=== PATIENT | male | born 1935 | race Caucasian/White ===

== ENCOUNTER 2016-11-09 12:38 | Inpatient (IN) | payer BC, OTHER ==
[2016-11-09] VITALS (7 sets, daily range): BP systolic 115–136; BP diastolic 71–91; PULSE 97–144; TEMP 36.7–37; O2SAT 94–99; BMI 28.8
[~2016-11-09] VITALS: Ht 177.8 cm; Wt 93.6 kg
[~2016-11-09 12:38] MED LIST: ASPEC81 PO; MULT-506 PO
[2016-11-09] MEDS ORDERED: FURO20TA PO (13:06)
[2016-11-09] MEDS ORDERED: TAMS0.4C38 PO (13:06)
[2016-11-09] MEDS ORDERED: CALC-51 PO (13:08)
[2016-11-09] MEDS ORDERED: CHOL2000 PO (13:08)
[2016-11-09] MEDS ORDERED: ASPI-232 PO (13:08)
[2016-11-09] MEDS ORDERED: METO-551 PO (13:08)
[2016-11-09] MEDS ORDERED: CALC500T83 PO (13:09)
[2016-11-09] MEDS ORDERED: DILTIAZEM HCL 5 MG/ML 5 ML VIAL IV STA ×2 (13:10)
[2016-11-09] MEDS ORDERED: CALC500C70 PO (13:10)
[2016-11-09] MEDS ORDERED: DILTIAZEM BOLUS / DRIP IV STA ×2 (13:10→14:48)
[2016-11-09] MEDS ORDERED: SODIUM CHLORIDE 0.9% 500ML 500 ML IV STA (13:14)
[2016-11-09] MEDS ORDERED: METOCLOPRAMIDE HCL INJ 5 MG/ML 2 ML VIAL IV STA (13:14)
[2016-11-09 13:22] LABS: BASO % 0.2 %; BASO ABS # 0.02 K/uL (0-0.2); COMPLETE YES; EOS % 3.1 %; HEMATOCRIT 29.9 % (42-52); IG% 0.5 %; LYMPH % 11.3 %; LYMPH ABS # 1.13 K/uL (1.2-3.4); MEAN CELL VOLUME 93.7 fL (80-100); MEAN CORPUSCULAR HEMOGLOBIN 32.3 pg (25-34); MEAN CORPUSCULAR HGB CONC 34.4 g/dl (32-36); MONO % 13.1 %; NEUT % 71.8 %; PLATELET COUNT 246 K/uL (130-400); RED BLOOD COUNT 3.19 M/uL (4.7-6.1); WHITE BLOOD COUNT 9.98 K/uL (4.8-10.8)
[2016-11-09 13:28] LABS: ALT/SGPT 27 U/L (12-78); BLOOD UREA NITROGEN 20 mg/dl (7-18); BUN/CREATININE RATIO 16.8 (10-20); CALCIUM 8.9 mg/dl (8.5-10.1); CARBON DIOXIDE 26 mmol/L (21-32); CHLORIDE 101 mmol/L (98-107); GLUCOSE 157 mg/dl (70-99); POTASSIUM 4.4 mmol/L (3.5-5.1); SODIUM 138 mmol/L (136-145)
[2016-11-09 13:34] LABS: ALKALINE PHOSPHATASE 80 U/L (45-117); AST/SGOT 18 U/L (15-37); CKMB/CK RATIO 5.1 (0-3.0)
--- NOTE | 2016-11-09 13:36 | DIAGNOSTIC IMAGING REPORT ---
SINGLE VIEW CHEST CLINICAL HISTORY: Atypical chest pain. Tachycardia. FINDINGS: An AP, portable, upright chest radiograph is correlated with radiograph of the thoracic spine dated 07/20/2016. The examination is degraded by portable technique and patient rotation. The heart is enlarged and there is atherosclerotic calcification of the thoracic aorta. There is evidence of previous cardiac valve surgery. The pulmonary vasculature is noncongested. There is elevation of the right hemidiaphragm with bibasilar atelectasis. Chronic residual thickening is observed. No airspace consolidation or pleural effusion is identified typical for pneumonia. A lobulated density projects over the lateral right upper lobe. This measures at least 3.6 cm and is of indeterminant significance. No pneumothorax is seen. The skeletal structures are osteopenic. There are healed left-sided rib fractures. Degenerative change is noted in the thoracic spine. IMPRESSION: 1. Cardiomegaly without radiographic evidence of congestive failure. 2. There is no airspace consolidation or pleural effusion. 3. There is an indeterminant 3.6 cm lobulated and possibly pleural-based density projecting over the right lateral upper chest. Follow-up with a contrast-enhanced chest CT is recommended for further assessment. Electronically signed by: Steven Foss M.D. 11/09/2016 1:34 PM Dictated Date/Time: 11/09/2016 1:31 PM
[2016-11-09] MEDS: DILTIAZEM HCL INJ 125 MG in DEXTROSE 5% 100ML IV PRN ×3 (14:04→21:20)
--- NOTE | 2016-11-09 14:12 | EMERGENCY ROOM VISIT NOTE ---
History Report prepared by Barak: Fantasma Webb Under the Supervision of: Dr. Billy Valentin M.D. First contact with patient: 13:04 Chief Complaint: REFERRED BY DOCTOR Stated Complaint: RAPID HEART RATE, SENT BY History of Present Illness The patient is a 81 year old male who presents to the Emergency Room with complaints of persistent tachycardia starting today. The patient currently denies any pain. He can feel a fast heart beat if he focuses but otherwise denies any heart palpitations. He denies any chest pain, shortness of breath, weakness, or any other complaints. The patient recently had an aortic valve replacement. Two days ago, he stopped taking his beta anatoliy because it was making him nauseous. At his PCP's office today, his heart rate was 155 beats per minute. He was referred to the Emergency Room by his PCP. Source of History: patient Onset: today Position: other (global) Symptom Intensity: No pain Quality: other (tachycardia) Timing: other (persistent) Associated Symptoms: No SOB, No chest pain, No weakness Review of Systems See HPI for pertinent positives & negatives. A total of 10 systems reviewed and were otherwise negative. Past Medical & Surgical Medical Problems: (1) Atrial flutter Surgical Problems: (1) H/O aortic valve replacement Family History Patient reports no known family medical history. Social History Smoking Status: Never Smoker Marital Status: Occupation Status: retired Current/Historical Medications Scheduled Aspirin (Aspir-81), 1 TAB PO BID Calcium/Vitamin D (Os-Gagan 500 Plus D), 1 TAB PO DAILY Cholecalciferol (Vitamin D3), 1 CAP PO DAILY Furosemide (Lasix), 20 MG PO DAILY Metoprolol Tartrate (Lopressor), 25 MG PO BID Multivitamin (Multivitamin), 1 TAB PO QPM Tamsulosin Hcl (Flomax), 0.4 MG PO PM Allergies Coded Allergies: Metoprolol (Verified Adverse Reaction, Mild, GI SYMPTOMS, 11/09/16) nausea Physical Exam Vital Signs Date Time Temp Pulse Resp B/P Pulse Ox O2 Delivery O2 Flow Rate FiO2 11/09/16 15:57 120 16 116/76 100 Room Air 11/09/16 15:31 148 24 105/71 99 Room Air 11/09/16 14:39 124 28 104/71 93 Room Air 11/09/16 14:13 103 22 101/51 100 Room Air 11/09/16 13:57 111 24 131/57 93 Room Air 11/09/16 13:41 114 11/09/16 13:39 123 26 115/80 93 Room Air 11/09/16 13:32 146 24 115/80 90 Room Air 11/09/16 13:06 99 Room Air 11/09/16 12:55 78 11/09/16 12:52 149 11/09/16 12:43 36.6 96 18 110/72 97 Room Air Physical Exam GENERAL: Patient is a healthy-appearing well-nourished HEAD: Normocephalic atraumatic EYES: Ocular movements intact pupils equal and react to light OROPHARYNX mucous membranes are moist no exudates present no erythema or edema present NECK: Supple no nuchal rigidity CHEST: Good equal expansion LUNGS: Clear and equal to auscultation CARDIAC: Normal S1 and S2 ABDOMEN: Soft nontender no guarding BACK: No CVA tenderness EXTREMITIES: No pain upon palpation normal muscle strength in all groups no clubbing cyanosis or edema NEURO: Patient is following commands is answering questions appropriately. Alert and oriented x3 Cranial Nerves 2-12 grossly intact Medical Decision & Procedures ER Provider Diagnostic Interpretation: X-ray results as stated below per interpretation by me and the radiologist: SINGLE VIEW CHEST CLINICAL HISTORY: Atypical chest pain. Tachycardia. FINDINGS: An AP, portable, upright chest radiograph is correlated with radiograph of the thoracic spine dated 07/20/2016. The examination is degraded by portable technique and patient rotation. The heart is enlarged and there is atherosclerotic calcification of the thoracic aorta. There is evidence of previous cardiac valve surgery. The pulmonary vasculature is noncongested. There is elevation of the right hemidiaphragm with bibasilar atelectasis. Chronic residual thickening is observed. No airspace consolidation or pleural effusion is identified typical for pneumonia. A lobulated density projects over the lateral right upper lobe. This measures at least 3.6 cm and is of indeterminant significance. No pneumothorax is seen. The skeletal structures are osteopenic. There are healed left-sided rib fractures. Degenerative change is noted in the thoracic spine. IMPRESSION: 1. Cardiomegaly without radiographic evidence of congestive failure. 2. There is no airspace consolidation or pleural effusion. 3. There is an indeterminant 3.6 cm lobulated and possibly pleural-based density projecting over the right lateral upper chest. Follow-up with a contrast-enhanced chest CT is recommended for further assessment. Electronically signed by: Steven Foss M.D. 11/09/2016 1:34 PM Dictated Date/Time: 11/09/2016 1:31 PM Laboratory Results 11/09/16 13:00 Red Blood Count 3.19, Mean Corpuscular Volume 93.7, Mean Corpuscular Hemoglobin 32.3, Mean Corpuscular Hemoglobin Concent 34.4, Mean Platelet Volume 9.0, Neutrophils (%) (Auto) 71.8, Lymphocytes (%) (Auto) 11.3, Monocytes (%) (Auto) 13.1, Eosinophils (%) (Auto) 3.1, Basophils (%) (Auto) 0.2, Neutrophils # (Auto ) 7.16, Lymphocytes # (Auto) 1.13, Monocytes # (Auto) 1.31, Eosinophils # (Auto ) 0.31, Basophils # (Auto) 0.02 11/09/16 13:00 Test 11/09/16 13:00 White Blood Count 9.98 K/uL (4.8-10.8) Red Blood Count 3.19 M/uL (4.7-6.1) Hemoglobin 10.3 g/dL (14.0-18.0) Hematocrit 29.9 % (42-52) Mean Corpuscular Volume 93.7 fL (80-100) Mean Corpuscular Hemoglobin 32.3 pg (25-34) Mean Corpuscular Hemoglobin Concent 34.4 g/dl (32-36) Platelet Count 246 K/uL (130-400) Mean Platelet Volume 9.0 fL (7.4-10.4) Neutrophils (%) (Auto) 71.8 % Lymphocytes (%) (Auto) 11.3 % Monocytes (%) (Auto) 13.1 % Eosinophils (%) (Auto) 3.1 % Basophils (%) (Auto) 0.2 % Neutrophils # (Auto) 7.16 K/uL (1.4-6.5) Lymphocytes # (Auto) 1.13 K/uL (1.2-3.4) Monocytes # (Auto) 1.31 K/uL (0.11-0.59) Eosinophils # (Auto) 0.31 K/uL (0-0.5) Basophils # (Auto) 0.02 K/uL (0-0.2) RDW Standard Deviation 51.6 fL (36.4-46.3) RDW Coefficient of Variation 15.2 % (11.5-14.5) Immature Granulocyte % (Auto) 0.5 % Immature Granulocyte # (Auto) 0.05 K/uL (0.00-0.02) Anion Gap 11.0 mmol/L (3-11) Est Creatinine Clear Calc Drug Dose 52.9 ml/min Estimated GFR () 64.4 Estimated GFR (Non- 55.6 BUN/Creatinine Ratio 16.8 (10-20) Calcium Level 8.9 mg/dl (8.5-10.1) Total Bilirubin 0.4 mg/dl (0.2-1) Direct Bilirubin 0.2 mg/dl (0-0.2) Aspartate Amino Transf (AST/SGOT) 18 U/L (15-37) Alanine Aminotransferase (ALT/SGPT) 27 U/L (12-78) Alkaline Phosphatase 80 U/L (45-117) Total Creatine Kinase 39 U/L (39-308) Creatine Kinase MB 2.0 ng/ml (0.5-3.6) Creatine Kinase MB Ratio 5.1 (0-3.0) Troponin I < 0.015 ng/ml (0-0.045) Total Protein 5.9 gm/dl (6.4-8.2) Albumin 3.1 gm/dl (3.4-5.0) Lipase 78 U/L (73-393) Labs reviewed by ED physician. Medications Administered Medications (Trade) Dose Ordered Sig/Rubens Route Start Time Stop Time Status Last Admin Dose Admin Diltiazem HCl (Cardizem Inj) 20 mg NOW STAT IV 11/09/16 13:10 11/09/16 13:14 DC 11/09/16 13:27 20 MG Diltiazem HCl 30 mg 30 mg NOW STAT IV 11/09/16 13:10 11/09/16 13:14 DC 11/09/16 13:52 30 MG Sodium Chloride (Nss 500ml) 500 ml @ 999 mls/hr Q31M STAT IV 11/09/16 13:14 11/09/16 13:44 DC 11/09/16 13:31 999 MLS/HR Metoclopramide HCl 10 mg 10 mg NOW STAT IV 11/09/16 13:14 11/09/16 13:15 DC 11/09/16 13:26 10 MG Diltiazem HCl 125 mg/Dextrose 125 ml @ 0 mls/hr Q0M PRN IV 11/09/16 13:30 12/09/16 13:29 11/09/16 14:04 5 MLS/HR Amiodarone HCL/ Dextrose 100 ml @ 600 mls/hr NOW ONCE IV 11/09/16 16:00 11/09/16 16:09 DC 11/09/16 16:58 600 MLS/HR Amiodarone HCL/ Dextrose (Nexterone / D5w) 200 ml @ 33.3 mls/hr Q6H1M IV 11/09/16 16:10 11/09/16 22:10 11/09/16 16:59 33.3 MLS/HR ECG Indication: tachycardia Rate (beats per minute): 148 Rhythm: atrial flutter Findings: no acute ischemic change, no ectopy, other (2:1 av conduction) Comparison ECG Date: no prior available Change: Repeat EKG showed atrial flutter, 96 beats per minute, variable AV block, no acute ischemic change. ED Course 1304: Past medical records reviewed. The patient was evaluated in room A09B. A complete history and physical examination was performed. 1310: Cardizem HCl 30 mg IV, Cardizem Inj 20 mg IV, Diltiazem HCl 1 ea IV 1314: Reglan Inj 10 mg IV, Sodium Chloride 500 ml @ 999 mls/hr IV 1330: Diltiazem HCl 125 mg/Dextrose 125 ml @ 0 mls/hr Protocol IV. Upon reexamination the patient is resting comfortably. I discussed results and treatment plan with the patient. He verbalizes agreement and understanding. [facility] The patient will be evaluated for further management. 1350: I reevaluated the patient who is doing well. Medical Decision Differential diagnosis: Etiologies such as cardiac ischemia, aortic dissection, pulmonary embolism, pneumonia, pneumothorax, musculoskeletal, infections, pericarditis, myocarditis , esophageal rupture, gastrointestinal, as well as others were entertained. This is an 81 year old who presents to the Emergency Department complaining of tachycardia. The patient has never had this problem before but he stopped taking his metoprolol on Tuesday because he thought it was giving him nausea. The patient is unsure as to when his tachycardia started. He is refusing metoprolol in the ED. For this reason he was given boluses of Cardizem x2 and placed on a cardizem drip. His repeat ekg showed a flutter. Based on this finding, i did discuss the case with the hospitalist service who agreed to admit the patient. Consults Time Called: 1325 Consulting Physician: Dr. Coburn from the [facility]ist Service Returned Call: [address] Coburn from the [facility]ist Service. Impression Primary Impression: Atrial flutter Scribe Attestation The scribe's documentation has been prepared under my direction and personally reviewed by me in its entirety. I confirm that the note above accurately reflects all work, treatment, procedures, and medical decision making performed by me. Departure Information Dispostion Being Evaluated By Hospitalist Referrals Jacinto Mcleod MD (PCP) Patient Instructions My [facility] Health Problem Qualifiers Primary Impression: Atrial flutter Atrial flutter type: unspecified Qualified Codes: I48.92 - Unspecified atrial flutter
[2016-11-09] MEDS ORDERED: SODIUM CHLORIDE 0.9% 1000ML 1,000 ML IV SCH (14:48)
[2016-11-09] MEDS ORDERED: ALUMINUM/MAGNESIUM/SIMETH (MAALOX MAX) 30 ML UDC PO PRN (15:00)
[2016-11-09] MEDS ORDERED: MAGNESIUM HYDROXIDE SUSP 30 ML UDC PO PRN (15:00)
[2016-11-09] MEDS ORDERED: ACETAMINOPHEN 325 MG TAB PO PRN (15:00)
[2016-11-09] MEDS ORDERED: POLYETHYLENE (MIRALAX) 17 GM PACK PO PRN (15:00)
[2016-11-09] MEDS ORDERED: ENOXAPARIN 1 MG/KG SQ SCH (15:00)
[2016-11-09] MEDS ORDERED: ONDANSETRON INJ 2 MG/ML 2 ML VIAL IV PRN (15:00)
[2016-11-09] MEDS ORDERED: SODIUM CHLORIDE 0.9% 1000ML 1,000 ML IV ONE (15:30)
--- NOTE | 2016-11-09 15:38 | History and Physical ---
History & Physical Date & Time of Service: Nov 09, 2016 at 15:16 Chief Complaint: Rapid Heart Rate, Sent By Primary Care Physician: Jacinto Mcleod MD History of Present Illness Source: patient Patient is a pleasant 81 y/o male, with PMHx of aortic stenosis s/p porcine valve replacement on 10/25/15, chronic lower extremity edema, and BPH, who presented to the ED because of tachycardia. Patient has home health 2x per week. Today when they checked his pulse, he was tachycardiac and sent him to the ED. EKG in ED demonstrated a. flutter. Patient is completely asymptomatic. Patient had an aortic valve replacement on 10/25 by [facility]. He was placed on Lopressor 25 mg PO BID postop, but patient stopped taking medication on 11/08 because of nausea and vomiting x5 days. Since discontinuing Lopressor, patient has not experienced any more N/V. Patient states he has had decreased appetite since the procedure, but is slowly starting to regain his appetite. Patient denies any fever, chills, sweats, lightheadedness, dizziness, vision changes, CP , palpitations, edema, SOB, wheezing, cough, abdominal pain, nausea, vomiting, diarrhea, urinary symptoms, melena, numbness/tingling, weakness, muscle/joint pain, anxiety/depression, active bleeding, or new skin discoloration/changes. Past Medical/Surgical History 1. Aortic stenosis s/p valve replacement 2. Chronic lower extremity edema 3. BPH Surgical: 1. Aortic valve replacement- porcine Family History Patient reports no known family medical history. Social History Smoking Status: Never Smoker Marital Status: Housing status: lives with significant other Occupational Status: retired Multi-Drug Resistant Organisms History of MDRO: No Allergies Coded Allergies: Metoprolol (Verified Adverse Reaction, Mild, GI SYMPTOMS, 11/09/16) nausea Home Medications Scheduled Aspirin (Aspir-81), 1 TAB PO BID Calcium/Vitamin D (Os-Gagan 500 Plus D), 1 TAB PO DAILY Cholecalciferol (Vitamin D3), 1 CAP PO DAILY Furosemide (Lasix), 20 MG PO DAILY Metoprolol Tartrate (Lopressor), 25 MG PO BID Multivitamin (Multivitamin), 1 TAB PO QPM Tamsulosin Hcl (Flomax), 0.4 MG PO PM Physical Exam Vital Signs Date Time Temp Pulse Resp B/P Pulse Ox O2 Delivery O2 Flow Rate FiO2 11/09/16 14:39 124 28 104/71 93 Room Air 11/09/16 14:13 103 22 101/51 100 Room Air 11/09/16 13:57 111 24 131/57 93 Room Air 11/09/16 13:41 114 11/09/16 13:39 123 26 115/80 93 Room Air 11/09/16 13:32 146 24 115/80 90 Room Air 11/09/16 13:06 99 Room Air 11/09/16 12:55 78 11/09/16 12:52 149 11/09/16 12:43 36.6 96 18 110/72 97 Room Air General Appearance: no apparent distress Head: normocephalic, atraumatic Eyes: PERRL ENT: hearing grossly normal Neck: supple Respiratory/Chest: lungs clear, no respiratory distress, no accessory muscle use Cardiovascular: + tachycardia, + systolic murmur, + abnormal rhythm Abdomen/GI: normal bowel sounds, non tender, soft Back: normal inspection Extremities/Musculoskelatal: no calf tenderness, + swelling (+2 pitting edema of bilateral lower extremities- baseline per patient ) Neurologic/Psych: alert, normal mood/affect, oriented x 3 Skin: normal color, warm/dry, no rash Diagnostics Laboratory Results Results Past 24 Hours Test 11/09/16 13:00 Range/Units White Blood Count 9.98 4.8-10.8 K/uL Red Blood Count 3.19 4.7-6.1 M/uL Hemoglobin 10.3 14.0-18.0 g/dL Hematocrit 29.9 42-52 % Mean Corpuscular Volume 93.7 80-100 fL Mean Corpuscular Hemoglobin 32.3 25-34 pg Mean Corpuscular Hemoglobin Concent 34.4 32-36 g/dl Platelet Count 246 130-400 K/uL Mean Platelet Volume 9.0 7.4-10.4 fL Neutrophils (%) (Auto) 71.8 % Lymphocytes (%) (Auto) 11.3 % Monocytes (%) (Auto) 13.1 % Eosinophils (%) (Auto) 3.1 % Basophils (%) (Auto) 0.2 % Neutrophils # (Auto) 7.16 1.4-6.5 K/uL Lymphocytes # (Auto) 1.13 1.2-3.4 K/uL Monocytes # (Auto) 1.31 0.11-0.59 K/uL Eosinophils # (Auto) 0.31 0-0.5 K/uL Basophils # (Auto) 0.02 0-0.2 K/uL RDW Standard Deviation 51.6 36.4-46.3 fL RDW Coefficient of Variation 15.2 11.5-14.5 % Immature Granulocyte % (Auto) 0.5 % Immature Granulocyte # (Auto) 0.05 0.00-0.02 K/uL Sodium Level 138 136-145 mmol/L Potassium Level 4.4 3.5-5.1 mmol/L Chloride Level 101 98-107 mmol/L Carbon Dioxide Level 26 21-32 mmol/L Anion Gap 11.0 3-11 mmol/L Blood Urea Nitrogen 20 7-18 mg/dl Creatinine 1.20 0.60-1.40 mg/dl Est Creatinine Clear Calc Drug Dose 52.9 ml/min Estimated GFR () 64.4 Estimated GFR (Non- 55.6 BUN/Creatinine Ratio 16.8 10-20 Random Glucose 157 70-99 mg/dl Calcium Level 8.9 8.5-10.1 mg/dl Total Bilirubin 0.4 0.2-1 mg/dl Direct Bilirubin 0.2 0-0.2 mg/dl Aspartate Amino Transf (AST/SGOT) 18 15-37 U/L Alanine Aminotransferase (ALT/SGPT) 27 12-78 U/L Alkaline Phosphatase 80 45-117 U/L Total Creatine Kinase 39 39-308 U/L Creatine Kinase MB 2.0 0.5-3.6 ng/ml Creatine Kinase MB Ratio 5.1 0-3.0 Troponin I < 0.015 0-0.045 ng/ml Total Protein 5.9 6.4-8.2 gm/dl Albumin 3.1 3.4-5.0 gm/dl Lipase 78 73-393 U/L Diagnostic Radiology SINGLE VIEW CHEST CLINICAL HISTORY: Atypical chest pain. Tachycardia. FINDINGS: An AP, portable, upright chest radiograph is correlated with radiograph of the thoracic spine dated 07/20/2016. The examination is degraded by portable technique and patient rotation. The heart is enlarged and there is atherosclerotic calcification of the thoracic aorta. There is evidence of previous cardiac valve surgery. The pulmonary vasculature is noncongested. There is elevation of the right hemidiaphragm with bibasilar atelectasis. Chronic residual thickening is observed. No airspace consolidation or pleural effusion is identified typical for pneumonia. A lobulated density projects over the lateral right upper lobe. This measures at least 3.6 cm and is of indeterminant significance. No pneumothorax is seen. The skeletal structures are osteopenic. There are healed left-sided rib fractures. Degenerative change is noted in the thoracic spine. IMPRESSION: 1. Cardiomegaly without radiographic evidence of congestive failure. 2. There is no airspace consolidation or pleural effusion. 3. There is an indeterminant 3.6 cm lobulated and possibly pleural-based density projecting over the right lateral upper chest. Follow-up with a contrast-enhanced chest CT is recommended for further assessment. Electronically signed by: Steven Foss M.D. 11/09/2016 1:34 PM Dictated Date/Time: 11/09/2016 1:31 PM The status of this report is Signed. Draft = Not yet reviewed or approved by Radiologist. Signed = Reviewed and approved by Radiologist. EKG TOSHA MILLER ID:[id number] 09-NOV-2016 12:49:24 [facility] Atrial flutter with 2:1 A-V conduction ST & T wave abnormality, consider inferior ischemia ST & T wave abnormality, consider anterolateral ischemia Abnormal ECG No previous ECGs available 25mm/s 10mm/mV 150Hz 8.0 SP2 12SL 241 DARRIAN: 0 Referred by: Unconfirmed Vent. rate 148 BPM SC interval * ms QRS duration 72 ms QT/QTc 332/521 ms P-R-T axes 208 29 -[birth year] -1935 (81 yr) Male Room:A9 Loc:15 Book Mender:ZHANG Jenkins ind: Impression Assessment and Plan 81 y/o male, with PMHx of aortic stenosis s/p porcine valve replacement on , chronic lower extremity ed4ema, and BPH, who presented to the ED because of tachycardia. A. Flutter on EKG: - Admit tele - Continue IV Cardizem drip - IV Amiodarone 150 mg bolus, then continue with drip- patient remained in 140s despite receiving ~50 mg IV Cardizem in ED - Continue ASA 81 mg PO BID - Consult cardiology, appreciate recommendations -- Patient follows with [facility], Dr. Mcleod - NPO after midnight, ?MÓNICA/cardioversion by cardiology - IV NSS @ 100 ml/hr x1 bag - Check mag level, patient had nausea/vomiting x5 days because of adverse reaction to Lopressor - Follow CBC and PRP BPH: - Continue Flomax 0.4 mg PO QPM Chronic lower extremity edema: - Patient states swelling is currently at baseline - Continue Lasix 20 mg PO daily Lesion of right lateral upper chest noted on CXR: - Recommend CT follow-up - CXR- Cardiomegaly without radiographic evidence of congestive failure. There is no airspace consolidation or pleural effusion. There is an indeterminant 3.6 cm lobulated and possibly pleural-based density projecting over the right lateral upper chest. GI Prophylaxis: - Maalox PRN - IV Zofran PRN - Colace and/or Milk of Mag PRN DVT prophylaxis: - Eliquis 5 mg PO BID per cardiology - MARISA and SCDs Code Status: - LEVEL I, FULL Dispo: - Lives with at home. Has home health 2x per week. Level of Care Telemetry Resuscitation Status FULL RESUSCITATION VTE Prophylaxis VTE Risk Assessment Done? Y/N: Yes Risk Level: High Given or contraindicated: Enoxaparin (Lovenox)SQ, T.E.D. Stockings, SCD's
[2016-11-09] MEDS ORDERED: AMIODARONE IV BOLUS / DRIP IV STA (15:45)
[2016-11-09] MEDS ORDERED: AMIODARONE / D5W 100 ML IV ONE (16:00)
[2016-11-09] MEDS ORDERED: AMIODARONE / D5W 200 ML IV SCH ×2 (16:10→22:10)
[2016-11-09] MEDS: TAMSULOSIN HCL 0.4 MG CAP PO SCH (20:28)
[2016-11-09] MEDS: MULTIVITAMIN TAB PO SCH (20:28)
[2016-11-09] MEDS ORDERED: NURSING VERBAL MED ORDER ONE (20:30)
[2016-11-09] MEDS ORDERED: DILTIAZEM HCL INJ 10 MG in SYRINGE 0 ML IV SCH (20:30)
[2016-11-09] MEDS: APIXABAN 2.5 MG TAB PO SCH (20:35)
[2016-11-09] MEDS ORDERED: ASPIRIN 81 MG ECTAB PO SCH (21:00)
[2016-11-09] MEDS ORDERED: AMIODARONE HCL INJ 50 MG/ML 3 ML VIAL IV STA (22:52)
[2016-11-09] MEDS ORDERED: AMIODARONE / D5W 100 ML IV SCH (23:00)
[2016-11-10] VITALS (24 sets, daily range): BP systolic 61–146; BP diastolic 44–88; PULSE 82–137; TEMP 36.4–37; O2SAT 90–99
[2016-11-10] MEDS: DILTIAZEM HCL INJ 125 MG in DEXTROSE 5% 100ML IV PRN ×3 (01:45→16:00)
[2016-11-10] MEDS ORDERED: NITROGLYCERIN OINT 2% 1GM PACKET ONE (05:14)
[2016-11-10] MEDS ORDERED: NURSING VERBAL MED ORDER ONE ×8 (05:30→15:15)
--- NOTE | 2016-11-10 05:31 | Progress Note ---
Progress Note RESIDENT NIGHT CALL COVERAGE Overnight, HR was elevated on multiple occasions. Initially, pt was only on amiodarone drip with bolus. Diltiazem drip with bolus was added. Later a further dose of amiodarone was added. His HR responded eventually. Around 5:15 AM, I was called to see patient for left sided chest and shoulder pain. came immediately to see patient, he was getting EKG, and talking well. Reports pain started 15-20 minutes ago and has been persistent, came on own its own. Does not radiate, feels like a dull ache. Patient confirmed that he is a FULL CODE. Chart reviewed - pt recently had aortic valve replacement at [facility] at beginning of month, was seen by home health who told him to come in. No chest pain prior to this. Doctorate Of Chiropractic is Dr Stafford, PCP is Dr Mcleod ([facility]). Admitted for tachycardia. Feels unwell with metoprolol - causes n/v. O/E Gen - Awake, alert CVS - irregularly irregular. systolic murmur audible over precordium Chest - CTAB Abd- SNT, BS active Ext - no edema EKGs: 5:12 AM - HR 98 bpm. Atrial flutter with variable block. No ST elevation. Previous EKGs earlier 16:20 were atrial flutter with 2:1 block Previous EKG at 14:09 also atrial flutter with variable block. Looks similar to most recent. Assessment - Ischemia - tachycardia induced vs coronary vs Anxiety Plan 3rd set of troponins taken just now with routine labs (may consider getting 4th? ) 1 inch nitropaste On further review, 529AM - pt reports pain is tolerable. 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
[2016-11-10 05:35] LABS: HEMATOCRIT 28.3 % (42-52); MEAN CELL VOLUME 93.4 fL (80-100); MEAN CORPUSCULAR HEMOGLOBIN 32.3 pg (25-34); MEAN CORPUSCULAR HGB CONC 34.6 g/dl (32-36); MEAN PLATELET VOLUME 8.6 fL (7.4-10.4); PLATELET COUNT 214 K/uL (130-400); RED BLOOD COUNT 3.03 M/uL (4.7-6.1); WHITE BLOOD COUNT 9.71 K/uL (4.8-10.8)
[2016-11-10] MEDS: NITROGLYCERIN OINT 2% 1GM PACKET EXT SCH ×3 (05:53→17:37)
[2016-11-10 06:06] LABS: BLOOD UREA NITROGEN 17 mg/dl (7-18); BUN/CREATININE RATIO 15.8 (10-20); CALCIUM 8.2 mg/dl (8.5-10.1); CARBON DIOXIDE 26 mmol/L (21-32); CHLORIDE 102 mmol/L (98-107); GLUCOSE 184 mg/dl (70-99); MAGNESIUM 2.1 mg/dl (1.8-2.4); POTASSIUM 4.1 mmol/L (3.5-5.1); SODIUM 138 mmol/L (136-145)
[2016-11-10] MEDS ORDERED: MoRPHine SULFATE 2 MG/ML CARP IV PRN (07:30)
[2016-11-10] MEDS ORDERED: NITROGLYCERIN 0.4 MG SL PER TAB CHARGE SL PRN (07:30)
[2016-11-10] MEDS ORDERED: MoRPHine SULFATE 2 MG/ML CARP ONE (07:31)
[2016-11-10] MEDS: FUROSEMIDE 20 MG TAB PO SCH ×2 (09:00→13:00)
[2016-11-10] MEDS: APIXABAN 2.5 MG TAB PO SCH ×2 (09:21→21:34)
[2016-11-10] MEDS ORDERED: CANNULA ONE ×2 (09:31)
[2016-11-10] MEDS ORDERED: BENZOCAIN/TETRACA/BUTAM SPRAY 200 APPLN/20 GM SPRY ONE (09:31)
--- NOTE | 2016-11-10 10:40 | Cardiology Procedure Brief Nt ---
Preliminary Cardiology Note Procedure Date Nov 10, 2016. Pre-Procedure Diagnosis Atrial Flutter Post-Procedure Diagnosis Atrial Fib Procedure(s) Performed Attempted to pass MÓNICA probe unsuccessfully [facility] Representative Nydia Switching Operator(s) none Estimated Blood Loss none Medication(s) Anesthesia provided by anesthesia department with Propofol and neosyneprine Preliminary Findings small bruise right posterior oropharynx Recommendations medical Tx and possible CV in 3 weeks Specimens none Complication(s) Hypotensive with propofol requiring norsynephrine SBP at end of procedure with patient awake was back to baseline Disposition
--- NOTE | 2016-11-10 10:44 | Cardiology Follow-Up ---
Subjective General Date of Service: Nov 10, 2016. History of Present Illness The patient is a 81 year old male Allergies Coded Allergies: Metoprolol (Verified Adverse Reaction, Mild, GI SYMPTOMS, 11/09/16) nausea Social History Smoking Status: Never Smoker Hx Tobacco Use In Past Year?: No Hx Alcohol Use - Type And Amou: No Hx Substance Use - Type And Am: No Physical Exam Vital Signs Last Vital Signs Documentation Date Time Temp Pulse Resp B/P Pulse Ox O2 Delivery O2 Flow Rate FiO2 11/10/16 10:31 101 16 88/61 99 Nasal Cannula 4 11/10/16 08:00 36.4 Assessment and Plan Assessment and Plan Unable to pass MÓNICA probe and hypotensive with propofol required neosynephrine to support BP Mild sore throat after NPO four hours then cold liquids first, if tolerated, if moderate to severe Pain ENT evaluation Now in afib with better rate control Plan apixaban BID Cardizem CD 120mg to start tomorrow Cardizem drip if HR fast and BP is stable this afternoon Limited bedside echo" No effusion Normal LV function AoV not well seen but gradients not high RV dilated with severe RV hypokinesis D/w in detail Laboratory Results Last 24 Hours Test 11/09/16 13:00 11/09/16 21:00 11/09/16 21:10 11/10/16 05:00 White Blood Count 9.98 K/uL Red Blood Count 3.19 M/uL Hemoglobin 10.3 g/dL Hematocrit 29.9 % Mean Corpuscular Volume 93.7 fL Mean Corpuscular Hemoglobin 32.3 pg Mean Corpuscular Hemoglobin Concent 34.4 g/dl Platelet Count 246 K/uL Mean Platelet Volume 9.0 fL Neutrophils (%) (Auto) 71.8 % Lymphocytes (%) (Auto) 11.3 % Monocytes (%) (Auto) 13.1 % Eosinophils (%) (Auto) 3.1 % Basophils (%) (Auto) 0.2 % Neutrophils # (Auto) 7.16 K/uL Lymphocytes # (Auto) 1.13 K/uL Monocytes # (Auto) 1.31 K/uL Eosinophils # (Auto) 0.31 K/uL Basophils # (Auto) 0.02 K/uL RDW Standard Deviation 51.6 fL RDW Coefficient of Variation 15.2 % Immature Granulocyte % (Auto) 0.5 % Immature Granulocyte # (Auto) 0.05 K/uL Sodium Level 138 mmol/L Potassium Level 4.4 mmol/L Chloride Level 101 mmol/L Carbon Dioxide Level 26 mmol/L Anion Gap 11.0 mmol/L Blood Urea Nitrogen 20 mg/dl Creatinine 1.20 mg/dl Est Creatinine Clear Calc Drug Dose 52.9 ml/min Estimated GFR () 64.4 Estimated GFR (Non- 55.6 BUN/Creatinine Ratio 16.8 Random Glucose 157 mg/dl Calcium Level 8.9 mg/dl Total Bilirubin 0.4 mg/dl Direct Bilirubin 0.2 mg/dl Aspartate Amino Transf (AST/SGOT) 18 U/L Alanine Aminotransferase (ALT/SGPT) 27 U/L Alkaline Phosphatase 80 U/L Total Creatine Kinase 39 U/L Creatine Kinase MB 2.0 ng/ml 1.7 ng/ml Creatine Kinase MB Ratio 5.1 Troponin I < 0.015 ng/ml < 0.015 ng/ml Total Protein 5.9 gm/dl Albumin 3.1 gm/dl Lipase 78 U/L Test 11/10/16 05:23 White Blood Count 9.71 K/uL Red Blood Count 3.03 M/uL Hemoglobin 9.8 g/dL Hematocrit 28.3 % Mean Corpuscular Volume 93.4 fL Mean Corpuscular Hemoglobin 32.3 pg Mean Corpuscular Hemoglobin Concent 34.6 g/dl RDW Standard Deviation 51.2 fL RDW Coefficient of Variation 15.2 % Platelet Count 214 K/uL Mean Platelet Volume 8.6 fL Sodium Level 138 mmol/L Potassium Level 4.1 mmol/L Chloride Level 102 mmol/L Carbon Dioxide Level 26 mmol/L Anion Gap 10.0 mmol/L Blood Urea Nitrogen 17 mg/dl Creatinine 1.10 mg/dl Est Creatinine Clear Calc Drug Dose 57.7 ml/min Estimated GFR () 71.6 Estimated GFR (Non- 61.8 BUN/Creatinine Ratio 15.8 Random Glucose 184 mg/dl Calcium Level 8.2 mg/dl Magnesium Level 2.1 mg/dl Creatine Kinase MB 1.7 ng/ml Troponin I < 0.015 ng/ml
--- NOTE | 2016-11-10 10:47 | Clinical Documentation Query ---
BELA Khoury : CLINICAL DOCUMENTATION QUERY Patient is a an 81 year old male admitted about two weeks postoperatively from porcine aortic valve replacement for new onset of atrial flutter. Additionally, this is in the setting of non-compliance with prescribed beta blockade regimen. Please clarify as able and as clinically appropriate. Thank you. In your clinical opinion is this patient being managed for: ( ) Postoperative atrial flutter, a complication of bioprosthetic AVR ( ) Atrial flutter due to non-compliance with prescribed beta blockade regimen ( ) Postoperative atrial flutter, a complication of bioprosthetic AVR and atrial flutter due to non-compliance with prescribed beta blockade regimen ( x) Other explanation of clinical findings (Please Explain) - see notes - probably all of above ( ) Unable to determine (Please Define) ( ) Need to Discuss ( ) Not Agree The medical record reflects the following clinical findings, treatment, and risk factors. Clinical Indicators: As above Treatment: Cardizem infusion, IV Amiodarone, ASA, cardiology consultation, possible MÓNICA/CV, IVF, serial labs Risk Factors: AVR and non-compliance with beta anatoliy postoperatively. Please clarify and document your clinical opinion in the progress notes and discharge summary. Terms such as "probable", "suspected", "likely", "questionable", "possible", or "still to be ruled out" are acceptable. IF IN AGREEMENT, YOU MUST DOCUMENT ABOVE DIAGNOSTIC STATEMENT IN DAILY PROGRESS NOTES AND DISCHARGE SUMMARY. This document is not part of the patient's record. Thank You, Simba William, IVETTE [phone]
[2016-11-10] MEDS ORDERED: PROPOFOL IV EMULSION 10 MG/ML 20 ML VIAL IV ONE (10:56)
[2016-11-10] MEDS ORDERED: LIDOCAINE HCL 2% 2 ML VIAL (20MG/ML) ONE (10:56)
--- NOTE | 2016-11-10 11:09 | DIAGNOSTIC IMAGING REPORT ---
CHEST ONE VIEW PORTABLE CLINICAL HISTORY: Shortness of breath COMPARISON STUDY: 11/09/2016 FINDINGS: The heart is enlarged. There is a small right pleural effusion. There is mild elevation interstitium, likely representing mild pulmonary vascular congestion.. There is a persistent pleural-based opacity within the right upper lung zone measuring 3.5 cm. Multiple old left-sided rib fractures are visualized.[ IMPRESSION: 1. Cardiomegaly and mild interstitial thickening, likely representing mild pulmonary vascular congestion. 2. Small right pleural effusion 3. Stable 3.5 cm pleural-based opacity within the right upper lung zone laterally Electronically signed by: John Luke M.D. 11/10/2016 11:07 AM Dictated Date/Time: 11/10/2016 11:05 AM
--- NOTE | 2016-11-10 11:10 | OPERATIVE REPORT ---
DATE OF OPERATION: 11/10/2016 The patient was brought to the cardiac catheterization laboratory where anesthesia provided sedation. The plan was for a MÓNICA/cardioversion. We were unable to pass the MÓNICA probe after multiple attempts, even with manipulation of his jaw. In addition, he had hypotension with additional doses of propofol and it was deemed that we were better to stop the procedure rather than continue with his associated hypotension. He was given Patrick-Synephrine by anesthesia, which improved his blood pressure. He awoke at the end of the procedure, he had a mild sore throat. There appears to be an area of bruising in the right posterior oropharynx. Next, there was no blood at any time with suctioning during the attempted procedure. At the end of the procedure, he was answering questions, his blood pressure was stable. He will be monitored now in the cardiac catheterization laboratory. In addition, a bedside echocardiogram was performed. His LV size and function was normal. There was no pericardial effusion. His aortic valve was not well seen, but appears to have appropriate hemodynamics. His right heart though is severely dilated and hypokinetic. According to the postoperative MÓNICA report 2 weeks ago, this would be a new finding. With the procedure it looks like he converted from atrial flutter to atrial fibrillation, and with afib his heart rate has been much better controlled. He then converted back to Atrial Flutter and appeared to be in CHF. In light of his hemodynamic issues and CHF he was transferred to the ICU for close monitoring. I attest to the content of the Intraoperative Record and any orders documented therein. Any exceptions are noted below. YESY
[2016-11-10] MEDS ORDERED: OPTIRAY 320 IV PRN (11:30)
[2016-11-10] MEDS ORDERED: AMIODARONE IV BOLUS / DRIP IV STA (11:36)
--- NOTE | 2016-11-10 12:25 | Anesthesiology Progress Note ---
Anesthesia Post Op Note Date & Time Nov 10, 2016 at 12:25 Vital Signs Pain Intensity: 0 Vital Signs Past 12 Hours Date Time Temp Pulse Resp B/P Pulse Ox O2 Delivery O2 Flow Rate FiO2 11/10/16 11:10 110 16 133/45 92 Nasal Cannula 4 11/10/16 10:55 111 16 99/61 92 Nasal Cannula 4 11/10/16 10:35 130 16 97/76 95 Nasal Cannula 4 11/10/16 10:31 101 16 88/61 99 Nasal Cannula 4 11/10/16 10:26 82 16 88/50 99 Nasal Cannula 4 11/10/16 10:21 92 16 80/44 99 Nasal Cannula 4 11/10/16 10:16 115 16 61/45 99 Nasal Cannula 4 11/10/16 10:12 118 16 82/52 99 Nasal Cannula 4 11/10/16 10:07 129 16 113/64 99 Nasal Cannula 4 11/10/16 08:00 98 Nasal Cannula 2.0 11/10/16 08:00 36.4 137 24 109/88 98 Nasal Cannula 2.0 11/10/16 05:16 106 24 104/79 98 Nasal Cannula 2.0 11/10/16 04:04 36.9 115 24 135/69 92 Room Air 11/10/16 04:01 Room Air 11/10/16 03:47 36.9 115 24 135/69 92 Room Air 11/10/16 03:15 126 11/10/16 00:56 94 Notes Mental Status: alert / awake / arousable, participated in evaluation Pt Amnestic to Procedure: Yes Nausea / Vomiting: adequately controlled Pain: adequately controlled Airway Patency, RR, SpO2: stable & adequate BP & HR: stable & adequate Hydration State: stable & adequate Anesthetic Complications: no major complications apparent
--- NOTE | 2016-11-10 12:33 | DIAGNOSTIC IMAGING REPORT ---
CT ANGIOGRAPHY OF THE CHEST, ABDOMEN, AND PELVIS CLINICAL HISTORY: Chest pain radiating to back. Hypotension. Recent aortic valve replacement. COMPARISON STUDY: Chest radiograph November 09, 2016 and November 10, 2016. TECHNIQUE: Before and following the IV administration of 120 mL of Optiray-320, helical axial images of the chest, abdomen and pelvis were obtained. Maximal intensity projections and sagittal and coronal reformats were viewed on an independent 3D workstation. IV contrast was administered without complication. CT DOSE: 1471.61 mGy.cm FINDINGS: The heart is moderately enlarged. There are post surgical findings consistent with an aortic valve replacement. There is no intramural hematoma or aortic dissection. There are findings consistent with a right-sided thoracotomy for aortic valve replacement. A moderate right pleural effusion is present. A small left pleural effusion is noted. The lungs are suboptimally assessed due to respiratory motion. There is no significant pericardial effusion. There is mild dilatation of the central pulmonary arteries. No enlarged thoracic lymph nodes are present. There is trace gas within the operative bed, anterior to the ascending aorta. The liver, spleen, adrenal glands, kidneys and pancreas are unremarkable with exception of a centimeter right renal calculus and bilateral parapelvic cysts. Note is made of hypodense nonenhancing abnormalities within each groin. The right groin abnormality measures 7 x 3.9 cm. These are likely postprocedural. No pseudoaneurysm is identified on the CTA. There is extensive atherosclerotic plaque within the abdominal aorta and the branch vessels. Thoracic spine compression fractures are incidentally noted. IMPRESSION: 1. Postsurgical findings consistent with a right anterior thoracotomy and aortic valve replacement. Small amount of fluid and gas within the operative bed is within normal limits in the early postoperative setting. No aortic dissection. No rupture. 2. Moderate right and small left pleural effusions with associated opacity suggestive atelectasis. 3. Deformity of the anterior right chest wall which is likely postsurgical. 4. Hypodense abnormalities within each groin, as described above. These are likely postprocedural and may reflect seromas or resolving hematomas. No pseudoaneurysm identified. Electronically signed by: Mendel Shelby M.D. 11/10/2016 12:31 PM Dictated Date/Time: 11/10/2016 12:05 PM
[2016-11-10] MEDS ORDERED: AMIODARONE 150MG / 100ML D5W ONE ×2 (12:42→14:39)
[2016-11-10] MEDS: AMIODARONE / D5W 200 ML IV SCH (12:59)
[2016-11-10 13:00] LABS: HEMATOCRIT 28.5 % (42-52); MEAN CELL VOLUME 93.8 fL (80-100); MEAN CORPUSCULAR HEMOGLOBIN 32.2 pg (25-34); MEAN CORPUSCULAR HGB CONC 34.4 g/dl (32-36); MEAN PLATELET VOLUME 8.8 fL (7.4-10.4); PLATELET COUNT 207 K/uL (130-400); RED BLOOD COUNT 3.04 M/uL (4.7-6.1); WHITE BLOOD COUNT 14.58 K/uL (4.8-10.8)
[2016-11-10] MEDS: ENOXAPARIN 100 MG/1ML SYR SQ SCH ×2 (13:00→13:04)
[2016-11-10] MEDS: CALCIUM 600MG + VIT D 400 IU TAB PO SCH (13:00)
[2016-11-10 13:15] LABS: INR 1.2 (0.9-1.1); PROTHROMBIN TIME (PATIENT) 13.1 SECONDS (9.0-12.0)
[2016-11-10] MEDS ORDERED: FUROSEMIDE 40 MG/4 ML VIAL IV STA (13:20)
--- NOTE | 2016-11-10 14:15 | CARDIOLOGY CONSULTATION ---
DATE OF CONSULTATION: 11/10/2016 REQUESTING PHYSICIAN: Dr. Mati Kerr. PRIVATE DUTY NURSE: Kiko Stafford DO, of [facility] cardiology. Dear Dr. Kerr, Thank you for requesting cardiology consultation on Eligio in regards to his atrial flutter with a rapid ventricular response. As you know, he recently underwent a minimally invasive aortic valve (right thoracotomy) replacement on 10/25/2016 at [facility]. The procedure went well. He was subsequently discharged home. Preoperative cardiac catheterization revealed no evidence of significant epicardial coronary artery disease. He was discharged on beta blockers and with that, he had significant nausea and vomiting after every dose. Over the weekend, he stopped his beta blockers and then contacted us. With stopping the beta blockers, the nausea and vomiting abated. Unfortunately, homecare was in visiting him and his heart rate was very fast at 150 beats per minute. He really did not feel any fluttering, although he notes he was slightly more short of breath, he believes starting on Tuesday. They contacted our office and given the fact he had a rate of 150 beats per minute, we were concerned about atrial flutter postoperatively. In the Emergency Room, his EKG does confirm atrial flutter with 2:1 conduction. He was placed on diltiazem and amiodarone as his heart rate was very difficult to control and even this morning, remains significantly difficult to control. About 5:00 this morning, he had some chest tightness and some left shoulder pain. His EKG was unchanged. His troponins have been negative. He notes that it is slightly worse with a deep breath. It is slightly better sitting up. He denies any fevers or chills or recent sick contacts. He has chronic lower extremity edema, worse on the right compared to the left. He notes since the surgery, the left lower extremity edema has significantly improved. He denies any lightheadedness, dizziness, presyncope, and syncope. He has not had any difficulty swallowing. His appetite has been stable. His weight is relatively stable and he denies a cough, fevers, chills, dark stools, black stools, bleeding or bruising. The rest of review of systems is otherwise negative. PAST MEDICAL HISTORY: 1. New onset atrial flutter, status post open heart surgery, October 2016. 2. 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 3. Preserved left ventricular systolic function in the postoperative period. 4. INTOLERANCE TO METOPROLOL, WHICH CAUSED NAUSEA AND VOMITING. 5. Chronic lower extremity edema, especially on the right related to prior leg injury and chronic venous insufficiency. 6. History of basal cell and squamous cell carcinomas. 7. Preoperative cardiac catheterization with a 20% ostial left main lesion and a 20% mid LAD lesion and no occlusive disease in the circumflex or the right dominant coronary artery. FAMILY HISTORY: Dad at 86 asleep. Mom lived into her late 80s. SOCIAL HISTORY: He denies any tobacco. Prior to surgery, he had a glass of wine every other day. 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 He is . ALLERGIES: No known drug allergies. MEDICATIONS: Reviewed in electronic medical record. PHYSICAL EXAMINATION: GENERAL: He is awake, alert, and oriented x3. He is in no acute distress, although he does look short of breath talking in sentences. VITAL SIGNS: His heart rates vary between 100 and 120 beats per minute on IV diltiazem and amiodarone. His respirations are 24, his blood pressure 104/79, and his sat is 98% on 2 liters. HEENT: Carotid upstrokes could not be assessed very well due to his tachycardia. His jugular venous pressure appeared mildly elevated. Sclerae is anicteric. His hearing is normal. LUNGS: Clear to auscultation bilaterally. No rales, rhonchi or wheezing. HEART: Regular (tachycardic). No appreciable murmurs, rubs or gallops. ABDOMEN: Soft, nontender, and nondistended. Positive bowel sounds. EXTREMITIES: No clubbing or cyanosis. He has trivial edema on the left. Significant chronic edema on the right. PSYCHIATRIC: His affect was appropriate. NEUROLOGIC: He is awake, alert and oriented x3. His postoperative MÓNICA was reviewed. LABORATORY STUDIES: Hemoglobin 9.8 and platelet count of 214. Sodium 138, potassium 4.4, BUN 20, and creatinine 1.20. His AST and ALT were normal. Troponins are negative x3. Chest x-ray: Cardiomegaly without evidence of heart failure. No airspace consolidation or pleural effusion. A 3.6-cm lobulated pleural based density. IMPRESSION: 1. New onset atrial flutter, status post bioprosthetic aortic valve replacement. 2. INTOLERANCE TO METOPROLOL, DUE TO SEVERE NAUSEA AND VOMITING. 3. Status post 25-mm bioprosthetic aortic valve replacement on 10/25/2016. 4. Mild left main and LAD disease preoperatively. 5. Chronic lower extremity edema on the right secondary to lymphedema. 6. 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 Unfortunately, as I discussed with him, he can not be so nauseous and vomiting and stay on the medication. I did reach out to [facility]'s pharmacy to see if they think that this is going to be a class defect or just related to metoprolol. In light of that, I recommend MÓNICA cardioversion. We discussed options including medical therapy, although his flutter rate has been very difficult to control, not unexpectedly. The second option was MÓNICA cardioversion as we do not know how long he has been in atrial flutter and left atrial thrombus would need to be excluded before cardioversion. The third option being a flutter ablation, which I would recommend only if he has recurrent flutter after plan MÓNICA cardioversion. In light of that, we have agreed to a MÓNICA cardioversion. I discussed the risks and benefits of MÓNICA as well as cardioversion in detail including less than 1% risk of stroke, skin najera, low blood pressure, high blood pressure, slow heart rate, fast heart rate, one to ten thousand risks of esophageal perforation, damage to his teeth, heart attack, stroke and . I do not believe his chest pain is related to coronary ischemia and it may just be related to his underlying tachycardia and mild CHF. The other possibility is pericarditis. I do not appreciate a rub, although it is slightly worse with a deep breath and slightly better sitting forward. In reviewing his EKGs from the middle of the night, he was in atrial flutter at a rate of 98 beats per minute with nonspecific T-wave changes. There were no acute ST-T changes to suggest ischemia. I will plan to have him undergo MÓNICA cardioversion this morning at 10:00 a.m. Based on the results of that, we can determine whether he can be discharged later this afternoon or tomorrow morning. Thank you for allowing us to participate in his care. YESY
--- NOTE | 2016-11-10 14:37 | Critical Care Consultation ---
Critical Care Consultation Date of Consultation: Nov 10, 2016. Attending Physician: Yang Brown D.O. History of Present Illness Dear Dr. Nydia Busby: Thank you for your kind referral of Mr. Morrell to ICU service. this is 81 yo gentleman with a hx of , s/p AVR with bioprosthetic valve on 10/25 at [facility], the pt developed new onset afib/ aflutter and was started on Lopressor and Eliquis , he could not tolerate Lopressor due to NV and stopped them 5 days ago,. the pt presented to the Ed with increasing fatigue and lack of appetite, he was found to be in a flutter with RVR. responded partially to Dilt and was taken to the OR for MÓNICA and DC cardioversion , the MÓNICA prob could not pass the esophagus and noted to drop his blood pressure requiring IVF, the pt transferred to the ICU for further treatment. In the ICU, the pt fully awake, following commands. CC . sore throat, lack of appetite, no chest pain and son , no NV. he was seen by Dr Stafford from Cardiology and started on Amiodarone drip. and given Eliquis. the rhythm was a flutter for sure. Past Medical/Surgical History As , s/p AVR with bioprosthetic valve . BPH. Family History Patient reports no known family medical history. Social History Smoking Status: Never Smoker Marital Status: Occupation Status: retired Allergies Coded Allergies: Metoprolol (Verified Adverse Reaction, Mild, GI SYMPTOMS, 11/09/16) nausea Home Medications Scheduled Aspirin (Aspir-81), 1 TAB PO BID Calcium/Vitamin D (Os-Gagan 500 Plus D), 1 TAB PO DAILY Cholecalciferol (Vitamin D3), 1 CAP PO DAILY Furosemide (Lasix), 20 MG PO DAILY Metoprolol Tartrate (Lopressor), 25 MG PO BID Multivitamin (Multivitamin), 1 TAB PO QPM Tamsulosin Hcl (Flomax), 0.4 MG PO PM Current Inpatient Medications Current Inpatient Medications Medications (Trade) Dose Ordered Sig/Rubens Route Start Time Stop Time Status Last Admin Dose Admin Diltiazem HCl/ Dextrose (Cardizem Inj/D5 100ml) 125 ml @ 0 mls/hr Q0M PRN IV 11/09/16 13:30 12/09/16 13:29 11/10/16 01:45 5 MLS/HR Acetaminophen (Tylenol Tab) 650 mg Q4H PRN PO 11/09/16 15:00 12/09/16 14:59 11/10/16 05:35 650 MG Al Hydrox/Mg Hydrox/Simethicone (Maalox Max Susp) 15 ml Q4H PRN PO 11/09/16 15:00 12/09/16 14:59 Magnesium Hydroxide (Milk Of Magnesia Susp) 30 ml Q12H PRN PO 11/09/16 15:00 12/09/16 14:59 Ondansetron HCl (Zofran Inj) 4 mg Q6H PRN IV 11/09/16 15:00 12/09/16 14:59 Polyethylene (Miralax Powder Packet) 17 gm DAILY PRN PO 11/09/16 15:00 12/09/16 14:59 Calcium/Vitamin D (Caltrate Plus Tab) 1 tab DAILY PO 11/10/16 09:00 12/10/16 08:59 11/10/16 13:00 1 TAB Furosemide (Lasix Tab) 20 mg DAILY PO 11/10/16 09:00 12/10/16 08:59 Multivitamins (Multivitamin Tab) 1 tab QPM PO 11/09/16 21:00 12/09/16 20:59 Tamsulosin HCl (Flomax Cap) 0.4 mg PM PO 11/09/16 21:00 12/09/16 20:59 11/09/16 20:28 0.4 MG Apixaban (Eliquis Tab) 5 mg BID PO 11/09/16 21:00 12/09/16 20:59 Future hold 11/10/16 09:21 5 MG Nitroglycerin (Nitroglycerin 2% Oint) 1 inch Q6 EXT 11/10/16 06:00 12/10/16 05:59 11/10/16 13:22 1 INCH Nitroglycerin (Nitrostat Tab) 0.4 mg UD PRN SL 11/10/16 07:30 12/10/16 07:29 Morphine Sulfate (MoRPHine SULFATE INJ) 2 mg Q30M PRN IV 11/10/16 07:30 11/24/16 07:29 Ioversol 100 ml 100 ml UD PRN IV 11/10/16 11:30 11/14/16 11:29 Amiodarone HCL/ Dextrose (Nexterone / D5w) 200 ml @ 16.7 mls/hr [id number] IV 11/10/16 12:00 12/10/16 11:59 11/10/16 12:59 16.7 MLS/HR Review of Systems Respiratory: + shortness of breath Cardiovascular: + problem reported (no chest pain) Musculoskeletal: + problem reported (leg edema 2+) Physical Exam Date Time Temp Pulse Resp B/P Pulse Ox O2 Delivery O2 Flow Rate FiO2 11/10/16 13:35 99 Nasal Cannula 2.0 11/10/16 13:00 103 26 118/72 95 Nasal Cannula 2.0 11/10/16 12:09 37.0 115 28 102/81 99 Nasal Cannula 2.0 11/10/16 11:40 115 16 118/56 92 Nasal Cannula 4 11/10/16 11:25 112 16 120/58 92 Nasal Cannula 4 11/10/16 11:10 110 16 133/45 92 Nasal Cannula 4 11/10/16 10:55 111 16 99/61 92 Nasal Cannula 4 11/10/16 10:35 130 16 97/76 95 Nasal Cannula 4 11/10/16 10:31 101 16 88/61 99 Nasal Cannula 4 11/10/16 10:26 82 16 88/50 99 Nasal Cannula 4 11/10/16 10:21 92 16 80/44 99 Nasal Cannula 4 11/10/16 10:16 115 16 61/45 99 Nasal Cannula 4 11/10/16 10:12 118 16 82/52 99 Nasal Cannula 4 11/10/16 10:07 129 16 113/64 99 Nasal Cannula 4 11/10/16 08:00 98 Nasal Cannula 2.0 11/10/16 08:00 36.4 137 24 109/88 98 Nasal Cannula 2.0 11/10/16 05:16 106 24 104/79 98 Nasal Cannula 2.0 11/10/16 04:04 36.9 115 24 135/69 92 Room Air 11/10/16 04:01 Room Air 11/10/16 03:47 36.9 115 24 135/69 92 Room Air 11/10/16 03:15 126 11/10/16 00:56 94 11/10/16 00:02 Room Air 11/09/16 23:42 36.7 97 22 115/71 94 Room Air 11/09/16 22:26 109 11/09/16 22:12 125 11/09/16 21:36 139 136/87 11/09/16 20:35 139 129/91 11/09/16 20:32 36.7 140 20 131/81 99 Room Air 11/09/16 20:05 Room Air 11/09/16 18:24 37.0 144 23 136/81 97 Room Air 11/09/16 15:57 120 16 116/76 100 Room Air 11/09/16 15:31 148 24 105/71 99 Room Air 11/09/16 14:39 124 28 104/71 93 Room Air General Appearance: WD/WN Head: normocephalic Eyes: normal inspection ENT: normal ENT inspection Neck: + JVD, + pertinent finding Respiratory/Chest: + crackles Cardiovascular: + bradycardia, + tachycardia, + irregularly irregular Abdomen/GI: normal bowel sounds Extremities/Musculoskelatal: + swelling Laboratory Results Last 24 Hours Test 11/09/16 21:00 11/09/16 21:10 11/10/16 05:00 11/10/16 05:23 Creatine Kinase MB Ratio Creatine Kinase MB 1.7 ng/ml 1.7 ng/ml Troponin I < 0.015 ng/ml < 0.015 ng/ml White Blood Count 9.71 K/uL Red Blood Count 3.03 M/uL Hemoglobin 9.8 g/dL Hematocrit 28.3 % Mean Corpuscular Volume 93.4 fL Mean Corpuscular Hemoglobin 32.3 pg Mean Corpuscular Hemoglobin Concent 34.6 g/dl RDW Standard Deviation 51.2 fL RDW Coefficient of Variation 15.2 % Platelet Count 214 K/uL Mean Platelet Volume 8.6 fL Sodium Level 138 mmol/L Potassium Level 4.1 mmol/L Chloride Level 102 mmol/L Carbon Dioxide Level 26 mmol/L Anion Gap 10.0 mmol/L Blood Urea Nitrogen 17 mg/dl Creatinine 1.10 mg/dl Est Creatinine Clear Calc Drug Dose 57.7 ml/min Estimated GFR () 71.6 Estimated GFR (Non- 61.8 BUN/Creatinine Ratio 15.8 Random Glucose 184 mg/dl Calcium Level 8.2 mg/dl Magnesium Level 2.1 mg/dl Thyroid Stimulating Hormone (TSH) 13.100 uIu/ml Test 11/10/16 12:34 White Blood Count 14.58 K/uL Red Blood Count 3.04 M/uL Hemoglobin 9.8 g/dL Hematocrit 28.5 % Mean Corpuscular Volume 93.8 fL Mean Corpuscular Hemoglobin 32.2 pg Mean Corpuscular Hemoglobin Concent 34.4 g/dl RDW Standard Deviation 52.3 fL RDW Coefficient of Variation 15.3 % Platelet Count 207 K/uL Mean Platelet Volume 8.8 fL Prothrombin Time 13.1 SECONDS Prothromb Time International Ratio 1.2 Assessment & Plan #1 , post AVR, Bioprosthetic valve 2 weeks ago. #2 new onset afib/ a flutter. with RVR. #3 hypotension likely sedation related. #4 esophageal spasm vs stricture given his recent MÓNICA done at another facility which can be address later once it is safe to do EGD. #5 CHF , fluid overload, a flutter with RVR, crackles and positive JVP. CXR with PVC. Plan: #1 Lasix 40 mg Iv given . #2 agree with amiodarone , will provide a loading dose, BP tolerated it. #[address] Stafford input. #4 Eliquis, I will stop Lovenox as the pt was already on Eliquis previously. #5 Oral intake, noted the pt is unable to tolerate solids, will change to liquids, GI consult eval for esophageal stricture when appropriate. #6 daily labs. #7 CXR reviewed. discussed in details with the staff and the family and the pt. CCT 60 min.
[2016-11-10] MEDS ORDERED: DILTIAZEM HCL 5 MG/ML 5 ML VIAL IV SCH (15:20)
--- NOTE | 2016-11-10 16:19 | Family Medicine Progress Note ---
Progress Note Date of Service Nov 10, 2016. Subjective Pt evaluation today including: conversation w/ patient, physical exam Pain: 110 Voiding: no voiding problems Patient was experiencing chest pain this morning that was midsternal. The chest pain radiating to the mid back. It was a 7/10,. It improved with sitting forward and did not improve with NTG. He did have some improvement with 2 mg of morphine. He is currently comfortable He was brought to the chemical laboratory assistant this morning to have a MÓNICA and cardioversion, The MÓNICA was unable to be completed and a regular echo was completed. He was found to have a profoundly hypokinetic right ventricle which is changed from a recent echo 2 weeks ago. When reviewing that echo it was also noted that the pressure at that time was 46 mm Hg. It was decided because of the patient recent change that he will be transferred to ICU for observation and attempt to rate control. Constitutional: No fever Eyes: No worsening of vision ENT: No hearing loss Respiratory: + dyspnea on exertion, + shortness of breath, No cough, No sputum, No wheezing Cardiovascular: + chest pain Abdomen: No constipation, No diarrhea, No nausea, No pain, No vomiting Musculoskeletal: + swelling (BL R>L), No joint pain, No muscle pain Male : No dysuria Neurologic: No balance problems, No memory loss, No weakness Psychiatric: No anxiety, No depression symptoms Endo: No fatigue Skin: No rash Medications Medications Administered Medications (Trade) Dose Ordered Sig/Rubens Route Start Time Stop Time Status Last Admin Dose Admin Diltiazem HCl (Cardizem Inj) 20 mg NOW STAT IV 11/09/16 13:10 11/09/16 13:14 DC 11/09/16 13:27 20 MG Diltiazem HCl 30 mg 30 mg NOW STAT IV 11/09/16 13:10 11/09/16 13:14 DC 11/09/16 13:52 30 MG Sodium Chloride (Nss 500ml) 500 ml @ 999 mls/hr Q31M STAT IV 11/09/16 13:14 11/09/16 13:44 DC 11/09/16 13:31 999 MLS/HR Metoclopramide HCl 10 mg 10 mg NOW STAT IV 11/09/16 13:14 11/09/16 13:15 DC 11/09/16 13:26 10 MG Diltiazem HCl/ Dextrose (Cardizem Inj/D5 100ml) 125 ml @ 0 mls/hr Q0M PRN IV 11/09/16 13:30 11/10/16 14:17 DC 11/10/16 01:45 5 MLS/HR Acetaminophen (Tylenol Tab) 650 mg Q4H PRN PO 11/09/16 15:00 12/09/16 14:59 11/10/16 05:35 650 MG Aspirin (Ecotrin Tab) 81 mg BID PO 11/09/16 21:00 11/10/16 10:45 DC 11/09/16 20:28 81 MG Calcium/Vitamin D (Caltrate Plus Tab) 1 tab DAILY PO 11/10/16 09:00 12/10/16 08:59 11/10/16 13:00 1 TAB Tamsulosin HCl 0.4 mg 0.4 mg PM PO 11/09/16 21:00 12/09/16 20:59 11/09/16 20:28 0.4 MG Sodium Chloride (Nss 1000ml) 1,000 ml @ 100 mls/hr Q10H ONCE IV 11/09/16 15:30 11/10/16 01:29 DC 11/09/16 20:25 100 MLS/HR Apixaban 5 mg 5 mg BID PO 11/09/16 21:00 12/09/16 20:59 Future hold 11/10/16 09:21 5 MG Amiodarone HCL/ Dextrose 100 ml @ 600 mls/hr NOW ONCE IV 11/09/16 16:00 11/09/16 16:09 DC 11/09/16 16:58 600 MLS/HR Amiodarone HCL/ Dextrose 200 ml @ 33.3 mls/hr Q6H1M IV 11/09/16 16:10 11/09/16 22:10 DC 11/09/16 16:59 33.3 MLS/HR Amiodarone HCL/ Dextrose 200 ml @ 16.7 mls/hr [id number] IV 11/09/16 22:10 11/10/16 10:45 DC 11/09/16 22:50 16.7 MLS/HR Diltiazem HCl 10 mg/Syringe 2 ml @ 2 mls/min TODAY@2030 IV 11/09/16 20:30 11/09/16 21:00 DC 11/09/16 20:33 2 MLS/MIN Amiodarone HCL/ Dextrose (Nexterone / D5w) 100 ml @ 600 mls/hr 2300 IV 11/09/16 23:00 11/09/16 23:09 DC 11/09/16 23:29 600 MLS/HR Nitroglycerin (Nitroglycerin 2% Oint) 1 inch Q6 EXT 11/10/16 06:00 12/10/16 05:59 11/10/16 13:22 1 INCH Morphine Sulfate 2 mg 2 mg STK-MED ONCE .ROUTE 11/10/16 07:31 11/10/16 07:33 DC 11/10/16 07:36 2 MG Amiodarone HCL/ Dextrose (Nexterone / D5w) 200 ml @ 16.7 mls/hr [id number] IV 11/10/16 12:00 12/10/16 11:59 11/10/16 12:59 16.7 MLS/HR Amiodarone HCL/ Dextrose (Nexterone / D5w) 150 mg STK-MED ONCE .ROUTE 11/10/16 12:42 11/10/16 12:43 DC 11/10/16 12:46 150 MG Furosemide (Lasix Inj) 40 mg NOW STAT IV 11/10/16 13:20 11/10/16 13:21 DC 11/10/16 14:06 40 MG Amiodarone HCL/ Dextrose (Nexterone / D5w) 150 mg STK-MED ONCE .ROUTE 11/10/16 14:39 11/10/16 14:41 DC 11/10/16 14:53 150 MG Diltiazem HCl 20 mg 20 mg TODAY@1520 IV 11/10/16 15:20 11/10/16 15:21 DC 11/10/16 15:20 20 MG Diltiazem HCl/ Dextrose (Cardizem Inj/D5 100ml) 125 ml @ 0 mls/hr Q0M PRN IV 11/10/16 15:30 12/10/16 15:29 11/10/16 16:00 10 MLS/HR Objective Vital Signs Date Time Temp Pulse Resp B/P Pulse Ox O2 Delivery O2 Flow Rate FiO2 11/10/16 14:00 127 25 146/68 94 Nasal Cannula 2.0 11/10/16 13:35 99 Nasal Cannula 2.0 11/10/16 13:30 125 21 138/88 98 Nasal Cannula 2.0 11/10/16 13:00 103 26 118/72 95 Nasal Cannula 2.0 11/10/16 12:09 37.0 115 28 102/81 99 Nasal Cannula 2.0 11/10/16 11:40 115 16 118/56 92 Nasal Cannula 4 11/10/16 11:25 112 16 120/58 92 Nasal Cannula 4 11/10/16 11:10 110 16 133/45 92 Nasal Cannula 4 11/10/16 10:55 111 16 99/61 92 Nasal Cannula 4 11/10/16 10:35 130 16 97/76 95 Nasal Cannula 4 11/10/16 10:31 101 16 88/61 99 Nasal Cannula 4 11/10/16 10:26 82 16 88/50 99 Nasal Cannula 4 11/10/16 10:21 92 16 80/44 99 Nasal Cannula 4 11/10/16 10:16 115 16 61/45 99 Nasal Cannula 4 11/10/16 10:12 118 16 82/52 99 Nasal Cannula 4 11/10/16 10:07 129 16 113/64 99 Nasal Cannula 4 11/10/16 08:00 98 Nasal Cannula 2.0 11/10/16 08:00 36.4 137 24 109/88 98 Nasal Cannula 2.0 11/10/16 05:16 106 24 104/79 98 Nasal Cannula 2.0 11/10/16 04:04 36.9 115 24 135/69 92 Room Air 11/10/16 04:01 Room Air 11/10/16 03:47 36.9 115 24 135/69 92 Room Air 11/10/16 03:15 126 11/10/16 00:56 94 11/10/16 00:02 Room Air 11/09/16 23:42 36.7 97 22 115/71 94 Room Air 11/09/16 22:26 109 11/09/16 22:12 125 11/09/16 21:36 139 136/87 11/09/16 20:35 139 129/91 11/09/16 20:32 36.7 140 20 131/81 99 Room Air 11/09/16 20:05 Room Air 11/09/16 18:24 37.0 144 23 136/81 97 Room Air Physical Exam General Appearance: WD/WN, no apparent distress Eyes: normal inspection ENT: normal ENT inspection Neck: supple Respiratory/Chest: + decreased breath sounds, + crackles (bases) Cardiovascular: + tachycardia, + irregularly irregular Abdomen: normal bowel sounds, non tender, soft Extremities: non-tender, no calf tenderness, + pedal edema (+4 bilat R>L) Neurologic/Psychiatric: alert, normal mood/affect, oriented x 3 Skin: normal color, warm/dry, no rash Lymphatic: no adenopathy Laboratory Results Results Past 24 Hours Test 11/09/16 21:00 11/09/16 21:10 11/10/16 05:00 11/10/16 05:23 Range/Units Creatine Kinase MB Ratio 0-3.0 Creatine Kinase MB 1.7 1.7 0.5-3.6 ng/ml Troponin I < 0.015 < 0.015 0-0.045 ng/ml White Blood Count 9.71 4.8-10.8 K/uL Red Blood Count 3.03 4.7-6.1 M/uL Hemoglobin 9.8 14.0-18.0 g/dL Hematocrit 28.3 42-52 % Mean Corpuscular Volume 93.4 80-100 fL Mean Corpuscular Hemoglobin 32.3 25-34 pg Mean Corpuscular Hemoglobin Concent 34.6 32-36 g/dl RDW Standard Deviation 51.2 36.4-46.3 fL RDW Coefficient of Variation 15.2 11.5-14.5 % Platelet Count 214 130-400 K/uL Mean Platelet Volume 8.6 7.4-10.4 fL Sodium Level 138 136-145 mmol/L Potassium Level 4.1 3.5-5.1 mmol/L Chloride Level 102 98-107 mmol/L Carbon Dioxide Level 26 21-32 mmol/L Anion Gap 10.0 3-11 mmol/L Blood Urea Nitrogen 17 7-18 mg/dl Creatinine 1.10 0.60-1.40 mg/dl Est Creatinine Clear Calc Drug Dose 57.7 ml/min Estimated GFR () 71.6 Estimated GFR (Non- 61.8 BUN/Creatinine Ratio 15.8 10-20 Random Glucose 184 70-99 mg/dl Calcium Level 8.2 8.5-10.1 mg/dl Magnesium Level 2.1 1.8-2.4 mg/dl Thyroid Stimulating Hormone (TSH) 13.100 0.300-4.500 uIu/ml Test 11/10/16 12:34 Range/Units White Blood Count 14.58 4.8-10.8 K/uL Red Blood Count 3.04 4.7-6.1 M/uL Hemoglobin 9.8 14.0-18.0 g/dL Hematocrit 28.5 42-52 % Mean Corpuscular Volume 93.8 80-100 fL Mean Corpuscular Hemoglobin 32.2 25-34 pg Mean Corpuscular Hemoglobin Concent 34.4 32-36 g/dl RDW Standard Deviation 52.3 36.4-46.3 fL RDW Coefficient of Variation 15.3 11.5-14.5 % Platelet Count 207 130-400 K/uL Mean Platelet Volume 8.8 7.4-10.4 fL Prothrombin Time 13.1 9.0-12.0 SECONDS Prothromb Time International Ratio 1.2 0.9-1.1 Microbiology Results 11/10/16 MRSA DNA Surveillance Screen - Final, Complete Specimen Negative for MRSA by DNA Probe Assessment and Plan 81 y/o male, with PMHx of aortic stenosis s/p porcine valve replacement on at [facility] who presented to the ED with tachycardia. He was placed on Amio and Dilt with difficulty with rate control of his a flutter. It was decided to attempt a MÓNICA and cardioversion however the MÓNICA was unable to be completed. An echo noted a hypokinetic right side of the heart which is new from an echo which was done 2 weeks prior. He was then transferred for ICU and ongoing evaluation. A. Flutter on EKG: - transfer to ICU - Cardizem and Amiodarone drip - try to avoid metoprolol because of allergy - Continue ASA 81 mg PO BID - Consult cardiology, - appreciate input - TSH, Mg - CT to r/o dissection- negative only postop changes noted BPH: - Continue Flomax 0.4 mg PO QPM Chronic lower extremity edema: - Patient states swelling is currently at baseline - Continue Lasix 20 mg PO daily GI Prophylaxis: - Maalox PRN - IV Zofran PRN - Colace and/or Milk of Mag PRN DVT prophylaxis: - Eliquis 5 mg PO BID per cardiology - MARISA and SCDs Code Status: - LEVEL I, FULL Dispo: - Lives with at home. Has home health 2x per week. May be a candidate for transfer to [facility]. Resident Physician Supervision Note: I interviewed and examined the patient. Discussed with Dr. Vargas and agree with findings and plan as documented in the note. Any exceptions or clarifications are listed here: None Documented By: Yang Brown feeling fine. notes that if he didn't know his HR was up, he wouldn't really be feeling any different. notes that he was asymptomatic and home health nurse noted fast irregular HR on routine vitals - sending to ER after that. chest pain improving a lot (down to about a 2). no sob. does have a cough but relates it's ongoing. no palpitations. d/w cardiology. [facility] charts reviewed. moderate/severe pulmonary HTN vitals noted, nad, HR irreg irreg tachycardia, lungs faint rales, but good air entry afib/flutter w RVR - chest pain likely due to rate (rates have at times exceeded his MPHR for age) - control rate -- if rate can't be controlled, then cardiovert. amio, dilt. can't tolerate metoprolol. anticoagulated w apixaban chest pain - likely from above RV dysfunction - probably due to pulmonary HTN. nothing appearing c/w PE - already being anticoagulated as well (may consider CT for completeness but certainly not warranted clinically at this time, especially since already being anticoagulated). nothing appearing c/w RVMI. does have some pulmonary edema but doesn't seem to be enough for acute R CHF otherwise as above Continued [facility] stay due to: multiple IV medications needed Discharge planning: uncertain
[2016-11-10] MEDS: INSULIN ASPART 100 UNITS/ML 3 ML PEN SC SCH (21:15)
[2016-11-10] MEDS: MULTIVITAMIN TAB PO SCH (21:34)
[2016-11-10] MEDS: TAMSULOSIN HCL 0.4 MG CAP PO SCH (21:34)
[2016-11-11] VITALS (36 sets, daily range): BP systolic 77–144; BP diastolic 40–92; PULSE 76–129; TEMP 36.5–36.7; O2SAT 92–99; Ht 177.8 cm; Wt 93.6 kg
[2016-11-11] MEDS: AMIODARONE / D5W 200 ML IV SCH ×2 (00:02→12:06)
[2016-11-11] MEDS: NITROGLYCERIN OINT 2% 1GM PACKET EXT SCH ×4 (00:10→17:16)
[2016-11-11] MEDS: DILTIAZEM HCL INJ 125 MG in DEXTROSE 5% 100ML IV PRN (04:13)
[2016-11-11] MEDS: LEVOTHYROXINE 50 MCG TAB PO SCH (05:33)
--- NOTE | 2016-11-11 05:39 | Clinical Documentation Query ---
YANA Valdez : CLINICAL DOCUMENTATION QUERY Patient is a an 81 year old male admitted about two weeks postoperatively from porcine aortic valve replacement for new onset of atrial flutter. Additionally, this is in the setting of non-compliance with prescribed beta blockade regimen. Please clarify as able and as clinically appropriate. Thank you. In your clinical opinion is this patient being managed for: ( ) Postoperative atrial flutter, a complication of bioprosthetic AVR ( ) Atrial flutter due to non-compliance with prescribed beta blockade regimen ( ) Other explanation of clinical findings (Please Explain) ( ) Unable to determine (Please Define) ( ) Need to Discuss ( ) Not Agree The medical record reflects the following clinical findings, treatment, and risk factors. Clinical Indicators: As above Treatment: Cardizem infusion, IV Amiodarone, ASA, cardiology consultation, possible MÓNICA/CV, IVF, serial labs Risk Factors: AVR and non-compliance with beta anatoliy postoperatively. Please clarify and document your clinical opinion in the progress notes and discharge summary. Terms such as "probable", "suspected", "likely", "questionable", "possible", or "still to be ruled out" are acceptable. IF IN AGREEMENT, YOU MUST DOCUMENT ABOVE DIAGNOSTIC STATEMENT IN DAILY PROGRESS NOTES AND DISCHARGE SUMMARY. This document is not part of the patient's record. Thank You, Simba William, IVETTE [phone]
[2016-11-11 06:08] LABS: HEMATOCRIT 29.9 % (42-52); MEAN CELL VOLUME 93.7 fL (80-100); MEAN CORPUSCULAR HEMOGLOBIN 31.7 pg (25-34); MEAN CORPUSCULAR HGB CONC 33.8 g/dl (32-36); MEAN PLATELET VOLUME 9.3 fL (7.4-10.4); PLATELET COUNT 236 K/uL (130-400); RED BLOOD COUNT 3.19 M/uL (4.7-6.1); WHITE BLOOD COUNT 12.67 K/uL (4.8-10.8)
[2016-11-11] MEDS: INSULIN ASPART 100 UNITS/ML 3 ML PEN SC SCH ×4 (06:22→21:00)
[2016-11-11 06:40] LABS: BUN/CREATININE RATIO 15.4 (10-20); CALCIUM 8.4 mg/dl (8.5-10.1); CREATININE 1.3 mg/dl (0.60-1.40); POTASSIUM 4.1 mmol/L (3.5-5.1)
[2016-11-11 07:18] LABS: ESTIMATED AVERAGE GLUCOSE 146 mg/dl; HA1C FLAG Normal (Normal)
[2016-11-11] MEDS: CALCIUM 600MG + VIT D 400 IU TAB PO SCH (08:38)
--- NOTE | 2016-11-11 09:20 | Cardiology Follow-Up ---
Subjective General Date of Service: Nov 11, 2016. Pt evaluation today including: conversation w/ patient, chart review, lab review, review of studies, conversation w/ government operations consultant History of Present Illness The patient is a 81 year old male Allergies Coded Allergies: Metoprolol (Verified Adverse Reaction, Mild, GI SYMPTOMS, 11/09/16) nausea Social History Smoking Status: Never Smoker Hx Tobacco Use In Past Year?: No Hx Alcohol Use - Type And Amou: No Hx Substance Use - Type And Am: No Review of Systems Respiratory: + dyspnea at rest, + shortness of breath, No cough Cardiac: + edema, No chest pain, No palpitations Physical Exam Vital Signs Last Vital Signs Documentation Date Time Temp Pulse Resp B/P Pulse Ox O2 Delivery O2 Flow Rate FiO2 11/11/16 06:02 101 22 101/79 96 11/11/16 04:00 Nasal Cannula 3.0 11/10/16 23:58 36.8 Physical Exam Constitutional: Level of Distress: mild distress Lungs: Auscultation: no wheezing, no rales/crackles, no rhonchi, decreased breath sounds (bases right >left) Cardiovascular: Heart Auscultation: no murmurs, no rubs, tachycardia Abdomen: Bowel Sounds: normal Inspection & Palpation: soft, non-distended, no tenderness, guarding & rebound Extremities: edema (severe edema of the right with mild to moderate edema of right) Assessment and Plan Assessment and Plan IMPRESSION: 1. New onset atrial flutter, status post bioprosthetic aortic valve replacements. 2. INTOLERANCE TO METOPROLOL, DUE TO SEVERE NAUSEA AND VOMITING. 3. Status post 25-mm bioprosthetic aortic valve replacement on 10/25/2016. 4. Mild left main and LAD disease preoperatively. 5. Chronic lower extremity edema on the right secondary to lymphedema. 6. Acute CHF secondary to Atrial Flutter 7. RV dysfunction new since sx Rate uncontrolled: Discussed with critical care: Consider Flutter ablation at [facility] given concern for hypotension in face of his RV dysfunction and success rate of 97% to permanently eliminate arrhythmia or combined EGD and MÓNICA in the OR with need for blood pressure support during the procedure and then cardioversion while on Apixaban SBP low and only able to use Amio with little affect on HR Concern over progressive CHF with HR uncontrolled Mild sore throat this am but no neck or throat pain. No evidence of perforation on CT chest yesterday and no dissection or pericardial effusion Laboratory Results Last 24 Hours Test 11/10/16 12:34 11/10/16 16:37 11/10/16 16:39 11/10/16 21:09 White Blood Count 14.58 K/uL Red Blood Count 3.04 M/uL Hemoglobin 9.8 g/dL Hematocrit 28.5 % Mean Corpuscular Volume 93.8 fL Mean Corpuscular Hemoglobin 32.2 pg Mean Corpuscular Hemoglobin Concent 34.4 g/dl RDW Standard Deviation 52.3 fL RDW Coefficient of Variation 15.3 % Platelet Count 207 K/uL Mean Platelet Volume 8.8 fL Prothrombin Time 13.1 SECONDS Prothromb Time International Ratio 1.2 Bedside Glucose 378 mg/dl 354 mg/dl 386 mg/dl Test 11/10/16 23:39 11/11/16 05:48 Bedside Glucose 383 mg/dl White Blood Count 12.67 K/uL Red Blood Count 3.19 M/uL Hemoglobin 10.1 g/dL Hematocrit 29.9 % Mean Corpuscular Volume 93.7 fL Mean Corpuscular Hemoglobin 31.7 pg Mean Corpuscular Hemoglobin Concent 33.8 g/dl RDW Standard Deviation 51.7 fL RDW Coefficient of Variation 15.2 % Platelet Count 236 K/uL Mean Platelet Volume 9.3 fL Sodium Level 135 mmol/L Potassium Level 4.1 mmol/L Chloride Level 99 mmol/L Carbon Dioxide Level 26 mmol/L Anion Gap 10.0 mmol/L Blood Urea Nitrogen 20 mg/dl Creatinine 1.30 mg/dl Est Creatinine Clear Calc Drug Dose 49.4 ml/min Estimated GFR () 58.5 Estimated GFR (Non- 50.5 BUN/Creatinine Ratio 15.4 Random Glucose 204 mg/dl Calcium Level 8.4 mg/dl
--- NOTE | 2016-11-11 10:00 | Critical Care Progress Note ---
Critical Care Progress Note Date of Service Nov 11, 2016. Attending Dr. Diana Subjective no events overnight, converted to NSR , still on amiodarone drip. Objective asymptomatic, but has not been ambulatory, denies sob and no chest pain. no dizziness, Assessment & Plan refractory a flutter. CHF. , a/p AVR, bioprosthetic. Plan: 1- continue amiodarone drip. 2- reverse NPO. 3- oral intake. 4- resume Eliquis. 5- discussed with Dr. Stafford and Dr. Brown in details, plan to transfer the pt to [facility] for ablation. 6- agree with GI consult, esophageal eval needed for dysphagia and narrow passage. 7- discussed in details with the pt and his , with the staff on rounds. CCT 35 min. Data Medications: Current Inpatient Medications Medications (Trade) Dose Ordered Sig/Rubens Route Start Time Stop Time Status Last Admin Dose Admin Acetaminophen (Tylenol Tab) 650 mg Q4H PRN PO 11/09/16 15:00 12/09/16 14:59 11/10/16 05:35 650 MG Al Hydrox/Mg Hydrox/Simethicone (Maalox Max Susp) 15 ml Q4H PRN PO 11/09/16 15:00 12/09/16 14:59 Magnesium Hydroxide (Milk Of Magnesia Susp) 30 ml Q12H PRN PO 11/09/16 15:00 12/09/16 14:59 Ondansetron HCl (Zofran Inj) 4 mg Q6H PRN IV 11/09/16 15:00 12/09/16 14:59 Polyethylene (Miralax Powder Packet) 17 gm DAILY PRN PO 11/09/16 15:00 12/09/16 14:59 Calcium/Vitamin D (Caltrate Plus Tab) 1 tab DAILY PO 11/10/16 09:00 12/10/16 08:59 11/10/16 13:00 1 TAB Furosemide (Lasix Tab) 20 mg DAILY PO 11/10/16 09:00 12/10/16 08:59 Multivitamins (Multivitamin Tab) 1 tab QPM PO 11/09/16 21:00 12/09/16 20:59 11/10/16 21:34 1 TAB Tamsulosin HCl (Flomax Cap) 0.4 mg PM PO 11/09/16 21:00 12/09/16 20:59 11/10/16 21:34 0.4 MG Apixaban (Eliquis Tab) 5 mg BID PO 11/09/16 21:00 12/09/16 20:59 Future hold 11/10/16 21:34 5 MG Nitroglycerin (Nitroglycerin 2% Oint) 1 inch Q6 EXT 11/10/16 06:00 12/10/16 05:59 11/11/16 00:10 1 INCH Nitroglycerin (Nitrostat Tab) 0.4 mg UD PRN SL 11/10/16 07:30 12/10/16 07:29 Morphine Sulfate (MoRPHine SULFATE INJ) 2 mg Q30M PRN IV 11/10/16 07:30 11/24/16 07:29 Ioversol 100 ml 100 ml UD PRN IV 11/10/16 11:30 11/14/16 11:29 Amiodarone HCL/ Dextrose (Nexterone / D5w) 200 ml @ 16.7 mls/hr [id number] IV 11/10/16 12:00 12/10/16 11:59 11/11/16 00:02 16.7 MLS/HR Levothyroxine Sodium 50 mcg 50 mcg DAILYBB PO 11/11/16 06:00 12/11/16 05:59 11/11/16 05:33 50 MCG Diltiazem HCl/ Dextrose (Cardizem Inj/D5 100ml) 125 ml @ 0 mls/hr Q0M PRN IV 11/10/16 15:30 12/10/16 15:29 11/11/16 04:13 15 MLS/HR Insulin Aspart (novoLOG ASPART) SLIDING SCALE G... ACHS SC 11/10/16 21:00 12/10/16 20:59 11/11/16 06:22 1 UNITS Enteral Nutritional Formula (Boost) 1 can TIDM PO 11/11/16 11:30 12/11/16 11:29 I & O: 24-Hour Column 11/11/16 08:00 Intake Total 1801 ml Output Total 1075 ml Balance 726 ml Vital Signs: Date Time Temp Pulse Resp B/P Pulse Ox O2 Delivery O2 Flow Rate FiO2 11/11/16 08:00 Nasal Cannula 2.0 11/11/16 06:02 101 22 101/79 96 11/11/16 04:00 126 12 122/75 94 Nasal Cannula 3.0 11/11/16 04:00 Nasal Cannula 2.0 11/11/16 01:58 128 28 122/77 95 Nasal Cannula 3.0 11/11/16 00:59 85 3 97/76 96 Nasal Cannula 3.0 11/11/16 00:01 Nasal Cannula 2.0 11/10/16 23:58 36.8 128 20 122/81 93 Nasal Cannula 2.0 11/10/16 22:59 126 21 124/73 95 Nasal Cannula 2.0 11/10/16 22:16 82 19 108/64 95 Nasal Cannula 2.0 11/10/16 20:59 86 16 110/64 93 Nasal Cannula 2.0 11/10/16 20:00 Nasal Cannula 2.0 11/10/16 19:59 36.8 84 23 132/59 95 Nasal Cannula 2.0 11/10/16 18:00 114 23 120/85 90 Nasal Cannula 2.0 11/10/16 16:00 Nasal Cannula 2.0 11/10/16 16:00 36.5 107 15 131/80 94 Nasal Cannula 2.0 11/10/16 14:00 127 25 146/68 94 Nasal Cannula 2.0 11/10/16 13:35 99 Nasal Cannula 2.0 11/10/16 13:30 125 21 138/88 98 Nasal Cannula 2.0 11/10/16 13:00 103 26 118/72 95 Nasal Cannula 2.0 11/10/16 12:09 37.0 115 28 102/81 99 Nasal Cannula 2.0 11/10/16 11:40 115 16 118/56 92 Nasal Cannula 4 11/10/16 11:25 112 16 120/58 92 Nasal Cannula 4 11/10/16 11:10 110 16 133/45 92 Nasal Cannula 4 11/10/16 10:55 111 16 99/61 92 Nasal Cannula 4 11/10/16 10:35 130 16 97/76 95 Nasal Cannula 4 11/10/16 10:31 101 16 88/61 99 Nasal Cannula 4 11/10/16 10:26 82 16 88/50 99 Nasal Cannula 4 11/10/16 10:21 92 16 80/44 99 Nasal Cannula 4 11/10/16 10:16 115 16 61/45 99 Nasal Cannula 4 11/10/16 10:12 118 16 82/52 99 Nasal Cannula 4 11/10/16 10:07 129 16 113/64 99 Nasal Cannula 4 S1S2 RRR. Lungs with basilar crackles. abdomen is benign. CC, edema in the ankles. neuro is intact. Laboratory Results: Last 24 Hours Test 11/10/16 12:34 11/10/16 16:37 11/10/16 16:39 11/10/16 21:09 White Blood Count 14.58 K/uL Red Blood Count 3.04 M/uL Hemoglobin 9.8 g/dL Hematocrit 28.5 % Mean Corpuscular Volume 93.8 fL Mean Corpuscular Hemoglobin 32.2 pg Mean Corpuscular Hemoglobin Concent 34.4 g/dl RDW Standard Deviation 52.3 fL RDW Coefficient of Variation 15.3 % Platelet Count 207 K/uL Mean Platelet Volume 8.8 fL Prothrombin Time 13.1 SECONDS Prothromb Time International Ratio 1.2 Bedside Glucose 378 mg/dl 354 mg/dl 386 mg/dl Test 11/10/16 23:39 11/11/16 05:48 Bedside Glucose 383 mg/dl White Blood Count 12.67 K/uL Red Blood Count 3.19 M/uL Hemoglobin 10.1 g/dL Hematocrit 29.9 % Mean Corpuscular Volume 93.7 fL Mean Corpuscular Hemoglobin 31.7 pg Mean Corpuscular Hemoglobin Concent 33.8 g/dl RDW Standard Deviation 51.7 fL RDW Coefficient of Variation 15.2 % Platelet Count 236 K/uL Mean Platelet Volume 9.3 fL Sodium Level 135 mmol/L Potassium Level 4.1 mmol/L Chloride Level 99 mmol/L Carbon Dioxide Level 26 mmol/L Anion Gap 10.0 mmol/L Blood Urea Nitrogen 20 mg/dl Creatinine 1.30 mg/dl Est Creatinine Clear Calc Drug Dose 49.4 ml/min Estimated GFR () 58.5 Estimated GFR (Non- 50.5 BUN/Creatinine Ratio 15.4 Random Glucose 204 mg/dl Calcium Level 8.4 mg/dl
[2016-11-11] MEDS ORDERED: NURSING VERBAL MED ORDER ONE (11:00)
[2016-11-11] MEDS ORDERED: BOOST VANILLA PO SCH ×2 (11:30)
[2016-11-11] MEDS: APIXABAN 2.5 MG TAB PO SCH ×2 (11:59→21:09)
[2016-11-11] MEDS: FUROSEMIDE 20 MG TAB PO SCH (11:59)
[2016-11-11] MEDS: BOOST VANILLA PO SCH ×4 (12:03→16:30)
[2016-11-11] MEDS ORDERED: PHARMACY GLYCEMIC MGMT CONSULT PRN (12:31)
--- NOTE | 2016-11-11 13:25 | Clinical Documentation Query ---
FRANCISCO J Castillo : CLINICAL DOCUMENTATION QUERIES QUERY 1 OF 2 Documentation 11/10 includes CHF, not otherwise specified, in the setting of atrial flutter. Please explicitly specify the type of CHF experienced by your patient as this directly impacts DRG assignment, thereby quantitatively defining the associated severity of illness and risk of mortality. Thank you. In your clinical opinion is this patient being managed for: ( ) Acute systolic CHF ( ) Acute diastolic CHF ( ) Acute combined systolic and diastolic CHF ( ) Other explanation of clinical findings (Please Explain) ( ) Unable to determine (Please Define) ( ) Need to Discuss ( ) Not Agree The medical record reflects the following clinical findings, treatment, and risk factors. Clinical Indicators: As above Treatment: Lasix, cardizem, amiodarone Risk Factors: Recent TAVR, non-compliance with prescribed therapeutic regimen. QUERY 2 OF 2 Patient is a an 81 year old male admitted about two weeks postoperatively from porcine aortic valve replacement for new onset of atrial flutter. Additionally, this is in the setting of non-compliance with prescribed beta blockade regimen. Please clarify as able and as clinically appropriate. Thank you. In your clinical opinion is this patient being managed for: ( ) Postoperative atrial flutter, a complication of bioprosthetic AVR ( ) Atrial flutter due to non-compliance with prescribed beta blockade regimen ( ) Other explanation of clinical findings (Please Explain) ( ) Unable to determine (Please Define) ( ) Need to Discuss ( ) Not Agree The medical record reflects the following clinical findings, treatment, and risk factors. Clinical Indicators: As above Treatment: Cardizem infusion, IV Amiodarone, ASA, cardiology consultation, possible MÓNICA/CV, IVF, serial labs Risk Factors: AVR and non-compliance with beta anatoliy postoperatively. Please clarify and document your clinical opinion in the progress notes and discharge summary. Terms such as "probable", "suspected", "likely", "questionable", "possible", or "still to be ruled out" are acceptable. IF IN AGREEMENT, YOU MUST DOCUMENT ABOVE DIAGNOSTIC STATEMENT IN DAILY PROGRESS NOTES AND DISCHARGE SUMMARY. This document is not part of the patient's record. Thank You, Simba William, RN [phone]
--- NOTE | 2016-11-11 14:06 | Pharmacy Progress Note ---
Glycemic Control Intl Consult Date of Service Nov 11, 2016. Scope Glycemic Pharmacist consulted by Dr Brown on 11/11/16 for glycemic control and to write orders per [facility] inpatient glycemic control protocol Objective Weight (Kilograms): 93.200 Accuchecks BSG (last 24hrs): Test 11/10/16 16:37 11/10/16 16:39 11/10/16 21:09 11/10/16 23:39 Bedside Glucose 378 mg/dl (70-99) 354 mg/dl (70-99) 386 mg/dl (70-99) 383 mg/dl (70-99) Test 11/11/16 05:48 11/11/16 10:59 Random Glucose 204 mg/dl (70-99) Bedside Glucose 349 mg/dl (70-99) Laboratory Data (last 24hrs) Test 11/11/16 05:48 Anion Gap 10.0 mmol/L BUN/Creatinine Ratio 15.4 Blood Urea Nitrogen 20 mg/dl Creatinine 1.30 mg/dl Potassium Level 4.1 mmol/L Sodium Level 135 mmol/L White Blood Count 12.67 K/uL HbA1c Test 11/10/16 05:23 Hemoglobin A1c 6.7 % (4.5-5.6) H Recent Pertinent Medications Outpatient Anti-diabetic Regimen: * A1c = 6.7 % 11/10/16, SAME A1C IN 2012 * No antidiabetic medications as outpatient The patient is currently receiving: * Correctional Insulin: Novolog Correction per scale ACHS Goal Range: Low 140 mg/dL - High 180 mg/dL Correction Factor: 25 mg/dL/unit * Prandial insulin: Per carb ratio of 1 unit per 25 grams CHO consumed Risk Factors for Insulin Resistance: * Pressors: Amiodarone drip * IVF: Amiodarone mixed in dextrose * Diet: AHA, Boost with chocolate flavoring (providing 41 grams CHO per dose). Assessment & Plan ASSESSMENT: * ADA & AACE recommend a goal blood sugar range 140-180 mg/dl for the majority of critically ill & non-critically ill patients. However, more stringent targets may be selected in individual cases. * 81 year old male admitted with new onset AFlutter. New A1c of 6.7%, which is the same as his A1c was in 2012, with no outpatient antidiabetic medicaitons. * Patient may just be having hyperglycemia due to inpatient stressors * OR patient may have an atypical glycation index - which reveals a lower A1c than actual blood sugar. * BSGs in the 300's yesterday, down to 204mg/dL this morning, but now back up to 349mg/dL. Patient on very loose prandial and correctional insulin, needs tightened * Patient requires DM education and possibly medication upon discharge, although possibly just education in consideration of patient's age and A1c has remained 6.7% since 2012. DM educator is aware of patient. * Will wait another day before starting any kind of basal insulin PLAN FOR INPATIENT GLYCEMIC CONTROL: * Correctional Insulin with NOVOLOG per scale ACHS or Q6hrs while NPO and at 00: 00 and 04:00 overnight * Goal Range: Low 140 mg/dL - High 180 mg/dL * TIGHTEN: Correction Factor: 20 mg/dL/unit * TIGHTEN: Nutritional / Prandial insulin per carb ratio of 1 unit per 7 grams CHO consumed * Please note that the plan above was derived based on current level of insulin resistance and hospital stress. These recommendations are appropriate for inpatient admission only. Plan of care upon discharge will need to be reassessed to avoid potential outpatient hypo/hyperglycemia. Thank you.
--- NOTE | 2016-11-11 14:27 | ECHOCARDIOGRAM REPORT ---
*NOTICE TO RECEIVING REPUBLICAN AGENCY This information is strictly Confidential and protected under [place] law. [place] law prohibits you from making any further disclosure of this information unless further disclosure is expressly permitted by the written consent of the person to whom it pertains or is authorized by law. A general authorization for the release of medical or other information is not sufficient for this purpose. Hospital accepts no responsibility if the information is made available to any other person, INCLUDING THE PATIENT. Interpretation Summary * Name: TOSHA MILLERJR Study Date: 11/10/2016 09:52 AM BP: 61/45 mmHg * Patient Location: 209 HR: 93 * : 1935 (M/d/yyyy) Gender: Male Height: 70 in * Age: 81 yrs Ethnicity: CA Weight: 203 lb * Ordering Physician: Kiko Stafford DO * Performed By: Berta Lora RDCS * * Reason For Study: Hypotension * BSA: 2.1 m2 * -- Conclusions -- * This was a limitted echo at the time of hypotension with anesthesia for a MÓNICA. * The LV apperas small and underfilled. * Overall LV fnction appears normal * The RV is dilated and severe hypokinesis of the RV free wall. * Mild RA enlargement with bowing of the intraatrial septum in the LA suggesting elevated RA pressures. * There is a 25 mm Bio AVR by history. the gradients were not significantly elevated. * No pericardial effussion * The aorta was not seen. Procedure Details * Limited views were obtained.
--- NOTE | 2016-11-11 19:37 | Family Medicine Progress Note ---
Progress Note Date of Service Nov 11, 2016. Subjective Pt evaluation today including: conversation w/ patient, physical exam Pain: pain has completely resolved Voiding: no voiding problems Patient was tachy overnight this morning when decision was bring made about transfer to [place] he actually converted to NSR and HR has maintained all day As the patient had an asymptomatic flutter and considering his right sided hypokinesis it was agreeable he be transferred to [place] for ablation. He is currently waiting for placement in [place] Constitutional: No fever Eyes: No worsening of vision ENT: No hearing loss Respiratory: + dyspnea on exertion, No cough, No shortness of breath, No sputum, No wheezing Cardiovascular: No chest pain Abdomen: No constipation, No diarrhea, No nausea, No pain, No vomiting Musculoskeletal: No joint pain, No muscle pain Male : No dysuria Neurologic: + weakness, No balance problems Endo: + fatigue Medications Medications Administered Medications (Trade) Dose Ordered Sig/Rubens Route Start Time Stop Time Status Last Admin Dose Admin Diltiazem HCl (Cardizem Inj) 20 mg NOW STAT IV 11/09/16 13:10 11/09/16 13:14 DC 11/09/16 13:27 20 MG Diltiazem HCl 30 mg 30 mg NOW STAT IV 11/09/16 13:10 11/09/16 13:14 DC 11/09/16 13:52 30 MG Sodium Chloride (Nss 500ml) 500 ml @ 999 mls/hr Q31M STAT IV 11/09/16 13:14 11/09/16 13:44 DC 11/09/16 13:31 999 MLS/HR Metoclopramide HCl 10 mg 10 mg NOW STAT IV 11/09/16 13:14 11/09/16 13:15 DC 11/09/16 13:26 10 MG Diltiazem HCl/ Dextrose (Cardizem Inj/D5 100ml) 125 ml @ 0 mls/hr Q0M PRN IV 11/09/16 13:30 11/10/16 14:17 DC 11/10/16 01:45 5 MLS/HR Acetaminophen (Tylenol Tab) 650 mg Q4H PRN PO 11/09/16 15:00 12/09/16 14:59 11/10/16 05:35 650 MG Aspirin (Ecotrin Tab) 81 mg BID PO 11/09/16 21:00 11/10/16 10:45 DC 11/09/16 20:28 81 MG Calcium/Vitamin D (Caltrate Plus Tab) 1 tab DAILY PO 11/10/16 09:00 12/10/16 08:59 11/10/16 13:00 1 TAB Furosemide (Lasix Tab) 20 mg DAILY PO 11/10/16 09:00 12/10/16 08:59 11/11/16 11:59 20 MG Multivitamins (Multivitamin Tab) 1 tab QPM PO 11/09/16 21:00 12/09/16 20:59 11/10/16 21:34 1 TAB Tamsulosin HCl 0.4 mg 0.4 mg PM PO 11/09/16 21:00 12/09/16 20:59 11/10/16 21:34 0.4 MG Sodium Chloride (Nss 1000ml) 1,000 ml @ 100 mls/hr Q10H ONCE IV 11/09/16 15:30 11/10/16 01:29 DC 11/09/16 20:25 100 MLS/HR Apixaban 5 mg 5 mg BID PO 11/09/16 21:00 12/09/16 20:59 Future hold 11/11/16 11:59 5 MG Amiodarone HCL/ Dextrose 100 ml @ 600 mls/hr NOW ONCE IV 11/09/16 16:00 11/09/16 16:09 DC 11/09/16 16:58 600 MLS/HR Amiodarone HCL/ Dextrose 200 ml @ 33.3 mls/hr Q6H1M IV 11/09/16 16:10 11/09/16 22:10 DC 11/09/16 16:59 33.3 MLS/HR Amiodarone HCL/ Dextrose 200 ml @ 16.7 mls/hr [id number] IV 11/09/16 22:10 11/10/16 10:45 DC 11/09/16 22:50 16.7 MLS/HR Diltiazem HCl 10 mg/Syringe 2 ml @ 2 mls/min TODAY@2030 IV 11/09/16 20:30 11/09/16 21:00 DC 11/09/16 20:33 2 MLS/MIN Amiodarone HCL/ Dextrose (Nexterone / D5w) 100 ml @ 600 mls/hr 2300 IV 11/09/16 23:00 11/09/16 23:09 DC 11/09/16 23:29 600 MLS/HR Nitroglycerin (Nitroglycerin 2% Oint) 1 inch Q6 EXT 11/10/16 06:00 12/10/16 05:59 11/11/16 17:16 1 INCH Morphine Sulfate 2 mg 2 mg STK-MED ONCE .ROUTE 11/10/16 07:31 11/10/16 07:33 DC 11/10/16 07:36 2 MG Amiodarone HCL/ Dextrose (Nexterone / D5w) 200 ml @ 16.7 mls/hr [id number] IV 11/10/16 12:00 12/10/16 11:59 11/11/16 12:06 16.7 MLS/HR Amiodarone HCL/ Dextrose (Nexterone / D5w) 150 mg STK-MED ONCE .ROUTE 11/10/16 12:42 11/10/16 12:43 DC 11/10/16 12:46 150 MG Furosemide (Lasix Inj) 40 mg NOW STAT IV 11/10/16 13:20 11/10/16 13:21 DC 11/10/16 14:06 40 MG Levothyroxine Sodium (Synthroid Tab) 50 mcg DAILYBB PO 11/11/16 06:00 12/11/16 05:59 11/11/16 05:33 50 MCG Amiodarone HCL/ Dextrose (Nexterone / D5w) 150 mg STK-MED ONCE .ROUTE 11/10/16 14:39 11/10/16 14:41 DC 11/10/16 14:53 150 MG Diltiazem HCl 20 mg 20 mg TODAY@1520 IV 11/10/16 15:20 11/10/16 15:21 DC 11/10/16 15:20 20 MG Diltiazem HCl/ Dextrose (Cardizem Inj/D5 100ml) 125 ml @ 0 mls/hr Q0M PRN IV 11/10/16 15:30 11/11/16 11:16 DC 11/11/16 04:13 15 MLS/HR Insulin Aspart (novoLOG ASPART) SLIDING SCALE G... ACHS SC 11/10/16 21:00 12/10/16 20:59 11/11/16 17:14 2 UNITS Enteral Nutritional Formula (Boost) 1 can TIDM PO 11/11/16 11:30 12/11/16 10:29 11/11/16 12:03 1 CAN Objective Vital Signs Date Time Temp Pulse Resp B/P Pulse Ox O2 Delivery O2 Flow Rate FiO2 11/11/16 17:58 76 16 128/67 97 Nasal Cannula 2.0 11/11/16 17:10 88 24 128/92 94 11/11/16 17:00 89 22 96 11/11/16 16:00 96 Nasal Cannula 2.0 11/11/16 16:00 82 24 94 11/11/16 15:58 36.5 84 24 110/74 94 Nasal Cannula 2.0 11/11/16 15:00 80 26 97 11/11/16 14:00 81 23 97 Nasal Cannula 3.0 11/11/16 13:59 83 34 116/70 97 11/11/16 13:29 80 26 113/66 97 11/11/16 13:00 86 31 98 11/11/16 12:59 86 25 77/43 96 11/11/16 12:28 80 24 114/67 97 Nasal Cannula 3.0 11/11/16 12:00 36.7 84 30 97 11/11/16 11:36 96 Nasal Cannula 2.0 11/11/16 10:58 82 24 117/78 95 11/11/16 10:30 81 19 95 11/11/16 10:29 80 17 89/40 95 11/11/16 10:00 76 23 94 11/11/16 09:58 77 16 114/56 95 Nasal Cannula 3.0 11/11/16 09:30 78 20 96 11/11/16 09:28 81 16 109/69 96 11/11/16 09:00 128 20 97 11/11/16 08:58 124 28 84/54 99 11/11/16 08:30 129 18 92 11/11/16 08:29 103 30 95/63 93 11/11/16 08:00 76 15 95 11/11/16 08:00 Nasal Cannula 2.0 11/11/16 07:59 36.5 109 25 107/65 95 Nasal Cannula 3.0 11/11/16 07:30 127 24 96 11/11/16 07:28 125 22 113/72 96 11/11/16 07:00 125 17 95 11/11/16 06:02 101 22 101/79 96 11/11/16 04:00 126 12 122/75 94 Nasal Cannula 3.0 11/11/16 04:00 Nasal Cannula 2.0 11/11/16 01:58 128 28 122/77 95 Nasal Cannula 3.0 11/11/16 00:59 85 3 97/76 96 Nasal Cannula 3.0 11/11/16 00:01 Nasal Cannula 2.0 11/10/16 23:58 36.8 128 20 122/81 93 Nasal Cannula 2.0 11/10/16 22:59 126 21 124/73 95 Nasal Cannula 2.0 11/10/16 22:16 82 19 108/64 95 Nasal Cannula 2.0 11/10/16 20:59 86 16 110/64 93 Nasal Cannula 2.0 11/10/16 20:00 Nasal Cannula 2.0 11/10/16 19:59 36.8 84 23 132/59 95 Nasal Cannula 2.0 Physical Exam General Appearance: WD/WN, no apparent distress Eyes: normal inspection ENT: normal ENT inspection Neck: supple Respiratory/Chest: + decreased breath sounds (bilat bases) Cardiovascular: regular rate, rhythm, no murmur Abdomen: normal bowel sounds, non tender, soft Extremities: non-tender, no calf tenderness, + pedal edema (+4 L>R) Neurologic/Psychiatric: alert, oriented x 3 Skin: normal color, warm/dry, no rash Lymphatic: no adenopathy Laboratory Results Results Past 24 Hours Test 11/10/16 21:09 11/10/16 23:39 11/11/16 05:48 11/11/16 10:59 Range/Units Bedside Glucose 386 383 349 70-99 mg/dl White Blood Count 12.67 4.8-10.8 K/uL Red Blood Count 3.19 4.7-6.1 M/uL Hemoglobin 10.1 14.0-18.0 g/dL Hematocrit 29.9 42-52 % Mean Corpuscular Volume 93.7 80-100 fL Mean Corpuscular Hemoglobin 31.7 25-34 pg Mean Corpuscular Hemoglobin Concent 33.8 32-36 g/dl RDW Standard Deviation 51.7 36.4-46.3 fL RDW Coefficient of Variation 15.2 11.5-14.5 % Platelet Count 236 130-400 K/uL Mean Platelet Volume 9.3 7.4-10.4 fL Sodium Level 135 136-145 mmol/L Potassium Level 4.1 3.5-5.1 mmol/L Chloride Level 99 98-107 mmol/L Carbon Dioxide Level 26 21-32 mmol/L Anion Gap 10.0 3-11 mmol/L Blood Urea Nitrogen 20 7-18 mg/dl Creatinine 1.30 0.60-1.40 mg/dl Est Creatinine Clear Calc Drug Dose 49.4 ml/min Estimated GFR () 58.5 Estimated GFR (Non- 50.5 BUN/Creatinine Ratio 15.4 10-20 Random Glucose 204 70-99 mg/dl Calcium Level 8.4 8.5-10.1 mg/dl Assessment and Plan 81 y/o male, with PMHx of aortic stenosis s/p porcine valve replacement on at [place] who presented to the ED with tachycardia. He was placed on Amio and Dilt with difficulty with rate control of his a flutter. It was decided to attempt a MÓNICA and cardioversion however the MÓNICA was unable to be completed. An echo noted a hypokinetic right side of the heart which is new from an echo which was done 2 weeks prior. He was then transferred for ICU and ongoing evaluation. WHile in the ICU he was treated with high doses with amiodarone and diltiazem without significant improvement in heart rate. In the am the patient was reevaluated by Dr Daniel and it was decided that because of the recent surgery, RV hypokinesis, it would be appropriate to transfer him to [place]. Mid conversation he actually converted to NSR. We discussed transfer and it was decided he would be transferred to [place] non emergently for ablation. A. Flutter on EKG: - transfer to ICU - Cardizem and Amiodarone drip - try to avoid metoprolol because of allergy - Continue ASA 81 mg PO BID - Consult cardiology, - appreciate input - TSH- revealed hypothyroidism - initiated Synthroid as per Dr Diana - CT to r/o dissection- negative only postop changes noted BPH: - Continue Flomax 0.4 mg PO QPM Chronic lower extremity edema: - Patient states swelling is currently at baseline - Continue Lasix 20 mg PO daily GI Prophylaxis: - Maalox PRN - IV Zofran PRN - Colace and/or Milk of Mag PRN DVT prophylaxis: - Eliquis 5 mg PO BID per cardiology - MARISA and SCDs Code Status: - LEVEL I, FULL Dispo: - Lives with at home. Has home health 2x per week. May be a candidate for transfer to [place]. Resident Physician Supervision Note: I interviewed and examined the patient. Discussed with Dr. Vargas and agree with findings and plan as documented in the note. Any exceptions or clarifications are listed here: None Documented By: Yang diana and dr daniel. pt feels the same - no sob no chest pain no palpitations. d/w dr daniel - since aflutter causing some angina and diastolic CHF and he really didn't feel it - and since aflutter was very difficult to control (essentially was uncontrolled until spontaneously converted) he feels risk of recurrence is high and risk of complications from recurrence is very high - hence still wanting to transfer [place] [facility] [place] vitals noted - was ~120's now NSR rate controlled. nad, breathing unlabored diminished bibasilar w coarse breath sounds. neurologically intact with no focal deficits. aflutter w RVR and diastolic CHF (as well as probably rate related angina) - aflutter complicated as recent AVR may play a role, non-adherence to beta blockers may play a role; but age and longstanding cardiac disease likely also playing a large role -more stable, converted to NSR. anticoagulated w eliquis. for transfer for possible ablation once bed available (dr daniel has d/w dr wilson [place] [facility] [place] is accepted, just waiting on bed, but since rate not a current issue - Ok to wait on bed availability) otherwise as above Continued [facility] stay due to: other Discharge planning: uncertain
[2016-11-11] MEDS: TAMSULOSIN HCL 0.4 MG CAP PO SCH (21:09)
[2016-11-11] MEDS: MULTIVITAMIN TAB PO SCH (21:09)
[2016-11-12] VITALS (14 sets, daily range): BP systolic 87–137; BP diastolic 57–84; PULSE 85–121; TEMP 36.4–36.9; O2SAT 94–97
[2016-11-12] MEDS: AMIODARONE / D5W 200 ML IV SCH ×3 (00:05→21:35)
[2016-11-12] MEDS: NITROGLYCERIN OINT 2% 1GM PACKET EXT SCH ×5 (00:06→23:23)
[2016-11-12] MEDS: INSULIN ASPART 100 UNITS/ML 3 ML PEN SC SCH ×6 (00:06→20:28)
[2016-11-12 05:27] LABS: HEMATOCRIT 25.7 % (42-52); MEAN CELL VOLUME 93.5 fL (80-100); MEAN CORPUSCULAR HGB CONC 34.2 g/dl (32-36); MEAN PLATELET VOLUME 9.2 fL (7.4-10.4); PLATELET COUNT 174 K/uL (130-400); RED BLOOD COUNT 2.75 M/uL (4.7-6.1); WHITE BLOOD COUNT 8.81 K/uL (4.8-10.8)
[2016-11-12 06:00] LABS: CALCIUM 7.9 mg/dl (8.5-10.1); POTASSIUM 4.2 mmol/L (3.5-5.1)
[2016-11-12] MEDS: LEVOTHYROXINE 50 MCG TAB PO SCH (06:17)
[2016-11-12] MEDS: BOOST VANILLA PO SCH ×6 (07:54→16:30)
[2016-11-12] MEDS: FUROSEMIDE 20 MG TAB PO SCH (08:10)
[2016-11-12] MEDS: CALCIUM 600MG + VIT D 400 IU TAB PO SCH (08:10)
[2016-11-12] MEDS: APIXABAN 2.5 MG TAB PO SCH ×2 (08:10→20:30)
--- NOTE | 2016-11-12 08:58 | Critical Care Progress Note ---
Critical Care Progress Note Date of Service Nov 12, 2016. Attending Dr. Diana Subjective back in afib and a flutter over night. denies chest pain, no sob , asymptomatic. orally fed, no dysphagia reported. Objective asymptomatic, but has not been ambulatory, denies sob and no chest pain. no dizziness, Assessment & Plan 1- a flutter , refractory to meds. 2- , s/p AVR , bioprosthetic on 10/25/2016. 3- possible esophageal stricture. Plan: 1- Per Dr. Stafford from cardiology. the pt will be transferred to [facility] for ablation procedure. 2- continue Eliquis. 3- continue Amiodarone drip. 4- GI prophylaxis. 5- hyperglycemia of [place] cause. HA1C done. 6- oral intake. 7- awaiting bed availability for transfer. 8- can be down graded to telemetry level. discussed with the staff on rounds. CCt 35 min. Data Medications: Current Inpatient Medications Medications (Trade) Dose Ordered Sig/Rubens Route Start Time Stop Time Status Last Admin Dose Admin Acetaminophen (Tylenol Tab) 650 mg Q4H PRN PO 11/09/16 15:00 12/09/16 14:59 11/10/16 05:35 650 MG Al Hydrox/Mg Hydrox/Simethicone (Maalox Max Susp) 15 ml Q4H PRN PO 11/09/16 15:00 12/09/16 14:59 Magnesium Hydroxide (Milk Of Magnesia Susp) 30 ml Q12H PRN PO 11/09/16 15:00 12/09/16 14:59 Ondansetron HCl (Zofran Inj) 4 mg Q6H PRN IV 11/09/16 15:00 12/09/16 14:59 Polyethylene (Miralax Powder Packet) 17 gm DAILY PRN PO 11/09/16 15:00 12/09/16 14:59 Calcium/Vitamin D (Caltrate Plus Tab) 1 tab DAILY PO 11/10/16 09:00 12/10/16 08:59 11/12/16 08:10 1 TAB Furosemide (Lasix Tab) 20 mg DAILY PO 11/10/16 09:00 12/10/16 08:59 11/12/16 08:10 20 MG Multivitamins (Multivitamin Tab) 1 tab QPM PO 11/09/16 21:00 12/09/16 20:59 11/11/16 21:09 1 TAB Tamsulosin HCl (Flomax Cap) 0.4 mg PM PO 11/09/16 21:00 12/09/16 20:59 11/11/16 21:09 0.4 MG Apixaban (Eliquis Tab) 5 mg BID PO 11/09/16 21:00 12/09/16 20:59 Future hold 11/12/16 08:10 5 MG Nitroglycerin (Nitroglycerin 2% Oint) 1 inch Q6 EXT 11/10/16 06:00 12/10/16 05:59 11/12/16 06:17 1 INCH Nitroglycerin (Nitrostat Tab) 0.4 mg UD PRN SL 11/10/16 07:30 12/10/16 07:29 Morphine Sulfate (MoRPHine SULFATE INJ) 2 mg Q30M PRN IV 11/10/16 07:30 11/24/16 07:29 Ioversol 100 ml 100 ml UD PRN IV 11/10/16 11:30 11/14/16 11:29 Amiodarone HCL/ Dextrose (Nexterone / D5w) 200 ml @ 16.7 mls/hr [id number] IV 11/10/16 12:00 12/10/16 11:59 11/12/16 00:05 16.7 MLS/HR Levothyroxine Sodium (Synthroid Tab) 50 mcg DAILYBB PO 11/11/16 06:00 12/11/16 05:59 11/12/16 06:17 50 MCG Insulin Aspart (novoLOG ASPART) SLIDING SCALE G... ACHS SC 11/10/16 21:00 12/10/16 20:59 11/12/16 08:22 8 UNITS Enteral Nutritional Formula (Boost) 1 can TIDM PO 11/11/16 11:30 12/11/16 10:29 11/12/16 07:54 1 CAN Miscellaneous Information (Consult Glycemic Management Pharmacy) 1 ea UD PRN N/A 11/11/16 12:31 12/11/16 12:30 Insulin Aspart (novoLOG ASPART) SLIDING SCALE G... 0000,0400 SC 11/12/16 00:00 12/12/16 00:00 11/12/16 04:13 1 UNITS I & O: 24-Hour Column 11/12/16 07:59 Intake Total 1550 ml Output Total 1150 ml Balance 400 ml Vital Signs: Date Time Temp Pulse Resp B/P Pulse Ox O2 Delivery O2 Flow Rate FiO2 11/12/16 08:00 36.7 118 20 137/84 94 Nasal Cannula 2.0 11/12/16 08:00 Nasal Cannula 2.0 11/12/16 06:00 92 18 109/68 97 Nasal Cannula 2.0 11/12/16 04:10 Nasal Cannula 2.0 11/12/16 04:00 36.6 109 28 121/76 94 Nasal Cannula 2.0 11/12/16 02:00 85 28 136/73 94 Nasal Cannula 2.0 11/12/16 00:00 36.4 86 13 134/73 95 Nasal Cannula 2.0 11/12/16 00:00 Nasal Cannula 2.0 11/11/16 22:00 87 24 138/71 95 Nasal Cannula 2.0 11/11/16 20:00 36.6 85 24 144/69 97 Nasal Cannula 2.0 11/11/16 20:00 Nasal Cannula 2.0 11/11/16 17:58 76 16 128/67 97 Nasal Cannula 2.0 11/11/16 17:10 88 24 128/92 94 11/11/16 17:00 89 22 96 11/11/16 16:00 96 Nasal Cannula 2.0 11/11/16 16:00 82 24 94 11/11/16 15:58 36.5 84 24 110/74 94 Nasal Cannula 2.0 11/11/16 15:00 80 26 97 11/11/16 14:00 81 23 97 Nasal Cannula 3.0 11/11/16 13:59 83 34 116/70 97 11/11/16 13:29 80 26 113/66 97 11/11/16 13:00 86 31 98 11/11/16 12:59 86 25 77/43 96 11/11/16 12:28 80 24 114/67 97 Nasal Cannula 3.0 11/11/16 12:00 36.7 84 30 97 11/11/16 11:36 96 Nasal Cannula 2.0 11/11/16 10:58 82 24 117/78 95 11/11/16 10:30 81 19 95 11/11/16 10:29 80 17 89/40 95 11/11/16 10:00 76 23 94 11/11/16 09:58 77 16 114/56 95 Nasal Cannula 3.0 11/11/16 09:30 78 20 96 11/11/16 09:28 81 16 109/69 96 11/11/16 09:00 128 20 97 11/11/16 08:58 124 28 84/54 99 S1S2 a flutter rate 110. lungs with basilar crackles. abdomen is benign. 2 + edema. neuro is intact. Laboratory Results: Last 24 Hours Test 11/11/16 10:59 11/11/16 15:57 11/11/16 20:43 11/12/16 00:00 Bedside Glucose 349 mg/dl 192 mg/dl 166 mg/dl 187 mg/dl Test 11/12/16 04:09 11/12/16 05:15 11/12/16 06:16 Bedside Glucose 184 mg/dl 178 mg/dl White Blood Count 8.81 K/uL Red Blood Count 2.75 M/uL Hemoglobin 8.8 g/dL Hematocrit 25.7 % Mean Corpuscular Volume 93.5 fL Mean Corpuscular Hemoglobin 32.0 pg Mean Corpuscular Hemoglobin Concent 34.2 g/dl RDW Standard Deviation 51.5 fL RDW Coefficient of Variation 15.3 % Platelet Count 174 K/uL Mean Platelet Volume 9.2 fL Sodium Level 134 mmol/L Potassium Level 4.2 mmol/L Chloride Level 99 mmol/L Carbon Dioxide Level 28 mmol/L Anion Gap 7.0 mmol/L Blood Urea Nitrogen 17 mg/dl Creatinine 1.00 mg/dl Est Creatinine Clear Calc Drug Dose 64.2 ml/min Estimated GFR () 80.3 Estimated GFR (Non- 69.3 BUN/Creatinine Ratio 17.0 Random Glucose 166 mg/dl Calcium Level 7.9 mg/dl
--- NOTE | 2016-11-12 09:28 | Cardiology Follow-Up ---
Subjective General Date of Service: Nov 12, 2016. Pt evaluation today including: conversation w/ patient, chart review, lab review, review of studies, conversation w/ communication consultant History of Present Illness The patient is a 81 year old male Allergies Coded Allergies: Metoprolol (Verified Adverse Reaction, Mild, GI SYMPTOMS, 11/09/16) nausea Social History Smoking Status: Never Smoker Hx Tobacco Use In Past Year?: No Hx Alcohol Use - Type And Amou: No Hx Substance Use - Type And Am: No Review of Systems Respiratory: + dyspnea at rest, + shortness of breath, No cough Cardiac: + edema, No chest pain, No orthopnea, No palpitations Physical Exam Vital Signs Last Vital Signs Documentation Date Time Temp Pulse Resp B/P Pulse Ox O2 Delivery O2 Flow Rate FiO2 11/12/16 08:00 36.7 118 20 137/84 94 Nasal Cannula 2.0 Physical Exam Constitutional: Level of Distress: mild distress Lungs: Auscultation: no wheezing, no rales/crackles, no rhonchi, decreased breath sounds (bases right >left BUT MUCH IMPROVED) Cardiovascular: Heart Auscultation: no murmurs, no rubs, tachycardia Abdomen: Bowel Sounds: normal Inspection & Palpation: soft, non-distended, no tenderness, guarding & rebound Extremities: edema (moderate edema right and mild edema) Assessment and Plan Assessment and Plan IMPRESSION: 1. New onset atrial flutter, status post bioprosthetic aortic valve replacements. 2. INTOLERANCE TO METOPROLOL, DUE TO SEVERE NAUSEA AND VOMITING. 3. Status post 25-mm bioprosthetic aortic valve replacement on 10/25/2016. 4. Mild left main and LAD disease preoperatively. 5. Chronic lower extremity edema on the right secondary to lymphedema. 6. Acute CHF secondary to Atrial Flutter 7. RV dysfunction new since sx He converted yesterday morning for about 12 hours and then back to flutter with RVR on amio Apixaban 5mg BID No TIA or stroke symptoms with conversion Currently back in Flutter SBP low and only able to use Amio with little affect on HR Concern over progressive CHF with HR uncontrolled; ENROLLER stable Lung sounds much improved this am Mild sore throat this am with spicy food but no neck or throat pain. No evidence of perforation on CT chest and no dissection or pericardial effusion Laboratory Results Last 24 Hours Test 11/11/16 10:59 11/11/16 15:57 11/11/16 20:43 11/12/16 00:00 Bedside Glucose 349 mg/dl 192 mg/dl 166 mg/dl 187 mg/dl Test 11/12/16 04:09 11/12/16 05:15 11/12/16 06:16 Bedside Glucose 184 mg/dl 178 mg/dl White Blood Count 8.81 K/uL Red Blood Count 2.75 M/uL Hemoglobin 8.8 g/dL Hematocrit 25.7 % Mean Corpuscular Volume 93.5 fL Mean Corpuscular Hemoglobin 32.0 pg Mean Corpuscular Hemoglobin Concent 34.2 g/dl RDW Standard Deviation 51.5 fL RDW Coefficient of Variation 15.3 % Platelet Count 174 K/uL Mean Platelet Volume 9.2 fL Sodium Level 134 mmol/L Potassium Level 4.2 mmol/L Chloride Level 99 mmol/L Carbon Dioxide Level 28 mmol/L Anion Gap 7.0 mmol/L Blood Urea Nitrogen 17 mg/dl Creatinine 1.00 mg/dl Est Creatinine Clear Calc Drug Dose 64.2 ml/min Estimated GFR () 80.3 Estimated GFR (Non- 69.3 BUN/Creatinine Ratio 17.0 Random Glucose 166 mg/dl Calcium Level 7.9 mg/dl
--- NOTE | 2016-11-12 13:50 | Pharmacy Progress Note ---
Glycemic: Assessment & Plan Date of Service Nov 12, 2016. Assessment & Plan ASSESSMENT: * Patient is an 81yo male who has been hyperglycemic since admission, but is otherwise non-diabetic. * Current A1c is 6.7%, which is acceptable in an 81yo with multiple co- morbidities * Do not anticipate that patient will require the addition of diabetic meds on discharge, unless hyperglycemia persists after the stress of illness abates. * Patient received 12 units of insulin yesterday, with BSGs somewhat better- controlled today. Will add small dose of daily Lantus at this time. PLAN FOR INPATIENT GLYCEMIC MANAGEMENTS: * Basal insulin: Lantus 10 units SQ daily * Correctional Insulin: Novolog Correction per scale ACHS Goal Range: Low 140 mg/dL - High 180 mg/dL Correction Factor: 20 mg/dL/unit * Prandial insulin: Per carb ratio of 1 unit per 7 grams CHO consumed Pharmacy will continue to monitor patient daily and write orders per [facility] inpatient glycemic control protocol. Thanks. * Please note that the plan above was derived based on current level of insulin resistance and hospital stress. These recommendations are appropriate for inpatient admission only. Plan of care upon discharge will need to be reassessed to avoid potential outpatient hypo/hyperglycemia.
[2016-11-12] MEDS ORDERED: INSULIN GLARGINE SOLOSTAR 100 UNITS/ML 3 ML PEN SC SCH (14:00)
--- NOTE | 2016-11-12 16:45 | Family Medicine Progress Note ---
Progress Note Date of Service Nov 12, 2016. Subjective Pt evaluation today including: conversation w/ patient, physical exam, chart review, conversation w/ beverage sales consultant Pain: 0/10 PO Intake: WNL Voiding: no voiding problems Patient returned to a flutter overnight but rate controlled As expected patient is asymptomatic which is concerning to d/c him at this time Still waiting placement at [facility] Constitutional: No fever Eyes: No worsening of vision ENT: No hearing loss Respiratory: No cough, No dyspnea on exertion, No shortness of breath, No sputum, No wheezing Cardiovascular: No chest pain Abdomen: No constipation, No diarrhea, No nausea, No pain, No vomiting Musculoskeletal: No joint pain, No muscle pain Male : No dysuria Neurologic: + balance problems, No memory loss, No weakness Endo: No fatigue Skin: No rash Medications Medications Administered Medications (Trade) Dose Ordered Sig/Rubens Route Start Time Stop Time Status Last Admin Dose Admin Diltiazem HCl (Cardizem Inj) 20 mg NOW STAT IV 11/09/16 13:10 11/09/16 13:14 DC 11/09/16 13:27 20 MG Diltiazem HCl 30 mg 30 mg NOW STAT IV 11/09/16 13:10 11/09/16 13:14 DC 11/09/16 13:52 30 MG Sodium Chloride (Nss 500ml) 500 ml @ 999 mls/hr Q31M STAT IV 11/09/16 13:14 11/09/16 13:44 DC 11/09/16 13:31 999 MLS/HR Metoclopramide HCl 10 mg 10 mg NOW STAT IV 11/09/16 13:14 11/09/16 13:15 DC 11/09/16 13:26 10 MG Diltiazem HCl/ Dextrose (Cardizem Inj/D5 100ml) 125 ml @ 0 mls/hr Q0M PRN IV 11/09/16 13:30 11/10/16 14:17 DC 11/10/16 01:45 5 MLS/HR Acetaminophen (Tylenol Tab) 650 mg Q4H PRN PO 11/09/16 15:00 12/09/16 14:59 11/10/16 05:35 650 MG Aspirin (Ecotrin Tab) 81 mg BID PO 11/09/16 21:00 11/10/16 10:45 DC 11/09/16 20:28 81 MG Calcium/Vitamin D (Caltrate Plus Tab) 1 tab DAILY PO 11/10/16 09:00 12/10/16 08:59 11/12/16 08:10 1 TAB Furosemide (Lasix Tab) 20 mg DAILY PO 11/10/16 09:00 12/10/16 08:59 11/12/16 08:10 20 MG Multivitamins (Multivitamin Tab) 1 tab QPM PO 11/09/16 21:00 12/09/16 20:59 11/11/16 21:09 1 TAB Tamsulosin HCl 0.4 mg 0.4 mg PM PO 11/09/16 21:00 12/09/16 20:59 11/11/16 21:09 0.4 MG Sodium Chloride (Nss 1000ml) 1,000 ml @ 100 mls/hr Q10H ONCE IV 11/09/16 15:30 11/10/16 01:29 DC 11/09/16 20:25 100 MLS/HR Apixaban 5 mg 5 mg BID PO 11/09/16 21:00 12/09/16 20:59 Future hold 11/12/16 08:10 5 MG Amiodarone HCL/ Dextrose 100 ml @ 600 mls/hr NOW ONCE IV 11/09/16 16:00 11/09/16 16:09 DC 11/09/16 16:58 600 MLS/HR Amiodarone HCL/ Dextrose 200 ml @ 33.3 mls/hr Q6H1M IV 11/09/16 16:10 11/09/16 22:10 DC 11/09/16 16:59 33.3 MLS/HR Amiodarone HCL/ Dextrose 200 ml @ 16.7 mls/hr [id number] IV 11/09/16 22:10 11/10/16 10:45 DC 11/09/16 22:50 16.7 MLS/HR Diltiazem HCl 10 mg/Syringe 2 ml @ 2 mls/min TODAY@2030 IV 11/09/16 20:30 11/09/16 21:00 DC 11/09/16 20:33 2 MLS/MIN Amiodarone HCL/ Dextrose (Nexterone / D5w) 100 ml @ 600 mls/hr 2300 IV 11/09/16 23:00 11/09/16 23:09 DC 11/09/16 23:29 600 MLS/HR Nitroglycerin (Nitroglycerin 2% Oint) 1 inch Q6 EXT 11/10/16 06:00 12/10/16 05:59 11/12/16 06:17 1 INCH Morphine Sulfate 2 mg 2 mg STK-MED ONCE .ROUTE 11/10/16 07:31 11/10/16 07:33 DC 11/10/16 07:36 2 MG Amiodarone HCL/ Dextrose (Nexterone / D5w) 200 ml @ 16.7 mls/hr [id number] IV 11/10/16 12:00 12/10/16 11:59 11/12/16 12:08 16.7 MLS/HR Amiodarone HCL/ Dextrose (Nexterone / D5w) 150 mg STK-MED ONCE .ROUTE 11/10/16 12:42 11/10/16 12:43 DC 11/10/16 12:46 150 MG Furosemide (Lasix Inj) 40 mg NOW STAT IV 11/10/16 13:20 11/10/16 13:21 DC 11/10/16 14:06 40 MG Levothyroxine Sodium (Synthroid Tab) 50 mcg DAILYBB PO 11/11/16 06:00 12/11/16 05:59 11/12/16 06:17 50 MCG Amiodarone HCL/ Dextrose (Nexterone / D5w) 150 mg STK-MED ONCE .ROUTE 11/10/16 14:39 11/10/16 14:41 DC 11/10/16 14:53 150 MG Diltiazem HCl 20 mg 20 mg TODAY@1520 IV 11/10/16 15:20 11/10/16 15:21 DC 11/10/16 15:20 20 MG Diltiazem HCl/ Dextrose (Cardizem Inj/D5 100ml) 125 ml @ 0 mls/hr Q0M PRN IV 11/10/16 15:30 11/11/16 11:16 DC 11/11/16 04:13 15 MLS/HR Insulin Aspart (novoLOG ASPART) SLIDING SCALE G... ACHS SC 11/10/16 21:00 12/10/16 20:59 11/12/16 12:07 10 UNITS Enteral Nutritional Formula (Boost) 1 can TIDM PO 11/11/16 11:30 2/25/17 10:29 11/12/16 11:37 1 CAN Insulin Aspart (novoLOG ASPART) SLIDING SCALE G... 0000,0400 SC 11/12/16 00:00 11/12/16 13:34 DC 11/12/16 04:13 1 UNITS Insulin Glargine (Lantus Solostar Pen) 10 unit DAILY SC 11/12/16 14:00 12/12/16 13:59 11/12/16 14:19 10 UNIT Objective Vital Signs Date Time Temp Pulse Resp B/P Pulse Ox O2 Delivery O2 Flow Rate FiO2 11/12/16 16:00 36.9 120 22 116/70 96 Nasal Cannula 2.0 11/12/16 16:00 Nasal Cannula 2.0 11/12/16 14:00 120 22 96/68 97 Nasal Cannula 2.0 11/12/16 12:00 36.9 117 28 100/69 97 Nasal Cannula 2.0 11/12/16 12:00 Nasal Cannula 2.0 11/12/16 10:00 118 18 88/63 97 Nasal Cannula 2.0 11/12/16 08:00 36.7 118 20 137/84 94 Nasal Cannula 2.0 11/12/16 08:00 Nasal Cannula 2.0 11/12/16 06:00 92 18 109/68 97 Nasal Cannula 2.0 11/12/16 04:10 Nasal Cannula 2.0 11/12/16 04:00 36.6 109 28 121/76 94 Nasal Cannula 2.0 11/12/16 02:00 85 28 136/73 94 Nasal Cannula 2.0 11/12/16 00:00 36.4 86 13 134/73 95 Nasal Cannula 2.0 11/12/16 00:00 Nasal Cannula 2.0 11/11/16 22:00 87 24 138/71 95 Nasal Cannula 2.0 11/11/16 20:00 36.6 85 24 144/69 97 Nasal Cannula 2.0 11/11/16 20:00 Nasal Cannula 2.0 11/11/16 17:58 76 16 128/67 97 Nasal Cannula 2.0 11/11/16 17:10 88 24 128/92 94 11/11/16 17:00 89 22 96 Physical Exam General Appearance: WD/WN, no apparent distress Eyes: normal inspection ENT: normal ENT inspection Neck: supple Respiratory/Chest: lungs clear, normal breath sounds, no respiratory distress, no accessory muscle use, + decreased breath sounds (bilat bases) Cardiovascular: + tachycardia, + irregularly irregular Abdomen: normal bowel sounds, non tender, soft Extremities: non-tender, no calf tenderness, + pedal edema (L>R +4) Neurologic/Psychiatric: alert, normal mood/affect, oriented x 3 Skin: normal color, warm/dry, no rash Lymphatic: no adenopathy Laboratory Results Results Past 24 Hours Test 11/11/16 20:43 11/12/16 00:00 11/12/16 04:09 11/12/16 05:15 Range/Units Bedside Glucose 166 187 184 70-99 mg/dl White Blood Count 8.81 4.8-10.8 K/uL Red Blood Count 2.75 4.7-6.1 M/uL Hemoglobin 8.8 14.0-18.0 g/dL Hematocrit 25.7 42-52 % Mean Corpuscular Volume 93.5 80-100 fL Mean Corpuscular Hemoglobin 32.0 25-34 pg Mean Corpuscular Hemoglobin Concent 34.2 32-36 g/dl RDW Standard Deviation 51.5 36.4-46.3 fL RDW Coefficient of Variation 15.3 11.5-14.5 % Platelet Count 174 130-400 K/uL Mean Platelet Volume 9.2 7.4-10.4 fL Sodium Level 134 136-145 mmol/L Potassium Level 4.2 3.5-5.1 mmol/L Chloride Level 99 98-107 mmol/L Carbon Dioxide Level 28 21-32 mmol/L Anion Gap 7.0 3-11 mmol/L Blood Urea Nitrogen 17 7-18 mg/dl Creatinine 1.00 0.60-1.40 mg/dl Est Creatinine Clear Calc Drug Dose 64.2 ml/min Estimated GFR () 80.3 Estimated GFR (Non- 69.3 BUN/Creatinine Ratio 17.0 10-20 Random Glucose 166 70-99 mg/dl Calcium Level 7.9 8.5-10.1 mg/dl Test 11/12/16 06:16 Range/Units Bedside Glucose 178 70-99 mg/dl Assessment and Plan 81 y/o male, with PMHx of aortic stenosis s/p porcine valve replacement on at [facility] who presented to the ED with tachycardia. He was placed on Amio and Dilt with difficulty with rate control of his a flutter. It was decided to attempt a MÓNICA and cardioversion however the MÓNICA was unable to be completed. An echo noted a hypokinetic right side of the heart which is new from an echo which was done 2 weeks prior. He was then transferred for ICU and ongoing evaluation. WHile in the ICU he was treated with high doses with amiodarone and diltiazem without significant improvement in heart rate. In the am the patient was reevaluated by Dr Stafford and it was decided that because of the recent surgery, RV hypokinesis, it would be appropriate to transfer him to [facility]. Mid conversation he actually converted to NSR. We discussed transfer and it was decided he would be transferred to [facility] non emergently for ablation. A. Flutter on EKG: - stable, downgrade to [facility] - Cardizem and Amiodarone drip - try to avoid metoprolol because of allergy - Continue ASA 81 mg PO BID - Consult cardiology, - appreciate input - TSH- revealed hypothyroidism- recheck in 6 weeks - initiated Synthroid as per Dr Diana - CT to r/o dissection- negative only postop changes noted BPH: - Continue Flomax 0.4 mg PO QPM Chronic lower extremity edema: - Patient states swelling is currently at baseline - Continue Lasix 20 mg PO daily GI Prophylaxis: - Maalox PRN - IV Zofran PRN - Colace and/or Milk of Mag PRN DVT prophylaxis: - Eliquis 5 mg PO BID per cardiology - MARISA and SCDs Code Status: - LEVEL I, FULL Dispo: - Lives with at home. Has home health 2x per week. waiting for placement at [facility] Resident Physician Supervision Note: I interviewed and examined the patient. Discussed with Dr. Vargas and agree with findings and plan as documented in the note. Any exceptions or clarifications are listed here: None Documented By: Yang Brown feeling fine. back in aflutter. rate ~110. no sob still waiting bed at [facility] seen in conjunction w cardiology vitals noted, nad hr irreg irreg tachy again aflutter / acute diastolic CHF - aflutter w RVR possibly due to recent AVR vs non-adherence to beta anatoliy vs simply age + long standing cardiac disease - continue rate control and anticoagulation as best as possible - not symptomatic and while back in flutter w RVR, not as fast as previous. awaiting bed for transfer for ablation. otherwise as above
[2016-11-12] MEDS: TAMSULOSIN HCL 0.4 MG CAP PO SCH (20:30)
[2016-11-12] MEDS: MULTIVITAMIN TAB PO SCH (20:31)
[2016-11-13 04:16] VITALS: BP 114/71; PULSE 98; TEMP 36.5; O2SAT 97
[2016-11-13 04:20] VITALS: O2SAT 97
[2016-11-13] MEDS: LEVOTHYROXINE 50 MCG TAB PO SCH (05:34)
[2016-11-13] MEDS: NITROGLYCERIN OINT 2% 1GM PACKET EXT SCH (05:40)
[2016-11-13 05:51] VITALS: BP 114/71; PULSE 98; TEMP 36.5; O2SAT 97
[2016-11-13 06:59] LABS: HEMATOCRIT 29.9 % (42-52); MEAN CELL VOLUME 92.9 fL (80-100); MEAN CORPUSCULAR HEMOGLOBIN 31.4 pg (25-34); MEAN CORPUSCULAR HGB CONC 33.8 g/dl (32-36); MEAN PLATELET VOLUME 9.2 fL (7.4-10.4); PLATELET COUNT 188 K/uL (130-400); RED BLOOD COUNT 3.22 M/uL (4.7-6.1); WHITE BLOOD COUNT 7.82 K/uL (4.8-10.8)
[2016-11-13] MEDS ORDERED: [UNRECOGNIZED DRUG - CODE] IV (07:32)
[2016-11-13] MEDS ORDERED: NTRO1 EXT (07:32)
[2016-11-13] MEDS ORDERED: INSDGIPEN SC (07:32)
[2016-11-13] MEDS ORDERED: NVLGIPEN SC (07:32)
[2016-11-13] MEDS ORDERED: SYN50 PO (07:32)
[2016-11-13] MEDS ORDERED: Enteral Nutrition Formula PO (07:32)
[2016-11-13] MEDS ORDERED: NTRSLP4 SL (07:32)
[2016-11-13] MEDS ORDERED: ELQ25 PO (07:32)
--- NOTE | 2016-11-13 07:33 | Discharge Instructions ---
Discharge Instructions Admission Reason for Admission: Atrial Flutter Discharge Discharge Diagnosis / Problem: refractory aflutter w RVR Discharge Goals Goal(s): Diagnostic testing, Therapeutic intervention Activity Recommendations Activity Level: Assistance Required . Additional Information Patient informed of condition: Yes Advance Directives: Yes DNR: No Level of Care: Other (tertiary) Communicable Disease: No Prognosis: Other (requiring further intervention) Current Hospital Diet Patient's current hospital diet: AHA Diet (Heart Healthy), Diabetes Type 2 Diet Discharge Diet Recommended Diet: Low Sodium Diet (2gm Na) Pending Studies Studies pending at discharge: no Laboratory Results Hemoglobin A1c Test 11/10/16 05:23 Range/Units Estimated Average Glucose 146 mg/dl Hemoglobin A1c 6.7 H 4.5-5.6 % Medical Emergencies . Who to Call and When: Medical Emergencies: If at any time you feel your situation is an emergency, please call 911 immediately. . Non-Emergent Contact Non-Emergency issues call your: Primary Care Provider . . "Provider Documentation" section prepared by Yang Brown. Core Measure Problem Core Measures: None
[2016-11-13] MEDS: INSULIN ASPART 100 UNITS/ML 3 ML PEN SC SCH (07:41)
--- NOTE | 2016-11-13 07:42 | Discharge Summary ---
Discharge Summary Admission Date: Nov 09, 2016 at 15:16 Discharge Date: Nov 13, 2016 Discharge Disposition: Acute care facility ([facility]) Principal Diagnosis: aflutter w RVR and mild diastolic CHF Procedures: echo: Interpretation Summary * Name: TOSHA MILLER Study Date: 11/10/2016 09:52 AM BP: 61/45 mmHg * Patient Location: 209 HR: 93 * : 1935 (M/d/yyyy) Gender: Male Height: 70 in * Age: 81 yrs Ethnicity: CA Weight: 203 lb * Ordering Physician: Kiko Stafford DO * Performed By: Berta Lora RDCS * * Reason For Study: Hypotension * BSA: 2.1 m2 * -- Conclusions -- * This was a limitted echo at the time of hypotension with anesthesia for a MÓNICA. * The LV apperas small and underfilled. * Overall LV fnction appears normal * The RV is dilated and severe hypokinesis of the RV free wall. * Mild RA enlargement with bowing of the intraatrial septum in the LA suggesting elevated RA pressures. * There is a 25 mm Bio AVR by history. the gradients were not significantly elevated. * No pericardial effussion * The aorta was not seen. Procedure Details * Limited views were obtained. Last Resulted CBC 11/13/16 06:02 Last Resulted BMP 11/12/16 05:15 11/13/16 06:02 Hemoglobin A1c Test 11/10/16 05:23 Range/Units Estimated Average Glucose 146 mg/dl Hemoglobin A1c 6.7 H 4.5-5.6 % CT ANGIOGRAPHY OF THE CHEST, ABDOMEN, AND PELVIS CLINICAL HISTORY: Chest pain radiating to back. Hypotension. Recent aortic valve replacement. COMPARISON STUDY: Chest radiograph November 09, 2016 and November 10, 2016. TECHNIQUE: Before and following the IV administration of 120 mL of Optiray-320, helical axial images of the chest, abdomen and pelvis were obtained. Maximal intensity projections and sagittal and coronal reformats were viewed on an independent 3D workstation. IV contrast was administered without complication. CT DOSE: 1471.61 mGy.cm FINDINGS: The heart is moderately enlarged. There are post surgical findings consistent with an aortic valve replacement. There is no intramural hematoma or aortic dissection. There are findings consistent with a right-sided thoracotomy for aortic valve replacement. A moderate right pleural effusion is present. A small left pleural effusion is noted. The lungs are suboptimally assessed due to respiratory motion. There is no significant pericardial effusion. There is mild dilatation of the central pulmonary arteries. No enlarged thoracic lymph nodes are present. There is trace gas within the operative bed, anterior to the ascending aorta. The liver, spleen, adrenal glands, kidneys and pancreas are unremarkable with exception of a centimeter right renal calculus and bilateral parapelvic cysts. Note is made of hypodense nonenhancing abnormalities within each groin. The right groin abnormality measures 7 x 3.9 cm. These are likely postprocedural. No pseudoaneurysm is identified on the CTA. There is extensive atherosclerotic plaque within the abdominal aorta and the branch vessels. Thoracic spine compression fractures are incidentally noted. IMPRESSION: 1. Postsurgical findings consistent with a right anterior thoracotomy and aortic valve replacement. Small amount of fluid and gas within the operative bed is within normal limits in the early postoperative setting. No aortic dissection. No rupture. 2. Moderate right and small left pleural effusions with associated opacity suggestive atelectasis. 3. Deformity of the anterior right chest wall which is likely postsurgical. 4. Hypodense abnormalities within each groin, as described above. These are likely postprocedural and may reflect seromas or resolving hematomas. No pseudoaneurysm identified. Electronically signed by: Mendel Shelby M.D. 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 machine operator here) Consultations: cardiology sharples machine operator Medication Reconciliation New Medications: Amiodarone Hcl In Dextrose (Nexterone) 1 Inj Inj 1 UNIT IV UD, #1 Apixaban (Eliquis) 2.5 Mg Tab 5 MG PO BID, #1 TAB Insulin Aspart (Novolog Flexpen) 100 Units/Ml Inj 0 UNITS SC ACHS, #1 Insulin Glargine (Lantus Solostar) 100 Unit/Ml Inj 10 UNIT SC DAILY, #1 Levothyroxine Sodium (Synthroid) 50 Mcg Tab 50 MCG PO DAILYBB, #1 TAB Nitroglycerin (Nitrostat) 0.4 Mg/1 Tab Subl 0.4 MG SL UD PRN for Chest Pain, #1 Nitroglycerin (Nitro-Bid) 1 Inch/Pkt Oint 1 INCH EXT Q6, #1 [Enteral Nutrition Formula] () 1 CAN LIQD 1 CAN PO TIDM, #1 Continued Medications: Aspirin (Aspir-81) 81 Mg Tab 1 TAB PO BID for 90 Days, #180 TAB 3 Refills Calcium/Vitamin D (Os-Gagan 500 Plus D) Tab 1 TAB PO DAILY, TAB Cholecalciferol (Vitamin D3) 2,000 Unit Cap 1 CAP PO DAILY for 30 Days, #30 CAP 3 Refills Furosemide (Lasix) 20 Mg Tab 20 MG PO DAILY Multivitamin (Multivitamin) Tab 1 TAB PO QPM Tamsulosin Hcl (Flomax) 0.4 Mg Cap 0.4 MG PO PM, CAP Discontinued Medications: Metoprolol Tartrate (Lopressor) 50 Mg Tab 25 MG PO BID, TAB Discharge Exam Physical Exam: General Appearance: no apparent distress Eyes: EOMI ENT: hearing grossly normal Neck: trachea midline Respiratory/Chest: no respiratory distress, no accessory muscle use Cardiovascular: + irregularly irregular (tachycardia) Extremities: normal inspection Neurologic/Psychiatric: clod puller II-XII nml as tested, alert, normal mood/affect Skin: normal color, warm/dry Hospital Course 81 y/o male, with PMHx of aortic stenosis s/p porcine valve replacement on at [facility] who presented to the ED with tachycardia. He was placed on Amio and Dilt with difficulty with rate control of his a flutter. It was decided to attempt a MÓNICA and cardioversion however the MÓNICA was unable to be completed. An echo noted a hypokinetic right side of the heart which is new from an echo which was done 2 weeks prior. He was then transferred for ICU and ongoing evaluation. While in the ICU he was treated with high doses with amiodarone and diltiazem without significant improvement in heart rate, and decision was made for transfer to [facility] for higher level EP involvement. pt then spontaneously converted to NSR - but given that he was asymptomatic w the flutter/RVR and also compounded by the fact that he quickly went back into aflutter/RVR - decision was kept to keep for transfer for more definitive management Atrial flutter w RVR and mild diastolic CHF - possibly due to recent AVR vs due to metoprolol non-adherence (nausea) or possible due to age + longstanding structural heart disease (aortic stenosis) (and likely elements of all of above) -amio, dilt as per cardiology -now for transfer to [facility] - stable for ground -mild diastolic CHF currently being managed with rate control (which obviously has affected good improvement) and lasix (typically has been home dose so as to avoid iatrogenic hypotension, but has had a few IV doses additionally) -anticoagulated w apixaban right ventricular hypokinesis -appearing new/worse - but previous echos did show longstanding pulmonary HTN ( almost certainly from aortic stenosis) -- suspect rate/acute diastolic CHF has most to do with acuity of the echo findings, clinically he does not appear as a severely decompensated R sided CHF - but once rate control / and/or rhythm control successful would want follow up echo to confirm improvement BPH: - Continue Flomax 0.4 mg PO QPM DVT prophylaxis: - Eliquis 5 mg PO BID per cardiology Code Status: - LEVEL I, FULL Total Time Spent: Less than 30 minutes This includes examination of the patient, discharge planning, medication reconciliation, and communication with other providers. Discharge Instructions Please refer to the electronic Patient Visit Report (Discharge Instructions) for additional information. Follow-Up @ [facility] Additional Copies To Jacinto Mcleod MD; Kiko Stafford, DO
[2016-11-13 07:49] VITALS: BP 113/69; PULSE 110; TEMP 36.5; O2SAT 97
== END 2016-11-13 08:41 | disposition short-term general hospital (02) | DRG 314 ==
LOC: ENRESERVTM → ENRESERVDT → C.EDB 12:40 → C.2E 15:16 → C.MSICU 11-10 12:04 → C.2T 11-12 18:57
PROVIDERS: ADMIT Internal Medicine; ATTEND Family Medicine
PROC: B246ZZ4 Ultrasonography of Right and Left Heart, Transesophageal (ICD-10-PCS; principal; 2016-11-10 10:00)
DX: I97.89 Other postprocedural complications and disorders of the circulatory system, not elsewhere classified (principal); I50.31 Acute diastolic (congestive) heart failure; I48.92 Unspecified atrial flutter; I48.91 Unspecified atrial fibrillation; R60.0 Localized edema; E03.9 Hypothyroidism, unspecified; N40.0 Benign prostatic hyperplasia without lower urinary tract symptoms; I27.2 Other secondary pulmonary hypertension; I87.2 Venous insufficiency (chronic) (peripheral); I89.0 Lymphedema, not elsewhere classified; I25.10 Atherosclerotic heart disease of native coronary artery without angina pectoris; T46.905A Adverse effect of unspecified agents primarily affecting the cardiovascular system, initial encounter; I95.9 Hypotension, unspecified; T41.295A Adverse effect of other general anesthetics, initial encounter; Y92.239 Unspecified place in hospital as the place of occurrence of the external cause; Z85.828 Personal history of other malignant neoplasm of skin; Z88.8 Allergy status to other drugs, medicaments and biological substances; Z95.2 Presence of prosthetic heart valve; Z95.3 Presence of xenogenic heart valve; Z79.82 Long term (current) use of aspirin; Z79.899 Other long term (current) drug therapy

== ENCOUNTER → 2017-10-07 | Outpatient (CLI) | payer BC ==
[~2017-10-07] MED LIST changes: +AMOX250C3 PO; -ASPEC81 PO; +ASPI-232 PO; +CALC250T8 PO; +CALC500C70 PO; +CEFT1INJ57 IV; +CHOL2000 PO; +DILT-113 PO; +ELQ25 PO; +Enteral Nutrition Formula PO; +FURO20TA PO; +GLC/500 PO; +INSDGIPEN SC; +NTRO1 EXT; +NTRSLP4 SL; +NVLGIPEN SC; +SYN50 PO; +TAMS0.4C38 PO; +UNKNOWN ANTIBIOTIC PO; +[UNRECOGNIZED DRUG - CODE] IV
--- NOTE | 2017-10-07 13:15 | DIAGNOSTIC IMAGING REPORT ---
R FOOT MIN 3 VIEWS ROUTINE CLINICAL HISTORY: 82 years-old Male presenting with CELLULITIS IN RIGHT FOOT. TECHNIQUE: Frontal, oblique, and lateral views of the right foot were obtained. COMPARISON: None. FINDINGS: Osteopenia. Atherosclerosis. No displaced fracture. Malpositioning of the toes limits evaluation of the phalanges and interphalangeal joints. No osseous erosion or periosteal reaction is apparent. Evaluation is limited for osteomyelitis given underlying osteopenia. Diffuse soft tissue edema suggested. No soft tissue emphysema. Prominent bone spur at the origin of the plantar fascia. IMPRESSION: No radiographic evidence of osteomyelitis allowing for osteopenia. Diffuse subcutaneous swelling could be compatible with given history of cellulitis. No soft tissue emphysema is radiographically apparent. Electronically signed by: Italo Negrete M.D. 10/07/2017 1:13 PM Dictated Date/Time: 10/07/2017 1:10 PM
== END | disposition home or self-care (01) ==
LOC: C.RAD1850 12:48
PROVIDERS: ATTEND Family Medicine
DX: L03.115 Cellulitis of right lower limb (principal)

== ENCOUNTER 2017-10-11 15:11 | Inpatient (IN) | payer BC, OTHER ==
[~2017-10-11] VITALS: Ht 180.3 cm; Wt 89.7 kg
[~2017-10-11 15:11] MED LIST changes: -AMOX250C3 PO; -CALC250T8 PO; -CEFT1INJ57 IV; -DILT-113 PO; -GLC/500 PO; -UNKNOWN ANTIBIOTIC PO
[2017-10-11] MEDS ORDERED: PIPERACILLIN/TAZOBACTAM 4.5 GM/100ML D5W IV STA (17:11)
[2017-10-11] MEDS ORDERED: VANCOMYCIN IV 1,750 MG in SODIUM CHLORIDE 0.9% 500ML 500 ML IV STA (17:11)
[2017-10-11 17:52] LABS: BASO % 0.3 %; BASO ABS # 0.02 K/uL (0-0.2); EOS % 6.3 %; EOS ABS # 0.45 K/uL (0-0.5); HEMATOCRIT 36.7 % (42-52); HEMOGLOBIN 12.7 g/dL (14.0-18.0); IG# 0.03 K/uL (0.00-0.02); LYMPH % 14.5 %; LYMPH ABS # 1.04 K/uL (1.2-3.4); MEAN CELL VOLUME 93.6 fL (80-100); MEAN CORPUSCULAR HEMOGLOBIN 32.4 pg (25-34); MEAN CORPUSCULAR HGB CONC 34.6 g/dl (32-36); MEAN PLATELET VOLUME 10.5 fL (7.4-10.4); MONO % 15.6 %; MONO ABS # 1.12 K/uL (0.11-0.59); NEUT % 62.9 %; NEUT ABS # 4.52 K/uL (1.4-6.5); PLATELET COUNT 162 K/uL (130-400); RED CELL DISTRIBUTION WIDTH CV 14.1 % (11.5-14.5); RED CELL DISTRIBUTION WIDTH SD 48.1 fL (36.4-46.3); WHITE BLOOD COUNT 7.18 K/uL (4.8-10.8)
--- NOTE | 2017-10-11 18:02 | DIAGNOSTIC IMAGING REPORT ---
R FOOT MIN 3 VIEWS ROUTINE CLINICAL HISTORY: 82 years-old Male presenting with right foot infection, wound plantar surface of 1st MTP. TECHNIQUE: Frontal, oblique, and lateral views of the right foot were obtained. COMPARISON: 10/07/2017. FINDINGS: Diffuse soft tissue swelling of the right foot persists and may have increased from prior. No soft tissue emphysema is apparent. Atherosclerosis. Osteopenia. Allowing for osteopenia, no acute fracture or acute malalignment. Osteopenia limits evaluation for erosion. Allowing for this, no focal osteolysis is apparent. Specifically, no gross osseous abnormality of the first metatarsal or first metatarsophalangeal joint. Bone spur at the inferior calcaneus. IMPRESSION: 1. Allowing for osteopenia, no gross radiographic evidence of osteomyelitis. 2. Diffuse soft tissue swelling of the foot could be compatible with cellulitis. No radiographic evidence of soft tissue emphysema. Electronically signed by: Italo Negrete M.D. 10/11/2017 6:01 PM Dictated Date/Time: 10/11/2017 5:58 PM
[2017-10-11 18:43] LABS: ALBUMIN 3.2 gm/dl (3.4-5.0); CALCIUM 8.9 mg/dl (8.5-10.1); CREATININE 1.53 mg/dl (0.60-1.40); POTASSIUM 4.5 mmol/L (3.5-5.1)
[2017-10-11 18:46] LABS: TOTAL PROTEIN 6.9 gm/dl (6.4-8.2)
--- NOTE | 2017-10-11 18:57 | DIAGNOSTIC IMAGING REPORT ---
RIGHT LOWER EXTREMITY VENOUS DOPPLER CLINICAL HISTORY: Right lower extremity swelling. COMPARISON STUDY: Right lower extremity venous Doppler March 11, 2009. TECHNIQUE: Sonography of the deep venous system of the right lower extremity was performed. Compression and augmentation were evaluated. FINDINGS: The common femoral, superficial femoral and popliteal veins were compressible. Augmentation was normal. Minimal linear echogenic material along the wall of the right femoral vein was noted. Calf vessels were suboptimally assessed due to lower extremity edema. IMPRESSION: Minimal linear echogenic material along the wall of the right femoral vein which suggests minimal chronic deep venous thrombus. No sonographic evidence of acute deep venous thrombus within the right lower extremity. Electronically signed by: Mendel Shelby M.D. 10/11/2017 6:56 PM Dictated Date/Time: 10/11/2017 6:53 PM
[2017-10-11] MEDS ORDERED: GLC/500 PO (19:25)
[2017-10-11] MEDS ORDERED: DILT-113 PO (19:29)
[2017-10-11] MEDS ORDERED: UNKNOWN ANTIBIOTIC PO (19:39)
[2017-10-11] MEDS ORDERED: AMOX250C3 PO (19:39)
[2017-10-11] MEDS ORDERED: CALC250T8 PO (19:41)
[2017-10-11] MEDS ORDERED: ALUMINUM/MAGNESIUM/SIMETH (MAALOX MAX) 30 ML UDC PO PRN (21:30)
[2017-10-11] MEDS ORDERED: GLUCAGON FOR INJ 1 MG VIAL SQ PRN (21:30)
[2017-10-11] MEDS ORDERED: MAGNESIUM HYDROXIDE SUSP 30 ML UDC PO PRN (21:30)
[2017-10-11] MEDS ORDERED: ACETAMINOPHEN 325 MG TAB PO PRN (21:30)
[2017-10-11] MEDS ORDERED: GLUCOSE 40% GEL 15 GM TUBE PO PRN (21:30)
[2017-10-11] MEDS ORDERED: ONDANSETRON INJ 2 MG/ML 2 ML VIAL IV PRN (21:30)
[2017-10-11] MEDS ORDERED: CEFEPIME IV 1,000 MG in DEXTROSE 5% 100ML 100 ML IV SCH (21:30)
[2017-10-11] MEDS ORDERED: DEXTROSE 50% 50 ML SYR IV PRN (21:30)
[2017-10-11] MEDS ORDERED: POLYETHYLENE (MIRALAX) 17 GM PACK PO PRN (21:30)
[2017-10-11] MEDS ORDERED: GLUCOSE 10 TABS/TUBE PO PRN (21:30)
[2017-10-11] MEDS ORDERED: ZOLPIDEM TARTRATE 5 MG TAB PO PRN ×2 (21:30)
--- NOTE | 2017-10-11 21:52 | History and Physical ---
History & Physical Date & Time of Service: Oct 11, 2017 at 21:38 Chief Complaint: Sore On Right Foot;Doc Sent To Er Primary Care Physician: Jacinto Mcleod MD History of Present Illness Source: patient, partner 78-year-old man sent to the emergency room by his doctor after failing treatment for cellulitis as an outpatient for his right foot. Patient does have lymphedema in his right lower extremity from a previous injury about 10 years ago and before Patient removed a callus about 2 weeks ago. After that his big toe got infected. Failed outpatient sulfa/amoxicillin although a culture in and out she patient sitting showed MSSA Currently has significant swelling/erythema tenderness in discharge from the wound The patient notes that he takes an Aspirin. Rest of the review systems negative Past Medical/Surgical History Medical Problems: (1) Atrial flutter Status: Resolved (2) Diabetes Status: Chronic Surgical Problems: (1) H/O aortic valve replacement Status: Resolved (2) S/P AVR (aortic valve replacement) Status: Resolved Family History Patient reports no known family medical history. Social History Smoking Status: Never Smoker Marital Status: Housing status: lives with significant other Occupational Status: retired Multi-Drug Resistant Organisms History of MDRO: No Allergies Coded Allergies: Metoprolol (Verified Adverse Reaction, Mild, GI SYMPTOMS, 10/11/17) nausea Home Medications Scheduled Amoxicillin (Amoxil), 1 CAP PO TID Aspirin (Aspir-81), 1 TAB PO BID Calcium Citrate (Calcium Citrate), 500 MG PO DAILY Cholecalciferol (Vitamin D3), 1 CAP PO DAILY Diltiazem Hcl Ext Rel (Tiazac), 180 MG PO DAILY Furosemide (Lasix), 20 MG PO DAILY Levothyroxine Sodium (Synthroid), 50 MCG PO DAILYBB Metformin Hcl (Glucophage), 500 MG PO BID Multivitamin (Multivitamin), 1 TAB PO QPM Tamsulosin Hcl (Flomax), 0.4 MG PO PM [Unknown Antibiotic], PO UD Review of Systems Constitutional: No fever, No chills, No sweats, No weight loss, No weakness, No fatigue, No problem reported Eyes: No worsening of vision, No eye pain, No redness, No discharge, No diplopia, No problem reported ENT: No hearing loss, No unusual epistaxis, No nasal symptoms, No sore throat, No tinnitus, No dental problems, No trouble swallowing, No problem reported Respiratory: No cough, No sputum, No wheezing, No shortness of breath, No dyspnea on exertion, No dyspnea at rest, No hemoptysis, No problem reported Cardiovascular: No chest pain, No orthopnea, No PND, No edema, No claudication , No palpitations, No problem reported Abdomen: No pain, No nausea, No vomiting, No diarrhea, No constipation, No GI bleeding, No problem reported Musculoskeletal: + problem reported (right foot swelling, erythema), No joint pain, No muscle pain, No swelling, No calf pain Genitourinary - Male: No hematuria, No dysuria, No urinary frequency, No urinary urgency, No urinary hesitancy, No urinary retention, No urinary incontinence, No penile discharge, No lesions, No impotence, No problem reported Neurologic: No memory loss, No paralysis, No weakness, No numbness/tingling, No vertigo, No balance problems, No problem reported Psychiatric: No depression symptoms, No anhedonism, No anxiety, No insomnia, No substance abuse, No problem reported Endocrine: No fatigue, No excessive thirst, No excessive urination, No problem reported Hematologic / Lymphatic: No abnormal bleeding/bruising, No clotting problems, No swollen lymph nodes, No night sweats, No problem reported Integumentary: No rash, No itch, No new/changing skin lesions, No color change , No bleeding, No problem reported Allergic / Immunologic: No environmental allergies, No seasonal allergies, No pet sensitivities, No food allergies, No hives, No frequent infections, No poor healing, No prolonged convalescence, No problem reported Physical Exam Vital Signs Date Time Temp Pulse Resp B/P (MAP) Pulse Ox O2 Delivery O2 Flow Rate FiO2 10/11/17 20:36 146/76 10/11/17 17:49 72 146/76 93 Room Air 10/11/17 15:25 36.6 89 20 147/77 97 Room Air General Appearance: WD/WN, no apparent distress Head: normocephalic, atraumatic Eyes: normal inspection, EOMI ENT: normal ENT inspection, hearing grossly normal Neck: supple Respiratory/Chest: chest non-tender, lungs clear, normal breath sounds, no respiratory distress, no accessory muscle use Cardiovascular: regular rate, rhythm, no edema, no gallop, no JVD, no murmur, normal peripheral pulses Abdomen/GI: normal bowel sounds, non tender, soft, no organomegaly, no pulsatile mass Back: normal inspection Extremities/Musculoskelatal: + pertinent finding (right lower extremity lymphedema) Neurologic/Psych: ergonomic specialist II-XII nml as tested, no motor/sensory deficits, alert, normal mood/affect, normal reflexes, oriented x 3 Skin: normal color, warm/dry, no rash Diagnostics Laboratory Results Results Past 24 Hours Test 10/11/17 17:40 10/11/17 17:59 10/11/17 21:22 Range/Units White Blood Count 7.18 4.8-10.8 K/uL Red Blood Count 3.92 4.7-6.1 M/uL Hemoglobin 12.7 14.0-18.0 g/dL Hematocrit 36.7 42-52 % Mean Corpuscular Volume 93.6 80-100 fL Mean Corpuscular Hemoglobin 32.4 25-34 pg Mean Corpuscular Hemoglobin Concent 34.6 32-36 g/dl Platelet Count 162 130-400 K/uL Mean Platelet Volume 10.5 7.4-10.4 fL Neutrophils (%) (Auto) 62.9 % Lymphocytes (%) (Auto) 14.5 % Monocytes (%) (Auto) 15.6 % Eosinophils (%) (Auto) 6.3 % Basophils (%) (Auto) 0.3 % Neutrophils # (Auto) 4.52 1.4-6.5 K/uL Lymphocytes # (Auto) 1.04 1.2-3.4 K/uL Monocytes # (Auto) 1.12 0.11-0.59 K/uL Eosinophils # (Auto) 0.45 0-0.5 K/uL Basophils # (Auto) 0.02 0-0.2 K/uL RDW Standard Deviation 48.1 36.4-46.3 fL RDW Coefficient of Variation 14.1 11.5-14.5 % Immature Granulocyte % (Auto) 0.4 % Immature Granulocyte # (Auto) 0.03 0.00-0.02 K/uL Sodium Level 134 136-145 mmol/L Potassium Level 4.5 3.5-5.1 mmol/L Chloride Level 100 98-107 mmol/L Carbon Dioxide Level 26 21-32 mmol/L Anion Gap 7.0 3-11 mmol/L Blood Urea Nitrogen 25 7-18 mg/dl Creatinine 1.53 0.60-1.40 mg/dl Est Creatinine Clear Calc Drug Dose 40.9 ml/min Estimated GFR () 47.7 Estimated GFR (Non- 41.1 BUN/Creatinine Ratio 16.1 10-20 Random Glucose 211 70-99 mg/dl Calcium Level 8.9 8.5-10.1 mg/dl Total Bilirubin 0.6 0.2-1 mg/dl Direct Bilirubin 0.2 0-0.2 mg/dl Aspartate Amino Transf (AST/SGOT) 24 15-37 U/L Alanine Aminotransferase (ALT/SGPT) 32 12-78 U/L Alkaline Phosphatase 81 45-117 U/L Total Protein 6.9 6.4-8.2 gm/dl Albumin 3.2 3.4-5.0 gm/dl Microbiology Results 10/11/17 Blood Culture, Ordered Pending 10/11/17 Blood Culture, Ordered Pending 10/11/17 Blood Culture, Received Pending 10/11/17 Blood Culture, Received Pending 10/11/17 Gram Stain - Final, Resulted 10/11/17 Wound Culture, Resulted Pending Impression Assessment and Plan 82 y/o male, with PMHx of aortic stenosis s/p porcine valve replacement on at [facility], transient atrial flutter, was in Eliquis currently stopped and on aspirin, hypertension, BPH, hypothyroidism and right lower extremity lymphedema secondary to an injury happened 10 years ago. Presented with a right foot infection failed outpatient antibiotics therapy. Assessment Right foot diabetic ulcer/cellulitis Recently diagnosed diabetes History of porcine aortic valve replacement History of a flutter after the surgery, currently in sinus that his mind off anticoagulation Hypertension BPH Acute kidney injury with creatinine 1.5, baseline creatinine is 1.1 Plan Admit patient to [facility] We'll not hold aspirin, unless orthopedic surgeon decided to operate Consult orthopedic surgeon consult infectious diseases Gentle IV fluid hydration Continue home medication Start patient on Vanco/cefepime Start patient on lactobacillus Heparin for DVT prophylaxis VTE Prophylaxis VTE Risk Assessment Done? Y/N: Yes Risk Level: Moderate
[2017-10-11 22:20] VITALS: BP_SYST 146; BP_SYST 160; BP_DIAS 76; BP_DIAS 79; PULSE 83; TEMP 36.6; TEMP 36.7; O2SAT 96; BMI 27.6
--- NOTE | 2017-10-11 23:00 | EMERGENCY ROOM VISIT NOTE ---
History Report prepared by Barak: Magaly Aviles Under the Supervision of: Dr. George Lewis M.D. First contact with patient: 16:44 Chief Complaint: REFERRED BY DOCTOR Stated Complaint: SORE ON RIGHT FOOT;DOC SENT TO ER History of Present Illness The patient is an 82 year old male who presents to the Emergency Room with a referral by a doctor. The patient states that he developed a wound on his right foot two weeks ago after removing a callus and a soft piece of skin. He notes that he is a diabetic and has had lymphedema since an accident 10 years ago. He states that he went to the [facility] walk in clinic 11 days ago and they placed him on Amoxicillin and Bactrim. The patient states that he also did salt water soaks twice a day. He notes that they did do cultures that came back as STAFF, but no MRSA. The patient states that he went back today for a reevaluation and they sent him here since it had worsened. He states that they are worried due to his risk factors. The patient states that the wound is oozing and being red. The patient complains of diarrhea earlier today and nausea last night. The patient denies streaking up his leg. The patient notes that he takes an Aspirin. Pt denies LOC, headache, fevers, chills, diaphoresis, visual changes, neck pain , chest pain, breathing difficulties, vomiting, abdominal pain, back pain, melena, hematochezia, urinary symptoms, numbness, weakness, lymphadenopathy, rash, or other complaints. Source of History: patient Onset: two weeks ago Position: foot (right) Quality: other (oozing) Timing: worsening Associated Symptoms: + nausea, + diarrhea Note: The patient denies streaking up his leg. Review of Systems See HPI for pertinent positives and negatives. A total of ten systems were reviewed and were otherwise negative. Past Medical & Surgical Medical Problems: (1) Atrial flutter (2) Cellulitis (3) Diabetes Surgical Problems: (1) H/O aortic valve replacement (2) S/P AVR (aortic valve replacement) Family History Patient reports no known family medical history. Social History Smoking Status: Never Smoker Marital Status: Housing Status: lives with significant other Occupation Status: retired Current/Historical Medications Scheduled Amoxicillin (Amoxil), 1 CAP PO TID Aspirin (Aspir-81), 1 TAB PO BID Calcium Citrate (Calcium Citrate), 500 MG PO DAILY Cholecalciferol (Vitamin D3), 1 CAP PO DAILY Diltiazem Hcl Ext Rel (Tiazac), 180 MG PO DAILY Furosemide (Lasix), 20 MG PO DAILY Levothyroxine Sodium (Synthroid), 50 MCG PO DAILYBB Metformin Hcl (Glucophage), 500 MG PO BID Multivitamin (Multivitamin), 1 TAB PO QPM Tamsulosin Hcl (Flomax), 0.4 MG PO PM [Unknown Antibiotic], PO UD Allergies Coded Allergies: Metoprolol (Verified Adverse Reaction, Mild, GI SYMPTOMS, 10/11/17) nausea Physical Exam Vital Signs Date Time Temp Pulse Resp B/P (MAP) Pulse Ox O2 Delivery O2 Flow Rate FiO2 10/11/17 20:36 146/76 10/11/17 17:49 72 146/76 93 Room Air 10/11/17 15:25 36.6 89 20 147/77 97 Room Air Physical Exam GENERAL: Awake, alert, well-appearing, in no distress HENT: Normocephalic, atraumatic. Oropharynx unremarkable. EYES: Normal conjunctiva. Sclera non-icteric. NECK: Supple. No nuchal rigidity. FROM. No JVD. RESPIRATORY: Clear to auscultation. CARDIAC: Regular rate, normal rhythm. Extremities warm and well perfused. Pulses equal. ABDOMEN: Soft, non-distended. No tenderness to palpation. No rebound or guarding. No masses. RECTAL: Deferred. MUSCULOSKELETAL: Chest examination reveals no tenderness. The back is symmetrical on inspection without obvious abnormality. There is no CVA tenderness to palpation. No joint edema. LOWER EXTREMITIES: Calves are equal size bilaterally and non-tender. 3+ edema. Warmth and erythema to the dorsal aspect of the foot. Sub-centimeter wound on the ball of the right foot. Surrounding redness. Some maceration of the skin. Some serous cloudy drainage. NEURO: Normal sensorium. No sensory or motor deficits noted. SKIN: No rash or jaundice noted. Medical Decision & Procedures ER Provider Diagnostic Interpretation: Radiology results as stated below per my review and radiologist interpretation: R FOOT MIN 3 VIEWS ROUTINE CLINICAL HISTORY: 82 years-old Male presenting with right foot infection, wound plantar surface of 1st MTP. TECHNIQUE: Frontal, oblique, and lateral views of the right foot were obtained. COMPARISON: 10/07/2017. FINDINGS: Diffuse soft tissue swelling of the right foot persists and may have increased from prior. No soft tissue emphysema is apparent. Atherosclerosis. Osteopenia. Allowing for osteopenia, no acute fracture or acute malalignment. Osteopenia limits evaluation for erosion. Allowing for this, no focal osteolysis is apparent. Specifically, no gross osseous abnormality of the first metatarsal or first metatarsophalangeal joint. Bone spur at the inferior calcaneus. IMPRESSION: 1. Allowing for osteopenia, no gross radiographic evidence of osteomyelitis. 2. Diffuse soft tissue swelling of the foot could be compatible with cellulitis. No radiographic evidence of soft tissue emphysema. Electronically signed by: Italo Negrete M.D. 10/11/2017 6:01 PM Dictated Date/Time: 10/11/2017 5:58 PM RIGHT LOWER EXTREMITY VENOUS DOPPLER CLINICAL HISTORY: Right lower extremity swelling. COMPARISON STUDY: Right lower extremity venous Doppler March 11, 2009. TECHNIQUE: Sonography of the deep venous system of the right lower extremity was performed. Compression and augmentation were evaluated. FINDINGS: The common femoral, superficial femoral and popliteal veins were compressible. Augmentation was normal. Minimal linear echogenic material along the wall of the right femoral vein was noted. Calf vessels were suboptimally assessed due to lower extremity edema. IMPRESSION: Minimal linear echogenic material along the wall of the right femoral vein which suggests minimal chronic deep venous thrombus. No sonographic evidence of acute deep venous thrombus within the right lower extremity. Electronically signed by: Mendel Shelby M.D. 10/11/2017 6:56 PM Dictated Date/Time: 10/11/2017 6:53 PM Laboratory Results 10/11/17 17:40 Red Blood Count 3.92, Mean Corpuscular Volume 93.6, Mean Corpuscular Hemoglobin 32.4, Mean Corpuscular Hemoglobin Concent 34.6, Mean Platelet Volume 10.5, Neutrophils (%) (Auto) 62.9, Lymphocytes (%) (Auto) 14.5, Monocytes (%) (Auto) 15.6, Eosinophils (%) (Auto) 6.3, Basophils (%) (Auto) 0.3, Neutrophils # (Auto ) 4.52, Lymphocytes # (Auto) 1.04, Monocytes # (Auto) 1.12, Eosinophils # (Auto ) 0.45, Basophils # (Auto) 0.02 10/11/17 17:59 Test 10/11/17 17:40 10/11/17 17:59 White Blood Count 7.18 K/uL (4.8-10.8) Red Blood Count 3.92 M/uL (4.7-6.1) Hemoglobin 12.7 g/dL (14.0-18.0) Hematocrit 36.7 % (42-52) Mean Corpuscular Volume 93.6 fL (80-100) Mean Corpuscular Hemoglobin 32.4 pg (25-34) Mean Corpuscular Hemoglobin Concent 34.6 g/dl (32-36) Platelet Count 162 K/uL (130-400) Mean Platelet Volume 10.5 fL (7.4-10.4) Neutrophils (%) (Auto) 62.9 % Lymphocytes (%) (Auto) 14.5 % Monocytes (%) (Auto) 15.6 % Eosinophils (%) (Auto) 6.3 % Basophils (%) (Auto) 0.3 % Neutrophils # (Auto) 4.52 K/uL (1.4-6.5) Lymphocytes # (Auto) 1.04 K/uL (1.2-3.4) Monocytes # (Auto) 1.12 K/uL (0.11-0.59) Eosinophils # (Auto) 0.45 K/uL (0-0.5) Basophils # (Auto) 0.02 K/uL (0-0.2) RDW Standard Deviation 48.1 fL (36.4-46.3) RDW Coefficient of Variation 14.1 % (11.5-14.5) Immature Granulocyte % (Auto) 0.4 % Immature Granulocyte # (Auto) 0.03 K/uL (0.00-0.02) Anion Gap 7.0 mmol/L (3-11) Est Creatinine Clear Calc Drug Dose 40.9 ml/min Estimated GFR () 47.7 Estimated GFR (Non- 41.1 BUN/Creatinine Ratio 16.1 (10-20) Calcium Level 8.9 mg/dl (8.5-10.1) Total Bilirubin 0.6 mg/dl (0.2-1) Direct Bilirubin 0.2 mg/dl (0-0.2) Aspartate Amino Transf (AST/SGOT) 24 U/L (15-37) Alanine Aminotransferase (ALT/SGPT) 32 U/L (12-78) Alkaline Phosphatase 81 U/L (45-117) Total Protein 6.9 gm/dl (6.4-8.2) Albumin 3.2 gm/dl (3.4-5.0) Laboratory results reviewed by me Medications Administered Medications (Trade) Dose Ordered Sig/Rubens Route Start Time Stop Time Status Last Admin Dose Admin Vancomycin HCl 1750 mg/Sodium Chloride 535 ml @ 200 mls/hr ONE STAT IV 10/11/17 17:11 10/11/17 19:51 DC 10/11/17 19:08 200 MLS/HR Piperacillin Sod/ Tazobactam Sod (Zosyn Iv) 4.5 gm NOW STAT IV 10/11/17 17:11 10/11/17 17:16 DC 10/11/17 18:08 4.5 GM ED Course 1702: The patient was evaluated in room C8. A complete history and physical exam was performed. 171: Ordered Zosyn Iv 4.5 gm IV, Vancomycin HCl 1750 mg/ Sodium Chloride 535 ml @ 200 mls/hr IV. 2: Discussed the patient's case with Dr. Grover- Hospitalist. The patient will be evaluated for further treatment and disposition. 1999: I reevaluated the patient and he is doing okay. He is still waiting for the hospitalist to see him. Medical Decision Prior records reviewed and summarized as above. Triage Nursing notes reviewed and agree them. Additional history obtained from the family. The patient's history was concerning for swelling and redness of the skin. Differential diagnosis: Etiologies such as cellulitis, DVT, necrotizing fasciitis, abscess, MRSA infection, dermatitis, drug eruption, as well as others were entertained.. Physical examination: The physical examination was consistent with cellulitis and diabetic foot infection ER treatment provided: IV vancomycin IV Zosyn On reassessment the patient felt better. Diagnostics interpreted by me: The labs revealed an unremarkable CBC and chemistry panel. Culture sent. Imaging studies: X-ray and ultrasound as above The patient has failed outpatient management of his foot infection. Consultation: A consultation was placed with the hospitalist. The case was discussed and diagnostics were reviewed. The patient was evaluated in the ER for further treatment. Medication Reconcilliation Current Medication List: was personally reviewed by me Blood Pressure Screening Patient's blood pressure: Elevated blood pressure Will be further monitored by hospitalist. Consults Time Called: 173 Consulting Physician: Dr. Grover- Hospitalist Returned Call: [phone] Discussed the patient's case with Dr. Grover- Levy. The patient will be evaluated for further treatment and disposition. Impression Primary Impression: Cellulitis of right foot Additional Impressions: Diabetic infection of right foot Diabetic foot ulcer Scribe Attestation The scribe's documentation has been prepared under my direction and personally reviewed by me in its entirety. I confirm that the note above accurately reflects all work, treatment, procedures, and medical decision making performed by me. Departure Information Dispostion Being Evaluated By Hospitalist Referrals Jacinto Mcleod MD (PCP) Patient Instructions My [facility] Problem Qualifiers
[2017-10-11 23:04] VITALS: BP 155/77; PULSE 83; TEMP 36.6; O2SAT 95
[2017-10-11] MEDS ORDERED: VANCOMYCIN CONSULT ACTIVE PRN (23:45)
[2017-10-12] MEDS: SODIUM CHLORIDE 0.9% 1000ML 1,000 ML IV SCH ×3 (00:09→23:37)
[2017-10-12] MEDS: CEFEPIME IV 1,000 MG in SYRINGE 0 ML IV SCH ×4 (00:09→23:35)
[2017-10-12] MEDS: LEVOTHYROXINE 50 MCG TAB PO SCH (05:43)
[2017-10-12 06:52] LABS: BASO % 0.3 %; BASO ABS # 0.02 K/uL (0-0.2); EOS % 6.3 %; EOS ABS # 0.43 K/uL (0-0.5); HEMATOCRIT 32.8 % (42-52); HEMOGLOBIN 11.3 g/dL (14.0-18.0); IG# 0.02 K/uL (0.00-0.02); LYMPH % 13.6 %; LYMPH ABS # 0.93 K/uL (1.2-3.4); MEAN CELL VOLUME 93.7 fL (80-100); MEAN CORPUSCULAR HEMOGLOBIN 32.3 pg (25-34); MEAN CORPUSCULAR HGB CONC 34.5 g/dl (32-36); MEAN PLATELET VOLUME 9.3 fL (7.4-10.4); MONO % 13.2 %; NEUT % 66.3 %; NEUT ABS # 4.53 K/uL (1.4-6.5); PLATELET COUNT 140 K/uL (130-400); RED CELL DISTRIBUTION WIDTH CV 13.9 % (11.5-14.5); RED CELL DISTRIBUTION WIDTH SD 47.3 fL (36.4-46.3); WHITE BLOOD COUNT 6.83 K/uL (4.8-10.8)
[2017-10-12 06:58] LABS: INR 1.1 (0.9-1.1)
[2017-10-12 07:18] VITALS: BP 150/75; PULSE 90; TEMP 36.7; O2SAT 95
[2017-10-12 07:25] LABS: ALBUMIN 2.6 gm/dl (3.4-5.0); CREATININE 1.23 mg/dl (0.60-1.40); POTASSIUM 4.5 mmol/L (3.5-5.1)
[2017-10-12 07:29] LABS: TOTAL PROTEIN 5.5 gm/dl (6.4-8.2)
[2017-10-12 08:09] LABS: HEMOGLOBIN A1C 8.8 % (4.5-5.6)
[2017-10-12] MEDS: ASPIRIN 81 MG ECTAB PO SCH ×2 (08:21→21:30)
[2017-10-12] MEDS: FUROSEMIDE 20 MG TAB PO SCH (08:22)
[2017-10-12] MEDS: DILTIAZEM HCL (TIAzac) 180 MG CAPCR PO SCH (08:22)
[2017-10-12] MEDS: LACTOBACILLUS ACIDOPHILUS (FLORANEX) TAB PO SCH ×3 (08:22→18:38)
[2017-10-12] MEDS: INSULIN ASPART 100 UNITS/ML 3 ML PEN SC SCH ×4 (08:34→21:00)
[2017-10-12] MEDS: HEPARIN SOD 5000 UNIT/0.5 ML CARP SQ SCH ×2 (08:35→21:29)
--- NOTE | 2017-10-12 08:35 | NUR ---
Left message for Antonia, Diab Educator, to come see patient.
[2017-10-12] MEDS: VANCOMYCIN IV 1,500 MG in SODIUM CHLORIDE 0.9% 500ML 500 ML IV SCH (08:55)
[2017-10-12] MEDS ORDERED: VANCOMYCIN IV 500 MG in SODIUM CHLORIDE 0.9% 250ML 250 ML IV SCH (09:00)
--- NOTE | 2017-10-12 09:14 | Progress Note ---
Progress Note Date of Service Oct 12, 2017. Progress Note ID Consult Dictated #[id number] A/P: 1. Diabetic foot infection - MSSA reported by patient -states culture done as outpt, if MSSA, could change to rocephin 2 g daily -ortho consult pending, await decision regarding Or -thank you
--- NOTE | 2017-10-12 09:30 | NUR ---
ID Note: Alert and oriented x4. IV fluids infusing per md order. IV ABX administered this am per md order. OOB independently to bathroom. Tolerating a type 2 diabetic diet, BSG AC/HS. Diabetic education consult placed this am, yet to see patient. Voiding adequate amounts of urine in urinal. 2x2 and coban dressing intact to pad of right foot. Right foot appears reddened and swollen. Baseline lymphedema to right lower extremity. Currently denies pain. Plan uncertain at this time, waiting to be seen by ortho. Will continue to monitor.
--- NOTE | 2017-10-12 09:35 | INFECT. DISEASE CONSULTATION ---
DATE OF CONSULTATION: 10/12/2017 DATE OF CONSULTATION: 10/12/2017 HISTORY OF PRESENT ILLNESS: This is an 82-year-old gentleman who was sent to the hospital by his primary care physician after he had worsening cellulitis of his right foot. He recently was seen at [facility] and he states he had an outpatient culture done which grew MSSA. I do not have sensitivities for this. He was placed on sulfa, Bactrim or amoxicillin. He does not remember, but did not have significant improvement. He states it was draining a significant amount of purulent drainage. He was able to ambulate without difficulty. He denies any fevers or chills. He did have a mildly elevated sed rate of 44. His white blood cell count is normal. His creatinine was mildly elevated upon admission, but is improved today. He has been afebrile since admission. He was placed on cefepime and vancomycin. A wound culture has a negative Gram stain so far. Blood cultures are pending. He also had an ultrasound of the leg which showed a questionable chronic DVT. He is on Eliquis as an outpatient. He denies any nausea, vomiting or diarrhea. He has no chest pain, cough or shortness of breath. His remaining review of systems is unremarkable. PAST MEDICAL HISTORY: Significant for history of Aflutter and type 2 diabetes. PAST SURGICAL HISTORY: Significant for aortic valve replacement. FAMILY HISTORY: Noncontributory. SOCIAL HISTORY: Negative for tobacco use, alcohol use or drug use. 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 ALLERGIES: HE HAS ALLERGIES TO METOPROLOL. MEDICATIONS: Include Flomax, Ecotrin, diltiazem, Lasix, subQ heparin, vancomycin, Floranex, insulin, Levothyroxine, cefepime, Tylenol, Maalox, milk of magnesia, MiraLax, Ambien, Zofran. PHYSICAL EXAMINATION: VITAL SIGNS: He is afebrile, pulse 90, respiratory rate 16, blood pressure is 150/75, oxygen saturation is 95% on room air. GENERAL: He is awake, alert and oriented x3. He is in no acute distress. HEAD, EYES, EARS, NOSE, AND THROAT: Mucous membranes are moist. Extraocular muscles are intact. HEART: Regular. LUNGS: Clear. ABDOMEN: Soft, nontender, nondistended. EXTREMITIES: There is no lower extremity edema. There is lymphedema on the right side. There is minimal erythema and warmth over the dorsal aspect of the foot. There is a dressing with dried blood and some purulent drainage from the plantar surface of the first metatarsal head. This was an area of an old callus. LABORATORY STUDIES: CBC today reveals a white blood cell count of 6.8, hemoglobin 11.3 and platelets of 140, sed rate is 44. Chemistry panel reveals a sodium of 136, potassium 4.5, chloride 104, bicarb 26, BUN 18, creatinine 1.2, glucose is 211. LFTs are normal. Lactic acid is normal. Blood cultures and wound cultures are pending. IMAGING: As above. ASSESSMENT AND PLAN: Diabetic foot ulcer was reported to MSSA. He will be placed on Rocephin and blood cultures will be followed. Orthopedic evaluation is pending. Thank you for this consultation.
--- NOTE | 2017-10-12 09:42 | Pharmacy Progress Note ---
Pharmacy Abx Initial Consult Date of Service Oct 12, 2017. Pharmacy Dosing Scope Date of Consult: 10/11/17 Consultation requested by: Dr. Landaverde Pharmacy is consulted to initiate Vancomycin IV dosing therapy, order appropriate labs and adjust drug dose/frequency. Subjective The patient is a 82 year old male admitted on Oct 11, 2017 at 21:30. Objective Height (Feet): 5 Height (Inches): 11.00 Weight (Kilograms): 89.700 Vital Signs (Past 12Hrs) Vital Signs Past 12 Hours Date Time Temp Pulse Resp B/P (MAP) Pulse Ox O2 Delivery O2 Flow Rate FiO2 10/12/17 07:18 36.7 90 16 150/75 (100) 95 Room Air 10/12/17 07:15 Room Air 10/11/17 23:25 Room Air 10/11/17 23:04 36.6 83 18 155/77 (103) 95 Room Air 10/11/17 22:20 36.6 20 146/76 Room Air 10/11/17 22:20 36.7 83 18 160/79 (106) 96 Room Air 10/11/17 22:11 36.6 72 20 146/76 93 Lab Results (24Hrs) Laboratory Tests (24 Hours) Test 10/11/17 21:52 10/12/17 06:42 C-Reactive Protein 7.26 mg/dl (0-0.29) H Erythrocyte Sedimentation Rate 44 mm/hr (0-14) H Lactic Acid Level 0.7 mmol/L (0.4-2.0) White Blood Count 6.83 K/uL (4.8-10.8) Red Blood Count 3.50 M/uL (4.7-6.1) L Hemoglobin 11.3 g/dL (14.0-18.0) L Hematocrit 32.8 % (42-52) L Mean Corpuscular Volume 93.7 fL (80-100) Mean Corpuscular Hemoglobin 32.3 pg (25-34) Mean Corpuscular Hemoglobin Concent 34.5 g/dl (32-36) Platelet Count 140 K/uL (130-400) Mean Platelet Volume 9.3 fL (7.4-10.4) Neutrophils (%) (Auto) 66.3 % Lymphocytes (%) (Auto) 13.6 % Monocytes (%) (Auto) 13.2 % Eosinophils (%) (Auto) 6.3 % Basophils (%) (Auto) 0.3 % Neutrophils # (Auto) 4.53 K/uL (1.4-6.5) Lymphocytes # (Auto) 0.93 K/uL (1.2-3.4) L Monocytes # (Auto) 0.90 K/uL (0.11-0.59) H Eosinophils # (Auto) 0.43 K/uL (0-0.5) Basophils # (Auto) 0.02 K/uL (0-0.2) Item Value Date Time Creatinine 1.23 mg/dl # 10/12/17 0642 Est Creatinine Clear Calc Drug Dose 47.6 ml/min 10/12/17 0642 Creatinine 1.53 mg/dl H 10/11/17 1759 Est Creatinine Clear Calc Drug Dose 40.9 ml/min 10/11/17 1759 Micro Results Date/Time Source Procedure Growth Status 10/11/17 21:58 Blood Blood Culture Pending Received 10/11/17 21:52 Blood Blood Culture Pending Received 10/11/17 17:59 Blood Blood Culture Pending Received 10/11/17 17:40 Blood Blood Culture Pending Received 10/11/17 17:20 Abscess Swab Gram Stain - Final Resulted 10/11/17 17:20 Abscess Swab Wound Culture Pending Resulted Risk Factors for Resistance * Antimicrobial use within the last 90 days * Failed Amoxicillin/Bactrim as an outpatient course prior to this admission Assessment & Plan Assessment 82 year old male admitted with diabetic foot infection (foot ulcer + cellulitis ) after failing outpatient course of Amoxicillin/Bactrim. Now empirically starting IV Cefepime/Vancomycin while awaiting culture results. Patient is being follow by Infectious Disease. Serum creatinine 1.53 mg/dL upon admission, and reported at 1.23 mg/dL this AM. Baseline Scr 1.0 mg/dL October 2016. Plan IV Vancomycin/Cefepime for treatment of skin and soft tissue infection - diabetic foot ulcer Vancomycin IV * Loading dose: 1750 mg (19.5 mg/kg) * Maintenance dose: 1500 mg IV (16.7 mg/kg) every 18 hours * Goal trough level for skin/soft tissue: 13 to 20 mcg/mL * Trough level ordered for 10/14/17 prior to the 1430 hours dose. Pharmacy will continue to follow and will adjust dose/frequency as necessary. Thank you.
--- NOTE | 2017-10-12 11:44 | NUR ---
Pt identified as a case find as having possible discharge needs. Spoke with Pt. He lives at home with his . He is very independent. He goes to the [facility] daily and exercises for 1-1.5 hr/day. Pt states he has no equipment at home. His is very active and can help him out at home. He is planning to return home at discharge. Uncertain at this time if Pt will require IV antibiotics at discharge. Case Management will follow.
--- NOTE | 2017-10-12 11:54 | Family Medicine Progress Note ---
Progress Note Date of Service Oct 12, 2017. Subjective Pt evaluation today including: conversation w/ patient, conversation w/ family , physical exam, chart review, lab review, review of studies, review of inpatient medication list Pain: mild RLE pain, PO Intake: adequate Voiding: no voiding problems NO acute evetns. Patient reports 1/10 pain in RLE worsened with any movement. denies pruritus. feels that overall cellulitis has shown improvement in terms of receding redness. No fevers, chills, abdominal pain, N/V. he does report watery diarrhea. Constitutional: No fever, No chills Respiratory: No shortness of breath Cardiovascular: No chest pain, No palpitations Abdomen: No pain, No nausea, No vomiting Skin: + problem reported (cellultitis (Right foot)), No itch Medications Current Inpatient Medications Medications (Trade) Dose Ordered Sig/Rubens Route Start Time Stop Time Status Last Admin Dose Admin Aspirin (Ecotrin Tab) 81 mg BID PO 10/12/17 09:00 11/11/17 08:59 10/12/17 08:21 81 MG Diltiazem HCl (TIAzac CAP) 180 mg DAILY PO 10/12/17 09:00 11/11/17 08:59 10/12/17 08:22 180 MG Furosemide (Lasix Tab) 20 mg DAILY PO 10/12/17 09:00 11/11/17 08:59 10/12/17 08:22 20 MG Levothyroxine Sodium (Synthroid Tab) 50 mcg DAILYBB PO 10/12/17 06:00 11/11/17 06:59 10/12/17 05:43 50 MCG Tamsulosin HCl (Flomax Cap) 0.4 mg PM PO 10/12/17 21:00 11/11/17 20:59 Acetaminophen (Tylenol Tab) 650 mg Q4H PRN PO 10/11/17 21:30 11/10/17 21:29 Al Hydrox/Mg Hydrox/Simethicone (Maalox Max Susp) 15 ml Q4H PRN PO 10/11/17 21:30 11/10/17 21:29 Magnesium Hydroxide (Milk Of Magnesia Susp) 30 ml Q6H PRN PO 10/11/17 21:30 11/10/17 21:29 Polyethylene (Miralax Powder Packet) 17 gm DAILY PRN PO 10/11/17 21:30 11/10/17 21:29 Zolpidem Tartrate (Ambien Tab) 5 mg HSZ PRN PO 10/11/17 21:30 11/10/17 21:29 Ondansetron HCl (Zofran Inj) 4 mg Q6H PRN IV 10/11/17 21:30 11/10/17 21:29 Heparin Sodium (Porcine) (Heparin Sq 5000 Unit/0.5ml) 5,000 unit Q12H SQ 10/12/17 09:00 11/11/17 08:59 10/12/17 08:35 5,000 UNIT Insulin Aspart (novoLOG ASPART) SLIDING SCALE If C... ACHS SC 10/12/17 07:00 11/11/17 06:59 10/12/17 08:34 7 UNITS Glucose (Glucose 40% Gel) 15-30 GRAMS 15 GRAMS... UD PRN PO 10/11/17 21:30 11/10/17 21:29 Glucose (Glucose Chew Tab) 4-8 Tablets 4 Tabl... UD PRN PO 10/11/17 21:30 11/10/17 21:29 Dextrose (Dextrose 50% 50ML Syringe) 25-50ML OF 50% DW IV FOR... UD PRN IV 10/11/17 21:30 11/10/17 21:29 Glucagon (Glucagon Inj) 1 mg UD PRN SQ 10/11/17 21:30 11/10/17 21:29 Sodium Chloride 1,000 ml @ 75 mls/hr [id number] IV 10/11/17 23:00 11/10/17 22:59 10/12/17 00:09 75 MLS/HR Lactobacillus Acidophilus (Floranex Tab) 4 tab TIDM PO 10/12/17 08:00 11/11/17 07:59 10/12/17 08:22 4 TAB Vancomycin HCl (Consult) 1 ea UD PRN N/A 10/11/17 23:45 11/10/17 23:44 Cefepime HCl 1000 mg/Syringe 11 ml @ 5.5 mls/min Q8H IV 10/12/17 00:00 10/22/17 00:00 10/12/17 08:21 5.5 MLS/MIN Vancomycin HCl 1500 mg/Sodium Chloride 530 ml @ 200 mls/hr Q18H IV 10/12/17 08:30 10/21/17 08:29 10/12/17 08:55 200 MLS/HR Objective Vital Signs Date Time Temp Pulse Resp B/P (MAP) Pulse Ox O2 Delivery O2 Flow Rate FiO2 10/12/17 07:18 36.7 90 16 150/75 (100) 95 Room Air 10/12/17 07:15 Room Air 10/11/17 23:25 Room Air 10/11/17 23:04 36.6 83 18 155/77 (103) 95 Room Air 10/11/17 22:20 36.6 20 146/76 Room Air 10/11/17 22:20 36.7 83 18 160/79 (106) 96 Room Air 10/11/17 22:11 36.6 72 20 146/76 93 10/11/17 20:36 146/76 10/11/17 17:49 72 146/76 93 Room Air 10/11/17 15:25 36.6 89 20 147/77 97 Room Air Physical Exam Notes: GENERAL: alert, well appearing, well nourished, no distress, non-toxic LUNGS: Clear to auscultation. Normal chest wall mechanics HEART: no murmurs, S1 normal and S2 normal ABDOMEN: abdomen soft, non-tender, normo-active bowel sounds, no masses, no rebound or guarding. SKIN: RLE erythema, swelling LOWER EXTREMITIES: RLE 2+ edema, RLE cellulitis, wound dressing clean dry, bandage in place NEURO EXAM: Normal sensorium, cranial nerves II-XII grossly intact Laboratory Results Results Past 24 Hours Test 10/11/17 17:40 10/11/17 17:59 10/11/17 21:52 10/12/17 06:42 Range/Units White Blood Count 7.18 6.83 4.8-10.8 K/uL Red Blood Count 3.92 3.50 4.7-6.1 M/uL Hemoglobin 12.7 11.3 14.0-18.0 g/dL Hematocrit 36.7 32.8 42-52 % Mean Corpuscular Volume 93.6 93.7 80-100 fL Mean Corpuscular Hemoglobin 32.4 32.3 25-34 pg Mean Corpuscular Hemoglobin Concent 34.6 34.5 32-36 g/dl Platelet Count 162 140 130-400 K/uL Mean Platelet Volume 10.5 9.3 7.4-10.4 fL Neutrophils (%) (Auto) 62.9 66.3 % Lymphocytes (%) (Auto) 14.5 13.6 % Monocytes (%) (Auto) 15.6 13.2 % Eosinophils (%) (Auto) 6.3 6.3 % Basophils (%) (Auto) 0.3 0.3 % Neutrophils # (Auto) 4.52 4.53 1.4-6.5 K/uL Lymphocytes # (Auto) 1.04 0.93 1.2-3.4 K/uL Monocytes # (Auto) 1.12 0.90 0.11-0.59 K/uL Eosinophils # (Auto) 0.45 0.43 0-0.5 K/uL Basophils # (Auto) 0.02 0.02 0-0.2 K/uL RDW Standard Deviation 48.1 47.3 36.4-46.3 fL RDW Coefficient of Variation 14.1 13.9 11.5-14.5 % Immature Granulocyte % (Auto) 0.4 0.3 % Immature Granulocyte # (Auto) 0.03 0.02 0.00-0.02 K/uL Sodium Level 134 136 136-145 mmol/L Potassium Level 4.5 4.5 3.5-5.1 mmol/L Chloride Level 100 104 98-107 mmol/L Carbon Dioxide Level 26 26 21-32 mmol/L Anion Gap 7.0 6.0 3-11 mmol/L Blood Urea Nitrogen 25 18 7-18 mg/dl Creatinine 1.53 1.23 0.60-1.40 mg/dl Est Creatinine Clear Calc Drug Dose 40.9 47.6 ml/min Estimated GFR () 47.7 62.1 Estimated GFR (Non- 41.1 53.6 BUN/Creatinine Ratio 16.1 14.6 10-20 Random Glucose 211 224 70-99 mg/dl Calcium Level 8.9 8.0 8.5-10.1 mg/dl Total Bilirubin 0.6 0.8 0.2-1 mg/dl Direct Bilirubin 0.2 0-0.2 mg/dl Aspartate Amino Transf (AST/SGOT) 24 17 15-37 U/L Alanine Aminotransferase (ALT/SGPT) 32 26 12-78 U/L Alkaline Phosphatase 81 68 45-117 U/L Total Protein 6.9 5.5 6.4-8.2 gm/dl Albumin 3.2 2.6 3.4-5.0 gm/dl Erythrocyte Sedimentation Rate 44 0-14 mm/hr C-Reactive Protein 7.26 0-0.29 mg/dl Prothrombin Time 11.4 9.0-12.0 SECONDS Prothromb Time International Ratio 1.1 0.9-1.1 Estimated Average Glucose 206 mg/dl Hemoglobin A1c 8.8 4.5-5.6 % Lactic Acid Level 0.7 0.4-2.0 mmol/L Magnesium Level 2.2 1.8-2.4 mg/dl Globulin 2.9 2.5-4.0 gm/dl Albumin/Globulin Ratio 0.9 0.9-2 Test 10/12/17 08:03 10/12/17 12:06 Range/Units Bedside Glucose 211 202 70-99 mg/dl Microbiology Results 10/11/17 Blood Culture, Received Pending 10/11/17 Blood Culture, Received Pending 10/11/17 Blood Culture, Received Pending 10/11/17 Blood Culture, Received Pending 10/11/17 Gram Stain - Final, Resulted 10/11/17 Wound Culture - Preliminary, Resulted Staph Species Assessment and Plan 82 yo M w/ h/o recently diagnosed T2DM, Aortic Stenosis s/p replacement, BPH, Transient Atrial flutter on Eliquis, Hypothyroidism, chronic Lymphedema of the RLE, venous stasis, presenting with RLE cellulitis secondary to wound after failure of outpatient therapy with Bactrim , Augmentin RLE Cellulitis, LE wound * clinically improving * s/p failure of outpatient antibiotic therapy with Bactrim, Augmentin * Wound Cx from clinic showed olivera-sensitive Staph, Strep, probably normal skin janette * receiving Vancomycin, Cefepime Day 2 Diabetes * recently diagnosed within last few mos * Glucose in 200's * takes Metformin 500 mg BID * Continue Insulin Sliding Scale. Switch ratio 1 u per 10g Carbs * Start Lantus 25 u qam Aortic Stenosis/HTN/ Transient Atrial Flutter * s/p Aortic Valve replacement * Continue to monitor BP * Continue Diltiazem, ASA, Lasix BPH * Continue Tamsulosin Hypothyroidism * Continue Synthroid DVT Prophylaxis * Heparin Resident Physician Supervision Note: I interviewed and examined the patient. Discussed with Dr. Armstrong and agree with findings and plan as documented in the note. Any exceptions or clarifications are listed here: None Documented By: Yang Brown foot feeling better, no new complaints otherwise. discussed abx and treatments vitals noted nad breathing unlabored foot erythema improved foot infection - improving now. ?gram negative more likely than MRSA that was resistent to bactrim. improving on cefepime and vanco DM - uncontrolled -insulins for now. lifestyle change and med management at discharge Continued [facility] stay due to: multiple IV medications needed Discharge planning: home Resident Tracking Resident Involvement: Resident Care Provided Care Provided: Adult Hospital Medicine
[2017-10-12] MEDS ORDERED: INSULIN GLARGINE SOLOSTAR 100 UNITS/ML 3 ML PEN SC ONE (14:15)
[2017-10-12 15:40] VITALS: BP 144/73; PULSE 68; TEMP 36.6; O2SAT 95
[2017-10-12 16:16] VITALS: BMI 27.6
--- NOTE | 2017-10-12 16:28 | NUR ---
DIABETES: Pt seen on consult for DM education, no comments noted. See DM network & DM teaching interventions for subjects discussed & taught, suggestions for care. Addendum: 10/12/17 at 1629 by Antonia Alejandro RN Amended: Links added.
[2017-10-12] MEDS: TAMSULOSIN HCL 0.4 MG CAP PO SCH (21:30)
[2017-10-12 23:33] VITALS: BP 134/75; PULSE 83; TEMP 36.6; O2SAT 95
--- NOTE | 2017-10-13 00:43 | ORTHOPEDIC CONSULTATION ---
DATE OF CONSULTATION: 10/12/2017 HISTORY OF PRESENT ILLNESS: This is an 82-year-old male who said he had a callus on his right foot; he was picking at a callus. He does have history of type 2 diabetes mellitus. He thinks he may have had a latent infection in his foot. It got worse over the period of weekend. The head was draining some bloody drainage yesterday. So, he was admitted to the hospital with erythema and cellulitis. Pain is mainly in his great toe, which is not severe. He said it was cultured for a methicillin-sensitive staph. He is presently on IV vancomycin. PAST MEDICAL HISTORY: Also for atrial flutter. PAST SURGICAL HISTORY: Aortic valve replacement. SOCIAL HISTORY: Nonsmoker. He is . MEDICATIONS: He came in on amoxicillin, aspirin, calcium, vitamin D, Tiazac, Lasix, Synthroid, Glucophage, multivitamin, Flomax. REVIEW OF SYSTEMS: He has not felt sick, otherwise noncontributory. PHYSICAL EXAMINATION: Demonstrates that in his right foot he has swelling around the MP joint, no severe pain with range of motion, but some pain. He has tenderness mainly on the MP joint area on the plantar aspect of his foot where he has a small open wound with no drainage at this time. It looks like there is some bloody staining from prior drainage there. The erythema goes up to about the mid foot area. Nothing proximally. He does have a significant lymphedema in that extremity, which is asymmetric to his opposite leg. He has had lymphedema stemmed from a hematoma in his leg years ago and he has had lymphedema for 10 years now in the leg. IMAGING STUDIES: Imaging of his foot demonstrates that he does have some calcification of the vessels in the foot. He has some osteopenia, diffusely about the foot. No major arthritic changes in the MP joint. No clear cut evidence of osteomyelitis. His foot otherwise is a high-arched foot with a plantar fascial spur on the lateral view. There is some very subtle calcification on the first metatarsal that could be periosteal calcification, possibly may be a blood vessel that possibly could be a sign of chronic infection. ASSESSMENT: Right foot infection, cannot clearly define whether he has osteomyelitis or not, based on plain films. An MRI is indicated to assess the depth of infection and assess joint effusion in his metatarsophalangeal joint. I could suggest an infected metatarsophalangeal joint and would definitely rule out osteomyelitis. Further treatment based on MRI will be recommended. Right now, he is on appropriate antibiotics with vancomycin. Thank you for this consultation.
[2017-10-13] MEDS: VANCOMYCIN IV 1,500 MG in SODIUM CHLORIDE 0.9% 500ML 500 ML IV SCH ×2 (01:40→20:26)
[2017-10-13] MEDS: LEVOTHYROXINE 50 MCG TAB PO SCH (05:30)
--- NOTE | 2017-10-13 05:34 | NUR ---
A: Pt requesting to have Dr. Valdez see pt and review MRI results. Charge nurse informed. Will relay to day shift.
[2017-10-13 06:48] LABS: CREATININE 1.27 mg/dl (0.60-1.40)
--- NOTE | 2017-10-13 07:01 | DIAGNOSTIC IMAGING REPORT ---
MRI OF THE RIGHT FOREFOOT WITH AND WITHOUT CONTRAST CLINICAL HISTORY: Cellulitis. Draining wound overlying the right first metatarsophalangeal joint. COMPARISON STUDY: Right foot radiographs October 11, 2017. TECHNIQUE: Utilizing 1.5 Jennifer magnet, multiplanar, multiecho imaging of the right forefoot was performed pre and postcontrast examination. Injection of 9 cc of Gadavist IV was uneventful. FINDINGS: Tarsometatarsal joints are intact. A marker was placed on the skin at site of wound. This overlies the plantar medial aspect of the right first metatarsophalangeal joint. There is an associated fluid tract with single locule of gas which extend toward the right first metatarsophalangeal joint. There are a few adjacent tiny subcutaneous fluid collections along the dorsal aspect the right first metatarsophalangeal joint that measure up to 1.5 x 0.2 cm. These demonstrate rim enhancement. There is edema within the adjacent soft tissues suggestive of cellulitis. This exam is compromised by motion artifact. There is mild increased T2 signal within the lateral sesamoid of the right great toe. T1 signal is minimally diminished within the lateral sesamoid. Otherwise, marrow signal is unremarkable. There is joint space narrowing and osteophytosis of the right first metatarsophalangeal joint. There is a small to moderate size joint effusion of the right first metatarsophalangeal joint. This may demonstrate rim enhancement. No fracture is identified. There is no suspicious marrow replacement. No additional fluid collections are identified. IMPRESSION: 1. Wound of the plantar medial aspect of the right first metatarsophalangeal joint with associated cellulitis and several tiny elongated subcutaneous rim-enhancing fluid collections which suggest small abscesses. Wound extends toward and likely to the right first metatarsophalangeal joint with a small to moderate joint effusion. These findings raise the possibility of septic arthritis. However, osteoarthritis could also result in the joint effusion. Increased fluid within the flexor tendon sheath for the right first toe which may be reactive or reflect infectious tenosynovitis. 2. Mild marrow edema within the lateral sesamoid of the right great toe with mildly diminished T1 signal. This may reflect osteitis or developing osteomyelitis of the lateral sesamoid. No additional sites of marrow edema. Electronically signed by: Mendel Shelby M.D. 10/13/2017 7:00 AM Dictated Date/Time: 10/13/2017 6:45 AM
[2017-10-13 07:17] VITALS: BP 157/77; PULSE 79; TEMP 36.7; O2SAT 97
[2017-10-13] MEDS ORDERED: INSULIN GLARGINE SOLOSTAR 100 UNITS/ML 3 ML PEN SC SCH (08:00)
--- NOTE | 2017-10-13 08:32 | Progress Note ---
Subjective Date of Service: Oct 13, 2017. Subjective s/p ortho eval and MRI with likely osteo and small abscesses, ? need for OR. remains on abx. culture with staph species, per patient outpt culture with MSSA. blood cultures negative. afebrile. Problem List Medical Problems: (1) Cellulitis of right foot Status: Acute (2) Diabetic foot ulcer Status: Acute (3) Diabetic infection of right foot Status: Acute Objective Vital Signs Date Time Temp Pulse Resp B/P (MAP) Pulse Ox O2 Delivery O2 Flow Rate FiO2 10/13/17 07:17 36.7 79 18 157/77 (103) 97 Room Air 10/13/17 07:15 Room Air 10/12/17 23:49 Room Air 10/12/17 23:33 36.6 83 22 134/75 (94) 95 Room Air 10/12/17 15:40 36.6 68 18 144/73 (96) 95 Room Air 10/12/17 15:35 Room Air Laboratory Results Last 24 Hours Test 10/12/17 12:06 10/12/17 17:11 10/12/17 20:43 10/13/17 05:50 Bedside Glucose 202 mg/dl 147 mg/dl 138 mg/dl Creatinine 1.27 mg/dl Est Creatinine Clear Calc Drug Dose 46.1 ml/min Estimated GFR () 59.7 Estimated GFR (Non- 51.5 Assessment and Plan (1) Diabetic foot ulcer Assessment & Plan: suspect osteo, await surgical plan, if any. will continue vanco for now and await final wound culture results. stop cefepime. blood cultures negative to date. will likely require course of IV abx, if MSSA would suggest changing to rocephin 2g IV daily for ease of once daily dosing. will need picc line. will need weekly cbc, cmp, esr while on abx. duration will likely depend on surgical intervention. Continued [facility] stay due to: multiple IV medications needed Discharge planning: home
[2017-10-13] MEDS: ASPIRIN 81 MG ECTAB PO SCH ×2 (09:04→20:26)
[2017-10-13] MEDS: LACTOBACILLUS ACIDOPHILUS (FLORANEX) TAB PO SCH ×3 (09:04→18:17)
[2017-10-13] MEDS: FUROSEMIDE 20 MG TAB PO SCH (09:05)
[2017-10-13] MEDS: DILTIAZEM HCL (TIAzac) 180 MG CAPCR PO SCH (09:05)
[2017-10-13] MEDS: HEPARIN SOD 5000 UNIT/0.5 ML CARP SQ SCH ×2 (09:07→19:19)
[2017-10-13] MEDS: INSULIN ASPART 100 UNITS/ML 3 ML PEN SC SCH ×4 (09:08→20:21)
--- NOTE | 2017-10-13 10:18 | NUR ---
ID Note: Alert and oriented x4. IV fluids infusing per md order. OOB independently in room. Tolerating a type 2 diabetic diet, BSG AC/HS. Voiding adequate amounts of urine in urinal. Optifoam dressing changed this am to right foot. Baseline lymphedema per patient report to right lower extremity. Hospital TEDs placed to bilateral lower extremity. Currently denies pain. Plan remains uncertain at this time. Will continue to monitor.
--- NOTE | 2017-10-13 10:19 | Progress Note ---
Orthopedic SOAP Note Subjective Date of Service: Oct 13, 2017. Reports: feeling well, pain controlled w PO medications Problem List Medical Problems: (1) Cellulitis of right foot Status: Acute (2) Diabetic foot ulcer Status: Acute (3) Diabetic infection of right foot Status: Acute Objective no change ,still swollen and scant drainage first mtpj. circulation intact Date Time Temp Pulse Resp B/P (MAP) Pulse Ox O2 Delivery O2 Flow Rate FiO2 10/13/17 07:17 36.7 79 18 157/77 (103) 97 Room Air 10/13/17 07:15 Room Air 10/12/17 23:49 Room Air 10/12/17 23:33 36.6 83 22 134/75 (94) 95 Room Air 10/12/17 15:40 36.6 68 18 144/73 (96) 95 Room Air 10/12/17 15:35 Room Air Assessment cellulitis ,infection great toe ,possible septic joint ,small fluid collection, some flexor tenosynovitis ans possible sesamoid infection,no definitive osteomyelitis,staph infection Plan have Dr London assess for possible surgical intervention,continue IV vanco.
--- NOTE | 2017-10-13 10:48 | Family Medicine Progress Note ---
Progress Note Date of Service Oct 13, 2017. Subjective Pt evaluation today including: conversation w/ patient, conversation w/ family , physical exam, chart review, lab review, review of studies, review of inpatient medication list Pain: minimal pain PO Intake: adequate Voiding: no voiding problems No acute events overnight. Patient reports minimal pain at Rt Great toe/Rt foot at rest. He feels he is improving in general. NO fevers, chills. Diarrhea has resolved per patient Medications Current Inpatient Medications Medications (Trade) Dose Ordered Sig/Rubens Route Start Time Stop Time Status Last Admin Dose Admin Aspirin (Ecotrin Tab) 81 mg BID PO 10/12/17 09:00 11/11/17 08:59 10/13/17 09:04 81 MG Diltiazem HCl (TIAzac CAP) 180 mg DAILY PO 10/12/17 09:00 11/11/17 08:59 10/13/17 09:05 180 MG Furosemide (Lasix Tab) 20 mg DAILY PO 10/12/17 09:00 11/11/17 08:59 10/13/17 09:05 20 MG Levothyroxine Sodium (Synthroid Tab) 50 mcg DAILYBB PO 10/12/17 06:00 11/11/17 06:59 10/13/17 05:30 50 MCG Tamsulosin HCl (Flomax Cap) 0.4 mg PM PO 10/12/17 21:00 11/11/17 20:59 10/12/17 21:30 0.4 MG Acetaminophen (Tylenol Tab) 650 mg Q4H PRN PO 10/11/17 21:30 11/10/17 21:29 Al Hydrox/Mg Hydrox/Simethicone (Maalox Max Susp) 15 ml Q4H PRN PO 10/11/17 21:30 11/10/17 21:29 Magnesium Hydroxide (Milk Of Magnesia Susp) 30 ml Q6H PRN PO 10/11/17 21:30 11/10/17 21:29 Polyethylene (Miralax Powder Packet) 17 gm DAILY PRN PO 10/11/17 21:30 11/10/17 21:29 Zolpidem Tartrate (Ambien Tab) 5 mg HSZ PRN PO 10/11/17 21:30 11/10/17 21:29 Ondansetron HCl (Zofran Inj) 4 mg Q6H PRN IV 10/11/17 21:30 11/10/17 21:29 Heparin Sodium (Porcine) (Heparin Sq 5000 Unit/0.5ml) 5,000 unit Q12H SQ 10/12/17 09:00 11/11/17 08:59 10/13/17 09:07 5,000 UNIT Insulin Aspart (novoLOG ASPART) SLIDING SCALE If C... ACHS SC 10/12/17 07:00 11/11/17 06:59 10/13/17 09:08 4 UNITS Glucose (Glucose 40% Gel) 15-30 GRAMS 15 GRAMS... UD PRN PO 10/11/17 21:30 11/10/17 21:29 Glucose (Glucose Chew Tab) 4-8 Tablets 4 Tabl... UD PRN PO 10/11/17 21:30 11/10/17 21:29 Dextrose (Dextrose 50% 50ML Syringe) 25-50ML OF 50% DW IV FOR... UD PRN IV 10/11/17 21:30 11/10/17 21:29 Glucagon (Glucagon Inj) 1 mg UD PRN SQ 10/11/17 21:30 11/10/17 21:29 Sodium Chloride 1,000 ml @ 75 mls/hr [id number] IV 10/11/17 23:00 11/10/17 22:59 10/12/17 23:37 75 MLS/HR Lactobacillus Acidophilus (Floranex Tab) 4 tab TIDM PO 10/12/17 08:00 11/11/17 07:59 10/13/17 09:04 4 TAB Vancomycin HCl (Consult) 1 ea UD PRN N/A 10/11/17 23:45 11/10/17 23:44 Vancomycin HCl 1500 mg/Sodium Chloride 530 ml @ 200 mls/hr Q18H IV 10/12/17 08:30 10/21/17 08:29 10/13/17 01:40 200 MLS/HR Insulin Glargine (Lantus Solostar Pen) 25 units QD@08 MN 10/13/17 08:00 11/12/17 07:59 10/13/17 09:08 25 UNITS Objective Vital Signs Date Time Temp Pulse Resp B/P (MAP) Pulse Ox O2 Delivery O2 Flow Rate FiO2 10/13/17 07:17 36.7 79 18 157/77 (103) 97 Room Air 10/13/17 07:15 Room Air 10/12/17 23:49 Room Air 10/12/17 23:33 36.6 83 22 134/75 (94) 95 Room Air 10/12/17 15:40 36.6 68 18 144/73 (96) 95 Room Air 10/12/17 15:35 Room Air Physical Exam Notes: GENERAL: alert, well appearing, well nourished, no distress, non-toxic LUNGS: Clear to auscultation. Normal chest wall mechanics HEART: no murmurs, S1 normal and S2 normal ABDOMEN: abdomen soft, non-tender, normo-active bowel sounds, no masses, no rebound or guarding. SKIN: RLE erythema, swelling( improved) LOWER EXTREMITIES: RLE 2+ edema, RLE cellulitis, wound dressing clean dry, bandage in place NEURO EXAM: Normal sensorium, cranial nerves II-XII grossly intact Laboratory Results Results Past 24 Hours Test 10/12/17 12:06 10/12/17 17:11 10/12/17 20:43 10/13/17 05:50 Range/Units Bedside Glucose 202 147 138 70-99 mg/dl Creatinine 1.27 0.60-1.40 mg/dl Est Creatinine Clear Calc Drug Dose 46.1 ml/min Estimated GFR () 59.7 Estimated GFR (Non- 51.5 Test 10/13/17 08:13 Range/Units Bedside Glucose 148 70-99 mg/dl Assessment and Plan 82 yo M w/ h/o recently diagnosed T2DM, Aortic Stenosis s/p replacement, BPH, Transient Atrial flutter on Eliquis, Hypothyroidism, chronic Lymphedema of the RLE, venous stasis, presenting with RLE cellulitis secondary to wound after failure of outpatient therapy with Bactrim , Augmentin RLE Cellulitis, LE wound * clinically improving * s/p failure of outpatient antibiotic therapy with Bactrim, Augmentin * Wound Cx from clinic showed olivera-sensitive Staph, Strep, probably normal skin janette * receiving Vancomycin * Per ID, plan to switch to Rocephin, awaiting input from Orthopedic Surgery * RLE MRI could not rule out osteomyelitis, septic joint, Await Orthopedic surgery recommendations as to whether surgical intervention needed Diabetes * recently diagnosed within last few mos * takes Metformin 500 mg BID at home, held on arrival * Glucose range: 110's to 140's * Continue Insulin Sliding Scale. Switch ratio 1 u per 10g Carbs * Continue Lantus 25 u qam * counseled on diet, lifestyle changes * plan to go back metformin and d/c insulin at discharge Aortic Stenosis/HTN/ Transient Atrial Flutter * s/p Aortic Valve replacement * Continue to monitor BP * Continue Diltiazem, ASA, Lasix BPH * Continue Tamsulosin Hypothyroidism * Continue Synthroid DVT Prophylaxis * Heparin Resident Physician Supervision Note: I interviewed and examined the patient. Discussed with Dr. Armstrong and agree with findings and plan as documented in the note. Any exceptions or clarifications are listed here: None Documented By: Yang Brown foot about the same extensive discussions on DM2, pathophys and absolutely critical role of lifestyle in control thereof. he expressed good understanding. vitals noted nad breathing unlabored no pallor or icterus diabetic foot infection w ulceration and questionable deeper infection ( osteomyelitis difficult to definitively rule out) - ceftriaxone based on prior cultures, can change if current cultures don't support that, awaiting further surgical eval and input regarding debridement or not. uncontrolled DM 2 - extensive discussions, to work on lifestyle changes. insulin management inpt. anticipate lifetyle and higher dose metformin on discharge. DVT proph - heparin SQ Continued [facility] stay due to: multiple IV medications needed Discharge planning: home Resident Tracking Resident Involvement: Resident Care Provided Care Provided: Adult Hospital Medicine
--- NOTE | 2017-10-13 11:00 | NUR ---
CWOCN: RECEIVED REQUEST FOR CONSULT, RE: CELLULITIS RIGHT FOOT/DIABETIC ULCER. PATIENT DIABETIC BUT STATES FULL SENSATION. STATES HAD CALLOUS ON FOOT WHICH HE SCRAPED OFF. FOUND RIGHT PLANTAR 1ST METATARSAL HEAD WITH OPEN WOUND, SCANT PURULENT DRAINAGE. UNABLE TO EXPRESS DRAINAGE. OPEN AREA 0.2X0.2X1CM, NO BONE FELT WITH PROBE. FILLED WITH IODOFORM, COVERED WITH OPTIFOAM. WAITING ON EVAL BY DR AKERS, ORTHOPEDICS. Addendum: 10/13/17 at 1239 by Celestina Carrion [facility].
[2017-10-13 11:39] VITALS: Ht 180.3 cm; Wt 89.7 kg
--- NOTE | 2017-10-13 11:48 | NUR ---
DIABETES: Pt seen on f/u for DM education. See DM Network & DM teaching interventions. Addendum: 10/13/17 at 1148 by Antonia Alejandro RN Amended: Links added.
--- NOTE | 2017-10-13 11:50 | NUR ---
Received notification that PT will need Rocephin 2 gm IV daily for 6 weeks. Referral faxed to [facility] to determine if PT has coverage for home IV antibiotics. Awaiting return call.
--- NOTE | 2017-10-13 11:51 | NUR ---
DIABETES Discharge Plan: See DM discharge interventions. Addendum: 10/13/17 at 1153 by Antonia Alejandro RN Amended: Links added.
--- NOTE | 2017-10-13 13:14 | NUR ---
Received call from Ana Laura at [facility]. Pt would have a $12/week copayment for IV Rocephin at home. Pt would need PICC line placed and would need to choose a home health agency. Pt is for possible OR tomorrow. Case Management will follow. Addendum: 10/13/17 at 1334 by Luz MULLINS Spoke with pt and and discussed home IV antibiotics. they are agreeable to cost and antibiotics at home. They would like referral to [facility]. Referral given to [facility] literature teacher. Pt will need PICC line ordered. Case Management will follow.
--- NOTE | 2017-10-13 13:53 | NUR ---
COURTNEY received WOCN notification for skin breakdown, at risk nutrition screen completed. Addendum: 10/13/17 at [address] Amended: Links added.
[2017-10-13] MEDS: SODIUM CHLORIDE 0.9% 1000ML 1,000 ML IV SCH (14:27)
[2017-10-13 14:51] VITALS: BP 125/61; PULSE 64; TEMP 36.4; O2SAT 97
--- NOTE | 2017-10-13 18:21 | Orthopedic Progress Note ---
Orthopedic Progress Note Date of Service Oct 13, 2017. Subjective Additional Notes: Continued foot pain and swelling. Objective Condition unchanged. Date Time Temp Pulse Resp B/P (MAP) Pulse Ox O2 Delivery O2 Flow Rate FiO2 10/13/17 15:15 Room Air 10/13/17 14:51 36.4 64 18 125/61 (82) 97 Room Air 10/13/17 07:17 36.7 79 18 157/77 (103) 97 Room Air 10/13/17 07:15 Room Air 10/12/17 23:49 Room Air 10/12/17 23:33 36.6 83 22 134/75 (94) 95 Room Air Assessment & Plan Assessment: cellulitis ,infection great toe ,possible septic joint ,small fluid collection, some flexor tenosynovitis ans possible sesamoid infection,possible osteomyelitis ,staph infection Plan: Surgical intervention in AM NPO after MN I and D foot abscess, possible resection sesamoid due to osteomyelitis,continue IV vanco.
[2017-10-13] MEDS: TAMSULOSIN HCL 0.4 MG CAP PO SCH (20:27)
[2017-10-13 23:33] VITALS: BP 129/71; PULSE 79; TEMP 36.9; O2SAT 94
[2017-10-14] VITALS (9 sets, daily range): BP systolic 113–167; BP diastolic 64–79; PULSE 81–98; TEMP 36.5–36.8; O2SAT 87–97
[2017-10-14] MEDS ORDERED: NURSING VERBAL MED ORDER ONE ×3 (01:30→23:15)
[2017-10-14] MEDS: SODIUM CHLORIDE 0.9% 1000ML 1,000 ML IV SCH ×2 (05:44→17:40)
[2017-10-14] MEDS: LEVOTHYROXINE 50 MCG TAB PO SCH (05:44)
[2017-10-14] MEDS: INSULIN ASPART 100 UNITS/ML 3 ML PEN SC SCH ×4 (05:45→20:52)
[2017-10-14 07:01] LABS: BASO % 0.7 %; BASO ABS # 0.05 K/uL (0-0.2); EOS % 6.1 %; EOS ABS # 0.47 K/uL (0-0.5); HEMATOCRIT 35.5 % (42-52); HEMOGLOBIN 12.2 g/dL (14.0-18.0); IG# 0.03 K/uL (0.00-0.02); LYMPH ABS # 1.23 K/uL (1.2-3.4); MEAN CELL VOLUME 94.2 fL (80-100); MEAN CORPUSCULAR HEMOGLOBIN 32.4 pg (25-34); MEAN CORPUSCULAR HGB CONC 34.4 g/dl (32-36); MEAN PLATELET VOLUME 9.6 fL (7.4-10.4); MONO % 14.6 %; MONO ABS # 1.12 K/uL (0.11-0.59); NEUT % 62.2 %; NEUT ABS # 4.78 K/uL (1.4-6.5); PLATELET COUNT 177 K/uL (130-400); RED CELL DISTRIBUTION WIDTH CV 13.8 % (11.5-14.5); RED CELL DISTRIBUTION WIDTH SD 47.1 fL (36.4-46.3); WHITE BLOOD COUNT 7.68 K/uL (4.8-10.8)
[2017-10-14 07:27] LABS: CALCIUM 8.2 mg/dl (8.5-10.1); CREATININE 1.15 mg/dl (0.60-1.40)
[2017-10-14] MEDS ORDERED: INSULIN GLARGINE SOLOSTAR 100 UNITS/ML 3 ML PEN SC SCH (08:00)
[2017-10-14] MEDS: LACTOBACILLUS ACIDOPHILUS (FLORANEX) TAB PO SCH ×3 (08:30→17:45)
--- NOTE | 2017-10-14 08:45 | Progress Note ---
Subjective Date of Service: Oct 14, 2017. Subjective pt wound culture with mssa and gbs. mri with osteo and small abscesses. for OR today. remains on vanco. all blood cultures negative. Problem List Medical Problems: (1) Cellulitis of right foot Status: Acute (2) Diabetic foot ulcer Status: Acute (3) Diabetic infection of right foot Status: Acute Objective Vital Signs Date Time Temp Pulse Resp B/P (MAP) Pulse Ox O2 Delivery O2 Flow Rate FiO2 10/14/17 07:20 Room Air 10/14/17 07:17 36.8 81 16 147/76 (99) 94 Room Air 10/13/17 23:33 36.9 79 18 129/71 (90) 94 Room Air 10/13/17 23:09 Room Air 10/13/17 15:15 Room Air 10/13/17 14:51 36.4 64 18 125/61 (82) 97 Room Air Laboratory Results Item Value Date Time Gram Stain - Final Resulted 10/11/17 1720 Abscess Swab Blood Culture - Preliminary Resulted 10/11/17 1740 Blood NO GROWTH TO DATE. Blood Culture - Preliminary Resulted 10/11/17 1759 Blood NO GROWTH TO DATE. Blood Culture - Preliminary Resulted 10/11/17 2152 Blood NO GROWTH TO DATE. Blood Culture - Preliminary Resulted 10/11/17 2158 Blood NO GROWTH TO DATE. Last 24 Hours Test 10/13/17 12:06 10/13/17 17:03 10/13/17 20:17 10/14/17 05:42 Bedside Glucose 122 mg/dl 95 mg/dl 118 mg/dl 92 mg/dl Test 10/14/17 06:31 White Blood Count 7.68 K/uL Red Blood Count 3.77 M/uL Hemoglobin 12.2 g/dL Hematocrit 35.5 % Mean Corpuscular Volume 94.2 fL Mean Corpuscular Hemoglobin 32.4 pg Mean Corpuscular Hemoglobin Concent 34.4 g/dl Platelet Count 177 K/uL Mean Platelet Volume 9.6 fL Neutrophils (%) (Auto) 62.2 % Lymphocytes (%) (Auto) 16.0 % Monocytes (%) (Auto) 14.6 % Eosinophils (%) (Auto) 6.1 % Basophils (%) (Auto) 0.7 % Neutrophils # (Auto) 4.78 K/uL Lymphocytes # (Auto) 1.23 K/uL Monocytes # (Auto) 1.12 K/uL Eosinophils # (Auto) 0.47 K/uL Basophils # (Auto) 0.05 K/uL RDW Standard Deviation 47.1 fL RDW Coefficient of Variation 13.8 % Immature Granulocyte % (Auto) 0.4 % Immature Granulocyte # (Auto) 0.03 K/uL Sodium Level 137 mmol/L Potassium Level 4.0 mmol/L Chloride Level 107 mmol/L Carbon Dioxide Level 27 mmol/L Anion Gap 3.0 mmol/L Blood Urea Nitrogen 18 mg/dl Creatinine 1.15 mg/dl Est Creatinine Clear Calc Drug Dose 50.9 ml/min Estimated GFR () 67.4 Estimated GFR (Non- 58.1 BUN/Creatinine Ratio 15.6 Random Glucose 91 mg/dl Calcium Level 8.2 mg/dl Assessment and Plan (1) Diabetic foot ulcer Assessment & Plan: suspect osteo, for surgery today. will change to ctx. blood cultures negative to date. will likely require course of IV abx, ctx for ease of once daily dosing. will need picc line. will need weekly cbc, cmp, esr while on abx. await OR findings. Continued [facility] stay due to: multiple IV medications needed Discharge planning: home
[2017-10-14] MEDS: DILTIAZEM HCL (TIAzac) 180 MG CAPCR PO SCH (09:00)
[2017-10-14] MEDS: ASPIRIN 81 MG ECTAB PO SCH ×2 (09:00→20:46)
[2017-10-14] MEDS: FUROSEMIDE 20 MG TAB PO SCH (09:00)
--- NOTE | 2017-10-14 09:37 | NUR ---
Reviewed chart. Pt is for the OR later today. Spoke with Ana Laura at [facility] and provided update. She has script for medication. The only information they still need is PICC line info. PT is ordered PICC line but it has not been inserted yet. Pt would need to have his dose of Rocephin on the day of discharge prior to leaving the hospital. Pt also has referral to [facility]. Will update [facility] liaison when he comes to the hospital. Case Management will follow. Addendum: 10/14/17 at 1255 by Luz MULLINS PICC line information faxed to [facility] and [facility].
[2017-10-14] MEDS ORDERED: CEFTRIAXONE SOD INJ 2,000 MG in DEXTROSE 5% 50ML 50 ML IV ONE (10:00)
--- NOTE | 2017-10-14 12:21 | Family Medicine Progress Note ---
Progress Note Date of Service Oct 14, 2017. Subjective Pt evaluation today including: conversation w/ patient, physical exam, chart review, lab review, review of studies Pain: 0/10 PO Intake: npo Voiding: no voiding problems Patient is anticipating surgery, no concerns and questions answered Once again discussed the snf disposition as well as some DM education Constitutional: No fever Eyes: No worsening of vision ENT: No hearing loss Respiratory: No cough, No sputum, No wheezing, No shortness of breath, No dyspnea on exertion Cardiovascular: No chest pain Abdomen: No pain, No nausea, No vomiting, No diarrhea, No constipation Musculoskeletal: + problem reported (infection right LE), No joint pain, No muscle pain Male : No dysuria Neurologic: No weakness, No balance problems Psychiatric: No depression symptoms Heme: No abnormal bleeding/bruising Endo: No fatigue Skin: No rash Medications Medications Administered Medications (Trade) Dose Ordered Sig/Rubens Route Start Time Stop Time Status Last Admin Dose Admin Vancomycin HCl 1750 mg/Sodium Chloride 535 ml @ 200 mls/hr ONE STAT IV 10/11/17 17:11 10/11/17 19:51 DC 10/11/17 19:08 200 MLS/HR Piperacillin Sod/ Tazobactam Sod (Zosyn Iv) 4.5 gm NOW STAT IV 10/11/17 17:11 10/11/17 17:16 DC 10/11/17 18:08 4.5 GM Aspirin (Ecotrin Tab) 81 mg BID PO 10/12/17 09:00 11/11/17 08:59 10/13/17 20:26 81 MG Diltiazem HCl (TIAzac CAP) 180 mg DAILY PO 10/12/17 09:00 11/11/17 08:59 10/13/17 09:05 180 MG Furosemide (Lasix Tab) 20 mg DAILY PO 10/12/17 09:00 11/11/17 08:59 10/13/17 09:05 20 MG Levothyroxine Sodium (Synthroid Tab) 50 mcg DAILYBB PO 10/12/17 06:00 11/11/17 06:59 10/13/17 05:30 50 MCG Tamsulosin HCl (Flomax Cap) 0.4 mg PM PO 10/12/17 21:00 11/11/17 20:59 10/13/17 20:27 0.4 MG Heparin Sodium (Porcine) (Heparin Sq 5000 Unit/0.5ml) 5,000 unit Q12H SQ 10/12/17 09:00 11/11/17 08:59 Future Hold 10/13/17 09:07 5,000 UNIT Insulin Aspart (novoLOG ASPART) SLIDING SCALE If C... ACHS SC 10/12/17 07:00 10/14/17 01:32 DC 10/13/17 13:04 3 UNITS Sodium Chloride 1,000 ml @ 75 mls/hr [id number] IV 10/11/17 23:00 11/10/17 22:59 10/14/17 05:44 75 MLS/HR Lactobacillus Acidophilus (Floranex Tab) 4 tab TIDM PO 10/12/17 08:00 11/11/17 07:59 10/13/17 18:17 4 TAB Cefepime HCl 1000 mg/Syringe 11 ml @ 5.5 mls/min Q8H IV 10/12/17 00:00 10/13/17 08:32 DC 10/12/17 23:35 5.5 MLS/MIN Vancomycin HCl 1500 mg/Sodium Chloride 530 ml @ 200 mls/hr Q18H IV 10/12/17 08:30 10/14/17 09:14 DC 10/13/17 20:26 200 MLS/HR Insulin Glargine (Lantus Solostar Pen) 25 units QD@08 MI 10/13/17 08:00 10/14/17 06:41 DC 10/13/17 09:08 25 UNITS Insulin Glargine (Lantus Solostar Pen) 25 units 1415 ONCE MI 10/12/17 14:15 10/12/17 14:16 DC 10/12/17 15:10 25 UNITS Ceftriaxone Sodium 2000 mg/ Dextrose 70 ml @ 100 mls/hr 1000 ONCE IV 10/14/17 10:00 10/14/17 10:41 DC 10/14/17 10:42 100 MLS/HR Objective Vital Signs Date Time Temp Pulse Resp B/P (MAP) Pulse Ox O2 Delivery O2 Flow Rate FiO2 10/14/17 07:20 Room Air 10/14/17 07:17 36.8 81 16 147/76 (99) 94 Room Air 10/13/17 23:33 36.9 79 18 129/71 (90) 94 Room Air 10/13/17 23:09 Room Air 10/13/17 15:15 Room Air 10/13/17 14:51 36.4 64 18 125/61 (82) 97 Room Air Physical Exam General Appearance: no apparent distress Eyes: normal inspection ENT: normal ENT inspection Neck: supple Respiratory/Chest: normal breath sounds, no respiratory distress, no accessory muscle use Cardiovascular: regular rate, rhythm, + systolic murmur (3/6 BL) Abdomen: normal bowel sounds, non tender, soft Extremities: non-tender, + pedal edema (right LE BL), + pertinent finding ( dressing on right foot) Neurologic/Psychiatric: alert, normal mood/affect, oriented x 3 Skin: normal color, warm/dry, no rash Lymphatic: no adenopathy Laboratory Results Results Past 24 Hours Test 10/13/17 17:03 10/13/17 20:17 10/14/17 05:42 10/14/17 06:31 Range/Units Bedside Glucose 95 118 92 70-99 mg/dl White Blood Count 7.68 4.8-10.8 K/uL Red Blood Count 3.77 4.7-6.1 M/uL Hemoglobin 12.2 14.0-18.0 g/dL Hematocrit 35.5 42-52 % Mean Corpuscular Volume 94.2 80-100 fL Mean Corpuscular Hemoglobin 32.4 25-34 pg Mean Corpuscular Hemoglobin Concent 34.4 32-36 g/dl Platelet Count 177 130-400 K/uL Mean Platelet Volume 9.6 7.4-10.4 fL Neutrophils (%) (Auto) 62.2 % Lymphocytes (%) (Auto) 16.0 % Monocytes (%) (Auto) 14.6 % Eosinophils (%) (Auto) 6.1 % Basophils (%) (Auto) 0.7 % Neutrophils # (Auto) 4.78 1.4-6.5 K/uL Lymphocytes # (Auto) 1.23 1.2-3.4 K/uL Monocytes # (Auto) 1.12 0.11-0.59 K/uL Eosinophils # (Auto) 0.47 0-0.5 K/uL Basophils # (Auto) 0.05 0-0.2 K/uL RDW Standard Deviation 47.1 36.4-46.3 fL RDW Coefficient of Variation 13.8 11.5-14.5 % Immature Granulocyte % (Auto) 0.4 % Immature Granulocyte # (Auto) 0.03 0.00-0.02 K/uL Sodium Level 137 136-145 mmol/L Potassium Level 4.0 3.5-5.1 mmol/L Chloride Level 107 98-107 mmol/L Carbon Dioxide Level 27 21-32 mmol/L Anion Gap 3.0 3-11 mmol/L Blood Urea Nitrogen 18 7-18 mg/dl Creatinine 1.15 0.60-1.40 mg/dl Est Creatinine Clear Calc Drug Dose 50.9 ml/min Estimated GFR () 67.4 Estimated GFR (Non- 58.1 BUN/Creatinine Ratio 15.6 10-20 Random Glucose 91 70-99 mg/dl Calcium Level 8.2 8.5-10.1 mg/dl Assessment and Plan 82 yo M w/ h/o recently diagnosed T2DM, Aortic Stenosis s/p replacement, BPH, Hypothyroidism, venous stasis, presenting with RLE cellulitis secondary to wound after failure of outpatient therapy with Bactrim , Augmentin RLE cellulitis pending I&D, possible osteomyelitis - patient is currently NPO for surgery later this morning - the wound culture reveals olivera sensitive Staph --> transitioned to Rocephin - Plan for IV abx in the outpatient setting, CM aware and PICC consent is signed - follow CBC Diabetes II- poorly controlled - recently had an increase of his Metformin to 500 mg bid - in house Lantus with ISS - Lantus held this AM for NPO status and plan to restart at 20 units tomorrow am as control reflected as too tight when reviewing yesterdays sugars - no change in ISS at this time - continue to educate on diet and lifestyle changes, DM educator consult Aortic Stenosis/HTN/ Transient Atrial Flutter - Continue ASA 81 mg, Diltiazem 180 mg daily and Lasix 20 mg daily - Stable - Patient is NOT on Eliquis BPH -no signs of urinary retention - bladder scan prn - Continue Tamsulosin 0.4 mg HS Hypothyroidism - continue Levothyroxine 50 mcg daily - plan for a repeat TSH in 6 weeks as this was recently drawn with PCP during active infection and TSH may not be a true reflection DVT Prophylaxis - heparin HELD this am for surgery - SCD Dispo: plan for Home health with IV Abx Resident Physician Supervision Note: I interviewed and examined the patient. Discussed with Dr. Vargas and agree with findings and plan as documented in the note. Any exceptions or clarifications are listed here: None Documented By: aYng Brown for OR today no new complaints motivated for lifestyle change w DM vitals noted nad breathing unlabored no pallor or icterus DM foot infection - concern for osteo - OR today - ceftriaxone. DM2 - uncontrolled -insulins helping now, anticipate significant lifestyle change otherwise as above Continued [facility] stay due to: other Discharge planning: home with IV medication
--- NOTE | 2017-10-14 12:46 | NUR ---
The patient has demonstrated progress toward goals and readiness for discharge as demonstrated by: Patient is alert and oriented. IVF infusing per MD order. Patient resting in bed, repositioning self independently. Patient denied any pain. Patient voiding in urinal. Patient NPO at this time. Discharge plan uncertain at this time.
[2017-10-14] MEDS ORDERED: VANCOMYCIN TROUGH ONE (14:00)
[2017-10-14] MEDS ORDERED: LIDOCAINE HCL 2% 2 ML VIAL (20MG/ML) ONE ×2 (14:10→16:02)
[2017-10-14] MEDS ORDERED: PROPOFOL IV EMULSION 10 MG/ML 20 ML VIAL IV ONE ×2 (14:10→16:02)
[2017-10-14] MEDS ORDERED: FENTANYL CITRATE INJ 50 MCG/1 ML 2 ML VIAL ONE ×3 (14:10→17:49)
[2017-10-14] MEDS ORDERED: DEXAMETHASONE SOD INJ 4 MG/ML VIAL ONE (16:02)
[2017-10-14] MEDS ORDERED: ONDANSETRON INJ 2 MG/ML 2 ML VIAL ONE (16:02)
[2017-10-14] MEDS ORDERED: BUPIVACAINE 0.5 % 5 MG/1 ML MPF 30ML VIAL ONE (16:07)
[2017-10-14] MEDS ORDERED: BACITRACIN 50000 UNIT VIAL ONE (16:07)
[2017-10-14] MEDS ORDERED: ONDANSETRON INJ 2 MG/ML 2 ML VIAL IV PRN (17:00)
[2017-10-14] MEDS ORDERED: FENTANYL CITRATE INJ 50 MCG/1 ML 2 ML VIAL IV PRN (17:00)
[2017-10-14] MEDS ORDERED: EpHEDrine SULFATE INJ 50 MG/ML AMP IV PRN (17:00)
[2017-10-14] MEDS ORDERED: ATROPINE SULFATE 0.1 MG/ML 5ML SYR IV PRN (17:00)
--- NOTE | 2017-10-14 17:14 | History & Physical Bridge Note ---
H&P Re-Evaluation Bridge Note: I have examined the patient, reviewed the History & Physical and in the interval since the performance of the History & Physical I have noted the following changes of clinical significance: Will require Incision and drainage abscess right 1st MTP region.
[2017-10-14] MEDS ORDERED: SUCCINYLCHOLINE 100MG/5ML SYR IV ONE (17:31)
[2017-10-14] MEDS ORDERED: PHENYLEPHRINE 100MCG/ML 5ML SYR ONE (17:31)
[2017-10-14] MEDS ORDERED: PHENYLEPHRINE HCL INJ 10 MG/ML VIAL ONE (18:19)
--- NOTE | 2017-10-14 19:01 | Anesthesiology Progress Note ---
Anesthesia Post Op Note Date & Time Oct 14, 2017 at 19:01 Vital Signs Pain Intensity: 0 Vital Signs Past 12 Hours Date Time Temp Pulse Resp B/P (MAP) Pulse Ox O2 Delivery O2 Flow Rate FiO2 10/14/17 18:38 36.6 94 20 148/85 100 Oxymask 10 10/14/17 15:56 141/76 (97) 10/14/17 15:20 36.6 87 16 167/79 (108) 97 Room Air 10/14/17 11:50 Room Air 10/14/17 07:20 Room Air 10/14/17 07:17 36.8 81 16 147/76 (99) 94 Room Air Notes Mental Status: alert / awake / arousable, participated in evaluation Pt Amnestic to Procedure: Yes Nausea / Vomiting: adequately controlled Pain: adequately controlled Airway Patency, RR, SpO2: stable & adequate BP & HR: stable & adequate Hydration State: stable & adequate Anesthetic Complications: no major complications apparent
--- NOTE | 2017-10-14 19:17 | [facility] Post Operative Brief Note ---
Immediate Operative Summary Operative Date Oct 14, 2017. Pre-Operative Diagnosis Right foot osteomyelitis tibial sesamoid, Abscess plantar foot, Abscess Dorsal foot, Tenosynovitis Extensor Hallucis Longus Tendon Post-Operative Diagnosis Right foot osteomyelitis tibial sesamoid, Abscess plantar foot, Abscess Dorsal foot, Tenosynovitis Extensor Hallucis Longus Tendon, Septic Arthritis First Metarsophalangeal Joint, Ssnovitis 1st MTP joint Procedure(s) Performed Incision and Drainage Right Foot Plantar Abscess; Evacuation abscess of dorsal foot, 1st metatarsophalangeal joint Capsulotomy with irrigation and debridement, Synovectomy right first metatarsophalangeal joint, Tenosynovectomy extensor hallucis longus Tendon, Excision Tibial Sesamoid Surgeon Dr. Dustin London Manager Social Media Surgeon(s) NA Estimated Blood Loss 3ml Findings See dict Specimens Micro #1: Right first toe abscess-gram stain, culture and sensitivity, anaerobic, aerobic Tissue for pathology #A:Medial sesamoid Drains 1/2" iodoform gauze x 2 Anesthesia GLMA w/ ankle block Complication(s) None Disposition Recovery Room / PACU
--- NOTE | 2017-10-14 19:51 | DIAGNOSTIC IMAGING REPORT ---
R FOOT MIN 3 VIEWS ROUTINE CLINICAL HISTORY: post-op COMPARISON: 10/11/2017 DISCUSSION: Operative changes consistent with resection of the sesamoids adjacent to the first metatarsophalangeal joint. Soft tissue postoperative edematous change. Clinical developing osteopenia lateral margin distal first metatarsal. Expected soft tissue postoperative change IMPRESSION: 1. Postoperative changes described. 2. Apparent interval resection of the sesamoids adjacent to the first metatarsophalangeal joint. 3. Potential developing osteopenia versus ostial lysis lateral margin distal first metatarsal The above report was generated using voice recognition software. It may contain grammatical, syntax or spelling errors. Electronically signed by: Ortiz Dunbar M.D. 10/14/2017 7:50 PM Dictated Date/Time: 10/14/2017 7:48 PM
[2017-10-14] MEDS: TAMSULOSIN HCL 0.4 MG CAP PO SCH (20:46)
--- NOTE | 2017-10-14 21:08 | OPERATIVE REPORT ---
DATE OF OPERATION: 10/14/2017 PREOPERATIVE DIAGNOSES: 1. Right foot abscess of the plantar foot. 2. Abscess of the dorsal foot. 3. Osteomyelitis of the tibial sesamoid. 4. Tenosynovitis of the extensor hallucis longus tendon. POSTOPERATIVE DIAGNOSES: 1. 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 2. Abscess of the plantar foot. 3. Abscess of the dorsal foot. 4. Tenosynovitis of the extensor hallucis longus tendon. 5. Septic arthritis of first metatarsophalangeal joint. 6. Synovitis of first metatarsophalangeal joint. PROCEDURES: 1. Right foot incision and drainage, plantar abscess. 2. Evacuation of abscess of the dorsal foot. 3. Excision of the tibial sesamoid. 4. First metatarsophalangeal joint capsulotomy with irrigation and debridement. 5. Tenosynovectomy of the extensor hallucis longus tendon. 6. Synovectomy of the first metatarsophalangeal joint. SURGEON: Dr. London. [facility] STORAGE ARCHITECT: None. ANESTHESIA: General LMA with ankle block. SPECIMENS: 1. Aerobic, anaerobic and Gram stain from the plantar medial abscess. 2. Tibial sesamoid for pathology. DRAINS: Half-inch iodoform gauze x2. COMPLICATIONS: None. BLOOD LOSS: 3 mL. PERTINENT HISTORY: This is an 82-year-old gentleman who had complaints of cellulitis for his right foot. He had failed outpatient therapy under the care of Dr. Jacinto Mcleod. He noted the callus on the foot 2 weeks prior to admission and then he noted pain and swelling of his great toe. He was taking sulfa and amoxicillin as an outpatient. We began having swelling, erythema, tenderness and discharge from the plantar callus of the first metatarsophalangeal region of his right foot. He was admitted to the hospital and the medicine service and orthopedics was then consulted. The patient has already had methicillin-sensitive staph aureus and eventually an MRI was performed which demonstrated likely osteomyelitis of the tibial sesamoid with abscess formation of the plantar medial foot and the dorsal foot in 2 separate locations. The patient was then scheduled for surgery as indicated. All potential risks, benefits, complications, alternatives, rehab, potential for incomplete relief of symptoms, need for further surgery, DVT, PE, , persistent pain, swelling, scarring, weakness, neurovascular injury, wound complications, possible need for further amputation discussed with the patient. The patient decided to proceed with the procedure as indicated. DESCRIPTION OF PROCEDURE: The patient was taken to the operative suite and placed supine on the operating room table. I reviewed the consent and identification of proper operative site, the patient was then anesthetized, LMA was placed. The right lower extremity was then sterilely prepped and draped in usual fashion, elevated and an ankle block was performed with 30 mL of 0.5% Marcaine plain. That was completed, limb was then partially exsanguinated from the hindfoot proximally and then a 4-inch Esmarch bandage was applied over sterile surgical towel at the level of the ankle. Next, a 15 blade scalpel was then used to make an incision in the plantar medial aspect of the right foot at the site of the ulceration and callus. This incision was then deepened through the subcutaneous tissue to the level of the flexor tendons. There was noted to be an abscess formation and this abscess fluid was then sampled and then sent for aerobic, anaerobic and Gram stain evaluation. Next, stent rakes were then placed into the incision revealing the sesamoid. The sesamoid had at some point fractured and a 15 blade scalpel was then pressed into the bone was noted to be excessively soft consistent with osteomyelitis. The sesamoid bone was in its entirety and was compromised and the tibial sesamoid was then sharply resected with a 15 blade scalpel and sent for pathology evaluation. Next, the soft tissues were then carefully debrided with a rongeur until a more healthy appearing tissue was encountered. Next, attention was then directed toward the dorsum of the foot at the site of the noted abscess on the MRI over the dorsal aspect of the first metatarsophalangeal region adjacent to the extensor hallucis longus. A 15 blade scalpel incision was made. This incision was then carefully deepened through subcutaneous tissue. Meticulous hemostasis was achieved with electrocautery. Full thickness skin flaps were developed and the extensor hallucis longus had appearance of significant hypertrophic tenosynovitis. Tenosynovectomy was then performed with a rongeur of the extensor hallucis longus. A thin serous fluid was surrounding the extensor tendon consistent with infectious tenosynovitis. Next, the 15 blade scalpel was then used to perform a capsulotomy of the first metatarsophalangeal joint, noting thin serous fluid consistent with early septic arthritis. There was noted to be hypertrophic synovium and a synovectomy was then performed with a rongeur. The joint was then irrigated with pulsatile lavage with bacitracin. Next, the plantar medial incision was then irrigated with pulsatile lavage with bacitracin. Three liters total fluid volume was used to irrigate the 2 separate incisions. Next, 1/2 iodoform gauze was then packed in the plantar and in the dorsal incisions separately extending from separate small stab incisions more proximally in the foot. Next, the incisions were then closed with full thickness 4-0 nylon sutures. Next, the sterile compressive dressing consisting of Xeroform gauze, sterile 4 x 4's, ABD pads, 4 inch Kerlix roll and Coban was applied to the right foot. The tourniquet was released. The patient was awakened and taken to recovery in stable condition. I attest to the content of the Intraoperative Record and any orders documented therein. Any exception s are noted below.
[2017-10-15] MEDS: SODIUM CHLORIDE 0.9% 1000ML 1,000 ML IV SCH ×2 (01:51→15:56)
[2017-10-15 03:59] VITALS: BP 144/76; PULSE 102; TEMP 36.6; O2SAT 95
[2017-10-15] MEDS: LEVOTHYROXINE 50 MCG TAB PO SCH (05:49)
[2017-10-15 07:25] VITALS: BP 144/75; PULSE 96; TEMP 36.7; O2SAT 94
[2017-10-15] MEDS: ASPIRIN 81 MG ECTAB PO SCH ×2 (08:45→20:45)
[2017-10-15] MEDS: LACTOBACILLUS ACIDOPHILUS (FLORANEX) TAB PO SCH ×3 (08:45→18:38)
[2017-10-15] MEDS: FUROSEMIDE 20 MG TAB PO SCH (08:45)
[2017-10-15] MEDS: DILTIAZEM HCL (TIAzac) 180 MG CAPCR PO SCH (08:45)
[2017-10-15] MEDS: INSULIN ASPART 100 UNITS/ML 3 ML PEN SC SCH ×4 (08:50→20:47)
[2017-10-15] MEDS: INSULIN GLARGINE SOLOSTAR 100 UNITS/ML 3 ML PEN SC SCH (08:51)
[2017-10-15] MEDS: CEFTRIAXONE SOD INJ 2,000 MG in DEXTROSE 5% 50ML 50 ML IV SCH (08:51)
--- NOTE | 2017-10-15 09:10 | Orthopedic Progress Note ---
Orthopedic Progress Note Date of Service Oct 15, 2017. Subjective Post OP Day: 1 Reports: feeling well, pain controlled w PO medications, Denies: complaints, chest pain, SOB, nausea / vomiting, light headedness, calf pain Objective calves soft nontender, N/V intact, capillary refill less than 2 sec., dressing C /D/I, A&O x3, toes mobile Date Time Temp Pulse Resp B/P (MAP) Pulse Ox O2 Delivery O2 Flow Rate FiO2 10/15/17 07:35 Room Air 10/15/17 07:25 36.7 96 19 144/75 (98) 94 Room Air 10/15/17 03:59 36.6 102 20 144/76 (98) 95 Room Air 10/15/17 00:00 Room Air 10/14/17 22:30 36.7 93 17 116/64 (81) 95 Room Air 10/14/17 21:40 36.5 98 17 113/66 (82) 97 Room Air 10/14/17 21:39 87 Room Air 10/14/17 20:33 36.5 94 17 114/70 (85) 97 Nasal Cannula 2.0 10/14/17 20:06 36.5 94 17 157/78 (104) 97 Nasal Cannula 2.0 10/14/17 19:35 Oxymask 10/14/17 19:35 36.5 90 18 149/77 (101) 94 Oxymask 2.0 10/14/17 19:35 Oxymask 10/14/17 19:25 128/72 10/14/17 19:22 82 21 10/14/17 19:22 85 21 99 10/14/17 19:20 132/83 10/14/17 19:18 37.5 10/14/17 19:17 88 18 10/14/17 19:17 87 18 100 10/14/17 19:15 133/86 10/14/17 19:12 82 20 98 10/14/17 19:12 81 20 10/14/17 19:11 80 24 10/14/17 19:11 80 24 99 10/14/17 19:10 141/73 10/14/17 19:06 84 23 10/14/17 19:06 81 23 92 10/14/17 19:05 149/69 10/14/17 19:01 87 23 10/14/17 19:01 87 23 98 10/14/17 19:00 137/79 10/14/17 18:58 89 22 100 10/14/17 18:58 91 22 10/14/17 18:55 140/80 10/14/17 18:53 85 20 100 10/14/17 18:53 85 20 10/14/17 18:50 152/78 10/14/17 18:48 87 20 100 10/14/17 18:48 89 20 10/14/17 18:45 166/84 10/14/17 18:43 87 16 100 10/14/17 18:43 88 16 10/14/17 18:40 164/90 10/14/17 18:38 92 14 10/14/17 18:38 91 14 148/85 98 10/14/17 18:38 36.6 94 20 148/85 100 Oxymask 10 10/14/17 15:56 141/76 (97) 10/14/17 15:20 36.6 87 16 167/79 (108) 97 Room Air 10/14/17 11:50 Room Air Assessment & Plan Assessment: POD #1, Incision and Drainage Right Foot Plantar Abscess; Evacuation abscess of dorsal foot, 1st metatarsophalangeal joint Capsulotomy with irrigation and debridement, Synovectomy right first metatarsophalangeal joint, Tenosynovectomy extensor hallucis longus Tendon, Excision Tibial Sesamoid Plan: Disposition Home w HH likely with home antibx Await operative gram stain and cultures, recent labs growing staph As per ID, currently on Rocephin DVT proph- ASA As per medicine PT/ OT NWB for 3-4 weeks
--- NOTE | 2017-10-15 09:58 | NUR ---
ID note: Pt. is OOB to chair with assistance of one, a walker and a PO shoe. He is NWRLE. IV fluid and intermittent IV antibiotics per orders. He will go home with HH and IV antibiotics. Discharge is unknown at this time. Call wesley within reach.
--- NOTE | 2017-10-15 12:34 | NUR ---
Case Management Note- Plan remains for patient to return home with [facility] and [facility] for IV abx. Per Dr. Brown, possible discharge home today pending PT/OT evals. Notified Carissa at [facility] IV [facility]usions. She is requesting to know discharge plan by 3:30-4:00pm. Dr. Brown aware.
--- NOTE | 2017-10-15 14:50 | Family Medicine Progress Note ---
Progress Note Date of Service Oct 15, 2017. Subjective Pt evaluation today including: conversation w/ patient, physical exam, chart review, lab review Pain: well-controlled Voiding: no voiding problems 82 yo M w/ h/o recently diagnosed T2DM, Aortic Stenosis s/p replacement, BPH, Hypothyroidism, venous stasis, presenting with RLE cellulitis secondary to wound after failure of outpatient therapy with Bactrim , Augmentin. Was found to have osteoarthritis in the right great toe and underwent I&D of the foot abscess with first metatarsophalangeal capsulotomy, irrigation and debridement and Synovectomy of right first metatarsophalangeal joint, Tenosynovectomy extensor hallucis longus Tendon and Excision Tibial Sesamoid. Tolerated the procedure well and states that the pain is well-controlled. Denies any fevers or chills or worsening pain in the right foot. Constitutional: No fever, No chills Eyes: No worsening of vision ENT: No hearing loss Respiratory: No cough, No sputum Cardiovascular: No chest pain Abdomen: No pain, No nausea Musculoskeletal: + joint pain (right foot pain ) Male : No dysuria, No urinary frequency Neurologic: No memory loss Psychiatric: No depression symptoms Heme: No abnormal bleeding/bruising Medications Current Inpatient Medications Medications (Trade) Dose Ordered Sig/Rubens Route Start Time Stop Time Status Last Admin Dose Admin Aspirin (Ecotrin Tab) 81 mg BID PO 10/12/17 09:00 11/11/17 08:59 10/15/17 08:45 81 MG Diltiazem HCl (TIAzac CAP) 180 mg DAILY PO 10/12/17 09:00 11/11/17 08:59 10/15/17 08:45 180 MG Furosemide (Lasix Tab) 20 mg DAILY PO 10/12/17 09:00 11/11/17 08:59 10/15/17 08:45 20 MG Levothyroxine Sodium (Synthroid Tab) 50 mcg DAILYBB PO 10/12/17 06:00 11/11/17 06:59 10/15/17 05:49 50 MCG Tamsulosin HCl (Flomax Cap) 0.4 mg PM PO 10/12/17 21:00 11/11/17 20:59 10/14/17 20:46 0.4 MG Acetaminophen (Tylenol Tab) 650 mg Q4H PRN PO 10/11/17 21:30 11/10/17 21:29 10/15/17 07:38 650 MG Al Hydrox/Mg Hydrox/Simethicone (Maalox Max Susp) 15 ml Q4H PRN PO 10/11/17 21:30 11/10/17 21:29 Magnesium Hydroxide (Milk Of Magnesia Susp) 30 ml Q6H PRN PO 10/11/17 21:30 11/10/17 21:29 Polyethylene (Miralax Powder Packet) 17 gm DAILY PRN PO 10/11/17 21:30 11/10/17 21:29 Zolpidem Tartrate (Ambien Tab) 5 mg HSZ PRN PO 10/11/17 21:30 11/10/17 21:29 Ondansetron HCl (Zofran Inj) 4 mg Q6H PRN IV 10/11/17 21:30 11/10/17 21:29 Heparin Sodium (Porcine) (Heparin Sq 5000 Unit/0.5ml) 5,000 unit Q12H SQ 10/12/17 09:00 11/11/17 08:59 Future Hold 10/13/17 09:07 5,000 UNIT Glucose (Glucose 40% Gel) 15-30 GRAMS 15 GRAMS... UD PRN PO 10/11/17 21:30 11/10/17 21:29 Glucose (Glucose Chew Tab) 4-8 Tablets 4 Tabl... UD PRN PO 10/11/17 21:30 11/10/17 21:29 Dextrose (Dextrose 50% 50ML Syringe) 25-50ML OF 50% DW IV FOR... UD PRN IV 10/11/17 21:30 11/10/17 21:29 Glucagon (Glucagon Inj) 1 mg UD PRN SQ 10/11/17 21:30 11/10/17 21:29 Lactobacillus Acidophilus (Floranex Tab) 4 tab TIDM PO 10/12/17 08:00 11/11/17 07:59 10/15/17 12:49 4 TAB Insulin Glargine (Lantus Solostar Pen) 20 units QD@08 SC 10/15/17 08:00 11/12/17 07:59 10/15/17 08:51 20 UNITS Ceftriaxone Sodium 2000 mg/ Dextrose 70 ml @ 100 mls/hr DAILY IV 10/15/17 09:00 11/26/17 08:59 10/15/17 08:51 100 MLS/HR Insulin Aspart (novoLOG ASPART) SLIDING SCALE If C... ACHS SC 10/14/17 21:00 11/13/17 20:59 10/15/17 12:53 8 UNITS Sodium Chloride 1,000 ml @ 75 mls/hr [id number] IV 10/15/17 01:45 11/14/17 01:44 10/15/17 01:51 75 MLS/HR Objective Vital Signs Date Time Temp Pulse Resp B/P (MAP) Pulse Ox O2 Delivery O2 Flow Rate FiO2 10/15/17 07:35 Room Air 10/15/17 07:25 36.7 96 19 144/75 (98) 94 Room Air 10/15/17 03:59 36.6 102 20 144/76 (98) 95 Room Air 10/15/17 00:00 Room Air 10/14/17 22:30 36.7 93 17 116/64 (81) 95 Room Air 10/14/17 21:40 36.5 98 17 113/66 (82) 97 Room Air 10/14/17 21:39 87 Room Air 10/14/17 20:33 36.5 94 17 114/70 (85) 97 Nasal Cannula 2.0 10/14/17 20:06 36.5 94 17 157/78 (104) 97 Nasal Cannula 2.0 10/14/17 19:35 Oxymask 10/14/17 19:35 36.5 90 18 149/77 (101) 94 Oxymask 2.0 10/14/17 19:35 Oxymask 10/14/17 19:25 128/72 10/14/17 19:22 82 21 10/14/17 19:22 85 21 99 10/14/17 19:20 132/83 10/14/17 19:18 37.5 10/14/17 19:17 88 18 10/14/17 19:17 87 18 100 10/14/17 19:15 133/86 10/14/17 19:12 82 20 98 10/14/17 19:12 81 20 10/14/17 19:11 80 24 10/14/17 19:11 80 24 99 10/14/17 19:10 141/73 10/14/17 19:06 84 23 10/14/17 19:06 81 23 92 10/14/17 19:05 149/69 10/14/17 19:01 87 23 10/14/17 19:01 87 23 98 10/14/17 19:00 137/79 10/14/17 18:58 89 22 100 10/14/17 18:58 91 22 10/14/17 18:55 140/80 10/14/17 18:53 85 20 100 10/14/17 18:53 85 20 10/14/17 18:50 152/78 10/14/17 18:48 87 20 100 10/14/17 18:48 89 20 10/14/17 18:45 166/84 10/14/17 18:43 87 16 100 10/14/17 18:43 88 16 10/14/17 18:40 164/90 10/14/17 18:38 92 14 10/14/17 18:38 91 14 148/85 98 10/14/17 18:38 36.6 94 20 148/85 100 Oxymask 10 10/14/17 15:56 141/76 (97) 10/14/17 15:20 36.6 87 16 167/79 (108) 97 Room Air Physical Exam General Appearance: WD/WN, no apparent distress Eyes: normal inspection ENT: normal ENT inspection, hearing grossly normal Neck: supple Respiratory/Chest: chest non-tender, lungs clear, normal breath sounds Cardiovascular: + systolic murmur Abdomen: normal bowel sounds, non tender Extremities: normal range of motion, non-tender, + pertinent finding (right foot covered in dressing with boot) Neurologic/Psychiatric: alert, normal mood/affect, oriented x 3 Skin: normal color Laboratory Results Test 10/15/17 12:05 Bedside Glucose 232 mg/dl (70-99) Assessment and Plan 82 yo M w/ h/o recently diagnosed T2DM, Aortic Stenosis s/p replacement, BPH, Hypothyroidism, venous stasis, presenting with RLE cellulitis secondary to wound after failure of outpatient therapy with Bactrim , Augmentin RLE cellulitis/ osteomyelitis status post I&D/synovectomy/tenosynovectomy -Wound cultures positive for pansensitive staph aureus and group B strep - Status post incision and Drainage Right Foot Plantar Abscess; Evacuation of abscess of dorsal foot, 1st metatarsophalangeal joint Capsulotomy with irrigation and debridement, Synovectomy of right first metatarsophalangeal joint , Tenosynovectomy extensor hallucis longus Tendon, Excision Tibial Sesamoid - Continue Rocephin, PICC line placed - PT/OT with nonweightbearing for 3-4 weeks. Diabetes II- poorly controlled - Lantus with insulin sliding scale - Will be discharged on 1000 mg metformin twice a day - Lifestyle and diet modifications Aortic Stenosis/HTN/ Transient Atrial Flutter - Continue ASA 81 mg, Diltiazem 180 mg daily and Lasix 20 mg daily - Patient is NOT on Eliquis BPH - Continue Tamsulosin 0.4 mg HS Hypothyroidism - continue Levothyroxine 50 mcg daily - plan for a repeat TSH in 6 weeks as this was recently drawn with PCP during active infection and TSH may not be a true reflection DVT Prophylaxis - SCD Dispo: Home health with IV Abx and home PT Resident Physician Supervision Note: I interviewed and examined the patient. Discussed with Dr. Curran and agree with findings and plan as documented in the note. Any exceptions or clarifications are listed here: None Documented By: Yang Brown feeling OK post op. d/w PT - assessment - will need equipment to be safe at home, pt opts for home tomorrow in this regard vitals noted nad breathing unlabored DM foot infection w osteomyelitis and abscess -now improved post op -PICC and at least 6wks rocephin -assistive devices and ongoing PT both here and at home uncontrolled type 2 DM -motivated for lifestyle changes will add lovenox DVT proph now post op otherwise as above Resident Tracking Resident Involvement: Resident Care Provided Care Provided: Adult Hospital Medicine
[2017-10-15 15:22] VITALS: BP 149/72; PULSE 77; TEMP 36.7; O2SAT 95
[2017-10-15] MEDS: TAMSULOSIN HCL 0.4 MG CAP PO SCH (20:45)
[2017-10-15] MEDS ORDERED: ENOXAPARIN 40 MG/0.4 ML SYR SQ SCH (21:00)
[2017-10-15 23:12] VITALS: BP 130/70; PULSE 67; TEMP 36.9; O2SAT 93
[2017-10-16] MEDS: SODIUM CHLORIDE 0.9% 1000ML 1,000 ML IV SCH (05:26)
[2017-10-16] MEDS: LEVOTHYROXINE 50 MCG TAB PO SCH (05:57)
[2017-10-16 06:01] LABS: CALCIUM 7.8 mg/dl (8.5-10.1); CREATININE 0.99 mg/dl (0.60-1.40); POTASSIUM 3.9 mmol/L (3.5-5.1)
[2017-10-16 06:23] VITALS: BP 148/73; PULSE 76; TEMP 36.7; O2SAT 93
[2017-10-16] MEDS: ASPIRIN 81 MG ECTAB PO SCH (07:47)
[2017-10-16] MEDS: LACTOBACILLUS ACIDOPHILUS (FLORANEX) TAB PO SCH ×2 (07:47→12:30)
[2017-10-16] MEDS: FUROSEMIDE 20 MG TAB PO SCH (07:47)
[2017-10-16] MEDS: DILTIAZEM HCL (TIAzac) 180 MG CAPCR PO SCH (07:48)
[2017-10-16] MEDS: INSULIN ASPART 100 UNITS/ML 3 ML PEN SC SCH ×2 (07:50→12:44)
[2017-10-16] MEDS: INSULIN GLARGINE SOLOSTAR 100 UNITS/ML 3 ML PEN SC SCH (07:51)
[2017-10-16] MEDS: CEFTRIAXONE SOD INJ 2,000 MG in DEXTROSE 5% 50ML 50 ML IV SCH (07:52)
--- NOTE | 2017-10-16 08:56 | Progress Note ---
Subjective Date of Service: Oct 16, 2017. Subjective s/p I&D, culture negative to date, blood culture negative, tolerating abx, afebrile. Problem List Medical Problems: (1) Cellulitis of right foot Status: Acute (2) Diabetic foot ulcer Status: Acute (3) Diabetic infection of right foot Status: Acute Objective Vital Signs Date Time Temp Pulse Resp B/P (MAP) Pulse Ox O2 Delivery O2 Flow Rate FiO2 10/16/17 06:23 36.7 76 16 148/73 (98) 93 Room Air 10/16/17 00:15 Room Air 10/15/17 23:12 36.9 67 17 130/70 (90) 93 Room Air 10/15/17 15:25 Room Air 10/15/17 15:22 36.7 77 16 149/72 (97) 95 Room Air Laboratory Results Item Value Date Time Gram Stain - Final Resulted 10/14/17 1922 Abscess Toe Right 1 Blood Culture - Preliminary Resulted 10/11/17 2158 Blood NO GROWTH TO DATE. Blood Culture - Preliminary Resulted 10/11/17 2152 Blood NO GROWTH TO DATE. Gram Stain - Final Complete 10/11/17 1720 Abscess Swab Last 24 Hours Test 10/15/17 12:05 10/15/17 17:04 10/15/17 20:31 10/16/17 05:20 Bedside Glucose 232 mg/dl 169 mg/dl 224 mg/dl Sodium Level 136 mmol/L Potassium Level 3.9 mmol/L Chloride Level 104 mmol/L Carbon Dioxide Level 30 mmol/L Anion Gap 2.0 mmol/L Blood Urea Nitrogen 17 mg/dl Creatinine 0.99 mg/dl Est Creatinine Clear Calc Drug Dose 59.1 ml/min Estimated GFR () 80.7 Estimated GFR (Non- 69.6 BUN/Creatinine Ratio 17.0 Random Glucose 126 mg/dl Calcium Level 7.8 mg/dl Test 10/16/17 06:58 Bedside Glucose 136 mg/dl Assessment and Plan (1) Diabetic foot ulcer Assessment & Plan: suspect osteo, s/p I&D. on ctx. blood cultures negative to date. will likely require course of IV abx, ctx for ease of once daily dosing. will need picc line. will need weekly cbc, cmp, esr while on abx. would give 6 weeks from time of OR, can follow with ID post d/c Continued [facility] stay due to: other Discharge planning: home with IV medication
--- NOTE | 2017-10-16 10:00 | NUR ---
Case Management Note- Per MD, patient is stable for discharge home today. Patient is going to need a wheelchair at home and already has multiple walkers. Met with patient at bedside and provided him with list of DME companies. Patient chose [facility]. With permission, referral faxed to [employer]. Also faxed script for wheelchair to be delivered to patient home. Awaiting insurance coverage. Spoke with Carissa at [facility] and they are able to start services for home IV abx tomorrow. Also spoke with Saira at [facility] and they are able to start services tomorrow am at 0900. Patient family to provide transportation home. Addendum: 10/16/17 at 1128 by [facility] Updated at bedside with discharge plan. She verbalizes understanding. Call out to [facility] to determine if wheelchair can be delivered today. [facility] accepts patient's insurance, but exact coverage won't be known until Tuesday. Patient and aware and agree to possible out of pocket costs. MD also provided patient with scripts for BSC and another walker if needed. Addendum: 10/16/17 at 1159 by [facility] Received call back from Ti at [facility]. They are unable to deliver wheelchair to patient's home until Tuesday, but they can deliver one to patient hospital room if they have room in their vehicle. Met with patient and at bedside. They agree to wheelchair being delivered to the hospital. Ti is to deliver at 1300. No further questions or needs at this time.
[2017-10-16] MEDS ORDERED: GLC/500 PO (10:53)
[2017-10-16] MEDS ORDERED: CEFT1INJ57 IV (10:56)
--- NOTE | 2017-10-16 11:05 | Discharge Instructions ---
Discharge Instructions Date of Service Oct 16, 2017. Admission Reason for Admission: Cellulitis Discharge Discharge Diagnosis / Problem: Right great toe osteomyelitis Discharge Goals Goal(s): Decrease discomfort, Improve function Activity Recommendations Activity Limitations: per Instructions/Follow-up section Weightbearing Status: Right non-weightbearing . Instructions / Follow-Up Instructions / Follow-Up You were admitted with swelling and redness of your right leg/foot and found to have osteomyelitis of your great toe . [id number] and drainage of the abscess in the foot was performed along with debridement of the joint synovium and tendon. Your wound culture grew Staph aureus and group B strep and you are being treated with antibiotics for the same. Right plantar foot abscess status post I&D /debridement - Continue to use Rocephin 2g daily via your PICC line for 6 weeks - You will need weekly labs including CBC, ESR, CMP weekly for 6 weeks while on the antibiotic - Home Physical therapy with non weight bearing on the right foot, with walker/ wheelchair - Ice/ elevate as needed. - Do Not get foot/ incision wet. - No driving. - Keep Dressing clean, dry and in tact. - You may use Tylenol or Motrin as needed for pain control - Use postop shoe for ambulation Follow up with Dr. London at [facility] next week, call for appt. Diabetes II- poorly controlled - Use 1000 mg metformin twice a day - recommend lifestyle modifications with a healthy balanced low carb diet and exercise Aortic Stenosis/Hypertension/ Transient Atrial Flutter - Continue aspirin 81 mg, Diltiazem 180 mg daily and Lasix 20 mg daily BPH - Continue Tamsulosin 0.4 mg HS Hypothyroidism - continue Levothyroxine 50 mcg daily - plan for a repeat TSH in 6 weeks and follow up with your PCP. If you develop any redness, swelling or pain at the site of your PICC line, seek medical attention Follow up with Dr. London at [facility] next week, call [phone] for appt. Follow up with PCP in about a week Follow up with Dr. Barksdale in 2-3 weeks Current Hospital Diet Patient's current hospital diet: Diabetes Type 2 Diet Discharge Diet Recommended Diet: Diabetes Type 2 Diet Procedures Procedures Performed: Incision and Drainage Right Foot Plantar Abscess; Evacuation abscess of dorsal foot, 1st metatarsophalangeal joint Capsulotomy with irrigation and debridement, Synovectomy right first metatarsophalangeal joint, Tenosynovectomy extensor hallucis longus Tendon, Excision Tibial Sesamoid Pending Studies Studies pending at discharge: yes List of pending studies: wound culture from OR Laboratory Results Hemoglobin A1c Test 10/12/17 06:42 Range/Units Estimated Average Glucose 206 mg/dl Hemoglobin A1c 8.8 H 4.5-5.6 % Medical Emergencies . Who to Call and When: Medical Emergencies: If at any time you feel your situation is an emergency, please call 911 immediately. . Non-Emergent Contact Non-Emergency issues call your: Primary Care Provider Call Non-Emergent contact if: you have a fever . . "Provider Documentation" section prepared by Maryjane Curran. . Chair And Couch Maker Recommendations Chair And Couch Maker Recommendations: Home IV antibx as ordered. NWB Right LE w walker/ wheelchair. Ice/ elevate as needed. Do Not get foot/ incision wet. No driving. Keep Dressing clean, dry and in tact. Follow up with Dr. London at [facility] next week, call for appt. VTE Core Measure Inpt VTE Proph given/why not?: Unfractionated heparin SQ, SCD's Resident Tracking Resident Involvement: Resident Care Provided Care Provided: Adult Hospital Medicine
--- NOTE | 2017-10-16 11:09 | Orthopedic Progress Note ---
Orthopedic Progress Note Date of Service Oct 16, 2017. Subjective Post OP Day: 2 Reports: feeling well, pain controlled w PO medications, Denies: complaints, chest pain, SOB, nausea / vomiting, light headedness, calf pain Objective calves soft nontender, N/V intact, capillary refill less than 2 sec., incision C /D/I, A&O x3, toes mobile sutures in tact, mild erythema, packing pulled today by me and new dressing applied. Date Time Temp Pulse Resp B/P (MAP) Pulse Ox O2 Delivery O2 Flow Rate FiO2 10/16/17 07:30 Room Air 10/16/17 06:23 36.7 76 16 148/73 (98) 93 Room Air 10/16/17 00:15 Room Air 10/15/17 23:12 36.9 67 17 130/70 (90) 93 Room Air 10/15/17 15:25 Room Air 10/15/17 15:22 36.7 77 16 149/72 (97) 95 Room Air Assessment & Plan Assessment: POD #2, Incision and Drainage Right Foot Plantar Abscess; Evacuation abscess of dorsal foot, 1st metatarsophalangeal joint Capsulotomy with irrigation and debridement, Synovectomy right first metatarsophalangeal joint, Tenosynovectomy extensor hallucis longus Tendon, Excision Tibial Sesamoid Plan: Disposition Home w HH likely with home antix today poss per primary team Await operative gram stain and cultures, recent labs growing staph As per ID, currently on Rocephin- PICC placed, will need 6 weeks of IV antibx DVT proph- ASA As per medicine PT/ OT NWB for 3-4 weeks
--- NOTE | 2017-10-16 11:16 | Consultant Recommendations ---
Unmanned Equipment Operator Recommendations Date of Service Oct 16, 2017. Unmanned Equipment Operator Recommendations S/p 1st MTP joint I&D Home IV antibx as ordered. NWB Right LE w walker/ wheelchair. Ice/ elevate as needed. Do Not get foot/ incision wet. No driving. Keep Dressing clean, dry and in tact. Follow up with Dr. London at [facility] next week, call for appt.
--- NOTE | 2017-10-16 11:39 | Discharge Summary ---
Discharge Summary Date of Service Oct 16, 2017. Discharge Summary Admission Date: Oct 11, 2017 at 21:30 Discharge Date: Oct 16, 2017 Discharge Disposition: Home Principal Diagnosis: osteo-myelitis of the right great toe Medication Reconciliation New Medications: Ceftriaxone Sod (Rocephin) 1 Gm Inj 2 GM IV DAILY, #39 VIAL Changed Medications: Metformin Hcl (Glucophage) 500 Mg Tab 1000 MG PO BID, #30 TAB (Changed from: 500 MG) Continued Medications: Aspirin (Aspir-81) 81 Mg Tab 1 TAB PO BID for 90 Days, #180 TAB 3 Refills Calcium Citrate (Calcium Citrate) 250 Mg Tab 500 MG PO DAILY Cholecalciferol (Vitamin D3) 2,000 Unit Cap 1 CAP PO DAILY for 30 Days, #30 CAP 3 Refills Diltiazem Hcl Ext Rel (Tiazac) 180 Mg Capcr 180 MG PO DAILY, CAP Furosemide (Lasix) 20 Mg Tab 20 MG PO DAILY Levothyroxine Sodium (Synthroid) 50 Mcg Tab 50 MCG PO DAILYBB, #1 TAB Multivitamin (Multivitamin) Tab 1 TAB PO QPM Tamsulosin Hcl (Flomax) 0.4 Mg Cap 0.4 MG PO PM, CAP [Unknown Antibiotic] () PO UD Discontinued Medications: Amoxicillin (Amoxil) Unknown Strength Cap 1 CAP PO TID for 7 Days, CAP Discharge Exam Doing better today. Denies any fevers or chills, excessive pain at the site of surgery. States that he is ready to go home Review of Systems: Constitutional: No fever, No chills, No sweats Eyes: No worsening of vision ENT: + hearing loss Respiratory: No cough, No sputum Cardiovascular: No chest pain Abdomen: No pain, No nausea, No vomiting Musculoskeletal: No joint pain Genitourinary - Male: No hematuria, No dysuria Neurologic: No memory loss Psychiatric: No depression symptoms Endocrine: No fatigue Hematologic / Lymphatic: No abnormal bleeding/bruising Physical Exam: General Appearance: WD/WN, no apparent distress Eyes: normal inspection Neck: supple, no adenopathy Respiratory/Chest: chest non-tender, lungs clear, normal breath sounds, no respiratory distress, no accessory muscle use Cardiovascular: + systolic murmur Abdomen / GI: normal bowel sounds, non tender, soft Extremities: no calf tenderness, no pedal edema, + pertinent finding (right foot covered in dressing and postop boot) Neurologic/Psychiatric: alert, normal mood/affect, oriented x 3 Skin: normal color Hospital Course 82 yo M w/ h/o recently diagnosed T2DM, Aortic Stenosis s/p replacement, BPH, Hypothyroidism, venous stasis, presented with RLE cellulitis secondary to wound after failure of outpatient therapy with Bactrim , Augmentin. Foot x-ray and MRI were suggestive of cellulitis and abscesses of the plantar aspect of the right first metatarsophalangeal joint and developing osteo-myelitis of the lateral sesamoid. Wound cultures were positive for pansensitive staph aureus and group B strep. Blood cultures have been negative. He was initially treated with IV vancomycin and after culture results was switched to IV Rocephin after consultation with infectious disease specialist. Orthopedics was also consulted and he underwent I&D of the foot abscess with first metatarsophalangeal capsulotomy, irrigation and debridement and Synovectomy of right first metatarsophalangeal joint, Tenosynovectomy extensor hallucis longus Tendon and Excision of Tibial Sesamoid. He was placed in a postop boot and recommended nonweightbearing on the right foot for about 3-4 weeks. He was scheduled for home PT and is recommended to follow up with orthopedics in about a week. ID recommended 6 weeks of antibiotic therapy with IV Rocephin and he has been set up with a PICC line and home health for IV infusions. He is recommended to get weekly CBC, CMP, ESR during his course of antibiotics. He will need to follow up with ID in about 3-4 weeks He was also found to have elevated blood sugars and hemoglobin A1c of 8.8, his home regimen included 500 mg metformin twice a day which has been increased to 1000 mg twice a day with active lifestyle modifications, healthy balanced diet. He is to follow-up with his PCP for further management of his blood sugars. His TSH also would require to be repeated in about 6 weeks as the initial TSH was drawn during his active infection. Total Time Spent: Greater than 30 minutes This includes examination of the patient, discharge planning, medication reconciliation, and communication with other providers. Discharge Instructions Please refer to the electronic Patient Visit Report (Discharge Instructions) for additional information. Follow-Up Follow-up with orthopedics in about a week, follow-up with infectious disease in 3- 4 weeks, follow-up with PCP in about a week Additional Copies To Jacinto Mcleod MD Resident Tracking Resident Involvement: Resident Care Provided Care Provided: Adult [facility]
--- NOTE | 2017-10-16 11:42 | NUR ---
ID note: Pt. is discharged home with HH. Call wesley within reach.
[2017-10-16 11:44] VITALS: BP 148/73; PULSE 76; TEMP 36.7; O2SAT 93
== END 2017-10-16 14:10 | disposition home health service (06) | DRG 988 ==
LOC: C.EDB 15:13 → C.MSN 21:30 → ENRESERV 21:42
PROVIDERS: ADMIT Internal Medicine; ATTEND Family Medicine
PROC: 0MD Bursae and Ligaments, Extraction (ICD-10-PCS; principal; 2017-10-14 14:30)
PROC: 0KBV0ZX Excision of Right Foot Muscle, Open Approach, Diagnostic (ICD-10-PCS; principal; 2017-10-14 14:30)
PROC: 0S9M0ZX Drainage of Right Metatarsal-Phalangeal Joint, Open Approach, Diagnostic (ICD-10-PCS; principal; 2017-10-14 14:30)
PROC: 0QTN0ZZ Resection of Right Metatarsal, Open Approach (ICD-10-PCS; principal; 2017-10-14 14:30)
PROC: 0SCM0ZZ Extirpation of Matter from Right Metatarsal-Phalangeal Joint, Open Approach (ICD-10-PCS; principal; 2017-10-14 14:30)
PROC: 02HV33Z Insertion of Infusion Device into Superior Vena Cava, Percutaneous Approach (ICD-10-PCS; principal; 2017-10-14 14:30)
DX: E11.69 Type 2 diabetes mellitus with other specified complication (principal); M86.8X7 Other osteomyelitis, ankle and foot; I48.92 Unspecified atrial flutter; L03.115 Cellulitis of right lower limb; M00.871 Arthritis due to other bacteria, right ankle and foot; M65.171 Other infective (teno)synovitis, right ankle and foot; N17.9 Acute kidney failure, unspecified; I89.0 Lymphedema, not elsewhere classified; Z95.2 Presence of prosthetic heart valve; E11.621 Type 2 diabetes mellitus with foot ulcer; L97.519 Non-pressure chronic ulcer of other part of right foot with unspecified severity; B95.61 Methicillin susceptible Staphylococcus aureus infection as the cause of diseases classified elsewhere; Z79.82 Long term (current) use of aspirin; I10 Essential (primary) hypertension; N40.0 Benign prostatic hyperplasia without lower urinary tract symptoms; E03.9 Hypothyroidism, unspecified; I87.8 Other specified disorders of veins; Z79.84 Long term (current) use of oral hypoglycemic drugs; S92.811S Other fracture of right foot, sequela; X58.XXXS Exposure to other specified factors, sequela

== ENCOUNTER → 2017-10-18 | Outpatient (CLI) | payer BC, OTHER ==
[~2017-10-18] MED LIST changes: +CALC250T8 PO; -CALC500C70 PO; +CEFT1INJ57 IV; +DILT-113 PO; -ELQ25 PO; -Enteral Nutrition Formula PO; +GLC/500 PO; -INSDGIPEN SC; -NTRO1 EXT; -NTRSLP4 SL; -NVLGIPEN SC; +UNKNOWN ANTIBIOTIC PO; -[UNRECOGNIZED DRUG - CODE] IV
[2017-10-18 12:44] LABS: BASO % 0.4 %; BASO ABS # 0.03 K/uL (0-0.2); EOS % 2.3 %; EOS ABS # 0.19 K/uL (0-0.5); HEMATOCRIT 31.2 % (42-52); HEMOGLOBIN 10.7 g/dL (14.0-18.0); IG# 0.02 K/uL (0.00-0.02); LYMPH % 10.6 %; LYMPH ABS # 0.87 K/uL (1.2-3.4); MEAN CELL VOLUME 93.7 fL (80-100); MEAN CORPUSCULAR HEMOGLOBIN 32.1 pg (25-34); MEAN CORPUSCULAR HGB CONC 34.3 g/dl (32-36); MEAN PLATELET VOLUME 9.5 fL (7.4-10.4); NEUT % 75.5 %; NEUT ABS # 6.16 K/uL (1.4-6.5); PLATELET COUNT 215 K/uL (130-400); RED CELL DISTRIBUTION WIDTH CV 13.7 % (11.5-14.5); RED CELL DISTRIBUTION WIDTH SD 46.8 fL (36.4-46.3); WHITE BLOOD COUNT 8.17 K/uL (4.8-10.8)
[2017-10-18 13:45] LABS: ALBUMIN 2.4 gm/dl (3.4-5.0); ALKALINE PHOSPHATASE 74 U/L (45-117); ALT/SGPT 25 U/L (12-78); AST/SGOT 22 U/L (15-37); BLOOD UREA NITROGEN 21 mg/dl (7-18); CALCIUM 8.5 mg/dl (8.5-10.1); CARBON DIOXIDE 27 mmol/L (21-32); CREATININE 1.38 mg/dl (0.60-1.40); GLUCOSE 284 mg/dl (70-99); POTASSIUM 4.5 mmol/L (3.5-5.1); SODIUM 135 mmol/L (136-145); TOTAL PROTEIN 5.7 gm/dl (6.4-8.2)
== END | disposition home or self-care (01) ==
LOC: C.LABSPEC 11:29
PROVIDERS: ATTEND Internal Medicine Infectious Disease
DX: A49.01 Methicillin susceptible Staphylococcus aureus infection, unspecified site (principal)

== ENCOUNTER → 2017-11-01 | Outpatient (CLI) | payer BC ==
[2017-11-01 14:51] LABS: BASO % 0.6 %; BASO ABS # 0.04 K/uL (0-0.2); EOS % 7.8 %; HEMATOCRIT 38.8 % (42-52); HEMOGLOBIN 13.2 g/dL (14.0-18.0); IG# 0.02 K/uL (0.00-0.02); LYMPH % 12.3 %; LYMPH ABS # 0.79 K/uL (1.2-3.4); MEAN CELL VOLUME 94.6 fL (80-100); MEAN CORPUSCULAR HEMOGLOBIN 32.2 pg (25-34); MEAN PLATELET VOLUME 9.8 fL (7.4-10.4); MONO % 12.1 %; MONO ABS # 0.78 K/uL (0.11-0.59); NEUT % 66.9 %; PLATELET COUNT 129 K/uL (130-400); RED CELL DISTRIBUTION WIDTH CV 14.9 % (11.5-14.5); RED CELL DISTRIBUTION WIDTH SD 50.3 fL (36.4-46.3); WHITE BLOOD COUNT 6.43 K/uL (4.8-10.8)
[2017-11-01 15:31] LABS: ALBUMIN 3.4 gm/dl (3.4-5.0); ALT/SGPT 79 U/L (12-78); AST/SGOT 61 U/L (15-37); BLOOD UREA NITROGEN 21 mg/dl (7-18); CALCIUM 8.8 mg/dl (8.5-10.1); CARBON DIOXIDE 27 mmol/L (21-32); CREATININE 1.27 mg/dl (0.60-1.40); GLUCOSE 178 mg/dl (70-99); POTASSIUM 4.5 mmol/L (3.5-5.1); SODIUM 135 mmol/L (136-145)
[2017-11-01 15:33] LABS: ALKALINE PHOSPHATASE 123 U/L (45-117)
== END | disposition home or self-care (01) ==
LOC: C.LABSPEC 13:33
PROVIDERS: ATTEND Internal Medicine Infectious Disease
DX: Z51.81 Encounter for therapeutic drug level monitoring (principal); Z79.2 Long term (current) use of antibiotics; A49.01 Methicillin susceptible Staphylococcus aureus infection, unspecified site

== ENCOUNTER 2021-02-25 10:22 | Inpatient (IN) ==
[2021-02-25] MEDS ORDERED: SODIUM CHLORIDE 0.9% 1000ML 1,000 ML IV SCH (11:15)
[2021-02-25 11:22] LABS: Appearance Urine Clear (Clear); Bilirubin Urine Negative (Negative); Blood Urine Negative (Negative); Color Urine Yellow; Glucose Urine UA Negative (Negative); Ketones Urine Negative (Negative); Leukocyte Esterase Urine Negative (Negative); Nitrite Urine Negative (Negative); Protein Urine Negative (Negative); Specific Gravity Urine 1.014 (1.000-1.030); Urobilinogen Urine Negative (Negative); pH Urine 7.5 (4.5-7.5)
--- NOTE | 2021-02-25 11:39 | XRay Report ---
XR chest 1V portable CLINICAL HISTORY: weakness COMPARISON STUDY: 05/30/2019 FINDINGS: The cardiac and mediastinal contours remain stable. There is aortic tortuosity/ectasia. The re is no lobar consolidation. There is no overt failure. There are no pleural effusions. There is min or basilar atelectasis. There are old rib deformities.[ IMPRESSION: No active disease in the chest. ACT 112: Negative or not required by law. Electronically signed by: John Luke M.D. 02/25/2021 11:38 AM
[2021-02-25 11:41] LABS: Basophils # (auto) 0.02 K/uL (0-0.2); Basophils % (auto) 0.3 %; Eosinophils # (auto) 0.26 K/uL (0-0.5); Eosinophils % (auto) 4.3 %; Hematocrit (blood only) 38.4 % (42-52); Hemoglobin 13.1 g/dL (14.0-18.0); Immature Granulocytes # (auto) 0.02 K/uL (0.00-0.02); Immature Granulocytes % (auto) 0.3 %; Lymphocytes # (auto) 0.97 K/uL (1.2-3.4); Lymphocytes % (auto) 15.9 %; Mean Corpuscular Hemoglobin 33.1 pg (25-34); Mean Corpuscular Hgb Conc 34.1 g/dL (32-36); Mean Platelet Volume 10.9 fL (7.4-10.4); Monocytes # (auto) 0.74 K/uL (0.11-0.59); Monocytes % (auto) 12.1 %; Neutrophils % (auto) 67.1 %; Platelet Count 143 K/uL (130-400); RDW Coefficient of Variation 14.1 % (11.5-14.5); RDW Standard Deviation 50.1 fL (36.4-46.3); Red Blood Count 3.96 M/uL (4.7-6.1); White Blood Count 6.11 K/uL (4.8-10.8)
--- NOTE | 2021-02-25 11:56 | CT Scan Report ---
CT head/brain wo con CLINICAL HISTORY: weakness COMPARISON STUDY: MRI the brain dated 02/18/2021 TECHNIQUE: Axial CT of the brain is performed from the vertex to the skull base. IV contrast was not administered for this examination. A dose lowering technique was utilized adhering to the principles of ALARA. CT DOSE: 823.94 mGycm FINDINGS: No intra or extra-axial mass lesions are visualized. There is no CT evidence of acute cortical infarc tion. There is no evidence of midline shift. There is no acute hemorrhage. No calvarial fractures ar e visualized. There are patchy white matter hypodensities likely on a small vessel basis. There is mild ventricular prominence, finding which is felt to be secondary to volume loss. There is mild paranasal sinus mucosal thickening. IMPRESSION: No acute intracranial findings ACT 112: Negative or not required by law. Electronically signed by: John Luke M.D. 02/25/2021 11:50 AM
--- NOTE | 2021-02-25 12:18 | CT Scan Report ---
LUMBAR SPINE CT WITHOUT CONTRAST CLINICAL HISTORY: BLE weakness, fall COMPARISON STUDY: Lumbar spine radiographs May 30, 2019. CT of the chest, abdomen and pelvis Robert 2016. TECHNIQUE: Axial images of the lumbar spine were obtained without IV contrast. Sagittal and coronal r econstructions were obtained. FINDINGS: For purposes of numbering on this exam, the L5-S1 disc space is assigned to axial image 334 of 436. There is 6 mm of anterolisthesis of L4 and L5 due to facet arthrosis. This is similar to sanchez or radiographs. There is a severe L1 compression fracture. There has been progressive loss of vertebr al body height since radiographs of May 30, 2019. Note is made of a 9 mm of retropulsion at this l evel which results in moderate central canal stenosis. The central canal and neural foramen are subop timally assessed by CT. There is moderate to severe central canal stenosis at L4-L5. Note is made of severe multilevel facet arthrosis and moderate multilevel degenerative disc disease. There is a possi ble acute fracture of S1 without significant loss of vertebral body height. The bladder distended. Th ere is trace pelvic ascites. Paravertebral soft tissues are unremarkable. Bilateral renal peripelvic cysts are noted. There are suspected bilateral renal calculi. T11 compression fracture is partially i gokul. This is likely old. IMPRESSION: 1. Suspected acute S1 vertebral body fracture without significant loss of vertebral body height. 2. Progressive loss of height of a severe compression fracture of L1 with 9 mm of retropulsion which results in moderate central canal stenosis. Partially imaged T11 compression fracture, likely old. 3. Moderate to severe central canal stenosis at L4-L5, as described above. 4. Severe multilevel facet arthrosis and moderate multilevel degenerative changes within lumbar spine . 5. Distended bladder. Trace pelvic ascites. ACT 112: Negative or not required by law. Electronically signed by: Mendel Shelby M.D. 02/25/2021 12:16 PM
[2021-02-25 12:25] LABS: Influenza A virus by PCR Negative (Neg); Influenza B virus by PCR Negative (Neg); RSV by PCR Negative (Neg); SARS CoV2 RNA(COVID-19) InHosp NEGATIVE (Negative)
[2021-02-25 13:04] LABS: Alanine Aminotransferase 20 U/L (12-78); Albumin Level 3.3 gm/dl (3.4-5.0); Aspartate Aminotransferase 19 U/L (15-37); BUN Creatinine Ratio 17.9 (10-20); Blood Urea Nitrogen 15 mg/dl (7-18); Calcium 8.2 mg/dl (8.5-10.1); Carbon Dioxide 29 mmol/L (21-32); Chloride 110 mmol/L (98-107); Creatinine Clr Calc Pharmacy 62.3 ml/min; Est GFR (African American) 89.7; Est GFR (Non-African American) 77.4; Glucose 130 mg/dl (70-99); Sodium 143 mmol/L (136-145)
[2021-02-25 13:15] LABS: Albumin Globulin Ratio 1.5 (0.9-2); Alkaline Phosphatase 61 U/L (45-117); Bilirubin,Total 0.8 mg/dl (0.2-1); Globulin 2.2 gm/dl (2.5-4.0); Total Protein 5.5 gm/dl (6.4-8.2); Troponin I < 0.015 ng/ml (0-0.045)
[2021-02-25 13:52] LABS: T4 Free Thyroxine 1.23 ng/dl (0.8-1.6)
--- NOTE | 2021-02-25 14:19 | History & Physical Report ---
Date of Service February 25, 2021 Assessment & Plan (1) Stroke-like symptoms: New onset right upper extremity weakness on exam. LKW 02/24, during the night. CTA head/neck MRI brain w/o contrast TTE Will add clopidogrel to usual aspirin Continue rosuvastatin and will repeat lipid panel in am given advanced age no need to increase acutely Allow permissive hypertension unless CVA ruled out with MRI. Rx sBP > 220. Discontinue furosemide. Will continue diltiazem to avoid rebound tachycardia. No current atrial flutter to warrant anticoagulation but will contact PCP if stroke is confirmed for further information regarding this. PT/OT/Speech Consult neurology (2) Memory impairment: Recently suspected to have dementia (Alzhiemer's vs. vascular) with neurology visit just 9 days ago. I do not see he has completed the lab work for this ordered. MRI at that time showed chronic microvascular changes only. (3) Sacral fracture: Noted on CT. MRI lumbar spine pending. PT/OT eval's. Patient can fully weight-bear. (4) Compression fracture of L1 lumbar vertebra: Unclear if acute. Patient is having no pain in this area. Depression appears on multiple previous films although retropulsion of 9 mm appears more severe than previous. In addition he has severe spinal stenosis below this. MRI lumbar spine pending. He has mild bilateral weakness on my exam with right slightly weaker than the left which he reports is chronic due to his lymphedema being worse in his right leg. In the setting of acute CVA I am unclear how much this is really affecting him in the absence of back pain. Consults ortho spine (5) Lumbar spinal stenosis: As above (6) Hypertension: If MRI shows stroke allow permissive hypertension as above and will discontinue furosemide. If MRI negative for CVA will treat systolic blood pressure > 180 (7) Atrial flutter: Noted to be "transient" on prior notes but no explanation of why he is not on anticoagulation. Reportedly he was on Eliquis at some point although unclear why this was discontinued. Continue diltiazem 180mg PO daily to avoid rebound tachycardia (8) S/P AVR (aortic valve replacement): Noted. No prior details available on admission regarding this. (9) Hypothyroid: TSH elevated in setting of suspected acute CVA. Free T4 normal therefore continue his usual levothyroxine dose which was recently increased regardless. Continue levothyroxine 100 mcg p.o. daily (10) BPH (benign prostatic hyperplasia): Continue tamsulosin 0.4 mg p.o. daily (11) Diabetes: HbA1C unknown, will repeat with AM labs Hold metformin Goal BSG Range: Low 110 mg/dL, High 140 mg/dL Correction Factor: 45 mg/dL/unit No carb coverage BSGs ACHS if eating, q6h if npo (12) DVT prophylaxis: Avoid SCDs but will wrap his usual lymphedematous legs. Consider chemical VTE prophylaxis depending on patient mobility tomorrow. Admission and Anticipated Discharge Date Admission Date: February 25, 2021 History of Present Illness Chief Complaint: Generalized weakness, fall, right upper extremity weakness Primary Care Provider: Jacinto Mcleod Eligio Morrell is an 86 year old male who presents to the ER with generalized weakness and fall. Majority of the history was taken from his [id number] at bedside. She reports chronically he is having problems with increased episodes of confusion which is currently being worked up by neurology but felt to be dementia. At baseline he has been having increased problems with his balance and walking on his right side due to chronic right leg lymphedema > left and refusal to use a cane. However last night he had a fall which he does not r emember the details of. He told his [id number] today however he may have felt dizzy prior to falling. He was found by his called up on the floor. He was able to crawl back into his bed. This morning however he is unable to sit upright. He notes his the right side of his head and right upper extremity hurting although this did not last long. He did not seem to have much strength in both his arms and legs. His right thigh appeared more placed in the left. Right leg appeared much worse than the left. EMS was called and he is unable to walk a short distance to the [facility]. No obvious facial droop. No episode of confusion this morning. No back pain. No vision/speech/hearing changes. He was generally feeling fine yesterday up until his fall. In the ER concern for bilateral lower extremity weakness noted on CT of his lumbar spine showing severe spinal stenosis, L1 compression fracture with retropulsion and sacral fracture. His case was discussed with Dr. Green and MR I lumbar spine pending at this time. The patient denies any back pain, urine retention/incontinence or bowel incontinence. He was referred to medicine for admission ongoing management of severe L1 compression fracture with retropulsion and L4-5 stenosis. Allergies Allergy/AdvReac Type Severity Reaction Status Date / Time metoprolol AdvReac Mild GI SYMPTOMS Verified 10/27/20 10:04 Home Medications Medication Instructions Recorded Confirmed Type amoxicillin 500 mg PO UD 05/30/19 02/25/21 History aspirin 81 mg PO BID 05/30/19 02/25/21 History cholecalciferol (vitamin D3) 1,000 unit PO QAM 05/30/19 02/25/21 History [Vitamin D3] diltiazem HCl 180 mg PO QAM 05/30/19 02/25/21 History furosemide 20 mg PO QAM 05/30/19 02/25/21 History ibuprofen [Advil] 200 mg PO QID PRN 05/30/19 02/25/21 History metformin 850 mg PO TID 05/30/19 02/25/21 History naproxen sodium [Aleve] 440 mg PO QAM PRN 05/30/19 02/25/21 History rosuvastatin 10 mg PO QAM 05/30/19 02/25/21 History tamsulosin 0.4 mg PO QPM 05/30/19 02/25/21 History levothyroxine 100 mcg tablet 100 mcg PO DAILY 02/16/21 02/25/21 History Past Med/Surg History Medical History (Updated 02/25/21 @ 23:09 by Michael Zuñiga MD) Anemia Atrial flutter BPH (benign prostatic hyperplasia) Carotid stenosis Cellulitis Chronic kidney disease Diabetes History of aortic stenosis s/p avr Hyperlipidemia Hypertension Hypothyroid Squamous cell carcinoma Multiple Surgical History S/P AVR (aortic valve replacement) Family History Uncle Parkinson disease Brother Parkinson disease Other Family history non-contributory Social History Smoking Status: Never smoker Second Hand Exposure: No; Do You Dip or Chew Tobacco: No; Tobacco Cessation Education Requested by Patient: No Hx Alcohol Use: No Hx Substance Use: No Preferred Language: Bots[place] Communication Ability: Effective Communication Ability Comment: patient very hard of hearing. 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 Other Information That Helps Us Care for You: No Feels Safe at Home: Yes Safety Concerns: Feels Safe At This Time Assistive Devices: Cane Assistive Devices Comment: doesn't always use cane; hearing aids at home with . Review of Systems Review of Systems: All systems reviewed & are unremarkable except as noted in HPI & below Physical Exam Constitutional: WD/WN, vitals as above Eyes: PERRL, conjunctivae normal, anicteric sclerae (chronic right eye lid mild droop) ENMT: external ear and nose normal, oropharynx normal Neck: trachea midline, no thyromegaly Respiratory: normal respiratory effort, lungs clear to auscultation Cardiovascular: Rate/Rhythm: regular rate and regular rhythm Heart Sounds: + murmur (2/6 ROBIN) Vessels: no JVD Extremities: normal capillary refill and + pedal edema (3+ R > L chronic lymphedema); no calf tenderness Gastrointestinal (Abdomen): Inspection/Auscultation: abdomen normal to inspection and normal bowel sounds Percussion/Palpation: abdomen soft; abdomen nontender, no guarding and abdomen not rigid Skin: + lesion (multiple SKs, aktinic keratoses on face and exposed upper extrmities) Neurologic: moves all extremities, + focal motor deficit (pronator drift as below, right elbow flex/ext 4/5, ring conductor strength 5/5 b/l) and awake Speech / Cognition: normal speech Motor/Sensory: + pronator drift (significant and new per daughter in law on right) Cranial Nerves: PERRL, normal accommodation, EOM intact bilaterally, normal facial strength (previous right facial droop resolved per daughter in law), tongue midline, normal hearing, able to rotate head bilaterally, able to elevate shoulders bilaterally, no nystagmus and symmetric palate elevation Psychiatric: Orientation: alert and oriented x 3 Eye Contact: good eye contact Speech: normal rate/rhythm/volume of speech Results & Data Results & Data ([facility]) Vital Signs (Past 12 Hours) Vital Signs Temp Pulse Resp BP Pulse Ox 02/25/21 14:00 71 20 152/84 H 94 02/25/21 13:37 68 22 95 02/25/21 13:36 73 21 163/86 H 02/25/21 13:35 90 23 02/25/21 13:00 58 L 14 167/68 H 96 02/25/21 12:30 63 15 167/59 H 95 02/25/21 12:01 82 21 165/72 H 95 02/25/21 12:00 69 19 97 02/25/21 11:31 82 15 152/116 H 100 02/25/21 11:30 80 19 95 02/25/21 11:17 97 02/25/21 11:01 76 17 97 02/25/21 11:00 79 18 173/92 H 97 02/25/21 10:38 75 23 169/120 H 98 02/25/21 10:34 80 23 98 02/25/21 10:33 36.7 C 79 20 170/104 H 95 02/25/21 10:28 75 17 170/104 H 98 Diagnostic Findings LUMBAR SPINE CT WITHOUT CONTRAST IMPRESSION: 1. Suspected acute S1 vertebral body fracture without significant loss of vertebral body height. 2. Progressive loss of height of a severe compression fracture of L1 with 9 mm of retropulsion which results in moderate central canal stenosis. Partially imaged T11 compression fracture, likely old. 3. Moderate to severe central canal stenosis at L4-L5, as described above. 4. Severe multilevel facet arthrosis and moderate multilevel degenerative changes within lumbar spine. 5. Distended bladder. Trace pelvic ascites. CT head/brain wo con IMPRESSION: No acute intracranial findings XR chest 1V portable IMPRESSION: No active disease in the chest. Medications Administered ER medications given: NSS @ 125 ml/hr ECG Rate (beats per minute): 73 Rhythm: sinus with SA Findings: + other (Nonspecific T wave abnormality) Comparison ECG Date: from (October 14, 2017) Change: no significant change Code Status & VTE Plan Code Status DNR in event of cardiac arrest -he wishes to have all other treatment outside of a cardiac arrest VTE Prophylaxis Plan VTE Prophylaxis will be ordered: Yes PG Care Time/CCT Total # of Minutes Spent Total Time Spent with Patient: Total time spent is greater than 50% in coordination of care (as documented) at patient's floor/unit and/or counseling patient: Coding Level of Care Code 30354 OBS Care - Level 3 Diagnoses Stroke-like symptoms R29.90 Memory impairment R41.3 Sacral fracture S32.10XA Compression fracture of L1 lumbar vertebra S32.010A Lumbar spinal stenosis M48.061 Hypertension I10 Atrial flutter I48.92 Atrial flutter type: unspecified S/P AVR (aortic valve replacement) Z95.2 Hypothyroid E03.9 BPH (benign prostatic hyperplasia) N40.0 Diabetes E11.9 DVT prophylaxis Z29.9 (1) Atrial flutter Atrial flutter type: unspecified Qualified Code(s): I48.92 - Unspecified atrial flutter
[2021-02-25] MEDS ORDERED: OPTIRAY 350 500ml IV ONE (15:46)
--- NOTE | 2021-02-25 16:00 | CT Scan Report ---
CT angio head w con CLINICAL HISTORY: RUE weakness TECHNIQUE: CT angiography of the head was performed in a dynamic helical fashion during intravenous a dministration of 120 cc of Optiray. MIP imaging was performed. A dose lowering technique was utilized adhering to the principles of ALARA. CT DOSE: 623.43 mGy.cm COMPARISON STUDY: No previous studies for comparison. FINDINGS: There are no lesion suspicious for aneurysm. There are bilateral cavernous and supraclinoid atherosclerotic calcifications with a 40% diameter narrowing of the right supraclinoid internal murphy tid. There are distal vertebral artery calcifications with a 40% diameter narrowing of distal right v ertebral artery. There are mild stenotic lesions involving both posterior cerebral arteries. There ar e no major intracranial branch occlusions. The dural venous sinuses appear patent as visualized. IMPRESSION: 1. No evidence of major intracranial branch occlusion 2. No evidence of aneurysm 3. Mild intracranial stenotic lesions as described above. ACT 112: Negative or not required by law. Electronically signed by: John Luke M.D. 02/25/2021 3:58 PM
--- NOTE | 2021-02-25 16:08 | Magnetic Resonance Report ---
MRI OF THE LUMBAR SPINE WITHOUT IV CONTRAST CLINICAL HISTORY: Compression fractures. COMPARISON STUDY: CT of the lumbar spine dated 02/25/2021. TECHNIQUE: MRI of the lumbar spine is performed utilizing various T1 and T2-weighted sequences in the axial and sagittal planes. IV contrast was not administered for this examination. FINDINGS: Lumbar spine: Marrow signal intensity is heterogeneous. There is a severe chronic compression deformi ty of L1. Fragments are retropulsed by up to 8 mm. There are minimal chronic superior endplate compre ssion deformities of L3 and L4. There is also a severe chronic compression deformity of T11 with mini mal marrow edema. The transverse and spinous processes appear intact. Anterior osteophytes are seen t hroughout. There is minimal anterolisthesis at L4-L5. Alignment is otherwise preserved. There is stra ightening of the lumbar lordosis. No destructive bony lesion is seen. Intervertebral discs: Degenerative disc desiccation and mild loss of height is seen throughout the federica mbar spine. Spinal cord: The visualized spinal cord is normal in morphology and signal intensity. The conus medul aquiles terminates at the L1-L2 interspace. T10-T11: A posterior disc bulge causes minimal central canal stenosis. There is moderate bilateral ne ural foraminal stenosis. T11-T12: A posterior disc bulge and minimally retropulsed fragments are of no consequence. The centra l canal is clear. There is moderate to severe bilateral neural foraminal stenosis. T12-L1: There are large retropulsed fragments at L1. This causes moderate central canal stenosis with a minimum AP diameter of 6 mm. Moderate to severe bilateral neural foraminal stenosis, right greater than left. L1-L2: The central canal is clear. The neural foramina are patent. L3-L4: There is minimal posterior disc bulge. The central canal is clear. There is bilateral subartic ular stenosis. In conjunction with facet arthropathy this causes mild bilateral neural foraminal narr owing. L4-L5: There is broad-based posterior disc bulge. In conjunction with hypertrophy of the ligamentum f lavum there is moderate to severe central canal stenosis with a minimum AP diameter of 5 mm. There is severe bilateral subarticular stenosis, right greater than left with impingement on the exiting bila teral L4 nerve roots. In conjunction with facet arthropathy there is moderate bilateral neural forami nal stenosis. L5-S1: There is minimal posterior disc bulge. The central canal is clear. Disc bulge abuts the transi ting bilateral nerve roots. Facet arthropathy contributes to mild bilateral neural foraminal stenosis . Sacrum: The visualized sacrum is normal in morphology and signal intensity. The sacral fracture sugge sted by CT could not be corroborated by MRI. No marrow edema is noted. Soft tissues: There is fatty atrophy of the paraspinous musculature. Peripelvic cysts are noted in suha th kidneys. The retroperitoneal structures are otherwise grossly unremarkable but incompletely evalua kraig. Diverticulosis is noted in the partially imaged colon. The bladder wall appears thickened and tr abeculated suggesting chronic outlet obstruction. IMPRESSION: 1. There are severe chronic appearing compression deformities of T11 and L1 as above. Retropulsed fra gments at L1 contribute to moderate central canal stenosis at this level. 2. Minimal chronic superior endplate compression deformities are noted in L3 and L4. 3. Lumbosacral spondylosis as above with moderate to severe central canal stenosis at L4-L5. See disc ussion for detailed level by level analysis. 4. There is no marrow edema to confirm sacral fracture as suggested by CT. Dictated: 02/25/2021 3:11 PM Transcribed: 02/25/2021 4:06 PM Faye [id number] [email or web address] Electronically signed by: Steven Foss M.D. 02/25/2021 4:07 PM
--- NOTE | 2021-02-25 16:09 | CT Scan Report ---
CT ANGIOGRAPHY OF THE NECK WITH CONTRAST CLINICAL HISTORY: Right upper extremity weakness. COMPARISON STUDY: No previous studies for comparison. Technique: CT angiography of the carotid and vertebral arteries was obtained using Opt[employer] and 3D rec onstruction on an independent workstation. NASCET criteria was utilized. Automated exposure control was utilized for the study. A dose lowering technique was utilized adhering to the principles of ALA RA. Findings: No significant abnormalities are identified within visualized portions of the lung apices. There is no cervical lymphadenopathy. No dissection is identified within the major vessels of the nec k. There is moderate stenosis at the origin of the bilateral vertebral arteries. Note is made of yun re stenosis of the proximal right internal carotid artery due to extensive plaque. There is near occl usion of this vessel. The site of narrowing extends for 1.7 cm. There is 50-60% stenosis of the proxi mal left internal carotid artery. The CTA of the head will be reported separately. There is extensive plaque of the aortic arch and proximal left subclavian artery without stenosis. There is also modera te plaque within the proximal right subclavian artery without stenosis. IMPRESSION: 1. Severe stenosis (95-99%) of the proximal right internal carotid artery with "string sign". 2. 50-60% stenosis of the proximal left internal carotid artery. 3. Moderate stenosis at the origin of the bilateral vertebral arteries. 4. Extensive atherosclerotic plaque, as described above. ACT 112: Negative or not required by law. Electronically signed by: Mendel Shelby M.D. 02/25/2021 4:07 PM
[2021-02-25] MEDS ORDERED: GLUCOSE 10 TABS/TUBE PO PRN (18:44)
[2021-02-25] MEDS ORDERED: DEXTROSE 50% 50 ML SYRINGE IV PRN (18:44)
[2021-02-25] MEDS ORDERED: CARBOHYDRATES FOR HYPOGLYCEMIA PO PRN (18:44)
[2021-02-25] MEDS ORDERED: GLUCAGON FOR INJ 1 MG VIAL SQ PRN (18:44)
[2021-02-25] MEDS ORDERED: PHARMACIST DISCHARGE MED REC CONSULT PRN (18:44)
[2021-02-25] MEDS ORDERED: GLUCOSE 40% GEL 15 GM TUBE PO PRN (18:44)
[2021-02-25] MEDS ORDERED: CLOPIDOGREL BISULFATE 300 MG TAB PO STA (20:42)
[2021-02-25] MEDS: TAMSULOSIN HCL 0.4 MG CAP PO SCH (20:57)
[2021-02-25] MEDS: INSULIN ASPART 100 UNITS/ML 3 ML PEN SC SCH (21:00)
[2021-02-26] MEDS: LEVOTHYROXINE SODIUM 100 MCG TABLET PO SCH (05:41)
--- NOTE | 2021-02-26 06:13 | Electrocardiogram Report ---
Test Reason : Blood Pressure : / mmHG Vent. Rate : 073 BPM Atrial Rate : 073 BPM P-R Int : 192 ms QRS Dur : 088 ms QT Int : 394 ms P-R-T Axes : 044 035 057 degrees QTc Int : 434 ms Poor data quality, interpretation may be adversely affected Sinus rhythm with marked sinus arrhythmia Premature supraventricular complexes Nonspecific T wave abnormality Abnormal ECG When compared with ECG of 14-OCT-2017 14:24, Premature supraventricular complexes are now Present Confirmed by Heron Cifuentes ([id number]) on 02/26/2021 6:12:36 AM Referred By: REFERRED SELF Confirmed By:Heron Cifuentes
[2021-02-26 07:25] LABS: Basophils # (auto) 0.04 K/uL (0-0.2); Basophils % (auto) 0.7 %; Eosinophils # (auto) 0.29 K/uL (0-0.5); Eosinophils % (auto) 4.8 %; Hematocrit (blood only) 39.9 % (42-52); Hemoglobin 13.7 g/dL (14.0-18.0); Immature Granulocytes # (auto) 0.01 K/uL (0.00-0.02); Immature Granulocytes % (auto) 0.2 %; Lymphocytes # (auto) 0.89 K/uL (1.2-3.4); Lymphocytes % (auto) 14.8 %; Mean Corpuscular Hemoglobin 33.7 pg (25-34); Mean Corpuscular Hgb Conc 34.3 g/dL (32-36); Mean Corpuscular Volume 98.3 fL (80-100); Mean Platelet Volume 9.7 fL (7.4-10.4); Monocytes # (auto) 0.85 K/uL (0.11-0.59); Monocytes % (auto) 14.1 %; Neutrophils # (auto) 3.95 K/uL (1.4-6.5); Neutrophils % (auto) 65.4 %; Platelet Count 131 K/uL (130-400); RDW Standard Deviation 49.6 fL (36.4-46.3); Red Blood Count 4.06 M/uL (4.7-6.1); White Blood Count 6.03 K/uL (4.8-10.8)
[2021-02-26 07:44] LABS: BUN Creatinine Ratio 13.6 (10-20); Creatinine Clr Calc Pharmacy 58.9 ml/min; Est GFR (African American) 86.9 ml/min
--- NOTE | 2021-02-26 07:50 | Magnetic Resonance Report ---
MRI OF THE BRAIN WITHOUT CONTRAST CLINICAL HISTORY: Right upper extremity weakness. COMPARISON STUDY: Head CT and CTA of the head February 25, 2021. MRI of the brain February 18, 2021. TECHNIQUE: Utilizing a 1.5 Jennifer magnet and dedicated coil, multiplanar, multiecho imaging of the bra in was performed without IV contrast. FINDINGS: There has been interval development of a small focus of restricted diffusion within the pos terior left frontal lobe within the feng radiata, measuring 1 cm. No additional foci of restricted diffusion are noted. Ventricular dilatation is unchanged. This is due to atrophy. Basal cisterns are patent. There are no extra-axial collections. Flow-voids for the major intracranial vessels are prese nt. White matter T2 hyperintense foci reflect small vessel disease. Calvarial signal is normal. No in tracranial masses identified on this unenhanced exam. Sinus mucosal thickening is incidentally noted. IMPRESSION: Interval development of a 1 cm acute infarct within the posterior left frontal lobe. ACT 112: Negative or not required by law. Electronically signed by: Mendel Shelby M.D. 02/26/2021 7:48 AM
[2021-02-26] MEDS: CHOLECALCIFEROL 1,000 UNITS 25 MCG TAB PO SCH (08:10)
[2021-02-26] MEDS: dilTIAZem ER 180 MG CAPCR PO SCH (08:10)
[2021-02-26] MEDS: CLOPIDOGREL BISULFATE 75 MG TAB PO SCH (08:10)
[2021-02-26] MEDS: ASPIRIN 81 MG ECTAB PO SCH (08:10)
[2021-02-26] MEDS: INSULIN ASPART 100 UNITS/ML 3 ML PEN SC SCH ×4 (08:13→20:25)
[2021-02-26 08:34] LABS: Estimated Average Glucose 166 mg/dl; Hemoglobin A1C 7.4 % (4.5-5.6)
--- NOTE | 2021-02-26 08:41 | Neurology Consultation ---
Date of Consultation February 26, 2021 Assessment & Plan (1) Stroke: (2) Carotid stenosis: (3) Memory impairment: (4) Compression fracture of L1 lumbar vertebra: Acute 1 cm infarct within the posterior left frontal lobe resulting in a very mild right hemiparesis without obvious associated aphasia. Patient does have a severe stenosis of the proximal right internal carotid artery with an associated string sign. He has a 50 to 60% stenosis of the proximal left internal carotid artery. Stroke risk factors for this patient include hypertension and diabetes mellitus. He has a history of atrial flutter as well and paroxysmal atrial fibrillation may not be completely excluded. 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 Martin. Furthermore, he has some evidence of progression in an L1 compression fracture with associated retropulsed fragments resulting in moderate central canal stenosis. For the acute stroke, he is already taking daily low-dose aspirin and Crestor. I see that clopidogrel 75 mg/day has been added to his medication regimen. The addition of this medication is reasonable and should be continued for 3 weeks. After which, would discontinue low-dose aspirin in favor of Plavix monotherapy. Consider obtaining mobile cardiac outpatient telemetry to rule out paroxysmal atrial fibrillation and potential indication for anticoagulation. Follow-up with echocardiogram. For the severe stenosis of the right internal carotid artery, and moderate stenosis of the left internal carotid artery, would consult vascular surgery. The moderate stenosis of the proximal left internal carotid artery is of uncertain significance. However, the severe stenosis of the proximal right internal carotid artery may need to be addressed either surgically or with stenting. Stenting would need to be done at a tertiary center, probably [facility]. Otherwise, medical management with statins and antiplatelet drugs are appropriate. Continue to monitor patient's blood pressure, systolic blood pressure goal 140 to 160 mmHg acutely. Avoid aggressive treatment of hypertension. For the dementia, I would not start any specific treatment during this hospitalization. He may follow-up with either Linh Orta or Dr. Martin in neurology clinic for consideration of donepezil or memantine. For the L1 compression fracture with associated moderate central canal stenosis, I see that orthopedics has been consulted. I do not think he has significant associated lower extremity weakness. (The right lower extremity is mildly weak, likely related to the acute left hemispheric infarct.) I would defer to orthopedics regarding management decisions going forward. Please contact me if I may be of further assistance. 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 His symptoms are considerably improved this morning. He was seen in neurology clinic 10 days ago for an initial assessment of probable dementia, mixed type. He had scored 24 out of 30 on a standardized Mini-Mental state examination at that time. His past medical history is notable for hypertension and diabetes mellitus. He takes daily low-dose aspirin and Crestor as an outpatient. He has undergone a thorough imaging evaluation including CT of the head, CT angiography of the head and neck, brain MRI, as well as CT and MRI of the lumbar spine. His CT angiography of the neck revealed a severe stenosis of the proximal right internal carotid artery with an associated string sign. There is a 50 to 60% stenosis of the proximal left internal carotid artery. The brain MRI revealed an acute 1 cm infarct within the posterior left frontal lobe in addition to generalized atrophy and chronic small vessel ischemic disease. The above spinal imaging suggests an acute S1 vertebral body fracture and progression in a previously identified L1 compression fracture with associated retropulsed fragments resulting in moderate central canal stenosis. He does not complain of significant low back pain at this time. He denies headache, vision disturbance, change in speech, or difficulty swallowing. He remarks that his right-sided weakness seems to have nearly resolved this morning. Allergies Allergy/AdvReac Type Severity Reaction Status Date / Time metoprolol AdvReac Mild GI SYMPTOMS Verified 10/27/20 10:04 Home Medications Medication Instructions Recorded Confirmed Type amoxicillin 500 mg PO UD 05/30/19 02/25/21 History aspirin 81 mg PO BID 05/30/19 02/25/21 History cholecalciferol (vitamin D3) 1,000 unit PO QAM 05/30/19 02/25/21 History [Vitamin D3] diltiazem HCl 180 mg PO QAM 05/30/19 02/25/21 History furosemide 20 mg PO QAM 05/30/19 02/25/21 History ibuprofen [Advil] 200 mg PO QID PRN 05/30/19 02/25/21 History metformin 850 mg PO TID 05/30/19 02/25/21 History naproxen sodium [Aleve] 440 mg PO QAM PRN 05/30/19 02/25/21 History rosuvastatin 10 mg PO QAM 05/30/19 02/25/21 History tamsulosin 0.4 mg PO QPM 05/30/19 02/25/21 History levothyroxine 100 mcg tablet 100 mcg PO DAILY 02/16/21 02/25/21 History Patient History Medical History Anemia Atrial flutter BPH (benign prostatic hyperplasia) Carotid stenosis Cellulitis Chronic kidney disease Diabetes History of aortic stenosis s/p avr Hyperlipidemia Hypertension Hypothyroid Squamous cell carcinoma Multiple Surgical History S/P AVR (aortic valve replacement) Family History Uncle Parkinson disease Brother Parkinson disease Other Family history non-contributory Social History Smoking Status: Never smoker Second Hand Exposure: No; Do You Dip or Chew Tobacco: No; Tobacco Cessation Education Requested by Patient: No Hx Alcohol Use: No Hx Substance Use: No Preferred Language: Croatian Communication Ability: Effective Communication Ability Comment: patient very hard of hearing. Certified Juvenile Probation Officer Required: No Beliefs That Will Affect Care: None Current Living Situation: Spouse Current Living Situation Comment: home alone with spouse. Other Information That Helps Us Care for You: No Feels Safe at Home: Yes Safety Concerns: Feels Safe At This Time Assistive Devices: Cane Assistive Devices Comment: doesn't always use cane; hearing aids at home with . Review of Systems Constitutional: no fever and no chills Eyes: no blind spots and no diplopia Ear, Nose, Mouth, Throat: + hearing loss Respiratory: no cough and no dyspnea Cardiovascular: no chest pain and no palpitations Gastrointestinal: no nausea and no vomiting Genitourinary: no dysuria Musculoskeletal: no myalgia Integumentary: no rash and no lesions Neurologic: as per Subjective / HPI, + localized weakness and + memory loss; no headache(s) and no abnormal speech Psychiatric: no depression and no anxiety Hematologic / Lymphatic: no easy bleeding and no easy bruising Exam (Neuro) Constitutional: well developed and well nourished; no acute distress Eyes: normal visual hooker by confrontation, PERRL, normal accommodation and EOM intact bilaterally; no fundoscopic abnormality, no nystagmus and no papilledema Cardiovascular: Vessels: + carotid bruit (Carotid bruit appreciated on the left) and normal carotid upstroke Neurologic: Oriented to:: Person and Place; negative Time Memory: Remote Intact; negative Short Term Intact Attention: Span Intact; negative Concentration Intact Language: Naming Objects and Repeating Phrases Speech Fluency: negative Dysarthria Speech Aphasia: negative Aphasia Fund of Knowledge: Current Events, Past History and Vocabulary Cranial Nerves: Normal II (Visual hooker full to confrontation, visual acuity normal), III, IV, (Pupils equal round reactive to light and accommodation, eye movements normal), V (Facial sensation intact), VII (There is no facial droop or weakness), IX, X (Palate elevates to midline), XI (Shoulder shrug intact) and XII (Tongue protrudes to midline); Abnorm VIII (Modestly impaired hearing noted) Motor Strength: Hemiparesis (Very mild) Laterality: Right; negative Normal Lower Extremities, Normal Upper Extremities and Pronator Drift Motor Tone: Normal Lower Extremities and Normal Upper Extremities Muscle Bulk/Involuntary Movements: No Involuntary Movements; negative Muscle Atrophy Sensation: Light Touch Intact, Pain/Temperature Intact, Vibration Intact and Proprioception Intact Coordination: Limited Balance, Finger-Nose Abnormal Laterality: Right and Heel-Huitron Abnormal Laterality: Right; negative Dysdiadochokinesia Deep Tendon Reflexes: Rt Triceps: 2+, Lt Triceps: 2+, Rt Biceps: 2+, Lt Biceps: 2+, Rt Brachioradialis: 2+, Lt Brachioradialis: 2+, Rt Patellar: 2+, Lt Patellar: 2+, Rt Ankle: 1+ and Lt Ankle: 1+ Special Tests: negative Babinski Present Details: Gait not tested in the context of patient's current neurological status. Results & Data ([facility]) Vital Signs (Past 12 Hours) Vital Signs Temp Pulse Pulse Resp BP Pulse Ox 02/26/21 06:40 36.4 C L 74 18 183/73 H 95 02/26/21 03:14 36.6 C 74 20 161/76 H 95 02/25/21 23:19 36.6 C 69 18 165/69 H 97 02/25/21 22:52 36.5 C 82 18 195/75 H 93 02/25/21 22:38 79 Laboratory Results WBC 6.03, hemoglobin 13.7, hematocrit 39.9, platelet count 131, sodium 139, potassium 4.0, BUN 12, creatinine 0.91 glucose 137, hemoglobin A1c 7.4, triglycerides 69, cholesterol 154, LDL 73, VLDL 14, HDL 67, TSH 8.340. Diagnostic Findings Imaging including CT of the head, CT angiography of the head and neck, brain MRI, as well as CT and MRI of the lumbar spine are as described in the history of present illness. I reviewed the images as well as the radiologist's interpretation of these tests. Electrocardiogram reveals a sinus rhythm with marked sinus arrhythmia, premature supraventricular complexes, nonspecific T wave abnormality, heart rate 73 bpm. Coding Level of Care Code 34557 Initial Inpt Care Lvl 3 Diagnoses Stroke I63.9 Carotid stenosis I65.29 Memory impairment R41.3 Compression fracture of L1 lumbar vertebra S32.010A
[2021-02-26] MEDS ORDERED: FUROSEMIDE 20 MG TAB PO SCH (09:00)
[2021-02-26] MEDS ORDERED: ROSUVASTATIN CALCIUM 10 MG TAB PO SCH (09:00)
--- NOTE | 2021-02-26 09:46 | Consultation ---
Date of Consultation February 26, 2021 Assessment & Plan (1) Compression fracture of L1 lumbar vertebra: This fracture appears old along with T11, L3 and L4 fractures. There is only modest stenosis from the retropulsion. No treatment necessary for these. (2) Sacral fracture: There is suspicion for sacral fracture on CT but was not found on MRI. He has no pain here. Most likely does not have an acute sacral fracture. Weight- bear as tolerated. (3) Lumbar spinal stenosis: Patient based on MRI has severe L4-5 central stenosis with associated spondylolisthesis. He is asymptomatic from this. Doubt this is related to the majority of his weakness. Again due to his other acute medical issues will defer treatment. Activity is as tolerated. Certainly if he becomes symptomatic with this in the future were happy to see him in the office as an outpatient. Supervising Physician Co-Signing Physician Notes Dr. Kostas Green History of Present Illness This is a pleasant 86-year-old gentleman that we are asked to see in consultation regarding his lumbar spine. 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 He was also found to have severe stenosis of the right internal carotid artery with a vascular consult pending. He denies back or bilateral lower extremity pain or numbness. He states he ambulates independently at home. Denies any recent falls. Attending Physician: Michael Zuñiga MD Allergies Allergy/AdvReac Type Severity Reaction Status Date / Time metoprolol AdvReac Mild GI SYMPTOMS Verified 10/27/20 10:04 Home Medications Medication Instructions Recorded Confirmed Type amoxicillin 500 mg PO UD 05/30/19 02/25/21 History aspirin 81 mg PO BID 05/30/19 02/25/21 History cholecalciferol (vitamin D3) 1,000 unit PO QAM 05/30/19 02/25/21 History [Vitamin D3] diltiazem HCl 180 mg PO QAM 05/30/19 02/25/21 History furosemide 20 mg PO QAM 05/30/19 02/25/21 History ibuprofen [Advil] 200 mg PO QID PRN 05/30/19 02/25/21 History metformin 850 mg PO TID 05/30/19 02/25/21 History naproxen sodium [Aleve] 440 mg PO QAM PRN 05/30/19 02/25/21 History rosuvastatin 10 mg PO QAM 05/30/19 02/25/21 History tamsulosin 0.4 mg PO QPM 05/30/19 02/25/21 History levothyroxine 100 mcg tablet 100 mcg PO DAILY 02/16/21 02/25/21 History Patient History Medical History Anemia Atrial flutter BPH (benign prostatic hyperplasia) Carotid stenosis Cellulitis Chronic kidney disease Diabetes History of aortic stenosis s/p avr Hyperlipidemia Hypertension Hypothyroid Squamous cell carcinoma Multiple Surgical History S/P AVR (aortic valve replacement) Family History Uncle Parkinson disease Brother Parkinson disease Other Family history non-contributory Social History Smoking Status: Never smoker Second Hand Exposure: No; Do You Dip or Chew Tobacco: No; Tobacco Cessation Education Requested by Patient: No Hx Alcohol Use: No Hx Substance Use: No Preferred Language: Senegalese Communication Ability: Effective Communication Ability Comment: patient very hard of hearing. 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 Other Information That Helps Us Care for You: No Feels Safe at Home: Yes Safety Concerns: Feels Safe At This Time Assistive Devices: Cane Assistive Devices Comment: doesn't always use cane; hearing aids at home with . Review of Systems Review of Systems: All systems reviewed & are unremarkable except as noted in HPI & below Physical Exam Physical Exam: Alert and oriented x3 No acute distress He rolls over and sits up in bed with ease and unassisted No ecchymosis or lacerations throughout the thoracic and lumbar spine He is nontender to palpation and percussion throughout the midline thoracolumbar spine. Nontender over the sciatic notch regions Strength is intact bilateral lower extremities Negative logrolling bilateral lower extremities . Constitutional: WD/WN, vitals as above Eyes: normal visual hooker by confrontation ENMT: external ear and nose normal, oropharynx normal Neck: normal visual inspection Respiratory: normal respiratory effort Cardiovascular: Extremities: normal capillary refill Chest (Breasts): Chest: normal inspection of chest Gastrointestinal (Abdomen): Inspection/Auscultation: abdomen normal to inspection Musculoskeletal: Extremities: extremities normal to inspection Skin: no rashes, warm and dry Neurologic: normal touch/pain/proprioception and moves all extremities Psychiatric: A+Ox3, euthymic affect Results & Data ([facility]) Vital Signs (Past 12 Hours) Vital Signs Temp Pulse Pulse Resp BP Pulse Ox 02/26/21 06:40 36.4 C L 74 18 183/73 H 95 02/26/21 03:14 36.6 C 74 20 161/76 H 95 02/25/21 23:19 36.6 C 69 18 165/69 H 97 02/25/21 22:52 36.5 C 82 18 195/75 H 93 02/25/21 22:38 79 Diagnostic Findings [facility], [id number] Magnetic Resonance Report Patient: TOSHA MILLER JRAdmit Date: 02/25/21MR#: [id number]: [address] [place] DRAcct ID:[id number]: Date: 1935[facility] Zip: [place], [place] [address]Jjp: 86Location: EDSex: MRoom/Bed:Att Phy:Diagnosis: FALL, WEAKNESSPri Phy: Jacinto Mcleod, MDService Date: 02/25/21Fa Phy:Interpreting Phy: Steven Foss MDAdmit Phy: Ordering Phy: Pam Torres M.D. cc: ~ MRI OF THE LUMBAR SPINE WITHOUT IV CONTRAST CLINICAL HISTORY: Compression fractures. COMPARISON STUDY: CT of the lumbar spine dated 02/25/2021. TECHNIQUE: MRI of the lumbar spine is performed utilizing various T1 and T2- weighted sequences in the axial and sagittal planes. IV contrast was not administered for this examination. FINDINGS: Lumbar spine: Marrow signal intensity is heterogeneous. There is a severe chronic compression deformity of L1. Fragments are retropulsed by up to 8 mm. There are minimal chronic superior endplate compression deformities of L3 and L4. There is also a severe chronic compression deformity of T11 with minimal marrow edema. The transverse and spinous processes appear intact. Anterior osteophytes are seen throughout. There is minimal anterolisthesis at L4-L5. Alignment is otherwise preserved. There is straightening of the lumbar lordosis. No destructive bony lesion is seen. Intervertebral discs: Degenerative disc desiccation and mild loss of height is seen throughout the lumbar spine. Spinal cord: The visualized spinal cord is normal in morphology and signal intensity. The conus medullaris terminates at the L1-L2 interspace. T10-T11: A posterior disc bulge causes minimal central canal stenosis. There is moderate bilateral neural foraminal stenosis. T11-T12: A posterior disc bulge and minimally retropulsed fragments are of no consequence. The central canal is clear. There is moderate to severe bilateral neural foraminal stenosis. T12-L1: There are large retropulsed fragments at L1. This causes moderate central canal stenosis with a minimum AP diameter of 6 mm. Moderate to severe bilateral neural foraminal stenosis, right greater than left. L1-L2: The central canal is clear. The neural foramina are patent. L3-L4: There is minimal posterior disc bulge. The central canal is clear. There is bilateral subarticular stenosis. In conjunction with facet arthropathy this causes mild bilateral neural foraminal narrowing. L4-L5: There is broad-based posterior disc bulge. In conjunction with hypertrophy of the ligamentum flavum there is moderate to severe central canal stenosis with a minimum AP diameter of 5 mm. There is severe bilateral subarticular stenosis, right greater than left with impingement on the exiting bilateral L4 nerve roots. In conjunction with facet arthropathy there is moderate bilateral neural foraminal stenosis. L5-S1: There is minimal posterior disc bulge. The central canal is clear. Disc bulge abuts the transiting bilateral nerve roots. Facet arthropathy contributes to mild bilateral neural foraminal stenosis. Sacrum: The visualized sacrum is normal in morphology and signal intensity. The sacral fracture suggested by CT could not be corroborated by MRI. No marrow edema is noted. Soft tissues: There is fatty atrophy of the paraspinous musculature. Peripelvic cysts are noted in both kidneys. The retroperitoneal structures are otherwise grossly unremarkable but incompletely evaluated. Diverticulosis is noted in the partially imaged colon. The bladder wall appears thickened and trabeculated suggesting chronic outlet obstruction. IMPRESSION: 1. There are severe chronic appearing compression deformities of T11 and L1 as above. Retropulsed fragments at L1 contribute to moderate central canal stenosis at this level. 2. Minimal chronic superior endplate compression deformities are noted in L3 and L4. 3. Lumbosacral spondylosis as above with moderate to severe central canal stenosis at L4-L5. See discussion for detailed level by level analysis. 4. There is no marrow edema to confirm sacral fracture as suggested by CT. Dictated: 02/25/2021 3:11 PM Transcribed: 02/25/2021 4:06 PM Faye [id number] [email or web address] Electronically signed by: Steven Foss M.D. 02/25/2021 4:07 PM Dictated: 02/25/21 1511Transcribed: 02/25/21 1606
[2021-02-26] MEDS ORDERED: ROSUVASTATIN CALCIUM 10 MG TAB PO ONE (12:45)
--- NOTE | 2021-02-26 13:20 | Consultation ---
Date of Consultation February 26, 2021 Assessment & Plan (1) Carotid stenosis: This point recommend a right carotid enterectomy for the preocclusive lesion right carotid. I discussed this with his who is going to talk to the rest of the family and then let us know if they like to proceed. If they agree to the surgical procedure, then this will be done tomorrow. 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 He presented to the emergency room with right-sided weakness and a fall. By morning his symptoms improved.He was seen recently by neurology for dementia.He does have a history of hypertension and diabetes mellitus. He is also post TAVAR. In his work-up he was found to have a 1 cm infarct of his posterior left frontal lobe and generalized atrophy and chronic small vessel ischemic disease. CT angios showed a 60% narrowing of his left internal carotid artery and a severe preocclusive string sign stenosis of his right internal carotid artery. Allergies Allergy/AdvReac Type Severity Reaction Status Date / Time metoprolol AdvReac Mild GI SYMPTOMS Verified 10/27/20 10:04 Home Medications Medication Instructions Recorded Confirmed Type amoxicillin 500 mg PO UD 05/30/19 02/25/21 History aspirin 81 mg PO BID 05/30/19 02/25/21 History cholecalciferol (vitamin D3) 1,000 unit PO QAM 05/30/19 02/25/21 History [Vitamin D3] diltiazem HCl 180 mg PO QAM 05/30/19 02/25/21 History furosemide 20 mg PO QAM 05/30/19 02/25/21 History ibuprofen [Advil] 200 mg PO QID PRN 05/30/19 02/25/21 History metformin 850 mg PO TID 05/30/19 02/25/21 History naproxen sodium [Aleve] 440 mg PO QAM PRN 05/30/19 02/25/21 History rosuvastatin 10 mg PO QAM 05/30/19 02/25/21 History tamsulosin 0.4 mg PO QPM 05/30/19 02/25/21 History levothyroxine 100 mcg tablet 100 mcg PO DAILY 02/16/21 02/25/21 History Patient History Medical History Anemia Atrial flutter BPH (benign prostatic hyperplasia) Carotid stenosis Cellulitis Chronic kidney disease Diabetes History of aortic stenosis s/p avr Hyperlipidemia Hypertension Hypothyroid Squamous cell carcinoma Multiple Surgical History S/P AVR (aortic valve replacement) Family History Uncle Parkinson disease Brother Parkinson disease Other Family history non-contributory Social History Smoking Status: Never smoker Second Hand Exposure: No; Do You Dip or Chew Tobacco: No; Tobacco Cessation Education Requested by Patient: No Hx Alcohol Use: No Hx Substance Use: No Preferred Language: Maldivian Communication Ability: Effective Communication Ability Comment: patient very hard of hearing. 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 Other Information That Helps Us Care for You: No Feels Safe at Home: Yes Safety Concerns: Feels Safe At This Time Assistive Devices: Walker Assistive Devices Comment: doesn't always use cane; hearing aids at home with . Review of Systems Review of Systems: Unobtainable due to cognitive status Physical Exam Constitutional: well developed and well nourished; no acute distress Neck: trachea midline Respiratory: normal respiratory effort; no respiratory distress Auscultation: lungs clear to auscultation bilaterally Cardiovascular: Rate/Rhythm: regular rate and regular rhythm Heart Sounds: + murmur (2/6 ROBIN) Extremities: + edema (chronic right leg) Gastrointestinal (Abdomen): Inspection/Auscultation: abdomen normal to inspection Percussion/Palpation: abdomen soft; abdomen nontender Musculoskeletal: Extremities: + abnormal strength (4/5 on right); + abnormal strength Skin: no rashes, warm and dry Neurologic: CN's II-XI intact bilaterally and moves all extremities; no focal motor deficits Psychiatric: dementia mixed type Results & Data ([facility]) Vital Signs (Past 12 Hours) Vital Signs Temp Pulse Resp BP Pulse Ox 02/26/21 11:41 36.4 C L 87 20 121/77 97 02/26/21 06:40 36.4 C L 74 18 183/73 H 95 02/26/21 03:14 36.6 C 74 20 161/76 H 95
[2021-02-26] MEDS ORDERED: PHARMACY GLYCEMIC MGMT CONSULT PRN (14:01)
--- NOTE | 2021-02-26 14:13 | Pharmacy Report ---
Pharmacy Glycemic Short Note 2 - Date of Service February 26, 2021 - Glycemic Short BSG Results (Last 24 hours): 02/25/21 02/25/21 02/26/21 17:55 20:55 06:14 Glucose 137 H POC Glucose 117 H 186 H 02/26/21 02/26/21 07:14 11:17 Glucose POC Glucose 135 H 231 H OUTPATIENT ANTIDIABETIC REGIMEN: * metformin 850 mg tid * A1c 7.4% - 02/26 ASSESSMENT: * 86 year old admitted with stroke like symptoms, stroke workup. Type 2 diabetic managed only on metformin at home * Started on SSI last evening, correctional only. Fasting BSG 135 mg/dL - continue to hold basal * Lunch BSG trending up, likely related to eating at breakfast, plan to tighten and add in CR PLAN FOR INPATIENT GLYCEMIC CONTROL: * Hold outpatient oral diabetes medications * Basal insulin * Lantus - hold for now * Bolus insulin * NovoLog per scale ACHS or Q6hrs while NPO * Goal Range: Low 120 mg/dL - High 160 mg/dL * Correction Factor: 30 mg/dL/unit * Nutritional / Prandial insulin per carb ratio of 1 unit per 10 grams CHO consumed PLAN FOR DISCHARGE: * tbd
--- NOTE | 2021-02-26 14:56 | Emergency Department Note ---
History of Present Illness General Chief complaint: Weakness Stated complaint: FALL, WEAKNESS Source: patient and family () Mode of arrival: ambulatory Limitations: other (Hard of hearing, memory impairment) History of Present Illness Provider complaint: weakness, unable to walk This pt is an 86 yo male who presents to the ED with his who states pt was unable to get up this morning. Pt needed full assistance to get dressed and was unable to ambulate. He states his legs are very weak. His states this is a change from baseline. He has not been ill as recently as yesterday. She has noticed a change in memory. He has been going to workout daily, but became confused and unable to get to the [facility]. He also forgot where one of their properties was located. She denies any specific speech changes or facial droop this morning. He went to bed in usual state of health. Home Medications Medication Instructions Recorded Confirmed Type amoxicillin 500 mg PO UD 05/30/19 02/25/21 History aspirin 81 mg PO BID 05/30/19 02/25/21 History cholecalciferol (vitamin D3) 1,000 unit PO QAM 05/30/19 02/25/21 History [Vitamin D3] diltiazem HCl 180 mg PO QAM 05/30/19 02/25/21 History furosemide 20 mg PO QAM 05/30/19 02/25/21 History ibuprofen [Advil] 200 mg PO QID PRN 05/30/19 02/25/21 History metformin 850 mg PO TID 05/30/19 02/25/21 History naproxen sodium [Aleve] 440 mg PO QAM PRN 05/30/19 02/25/21 History rosuvastatin 10 mg PO QAM 05/30/19 02/25/21 History tamsulosin 0.4 mg PO QPM 05/30/19 02/25/21 History levothyroxine 100 mcg tablet 100 mcg PO DAILY 02/16/21 02/25/21 History Allergies Allergy/AdvReac Type Severity Reaction Status Date / Time metoprolol AdvReac Mild GI SYMPTOMS Verified 10/27/20 10:04 Past Med/Surg History Medical History Anemia Atrial flutter BPH (benign prostatic hyperplasia) Carotid stenosis Cellulitis Chronic kidney disease Diabetes History of aortic stenosis s/p avr Hyperlipidemia Hypertension Hypothyroid Squamous cell carcinoma Multiple Surgical History S/P AVR (aortic valve replacement) Family History Uncle Parkinson disease Brother Parkinson disease Other Family history non-contributory Social History Smoking Status: Never smoker Second Hand Exposure: No; Do You Dip or Chew Tobacco: No; Tobacco Cessation Education Requested by Patient: No Hx Alcohol Use: No Hx Substance Use: No Preferred Language: Pashto Communication Ability: Impaired Communication Ability Comment: patient very hard of hearing. 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 Other Information That Helps Us Care for You: No Feels Safe at Home: Yes Safety Concerns: Feels Safe At This Time Assistive Devices: Oxygen - Continuous Assistive Devices Comment: doesn't always use cane; hearing aids at home with . Review of Systems Other (limited secondary to pt ?dementia and difficulty hearing, history per .) Physical Exam Vital Signs Vital Signs - 24 hr 02/25/21 15:20 02/25/21 15:22 02/25/21 15:30 Temperature Temperature Source Pulse Rate 79 78 66 Pulse Rate [Brachial] Pulse Rate from SpO2 Sensor Respiratory Rate 12 19 18 Respiratory Effort / Characteristics Respiratory Depth Respiratory Pattern Blood Pressure 178/80 H Blood Pressure [Left Arm] Blood Pressure Mean 112 Blood Pressure Mean [Left Arm] Blood Pressure Position [Left Arm] Pulse Oximetry Pulse Oximetry [Left Index Finger] Oxygen Delivery Method Oxygen Delivery Method [Left Index Finger] 02/25/21 16:00 02/25/21 16:30 02/25/21 17:00 Temperature Temperature Source Pulse Rate 75 Pulse Rate [Brachial] Pulse Rate from SpO2 Sensor 82 Respiratory Rate 22 21 20 Respiratory Effort / Characteristics Respiratory Depth Respiratory Pattern Blood Pressure 167/98 H 191/81 H Blood Pressure [Left Arm] Blood Pressure Mean 121 117 Blood Pressure Mean [Left Arm] Blood Pressure Position [Left Arm] Pulse Oximetry 94 Pulse Oximetry [Left Index Finger] Oxygen Delivery Method Oxygen Delivery Method [Left Index Finger] 02/25/21 17:30 02/25/21 17:50 02/25/21 18:05 Temperature 36.5 C Temperature Source Oral Pulse Rate 75 Pulse Rate [Brachial] 82 Pulse Rate from SpO2 Sensor Respiratory Rate 26 H 18 Respiratory Effort / Characteristics Respiratory Depth Respiratory Pattern Blood Pressure 190/84 H Blood Pressure [Left Arm] 195/75 H Blood Pressure Mean 119 Blood Pressure Mean [Left Arm] 115 Blood Pressure Position [Left Arm] Lying Pulse Oximetry 93 Pulse Oximetry [Left Index Finger] Oxygen Delivery Method Oxygen Delivery Method [Left Index Finger] 02/25/21 18:44 02/25/21 22:27 02/25/21 22:38 Temperature Temperature Source Pulse Rate 79 Pulse Rate [Brachial] Pulse Rate from SpO2 Sensor Respiratory Rate Respiratory Effort / Characteristics Non-Labored Spontaneous Respiratory Depth Normal Respiratory Pattern Blood Pressure Blood Pressure [Left Arm] Blood Pressure Mean Blood Pressure Mean [Left Arm] Blood Pressure Position [Left Arm] Pulse Oximetry Pulse Oximetry [Left Index Finger] 93 Oxygen Delivery Method Room Air Oxygen Delivery Method [Left Index Finger] Room Air 02/25/21 22:52 02/25/21 23:19 02/26/21 03:14 Temperature 36.5 C 36.6 C 36.6 C Temperature Source Oral Oral Oral Pulse Rate Pulse Rate [Brachial] 82 69 74 Pulse Rate from SpO2 Sensor Respiratory Rate 18 18 20 Respiratory Effort / Characteristics Non-Labored Spontaneous Respiratory Depth Normal Respiratory Pattern Regular Blood Pressure Blood Pressure [Left Arm] 195/75 H 165/69 H 161/76 H Blood Pressure Mean Blood Pressure Mean [Left Arm] 115 101 104 Blood Pressure Position [Left Arm] Lying Pulse Oximetry 93 97 95 Pulse Oximetry [Left Index Finger] Oxygen Delivery Method Room Air Room Air Room Air Oxygen Delivery Method [Left Index Finger] 02/26/21 06:40 Temperature 36.4 C L Temperature Source Oral Pulse Rate Pulse Rate [Brachial] 74 Pulse Rate from SpO2 Sensor Respiratory Rate 18 Respiratory Effort / Characteristics Respiratory Depth Respiratory Pattern Blood Pressure Blood Pressure [Left Arm] 183/73 H Blood Pressure Mean Blood Pressure Mean [Left Arm] 109 Blood Pressure Position [Left Arm] Pulse Oximetry 95 Pulse Oximetry [Left Index Finger] Oxygen Delivery Method Room Air Oxygen Delivery Method [Left Index Finger] Vital signs reviewed. General: Chronically ill appearing 86 yo male, in no significant distress. HEENT: No scleral icterus, PERRLA, neck supple. Atraumatic. Hard of hearing Cardiovascular: Irregular with ectopic beats, systolic ejection murmur. Rate controlled. Pulmonary: Clear to auscultation bilaterally, normal work of breathing. Abdomen: Soft, nontender, nondistended, positive bowel sounds. Musculoskeletal: Atraumatic, 2-3 + pitting edema bilateral LE. Nontender to palp of cervical, thoracic and lumbar spine. Neurologic: Patient awake alert but unable to state month, generalized weakness to all 4 extremities with slight diminished gear shaper to L, 3/5 strength to straight leg raise BLE. Unable to hold legs against gravity for more than 1-2 sec each. Cranial nerves 2 through 12 grossly intact. Skin: Warm, dry, no rash Course Administered Medications Aspirin (Aspirin 81 Mg Ectab) 81 mg PO [facility] Stop: 03/28/21 08:59 Last Admin: 03/02/21 11:43 Dose: Not Given Documented by: [id number] Admin: 03/01/21 10:32 Dose: 81 mg Documented by: [id number] Admin: 02/28/21 08:29 Dose: 81 mg Documented by: [id number] Admin: 02/27/21 08:11 Dose: 81 mg Documented by: [id number] Admin: 02/26/21 08:10 Dose: 81 mg Documented by: [id number] Clopidogrel Bisulfate (Clopidogrel Bisulfate 75 Mg Tab) [facility] [place]: 03/28/21 08:59 Last Admin: 03/02/21 11:43 Dose: Not Given Documented by: [id number] Admin: 03/01/21 08:55 Dose: 75 mg Documented by: [id number] Admin: 02/28/21 08:29 Dose: 75 mg Documented by: [id number] Admin: 02/27/21 08:11 Dose: 75 mg Documented by: [id number] Admin: 02/26/21 08:10 Dose: 75 mg Documented by: [id number] Diltiazem HCl (Diltiazem Er 180 Mg Capcr) 180 mg PO [facility] Stop: 03/28/21 08:59 Last Admin: 03/02/21 11:43 Dose: Not Given Documented by: [id number] Admin: 03/01/21 08:55 Dose: 180 mg Documented by: [id number] Admin: 02/28/21 09:54 Dose: Not Given Documented by: [id number] Admin: 02/27/21 15:32 Dose: Not Given Documented by: [id number] Admin: 02/26/21 08:10 Dose: 180 mg Documented by: [id number] Docusate Sodium (Docusate Sodium 100 Mg Cap) 100 mg PO BID NILESH Stop: 03/31/21 09:44 Last Admin: 03/02/21 20:43 Dose: Not Given Documented by: [id number] Admin: 03/02/21 11:43 Dose: Not Given Documented by: [id number] Admin: 03/01/21 21:19 Dose: 100 mg Documented by: [id number] Admin: 03/01/21 10:32 Dose: 100 mg Documented by: [id number] Enoxaparin Sodium (Enoxaparin Inj 40 Mg/0.4 Ml Syr) 40 mg SQ QAM NILESH Stop: 03/31/21 08:59 Last Admin: 03/02/21 09:25 Dose: 40 mg Documented by: [id number] Admin: 03/01/21 08:55 Dose: 40 mg Documented by: [id number] Insulin Aspart (Insulin Aspart 100 Units/Ml 3 Ml Pen) 0 units SC Q6 NILESH Stop: 03/28/21 16:29 Last Admin: 03/02/21 17:35 Dose: Not Given Documented by: [id number] Admin: 03/02/21 13:12 Dose: 2 units Documented by: [id number] Cosigned by: [id number] Insulin Glargine (Insulin Glargine Solostar 100 Units/Ml 3 Ml Pen) 12 units SC DAILY NILESH Stop: 03/31/21 08:59 Last Admin: 03/02/21 09:26 Dose: 6 units Documented by: [id number] Cosigned by: [id number] Admin: 03/01/21 08:55 Dose: 12 units Documented by: [id number] Cosigned by: [id number] Levothyroxine Sodium (Levothyroxine Sodium 100 Mcg Tablet) 100 mcg PO DAILYBB [facility] Stop: 03/28/21 06:29 Last Admin: 03/02/21 11:42 Dose: Not Given Documented by: [id number] Admin: 03/01/21 05:27 Dose: 100 mcg Documented by: [id number] Admin: 02/28/21 06:13 Dose: 100 mcg Documented by: [id number] Admin: 02/27/21 06:39 Dose: 100 mcg Documented by: [id number] Admin: 02/26/21 05:41 Dose: 100 mcg Documented by: [id number] Polyethylene Glycol (Polyethylene (Miralax) 17 Gm Pack) 17 gm PO DAILY NILESH Stop: 03/31/21 09:44 Last Admin: 03/02/21 11:43 Dose: Not Given Documented by: [id number] Admin: 03/01/21 10:32 Dose: 17 gm Documented by: [id number] Rosuvastatin Calcium (Rosuvastatin Calcium 20 Mg Tab) 20 mg PO QAM [facility] Stop: 03/29/21 08:59 Last Admin: 03/02/21 11:43 Dose: Not Given Documented by: [id number] Admin: 03/01/21 10:32 Dose: 20 mg Documented by: [id number] Admin: 02/28/21 08:29 Dose: 20 mg Documented by: [id number] Admin: 02/27/21 08:11 Dose: 20 mg Documented by: [id number] Tamsulosin HCl (Tamsulosin Hcl 0.4 Mg Cap) 0.4 mg PO QPM [facility] Stop: 03/27/21 20:59 Last Admin: 03/02/21 20:43 Dose: Not Given Documented by: [id number] Admin: 03/01/21 21:19 Dose: 0.4 mg Documented by: [id number] Admin: 02/28/21 21:04 Dose: 0.4 mg Documented by: [id number] Admin: 02/27/21 21:31 Dose: 0.4 mg Documented by: [id number] Admin: 02/26/21 20:15 Dose: 0.4 mg Documented by: [id number] Admin: 02/25/21 20:57 Dose: 0.4 mg Documented by: [id number] Vitamin D (Cholecalciferol 1,000 Units 25 Mcg Tab) 1,000 [facility] Stop: 03/28/21 08:59 Last Admin: 03/02/21 11:43 Dose: Not Given Documented by: [id number] Admin: 03/01/21 10:32 Dose: 1,000 units Documented by: [id number] Admin: 02/28/21 08:01 Dose: 1,000 units Documented by: [id number] Admin: 02/27/21 08:07 Dose: Not Given Documented by: [id number] Admin: 02/26/21 08:10 Dose: 1,000 units Documented by: [id number] Discontinued Medications Albuterol (Albut/Ipratrop 3mg/0.5mg Neb 3 Ml Vial) 3 ml NEB NOW STA Stop: 03/02/21 00:27 Last Admin: 03/02/21 01:00 Dose: 3 ml Documented by: [id number] Albuterol (Albut/Ipratrop 3mg/0.5mg Neb 3 Ml Vial) Confirm Administered Dose 3 ml .ROUTE .STK-MED ONE Stop: 03/02/21 00:54 Last Admin: 03/02/21 01:09 Dose: 3 ml Documented by: [id number] Bupivacaine HCl/Epinephrine Bitart (Bupivacaine/Epinephrine 0.5% Mpf 1:200,000 30 Ml Vial) Confirm Administered Dose 30 ml .ROUTE .STK-MED ONE Stop: 02/27/21 08:54 Last Admin: 02/27/21 13:25 Dose: 30 ml Documented by: [id number] Cefazolin Sodium (Cefazolin 250 Mg/Ml 1 Gm Vial) Confirm Administered Dose 1,000 mg .ROUTE .ST-MED ONE Stop: 02/27/21 08:54 Last Admin: 02/27/21 13:25 Dose: 1,000 mg Documented by: [id number] Clopidogrel Bisulfate (Clopidogrel Bisulfate 300 Mg Tab) 300 mg PO NOW STA Stop: 02/25/21 20:43 Last Admin: 02/25/21 20:57 Dose: 300 mg Documented by: [id number] Gelatin (Gelatin Sponge Sz 100) Confirm Administered Dose 1 ea .ROUTE .ST-MED ONE Stop: 02/27/21 08:55 Last Admin: 02/27/21 13:27 Dose: 1 ea Documented by: [id number] Heparin Sodium (Porcine) (Heparin (Porcine) 1000 Unit/Ml 10 Ml (Stage Manager Use Only)) Confirm Administered Dose 10,000 units .ROUTE .STK-MED ONE Stop: 02/27/21 08:54 Last Admin: 02/27/21 13:26 Dose: 500 units Documented by: [id number] Sodium Chloride (Nss 1000ml) 1,000 mls @ 125 mls/hr IV .Q8H NILESH Stop: 02/25/21 19:14 Last Infusion: 02/25/21 19:54 Dose: 0 mls/hr Documented by: [id number] Admin: 02/25/21 11:45 Dose: 125 mls/hr Documented by: [id number] Lactated Ringer's (Lr) 1,000 mls @ 80 mls/hr IV .[id number] [facility] Stop: 03/29/21 00:00 Last Admin: 02/27/21 19:22 Dose: Not Given Documented by: [id number] Infusion: 02/27/21 11:22 Dose: 0 mls/hr Documented by: [id number] Admin: 02/27/21 00:20 Dose: 80 mls/hr Documented by: [id number] Cefazolin Sodium (Ancef 2000mg) 2,000 mg in 15 mls @ 3.75 mls/min IV PREOP ONE Stop: 02/27/21 08:00 Last Admin: 02/27/21 11:22 Dose: 3.75 mls/min Documented by: [id number] Phenylephrine HCl 20 mg/ (Dextrose) 502 mls @ 0 mls/hr IV .Q0M NILESH; Protocol Stop: 03/29/21 14:44 Last Admin: 02/28/21 10:30 Dose: Not Given Documented by: [id number] Titration: 02/28/21 10:27 Dose: 0 mcg/kg/min, 0 mls/hr Documented by: [id number] Titration: 02/28/21 08:16 Dose: 0 mcg/kg/min, 0 mls/hr Documented by: [id number] Titration: 02/28/21 06:53 Dose: 0.1 mcg/kg/min, 12.5 mls/hr Documented by: [id number] Titration: 02/28/21 06:48 Dose: 0.2 mcg/kg/min, 25 mls/hr Documented by: [id number] Admin: 02/28/21 00:01 Dose: 0.2 mcg/kg/min, 25 mls/hr Documented by: [id number] Cosigned by: [id number] Titration: 02/28/21 00:01 Dose: 0.2 mcg/kg/min, 25 mls/hr Documented by: [id number] Cosigned by: [id number] Titration: 02/27/21 22:27 Dose: 0.2 mcg/kg/min, 25 mls/hr Documented by: [id number] Titration: 02/27/21 21:31 Dose: 0 mcg/kg/min, 0 mls/hr Documented by: [id number] Titration: 02/27/21 20:42 Dose: 0.2 mcg/kg/min, 25 mls/hr Documented by: [id number] Titration: 02/27/21 19:03 Dose: 0.4 mcg/kg/min, 50 mls/hr Documented by: [id number] Cosigned by: [id number] Titration: 02/27/21 18:47 Dose: 0.4 mcg/kg/min, 50 mls/hr Documented by: [id number] Titration: 02/27/21 18:38 Dose: 0.5 mcg/kg/min, 62.5 mls/hr Documented by: [id number] Titration: 02/27/21 17:15 Dose: 0.7 mcg/kg/min, 87.5 mls/hr Documented by: [id number] Admin: 02/27/21 15:14 Dose: 0.5 mcg/kg/min, 62.5 mls/hr Documented by: [id number] Cosigned by: [id number] Cefazolin Sodium (Ancef 2000mg) 2,000 mg in 15 mls @ 3.75 mls/min IV Q8H NILESH; P rotocol Stop: 02/28/21 04:03 Last Admin: 02/28/21 04:37 Dose: 3.75 mls/min Documented by: [id number] Admin: 02/27/21 21:00 Dose: 3.75 mls/min Documented by: [id number] Lactated Ringer's (Lr) 1,000 mls @ 15 mls/hr IV .Q24H NILESH Stop: 03/29/21 15:06 Last Infusion: 02/28/21 10:28 Dose: 0 mls/hr Documented by: [id number] Infusion: 02/28/21 08:16 Dose: 0 mls/hr Documented by: [id number] Admin: 02/28/21 08:00 Dose: 125 mls/hr Documented by: [id number] Infusion: 02/28/21 08:00 Dose: 125 mls/hr Documented by: [id number] Admin: 02/28/21 00:00 Dose: 125 mls/hr Documented by: [id number] Infusion: 02/27/21 23:31 Dose: 125 mls/hr Documented by: [id number] Admin: 02/27/21 15:31 Dose: 125 mls/hr Documented by: [id number] Furosemide 40 mg/ Syringe 4 mls @ 4 mls/min IV ONE ONE Stop: 03/02/21 01:16 Last Admin: 03/02/21 01:33 Dose: 4 mls/min Documented by: [id number] Furosemide 40 mg/ Syringe 4 mls @ 4 mls/min IV ONE ONE Stop: 03/02/21 15:01 Last Admin: 03/02/21 15:07 Dose: 4 mls/min Documented by: [id number] Insulin Aspart (Insulin Aspart 100 Units/Ml 3 Ml Pen) 0 units SC ACHS NILESH Stop: 03/27/21 20:59 Last Admin: 02/26/21 12:14 Dose: 3 units Documented by: [id number] Cosigned by: [id number] Admin: 02/26/21 08:13 Dose: Not Given Documented by: [id number] Admin: 02/25/21 21:00 Dose: 2 units Documented by: [id number] Cosigned by: [id number] Insulin Aspart (Insulin Aspart 100 Units/Ml 3 Ml Pen) 0 units SC ACHS NILESH Stop: 03/28/21 16:29 Last Admin: 03/02/21 09:24 Dose: 1 units Documented by: [id number] Cosigned by: [id number] Admin: 03/01/21 21:18 Dose: Not Given Documented by: [id number] Admin: 03/01/21 17:51 Dose: 9 units Documented by: [id number] Cosigned by: [id number] Admin: 03/01/21 12:12 Dose: 3 units Documented by: [id number] Cosigned by: [id number] Admin: 03/01/21 08:56 Dose: 5 units Documented by: [id number] Cosigned by: [id number] Admin: 02/28/21 21:03 Dose: Not Given Documented by: [id number] Cosigned by: [id number] Admin: 02/28/21 17:09 Dose: 9 units Documented by: [id number] Cosigned by: [id number] Admin: 02/28/21 12:11 Dose: 10 units Documented by: [id number] Cosigned by: [id number] Admin: 02/28/21 08:00 Dose: 8 units Documented by: [id number] Cosigned by: [id number] Admin: 02/27/21 21:29 Dose: 8 units Documented by: [id number] Cosigned by: [id number] Admin: 02/27/21 16:44 Dose: 5 units Documented by: [id number] Cosigned by: [id number] Admin: 02/27/21 15:32 Dose: Not Given Documented by: [id number] Cosigned by: [id number] Admin: 02/27/21 09:16 Dose: Not Given Documented by: [id number] Admin: 02/26/21 20:25 Dose: Not Given Documented by: [id number] Admin: 02/26/21 17:24 Dose: 5 units Documented by: [id number] Cosigned by: [id number] Insulin Aspart (Insulin Aspart 100 Units/Ml 3 Ml Pen) 0 units SC 0015,0400 [facility] Stop: 02/28/21 04:01 Last Admin: 02/28/21 04:38 Dose: 1 units Documented by: [id number] Cosigned by: [id number] Admin: 02/28/21 00:48 Dose: 5 units Documented by: [id number] Cosigned by: [id number] Insulin Glargine (Insulin Glargine Solostar 100 Units/Ml 3 Ml Pen) 15 units SC DAILY [facility] Stop: 03/30/21 08:59 Last Admin: 02/28/21 08:30 Dose: 15 units Documented by: [id number] Cosigned by: [id number] Insulin Human NPH (Novolin-N (Nph) Per Unit Charge) 15 units SQ TODAY@1730 ONE Stop: 02/27/21 17:31 Last Admin: 02/27/21 16:46 Dose: 15 units Documented by: [id number] Cosigned by: [id number] Ioversol (Optiray 350 500ml) 120 ml IV ONCE ONE Stop: 02/25/21 15:47 Last Admin: 02/25/21 15:46 Dose: 120 ml Documented by: [id number] Ioversol (Optiray 350 500ml) 117 ml IV ONCE ONE Stop: 03/01/21 10:12 Last Admin: 03/01/21 10:11 Dose: 117 ml Documented by: [id number] Lidocaine HCl (Lidocaine Hcl 1% 20 Ml Vial) Confirm Administered Dose 20 ml .ROUTE .STK-MED ONE Stop: 02/27/21 08:54 Last Admin: 02/27/21 13:26 Dose: Not Given Documented by: [id number] Metoprolol Tartrate (Metoprolol Tartrate 1 Mg/Ml Vial) 5 mg IV NOW STA Stop: 03/02/21 00:10 Last Admin: 03/02/21 00:25 Dose: 5 mg Documented by: [id number] Metoprolol Tartrate (Metoprolol Tartrate 1 Mg/Ml Vial) Confirm Administered Dose 5 mg IV .STK-MED ONE Stop: 03/02/21 00:18 Last Admin: 03/02/21 00:28 Dose: Not Given Documented by: [id number] Metoprolol Tartrate (Metoprolol Tartrate 25 Mg Tab) 25 mg PO NOW STA Stop: 03/02/21 01:34 Last Admin: 03/02/21 02:26 Dose: 25 mg Documented by: [id number] Metoprolol Tartrate (Metoprolol Tartrate 1 Mg/Ml Vial) 5 mg IV NOW STA Stop: 03/02/21 01:34 Last Admin: 03/02/21 02:25 Dose: 5 mg Documented by: [id number] Miscellaneous (Stat Iv Infusion Titration Per Protocol) 1 ea N/A NOW STA Stop: 02/27/21 14:23 Last Admin: 02/27/21 19:22 Dose: 1 ea Documented by: [id number] Morphine Sulfate (Morphine Sulfate 2 Mg/Ml Carp) 2 mg IV NOW STA Stop: 03/02/21 02:43 Last Admin: 03/02/21 03:15 Dose: 2 mg Documented by: [id number] Rosuvastatin Calcium (Rosuvastatin Calcium 10 Mg Tab) [facility] Stop: 03/28/21 08:59 Last Admin: 02/26/21 08:10 Dose: 10 mg Documented by: [id number] Rosuvastatin Calcium (Rosuvastatin Calcium 10 Mg Tab) 10 mg PO ONE ONE Stop: 02/26/21 12:46 Last Admin: 02/26/21 13:06 Dose: 10 mg Documented by: [id number] Thrombin (Thrombin For Soln 36018 Unit Kit) Confirm Administered Dose 20,000 units .ROUTE .STK-MED ONE Stop: 02/27/21 08:55 Last Admin: 02/27/21 13:27 Dose: 20,000 units Documented by: [id number] Medical Decision Making Differential Diagnosis Infection, dehydration, metabolic abnormality, hypo/hyperglycemia, electrolyte disturbance, anemia, hypoxia, cardiac sources, intracerebral event, toxicologic, neurologic, as well as other pathologies. Medical Records Attestation: I reviewed the patient's medical records. Home Medications Current Medication List: was personally reviewed by me Laboratory Data Attestation: I reviewed the patient's lab results. Result diagrams: 03/02/21 04:59 03/02/21 09:17 Lab Results 02/25/21 02/25/21 02/25/21 Range/Units 11:08 11:12 11:12 WBC 6.11 (4.8-10.8) K/uL RBC 3.96 L (4.7-6.1) M/uL Hgb 13.1 L (14.0-18.0) g/dL Hct 38.4 L (42-52) % MCV 97.0 (80-100) fL MCH 33.1 (25-34) pg MCHC 34.1 (32-36) g/dL RDW Std Deviation 50.1 H (36.4-46.3) fL RDW Coeff of Kylee 14.1 (11.5-14.5) % Plt Count 143 (130-400) K/uL MPV 10.9 H (7.4-10.4) fL Immature Gran % (Auto) 0.3 % Neut % (Auto) 67.1 % Lymph % (Auto) 15.9 % [place] % (Auto) 12.1 % Eos % (Auto) 4.3 % Baso % (Auto) 0.3 % Neut # (Auto) 4.10 (1.4-6.5) K/uL Lymph # (Auto) 0.97 L (1.2-3.4) K/uL [place] # (Auto) 0.74 H (0.11-0.59) K/uL Eos # (Auto) 0.26 (0-0.5) K/uL Baso # (Auto) 0.02 (0-0.2) K/uL Immature Gran # (Auto) 0.02 (0.00-0.02) K/uL Sodium Potassium Chloride Carbon Dioxide Anion Gap BUN Creatinine Est Cr Clr Drug Dosing Est GFR ( Amer) Est GFR (Non-Af Amer) BUN/Creatinine Ratio Glucose POC Glucose (70-99) mg/dl Estimat Average Glucose mg/dl Hemoglobin A1c (4.5-5.6) % Lactate 1.1 (0.4-2.0) mmol/L Calcium Magnesium Total Bilirubin AST ALT Alkaline Phosphatase Troponin I Total Protein Albumin Globulin Albumin/Globulin Ratio Triglycerides (0-150) mg/dl Cholesterol (0-200) mg/dl LDL Cholesterol, Calc mg/dl VLDL Cholesterol, Calc mg/dl HDL Cholesterol mg/dl Cholesterol/HDL Ratio 25-OH Vitamin D Total (30-100) ng/ml TSH Free T4 (0.8-1.6) ng/dl Urine Color Yellow Urine Appearance Clear (Clear) Urine pH 7.5 (4.5-7.5) Ur Specific [place] 1.014 (1.000-1.030) Urine Protein Negative (Negative) Urine Glucose (UA) Negative (Negative) Urine Ketones Negative (Negative) Urine Blood Negative (Negative) Urine Nitrite Negative (Negative) Urine Bilirubin Negative (Negative) Urine Urobilinogen Negative (Negative) Ur Leukocyte Esterase Negative (Negative) COVID-19 Eval Order SARS-CoV-2 (PCR) (Negative) Influenza Type A (PCR) (Neg) Influenza Type B (PCR) (Neg) RSV (RT-PCR) (Neg) 02/25/21 02/25/21 02/25/21 Range/Units 11:25 11:25 11:25 WBC (4.8-10.8) K/uL RBC (4.7-6.1) M/uL Hgb (14.0-18.0) g/dL Hct (42-52) % MCV (80-100) fL MCH (25-34) pg MCHC (32-36) g/dL RDW Std Deviation (36.4-46.3) fL RDW Coeff of Kylee (11.5-14.5) % Plt Count (130-400) K/uL MPV (7.4-10.4) fL Immature Gran % (Auto) % Neut % (Auto) % Lymph % (Auto) % [place] % (Auto) % Eos % (Auto) % Baso % (Auto) % Neut # (Auto) (1.4-6.5) K/uL Lymph # (Auto) (1.2-3.4) K/uL [place] # (Auto) (0.11-0.59) K/uL Eos # (Auto) (0-0.5) K/uL Baso # (Auto) (0-0.2) K/uL Immature Gran # (Auto) (0.00-0.02) K/uL Sodium Cancelled Potassium Cancelled Chloride Cancelled Carbon Dioxide Cancelled Anion Gap Cancelled BUN Cancelled Creatinine Cancelled Est Cr Clr Drug Dosing Cancelled Est GFR ( Amer) Cancelled Est GFR (Non-Af Amer) Cancelled BUN/Creatinine Ratio Cancelled Glucose Cancelled POC Glucose (70-99) mg/dl Estimat Average Glucose mg/dl Hemoglobin A1c (4.5-5.6) % Lactate (0.4-2.0) mmol/L Calcium Cancelled Magnesium Cancelled Total Bilirubin Cancelled AST Cancelled ALT Cancelled Alkaline Phosphatase Cancelled Troponin I Cancelled Total Protein Cancelled Albumin Cancelled Globulin Cancelled Albumin/Globulin Ratio Cancelled Triglycerides (0-150) mg/dl Cholesterol (0-200) mg/dl LDL Cholesterol, Calc mg/dl VLDL Cholesterol, Calc mg/dl HDL Cholesterol mg/dl Cholesterol/HDL Ratio 25-OH Vitamin D Total (30-100) ng/ml TSH Cancelled Free T4 (0.8-1.6) ng/dl Urine Color Urine Appearance (Clear) Urine pH (4.5-7.5) Ur Specific Anderson (1.000-1.030) Urine Protein (Negative) Urine Glucose (UA) (Negative) Urine Ketones (Negative) Urine Blood (Negative) Urine Nitrite (Negative) Urine Bilirubin (Negative) Urine Urobilinogen (Negative) Ur Leukocyte Esterase (Negative) COVID-19 Eval Order CovFluRsv at [facility] SARS-CoV-2 (PCR) NEGATIVE (Negative) Influenza Type A (PCR) Negative (Neg) Influenza Type B (PCR) Negative (Neg) RSV (RT-PCR) Negative (Neg) 02/25/21 02/25/21 02/25/21 Range/Units 12:10 12:33 17:55 WBC (4.8-10.8) K/uL RBC (4.7-6.1) M/uL Hgb (14.0-18.0) g/dL Hct (42-52) % MCV (80-100) fL MCH (25-34) pg MCHC (32-36) g/dL RDW Std Deviation (36.4-46.3) fL RDW Coeff of Kylee (11.5-14.5) % Plt Count (130-400) K/uL MPV (7.4-10.4) fL Immature Gran % (Auto) % Neut % (Auto) % Lymph % (Auto) % [place] % (Auto) % Eos % (Auto) % Baso % (Auto) % Neut # (Auto) (1.4-6.5) K/uL Lymph # (Auto) (1.2-3.4) K/uL [place] # (Auto) (0.11-0.59) K/uL Eos # (Auto) (0-0.5) K/uL Baso # (Auto) (0-0.2) K/uL Immature Gran # (Auto) (0.00-0.02) K/uL Sodium Cancelled 143 Potassium Cancelled 4.0 Chloride Cancelled 110 H Carbon Dioxide Cancelled 29 Anion Gap Cancelled 4.0 BUN Cancelled 15 Creatinine Cancelled 0.86 Est Cr Clr Drug Dosing Cancelled 62.3 Est GFR ( Amer) Cancelled 89.7 Est GFR (Non-Af Amer) Cancelled 77.4 BUN/Creatinine Ratio Cancelled 17.9 Glucose Cancelled 130 H POC Glucose 117 H (70-99) mg/dl Estimat Average Glucose mg/dl Hemoglobin A1c (4.5-5.6) % Lactate (0.4-2.0) mmol/L Calcium Cancelled 8.2 L Magnesium Cancelled 2.0 Total Bilirubin Cancelled 0.8 AST Cancelled 19 ALT Cancelled 20 Alkaline Phosphatase Cancelled 61 Troponin I Cancelled < 0.015 Total Protein Cancelled 5.5 L Albumin Cancelled 3.3 L Globulin Cancelled 2.2 L Albumin/Globulin Ratio Cancelled 1.5 Triglycerides (0-150) mg/dl Cholesterol (0-200) mg/dl LDL Cholesterol, Calc mg/dl VLDL Cholesterol, Calc mg/dl HDL Cholesterol mg/dl Cholesterol/HDL Ratio 25-OH Vitamin D Total (30-100) ng/ml TSH Cancelled 8.340 H Free T4 1.23 (0.8-1.6) ng/dl Urine Color Urine Appearance (Clear) Urine pH (4.5-7.5) Ur Specific [place] (1.000-1.030) Urine Protein (Negative) Urine Glucose (UA) (Negative) Urine Ketones (Negative) Urine Blood (Negative) Urine Nitrite (Negative) Urine Bilirubin (Negative) Urine Urobilinogen (Negative) Ur Leukocyte Esterase (Negative) COVID-19 Eval Order SARS-CoV-2 (PCR) (Negative) Influenza Type A (PCR) (Neg) Influenza Type B (PCR) (Neg) RSV (RT-PCR) (Neg) 02/25/21 02/26/2102/26/21 Range/Units 20:55 06:14 06:14 WBC 6.03 (4.8-10.8) K/uL RBC 4.06 L (4.7-6.1) M/uL Hgb 13.7 L (14.0-18.0) g/dL Hct 39.9 L (42-52) % MCV 98.3 (80-100) fL MCH 33.7 (25-34) pg MCHC 34.3 (32-36) g/dL RDW Std Deviation 49.6 H (36.4-46.3) fL RDW Coeff of Kylee 14.0 (11.5-14.5) % Plt Count 131 (130-400) K/uL MPV 9.7 (7.4-10.4) fL Immature Gran % (Auto) 0.2 % Neut % (Auto) 65.4 % Lymph % (Auto) 14.8 % [place] % (Auto) 14.1 % Eos % (Auto) 4.8 % Baso % (Auto) 0.7 % Neut # (Auto) 3.95 (1.4-6.5) K/uL Lymph # (Auto) 0.89 L (1.2-3.4) K/uL [place] # (Auto) 0.85 H (0.11-0.59) K/uL Eos # (Auto) 0.29 (0-0.5) K/uL Baso # (Auto) 0.04 (0-0.2) K/uL Immature Gran # (Auto) 0.01 (0.00-0.02) K/uL Sodium 139 Potassium 4.0 Chloride 108 H Carbon Dioxide 27 Anion Gap 5.0 BUN 12 Creatinine 0.91 Est Cr Clr Drug Dosing 58.9 Est GFR ( Amer) 86.9 Est GFR (Non-Af Amer) 75.0 BUN/Creatinine Ratio 13.6 Glucose 137 H POC Glucose 186 H (70-99) mg/dl Estimat Average Glucose mg/dl Hemoglobin A1c (4.5-5.6) % Lactate (0.4-2.0) mmol/L Calcium 9.0 Magnesium Total Bilirubin AST ALT Alkaline Phosphatase Troponin I Total Protein Albumin Globulin Albumin/Globulin Ratio Triglycerides 69 (0-150) mg/dl Cholesterol 154 (0-200) mg/dl LDL Cholesterol, Calc 73 mg/dl VLDL Cholesterol, Calc 14 mg/dl HDL Cholesterol 67 mg/dl Cholesterol/HDL Ratio 2 25-OH Vitamin D Total (30-100) ng/ml TSH Free T4 (0.8-1.6) ng/dl Urine Color Urine Appearance (Clear) Urine pH (4.5-7.5) Ur Specific [place] (1.000-1.030) Urine Protein (Negative) Urine Glucose (UA) (Negative) Urine Ketones (Negative) Urine Blood (Negative) Urine Nitrite (Negative) Urine Bilirubin (Negative) Urine Urobilinogen (Negative) Ur Leukocyte Esterase (Negative) COVID-19 Eval Order SARS-CoV-2 (PCR) (Negative) Influenza Type A (PCR) (Neg) Influenza Type B (PCR) (Neg) RSV (RT-PCR) (Neg) 02/26/21 02/26/21 02/26/21 Range/Units 06:14 06:14 07:14 WBC (4.8-10.8) K/uL RBC (4.7-6.1) M/uL Hgb (14.0-18.0) g/dL Hct (42-52) % MCV (80-100) fL MCH (25-34) pg MCHC (32-36) g/dL RDW Std Deviation (36.4-46.3) fL RDW Coeff of Kylee (11.5-14.5) % Plt Count (130-400) K/uL MPV (7.4-10.4) fL Immature Gran % (Auto) % Neut % (Auto) % Lymph % (Auto) % [place] % (Auto) % Eos % (Auto) % Baso % (Auto) % Neut # (Auto) (1.4-6.5) K/uL Lymph # (Auto) (1.2-3.4) K/uL [place] # (Auto) (0.11-0.59) K/uL Eos # (Auto) (0-0.5) K/uL Baso # (Auto) (0-0.2) K/uL Immature Gran # (Auto) (0.00-0.02) K/uL Sodium Potassium Chloride Carbon Dioxide Anion Gap BUN Creatinine Est Cr Clr Drug Dosing Est GFR ( Amer) Est GFR (Non-Af Amer) BUN/Creatinine Ratio Glucose POC Glucose 135 H (70-99) mg/dl Estimat Average Glucose 166 mg/dl Hemoglobin A1c 7.4 H (4.5-5.6) % Lactate (0.4-2.0) mmol/L Calcium Magnesium Total Bilirubin AST ALT Alkaline Phosphatase Troponin I Total Protein Albumin Globulin Albumin/Globulin Ratio Triglycerides (0-150) mg/dl Cholesterol (0-200) mg/dl LDL Cholesterol, Calc mg/dl VLDL Cholesterol, Calc mg/dl HDL Cholesterol mg/dl Cholesterol/HDL Ratio 25-OH Vitamin D Total 29.9 L (30-100) ng/ml TSH Free T4 (0.8-1.6) ng/dl Urine Color Urine Appearance (Clear) Urine pH (4.5-7.5) Ur Specific [place] (1.000-1.030) Urine Protein (Negative) Urine Glucose (UA) (Negative) Urine Ketones (Negative) Urine Blood (Negative) Urine Nitrite (Negative) Urine Bilirubin (Negative) Urine Urobilinogen (Negative) Ur Leukocyte Esterase (Negative) COVID-19 Eval Order SARS-CoV-2 (PCR) (Negative) Influenza Type A (PCR) (Neg) Influenza Type B (PCR) (Neg) RSV (RT-PCR) (Neg) Imaging Data Radiologist's Impression: Brain MRI 02/25/21 19:15 MRI OF THE BRAIN WITHOUT CONTRAST CLINICAL HISTORY: Right upper extremity weakness. COMPARISON STUDY: Head CT and CTA of the head February 25, 2021. MRI of the brain February 18, 2021. TECHNIQUE: Utilizing a 1.5 Jennifer magnet and dedicated coil, multiplanar, multiecho imaging of the brain was performed without IV contrast. FINDINGS: There has been interval development of a small focus of restricted diffusion within the posterior left frontal lobe within the feng radiata, measuring 1 cm. No additional foci of restricted diffusion are noted. Ventricular dilatation is unchanged. This is due to atrophy. Basal cisterns are patent. There are no extra-axial collections. Flow-voids for the major intracranial vessels are present. White matter T2 hyperintense foci reflect small vessel disease. Calvarial signal is normal. No intracranial masses identified on this unenhanced exam. Sinus mucosal thickening is incidentally noted. IMPRESSION: Interval development of a 1 cm acute infarct within the posterior left frontal lobe. ACT 112: Negative or not required by law. Electronically signed by: Mendel Shelby M.D. 02/26/2021 7:48 AM Chest X-Ray 02/25/21 11:12 XR chest 1V portable CLINICAL HISTORY: weakness COMPARISON STUDY: 05/30/2019 FINDINGS: The cardiac and mediastinal contours remain stable. There is aortic tortuosity/ectasia. There is no lobar consolidation. There is no overt failure. There are no pleural effusions. There is minor basilar atelectasis. There are old rib deformities.[ IMPRESSION: No active disease in the chest. ACT 112: Negative or not required by law. Electronically signed by: John Luke M.D. 02/25/2021 11:[address] 02/25/21 11:12 CT head/brain wo con CLINICAL HISTORY: weakness COMPARISON STUDY: MRI the brain dated 02/18/2021 TECHNIQUE: Axial CT of the brain is performed from the vertex to the skull base. IV contrast was not administered for this examination. A dose lowering technique was utilized adhering to the principles of ALARA. CT DOSE: 823.94 mGycm FINDINGS: No intra or extra-axial mass lesions are visualized. There is no CT evidence of acute cortical infarction. There is no evidence of midline shift. There is no acute hemorrhage. No calvarial fractures are visualized. There are patchy white matter hypodensities likely on a small vessel basis. There is mild ventricular prominence, finding which is felt to be secondary to volume loss. There is mild paranasal sinus mucosal thickening. IMPRESSION: No acute intracranial findings ACT 112: Negative or not required by law. Electronically signed by: John Luke M.D. 02/25/2021 11:[address] 02/25/21 11:[address] WITHOUT CONTRAST CLINICAL HISTORY: BLE weakness, fall COMPARISON STUDY: Lumbar spine radiographs May 30, 2019. CT of the chest, abdomen and pelvis November 10, 2016. TECHNIQUE: Axial images of the lumbar spine were obtained without IV contrast. Sagittal and coronal reconstructions were obtained. FINDINGS: For purposes of numbering on this exam, the L5-S1 disc space is assigned to axial image 334 of [id number]. There is 6 mm of anterolisthesis of L4 and L5 due to facet arthrosis. This is similar to prior radiographs. There is a severe L1 compression fracture. There has been progressive loss of vertebral body height since radiographs of May 30, 2019. Note is made of a 9 mm of retropulsion at this level which results in moderate central canal stenosis. The central canal and neural foramen are suboptimally assessed by CT. There is moderate to severe central canal stenosis at L4-L5. Note is made of severe multilevel facet arthrosis and moderate multilevel degenerative disc disease. There is a possible acute fracture of S1 without significant loss of vertebral body height. The bladder distended. There is trace pelvic ascites. Paravertebral soft tissues are unremarkable. Bilateral renal peripelvic cysts are noted. There are suspected bilateral renal calculi. T11 compression fracture is partially imaged. This is likely old. IMPRESSION: 1. Suspected acute S1 vertebral body fracture without significant loss of vertebral body height. 2. Progressive loss of height of a severe compression fracture of L1 with 9 mm of retropulsion which results in moderate central canal stenosis. Partially imaged T11 compression fracture, likely old. 3. Moderate to severe central canal stenosis at L4-L5, as described above. 4. Severe multilevel facet arthrosis and moderate multilevel degenerative changes within lumbar spine. 5. Distended bladder. Trace pelvic ascites. ACT 112: Negative or not required by law. Electronically signed by: Mendel Shelby M.D. 02/25/2021 12:16 PM Lumbar Spine MRI 02/25/21 14:04 MRI OF THE LUMBAR SPINE WITHOUT IV CONTRAST CLINICAL HISTORY: Compression fractures. COMPARISON STUDY: CT of the lumbar spine dated 02/25/2021. TECHNIQUE: MRI of the lumbar spine is performed utilizing various T1 and T2-we ighted sequences in the axial and sagittal planes. IV contrast was not administered for this examination. FINDINGS: Lumbar spine: Marrow signal intensity is heterogeneous. There is a severe chroni c compression deformity of L1. Fragments are retropulsed by up to 8 mm. There are minimal chronic superior endplate compression deformities of L3 and L4. There is also a severe chronic compression deformity of T11 with minimal marrow edema. The transverse and spinous processes appear intact. Anterior osteophytes are seen throughout. There is minimal anterolisthesis at L4-L5. Alignment is otherwise preserved. There is straightening of the lumbar lordosis. No destructive bony lesion is seen. Intervertebral discs: Degenerative disc desiccation and mild loss of height is seen throughout the lumbar spine. Spinal cord: The visualized spinal cord is normal in morphology and signal intensity. The conus medullaris terminates at the L1-L2 interspace. T10-T11: A posterior disc bulge causes minimal central canal stenosis. There is moderate bilateral neural foraminal stenosis. T11-T12: A posterior disc bulge and minimally retropulsed fragments are of no consequence. The central canal is clear. There is moderate to severe bilateral neural foraminal stenosis. T12-L1: There are large retropulsed fragments at L1. This causes moderate central canal stenosis with a minimum AP diameter of 6 mm. Moderate to severe bilateral neural foraminal stenosis, right greater than left. L1-L2: The central canal is clear. The neural foramina are patent. L3-L4: There is minimal posterior disc bulge. The central canal is clear. There is bilateral subarticular stenosis. In conjunction with facet arthropathy this causes mild bilateral neural foraminal narrowing. L4-L5: There is broad-based posterior disc bulge. In conjunction with hypertrophy of the ligamentum flavum there is moderate to severe central canal stenosis with a minimum AP diameter of 5 mm. There is severe bilateral subarticular stenosis, right greater than left with impingement on the exiting bilateral L4 nerve roots. In conjunction with facet arthropathy there is moderate bilateral neural foraminal stenosis. L5-S1: There is minimal posterior disc bulge. The central canal is clear. Disc bulge abuts the transiting bilateral nerve roots. Facet arthropathy contributes to mild bilateral neural foraminal stenosis. Sacrum: The visualized sacrum is normal in morphology and signal intensity. The sacral fracture suggested by CT could not be corroborated by MRI. No marrow edema is noted. Soft tissues: There is fatty atrophy of the paraspinous musculature. Peripelvic cysts are noted in both kidneys. The retroperitoneal structures are otherwise grossly unremarkable but incompletely evaluated. Diverticulosis is noted in the partially imaged colon. The bladder wall appears thickened and trabeculated suggesting chronic outlet obstruction. IMPRESSION: 1. There are severe chronic appearing compression deformities of T11 and L1 as above. Retropulsed fragments at L1 contribute to moderate central canal stenosis at this level. 2. Minimal chronic superior endplate compression deformities are noted in L3 and L4. 3. Lumbosacral spondylosis as above with moderate to severe central canal stenosis at L4-L5. See discussion for detailed level by level analysis. 4. There is no marrow edema to confirm sacral fracture as suggested by CT. Dictated: 02/25/2021 3:11 PM Transcribed: 02/25/2021 4:06 PM Faye [id number] [facility] Electronically signed by: Steven Foss M.D. 02/25/2021 4:07 PM Head CTA 02/25/21 15:26 CT angio head w con CLINICAL HISTORY: RUE weakness TECHNIQUE: CT angiography of the head was performed in a dynamic helical fashion during intravenous administration of 120 cc of Optiray. MIP imaging was performed. A dose lowering technique was utilized adhering to the principles of ALARA. CT DOSE: 623.43 mGy.cm COMPARISON STUDY: No previous studies for comparison. FINDINGS: There are no lesion suspicious for aneurysm. There are bilateral cavernous and supraclinoid atherosclerotic calcifications with a 40% diameter narrowing of the right supraclinoid internal carotid. There are distal vertebral artery calcifications with a 40% diameter narrowing of distal right vertebral artery. There are mild stenotic lesions involving both posterior cerebral arteries. There are no major intracranial branch occlusions. The dural venous sinuses appear patent as visualized. IMPRESSION: 1. No evidence of major intracranial branch occlusion 2. No evidence of aneurysm 3. Mild intracranial stenotic lesions as described above. ACT 112: Negative or not required by law. Electronically signed by: John Luke M.D. 02/25/2021 3:58 PM Neck CTA 02/25/21 15:26 CT ANGIOGRAPHY OF THE NECK WITH CONTRAST CLINICAL HISTORY: Right upper extremity weakness. COMPARISON STUDY: No previous studies for comparison. Technique: CT angiography of the carotid and vertebral arteries was obtained using Optiray and 3D reconstruction on an independent workstation. NASCET criteria was utilized. Automated exposure control was utilized for the study. A dose lowering technique was utilized adhering to the principles of ALARA. Findings: No significant abnormalities are identified within visualized portions of the lung apices. There is no cervical lymphadenopathy. No dissection is identified within the major vessels of the neck. There is moderate stenosis at the origin of the bilateral vertebral arteries. Note is made of severe stenosis of the proximal right internal carotid artery due to extensive plaque. There is near occlusion of this vessel. The site of narrowing extends for 1.7 cm. There is 50-60% stenosis of the proximal left internal carotid artery. The CTA of the head will be reported separately. There is extensive plaque of the aortic arch and proximal left subclavian artery without stenosis. There is also moderate plaque within the proximal right subclavian artery without stenosis. IMPRESSION: 1. Severe stenosis (95-99%) of the proximal right internal carotid artery with "string sign". 2. 50-60% stenosis of the proximal left internal carotid artery. 3. Moderate stenosis at the origin of the bilateral vertebral arteries. 4. Extensive atherosclerotic plaque, as described above. ACT 112: Negative or not required by law. Electronically signed by: Mendel Shelby M.D. 02/25/2021 4:07 PM Brain MRI 02/25/21 19:15 MRI OF THE BRAIN WITHOUT CONTRAST CLINICAL HISTORY: Right upper extremity weakness. COMPARISON STUDY: Head CT and CTA of the head February 25, 2021. MRI of the brain February 18, 2021. TECHNIQUE: Utilizing a 1.5 Jennifer magnet and dedicated coil, multiplanar, multiecho imaging of the brain was performed without IV contrast. FINDINGS: There has been interval development of a small focus of restricted diffusion within the posterior left frontal lobe within the feng radiata, measuring 1 cm. No additional foci of restricted diffusion are noted. Ventricular dilatation is unchanged. This is due to atrophy. Basal cisterns are patent. There are no extra-axial collections. Flow-voids for the major intracranial vessels are present. White matter T2 hyperintense foci reflect small vessel disease. Calvarial signal is normal. No intracranial masses identified on this unenhanced exam. Sinus mucosal thickening is incidentally noted. IMPRESSION: Interval development of a 1 cm acute infarct within the posterior left frontal lobe. ACT 112: Negative or not required by law. Electronically signed by: Mendel Shelby M.D. 02/26/2021 7:48 AM ECG Data Attestation: I personally reviewed and interpreted this ECG as follows: Indication: + weakness Rate (beats per minute): 73 Rhythm: + sinus with SA ECG Intervals/blocks: + Normal QT ECG [place]: + Normal ECG ST segments: + repolarization abnormalities (nonspecific T wave abnl) ECG Findings: + Other (premature supraventricular complexes) Blood Pressure Blood Pressure Findings: Elevated blood pressure Blood Pressure Disposition: further management by hospitalist KARI Frank This pt was evaluated and appeared to be in no distress. IV access was obtained and lab work was drawn. An order for cardiac monitoring was placed and pt was noted to be in a SR with ectopy at 79 bpm. Pt was hydrated with NSS gently. Pt is concerning for BLE weakness. CT head was negative for acute findings. CT lumbar spine is concerning for worsening L1 comp fx with retropulsion and moderate canal stenosis. This is likely contributing to BLE weakness. Lab work was reassuring, UA is negative and COVID was negative. The pt and were informed of the findings. Pt was d/w the hospitalist service for further management. Impression & Plan Bilateral leg weakness, Compression fracture of L1 lumbar vertebra, Ambulatory dysfunction Discharge Plan Visit Data Chief Complaint: Weakness Stated Complaint: FALL, WEAKNESS ED Provider: Pam Torres Discharge Problem: Bilateral leg weakness, Compression fracture of L1 lumbar vertebra, Ambulatory dysfunction Patient Disposition: Admitted As Inpatient Discharge Instructions Interventions: ED Discharge Assessment Last Done: 02/25/21 17:40 Discharge Problem: Compression fracture of L1 lumbar vertebra Qualifiers: Encounter type: sequela Qualified Code(s): S32.010S - Wedge compression fracture of first lumbar vertebra, sequela
--- NOTE | 2021-02-26 18:36 | XCELERA ---
[id number]
--- NOTE | 2021-02-26 18:58 | Hospitalist Progress Note ---
Date of Service February 26, 2021 Assessment & Plan (1) Acute CVA (cerebrovascular accident): New onset right upper extremity weakness on exam. LKW 02/24, during the night. CTA head/neck -severe stenosis 95 to 99% of proximal right ICA with string sign, 50 to 60% stenosis of proximal left ICA MRI brain w/o contrast - 1 cm acute infarct left posterior frontal lobe TTE - LVEF 55 to 60% with no regional wall motion abnormalities. Severe left atrial dilatation. Bioprosthetic aortic valve with acceptable transvalvular gradient. Continue clopidogrel and aspirin for 3 weeks and then clopidogrel alone Increase rosuvastatin from 10 to 20 mg to make high-dose. LDL 73. Permissive hypertension as below. Blood pressure currently at goal. No current atrial flutter to warrant anticoagulation. We will continue to monitor on telemetry. PT/OT Appreciate neurology consult - Mobile cardiac outpatient telemetry on discharge. (2) Carotid stenosis: Appreciate vascular surgery consult. Discussed with Dr. Leon. Planning on carotid endarterectomy tomorrow. N.p.o. after midnight 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 MRI at that time showed chronic microvascular changes only. Follow-up outpatient neurology (4) Sacral fracture: Ruled out on MRI. (5) Compression fracture of L1 lumbar vertebra: Appreciate orthospine consult. Do not expect this is causing any symptoms at this time. (6) Lumbar spinal stenosis: As above (7) Hypertension: Discontinue furosemide. Allow permissive hypertension but will continue his diltiazem ER 180 mg p.o. every morning to avoid rebound tachycardia. (8) Atrial flutter: Noted to be "transient" on prior notes but no explanation of why he is not on anticoagulation. Reportedly he was on Eliquis at some point although unclear why this was discontinued. Continue diltiazem 180mg PO daily to avoid rebound tachycardia (9) S/P AVR (aortic valve replacement): Noted. No prior details available on admission regarding this. (10) Hypothyroid: TSH elevated in setting of suspected acute CVA. Free T4 normal therefore continue his usual levothyroxine dose which was recently increased regardless. Continue levothyroxine 100 mcg p.o. daily (11) BPH (benign prostatic hyperplasia): Continue tamsulosin 0.4 mg p.o. daily (12) Diabetes: HbA1C 7.4 Hold metformin Since BSG not under control will consult pharmacy for glycemic control in the setting of CVA. (13) DVT prophylaxis: Avoid SCDs but will wrap his usual lymphedematous legs. VTE prophylaxis deferred due to carotid endarterectomy planned for tomorrow. Admission and Anticipated Discharge Date Admission Date: February 26, 2021 Subjective Patient feeling much improved today. Still with some very mild right upper extremity weakness. Not yet been ambulating. Unclear if ongoing lower extremity weakness is chronic versus acute. No change in speech, vision, hearing. Updated his over the phone. Review of Systems Review of Systems: All systems reviewed & are unremarkable except as noted in HPI & below Physical Exam Constitutional: WD/WN, vitals as above Eyes: PERRL, conjunctivae normal, anicteric sclerae (chronic right eye lid mild droop) ENMT: external ear and nose normal, oropharynx normal Neck: trachea midline, no thyromegaly Respiratory: normal respiratory effort, lungs clear to auscultation Cardiovascular: Rate/Rhythm: regular rate and regular rhythm Heart Sounds: + murmur (2/6 ROBIN) Vessels: no JVD Extremities: normal capillary refill and + pedal edema (3+ R > L chronic lymphedema); no calf tenderness Gastrointestinal (Abdomen): Inspection/Auscultation: abdomen normal to inspection and normal bowel sounds Percussion/Palpation: abdomen soft; abdomen nontender, no guarding and abdomen not rigid Musculoskeletal: no cyanosis or clubbing, extremities motor strength 5/5 Skin: + lesion (multiple SKs, aktinic keratoses on face and exposed upper extremities) Neurologic: moves all extremities, + focal motor deficit (pronator drift as below, right elbow flex/ext 4/5, collection coordinator strength 5/5 b/l) and awake Speech / Cognition: normal speech Motor/Sensory: + pronator drift (Mild and improved from admission) Cranial Nerves: PERRL, normal accommodation, EOM intact bilaterally, normal facial strength, tongue midline, normal hearing, able to rotate head bilaterally, able to elevate shoulders bilaterally, no nystagmus and symmetric palate elevation Psychiatric: Orientation: alert, oriented to person and oriented to place; + not oriented to time Eye Contact: good eye contact Speech: normal rate/rhythm/volume of speech Results & Data Results & Data ([facility]) Vital Signs (Past 12 Hours) Vital Signs Temp Pulse Resp BP Pulse Ox 02/26/21 18:31 36.6 C 75 20 137/75 96 02/26/21 16:45 96 02/26/21 14:50 36.5 C 88 20 102/58 L 90 02/26/21 11:41 36.4 C L 87 20 121/77 97 PG Care Time/CCT Total # of Minutes Spent Total Time Spent with Patient: Total time spent is greater than 50% in coordination of care (as documented) at patient's floor/unit and/or counseling patient: Coding Level of Care Code 80028 Subseq Hosp Care Lvl 3 Diagnoses Acute CVA (cerebrovascular accident) I63.9 Carotid stenosis I65.21 Laterality: right Memory impairment R41.3 Sacral fracture S32.10XA Compression fracture of L1 lumbar vertebra S32.010A Lumbar spinal stenosis M48.061 Neurogenic claudication status: without neurogenic claudication Hypertension I10 Hypertension type: essential hypertension Atrial flutter I48.92 Atrial flutter type: unspecified S/P AVR (aortic valve replacement) Z95.2 Hypothyroid E03.9 Hypothyroidism type: unspecified BPH (benign prostatic hyperplasia) N40.0 Lower urinary tract symptom presence: symptoms absent Diabetes E11.59 Diabetes mellitus type: type 2 Diabetes mellitus medical terminologist insulin use: without group home use Diabetes mellitus complication status: with circulatory complication Diabetes mellitus complication detail: with other circulatory complications DVT prophylaxis Z29.9 (1) Lumbar spinal stenosis Neurogenic claudication status: without neurogenic claudication Qualified Code(s): M48.061 - Spinal stenosis, lumbar region without neurogenic maria t dication (2) Hypertension Hypertension type: essential hypertension Qualified Code(s): I10 - Essential (primary) hypertension (3) Atrial flutter Atrial flutter type: unspecified Qualified Code(s): I48.92 - Unspecified atrial flutter (4) Hypothyroid Hypothyroidism type: unspecified Qualified Code(s): E03.9 - Hypothyroidism, unspecified (5) BPH (benign prostatic hyperplasia) Lower urinary tract symptom presence: symptoms absent Qualified Code(s): N40.0 - Benign prostatic hyperplasia without lower urinary tract symptoms (6) Diabetes Diabetes mellitus type: type 2 Diabetes mellitus group home insulin use: without medical terminologist use Diabetes mellitus complication status: with circulatory complication Diabetes mellitus complication detail: with other circulatory complications Qualified Code(s): E11.59 - Type 2 diabetes mellitus with other circulatory complications (7) Carotid stenosis Laterality: right Qualified Code(s): I65.21 - Occlusion and stenosis of right carotid artery
[2021-02-26] MEDS: TAMSULOSIN HCL 0.4 MG CAP PO SCH (20:15)
[2021-02-26] MEDS ORDERED: ENOXAPARIN INJ 40 MG/0.4 ML SYR SQ SCH (21:00)
[2021-02-27] MEDS: LACTATED RINGER'S 1,000 ML IV SCH ×3 (00:20→19:22)
[2021-02-27 06:36] LABS: Basophils # (auto) 0.03 K/uL (0-0.2); Basophils % (auto) 0.4 %; Eosinophils # (auto) 0.37 K/uL (0-0.5); Eosinophils % (auto) 5.5 %; Hematocrit (blood only) 36.5 % (42-52); Hemoglobin 12.7 g/dL (14.0-18.0); Immature Granulocytes # (auto) 0.01 K/uL (0.00-0.02); Immature Granulocytes % (auto) 0.1 %; Lymphocytes % (auto) 17.8 %; Mean Corpuscular Hemoglobin 33.3 pg (25-34); Mean Corpuscular Hgb Conc 34.8 g/dL (32-36); Mean Corpuscular Volume 95.8 fL (80-100); Mean Platelet Volume 9.5 fL (7.4-10.4); Monocytes # (auto) 0.99 K/uL (0.11-0.59); Monocytes % (auto) 14.6 %; Neutrophils # (auto) 4.16 K/uL (1.4-6.5); Neutrophils % (auto) 61.6 %; Platelet Count 111 K/uL (130-400); RDW Standard Deviation 49.5 fL (36.4-46.3); Red Blood Count 3.81 M/uL (4.7-6.1); White Blood Count 6.76 K/uL (4.8-10.8)
[2021-02-27] MEDS: LEVOTHYROXINE SODIUM 100 MCG TABLET PO SCH (06:39)
[2021-02-27 07:05] LABS: BUN Creatinine Ratio 14.8 (10-20); Calcium 8.1 mg/dl (8.5-10.1); Creatinine Clr Calc Pharmacy 60.2 ml/min; Est GFR (African American) 88.5 ml/min; Est GFR (Non-African American) 76.3 ml/min; Potassium 3.9 mmol/L (3.5-5.1)
[2021-02-27] MEDS ORDERED: fentaNYL citrate 100 MCG/2 ML VIAL ONE (07:31)
--- NOTE | 2021-02-27 07:35 | Anesthesiology Consultation ---
Date of Service February 27, 2021 Assessment & Plan (1) Encounter for pre-operative examination: Chart Review Chart Review: Acceptable Risk for Surgery (necessary surgery) and Patient NOT seen in Pre Admission Testing Consults Requested none History Surgery Operation Date: 02/27/21 10:00 Proposed Procedures p Right Carotid Endarterectomy - Drake Leon MD Height/Weight Height: 5 ft 8 in Weight: 83 kg Allergies Allergy/AdvReac Type Severity Reaction Status Date / Time metoprolol AdvReac Mild GI SYMPTOMS Verified 10/27/20 10:04 Medications Home Medications Medication Instructions Recorded Confirmed Last Taken amoxicillin 500 mg PO UD 05/30/19 02/25/21 Unknown aspirin 81 mg PO BID 05/30/19 02/25/21 05/30/19 cholecalciferol (vitamin D3) 1,000 unit PO QAM 05/30/19 02/25/21 05/30/19 [Vitamin D3] diltiazem HCl 180 mg PO QAM 05/30/19 02/25/21 05/30/19 furosemide 20 mg PO QAM 05/30/19 02/25/21 05/30/19 ibuprofen [Advil] 200 mg PO QID PRN 05/30/19 02/25/21 Unknown metformin 850 mg PO TID 05/30/19 02/25/21 05/30/19 naproxen sodium [Aleve] 440 mg PO QAM PRN 05/30/19 02/25/21 05/30/19 rosuvastatin 10 mg PO QAM 05/30/19 02/25/21 05/30/19 tamsulosin 0.4 mg PO QPM 05/30/19 02/25/21 05/29/19 levothyroxine 100 mcg tablet 100 mcg PO DAILY 02/16/21 02/25/21 Unknown Active Medications Generic Name Dose Route Start Last Admin Trade Name Freq PRN Reason Stop Dose Admin Aspirin 81 mg 02/26/21 09:00 02/26/21 08:10 Aspirin 81 Mg Ectab PO 03/28/21 08:59 81 mg QAM NILESH Administration Clopidogrel Bisulfate 75 mg 02/26/21 09:00 02/26/21 08:10 Clopidogrel Bisulfate 75 Mg Tab PO 03/28/21 08:59 75 mg QAM NILESH Administration Diltiazem HCl 180 mg 02/26/21 09:00 02/26/21 08:10 Diltiazem Er 180 Mg Capcr PO 03/28/21 08:59 180 mg QAM NILESH Administration Lactated Ringer's 1,000 mls @ 80 mls/hr 02/27/21 00:00 02/27/21 00:20 Lr IV 03/29/21 00:00 80 mls/hr .[id number] NILESH Administration Insulin Aspart 0 units 02/26/21 16:30 02/26/21 20:25 Insulin Aspart 100 Units/Ml 3 Ml Pen SC 03/28/21 16:29 Not Given ACHS NILESH Levothyroxine Sodium 100 mcg 02/26/21 06:30 02/27/21 06:39 Levothyroxine Sodium 100 Mcg Tablet PO 03/28/21 06:29 100 mcg DAILYBB NILESH Administration Tamsulosin HCl 0.4 mg 02/25/21 21:00 02/26/21 20:15 Tamsulosin Hcl 0.4 Mg Cap PO 03/27/21 20:59 0.4 mg QPM NILESH Administration Vitamin D 1,000 units 02/26/21 09:00 02/26/21 08:10 Cholecalciferol 1,000 Units 25 Mcg Tab PO 03/28/21 08:59 1,000 units QAM NILESH Administration NPO Date Last Intake of Fluids: 02/27/21 Time Last Intake of Fluids: 00:00 Date Last Intake of Solids: 02/26/21 Time Last Intake of Solids: 18:00 Past Medical History Medical History Anemia Atrial flutter BPH (benign prostatic hyperplasia) Carotid stenosis Cellulitis Chronic kidney disease Diabetes History of aortic stenosis s/p avr Hyperlipidemia Hypertension Hypothyroid Squamous cell carcinoma Multiple Past Family History Family History Uncle Parkinson disease Brother Parkinson disease Other Family history non-contributory Past Surgical History Surgical History S/P AVR (aortic valve replacement) Social History Smoking Status: Never smoker Do You Dip or Chew Tobacco: No Hx Alcohol Use: No Hx Substance Use: No Physical Exam Vital Signs Last Vital Signs Temp 36.7 C 02/27/21 07:34 Pulse 70 02/27/21 07:34 Resp 14 02/27/21 07:34 BP 161/78 H 02/27/21 07:34 Pulse Ox 95 02/27/21 07:34 Testing Laboratory Results 02/27/21 06:17 02/27/21 06:17 Hemoglobin A1c 7.4 % (4.5-5.6) H 02/26/21 06:14 Urine Color Yellow 02/25/21 11:08 Urine Appearance Clear (Clear) 02/25/21 11:08 Urine pH 7.5 (4.5-7.5) 02/25/21 11:08 Ur Specific [place] 1.014 (1.000-1.030) 02/25/21 11:08 Urine Protein Negative (Negative) 02/25/21 11:08 Urine Glucose (UA) Negative (Negative) 02/25/21 11:08 Urine Ketones Negative (Negative) 02/25/21 11:08 Urine Nitrite Negative (Negative) 02/25/21 11:08 Ur Leukocyte Esterase Negative (Negative) 02/25/21 11:08 Blood Type O Positive 02/26/21 16:21 Antibody Screen NEGATIVE 02/26/21 16:21 02/26/21 20:17 POC Glucose 129 H Electrocardiogram Date: 02/25/21 Findings: + NSST changes SR with marked arrhythmia, rate 73, premature SVCs Chest X-Ray Date: 02/25/21 XR chest 1V portable CLINICAL HISTORY: weakness COMPARISON STUDY: 05/30/2019 FINDINGS: The cardiac and mediastinal contours remain stable. There is aortic t ortuosity/ectasia. There is no lobar consolidation. There is no overt failure. There are no pleural effusions. There is minor basilar atelectasis. There are old rib deformities.[ IMPRESSION: No active disease in the chest. ACT 112: Negative or not required by law. Electronically signed by: John Luke M.D. 02/25/2021 11:38 AM Dictated: 02/25/[id number]: 02/25/211136 Echocardiogram Date: 02/26/21 EF: 55-60 LV Function: normal Other Findings: + atrial enlargement (severe L atrial dilation) and + LVH (moderate concentric) prosthetic aortic valve Other Testing CT angio head w con CLINICAL HISTORY: RUE weakness TECHNIQUE: CT angiography of the head was performed in a dynamic helical fashion during intravenous administration of 120 cc of Optiray. MIP imaging was performed. A dose lowering technique was utilized adhering to the principles of ALARA. CT DOSE: 623.43 mGy.cm COMPARISON STUDY: No previous studies for comparison. FINDINGS: There are no lesion suspicious for aneurysm. There are bilateral cavernous and supraclinoid atherosclerotic calcifications with a 40% diameter narrowing of the right supraclinoid internal carotid. There are distal vertebral artery calcifications with a 40% diameter narrowing of distal right vertebral artery. There are mild stenotic lesions involving both posterior cerebral arteries. There are no major intracranial branch occlusions. The dural venous sinuses appear patent as visualized. IMPRESSION: 1. No evidence of major intracranial branch occlusion 2. No evidence of aneurysm 3. Mild intracranial stenotic lesions as described above. ACT 112: Negative or not required by law. Electronically signed by: John Luke M.D. 02/25/2021 3:58 PM Dictated: 02/25/21 155Transcribed: 02/25/211552 CT ANGIOGRAPHY OF THE NECK WITH CONTRAST CLINICAL HISTORY: Right upper extremity weakness. COMPARISON STUDY: No previous studies for comparison. Technique: CT angiography of the carotid and vertebral arteries was obtained using Optiray and 3D reconstruction on an independent workstation. NASCET criteria was utilized. Automated exposure control was utilized for the study. A dose lowering technique was utilized adhering to the principles of ALARA. Findings: No significant abnormalities are identified within visualized portions of the lung apices. There is no cervical lymphadenopathy. No dissection is identified within the major vessels of the neck. There is moderate stenosis at the origin of the bilateral vertebral arteries. Note is made of severe stenosis of the proximal right internal carotid artery due to extensive plaque. There is near occlusion of this vessel. The site of narrowing extends for 1.7 cm. There is 50-60% stenosis of the proximal left internal carotid artery. The CTA of the head will be reported separately. There is extensive plaque of the aortic arch and proximal left subclavian artery without stenosis. There is also moderate plaque within the proximal right subclavian artery without stenosis. IMPRESSION: 1. Severe stenosis (95-99%) of the proximal right internal carotid artery with "string sign". 2. 50-60% stenosis of the proximal left internal carotid artery. 3. Moderate stenosis at the origin of the bilateral vertebral arteries. 4. Extensive atherosclerotic plaque, as described above. ACT 112: Negative or not required by law. Electronically signed by: Mendel Shelby M.D. 02/25/2021 4:07 PM Dictated: 02/25/21 1555Transcribed: 02/25/21 1555
--- NOTE | 2021-02-27 07:55 | History & Physical Bridge Note ---
Date of Service February 27, 2021 History & Physical Bridge Note Patient for right carotid endarterectomy today. I have discussed the risks options and benefits of the procedure with the patient's . The patient's understand the risks options and benefits and agrees to the procedure. I have examined the patient, reviewed the History & Physical and in the interval since the performance of the History & Physical I have noted the following changes of clinical significance: no changes noted
[2021-02-27] MEDS ORDERED: ceFAZolin 2000MG 2,000 MG/15 ML SYR IV ONE (07:57)
[2021-02-27] MEDS: CHOLECALCIFEROL 1,000 UNITS 25 MCG TAB PO SCH (08:07)
[2021-02-27] MEDS: ASPIRIN 81 MG ECTAB PO SCH (08:11)
[2021-02-27] MEDS: ROSUVASTATIN CALCIUM 20 MG TAB PO SCH (08:11)
[2021-02-27] MEDS: CLOPIDOGREL BISULFATE 75 MG TAB PO SCH (08:11)
[2021-02-27] MEDS ORDERED: SUGAMMADEX SODIUM 200 MG/2 ML VIAL IV ONE (08:37)
[2021-02-27 08:40] LABS: INR 1.1 (0.9-1.1); Prothrombin Time 10.9 Seconds (9.0-12.0)
[2021-02-27] MEDS ORDERED: BUPIVACAINE/EPINEPHRINE 0.5% MPF 1:200,000 30 ML VIAL ONE (08:53)
[2021-02-27] MEDS ORDERED: HEPARIN (PORCINE) 1000 UNIT/ML 10 ML (CATH LAB USE ONLY) ONE (08:53)
[2021-02-27] MEDS ORDERED: LIDOCAINE 1% LOCAL 20 ML VIAL ONE (08:53)
[2021-02-27] MEDS ORDERED: THROMBIN FOR SOLN 20000 UNIT KIT ONE (08:54)
[2021-02-27] MEDS ORDERED: GELATIN SPONGE SZ 100 ONE (08:54)
[2021-02-27] MEDS: INSULIN ASPART 100 UNITS/ML 3 ML PEN SC SCH ×4 (09:16→21:29)
[2021-02-27] MEDS ORDERED: HYDROmorphone INJ 1 MG/ML SYRINGE IV PRN (09:31)
[2021-02-27] MEDS ORDERED: MEPERIDINE HCL 25 MG/ML CARP/VIAL IV PRN (09:31)
[2021-02-27] MEDS ORDERED: ATROPINE SULFATE 0.1 MG/ML 10ML SYR IV PRN (09:31)
[2021-02-27] MEDS ORDERED: LABETALOL HCL IV 5 MG/ML 20ML IV PRN (09:31)
[2021-02-27] MEDS ORDERED: PHENYLEPHRINE 100MCG/ML 5ML SYR IV PRN ×2 (09:31→14:39)
[2021-02-27] MEDS ORDERED: fentaNYL citrate 100 MCG/2 ML VIAL IV PRN (09:31)
[2021-02-27] MEDS ORDERED: ONDANSETRON INJ 2 MG/ML 2 ML VIAL IV PRN (09:31)
[2021-02-27] MEDS ORDERED: ePHEDrine sulfate 50 MG/ML AMP IV PRN (09:31)
[2021-02-27] MEDS ORDERED: ROCURONIUM BROMIDE 10 MG/ML 5 ML VIAL IV ONE ×2 (12:04→13:15)
[2021-02-27] MEDS ORDERED: LARYING-O-JET KIT (LTA) ONE (12:04)
[2021-02-27] MEDS ORDERED: LIDOCAINE 2% 2 ML VIAL/AMP(20MG/ML) INFIL ONE (12:04)
[2021-02-27] MEDS ORDERED: ONDANSETRON INJ 2 MG/ML 2 ML VIAL ONE (12:04)
[2021-02-27] MEDS ORDERED: DEXAMETHASONE SOD INJ 4 MG/ML VIAL ONE (12:04)
[2021-02-27] MEDS ORDERED: PROPOFOL IV EMULSION 10 MG/ML 20 ML VIAL IV ONE (12:04)
[2021-02-27] MEDS ORDERED: NITROGLYCERIN/D5W 100 MCG/ML BTL ONE (12:08)
[2021-02-27] MEDS ORDERED: PHENYLEPHRINE HCL 10 MG/ML VIAL ONE (12:08)
[2021-02-27] MEDS ORDERED: ePHEDrine sulfate 50 MG/ML SYR ONE (12:08)
--- NOTE | 2021-02-27 13:34 | Operative Report ---
Post Operative Report Pre & Post Diagnosis Operation Date: 02/27/21 10:00 Pre-Op Diagnosis: Right Carotid Stenosis Post-Op Diagnosis: Right Carotid Stenosis I identified the patient and participated in the time-out.: Yes Procedure Operation Date: 02/27/21 10:00 Actual Procedures p Right Carotid Endarterectomy(Right) - Drake Leon MD Surgeon Drake Leon MD Sugar Trucker Tobin,PAC Estimated Blood Loss 100 Findings Consistent with Post-Op Diagnosis Specimens carotid plaque Anesthesia Type General Complications none Disposition Accompanied Patient To Recovery: No Disposition: Recovery Room Indications This is an 86yo male with dementia who had a small left hemisphere stroke with good recovery. He was found to have a string sign of his right carotid artery. Endarterectomy was recommended. I have discussed the risks options and benefits of the procedure with the patient's . The patient's understand the risks options and benefits and agrees to the procedure. Description of Procedure The patient was taken to the operating room and placed in supine position. After general anesthesia was accomplished the right side of the neck was prepped and draped in a sterile manner. The patient was identified and a timeout performed. A longitudinal neck incision was then made coursing along the medial border of the sternocleidomastoid muscle. The incision was taken down through the platysmal layer. The facial vein was identified, ligated, and divided. The common carotid artery was then seen. It was dissected free down to the omohyoid muscle. The dissection was carried upward until the external carotid artery and superior thyroid artery was seen. The superior thyroid artery was slung with a 2-0 silk suture. The external carotid was slung with a red rubber vessel loop. Next the dissection was carried up along the internal carotid artery. This was carried upward to beyond the area of narrowing. The hypoglossal nerve was seen and preserved. The patient was heparinized. After adequate heparinization was accomplished, the internal, external, and common carotid arteries were clamped. A longitudinal arteriotomy was started on the common carotid artery and extended upward along the internal carotid artery to a point beyond the area of narrowing. There was calcified plaque of the internal carotid artery origin causing near occlusion. A Doppler shunt was then placed in the internal, followed by the common carotid artery and held in place with Antwon clamps. There was good back bleeding seen from the internal carotid artery. The endarterectomy was then started in the appropriate plane on the common carotid artery. This was carried upward and the external carotid was everted and endarterectomized. The endarterectomy was then carried up along the internal carotid artery till a nice feathering breakoff point was accomplished beyond the end of the plaque. The endarterectomy was then carried down further on the common carotid artery. At end of the arteriotomy, the plaque was then transected. Under loop magnification, all loose debris and flaps werer removed. There is no distal flap seen at the end of the endarterectomy site. A single tacking stitch was used to tack a small area of plaque that appeared as if it may come loose. The arteriotomy then closed using a bovine patch and a running 6-0 prolene suture. This was done in the usual vascular fashion. Prior to completing the closure, the doppler shunt was removed and the internal and common carotid arteries were reclamped. Backbleeding and forward bleeding was allowed to occur. The flow surface was irrigated with heparinized saline. The final few sutures were then placed and securely tied. Clamps were then removed off the external and common carotid arteries. The clamp was then removed the internal carotid artery. Good distal flow was seen. Adequate hemostasis was seen of the patch. The wound was inspected and adequate hemostasis was obtained. The wound was irrigated with antibiotic solution. It was then closed with a running 3-0 Vicryl suture for the platysmal layer and a 4-0 subcuticular Vicryl suture for the skin edges. Dermabond was used for dressing. The patient left the operation room in satisfactory condition and tolerated the procedure well. All needle and sponge counts were correct at the end of the procedure. Moon Madden Pac assisted due to lack of resident availability and was necessary for prepping, draping, retraction, wound closure defects, subQ and skin closure and was necessary for the case. Moon Madden Pac assisted due to lack of resident availability and was necessary for positioning, draping, retraction, wound closure deep layers, subcutaneous tissue, and skin closure and was necessary for assisting with the case. I attest to the content of the Intraoperative Record and any orders documented therein. Any exceptions are noted below.
[2021-02-27] MEDS ORDERED: ALBUMIN HUMAN 5% 12.5 GM/250 ML VIAL IV ONE (14:17)
[2021-02-27] MEDS ORDERED: STAT IV Infusion **Titration per Protocol STA (14:22)
--- NOTE | 2021-02-27 14:35 | Communication Note ---
Date of Service: February 27, 2021 The patient tolerated the procedure well. He was extubated without incident and is now in the PACU. He is resting comfortably but is easily arousable and is able to follow commands. He sticks his tongue out at midline and can move all of his extremities. His SBP is in the 100s whereas Dr. Leon would like it to be in the 120s. He received 2 L of LR in the OR. He is receiving 500 ml of albumin now and he will be started on a phenylephrine drip. His other vital signs are stable. Dr. Price is now managing the patient and will sign him out of PACU when he is ready.
[2021-02-27] MEDS ORDERED: HEPARIN SOD (PORCINE) 1000 UNIT/ML ONE (15:07)
[2021-02-27] MEDS ORDERED: PROTAMINE SULFATE 10 MG/ML 5 ML VIAL ONE (15:07)
[2021-02-27] MEDS ORDERED: MoRPHine SULFATE 4 MG/ML 1 ML CARP\\VIAL IV PRN (15:07)
[2021-02-27] MEDS ORDERED: oxyCODONE/ACETAMINOPHEN 5mg/325mg TAB PO PRN (15:07)
[2021-02-27] MEDS: PHENYLEPHRINE HCL 20 MG in DEXTROSE 5% 500 ML IV SCH (15:14)
--- NOTE | 2021-02-27 15:30 | Critical Care Consultation ---
Date of Consultation February 27, 2021 Assessment & Plan (1) Carotid stenosis: Reason critically ill: 86yo male with HTN, DM2, atrial flutter, and aortic valve replacement who presented with stroke-like symptoms, now s/p right carotid endarterectomy, in the ICU for post-procedure monitoring. NEURO: CAM ICU: negative Sedation: none Analgesia: morphine 1-4mg IV q2h prn, oxycodone 1-2tab PO q4h prn -Frequent neuro exams -Fall precautions CARDIAC: -Hypertensive pre-procedure, BP soft post-procedure (90-100s/40-50s), currently wnl 120s/60s -Continue phenylephrine gtt -Continue ASA 81mg -Continue clopidogrel 75mg PO qd -Continue diltiazem 180mg PO qAM -Continue rosuvastatin 20mg PO qd RESPIRATORY: -Encourage incentive spirometry GI: Diet: carb-consistent, heart healthy -No other concerns at this time RENAL/ELECTROLYTES: -No significant electrolyte derangement -Replete electrolytes as needed -Continue LR @ 125mL/hr : -Rivera catheter removed; patient urinating without difficulty -Continue tamsulosin 0.4mg PO qPM -Strict I/O's ENDO: -BSG stable -Continue FSG ACHS -Continue ISS -Continue levothyroxine 100mcg PO qd -Continue vitamin D 1000u PO qAM HEME: -H/H stable at this time; platelets 111 -Follow up CBC in AM -Blood type O positive ID: -No concern for infection at this time -Patient afebrile -Continue cefazolin IV q8h INTEGUMENTARY: -No concerns at this time LINES/IV ACCESS: -PIVs intact -Radial line not functioning well on monitoring, may need to be replaced DVT ppx: -SCDs Thank you for allowing us to be part of this patient's care. Please refer to [attending] documentation for any further recommendations. Supervising Physician Co-Signing Physician Notes Dr Salcido was the resident-physician during care of patient. I separately evaluated patient for price portions of the history and the exam. I was present during the critical portion of medical decision making, and I discussed the case with the resident. I generally agree with the findings and plan except for any additions/exceptions noted. Patient seen and examined at bedside. No acute distress. Patient was on 0.06 of phenylephrine at the time of examination. Patient is status post right-sided carotid endarterectomy by Dr. Leon. I was given signout from anesthesiologist. In the OR patient's blood pressure was in the 100s. He was given 2 L of LR as well as albumin 500 mL and subsequently started on phenylephrine as surgeon wants to systolic blood pressure from 120. At the time of examination patient is awake alert oriented x3. Is moving all his extremities. Talking in full sentences. No focal neurological deficit appreciated. He denies any chest pain, no dizziness, no headache, no nausea, no vomiting. Constitutional: No acute distress HEENT: EOMI, PERRLA, right neck incision appreciated Respiratory system: Good air entry bilaterally, no wheeze, rhonchi, mild crackles bilateral lower lobes CVS: S1-S2 positive, positive 4 out of 6 systolic murmur appreciated best at the apex Abdomen: Soft, nontender, nondistended, positive bowel sounds x4 Extremities: +2 pulses bilaterally radialis/ dorsalis pedis, no cyanosis, +2 pitting edema left lower extremity, +3 pitting edema right lower extremity Neuro: Awake alert oriented x3 Psych: Normal mood and affect G/U: No Rivera Right radial arterial line Continue with statin, continue with Plavix I have personally spent 37 minutes of critical care time in the direct management of this patient. This is a life/limb threatening event. This includes time spent evaluating patient, direct bedside care, chart review, placing orders, interpretation of diagnostic studies, discussion with consultants, patient, and/or family members regarding treatment decisions, as well as other required patient management activities. This time is exclusive of all separately billable procedures, and teaching time and separate from and in addition to any other critical care service time. History of Present Illness Attending Physician: Michael Zuñiga MD History of Present Illness 86yo male with HTN, DM2, atrial flutter, and aortic valve replacement who presented with stroke-like symptoms, now s/p right carotid endarterectomy. Patient feels well post-procedure and has no complaints. Denies CP, SOB, abdominal pain, nausea, numbness, tingling, weakness, changes in vision, or other symptoms. Denies pain of any kind. Allergies Allergy/AdvReac Type Severity Reaction Status Date / Time metoprolol AdvReac Mild GI SYMPTOMS Verified 10/27/20 10:04 Home Medications Medication Instructions Recorded Confirmed Type amoxicillin 500 mg PO UD 05/30/19 02/25/21 History aspirin 81 mg PO BID 05/30/19 02/25/21 History cholecalciferol (vitamin D3) 1,000 unit PO QAM 05/30/19 02/25/21 History [Vitamin D3] diltiazem HCl 180 mg PO QAM 05/30/19 02/25/21 History furosemide 20 mg PO QAM 05/30/19 02/25/21 History ibuprofen [Advil] 200 mg PO QID PRN 05/30/19 02/25/21 History metformin 850 mg PO TID 05/30/19 02/25/21 History naproxen sodium [Aleve] 440 mg PO QAM PRN 05/30/19 02/25/21 History rosuvastatin 10 mg PO QAM 05/30/19 02/25/21 History tamsulosin 0.4 mg PO QPM 05/30/19 02/25/21 History levothyroxine 100 mcg tablet 100 mcg PO DAILY 02/16/21 02/25/21 History Patient History Medical History Anemia Atrial flutter BPH (benign prostatic hyperplasia) Carotid stenosis Cellulitis Chronic kidney disease Diabetes History of aortic stenosis s/p avr Hyperlipidemia Hypertension Hypothyroid Squamous cell carcinoma Multiple Surgical History S/P AVR (aortic valve replacement) Family History Uncle Parkinson disease Brother Parkinson disease Other Family history non-contributory Social History Smoking Status: Never smoker Second Hand Exposure: No; Do You Dip or Chew Tobacco: No; Tobacco Cessation Education Requested by Patient: No Hx Alcohol Use: No Hx Substance Use: No Preferred Language: Greek Communication Ability: Impaired Communication Ability Comment: patient very hard of hearing. Back Roller Required: No Beliefs That Will Affect Care: None Current Living Situation: Spouse Current Living Situation Comment: home alone with spouse. Other Information That Helps Us Care for You: No Feels Safe at Home: Yes Safety Concerns: Feels Safe At This Time Assistive Devices: Oxygen - Continuous Assistive Devices Comment: doesn't always use cane; hearing aids at home with . Review of Systems Review of Systems: See HPI Physical Exam Constitutional: well nourished, cooperative and comfortable; no acute distress laying in bed Eyes: PERRL, conjunctivae normal, anicteric sclerae ENMT: Mouth: + dry oral mucous membranes nasal cannula in place Neck: new surgical scar on right neck clean and intact, closed with surgical glue and ismael, mild surrounding ecchymosis, no bleeding or exudate appreciated Respiratory: breath sounds diminished, coarse rales appreciated throughout, respiratory effort normal Cardiovascular: grade 3/6 systolic crescendo-decrescendo murmur appreciated, 3+ pitting edema of the RLE, 2+ pitting edema of the LLE Gastrointestinal (Abdomen): normal bowel sounds, soft, nontender, no hepatosplenomegaly Musculoskeletal: Extremities: strength 5/5 throughout Neurologic: PERRL, EOMI, accommodation nl, no face palsy, no dysarthria CN's II-XI intact bilaterally, moves all extremities and awake; no focal motor deficits and not confused Speech / Cognition: no expressive aphasia Psychiatric: A+Ox3, euthymic affect Genitourinary: no rivera catheter in place Results & Data Results & Data ([facility]) Vital Signs (Past 12 Hours) Vital Signs Temp Pulse Pulse Resp BP BP BP 02/27/21 14:50 36.5 C 749 H 17 106/48 L 02/27/21 14:40 36.5 C 72 17 105/58 L 02/27/21 14:30 36.5 C 79 17 97/75 L 103/48 L 02/27/21 14:20 75 16 92/47 L 107/52 L 02/27/21 14:10 73 17 94/59 L 103/60 02/27/21 14:03 36.4 C L 87 16 111/60 97/77 L 02/27/21 08:44 36.9 C 78 18 165/101 H 02/27/21 07:34 36.7 C 70 14 161/78 H Pulse Ox 02/27/21 14:50 96 02/27/21 14:40 97 02/27/21 14:30 97 02/27/21 14:20 100 02/27/21 14:10 99 02/27/21 14:03 97 02/27/21 08:44 96 02/27/21 07:34 95 02/27/21 06:17 02/27/21 06:17 Resident Activity Tracking Resident Involvement: Resident Care Provided Care Provided: Adult Hospital Medicine (1) Carotid stenosis Laterality: right Qualified Code(s): I65.21 - Occlusion and stenosis of right carotid artery
[2021-02-27] MEDS: dilTIAZem ER 180 MG CAPCR PO SCH (15:32)
--- NOTE | 2021-02-27 15:34 | Anesthesiology Progress Note ---
Date of Service February 27, 2021 Anesthesia Post Procedure Vital Signs Vital Signs: Temp Pulse Pulse Pulse Resp BP BP 02/27/21 15:15 63 126/68 02/27/21 15:10 55 L 135/60 02/27/21 15:06 58 L 99/50 L 02/27/21 15:05 56 L 02/27/21 15:01 69 102/51 L 02/27/21 15:00 77 02/27/21 14:58 81 90/55 L 02/27/21 14:57 83 02/27/21 14:50 36.5 C 749 H 17 02/27/21 14:40 36.5 C 72 17 02/27/21 14:30 36.5 C 79 17 02/27/21 14:20 75 16 02/27/21 14:10 73 17 02/27/21 14:03 36.4 C L 87 16 02/27/21 08:44 36.9 C 78 18 02/27/21 08:15 84 02/27/21 08:10 88 02/27/21 08:05 80 02/27/21 08:00 81 02/27/21 07:55 78 02/27/21 07:50 77 02/27/21 07:45 79 02/27/21 07:40 75 02/27/21 07:35 80 02/27/21 07:34 36.7 C 70 14 161/78 H 02/27/21 07:30 82 02/27/21 07:25 77 02/27/21 07:21 80 02/27/21 07:15 81 02/27/21 07:10 79 02/27/21 07:05 67 02/27/21 07:00 67 02/27/21 06:55 75 02/27/21 06:50 80 02/27/21 06:45 84 02/27/21 06:40 73 02/27/21 06:35 70 02/27/21 06:30 67 02/27/21 06:25 64 02/27/21 06:20 75 02/27/21 06:15 65 02/27/21 06:10 73 02/27/21 06:05 76 02/27/21 06:00 78 02/27/21 05:55 77 02/27/21 05:50 85 02/27/21 05:45 98 H 02/27/21 05:40 88 02/27/21 05:35 98 H 02/27/21 05:30 98 H 02/27/21 05:25 64 02/27/21 05:20 61 02/27/21 05:15 70 02/27/21 05:10 65 02/27/21 05:05 62 02/27/21 05:00 60 02/27/21 04:55 70 02/27/21 04:50 62 02/27/21 00:25 149/66 H 02/26/21 23:16 36.7 C 75 20 176/87 H 02/26/21 18:31 36.6 C 75 20 137/75 02/26/21 16:45 BP BP Pulse Ox 02/27/21 15:15 99 02/27/21 15:10 96 02/27/21 15:06 95 02/27/21 15:05 94 02/27/21 15:01 95 02/27/21 15:00 91 02/27/21 14:58 89 L 02/27/21 14:57 76 L 02/27/21 14:50 106/48 L 96 02/27/21 14:40 105/58 L 97 02/27/21 14:30 97/75 L 103/48 L 97 02/27/21 14:20 92/47 L 107/52 L 100 02/27/21 14:10 94/59 L 103/60 99 02/27/21 14:03 111/60 97/77 L 97 02/27/21 08:44 165/101 H 96 02/27/21 08:15 02/27/21 08:10 02/27/21 08:05 02/27/21 08:00 02/27/21 07:55 02/27/21 07:50 02/27/21 07:45 02/27/21 07:40 02/27/21 07:35 02/27/21 07:34 95 02/27/21 07:30 02/27/21 07:25 02/27/21 07:21 02/27/21 07:15 02/27/21 07:10 02/27/21 07:05 02/27/21 07:00 02/27/21 06:55 02/27/21 06:50 02/27/21 06:45 02/27/21 06:40 02/27/21 06:35 02/27/21 06:30 02/27/21 06:25 02/27/21 06:20 02/27/21 06:15 02/27/21 06:10 02/27/21 06:05 02/27/21 06:00 02/27/21 05:55 02/27/21 05:50 02/27/21 05:45 02/27/21 05:40 02/27/21 05:35 02/27/21 05:30 02/27/21 05:25 02/27/21 05:20 02/27/21 05:15 02/27/21 05:10 02/27/21 05:05 02/27/21 05:00 02/27/21 04:55 02/27/21 04:50 02/27/21 00:25 02/26/21 23:16 94 02/26/21 18:31 96 02/26/21 16:45 96 Transfer of Care Handoff Completed per policy Notes Mental Status: alert / awake / arousable and participated in evaluation Patient Amnestic to Procedure: Yes Nausea / Vomiting: adequately controlled Pain: adequately controlled Airway Patency, RR, SpO2: stable & adequate BP & HR: stable & adequate and see Notes below Hydration State: stable & adequate Anesthetic Complications: no major complications apparent Notes: Patient was managed with albumin bolus for MAPs in the mid 70s, but systolic blood pressures that were still below Dr. Leon's target of >120. Phenylephrine drip was ordered and patient started on drip and transferred to ICU. Transfer call given to Dr. Mclean.
[2021-02-27] MEDS ORDERED: NovoLIN-N (NPH) PER UNIT CHARGE SQ ONE (17:30)
--- NOTE | 2021-02-27 19:07 | Hospitalist Progress Note ---
Date of Service February 27, 2021 Assessment & Plan (1) Acute CVA (cerebrovascular accident): New onset right upper extremity weakness on exam. LKW 02/24, during the night. CTA head/neck -severe stenosis 95 to 99% of proximal right ICA with string sign, 50 to 60% stenosis of proximal left ICA MRI brain w/o contrast - 1 cm acute infarct left posterior frontal lobe TTE - LVEF 55 to 60% with no regional wall motion abnormalities. Severe left atrial dilatation. Bioprosthetic aortic valve with acceptable transvalvular gradient. Continue clopidogrel and aspirin for 3 weeks and then clopidogrel alone Increase rosuvastatin from 10 to 20 mg to make high-dose. LDL 73. Permissive hypertension as below. Blood pressure currently at goal. No current atrial flutter to warrant anticoagulation. We will continue to monitor on telemetry. PT/OT Appreciate neurology consult - Mobile cardiac outpatient telemetry on discharge. (2) Carotid stenosis: Appreciate vascular surgery consult. Right-sided carotid endarterectomy today. 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 MRI at that time showed chronic microvascular changes only. Follow-up outpatient neurology (4) Sacral fracture: Ruled out on MRI. (5) Compression fracture of L1 lumbar vertebra: Appreciate orthospine consult. Do not expect this is causing any symptoms at this time. (6) Lumbar spinal stenosis: As above (7) Hypertension: Discontinue furosemide. Allow permissive hypertension but will continue his diltiazem ER 180 mg p.o. every morning to avoid rebound tachycardia. (8) Atrial flutter: Noted to be "transient" on prior notes but no explanation of why he is not on anticoagulation. ?post operative from aortic stenosis per his 's recolle ction. Reportedly he was on Eliquis at some point although unclear why this was discontinued. Continue diltiazem 180mg PO daily to avoid rebound tachycardia (9) S/P AVR (aortic valve replacement): Noted. No prior details available on admission regarding this. (10) Hypothyroid: TSH elevated in setting of suspected acute CVA. Free T4 normal therefore continue his usual levothyroxine dose which was recently increased regardless. Continue levothyroxine 100 mcg p.o. daily (11) BPH (benign prostatic hyperplasia): Continue tamsulosin 0.4 mg p.o. daily (12) Diabetes: HbA1C 7.4 Hold metformin Appreciate pharmacy glycemic control in the setting of acute CVA. (13) DVT prophylaxis: Avoid SCDs but will wrap his usual lymphedematous legs. VTE prophylaxis deferred due to carotid endarterectomy today Admission and Anticipated Discharge Date Admission Date: February 26, 2021 Subjective Patient seen preoperatively. Planning on carotid endarterectomy today by Dr. Leon. Subjectively no complaints with weakness in his upper extremities today. However did very poorly with physical therapy yesterday with a high falls risk. Recommending rehabilitation on discharge. Review of Systems Review of Systems: All systems reviewed & are unremarkable except as noted in HPI & below Physical Exam Constitutional: WD/WN, vitals as above Eyes: PERRL, conjunctivae normal, anicteric sclerae (chronic left eye lid mild droop) ENMT: external ear and nose normal, oropharynx normal Respiratory: normal respiratory effort, lungs clear to auscultation Cardiovascular: Rate/Rhythm: regular rate and regular rhythm Heart Sounds: + murmur (2/6 ROBIN RUSB) Vessels: no JVD Extremities: normal capillary refill and + pedal edema (3+ R > L chronic lymphedema); no calf tenderness Gastrointestinal (Abdomen): Inspection/Auscultation: abdomen normal to inspection and normal bowel sounds Percussion/Palpation: abdomen soft; abdomen nontender, no guarding and abdomen not rigid Musculoskeletal: no cyanosis or clubbing, extremities motor strength 5/5 Skin: + lesion (multiple SKs, aktinic keratoses on face and exposed upper extremities) Neurologic: moves all extremities and awake Speech / Cognition: normal speech Motor/Sensory: + pronator drift (Mild and marked improved from admission) Cranial Nerves: normal facial strength Psychiatric: Orientation: alert, oriented to person and oriented to place; + not oriented to time Eye Contact: good eye contact Speech: normal rate/r hythm/volume of speech Results & Data Results & Data ([facility]) Vital Signs (Past 12 Hours) Vital Signs Temp Pulse Pulse Pulse Resp BP BP 02/27/21 18:36 60 146/65 H 02/27/21 18:31 61 141/70 H 02/27/21 18:30 61 02/27/21 18:26 69 159/78 H 02/27/21 18:21 59 L 161/67 H 02/27/21 18:16 63 147/68 H 02/27/21 18:11 63 143/65 H 02/27/21 18:06 58 L 141/61 H 02/27/21 18:01 63 130/60 02/27/21 18:00 58 L 02/27/21 17:56 68 128/73 02/27/21 17:51 63 134/63 02/27/21 17:46 68 133/64 02/27/21 17:41 73 124/56 L 02/27/21 17:36 74 116/68 02/27/21 17:31 82 112/52 L 02/27/21 17:30 82 02/27/21 17:26 89 110/61 02/27/21 17:20 82 114/72 02/27/21 17:16 89 100/68 02/27/21 17:11 96 H 104/63 02/27/21 17:05 89 112/63 02/27/21 17:01 88 108/65 02/27/21 17:00 88 02/27/21 16:56 88 107/69 02/27/21 16:52 89 114/67 02/27/21 16:45 67 02/27/21 16:41 85 96/58 L 02/27/21 16:36 78 114/58 L 02/27/21 16:30 69 131/72 02/27/21 16:25 54 L 129/63 02/27/21 16:20 68 138/71 02/27/21 16:15 59 L 129/72 02/27/21 16:10 61 130/68 02/27/21 16:07 36.9 C 02/27/21 16:05 63 138/68 02/27/21 16:00 67 136/71 02/27/21 15:56 70 138/64 02/27/21 15:50 67 122/91 02/27/21 15:46 65 115/71 02/27/21 15:45 73 02/27/21 15:40 68 132/73 02/27/21 15:35 69 131/60 02/27/21 15:31 76 105/69 02/27/21 15:30 67 02/27/21 15:27 72 112/54 L 02/27/21 15:20 63 144/68 H 02/27/21 15:15 63 126/68 02/27/21 15:10 55 L 135/60 02/27/21 15:07 36.9 C 02/27/21 15:06 58 L 99/50 L 02/27/21 15:05 56 L 02/27/21 15:01 69 102/51 L 02/27/21 15:00 77 02/27/21 14:58 81 90/55 L 02/27/21 14:57 83 02/27/21 14:50 36.5 C 749 H 17 02/27/21 14:40 36.5 C 72 17 02/27/21 14:30 36.5 C 79 17 02/27/21 14:20 75 16 02/27/21 14:10 73 17 02/27/21 14:03 36.4 C L 87 16 02/27/21 08:44 36.9 C 78 18 02/27/21 08:15 84 02/27/21 08:10 88 02/27/21 08:05 80 02/27/21 08:00 81 02/27/21 07:55 78 02/27/21 07:50 77 02/27/21 07:45 79 02/27/21 07:40 75 02/27/21 07:35 80 02/27/21 07:34 36.7 C 70 14 161/78 H 02/27/21 07:30 82 02/27/21 07:25 77 02/27/21 07:21 80 02/27/21 07:15 81 02/27/21 07:10 79 BP BP Pulse Ox 02/27/21 18:36 96 02/27/21 18:31 95 02/27/21 18:30 95 02/27/21 18:26 95 02/27/21 18:21 96 02/27/21 18:16 96 02/27/21 18:11 95 02/27/21 18:06 95 02/27/21 18:01 92 02/27/21 18:00 90 02/27/21 17:56 87 L 02/27/21 17:51 89 L 02/27/21 17:46 89 L 02/27/21 17:41 92 02/27/21 17:36 91 02/27/21 17:31 93 02/27/21 17:30 93 02/27/21 17:26 92 02/27/21 17:20 93 02/27/21 17:16 93 02/27/21 17:11 85 L 02/27/21 17:05 83 L 02/27/21 17:01 93 02/27/21 17:00 84 L 02/27/21 16:56 94 02/27/21 16:52 94 02/27/21 16:45 94 02/27/21 16:41 93 02/27/21 16:36 95 02/27/21 16:30 99 02/27/21 16:25 97 02/27/21 16:20 97 02/27/21 16:15 95 02/27/21 16:10 95 02/27/21 16:07 02/27/21 16:05 95 02/27/21 16:00 94 02/27/21 15:56 95 02/27/21 15:50 95 02/27/21 15:46 95 02/27/21 15:45 95 02/27/21 15:40 95 02/27/21 15:35 94 02/27/21 15:31 96 02/27/21 15:30 95 02/27/21 15:27 94 02/27/21 15:20 98 02/27/21 15:15 99 02/27/21 15:10 96 02/27/21 15:07 02/27/21 15:06 95 02/27/21 15:05 94 02/27/21 15:01 95 02/27/21 15:00 91 02/27/21 14:58 89 L 02/27/21 14:57 76 L 02/27/21 14:50 106/48 L 96 02/27/21 14:40 105/58 L 97 02/27/21 14:30 97/75 L 103/48 L 97 02/27/21 14:20 92/47 L 107/52 L 100 02/27/21 14:10 94/59 L 103/60 99 02/27/21 14:03 111/60 97/77 L 97 02/27/21 08:44 165/101 H 96 02/27/21 08:15 02/27/21 08:10 02/27/21 08:05 02/27/21 08:00 02/27/21 07:55 02/27/21 07:50 05/14/21 07:45 02/27/21 07:40 02/27/21 07:35 02/27/21 07:34 95 02/27/21 07:30 02/27/21 07:25 02/27/21 07:21 02/27/21 07:15 02/27/21 07:10 PG Care Time/CCT Total # of Minutes Spent Total Time Spent with Patient: Total time spent is greater than 50% in coordination of care (as documented) at patient's floor/unit and/or counseling patient: Coding Level of Care Code 59913 Subseq Hosp Care Lvl 2 Diagnoses Acute CVA (cerebrovascular accident) I63.9 Carotid stenosis I65.21 Laterality: right Memory impairment R41.3 Sacral fracture S32.10XA Compression fracture of L1 lumbar vertebra S32.010A Lumbar spinal stenosis M48.061 Neurogenic claudication status: without neurogenic claudication Hypertension I10 Hypertension type: essential hypertension Atrial flutter I48.92 Atrial flutter type: unspecified S/P AVR (aortic valve replacement) Z95.2 Hypothyroid E03.9 Hypothyroidism type: unspecified BPH (benign prostatic hyperplasia) N40.0 Lower urinary tract symptom presence: symptoms absent Diabetes E11.59 Diabetes mellitus complication detail: with other circulatory complications Diabetes mellitus complication status: with circulatory complication Diabetes mellitus alf insulin use: without intermission coordinator use Diabetes mellitus type: type 2 DVT prophylaxis Z29.9 (1) BPH (benign prostatic hyperplasia) Lower urinary tract symptom presence: symptoms absent Qualified Code(s): N40.0 - Benign prostatic hyperplasia without lower urinary tract symptoms (2) Carotid stenosis Laterality: right Qualified Code(s): I65.21 - Occlusion and stenosis of right carotid artery (3) Lumbar spinal stenosis Neurogenic claudication status: without neurogenic claudication Qualified Code(s): M48.061 - Spinal stenosis, lumbar region without neurogenic claudication (4) Diabetes Diabetes mellitus complication detail: with other circulatory complications Diabetes mellitus complication status: with circulatory complication Diabetes mellitus alf insulin use: without intermission coordinator use Diabetes mellitus type: type 2 Qualified Code(s): E11.59 - Type 2 diabetes mellitus with other circulatory complications (5) Atrial flutter Atrial flutter type: unspecified Qualified Code(s): I48.92 - Unspecified atrial flutter (6) Hypothyroid Hypothyroidism type: unspecified Qualified Code(s): E03.9 - Hypothyroidism, unspecified (7) Hypertension Hypertension type: essential hypertension Qualified Code(s): I10 - Essential (primary) hypertension
--- NOTE | 2021-02-27 19:18 | Billing Data ---
Date of Service February 27, 2021 Coding Level of Care Code Critical Care 1st 30-74 mins Time Spent (min) 37
[2021-02-27] MEDS: ceFAZolin 2000MG 2,000 MG/15 ML SYR IV SCH (21:00)
[2021-02-27] MEDS: TAMSULOSIN HCL 0.4 MG CAP PO SCH (21:31)
[2021-02-28] MEDS ORDERED: INSULIN ASPART 100 UNITS/ML 3 ML PEN SC SCH
[2021-02-28] MEDS: PHENYLEPHRINE HCL 20 MG in DEXTROSE 5% 500 ML IV SCH ×2 (00:01→10:30)
[2021-02-28] MEDS: INSULIN ASPART 100 UNITS/ML 3 ML PEN SC SCH ×6 (00:48→21:03)
[2021-02-28] MEDS: ceFAZolin 2000MG 2,000 MG/15 ML SYR IV SCH (04:37)
[2021-02-28 04:57] LABS: Basophils # (auto) 0.01 K/uL (0-0.2); Basophils % (auto) 0.1 %; Eosinophils # (auto) 0.07 K/uL (0-0.5); Eosinophils % (auto) 0.8 %; Hematocrit (blood only) 32.6 % (42-52); Hemoglobin 11.3 g/dL (14.0-18.0); Immature Granulocytes # (auto) 0.01 K/uL (0.00-0.02); Immature Granulocytes % (auto) 0.1 %; Lymphocytes # (auto) 0.75 K/uL (1.2-3.4); Lymphocytes % (auto) 8.3 %; Mean Corpuscular Hemoglobin 33.8 pg (25-34); Mean Corpuscular Hgb Conc 34.7 g/dL (32-36); Mean Corpuscular Volume 97.6 fL (80-100); Mean Platelet Volume 9.6 fL (7.4-10.4); Monocytes # (auto) 1.53 K/uL (0.11-0.59); Neutrophils # (auto) 6.63 K/uL (1.4-6.5); Neutrophils % (auto) 73.7 %; Platelet Count 116 K/uL (130-400); RDW Coefficient of Variation 13.8 % (11.5-14.5); RDW Standard Deviation 48.7 fL (36.4-46.3); Red Blood Count 3.34 M/uL (4.7-6.1)
[2021-02-28 05:19] LABS: BUN Creatinine Ratio 17.4 (10-20); Calcium 7.7 mg/dl (8.5-10.1); Creatinine Clr Calc Pharmacy 65.4 ml/min; Est GFR (African American) 91.5 ml/min; Potassium 4.3 mmol/L (3.5-5.1)
[2021-02-28 05:20] LABS: Phosphorus 3.3 mg/dl (2.5-4.9)
[2021-02-28] MEDS: LEVOTHYROXINE SODIUM 100 MCG TABLET PO SCH (06:13)
[2021-02-28] MEDS: LACTATED RINGER'S 1,000 ML IV SCH ×2 (08:00)
[2021-02-28] MEDS: CHOLECALCIFEROL 1,000 UNITS 25 MCG TAB PO SCH (08:01)
[2021-02-28] MEDS ORDERED: oxyCODONE/ACETAMINOPHEN 5mg/325mg TAB PO PRN (08:18)
--- NOTE | 2021-02-28 08:25 | Surgery Progress Note ---
Date of Service February 28, 2021 Assessment & Plan (1) S/P carotid endarterectomy: Doing very well post op. Will transfer to floor. From vascular standpoint, he can be transferred to rehab or be d/c'd to self care at home at any time. Thank you very much for letting us participate in the care of this patient. Admission and Anticipated Discharge Date Admission Date: February 26, 2021 Subjective Patient pleasant with no complaints today. Ate breakfast without difficulty. Physical Exam Constitutional: WD/WN, vitals as above Respiratory: no respiratory distress Cardiovascular: Rate/Rhythm: regular rate and regular rhythm Skin: + incision (dry and clean, mild ecchymosis present) Neurologic: CN's II-XI intact bilaterally and moves all extremities; no focal motor deficits Results & Data ([facility]) Vital Signs (Past 12 Hours) Vital Signs Temp Pulse BP Pulse Ox 02/28/21 06:48 67 116/66 94 02/28/21 06:43 63 115/62 93 02/28/21 06:38 65 129/61 95 02/28/21 06:33 70 112/76 93 02/28/21 06:30 64 95 02/28/21 06:28 72 112/67 94 02/28/21 06:23 63 127/62 95 02/28/21 06:18 74 134/75 92 02/28/21 06:13 67 139/85 94 02/28/21 06:10 68 129/80 95 02/28/21 06:04 66 100/70 97 02/28/21 06:00 71 96 02/28/21 05:54 78 141/106 H 86 L 02/28/21 05:48 72 136/72 94 02/28/21 05:43 69 134/65 94 02/28/21 05:38 72 149/75 H 94 02/28/21 05:34 67 129/66 92 02/28/21 05:30 83 94 02/28/21 05:29 68 125/56 L 93 02/28/21 05:23 69 143/77 H 92 02/28/21 05:18 69 131/80 93 02/28/21 05:13 71 132/81 93 02/28/21 05:08 80 129/74 90 02/28/21 05:03 67 133/66 94 02/28/21 05:00 68 93 02/28/21 04:58 70 126/67 93 02/28/21 04:53 70 133/69 95 02/28/21 04:48 75 123/97 94 02/28/21 04:43 73 127/63 94 02/28/21 04:38 66 128/66 95 02/28/21 04:34 69 117/73 02/28/21 04:28 71 118/54 L 89 L 02/28/21 04:23 69 115/72 92 02/28/21 04:18 71 120/65 95 02/28/21 04:14 68 136/64 95 02/28/21 04:13 72 136/64 94 02/28/21 04:09 80 124/68 95 02/28/21 04:03 86 141/64 H 95 02/28/21 04:00 72 94 02/28/21 03:58 86 137/102 H 85 L 02/28/21 03:53 71 131/69 94 02/28/21 03:48 69 126/66 96 02/28/21 03:43 71 134/63 88 L 02/28/21 03:33 71 126/60 95 02/28/21 03:30 71 94 02/28/21 03:27 73 121/68 94 02/28/21 03:22 71 125/64 93 02/28/21 03:17 71 109/73 94 02/28/21 03:12 69 120/64 94 02/28/21 03:08 67 124/73 88 L 02/28/21 03:03 69 118/57 L 96 02/28/21 03:00 70 95 02/28/21 02:57 68 135/64 96 02/28/21 02:52 72 117/66 96 02/28/21 02:48 70 112/63 95 02/28/21 02:43 70 126/67 98 02/28/21 02:37 76 118/81 95 02/28/21 02:34 81 110/84 95 02/28/21 02:30 64 95 02/28/21 02:27 63 133/64 95 02/28/21 02:22 62 128/62 94 02/28/21 02:17 65 131/61 95 02/28/21 02:12 63 128/70 95 02/28/21 02:07 71 127/66 95 05/15/21 02:02 62 119/63 95 02/28/21 02:00 61 94 02/28/21 01:57 69 113/61 95 02/28/21 01:52 69 116/58 L 94 02/28/21 01:47 65 104/57 L 94 02/28/21 01:43 66 106/53 L 93 02/28/21 01:37 64 105/64 96 02/28/21 01:32 71 112/58 L 95 02/28/21 01:30 70 95 02/28/21 01:27 65 108/59 L 94 02/28/21 01:22 64 103/56 L 95 02/28/21 00:52 68 135/62 92 02/28/21 00:47 61 130/71 95 02/28/21 00:42 60 135/65 94 02/28/21 00:37 66 144/61 H 94 02/28/21 00:32 61 152/63 H 95 02/28/21 00:30 60 94 02/28/21 00:27 57 L 144/63 H 94 02/28/21 00:22 57 L 126/64 94 02/28/21 00:17 66 132/63 94 02/28/21 00:12 62 125/62 96 02/28/21 00:07 67 115/59 L 94 02/28/21 00:02 64 115/60 95 02/28/21 00:00 71 95 02/27/21 23:59 36.7 C 02/27/21 23:57 63 102/64 96 02/27/21 23:52 68 101/70 94 02/27/21 23:42 66 118/72 97 02/27/21 23:37 72 130/86 92 02/27/21 23:32 60 134/67 95 02/27/21 23:30 56 L 94 02/27/21 23:27 50 L 147/77 H 95 02/27/21 23:22 65 140/66 95 02/27/21 23:17 63 152/63 H 95 02/27/21 23:12 59 L 136/73 94 02/27/21 23:07 67 136/64 95 02/27/21 23:02 56 L 142/62 H 95 02/27/21 23:00 58 L 94 02/27/21 22:57 65 133/64 94 02/27/21 22:52 61 123/73 96 02/27/21 22:47 67 127/77 92 02/27/21 22:42 68 140/63 92 02/27/21 22:37 63 129/69 95 02/27/21 22:32 72 124/62 95 02/27/21 22:30 78 92 02/27/21 22:16 69 116/63 97 02/27/21 22:11 64 116/64 95 02/27/21 22:06 72 118/63 94 02/27/21 22:02 64 122/59 L 96 02/27/21 22:00 70 95 02/27/21 21:56 69 122/63 96 02/27/21 21:52 67 117/66 95 02/27/21 21:46 74 131/73 95 02/27/21 21:41 80 130/77 93 02/27/21 21:36 69 134/78 95 02/27/21 21:31 83 140/81 94 02/27/21 21:30 90 89 L 02/27/21 21:26 71 128/77 93 02/27/21 21:21 72 114/66 95
[2021-02-28] MEDS: ASPIRIN 81 MG ECTAB PO SCH (08:29)
[2021-02-28] MEDS: CLOPIDOGREL BISULFATE 75 MG TAB PO SCH (08:29)
[2021-02-28] MEDS: ROSUVASTATIN CALCIUM 20 MG TAB PO SCH (08:29)
[2021-02-28] MEDS ORDERED: INSULIN GLARGINE SOLOSTAR 100 UNITS/ML 3 ML PEN SC SCH (09:00)
--- NOTE | 2021-02-28 09:44 | Pharmacy Report ---
Pharmacy Glycemic Short Note 2 - Date of Service February 28, 2021 - Glycemic Short BSG Results (Last 24 hours): 02/27/21 02/27/21 02/28/21 16:31 20:58 00:12 Glucose POC Glucose 210 H POC Glucose (other) 295 H 239 H 02/28/21 02/28/21 02/28/21 04:22 04:32 07:29 Glucose 161 H POC Glucose 144 H POC Glucose (other) 152 H OUTPATIENT ANTIDIABETIC REGIMEN: * metformin 850 mg tid * A1c 7.4% - 02/26 ASSESSMENT: 02/28 * Pt has received 33 units of insulin over the past 24hrs * 15 units of basal with NPH * 18 units of bolus with NovoLog * BSGs [phone] mg/dl * BSGs elevated yesterday secondary to DXM given intraoperatively. Pt ordered low dose NPH to cover DXM since patient NPO. * Diet advanced back to DMT2- will initiate low dose weight based SQ basal bolus insulin orders while outpatient DM meds on hold. Titrate based on BSG trends. * Goal is to maintain BSGs <180 mg/dl (ideally <150) to prevent post-op infectious complications 02/26 * 86 year old admitted with stroke like symptoms, stroke workup. Type 2 diabetic managed only on metformin at home * Started on SSI last evening, correctional only. Fasting BSG 135 mg/dL - continue to hold basal * Lunch BSG trending up, likely related to eating at breakfast, plan to tighten and add in CR PLAN FOR INPATIENT GLYCEMIC CONTROL: * Hold outpatient oral diabetes medications * Basal insulin * Lantus 15 units (~0.2 units/kg) Sq daily * Bolus insulin * NovoLog per scale ACHS or Q6hrs while NPO * Goal Range: Low 110 mg/dL - High 140 mg/dL * Correction Factor: 20 mg/dL/unit * Nutritional / Prandial insulin per carb ratio of 1 unit per 7 grams CHO consumed PLAN FOR DISCHARGE: * A1c is in goal range for patient based on age/co-morbidities. No changes needed to outpatient regimen
--- NOTE | 2021-02-28 09:53 | Hospitalist Progress Note ---
Date of Service February 28, 2021 Assessment & Plan (1) Acute CVA (cerebrovascular accident): New onset right upper extremity weakness on exam. LKW 02/24, during the night. CTA head/neck -severe stenosis 95 to 99% of proximal right ICA with string sign, 50 to 60% stenosis of proximal left ICA MRI brain w/o contrast - 1 cm acute infarct left posterior frontal lobe TTE - LVEF 55 to 60% with no regional wall motion abnormalities. Severe left atrial dilatation. Bioprosthetic aortic valve with acceptable transvalvular gradient. Continue clopidogrel and aspirin for 3 weeks and then clopidogrel alone Increase rosuvastatin from 10 to 20 mg to make high-dose. LDL 73. Start to aim sBP 140-160 No current atrial flutter to warrant anticoagulation. We will continue to monitor on telemetry. PT/OT - planning on rehabilitation as still weak on ambulation and unbalanced Appreciate neurology consult - Mobile cardiac outpatient telemetry on discharge. (2) Carotid stenosis: Appreciate vascular surgery consult. Doing well post-operatively. Post-op carotid endarterectomy 02/27. 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 MRI at that time showed chronic microvascular changes only. Follow-up outpatient neurology (4) Sacral fracture: Ruled out on MRI. (5) Compression fracture of L1 lumbar vertebra: Appreciate ortho-spine consult. Do not expect this is causing any symptoms at this time. (6) Lumbar spinal stenosis: As above (7) Hypertension: Discontinue furosemide. Aim BP 140-160 -l continue his diltiazem ER 180 mg p.o. every morning to avoid rebound tachycardia. (8) Atrial flutter: Noted to be "transient" on prior notes but no explanation of why he is not on anticoagulation. ?post operative from aortic stenosis per his 's recollection. Reportedly he was on Eliquis at some point although unclear why this was discontinued - suspect due to transient nature post operatively. Continue diltiazem 180mg PO daily to avoid rebound tachycardia (9) S/P AVR (aortic valve replacement): Noted. No prior details available on admission regarding this. (10) Hypothyroid: TSH elevated in setting of suspected acute CVA. Free T4 normal therefore continue his usual levothyroxine dose which was recently increased regardless. Continue levothyroxine 100 mcg p.o. daily (11) BPH (benign prostatic hyperplasia): Continue tamsulosin 0.4 mg p.o. daily (12) Diabetes: HbA1C 7.4 Hold metformin Appreciate pharmacy glycemic control in the setting of acute CVA. (13) DVT prophylaxis: Avoid SCDs but will wrap his usual lymphedematous legs. VTE prophylaxis deferred due to carotid endarterectomy, will start lovenox tomorrow. Admission and Anticipated Discharge Date Admission Date: February 26, 2021 Subjective Patient doing well post operatively. On phenylephrine overnight to keep BP > 120 but now off this and vascular ok to transfer outside of ICU. Wet sounding occasional cough. Not related to eating. No new weakness or change in sensation. No change in speech, vision or hearing. Review of Systems Review of Systems: All systems reviewed & are unremarkable except as noted in HPI & below Physical Exam Constitutional: WD/WN, vitals as above Eyes: PERRL, conjunctivae normal, anicteric sclerae (chronic left eye lid mild droop) Neck: Surgical incision appears C/D/I mild ecchymosis surrounding incision down to clavicle. Respiratory: normal respiratory effort, lungs clear to auscultation + cough (occasional wet) Cardiovascular: Rate/Rhythm: regular rate and regular rhythm Heart Sounds: + murmur (3/6 ROBIN RUSB/apex) Vessels: no JVD Extremities: normal capillary refill and + pedal edema (3+ R > L chronic lymphedema); no calf tenderness Gastrointestinal (Abdomen): Inspection/Auscultation: abdomen normal to inspection and normal bowel sounds Percussion/Palpation: abdomen soft; abdomen nontender, no guarding and abdomen not rigid Skin: + lesion (multiple SKs, aktinic keratoses on face and exposed upper extremities) Neurologic: moves all extremities and awake Speech / Cognition: normal speech Motor/Sensory: + pronator drift (Mild right pronator drift remains) Cranial Nerves: normal facial strength Psychiatric: Orientation: alert, oriented to person, oriented to place and oriented to time Eye Contact: good eye contact Speech: normal rate/rhythm/volume of speech Results & Data Results & Data ([facility]) Vital Signs (Past 12 Hours) Vital Signs Temp Pulse Resp BP Pulse Ox 02/28/21 09:41 64 118/63 02/28/21 09:30 67 02/28/21 09:26 65 104/47 L 02/28/21 09:15 77 110/54 L 02/28/21 09:14 74 02/28/21 08:57 71 97/49 L 94 02/28/21 08:41 81 95/53 L 78 L 02/28/21 08:30 72 94 02/28/21 08:28 65 92 02/28/21 08:26 65 90/49 L 90 02/28/21 08:25 68 97/51 L 95 02/28/21 08:24 67 90/51 L 94 02/28/21 08:18 36.6 C 02/28/21 08:11 76 100/52 L 94 02/28/21 08:00 76 81 L 02/28/21 07:57 83 20 118/66 92 02/28/21 07:41 70 150/82 H 94 02/28/21 07:27 60 125/66 95 02/28/21 07:11 67 126/82 95 02/28/21 07:00 65 91 02/28/21 06:53 71 124/70 94 02/28/21 06:48 67 116/66 94 02/28/21 06:43 63 115/62 93 02/28/21 06:38 65 129/61 95 02/28/21 06:33 70 112/76 93 02/28/21 06:30 64 95 02/28/21 06:28 72 112/67 94 02/28/21 06:23 63 127/62 95 02/28/21 06:18 74 134/75 92 02/28/21 06:13 67 139/85 94 02/28/21 06:10 68 129/80 95 02/28/21 06:04 66 100/70 97 02/28/21 06:00 71 96 02/28/21 05:54 78 141/106 H 86 L 02/28/21 05:48 72 136/72 94 02/28/21 05:43 69 134/65 94 02/28/21 05:38 72 149/75 H 94 02/28/21 05:34 67 129/66 92 02/28/21 05:30 83 94 02/28/21 05:29 68 125/56 L 93 02/28/21 05:23 69 143/77 H 92 02/28/21 05:18 69 131/80 93 02/28/21 05:13 71 132/81 93 02/28/21 05:08 80 129/74 90 02/28/21 05:03 67 133/66 94 02/28/21 05:00 68 93 02/28/21 04:58 70 126/67 93 02/28/21 04:53 70 133/69 95 02/28/21 04:48 75 123/97 94 02/28/21 04:43 73 127/63 94 02/28/21 04:38 66 128/66 95 02/28/21 04:34 69 117/73 02/28/21 04:28 71 118/54 L 89 L 02/28/21 04:23 69 115/72 92 02/28/21 04:18 71 120/65 95 02/28/21 04:14 68 136/64 95 02/28/21 04:13 72 136/64 94 02/28/21 04:09 80 124/68 95 02/28/21 04:03 86 141/64 H 95 02/28/21 04:00 72 94 02/28/21 03:58 86 137/102 H 85 L 02/28/21 03:53 71 131/69 94 02/28/21 03:48 69 126/66 96 02/28/21 03:43 71 134/63 88 L 02/28/21 03:33 71 126/60 95 02/28/21 03:30 71 94 02/28/21 03:27 73 121/68 94 02/28/21 03:22 71 125/64 93 02/28/21 03:17 71 109/73 94 02/28/21 03:12 69 120/64 94 02/28/21 03:08 67 124/73 88 L 02/28/21 03:03 69 118/57 L 96 02/28/21 03:00 70 95 02/28/21 02:57 68 135/64 96 02/28/21 02:52 72 117/66 96 02/28/21 02:48 70 112/63 95 02/28/21 02:43 70 126/67 98 02/28/21 02:37 76 118/81 95 02/28/21 02:34 81 110/84 95 02/28/21 02:30 64 95 02/28/21 02:27 63 133/64 95 02/28/21 02:22 62 128/62 94 02/28/21 02:17 65 131/61 95 02/28/21 02:12 63 128/70 95 02/28/21 02:07 71 127/66 95 02/28/21 02:02 62 119/63 95 02/28/21 02:00 61 94 02/28/21 01:57 69 113/61 95 02/28/21 01:52 69 116/58 L 94 02/28/21 01:47 65 104/57 L 94 02/28/21 01:43 66 106/53 L 93 02/28/21 01:37 64 105/64 96 02/28/21 01:32 71 112/58 L 95 02/28/21 01:30 70 95 02/28/21 01:27 65 108/59 L 94 02/28/21 01:22 64 103/56 L 95 02/28/21 00:52 68 135/62 92 02/28/21 00:47 61 130/71 95 02/28/21 00:42 60 135/65 94 02/28/21 00:37 66 144/61 H 94 02/28/21 00:32 61 152/63 H 95 02/28/21 00:30 60 94 02/28/21 00:27 57 L 144/63 H 94 02/28/21 00:22 57 L 126/64 94 02/28/21 00:17 66 132/63 94 02/28/21 00:12 62 125/62 96 02/28/21 00:07 67 115/59 L 94 02/28/21 00:02 64 115/60 95 02/28/21 00:00 71 95 02/27/21 23:59 36.7 C 02/27/21 23:57 63 102/64 96 02/27/21 23:52 68 101/70 94 02/27/21 23:42 66 118/72 97 02/27/21 23:37 72 130/86 92 02/27/21 23:32 60 134/67 95 02/27/21 23:30 56 L 94 02/27/21 23:27 50 L 147/77 H 95 02/27/21 23:22 65 140/66 95 02/27/21 23:17 63 152/63 H 95 02/27/21 23:12 59 L 136/73 94 05/14/21 23:07 67 136/64 95 02/27/21 23:02 56 L 142/62 H 95 02/27/21 23:00 58 L 94 02/27/21 22:57 65 133/64 94 02/27/21 22:52 61 123/73 96 02/27/21 22:47 67 127/77 92 02/27/21 22:42 68 140/63 92 02/27/21 22:37 63 129/69 95 02/27/21 22:32 72 124/62 95 02/27/21 22:30 78 92 02/27/21 22:16 69 116/63 97 02/27/21 22:11 64 116/64 95 02/27/21 22:06 72 118/63 94 02/27/21 22:02 64 122/59 L 96 02/27/21 22:00 70 95 02/27/21 21:56 69 122/63 96 PG Care Time/CCT Total # of Minutes Spent Total Time Spent with Patient: Total time spent is greater than 50% in coordination of care (as documented) at patient's floor/unit and/or counseling patient: Coding Level of Care Code 56972 Subseq Hosp Care Lvl 2 Diagnoses Acute CVA (cerebrovascular accident) I63.9 Carotid stenosis I65.21 Laterality: right Memory impairment R41.3 Sacral fracture S32.10XA Compression fracture of L1 lumbar vertebra S32.010A Lumbar spinal stenosis M48.061 Neurogenic claudication status: without neurogenic claudication Hypertension I10 Hypertension type: essential hypertension Atrial flutter I48.92 Atrial flutter type: unspecified S/P AVR (aortic valve replacement) Z95.2 Hypothyroid E03.9 Hypothyroidism type: unspecified BPH (benign prostatic hyperplasia) N40.0 Lower urinary tract symptom presence: symptoms absent Diabetes E11.59 Diabetes mellitus complication detail: with other circulatory complications Diabetes mellitus complication status: with circulatory complication Diabetes mellitus prison insulin use: without prison use Diabetes mellitus type: type 2 DVT prophylaxis Z29.9 (1) BPH (benign prostatic hyperplasia) Lower urinary tract symptom presence: symptoms absent Qualified Code(s): N40.0 - Benign prostatic hyperplasia without lower urinary tract symptoms (2) Carotid stenosis Laterality: right Qualified Code(s): I65.21 - Occlusion and stenosis of right carotid artery (3) Lumbar spinal stenosis Neurogenic claudication status: without neurogenic claudication Qualified Code(s): M48.061 - Spinal stenosis, lumbar region without neurogenic claudication (4) Diabetes Diabetes mellitus complication detail: with other circulatory complications Diabetes mellitus complication status: with circulatory complication 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
[2021-02-28] MEDS: dilTIAZem ER 180 MG CAPCR PO SCH (09:54)
--- NOTE | 2021-02-28 10:33 | Critical Care Progress Note ---
Date of Service February 28, 2021 Assessment & Plan (1) S/P carotid endarterectomy: --Status post carotid endarterectomy Right-sided on 02/27/2021 Continue with neurochecks No focal neurological deficits. Continue with Plavix, statin, aspirin --Diabetes type 2 Continue with ICU hypoglycemic protocol --Hypothyroidism Continue with levothyroxine --History of hypertension Blood pressure medication on hold --History of A. fib Diltiazem on hold because the patient is bradycardic Not on any anticoagulation currently. --Prophylaxis VTE: IPC's GI: None Lines: Right radial Diet: Cardiorenal Plan: In/out: +2.1 L, urine output 1825 DC IV fluids. Turn off phenylephrine and see how the blood pressure is Resume DVT prophylaxis once cleared by surgery Patient is stable enough to be downgraded to medical floor Please note the above document was generated using voice recognition software. It may contain grammatical, syntax or spelling errors.Any formal questions or concerns about the content, text or information contained within the body of this dictation should be directly addressed to the provider for clarification. (2) S/P AVR (aortic valve replacement): (3) Diabetes: (4) Atrial flutter: (5) Hypothyroid: (6) Hypertension: Admission and Anticipated Discharge Date Admission Date: February 26, 2021 Subjective Patient seen and examined at bedside. No acute distress, no adverse events overnight. Patient denies any chest pain, no shortness of breath, no headache, no nausea, no vomiting Fair appetite. Denies any blurry vision, moving all the extremities appropriately. Patient was on phenylephrine 0.1 at the time of examination with map in the low 70s Review of Systems Review of Systems: All systems reviewed & are unremarkable except as noted in Subjective Physical Exam Physical Exam: Constitutional: No acute distress HEENT: EOMI, PERRLA, right neck incision appreciated Respiratory system: Good air entry bilaterally, no wheeze, rhonchi, mild crackles bilateral lower lobes CVS: S1-S2 positive, positive 4 out of 6 systolic murmur appreciated best at the apex Abdomen: Soft, nontender, nondistended, positive bowel sounds x4 Extremities: +2 pulses bilaterally radialis/ dorsalis pedis, no cyanosis, +2 pitting edema left lower extremity, +3 pitting edema right lower extremity Neuro: Awake alert oriented x3, moving all the extremities appropriately, cranial nerves II through XII grossly intact, 5 out of 5 strength bilateral upper and lower extremities Psych: Normal mood and affect G/U: No Cisse Skin: no rashes, warm and dry Lymphatic: no cervical or axillary lymphadenopathy Results & Data Results & Data ([facility]) Vital Signs (Past 12 Hours) Vital Signs Temp Pulse Resp BP Pulse Ox 02/28/21 09:41 64 118/63 02/28/21 09:30 67 02/28/21 09:26 65 104/47 L 02/28/21 09:15 77 110/54 L 02/28/21 09:14 74 02/28/21 08:57 71 97/49 L 94 02/28/21 08:41 81 95/53 L 78 L 02/28/21 08:30 72 94 02/28/21 08:28 65 92 02/28/21 08:26 65 90/49 L 90 02/28/21 08:25 68 97/51 L 95 02/28/21 08:24 67 90/51 L 94 02/28/21 08:18 36.6 C 02/28/21 08:11 76 100/52 L 94 02/28/21 08:00 76 81 L 02/28/21 07:57 83 20 118/66 92 02/28/21 07:41 70 150/82 H 94 02/28/21 07:27 60 125/66 95 02/28/21 07:11 67 126/82 95 02/28/21 07:00 65 91 02/28/21 06:53 71 124/70 94 02/28/21 06:48 67 116/66 94 02/28/21 06:43 63 115/62 93 02/28/21 06:38 65 129/61 95 02/28/21 06:33 70 112/76 93 02/28/21 06:30 64 95 02/28/21 06:28 72 112/67 94 02/28/21 06:23 63 127/62 95 02/28/21 06:18 74 134/75 92 02/28/21 06:13 67 139/85 94 02/28/21 06:10 68 129/80 95 02/28/21 06:04 66 100/70 97 02/28/21 06:00 71 96 02/28/21 05:54 78 141/106 H 86 L 02/28/21 05:48 72 136/72 94 02/28/21 05:43 69 134/65 94 02/28/21 05:38 72 149/75 H 94 02/28/21 05:34 67 129/66 92 02/28/21 05:30 83 94 02/28/21 05:29 68 125/56 L 93 02/28/21 05:23 69 143/77 H 92 02/28/21 05:18 69 131/80 93 02/28/21 05:13 71 132/81 93 02/28/21 05:08 80 129/74 90 02/28/21 05:03 67 133/66 94 02/28/21 05:00 68 93 02/28/21 04:58 70 126/67 93 02/28/21 04:53 70 133/69 95 02/28/21 04:48 75 123/97 94 02/28/21 04:43 73 127/63 94 02/28/21 04:38 66 128/66 95 02/28/21 04:34 69 117/73 02/28/21 04:28 71 118/54 L 89 L 02/28/21 04:23 69 115/72 92 02/28/21 04:18 71 120/65 95 02/28/21 04:14 68 136/64 95 02/28/21 04:13 72 136/64 94 02/28/21 04:09 80 124/68 95 02/28/21 04:03 86 141/64 H 95 02/28/21 04:00 72 94 02/28/21 03:58 86 137/102 H 85 L 02/28/21 03:53 71 131/69 94 02/28/21 03:48 69 126/66 96 02/28/21 03:43 71 134/63 88 L 02/28/21 03:33 71 126/60 95 02/28/21 03:30 71 94 02/28/21 03:27 73 121/68 94 02/28/21 03:22 71 125/64 93 02/28/21 03:17 71 109/73 94 02/28/21 03:12 69 120/64 94 02/28/21 03:08 67 124/73 88 L 02/28/21 03:03 69 118/57 L 96 02/28/21 03:00 70 95 02/28/21 02:57 68 135/64 96 02/28/21 02:52 72 117/66 96 02/28/21 02:48 70 112/63 95 02/28/21 02:43 70 126/67 98 02/28/21 02:37 76 118/81 95 02/28/21 02:34 81 110/84 95 02/28/21 02:30 64 95 02/28/21 02:27 63 133/64 95 02/28/21 02:22 62 128/62 94 02/28/21 02:17 65 131/61 95 02/28/21 02:12 63 128/70 95 02/28/21 02:07 71 127/66 95 02/28/21 02:02 62 119/63 95 02/28/21 02:00 61 94 02/28/21 01:57 69 113/61 95 02/28/21 01:52 69 116/58 L 94 02/28/21 01:47 65 104/57 L 94 02/28/21 01:43 66 106/53 L 93 02/28/21 01:37 64 105/64 96 02/28/21 01:32 71 112/58 L 95 02/28/21 01:30 70 95 02/28/21 01:27 65 108/59 L 94 02/28/21 01:22 64 103/56 L 95 02/28/21 00:52 68 135/62 92 02/28/21 00:47 61 130/71 95 02/28/21 00:42 60 135/65 94 02/28/21 00:37 66 144/61 H 94 02/28/21 00:32 61 152/63 H 95 02/28/21 00:30 60 94 02/28/21 00:27 57 L 144/63 H 94 02/28/21 00:22 57 L 126/64 94 02/28/21 00:17 66 132/63 94 02/28/21 00:12 62 125/62 96 02/28/21 00:07 67 115/59 L 94 02/28/21 00:02 64 115/60 95 02/28/21 00:00 71 95 02/27/21 23:59 36.7 C 02/27/21 23:57 63 102/64 96 02/27/21 23:52 68 101/70 94 02/27/21 23:42 66 118/72 97 02/27/21 23:37 72 130/86 92 02/27/21 23:32 60 134/67 95 02/27/21 23:30 56 L 94 02/27/21 23:27 50 L 147/77 H 95 02/27/21 23:22 65 140/66 95 02/27/21 23:17 63 152/63 H 95 02/27/21 23:12 59 L 136/73 94 02/27/21 23:07 67 136/64 95 02/27/21 23:02 56 L 142/62 H 95 02/27/21 23:00 58 L 94 02/27/21 22:57 65 133/64 94 02/27/21 22:52 61 123/73 96 02/27/21 22:47 67 127/77 92 02/27/21 22:42 68 140/63 92 02/27/21 22:37 63 129/69 95 02/27/21 22:32 72 124/62 95 02/27/21 22:30 78 92 02/28/21 04:22 02/28/21 04:22 Coding Level of Care Code 86386 Subseq Hosp Care Lvl 3 Diagnoses S/P carotid endarterectomy Z98.890 S/P AVR (aortic valve replacement) Z95.2 Diabetes E11.59 Diabetes mellitus type: type 2 Diabetes mellitus detention insulin use: without detention use Diabetes mellitus complication status: with circulatory complication Diabetes mellitus complication detail: with other circulatory complications Atrial flutter I48.92 Atrial flutter type: unspecified Hypothyroid E03.9 Hypothyroidism type: unspecified Hypertension I10 Hypertension type: essential hypertension (1) Diabetes Diabetes mellitus type: type 2 Diabetes mellitus continuous churn buttermaker insulin use: without continuous churn buttermaker use Diabetes mellitus complication status: with circulatory complication Diabetes mellitus complication detail: with other circulatory complications Qualified Code(s): E11.59 - Type 2 diabetes mellitus with other circulatory complications (2) Atrial flutter Atrial flutter type: unspecified Qualified Code(s): I48.92 - Unspecified atrial flutter (3) Hypothyroid Hypothyroidism type: unspecified Qualified Code(s): E03.9 - Hypothyroidism, unspecified (4) Hypertension Hypertension type: essential hypertension Qualified Code(s): I10 - Essential (primary) hypertension
[2021-02-28] MEDS: TAMSULOSIN HCL 0.4 MG CAP PO SCH (21:04)
[2021-03-01] MEDS: LEVOTHYROXINE SODIUM 100 MCG TABLET PO SCH (05:27)
[2021-03-01 06:24] LABS: Creatinine Clr Calc Pharmacy 62.5 ml/min; Est GFR (African American) 92.9 ml/min; Est GFR (Non-African American) 80.2 ml/min
[2021-03-01] MEDS: ENOXAPARIN INJ 40 MG/0.4 ML SYR SQ SCH (08:55)
[2021-03-01] MEDS: CLOPIDOGREL BISULFATE 75 MG TAB PO SCH (08:55)
[2021-03-01] MEDS: INSULIN GLARGINE SOLOSTAR 100 UNITS/ML 3 ML PEN SC SCH (08:55)
[2021-03-01] MEDS: dilTIAZem ER 180 MG CAPCR PO SCH (08:55)
[2021-03-01] MEDS: INSULIN ASPART 100 UNITS/ML 3 ML PEN SC SCH ×4 (08:56→21:18)
--- NOTE | 2021-03-01 09:45 | Hospitalist Progress Note ---
Date of Service March 01, 2021 Assessment & Plan (1) Acute CVA (cerebrovascular accident): New onset right upper extremity weakness on exam. LKW 02/24, during the night. CTA head/neck -severe stenosis 95 to 99% of proximal right ICA with string sign, 50 to 60% stenosis of proximal left ICA MRI brain w/o contrast - 1 cm acute infarct left posterior frontal lobe TTE - LVEF 55 to 60% with no regional wall motion abnormalities. Severe left atrial dilatation. Bioprosthetic aortic valve with acceptable transvalvular gradient. Continue clopidogrel and aspirin for 3 weeks and then clopidogrel alone Increase rosuvastatin from 10 to 20 mg to make high-dose. LDL 73. Start to aim sBP 140-160 No current atrial flutter to warrant anticoagulation. We will continue to monitor on telemetry. PT/OT - planning on rehabilitation, insurance auth pending Appreciate neurology consult - needs outpatient monitoring if no arrhythmia seen while here (2) Carotid stenosis: Appreciate vascular surgery consult. Doing well post-operatively. Post-op carotid endarterectomy 02/27. had some right neck swelling, sensation of difficulty swallowing on 03/01, no difficulty breathing CTA neck: 1. Status post recent right carotid endarterectomy. Operative bed gas, fluid and a small hematoma are not unexpected in the early postoperative setting above. No large hematoma. No pseudoaneurysm. Patent right internal carotid artery. The fluid/edema results in leftward displacement of the airway with mild airway effacement and narrowing. Close clinical monitoring is recommended. 2. Otherwise unchanged appearance within the major vessels of the neck since CT of February 25, 2021, as detailed above. 50-60% stenosis of the proximal left internal carotid artery. discussed with Dr. 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 MRI at that time showed chronic microvascular changes only. Follow-up outpatient neurology (4) Sacral fracture: Ruled out on MRI. (5) Compression fracture of L1 lumbar vertebra: Appreciate ortho-spine consult. Do not expect this is causing any symptoms at this time. (6) Lumbar spinal stenosis: As above (7) Hypertension: Discontinue furosemide. Aim BP 140-160 -l continue his diltiazem ER 180 mg p.o. every morning to avoid rebound tachycardia. (8) Atrial flutter: Noted to be "transient" on prior notes but no explanation of why he is not on anticoagulation. ?post operative from aortic stenosis per his 's recollection. Reportedly he was on Eliquis at some point although unclear why this was discontinued - suspect due to transient nature post operatively. Continue diltiazem 180mg PO daily to avoid rebound tachycardia (9) S/P AVR (aortic valve replacement): Noted. No prior details available on admission regarding this. (10) Hypothyroid: TSH elevated in setting of suspected acute CVA. Free T4 normal therefore continue his usual levothyroxine dose which was recently increased regardless. Continue levothyroxine 100 mcg p.o. daily (11) BPH (benign prostatic hyperplasia): Continue tamsulosin 0.4 mg p.o. daily (12) Diabetes: HbA1C 7.4 Hold metformin Appreciate pharmacy glycemic control in the setting of acute CVA. (13) DVT prophylaxis: Avoid SCDs but will wrap his usual lymphedematous legs. VTE prophylaxis deferred due to carotid endarterectomy, will start lovenox tomorrow. (14) Constipation: add Miralax daily and Colace BID Admission and Anticipated Discharge Date Admission Date: February 26, 2021 Subjective patient c/o swelling in his neck on right side and some difficulty swallowing he was able to eat his entire breakfast so it was not like he could not swallow, just has some pressure in that area no difficulty breathing, no fever, no nausea, no chest pain/pressure, no cough he has not had a BM in 4 days, will give some Miralax and Colace plan for [facility], might be able to take him tomorrow reviewed chart, had a 1cm right posterior frontal lobe stroke had left CEA for stenosis, seen by vascular surgeon yesterday, he felt he was stable for discharge from surgical standpoint reviewed neurology recommendations, planning on outpatient Holter monitor to look for atrial flutter he is not on anticoagulation at this time CTA neck: no large hematoma, no pseudoaneurysm, likely typical post op findings Review of Systems Review of Systems: All systems reviewed & are unremarkable except as noted in Subjective Physical Exam Constitutional: well developed, well nourished and + frail appearing; no acute distress Neck: trachea midline and + anterior neck swelling (right CEA incision, mild swelling at superior border); + abnormal visual inspection (right CEA incision, C/D/I) Respiratory: normal respiratory effort, lungs clear to auscultation Cardiovascular: RRR, no murmur, no edema Gastrointestinal (Abdomen): normal bowel sounds, soft, nontender, no hepatosplenomegaly Musculoskeletal: no cyanosis or clubbing, extremities motor strength 5/5 Skin: + turgor decreased (thin skin, numerous bruises) and + dry skin Neurologic: patellar DTR's 2+ bilat, sensation intact and PERRL, EOMI, accommodation nl, no face palsy, no dysarthria Psychiatric: A+Ox3, euthymic affect Lymphatic: no cervical or axillary lymphadenopathy Results & Data Results & Data ([facility]) Vital Signs (Past 12 Hours) Vital Signs Temp Pulse Pulse Resp BP BP Pulse Ox 03/01/21 08:02 37.1 C 85 18 163/84 H 91 03/01/21 07:22 76 03/01/21 04:30 162/68 H 03/01/21 03:31 36.9 C 90 20 165/72 H 90 03/01/21 00:35 88 02/28/21 22:43 36.9 C 83 18 109/61 90 Laboratory Results Laboratory Results - last 24 hr 02/28/21 02/28/21 02/28/21 11:49 17:08 20:14 Creatinine Est Cr Clr Drug Dosing Est GFR ( Amer) Est GFR (Non-Af Amer) POC Glucose 133 H 102 H 90 03/01/21 03/01/21 05:19 07:56 Creatinine 0.79 Est Cr Clr Drug Dosing 62.5 Est GFR ( Amer) 92.9 Est GFR (Non-Af Amer) 80.2 POC Glucose 90 Diagnostic Findings CTA neck IMPRESSION: 1. Status post recent right carotid endarterectomy. Operative bed gas, fluid and a small hematoma are not unexpected in the early postoperative setting above. No large hematoma. No pseudoaneurysm. Patent right internal carotid artery. The fluid/edema results in leftward displacement of the airway with mild airway effacement and narrowing. Close clinical monitoring is recommended. 2. Otherwise unchanged appearance within the major vessels of the neck since CT of February 25, 2021, as detailed above. 50-60% stenosis of the proximal left internal carotid artery. Medications Administered Current Inpatient Medications Aspirin (Aspirin 81 Mg Ectab) [facility] [place]: 03/28/21 08:59 Last Admin: 02/28/21 08:29 Dose: 81 mg Documented by: Clopidogrel Bisulfate (Clopidogrel Bisulfate 75 Mg Tab) 75 mg PO QAM [facility] Stop: 03/28/21 08:59 Last Admin: 03/01/21 08:55 Dose: 75 mg Documented by: Dextrose (Dextrose 50% 50 Ml Syringe) 25 - 50 ml IV UD PRN; Protocol PRN Reason: Hypoglycemia Protocol Stop: 03/27/21 18:43 Diltiazem HCl (Diltiazem Er 180 Mg Capcr) 180 mg PO QAM [facility] Stop: 03/28/21 08:59 Last Admin: 03/01/21 08:55 Dose: 180 mg Documented by: Docusate Sodium (Docusate Sodium 100 Mg Cap) 100 mg PO BID [facility] Stop: 03/31/21 09:44 Enoxaparin Sodium (Enoxaparin Inj 40 Mg/0.4 Ml Syr) 40 mg SQ [facility] [place] Stop: 03/31/21 08:59 Last Admin: 03/01/21 08:55 Dose: 40 mg Documented by: Glucagon (Glucagon For Inj 1 Mg Vial) 1 mg SQ UD PRN; Protocol PRN Reason: Hypoglycemia Protocol Stop: 03/27/21 18:43 Glucose (Glucose 10 Tabs/Tube) 4 - 8 tabs PO UD PRN; Protocol PRN Reason: Hypoglycemia Protocol Stop: 03/27/21 18:43 Glucose (Glucose 40% Gel 15 Gm Tube) 15 - 30 gm PO UD PRN; Protocol PRN Reason: Hypoglycemia Protocol Stop: 03/27/21 18:43 Insulin Aspart (Insulin Aspart 100 Units/Ml 3 Ml Pen) 0 units SC ACHS [facility] Stop: 03/28/21 16:29 Last Admin: 03/01/21 08:56 Dose: 5 units Documented by: Insulin Glargine (Insulin Glargine Solostar 100 Units/Ml 3 Ml Pen) 12 units SC DAILY [facility] Stop: 03/31/21 08:59 Last Admin: 03/01/21 08:55 Dose: 12 units Documented by: Levothyroxine Sodium (Levothyroxine Sodium 100 Mcg Tablet) 100 mcg PO DAILYBB [facility] Stop: 03/28/21 06:29 Last Admin: 03/01/21 05:27 Dose: 100 mcg Documented by: Miscellaneous (Carbohydrates For Hypoglycemia ) 15 - 30 gm PO UD PRN PRN Reason: Hypoglycemia Protocol Stop: 03/27/21 18:43 Miscellaneous Information (Pharmacy Glycemic Mgmt Consult) 1 ea N/A UD PRN PRN Reason: Consult Stop: 03/28/21 14:00 Oxycodone/Acetaminophen (Oxycodone/Acetaminophen 5mg/325mg Tab) 1 - 2 tab PO Q6H PRN PRN Reason: Moderate Pain Stop: 03/13/21 15:06 Polyethylene Glycol (Polyethylene (Miralax) 17 Gm Pack) 17 gm PO DAILY [facility] Stop: 03/31/21 09:44 Rosuvastatin Calcium (Rosuvastatin Calcium 20 Mg Tab) 20 mg PO QAM [facility] Stop: 03/29/21 08:59 Last Admin: 02/28/21 08:29 Dose: 20 mg Documented by: Tamsulosin HCl (Tamsulosin Hcl 0.4 Mg Cap) 0.4 mg PO QPM [facility] Stop: 03/27/21 20:59 Last Admin: 02/28/21 21:04 Dose: 0.4 mg Documented by: Vitamin D (Cholecalciferol 1,000 Units 25 Mcg Tab) 1,000 units PO QAM [facility] Stop: 03/28/21 08:59 Last Admin: 02/28/21 08:01 Dose: 1,000 units Documented by: PG Care Time/CCT Total # of Minutes Spent Total Time Spent with Patient: Total time spent is greater than 50% in coordination of care (as documented) at patient's floor/unit and/or counseling patient: Coding Level of Care Code 19107 Subseq Hosp Care Lvl 3 Diagnoses Acute CVA (cerebrovascular accident) I63.9 Carotid stenosis I65.21 Laterality: right Memory impairment R41.3 Sacral fracture S32.10XA Compression fracture of L1 lumbar vertebra S32.010A Lumbar spinal stenosis M48.061 Neurogenic claudication status: without neurogenic claudication Hypertension I10 Hypertension type: essential hypertension Atrial flutter I48.92 Atrial flutter type: unspecified S/P AVR (aortic valve replacement) Z95.2 Hypothyroid E03.9 Hypothyroidism type: unspecified BPH (benign prostatic hyperplasia) N40.0 Lower urinary tract symptom presence: symptoms absent Diabetes E11.59 Diabetes mellitus complication detail: with other circulatory complications Diabetes mellitus complication status: with circulatory complication Diabetes mellitus termite treater insulin use: without termite treater use Diabetes mellitus type: type 2 DVT prophylaxis Z29.9 Constipation K59.00 Constipation type: unspecified constipation type (1) BPH (benign prostatic hyperplasia) Lower urinary tract symptom presence: symptoms absent Qualified Code(s): N40.0 - Benign prostatic hyperplasia without lower urinary tract symptoms (2) Carotid stenosis Laterality: right Qualified Code(s): I65.21 - Occlusion and stenosis of right carotid artery (3) Lumbar spinal stenosis Neurogenic claudication status: without neurogenic claudication Qualified Code(s): M48.061 - Spinal stenosis, lumbar region without neurogenic claudication (4) Diabetes Diabetes mellitus complication detail: with other circulatory complications Diabetes mellitus complication status: with circulatory complication Diabetes mellitus longterm insulin use: without longterm use Diabetes mellitus type: type 2 Qualified Code(s): E11.59 - Type 2 diabetes mellitus with other circulatory complications (5) Atrial flutter Atrial flutter type: unspecified Qualified Code(s): I48.92 - Unspecified atrial flutter (6) Hypothyroid Hypothyroidism type: unspecified Qualified Code(s): E03.9 - Hypothyroidism, unspecified (7) Hypertension Hypertension type: essential hypertension Qualified Code(s): I10 - Essential (primary) hypertension (8) Constipation Constipation type: unspecified constipation type Qualified Code(s): K59.00 - Constipation, unspecified
[2021-03-01] MEDS ORDERED: OPTIRAY 350 500ml IV ONE (10:11)
[2021-03-01] MEDS: POLYETHYLENE (MIRALAX) 17 GM PACK PO SCH (10:32)
[2021-03-01] MEDS: CHOLECALCIFEROL 1,000 UNITS 25 MCG TAB PO SCH (10:32)
[2021-03-01] MEDS: ASPIRIN 81 MG ECTAB PO SCH (10:32)
[2021-03-01] MEDS: ROSUVASTATIN CALCIUM 20 MG TAB PO SCH (10:32)
[2021-03-01] MEDS: DOCUSATE SODIUM 100 MG CAP PO SCH ×2 (10:32→21:19)
--- NOTE | 2021-03-01 10:40 | CT Scan Report ---
CT ANGIOGRAPHY OF THE NECK WITH CONTRAST CLINICAL HISTORY: CEA on February 27, 2021, r/o expanding hematoma COMPARISON STUDY: CTA of the neck February 25, 2021. Technique: CT angiography of the carotid and vertebral arteries was obtained using [employer] and 3D rec onstruction on an independent workstation. NASCET criteria was utilized. Automated exposure control was utilized for the study. A dose lowering technique was utilized adhering to the principles of ALA RA. CT DOSE: 534.98 mGy.cm Findings: Visualized portions of the intracranial contents are unremarkable. There is biapical scarri ng within the lungs. There is no acute cervical spine fracture. There are multiple locules of gas wit hin the operative bed as well as stranding and fluid. Note is made of postoperative findings from rec ent right carotid endarterectomy. A fluid and gas containing operative bed fluid collection measures 2.5 x 1.8 x 1.4 cm. This collection is located anterior to the right external carotid artery. Hyperde nse material within this collection favors a small amount of hemorrhage. There is no pseudoaneurysm. There is no large hematoma. Resultant mass effect is noted with leftward displacement of the airway a nd mild airway narrowing. No active extravasation is identified. The cervical portion of the right in ternal carotid artery is patent. Moderate stenosis at the origin of the proximal left internal caroti d artery is unchanged. Moderate stenosis at the origin the bilateral vertebral arteries is unchanged. There is calcified plaque within the bilateral cavernous carotids. The right internal jugular vein i s not well opacified. There is mass effect upon this vessel. IMPRESSION: 1. Status post recent right carotid endarterectomy. Operative bed gas, fluid and a small hematoma are not unexpected in the early postoperative setting above. No large hematoma. No pseudoaneurysm. Paten t right internal carotid artery. The fluid/edema results in leftward displacement of the airway with mild airway effacement and narrowing. Close clinical monitoring is recommended. 2. Otherwise unchanged appearance within the major vessels of the neck since CT of February 25, 2021, as d etailed above. 50-60% stenosis of the proximal left internal carotid artery. ACT 112: Negative or not required by law. Electronically signed by: Mendel Shelby M.D. 03/01/2021 10:39 AM
--- NOTE | 2021-03-01 11:41 | Pharmacy Report ---
Pharmacy Glycemic Short Note 2 - Date of Service March 01, 2021 - Glycemic Short BSG Results (Last 24 hours): 02/28/21 02/28/21 02/28/21 11:49 17:08 20:14 POC Glucose 133 H 102 H 90 03/01/21 07:56 POC Glucose 90 OUTPATIENT ANTIDIABETIC REGIMEN: * metformin 850 mg tid * A1c 7.4% - 02/26 ASSESSMENT: 03/01 * Pt has received 43 units of insulin over the past 24hrs * 15 units of basal with Lantus * 28 units of bolus with NovoLog * BSGs [phone] mg/dl * AM fasting BSG slightly below goal range for inpatient targets & pt age/co- morbidities at 90mg/dl. Will decrease basal insulin * No changes needed to CF/CR 02/28 * Pt has received 33 units of insulin over the past 24hrs * 15 units of basal with NPH * 18 units of bolus with NovoLog * BSGs [phone] mg/dl * BSGs elevated yesterday secondary to DXM given intraoperatively. Pt ordered low dose NPH to cover DXM since patient NPO. * Diet advanced back to DMT2- will initiate low dose weight based SQ basal bolus insulin orders while outpatient DM meds on hold. Titrate based on BSG trends. * Goal is to maintain BSGs <180 mg/dl (ideally <150) to prevent post-op infectious complications 02/26 * 86 year old admitted with stroke like symptoms, stroke workup. Type 2 diabetic managed only on metformin at home * Started on SSI last evening, correctional only. Fasting BSG 135 mg/dL - continue to hold basal * Lunch BSG trending up, likely related to eating at breakfast, plan to tighten and add in CR PLAN FOR INPATIENT GLYCEMIC CONTROL: * Hold outpatient oral diabetes medications * Basal insulin * decrease: Lantus 12 units (~0.14 units/kg) Sq daily * Bolus insulin * NovoLog per scale ACHS or Q6hrs while NPO * Goal Range: Low 110 mg/dL - High 140 mg/dL * Correction Factor: 20 mg/dL/unit * Nutritional / Prandial insulin per carb ratio of 1 unit per 7 grams CHO consumed PLAN FOR DISCHARGE: * A1c is in goal range for patient based on age/co-morbidities. No changes needed to outpatient regimen
[2021-03-01] MEDS: TAMSULOSIN HCL 0.4 MG CAP PO SCH (21:19)
[2021-03-02] MEDS ORDERED: METOPROLOL TARTRATE 1 MG/ML VIAL IV STA ×2 (00:09→01:33)
[2021-03-02] MEDS ORDERED: METOPROLOL TARTRATE 1 MG/ML VIAL IV ONE (00:17)
[2021-03-02] MEDS ORDERED: ALBUT/IPRATROP 3MG/0.5MG NEB 3 ML VIAL NEB STA (00:26)
[2021-03-02] MEDS ORDERED: ALBUT/IPRATROP 3MG/0.5MG NEB 3 ML VIAL ONE (00:53)
[2021-03-02] MEDS ORDERED: FUROSEMIDE 40 MG in SYRINGE 0 ML IV ONE ×2 (01:15→15:00)
[2021-03-02] MEDS ORDERED: METOPROLOL TARTRATE 25 MG TAB PO STA (01:33)
[2021-03-02] MEDS ORDERED: MoRPHine SULFATE 2 MG/ML CARP IV STA (02:42)
[2021-03-02 05:06] LABS: iSTAT Arterial Blood Gas HCO3 29 meg/L (19-24); iSTAT Arterial Blood Gas pCO2 46 mmHg (35-46); iSTAT Arterial Blood Gas pH 7.41 (7.35-7.45); iSTAT Arterial Blood Gas pO2 60 mmHg (80-95); iSTAT Carbon Dioxide 31 mmol/L (24-31)
[2021-03-02 05:08] LABS: Basophils # (auto) 0.01 K/uL (0-0.2); Basophils % (auto) 0.1 %; Eosinophils # (auto) 0.05 K/uL (0-0.5); Eosinophils % (auto) 0.6 %; Hematocrit (blood only) 35.7 % (42-52); Hemoglobin 12.6 g/dL (14.0-18.0); Immature Granulocytes # (auto) 0.02 K/uL (0.00-0.02); Immature Granulocytes % (auto) 0.2 %; Lymphocytes # (auto) 0.44 K/uL (1.2-3.4); Mean Corpuscular Hemoglobin 33.8 pg (25-34); Mean Corpuscular Volume 95.7 fL (80-100); Mean Platelet Volume 9.4 fL (7.4-10.4); Monocytes % (auto) 11.3 %; Neutrophils # (auto) 7.36 K/uL (1.4-6.5); Neutrophils % (auto) 82.8 %; Platelet Count 107 K/uL (130-400); RDW Coefficient of Variation 13.7 % (11.5-14.5); RDW Standard Deviation 47.3 fL (36.4-46.3); Red Blood Count 3.73 M/uL (4.7-6.1); White Blood Count 8.88 K/uL (4.8-10.8)
[2021-03-02 05:12] LABS: Mean Corpuscular Hgb Conc 35.3 g/dL (32-36)
--- NOTE | 2021-03-02 07:32 | XRay Report ---
SINGLE VIEW CHEST CLINICAL HISTORY: Hypoxia. FINDINGS: An AP, portable, upright chest radiograph is compared to study dated 02/25/2021 and correlat ed with chest CT dated 11/10/2016. The examination is degraded by portable technique and patient rotat ion. The patient's head obscures the apices. The heart is enlarged noting atherosclerotic calcificati on and uncoiling of the thoracic aorta. The pulmonary vasculature is noncongested. Chronic interstiti al thickening is similar to previous. There is mild elevation of the right hemidiaphragm with bibasil ar scarring/atelectasis. Surgical clips project over the right chest. Suspect trace pleural effusions . No airspace consolidation is identified typical for pneumonia. No pneumothorax is seen. The skeleta l structures are osteopenic. There are healed left-sided rib fractures. Degenerative change is seen t hroughout the imaged spine. IMPRESSION: 1. Mild cardiomegaly without radiographic evidence of congestive failure. 2. Suspect trace pleural effusions. ACT 112: Negative or not required by law. Electronically signed by: Steven Foss M.D. 03/02/2021 7:30 AM
--- NOTE | 2021-03-02 08:41 | Surgery Progress Note ---
Date of Service March 02, 2021 Assessment & Plan (1) S/P carotid endarterectomy: Being that there is no tracheal compression on the CT from Tuesday and there is no tracheal deviation and the hematoma is not large enough to warrant any intervention at this point in time. Admission and Anticipated Discharge Date Admission Date: February 26, 2021 Subjective Patient is awake alert. He is able to talk without shortness of breath. Physical Exam Physical Exam: On exam incision is dry and clean. There is a hematoma present right-sided neck which is not significantly changed from Tuesday morning. The trachea is midline without any deviation. CAT scan did not show any large hematoma or tracheal deviation. Results & Data ([facility]) Vital Signs (Past 12 Hours) Vital Signs Temp Pulse Pulse Resp BP BP BP 03/02/21 07:39 36.8 C 74 22 166/91 H 03/02/21 07:07 85 03/02/21 07:05 36.8 C 89 24 174/81 H 03/02/21 06:43 192/91 H 03/02/21 05:25 71 20 132/71 03/02/21 04:44 36.5 C 76 23 180/88 H 03/02/21 03:26 36.4 C L 67 18 170/80 H 03/02/21 02:25 85 179/79 H 03/02/21 01:02 86 20 03/02/21 00:25 96 H 187/80 H 03/02/21 00:03 03/02/21 00:02 37.2 C 101 H 22 177/85 H Pulse Ox 03/02/21 07:39 99 03/02/21 07:07 03/02/21 07:05 92 03/02/21 06:43 03/02/21 05:25 99 03/02/21 04:44 92 03/02/21 03:26 88 L 03/02/21 02:25 03/02/21 01:02 90 03/02/21 00:25 03/02/21 00:03 93 03/02/21 00:02 78 L
[2021-03-02] MEDS: INSULIN ASPART 100 UNITS/ML 3 ML PEN SC SCH ×4 (09:24→23:54)
[2021-03-02] MEDS: ENOXAPARIN INJ 40 MG/0.4 ML SYR SQ SCH (09:25)
[2021-03-02] MEDS: INSULIN GLARGINE SOLOSTAR 100 UNITS/ML 3 ML PEN SC SCH (09:26)
--- NOTE | 2021-03-02 09:41 | Hospitalist Progress Note ---
Date of Service March 02, 2021 Assessment & Plan (1) Acute CVA (cerebrovascular accident): New onset right upper extremity weakness on exam. LKW 02/24, during the night. CTA head/neck -severe stenosis 95 to 99% of proximal right ICA with string sign, 50 to 60% stenosis of proximal left ICA MRI brain w/o contrast - 1 cm acute infarct left posterior frontal lobe TTE - LVEF 55 to 60% with no regional wall motion abnormalities. Severe left atrial dilatation. Bioprosthetic aortic valve with acceptable transvalvular gradient. Continue clopidogrel and aspirin for 3 weeks and then clopidogrel alone Increase rosuvastatin from 10 to 20 mg to make high-dose. LDL 73. Start to aim sBP 140-160 No current atrial flutter to warrant anticoagulation. We will continue to monitor on telemetry. PT/OT - planning on rehabilitation, insurance auth pending Appreciate neurology consult - needs outpatient monitoring if no arrhythmia seen while here Ordered a [place] cath, Holding plavix and asa due to aspiration and elevated requirement of oxygen. Ordered cardio consult: a flutter, aortic valve. anticoag input. Updated family. (2) Carotid stenosis: Appreciate vascular surgery consult. Doing well post-operatively. Post-op carotid endarterectomy 02/27. had some right neck swelling, sensation of difficulty swallowing on 03/01, no difficulty breathing CTA neck: 1. Status post recent right carotid endarterectomy. Operative bed gas, fluid and a small hematoma are not unexpected in the early postoperative setting above. No large hematoma. No pseudoaneurysm. Patent right internal carotid artery. The fluid/edema results in leftward displacement of the airway with mild airway effacement and narrowing. Close clinical monitoring is recommended. 2. Otherwise unchanged appearance within the major vessels of the neck since CT of February 25, 2021, as detailed above. 50-60% stenosis of the proximal left internal carotid artery. discussed with Dr. 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 MRI at that time showed chronic microvascular changes only. Follow-up outpatient neurology (4) Sacral fracture: Ruled out on MRI. (5) Compression fracture of L1 lumbar vertebra: Appreciate ortho-spine consult. Do not expect this is causing any symptoms at this time. (6) Lumbar spinal stenosis: As above (7) Hypertension: Discontinue furosemide. Aim BP 140-160 -l continue his diltiazem ER 180 mg p.o. every morning to avoid rebound tachycardia. (8) Atrial flutter: Noted to be "transient" on prior notes but no explanation of why he is not on anticoagulation. ?post operative from aortic stenosis per his 's recollection. Reportedly he was on Eliquis at some point although unclear why this was discontinued - suspect due to transient nature post operatively. Continue diltiazem 180mg PO daily to avoid rebound tachycardia (9) S/P AVR (aortic valve replacement): Noted. No prior details available on admission regarding this. (10) Hypothyroid: TSH elevated in setting of suspected acute CVA. Free T4 normal therefore continue his usual levothyroxine dose which was recently increased regardless. Continue levothyroxine 100 mcg p.o. daily (11) BPH (benign prostatic hyperplasia): Continue tamsulosin 0.4 mg p.o. daily (12) Diabetes: HbA1C 7.4 Hold metformin Appreciate pharmacy glycemic control in the setting of acute CVA. (13) DVT prophylaxis: Avoid SCDs but will wrap his usual lymphedematous legs. VTE prophylaxis deferred due to carotid endarterectomy, will start lovenox tomorrow. (14) Constipation: add Miralax daily and Colace BID Admission and Anticipated Discharge Date Admission Date: February 26, 2021 Subjective Patient had a rough night. Patient became hypoxic and required an oxymask. This morning patient was more restless and was coughing with thin liquids. Nurse called me and informed me that he was not tolerating liquids. Will reconsult Speech. Once in room, patient was conversant. Patient unable to state why he is in hospital. He mentions his aortic valve but does not recall stroke or endarectomy. He is oriented though to person, place and time (off by a few days) Review of Systems Review of Systems: All systems reviewed & are unremarkable except as noted in HPI & below Physical Exam Physical Exam: Constitutional: well developed, well nourished and + frail appearing; no acute distress Neck: trachea midline and + anterior neck swelling (right CEA incision, mild swelling at superior border); + abnormal visual inspection (right CEA incision, C/D/I) Respiratory: normal respiratory effort, lungs clear to auscultation Cardiovascular: RRR, no murmur, no edema Gastrointestinal (Abdomen): normal bowel sounds, soft, nontender, no hepatosplenomegaly Musculoskeletal: no cyanosis or clubbing, extremities motor strength 5/5 Skin: + turgor decreased (thin skin, numerous bruises) and + dry skin Neurologic: patellar DTR's 2+ bilat, sensation intact and PERRL, EOMI, accommodation nl, no face palsy, no dysarthria Psychiatric: A+Ox3 (off by a few days), euthymic affect Lymphatic: no cervical or axillary lymphadenopathy Results & Data Results & Data ([facility]) Vital Signs (Past 12 Hours) Vital Signs Temp Pulse Pulse Resp BP BP BP 03/02/21 09:00 36.8 C 72 20 166/86 H 03/02/21 08:54 36.8 C 64 20 181/79 H 03/02/21 07:39 36.8 C 74 22 166/91 H 03/02/21 07:07 85 03/02/21 07:05 36.8 C 89 24 174/81 H 03/02/21 06:43 192/91 H 03/02/21 05:25 71 20 132/71 03/02/21 04:44 36.5 C 76 23 180/88 H 03/02/21 03:26 36.4 C L 67 18 170/80 H 03/02/21 02:25 85 179/79 H 03/02/21 01:02 86 20 03/02/21 00:25 96 H 187/80 H 03/02/21 00:03 03/02/21 00:02 37.2 C 101 H 22 177/85 H Pulse Ox 03/02/21 09:00 100 03/02/21 08:54 100 03/02/21 07:39 99 03/02/21 07:07 03/02/21 07:05 92 03/02/21 06:43 03/02/21 05:25 99 03/02/21 04:44 92 03/02/21 03:26 88 L 03/02/21 02:25 03/02/21 01:02 90 03/02/21 00:25 03/02/21 00:03 93 03/02/21 00:02 78 L PG Care Time/CCT Total # of Minutes Spent Total Time Spent with Patient: Total time spent is greater than 50% in coordination of care (as documented) at patient's floor/unit and/or counseling patient: Coding Level of Care Code 61583 Subseq Hosp Care Lvl 3 Diagnoses Acute CVA (cerebrovascular accident) I63.9 Carotid stenosis I65.21 Laterality: right Memory impairment R41.3 Sacral fracture S32.10XA Compression fracture of L1 lumbar vertebra S32.010A Lumbar spinal stenosis M48.061 Neurogenic claudication status: without neurogenic claudication Hypertension I10 Hypertension type: essential hypertension Atrial flutter I48.92 Atrial flutter type: unspecified S/P AVR (aortic valve replacement) Z95.2 Hypothyroid E03.9 Hypothyroidism type: unspecified BPH (benign prostatic hyperplasia) N40.0 Lower urinary tract symptom presence: symptoms absent Diabetes E11.59 Diabetes mellitus complication detail: with other circulatory complications Diabetes mellitus complication status: with circulatory complication Diabetes mellitus alf insulin use: without predatory animal exterminator use Diabetes mellitus type: type 2 DVT prophylaxis Z29.9 Constipation K59.00 Constipation type: unspecified constipation type Time Spent (min) 35 (1) BPH (benign prostatic hyperplasia) Lower urinary tract symptom presence: symptoms absent Qualified Code(s): N40.0 - Benign prostatic hyperplasia without lower urinary tract symptoms (2) Carotid stenosis Laterality: right Qualified Code(s): I65.21 - Occlusion and stenosis of right carotid artery (3) Lumbar spinal stenosis Neurogenic claudication status: without neurogenic claudication Qualified Code(s): M48.061 - Spinal stenosis, lumbar region without neurogenic claudication (4) Diabetes Diabetes mellitus complication detail: with other circulatory complications Diabetes mellitus complication status: with circulatory complication Diabetes mellitus alf insulin use: without alf use Diabetes mellitus type: type 2 Qualified Code(s): E11.59 - Type 2 diabetes mellitus with other circulatory complications (5) Atrial flutter Atrial flutter type: unspecified Qualified Code(s): I48.92 - Unspecified atrial flutter (6) Hypothyroid Hypothyroidism type: unspecified Qualified Code(s): E03.9 - Hypothyroidism, unspecified (7) Hypertension Hypertension type: essential hypertension Qualified Code(s): I10 - Essential (primary) hypertension (8) Constipation Constipation type: unspecified constipation type Qualified Code(s): K59.00 - Constipation, unspecified
[2021-03-02 10:14] LABS: BUN Creatinine Ratio 24.8 (10-20); Creatinine Clr Calc Pharmacy 59.5 ml/min; Est GFR (African American) 91.1 ml/min; Est GFR (Non-African American) 78.6 ml/min; Magnesium 2.2 mg/dl (1.8-2.4); Potassium 4.3 mmol/L (3.5-5.1)
[2021-03-02 10:19] LABS: Phosphorus 3.9 mg/dl (2.5-4.9)
[2021-03-02] MEDS: LEVOTHYROXINE SODIUM 100 MCG TABLET PO SCH (11:42)
[2021-03-02] MEDS: DOCUSATE SODIUM 100 MG CAP PO SCH ×2 (11:43→20:43)
[2021-03-02] MEDS: CHOLECALCIFEROL 1,000 UNITS 25 MCG TAB PO SCH (11:43)
[2021-03-02] MEDS: dilTIAZem ER 180 MG CAPCR PO SCH (11:43)
[2021-03-02] MEDS: ASPIRIN 81 MG ECTAB PO SCH (11:43)
[2021-03-02] MEDS: ROSUVASTATIN CALCIUM 20 MG TAB PO SCH (11:43)
[2021-03-02] MEDS: CLOPIDOGREL BISULFATE 75 MG TAB PO SCH (11:43)
[2021-03-02] MEDS: POLYETHYLENE (MIRALAX) 17 GM PACK PO SCH (11:43)
[2021-03-02] MEDS: TAMSULOSIN HCL 0.4 MG CAP PO SCH (20:43)
[2021-03-03] MEDS: INSULIN ASPART 100 UNITS/ML 3 ML PEN SC SCH ×3 (06:28→17:35)
[2021-03-03] MEDS: LEVOTHYROXINE SODIUM 100 MCG TABLET PO SCH (06:29)
[2021-03-03 07:44] LABS: Basophils # (auto) 0.01 K/uL (0-0.2); Basophils % (auto) 0.1 %; Eosinophils # (auto) 0.11 K/uL (0-0.5); Eosinophils % (auto) 1.3 %; Hemoglobin 11.9 g/dL (14.0-18.0); Immature Granulocytes # (auto) 0.02 K/uL (0.00-0.02); Immature Granulocytes % (auto) 0.2 %; Lymphocytes # (auto) 0.68 K/uL (1.2-3.4); Lymphocytes % (auto) 7.8 %; Mean Corpuscular Hemoglobin 33.1 pg (25-34); Mean Corpuscular Volume 97.5 fL (80-100); Mean Platelet Volume 9.6 fL (7.4-10.4); Monocytes # (auto) 1.38 K/uL (0.11-0.59); Monocytes % (auto) 15.8 %; Neutrophils # (auto) 6.53 K/uL (1.4-6.5); Neutrophils % (auto) 74.8 %; Platelet Count 149 K/uL (130-400); RDW Coefficient of Variation 13.6 % (11.5-14.5); RDW Standard Deviation 48.8 fL (36.4-46.3); Red Blood Count 3.59 M/uL (4.7-6.1); White Blood Count 8.73 K/uL (4.8-10.8)
[2021-03-03 08:09] LABS: BUN Creatinine Ratio 34.5 (10-20); Calcium 8.5 mg/dl (8.5-10.1); Creatinine Clr Calc Pharmacy 69.6 ml/min; Est GFR (African American) 97.1 ml/min; Est GFR (Non-African American) 83.8 ml/min
--- NOTE | 2021-03-03 08:35 | Cardiology Consultation ---
Date of Consultation March 03, 2021 Assessment & Plan (1) Diastolic heart failure: 1. Diastolic heart failure 2. CVA 3. Status post bioprosthetic aortic valve replacement with a minimally invasive approach (25 mm Handcock II porcine valve), 10/2016. 4. Coronary artery disease 5. Postoperative atrial flutter and atrial fibrillation with no documented recurrence on an event recorder, May,. 6. Chronic lower extremity edema worse on the right than compared to the left; undergoing lymphedema therapy. 7. Carotid ultrasound June 2020 with a 70-79% right internal carotid artery stenosis and a 50-59% left internal carotid artery stenosis. Now post endarterectomy for right sided string sign and CVA 8. Hyperlipidemia. Mr. Morrell is much improved following diuresis yesterday. Heart failure exacerbation was likely in part due to fluid administration the previous 2 days. He does appears a bit dry in his mucous membranes and he is negative 2500 mls so further diuresis is not necessary. He is only requiring 2L NC at this point. He can resume his home dosing of furosemide when he is taking po again. His echo on 02/26 showed EF 55-60%, no RWMA, severe left atrial dilation, and moderate concentric ventricular hypertrophy. No events on monitor overnight. He is in a SR with frequent PACs. He should continue with diltiazem. He is appropriately on rosuvastatin which has been doubled to 20 mg. His LDL was just above goal at 73. He is on ASA with clopidogrel added for secondary prevention. History of Present Illness Attending Physician: Jeffery Stubbs History of Present Illness Mr. Morrell was admitted for an acute 1 cm infarct within the posterior left frontal lobe resulting in a very mild right hemiparesis without obvious associated aphasia. He was found to have severe stenosis of the proximal right internal carotid artery with an associated string sign and subsequently underwent an endarterectomy. On 03/02 he became hypoxic over the night requiring a non rebreather. Chest Xray showed evidence of congestive failure with trace effusion. He is also apparently aspirating with oral intake. He was given IV furosemide 40 mg x 2. Mr. Morrell is doing much better today than yesterday. He is pleasant and talkative, now on 2L NC and saturating 96%. He denies any chest pain or pressure, sob, palpitations or lightheadedness. Allergies Allergy/AdvReac Type Severity Reaction Status Date / Time metoprolol AdvReac Mild GI SYMPTOMS Verified 10/27/20 10:04 Home Medications Medication Instructions Recorded Confirmed Type amoxicillin 500 mg PO UD 05/30/19 02/25/21 History aspirin 81 mg PO BID 05/30/19 02/25/21 History cholecalciferol (vitamin D3) 1,000 unit PO QAM 05/30/19 02/25/21 History [Vitamin D3] diltiazem HCl 180 mg PO QAM 05/30/19 02/25/21 History furosemide 20 mg PO QAM 05/30/19 02/25/21 History ibuprofen [Advil] 200 mg PO QID PRN 05/30/19 02/25/21 History metformin 850 mg PO TID 05/30/19 02/25/21 History naproxen sodium [Aleve] 440 mg PO QAM PRN 05/30/19 02/25/21 History rosuvastatin 10 mg PO QAM 05/30/19 02/25/21 History tamsulosin 0.4 mg PO QPM 05/30/19 02/25/21 History levothyroxine 100 mcg tablet 100 mcg PO DAILY 02/16/21 02/25/21 History Patient History Medical History Anemia Atrial flutter BPH (benign prostatic hyperplasia) Carotid stenosis Cellulitis Chronic kidney disease Diabetes History of aortic stenosis s/p avr Hyperlipidemia Hypertension Hypothyroid Squamous cell carcinoma Multiple Surgical History S/P AVR (aortic valve replacement) Family History Uncle Parkinson disease Brother Parkinson disease Other Family history non-contributory Social History Smoking Status: Never smoker Second Hand Exposure: No; Do You Dip or Chew Tobacco: No; Tobacco Cessation Education Requested by Patient: No Hx Alcohol Use: No Hx Substance Use: No Preferred Language: Polish Communication Ability: Impaired Communication Ability Comment: patient very hard of hearing. Java Web Application Developer Required: No Beliefs That Will Affect Care: None Current Living Situation: Spouse Current Living Situation Comment: home alone with spouse. Other Information That Helps Us Care for You: No Feels Safe at Home: Yes Safety Concerns: Feels Safe At This Time Assistive Devices: Oxygen - Continuous Assistive Devices Comment: doesn't always use cane; hearing aids at home with . Review of Systems Review of Systems: All systems reviewed & are unremarkable except as noted in HPI & below Physical Exam Constitutional: WD/WN, vitals as above Respiratory: normal respiratory effort, lungs clear to auscultation Cardiovascular: Rate/Rhythm: regular rate and regular rhythm Heart Sounds: + murmur (systolic murmur 3/6 RUSB) Extremities: + edema (bilateral lower extremity) Skin: dry mucous membranes, ecchymosis and edema around incision site which is well approximated and without drainage Neurologic: moves all extremities and awake Psychiatric: A+Ox3, euthymic affect Results & Data ([facility] [place]) Vital Signs (Past 12 Hours) Vital Signs Temp Pulse Resp BP BP Pulse Ox Pulse Ox 03/03/21 06:45 36.8 C 86 20 151/79 H 96 03/03/21 03:53 36.8 C 88 20 162/81 H 96 03/02/21 23:21 36.6 C 80 20 154/81 H 96 03/02/21 21:00 96
--- NOTE | 2021-03-03 08:54 | Pharmacy Report ---
Pharmacy Glycemic Short Note 2 - Date of Service March 03, 2021 - Glycemic Short BSG Results (Last 24 hours): 03/02/21 03/02/21 03/02/21 09:17 11:20 16:50 Glucose 147 H POC Glucose 166 H 139 H 03/02/21 03/02/21 03/03/21 20:16 23:50 05:48 Glucose POC Glucose 152 H 156 H 139 H 03/03/21 07:19 Glucose 149 H POC Glucose OUTPATIENT ANTIDIABETIC REGIMEN: * metformin 850 mg tid * A1c 7.4% - 02/26 ASSESSMENT: 03/03 * BSGs reasonably well controlled yesterday, 144, 166, 139, and 156 mg/dL * Received 10 units of insulin (6 units of Lantus and 4 units of correctional Novolog) * Patient was made NPO yesterday due to aspiration concern * Fasting BSG of 139 mg/dL this morning * Will slightly increase Lantus today 03/01 * Pt has received 43 units of insulin over the past 24hrs * 15 units of basal with Lantus * 28 units of bolus with NovoLog * BSGs [phone] mg/dl * AM fasting BSG slightly below goal range for inpatient targets & pt age/co- morbidities at 90mg/dl. Will decrease basal insulin * No changes needed to CF/CR 02/28 * Pt has received 33 units of insulin over the past 24hrs * 15 units of basal with NPH * 18 units of bolus with NovoLog * BSGs [phone] mg/dl * BSGs elevated yesterday secondary to DXM given intraoperatively. Pt ordered low dose NPH to cover DXM since patient NPO. * Diet advanced back to DMT2- will initiate low dose weight based SQ basal bolus insulin orders while outpatient DM meds on hold. Titrate based on BSG trends. * Goal is to maintain BSGs <180 mg/dl (ideally <150) to prevent post-op infectious complications 02/26 * 86 year old admitted with stroke like symptoms, stroke workup. Type 2 diabetic managed only on metformin at home * Started on SSI last evening, correctional only. Fasting BSG 135 mg/dL - continue to hold basal * Lunch BSG trending up, likely related to eating at breakfast, plan to tighten and add in CR PLAN FOR INPATIENT GLYCEMIC CONTROL: * Hold outpatient oral diabetes medications * Basal insulin * decrease: Lantus 8 units SC daily * Bolus insulin * NovoLog per scale ACHS or Q6hrs while NPO * Goal Range: Low 110 mg/dL - High 140 mg/dL * Correction Factor: 20 mg/dL/unit * Nutritional / Prandial insulin per carb ratio of 1 unit per 8 grams CHO consumed PLAN FOR DISCHARGE: * A1c is in goal range for patient based on age/co-morbidities. No changes needed to outpatient regimen
[2021-03-03] MEDS ORDERED: INSULIN GLARGINE SOLOSTAR 100 UNITS/ML 3 ML PEN SC SCH (09:00)
[2021-03-03] MEDS: ASPIRIN 81 MG ECTAB PO SCH (09:48)
[2021-03-03] MEDS: CLOPIDOGREL BISULFATE 75 MG TAB PO SCH (09:49)
[2021-03-03] MEDS: dilTIAZem ER 180 MG CAPCR PO SCH (09:49)
[2021-03-03] MEDS: DOCUSATE SODIUM 100 MG CAP PO SCH (09:49)
[2021-03-03] MEDS: CHOLECALCIFEROL 1,000 UNITS 25 MCG TAB PO SCH (09:49)
[2021-03-03] MEDS: ENOXAPARIN INJ 40 MG/0.4 ML SYR SQ SCH (09:49)
[2021-03-03] MEDS: ROSUVASTATIN CALCIUM 20 MG TAB PO SCH (09:54)
[2021-03-03] MEDS: POLYETHYLENE (MIRALAX) 17 GM PACK PO SCH (09:54)
[2021-03-03] MEDS ORDERED: Nursing to Pharmacy Communication SCH (11:45)
== END 2021-03-03 17:15 | DRG 37 ==
LOC: 2N 10:22 → ED 10:22 → 2N 17:40 → SUATTDRO 02-26 09:15 → 1E 02-27 14:52 → 2N 02-28 08:19

== ENCOUNTER 2021-04-20 20:45 | Inpatient (IN) ==
[2021-04-20 22:52] LABS: Eosinophils # (auto) 0.06 K/uL (0-0.5); Hematocrit (blood only) 33.2 % (42-52); Hemoglobin 11.5 g/dL (14.0-18.0); Immature Granulocytes # (auto) 0.04 K/uL (0.00-0.02); Immature Granulocytes % (auto) 0.6 %; Lymphocytes # (auto) 0.62 K/uL (1.2-3.4); Mean Corpuscular Hemoglobin 33.5 pg (25-34); Mean Corpuscular Hgb Conc 34.6 g/dL (32-36); Mean Corpuscular Volume 96.8 fL (80-100); Monocytes # (auto) 0.58 K/uL (0.11-0.59); Monocytes % (auto) 9.4 %; Platelet Count 159 K/uL (130-400); RDW Coefficient of Variation 14.7 % (11.5-14.5); RDW Standard Deviation 51.9 fL (36.4-46.3); Red Blood Count 3.43 M/uL (4.7-6.1)
[2021-04-20 23:29] LABS: Albumin Level 2.6 gm/dl (3.4-5.0); BUN Creatinine Ratio 18.5 (10-20); Calcium 8.2 mg/dl (8.5-10.1); Creatinine Clr Calc Pharmacy 76.5 ml/min; Est GFR (African American) 93.9 ml/min; Magnesium 1.7 mg/dl (1.8-2.4); Potassium 3.5 mmol/L (3.5-5.1)
[2021-04-20 23:33] LABS: Albumin Globulin Ratio 0.9 (0.9-2); Bilirubin,Total 0.9 mg/dl (0.2-1); Total Protein 5.6 gm/dl (6.4-8.2); Troponin I 0.035 ng/ml (0-0.045)
[2021-04-21 01:15] LABS: Appearance Urine Clear (Clear); Bacteria Urine Automated 1+ (Negative); Bilirubin Urine Negative (Negative); Blood Urine Negative (Negative); Color Urine Dark Yellow; Glucose Urine UA 1+ (Negative); Ketones Urine Trace (Negative); Leukocyte Esterase Urine Negative (Negative); Nitrite Urine Negative (Negative); Protein Urine 1+ (Negative); RBC Urine Automated 0-4 /hpf (0-4); Specific Gravity Urine 1.024 (1.000-1.030); Urobilinogen Urine Positive (Negative)
[2021-04-21] MEDS ORDERED: OPTIRAY 320 125ml IV ONE (02:07)
--- NOTE | 2021-04-21 04:47 | History & Physical Report ---
Date of Service April 21, 2021 Assessment & Plan (1) Altered mental status: 86-year-old male with multiple medical comorbidities presenting from [facility] with reports of 3 days of altered mental status as well as hypoxia tonight with saturations in the 60s and 70s. Uncertain of patient's baseline mental status. At present he is awake and arousable but not oriented. Differential to include infectious, medication induced. Observation to medical floor Frequent orientation and delirium prevention strategies Follow urine culture Check TSH Present on Admission?: Yes (2) Hypoxia: Patient with reported hypoxic event prior to arrival. He has been on nasal cannula 2 L during his stay here. Saturations are adequate. No respiratory distress. Patient had similar event during prior hospitalization requiring use of a nonrebreather. Thought to be secondary to congestive heart failure. Patient also thought to be aspirating with meals Continue to monitor respiratory status Continue oxygen as needed Carefully monitor volume status Aspiration precautions Present on Admission?: Yes (3) Diabetes: Chronic. Well-controlled. Last A1c = 7.4, blood sugar mildly elevated today at 204 Hold oral agents, pioglitazone and Metformin Lantus 7 units twice daily with insulin sliding scale Present on Admission?: Yes (4) Atrial flutter: Presently in sinus rhythm Continue diltiazem 240 mg daily Present on Admission?: Yes (5) Hypothyroid: Chronic. Check TSH with a.m. labs Continue Synthroid 100 mcg daily Present on Admission?: Yes (6) Hypertension: Blood pressure mildly elevated on arrival at 163/84 Continue diltiazem as above Continue to monitor Present on Admission?: Yes (7) Esophageal thickening: ?aspiration, inflammation, malignancy -Pepcid 40mg po daily -Consider further workup with EGD Present on Admission?: Yes (8) Stroke: Acute left frontal CVA in February status post carotid endarterectomy Continue Crestor 20 mg p.o. every morning Continue Plavix 75 mg p.o. every morning F/E/NLR at 80 mL/h x 1 L, magnesium repletion with p.o. mag x3 days, heart healthy/consistent carb diet as tolerated with aspiration precautions, continue bowel regimen ProphylaxisLovenox 40 Codefull. Unable to discuss this with the patient at this time. To chart review, patient was full code in February Dispoobservation to medical Present on Admission?: Yes History of Present Illness Chief Complaint: AMS Primary Care Provider: Crest Anaid Morrell is an 86yo male with history of HTN, HLP, DM, AFlutter presenting with altered mental status/confusion and report of hypoxia from the [facility]. Patient was admitted in February 2021 with an acute 1cm infarct of the posterior left frontal lobe and severe stenosis of the proximal right internal carotid artery with an associated string sign. He underwent carotid endarterectomy with Dr. Leon on 03/02/2021. He was discharged to [facility] then subsequently to [facility]. Patient presents this evening with report of confusion/altered mental status x3 days as well as hypoxia this evening. Saturations reported to be in the 60s and 70s from the [facility]. On arrival, patient afebrile, mildly hypertensive otherwise hemodynamically stable. No respiratory distress. Adequate oxygenation on 2 L of oxygen by nasal cannula. Nursing states the patient saturations do drop to the high 80s (87 to 89%) while sleeping. Patient offers no complaints. He is uncertain why he is in the hospital this evening. Allergies Allergy/AdvReac Type Severity Reaction Status Date / Time metoprolol AdvReac Mild GI SYMPTOMS Verified 04/21/21 01:14 Home Medications Medication Instructions Recorded Confirmed Type cholecalciferol (vitamin D3) 1,000 unit PO QAM 05/30/19 04/21/21 History [Vitamin D3] tamsulosin 0.4 mg PO QPM 05/30/19 04/21/21 History levothyroxine 100 mcg tablet 100 mcg PO DAILY 02/16/21 04/21/21 History clopidogrel 75 mg PO QAM #0 tab 03/03/21 04/21/21 Rx docusate sodium 100 mg PO BID #60 cap 03/03/21 04/21/21 Rx rosuvastatin [Crestor] 20 mg PO QAM #30 tab 03/03/21 04/21/21 Rx acetaminophen [Tylenol] 650 mg PO Q6 PRN 04/21/21 04/21/21 History bisacodyl [Dulcolax (bisacodyl)] 10 mg AR UD PRN 04/21/21 04/21/21 History citalopram [Celexa] 5 mg PO HS 04/21/21 04/21/21 History diltiazem HCl 240 mg PO DAILY 04/21/21 04/21/21 History furosemide [Lasix] 20 mg PO DAILY 04/21/21 04/21/21 History magnesium hydroxide [Milk of 30 ml PO UD PRN 04/21/21 04/21/21 History Magnesia] metformin 1,000 mg PO BID 04/21/21 04/21/21 History pioglitazone 30 mg PO DAILY 04/21/21 04/21/21 History sennosides-docusate sodium [Senna 3 tab-cap PO DAILY 04/21/21 04/21/21 History Plus] Past Med/Surg History Medical History (Updated 04/21/21 @ 04:46 by Gwendolyn Truong DO) Anemia Atrial flutter BPH (benign prostatic hyperplasia) Carotid stenosis Cellulitis Chronic kidney disease Diabetes History of aortic stenosis s/p avr Hyperlipidemia Hypertension Hypothyroid Squamous cell carcinoma Multiple Surgical History (Updated 04/21/21 @ 04:30 by Gwendolyn Truong DO) S/P AVR (aortic valve replacement) Bioprosthetic (25 mm Buenrostro 2 porcine valve) October 2016 Family History Uncle Parkinson disease Brother Parkinson disease Other Family history non-contributory Social History Smoking Status: Never smoker Second Hand Exposure: No; Hx Alcohol Use: No Hx Substance Use: No Preferred Language: Yi Communication Ability: Impaired 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 Feels Safe at Home: Yes Assistive Devices: Oxygen - Continuous and Walker Review of Systems Review of Systems: Unobtainable due to cognitive status Physical Exam Physical Exam: General: patient resting comfortably, easily arousable, NAD, non-toxic in appearance, is not oriented. Following commands. Answers some questions appropriately Skin: warm, dry, intact, no rashes or lesions HEENT: NC/AT, PERRL, EOMI, anicteric sclera, conjunctiva without injection, external ear normal to inspection and nontender, nares patent, dry mucus membranes, dentition intact, no oropharyngeal lesions, neck supple, trachea midline, no LAD, no thyromegaly, no JVD Heart: +S1/S2, regular, 3/6 systolic ejection murmur at left sternal border with radiation across the precordium Lungs: equal air entry bilaterally, no rales/rhonchi/wheezes Abd: +BS, soft, NT/ND, no masses/organomegaly/ascites Ext: warm, 2+ pulses in UE/LE bilaterally, no clubbing/cyanosis, 3+ edema of bilateral lower extremities, right greater than left Neuro: Patient awake, not oriented. Following commands. Answers some questions appropriately. No facial droop. Speech is clear. Muscle strength 5 out of 5 in upper and lower extremities bilaterally Results & Data Results & Data ([facility]) Vital Signs (Past 12 Hours) Vital Signs Temp Pulse Resp BP Pulse Ox 04/21/21 02:42 86 18 163/84 H 96 04/21/21 02:05 86 19 162/79 H 97 04/21/21 01:00 85 16 155/87 H 93 04/21/21 00:34 85 16 159/84 H 98 04/21/21 00:15 83 15 154/70 H 97 04/21/21 00:00 83 21 157/88 H 100 04/20/21 23:45 82 18 148/75 H 99 04/20/21 23:30 82 16 150/96 H 98 04/20/21 23:15 81 20 160/78 H 98 04/20/21 23:00 83 17 156/84 H 98 04/20/21 22:50 86 18 04/20/21 22:40 87 18 95 04/20/21 22:38 85 18 95 04/20/21 22:37 88 16 100 04/20/21 22:30 151/85 H 99 04/20/21 22:29 144/77 H 98 04/20/21 22:20 81 15 144/77 H 98 04/20/21 22:10 85 15 04/20/21 22:00 81 14 04/20/21 21:50 81 17 95 04/20/21 21:40 81 19 95 04/20/21 21:30 83 16 99 04/20/21 21:26 94 04/20/21 21:20 86 24 97 04/20/21 21:10 85 17 99 04/20/21 21:06 86 17 100 04/20/21 20:37 36.6 C 81 17 153/82 H 92 Laboratory Results Laboratory Results WBC 6.20 K/uL (4.8-10.8) 04/20/21 22:41 RBC 3.43 M/uL (4.7-6.1) L 04/20/21 22:41 Hgb 11.5 g/dL (14.0-18.0) L 04/20/21 22:41 Hct 33.2 % (42-52) L 04/20/21 22:41 MCV 96.8 fL (80-100) 04/20/21 22:41 MCH 33.5 pg (25-34) 04/20/21 22:41 MCHC 34.6 g/dL (32-36) 04/20/21 22:41 RDW Std Deviation 51.9 fL (36.4-46.3) H 04/20/21 22:41 RDW Coeff of Kylee 14.7 % (11.5-14.5) H 04/20/21 22:41 Plt Count 159 K/uL (130-400) 04/20/21 22:41 MPV 9.0 fL (7.4-10.4) 04/20/21 22:41 Immature Gran % (Auto) 0.6 % 04/20/21 22:41 Neut % (Auto) 79.0 % 04/20/21 22:41 Lymph % (Auto) 10.0 % 04/20/21 22:41 [place] % (Auto) 9.4 % 04/20/21 22:41 Eos % (Auto) 1.0 % 04/20/21 22:41 Baso % (Auto) 0.0 % 04/20/21 22:41 Neut # (Auto) 4.90 K/uL (1.4-6.5) 04/20/21 22:41 Lymph # (Auto) 0.62 K/uL (1.2-3.4) L 04/20/21 22:41 [place] # (Auto) 0.58 K/uL (0.11-0.59) 04/20/21 22:41 Eos # (Auto) 0.06 K/uL (0-0.5) 04/20/21 22:41 Baso # (Auto) 0.00 K/uL (0-0.2) 04/20/21 22:41 Immature Gran # (Auto) 0.04 K/uL (0.00-0.02) H 04/20/21 22:41 PT Cancelled 04/20/21 22:00 INR Cancelled 04/20/21 22:00 APTT Cancelled 04/20/21 22:00 PTT Ratio Cancelled 04/20/21 22:00 Sodium 139 mmol/L (136-145) 04/20/21 22:41 Potassium 3.5 mmol/L (3.5-5.1) 04/20/21 22:41 Chloride 103 mmol/L (98-107) 04/20/21 22:41 Carbon Dioxide 32 mmol/L (21-32) 04/20/21 22:41 Anion Gap 4.0 (3-11) 04/20/21 22:41 BUN 14 mg/dl (7-18) 04/20/21 22:41 Creatinine 0.77 mg/dl (0.6-1.4) 04/20/21 22:41 Est Cr Clr Drug Dosing 76.5 ml/min 04/20/21 22:41 Est GFR ( Amer) 93.9 ml/min 04/20/21 22:41 Est GFR (Non-Af Amer) 81.0 ml/min 04/20/21 22:41 BUN/Creatinine Ratio 18.5 (10-20) 04/20/21 22:41 Glucose 204 mg/dl (70-99) H 04/20/21 22:41 Calcium 8.2 mg/dl (8.5-10.1) L 04/20/21 22:41 Magnesium 1.7 mg/dl (1.8-2.4) L 04/20/21 22:41 Total Bilirubin 0.9 mg/dl (0.2-1) 04/20/21 22:41 AST 42 U/L (15-37) H 04/20/21 22:41 ALT 27 U/L (12-78) 04/20/21 22:41 Alkaline Phosphatase 84 U/L (45-117) 04/20/21 22:41 Troponin I 0.035 ng/ml (0-0.045) 04/20/21 22:41 NT-Pro-B Natriuret Pep 1407 pg/ml (0-1800) 04/20/21 22:41 Total Protein 5.6 gm/dl (6.4-8.2) L 04/20/21 22:41 Albumin 2.6 gm/dl (3.4-5.0) L 04/20/21 22:41 Globulin 3.0 gm/dl (2.5-4.0) 04/20/21 22:41 Albumin/Globulin Ratio 0.9 (0.9-2) 04/20/21 22:41 Urine Color Dark Yellow 04/21/21 00:10 Urine Appearance Clear (Clear) 04/21/21 00:10 Urine pH 6.0 (4.5-7.5) 04/21/21 00:10 Ur Specific [place] 1.024 (1.000-1.030) 04/21/21 00:10 Urine Protein 1+ (Negative) H 04/21/21 00:10 Urine Glucose (UA) 1+ (Negative) H 04/21/21 00:10 Urine Ketones Trace (Negative) H 04/21/21 00:10 Urine Blood Negative (Negative) 04/21/21 00:10 Urine Nitrite Negative (Negative) 04/21/21 00:10 Urine Bilirubin Negative (Negative) 04/21/21 00:10 Urine Urobilinogen Positive (Negative) H 04/21/21 00:10 Ur Leukocyte Esterase Negative (Negative) 04/21/21 00:10 Urine WBC (Auto) 1-5 /hpf (0-5) 04/21/21 00:10 Urine RBC (Auto) 0-4 /hpf (0-4) 04/21/21 00:10 U Hyaline Cast (Auto) 1-5 /lpf (0-5) 04/21/21 00:10 U Epithel Cells (Auto) 10-20 /lpf (0-5) H 04/21/21 00:10 Urine Bacteria (Auto) 1+ (Negative) H 04/21/21 00:10 COVID-19 Eval Order Covid19 at [facility] 04/21/21 03:14 Diagnostic Findings CTA chest: Per stat readno evidence of pulmonary emboli. Very small bilateral pleural effusions with adjacent subsegmental atelectasis. No evidence of pneumothorax. Area of abnormal thickening of the upper thoracic esophagus CT head: Per stat readmotion artifact. No intracranial hemorrhage, mass- effect, edema or hydrocephalus. Parenchymal atrophy. Paranasal sinuses and mastoid air cells are clear. No fracture ECG Additional Comments: EKG with normal sinus rhythm at 87 bpm, AR = 164, QRS = 80, QTC = 425. Nonspecific T wave changes in inferior, lateral leads Code Status & VTE Plan VTE Prophylaxis Plan VTE Prophylaxis will be ordered: Yes PG Care Time/CCT Total # of Minutes Spent Total Time Spent with Patient: Total time spent is greater than 50% in coordination of care (as documented) at patient's floor/unit and/or counseling patient: Coding Level of Care Code 39017 OBS Care - Level 3 Diagnoses Altered mental status R41.82 Altered mental status type: unspecified Hypoxia R09.02 Diabetes E11.59 Diabetes mellitus type: type 2 Diabetes mellitus shelter insulin use: without shelter use Diabetes mellitus complication status: with circulatory complication Diabetes mellitus complication detail: with other circulatory complications Atrial flutter I48.92 Atrial flutter type: unspecified Hypothyroid E03.9 Hypothyroidism type: unspecified Hypertension I10 Hypertension type: essential hypertension Esophageal thickening K22.8 Stroke I63.9 CVA mechanism: unspecified (1) Diabetes Diabetes mellitus type: type 2 Diabetes mellitus shelter insulin use: without shelter use Diabetes mellitus complication status: with circulatory complication Diabetes mellitus complication detail: with other circulatory complications Qualified Code(s): E11.59 - Type 2 diabetes mellitus with other circulatory complications (2) Atrial flutter Atrial flutter type: unspecified Qualified Code(s): I48.92 - Unspecified atri al flutter (3) Hypothyroid Hypothyroidism type: unspecified Qualified Code(s): E03.9 - Hypothyroidism, unspecified (4) Hypertension Hypertension type: essential hypertension Qualified Code(s): I10 - Essential (primary) hypertension (5) Stroke CVA mechanism: unspecified Qualified Code(s): I63.9 - Cerebral infarction, unspecified (6) Altered mental status Altered mental status type: unspecified Qualified Code(s): R41.82 - Altered mental status, unspecified
--- NOTE | 2021-04-21 05:08 | Emergency Department Note ---
Impression & Plan Acute alteration in mental status, Hypoxia ED Provider Note NAME: TOSHA MILLER JR AGE: 86 SEX: M ARRIVES VIA: Ambulance INFORMANT: Patient's ED PROVIDER(S): Allyson Garsia DO CHIEF COMPLAINT: Hypoxia PLAN: [facility]: Stable MEDICAL DECISION MAKING: This is an 86-year-old male patient with a recent history of stroke who presents to the emergency department after having an episode of hypoxia and worsening mental status from Center care. Triage Nursing notes reviewed and agree with them. Additional history obtained from the is at the bedside Prior medical records reviewed Vital Signs: reviewed and remarkable for hypertension Differential diagnosis: Recurrent CVA, intracranial hemorrhage, pneumonia, congestive heart failure, PE Diagnostics interpreted by me: ECG: Normal sinus rhythm at a rate of [address] segment elevation to suggest ischemia. There is T wave flattening in the inferior leads compared to an EKG from February. There is no ectopy. Cardiac Monitoring: Normal sinus rhythm at a rate of 84 Laboratory studies: See below Imaging studies: As per stat read CT head: Motion artifact. No intracranial hemorrhage, mass-effect, edema or hydrocephalus. Parenchymal atrophy. Paranasal sinuses and mastoid air cells are clear. No fracture. CTA chest: No evidence of pulmonary emboli. Very small bilateral pleural effusions with adjacent subsegmental atelectasis. No evidence of pneumothorax. Area of abnormal thickening of the upper thoracic esophagus Portable chest x-ray: As interpreted by me Mild pulmonary vascular congestion HPI: 86/M arrives for evaluation of hypoxia. The patient apparently had some garbled speech 2 days ago while talking to a friend on the phone. His explains that he has had increased sleep over the past 48 hours with lower extremity edema. Tonight, they found him with O2 saturations between 60 and 70%. She was told that they have been having difficulty getting his compression stockings on his lower extremities because of the significant edema. Because of their Covid restrictions, she can only see him once a week and therefore is not completely aware of all of the history. ROS: See above HPI for pertinent positives & negatives. A total of 10 systems reviewed and were otherwise negative. PAST MEDICAL HISTORY:See Below PAST SURGICAL HISTORY:See Below FAMILY HISTORY:See Below SOCIAL HISTORY:See Below HOME MEDICATIONS:See list ALLERGIES:See list VITALS:See Below PHYSICAL EXAMINATION: HEENT: Head - normocephalic and atraumatic. Pupils are equal, round, and reactive to light. Extraocular eye muscles are intact and sclera are anicteric. Nose - moist nasal mucosa without discharge. Mouth -dry buccal mucosa. Oropharynx is nonerythematous and there is no tonsillar exudate or edema noted. Neck: Supple; no JVD or nuchal rigidity Heart: Regular rate and rhythm. There is a normal S1 and S2 with no murmurs, clicks, or gallops appreciated. Lungs: Diminished breath sounds at both lung bases Abdomen: Soft, completely nontender, nondistended, with good bowel sounds. There are no palpable pulsatile masses or hepatosplenomegaly. There is no guarding, rigidity, or rebound noted. Extremities: The patient has significant edema of his entire lower extremities up to his knees. Neuro:The patient is awake and alert but not oriented to day time or place. However, when asked who was sitting next to him. He knew that it was his and what her birthdate was. ED COURSE: Times/Reassessments: 2340: The patient was evaluated in room A3. A complete history and physical was performed. An order was placed for continuous cardiac monitoring. A twelve-lead EKG was obtained. A portable chest x-ray was performed. Laboratory studies were drawn. The patient will go for CT scan of the brain because of the altered mental status. Patient will go for a CTA of the chest to rule out a PE. 0130:I reviewed the results of the laboratory studies, chest x-ray and CTs with the patient's . The patient is sleeping at this time. He is hemodynamically stable I will discussed the case with the [facility] hospitalist and they will evaluate the patient for further care. Allyson Garsia DO Past Med/Surg History Medical History (Updated 04/21/21 @ 19:23 by Allyson Garsia DO) Anemia Atrial flutter BPH (benign prostatic hyperplasia) Carotid stenosis Cellulitis Chronic kidney disease Diabetes History of aortic stenosis s/p avr Hyperlipidemia Hypertension Hypothyroid Squamous cell carcinoma Multiple Surgical History (Updated 04/21/21 @ 04:30 by Gwendolyn Truong DO) S/P AVR (aortic valve replacement) Bioprosthetic (25 mm Buenrostro 2 porcine valve) October 2016 Family History Uncle Parkinson disease Brother Parkinson disease Other Family history non-contributory Social History Smoking Status: Former smoker Second Hand Exposure: No; Hx Alcohol Use: No Hx Substance Use: No Preferred Language: Arabic Communication Ability: Effective Service Desk Technician Required: No Beliefs That Will Affect Care: None Current Living Situation: Other Current Living Situation Comment: home alone with spouse. Feels Safe at Home: Yes Assistive Devices: Glasses, Hearing Aid - Bilateral, Hearing Aid - Left and Oxygen - Continuous Allergies Allergies Allergy/AdvReac Type Severity Reaction Status Date / Time metoprolol AdvReac Mild GI SYMPTOMS Verified 04/21/21 01:14 Home Meds Home Medications Medication Instructions Recorded Confirmed cholecalciferol (vitamin D3) 1,000 unit PO QAM 05/30/19 04/21/21 [Vitamin D3] tamsulosin 0.4 mg PO QPM 05/30/19 04/21/21 levothyroxine 100 mcg tablet 100 mcg PO DAILY 02/16/21 04/21/21 acetaminophen [Tylenol] 650 mg PO Q6 PRN 04/21/21 04/21/21 bisacodyl [Dulcolax (bisacodyl)] 10 mg MN UD PRN 04/21/21 04/21/21 citalopram [Celexa] 5 mg PO HS 04/21/21 04/21/21 diltiazem HCl 240 mg PO DAILY 04/21/21 04/21/21 furosemide [Lasix] 20 mg PO DAILY 04/21/21 04/21/21 magnesium hydroxide [Milk of 30 ml PO UD PRN 04/21/21 04/21/21 Magnesia] metformin 1,000 mg PO BID 04/21/21 04/21/21 pioglitazone 30 mg PO DAILY 04/21/21 04/21/21 sennosides-docusate sodium [Senna 3 tab-cap PO DAILY 04/21/21 04/21/21 Plus] Previous Rx's Medication Instructions Recorded clopidogrel 75 mg PO QAM #0 tab 03/03/21 docusate sodium 100 mg PO BID #60 cap 03/03/21 rosuvastatin [Crestor] 20 mg PO QAM #30 tab 03/03/21 Results & Data (ED) Vital Signs Vital Signs - 24 hr 04/20/21 20:37 04/20/21 21:06 04/20/21 21:10 Temperature 36.6 C Temperature Source Oral Pulse Rate 81 86 85 Pulse Rate from SpO2 Sensor 84 Pulse Rhythm Regular Pulse Strength Normal Respiratory Rate 17 17 17 Respiratory Effort / Characteristics Non-Labored Respiratory Depth Normal Respiratory Pattern Regular Blood Pressure 153/82 H Blood Pressure Mean 105 Blood Pressure Position Lying Pulse Oximetry 92 100 99 Oxygen Delivery Method Room Air Nasal Cannula Nasal Cannula Oxygen Flow Rate 2 2 Sepsis Recent Fever Within 48 Hours No Sepsis New/Unexplained Change in Mental Status No Sepsis Action Taken by Nursing No Action Required 04/20/21 21:20 04/20/21 21:26 04/20/21 21:30 Temperature Temperature Source Pulse Rate 86 83 Pulse Rate from SpO2 Sensor Pulse Rhythm Pulse Strength Respiratory Rate 24 16 Respiratory Effort / Characteristics Non-Labored Respiratory Depth Normal Respiratory Pattern Regular Blood Pressure Blood Pressure Mean Blood Pressure Position Pulse Oximetry 97 94 99 Oxygen Delivery Method Nasal Cannula Room Air Nasal Cannula Oxygen Flow Rate 2 2 Sepsis Recent Fever Within 48 Hours Sepsis New/Unexplained Change in Mental Status Sepsis Action Taken by Nursing 04/20/21 21:40 04/20/21 21:50 04/20/21 22:00 Temperature Temperature Source Pulse Rate 81 81 81 Pulse Rate from SpO2 Sensor Pulse Rhythm Pulse Strength Respiratory Rate 19 17 14 Respiratory Effort / Characteristics Respiratory Depth Respiratory Pattern Blood Pressure Blood Pressure Mean Blood Pressure Position Pulse Oximetry 95 95 Oxygen Delivery Method Room Air Room Air Oxygen Flow Rate Sepsis Recent Fever Within 48 Hours Sepsis New/Unexplained Change in Mental Status Sepsis Action Taken by Nursing 04/20/21 22:10 04/20/21 22:20 04/20/21 22:29 Temperature Temperature Source Pulse Rate 85 81 Pulse Rate from SpO2 Sensor 80 81 Pulse Rhythm Pulse Strength Respiratory Rate 15 15 Respiratory Effort / Characteristics Respiratory Depth Respiratory Pattern Blood Pressure 144/77 H 144/77 H Blood Pressure Mean 99 99 Blood Pressure Position Pulse Oximetry 98 98 Oxygen Delivery Method Nasal Cannula Room Air Oxygen Flow Rate 2 Sepsis Recent Fever Within 48 Hours Sepsis New/Unexplained Change in Mental Status Sepsis Action Taken by Nursing 04/20/21 22:30 04/20/21 22:37 04/20/21 22:38 Temperature Temperature Source Pulse Rate 88 85 Pulse Rate from SpO2 Sensor 81 88 Pulse Rhythm Pulse Strength Respiratory Rate 16 18 Respiratory Effort / Characteristics Non-Labored Respiratory Depth Respiratory Pattern Blood Pressure 151/85 H Blood Pressure Mean 107 Blood Pressure Position Pulse Oximetry 99 100 95 Oxygen Delivery Method Room Air Room Air Room Air Oxygen Flow Rate Sepsis Recent Fever Within 48 Hours Sepsis New/Unexplained Change in Mental Status Sepsis Action Taken by Nursing 04/20/21 22:40 04/20/21 22:50 04/20/21 23:00 Temperature Temperature Source Pulse Rate 87 86 83 Pulse Rate from SpO2 Sensor 88 84 81 Pulse Rhythm Pulse Strength Respiratory Rate 18 18 17 Respiratory Effort / Characteristics Respiratory Depth Respiratory Pattern Blood Pressure 156/84 H Blood Pressure Mean 108 Blood Pressure Position Pulse Oximetry 95 98 Oxygen Delivery Method Room Air Nasal Cannula Oxygen Flow Rate 2 Sepsis Recent Fever Within 48 Hours Sepsis New/Unexplained Change in Mental Status Sepsis Action Taken by Nursing 04/20/21 23:15 04/20/21 23:30 04/20/21 23:45 Temperature Temperature Source Pulse Rate 81 82 82 Pulse Rate from SpO2 Sensor 81 83 81 Pulse Rhythm Pulse Strength Respiratory Rate 20 16 18 Respiratory Effort / Characteristics Respiratory Depth Respiratory Pattern Blood Pressure 160/78 H 150/96 H 148/75 H Blood Pressure Mean 105 114 99 Blood Pressure Position Pulse Oximetry 98 98 99 Oxygen Delivery Method Nasal Cannula Nasal Cannula Nasal Cannula Oxygen Flow Rate 2 2 2 Sepsis Recent Fever Within 48 Hours Sepsis New/Unexplained Change in Mental Status Sepsis Action Taken by Nursing 04/21/21 00:00 04/21/21 00:15 04/21/21 00:34 Temperature Temperature Source Pulse Rate 83 83 85 Pulse Rate from SpO2 Sensor 83 83 85 Pulse Rhythm Pulse Strength Respiratory Rate 21 15 16 Respiratory Effort / Characteristics Respiratory Depth Respiratory Pattern Blood Pressure 157/88 H 154/70 H 159/84 H Blood Pressure Mean 111 98 109 Blood Pressure Position Pulse Oximetry 100 97 98 Oxygen Delivery Method Nasal Cannula Nasal Cannula Nasal Cannula Oxygen Flow Rate 2 2 2 Sepsis Recent Fever Within 48 Hours Sepsis New/Unexplained Change in Mental Status Sepsis Action Taken by Nursing 04/21/21 01:00 04/21/21 02:05 04/21/21 02:42 Temperature Temperature Source Pulse Rate 85 86 86 Pulse Rate from SpO2 Sensor 86 88 86 Pulse Rhythm Pulse Strength Respiratory Rate 16 19 18 Respiratory Effort / Characteristics Respiratory Depth Respiratory Pattern Blood Pressure 155/87 H 162/79 H 163/84 H Blood Pressure Mean 109 106 110 Blood Pressure Position Pulse Oximetry 93 97 96 Oxygen Delivery Method Nasal Cannula Nasal Cannula Nasal Cannula Oxygen Flow Rate 2 2 2 Sepsis Recent Fever Within 48 Hours Sepsis New/Unexplained Change in Mental Status Sepsis Action Taken by Nursing Laboratory Data Result diagrams: 04/20/21 22:41 04/20/21 22:41 Lab Results 04/20/21 04/20/21 04/20/21 Range/Units 22:00 22:41 22:41 WBC 6.20 (4.8-10.8) K/uL RBC 3.43 L (4.7-6.1) M/uL Hgb 11.5 L (14.0-18.0) g/dL Hct 33.2 L (42-52) % MCV 96.8 (80-100) fL MCH 33.5 (25-34) pg MCHC 34.6 (32-36) g/dL RDW Std Deviation 51.9 H (36.4-46.3) fL RDW Coeff of Kylee 14.7 H (11.5-14.5) % Plt Count 159 (130-400) K/uL MPV 9.0 (7.4-10.4) fL Immature Gran % (Auto) 0.6 % Neut % (Auto) 79.0 % Lymph % (Auto) 10.0 % Davison % (Auto) 9.4 % Eos % (Auto) 1.0 % Baso % (Auto) 0.0 % Neut # (Auto) 4.90 (1.4-6.5) K/uL Lymph # (Auto) 0.62 L (1.2-3.4) K/uL Davison # (Auto) 0.58 (0.11-0.59) K/uL Eos # (Auto) 0.06 (0-0.5) K/uL Baso # (Auto) 0.00 (0-0.2) K/uL Immature Gran # (Auto) 0.04 H (0.00-0.02) K/uL PT Cancelled INR Cancelled APTT Cancelled PTT Ratio Cancelled Sodium 139 (136-145) mmol/L Potassium 3.5 (3.5-5.1) mmol/L Chloride 103 (98-107) mmol/L Carbon Dioxide 32 (21-32) mmol/L Anion Gap 4.0 (3-11) BUN 14 (7-18) mg/dl Creatinine 0.77 (0.6-1.4) mg/dl Est Cr Clr Drug Dosing 76.5 ml/min Est GFR ( Amer) 93.9 ml/min Est GFR (Non-Af Amer) 81.0 ml/min BUN/Creatinine Ratio 18.5 (10-20) Glucose 204 H (70-99) mg/dl Calcium 8.2 L (8.5-10.1) mg/dl Magnesium 1.7 L (1.8-2.4) mg/dl Total Bilirubin 0.9 (0.2-1) mg/dl AST 42 H (15-37) U/L ALT 27 (12-78) U/L Alkaline Phosphatase 84 (45-117) U/L Troponin I 0.035 (0-0.045) ng/ml NT-Pro-B Natriuret Pep 1407 (0-1800) pg/ml Total Protein 5.6 L (6.4-8.2) gm/dl Albumin 2.6 L (3.4-5.0) gm/dl Globulin 3.0 (2.5-4.0) gm/dl Albumin/Globulin Ratio 0.9 (0.9-2) Urine Color Urine Appearance (Clear) Urine pH (4.5-7.5) Ur Specific Issue (1.000-1.030) Urine Protein (Negative) Urine Glucose (UA) (Negative) Urine Ketones (Negative) Urine Blood (Negative) Urine Nitrite (Negative) Urine Bilirubin (Negative) Urine Urobilinogen (Negative) Ur Leukocyte Esterase (Negative) Urine WBC (Auto) (0-5) /hpf Urine RBC (Auto) (0-4) /hpf U Hyaline Cast (Auto) (0-5) /lpf U Epithel Cells (Auto) (0-5) /lpf Urine Bacteria (Auto) (Negative) COVID-19 Eval Order SARS-CoV-2 (PCR) (Negative) 04/21/21 04/21/21 04/21/21 Range/Units 00:10 03:14 03:14 WBC (4.8-10.8) K/uL RBC (4.7-6.1) M/uL Hgb (14.0-18.0) g/dL Hct (42-52) % MCV (80-100) fL MCH (25-34) pg MCHC (32-36) g/dL RDW Std Deviation (36.4-46.3) fL RDW Coeff of Kylee (11.5-14.5) % Plt Count (130-400) K/uL MPV (7.4-10.4) fL Immature Gran % (Auto) % Neut % (Auto) % Lymph % (Auto) % Davison % (Auto) % Eos % (Auto) % Baso % (Auto) % Neut # (Auto) (1.4-6.5) K/uL Lymph # (Auto) (1.2-3.4) K/uL Davison # (Auto) (0.11-0.59) K/uL Eos # (Auto) (0-0.5) K/uL Baso # (Auto) (0-0.2) K/uL Immature Gran # (Auto) (0.00-0.02) K/uL PT INR APTT PTT Ratio Sodium (136-145) mmol/L Potassium (3.5-5.1) mmol/L Chloride (98-107) mmol/L Carbon Dioxide (21-32) mmol/L Anion Gap (3-11) BUN (7-18) mg/dl Creatinine (0.6-1.4) mg/dl Est Cr Clr Drug Dosing ml/min Est GFR ( Amer) ml/min Est GFR (Non-Af Amer) ml/min BUN/Creatinine Ratio (10-20) Glucose (70-99) mg/dl Calcium (8.5-10.1) mg/dl Magnesium (1.8-2.4) mg/dl Total Bilirubin (0.2-1) mg/dl AST (15-37) U/L ALT (12-78) U/L Alkaline Phosphatase (45-117) U/L Troponin I (0-0.045) ng/ml NT-Pro-B Natriuret Pep (0-1800) pg/ml Total Protein (6.4-8.2) gm/dl Albumin (3.4-5.0) gm/dl Globulin (2.5-4.0) gm/dl Albumin/Globulin Ratio (0.9-2) Urine Color Dark Yellow Urine Appearance Clear (Clear) Urine pH 6.0 (4.5-7.5) Ur Specific Issue 1.024 (1.000-1.030) Urine Protein 1+ H (Negative) Urine Glucose (UA) 1+ H (Negative) Urine Ketones Trace H (Negative) Urine Blood Negative (Negative) Urine Nitrite Negative (Negative) Urine Bilirubin Negative (Negative) Urine Urobilinogen Positive H (Negative) Ur Leukocyte Esterase Negative (Negative) Urine WBC (Auto) 1-5 (0-5) /hpf Urine RBC (Auto) 0-4 (0-4) /hpf U Hyaline Cast (Auto) 1-5 (0-5) /lpf U Epithel Cells (Auto) 10-20 H (0-5) /lpf Urine Bacteria (Auto) 1+ H (Negative) COVID-19 Eval [address] Covid19 at [facility] SARS-CoV-2 (PCR) NEGATIVE (Negative) Administered Medications Clopidogrel Bisulfate (Clopidogrel Bisulfate 75 Mg Tab) 75 mg PO QAM [facility] Stop: 05/21/21 09:16 Last Admin: 04/21/21 10:48 Dose: 75 mg Documented by: [id number] Diltiazem HCl (Diltiazem Hcl 240 Mg Capcr) 240 mg PO DAILY [facility] Stop: 05/21/21 09:16 Last Admin: 04/21/21 10:49 Dose: 240 mg Documented by: [id number] Docusate Sodium (Docusate Sodium 100 Mg Cap) 100 mg PO BID [facility] Stop: 05/21/21 09:16 Last Admin: 04/21/21 10:48 Dose: 100 mg Documented by: [id number] Enoxaparin Sodium (Enoxaparin Inj 40 Mg/0.4 Ml Syr) 40 mg SQ Q24H [facility] Stop: 05/21/21 09:16 Last Admin: 04/21/21 10:49 Dose: 40 mg Documented by: [id number] Famotidine (Famotidine 40 Mg Tablet) 40 mg PO QAM [facility] Stop: 05/21/21 09:16 Last Admin: 04/21/21 10:47 Dose: 40 mg Documented by: [id number] Furosemide (Furosemide 20 Mg Tab) 20 mg PO DAILY [facility] Stop: 05/21/21 09:16 Last Admin: 04/21/21 10:48 Dose: 20 mg Documented by: [id number] Ceftriaxone Sodium 2,000 mg/ (Dextrose) 70 mls @ 100 mls/hr IV Q24H [facility]; Protocol Stop: 04/26/21 16:59 Last Admin: 04/21/21 17:42 Dose: 100 mls/hr Documented by: [id number] Insulin Aspart (Insulin Aspart 100 Units/Ml 3 Ml Pen) 0 units SC ACHS [facility] Stop: 05/21/21 09:16 Last Admin: 04/21/21 18:25 Dose: 3 units Documented by: [id number] Cosigned by: [id number] Admin: 04/21/21 12:43 Dose: 3 units Documented by: [id number] Cosigned by: [id number] Admin: 04/21/21 11:02 Dose: 4 units Documented by: [id number] Cosigned by: [id number] Insulin Glargine (Insulin Glargine Solostar 100 Units/Ml 3 Ml Pen) 7 units SC BID [facility] Stop: 05/21/21 09:16 Last Admin: 04/21/21 10:59 Dose: 7 units Documented by: [id number] Cosigned by: [id number] Levothyroxine Sodium (Levothyroxine Sodium 100 Mcg Tablet) 100 mcg PO DAILYBB [facility] Stop: 05/21/21 09:16 Last Admin: 04/21/21 10:47 Dose: Not Given Documented by: [id number] Magnesium Oxide (Magnesium Oxide 400 Mg Tab) 400 mg PO BID [facility] Stop: 04/23/21 08:59 Last Admin: 04/21/21 10:47 Dose: 400 mg Documented by: [id number] Rosuvastatin Calcium (Rosuvastatin Calcium 20 Mg Tab) 20 mg PO QAM [facility] Stop: 05/21/21 09:16 Last Admin: 04/21/21 10:47 Dose: 20 mg Documented by: [id number] Senna/Docusate Sodium (Docusate Sodium/Senna 50/8.6mg Tab) 3 tab PO DAILY [facility] Stop: 05/21/21 09:16 Last Admin: 04/21/21 10:48 Dose: 3 tab Documented by: [id number] Discontinued Medications Lactated Ringer's (Lr) 1,000 mls @ 80 mls/hr IV .[id number] [facility] Stop: 04/21/21 21:46 Last Infusion: 04/21/21 16:51 Dose: 0 mls/hr Documented by: [id number] Admin: 04/21/21 10:44 Dose: 80 mls/hr Documented by: [id number] Ioversol (Optiray 320 125ml) 119 ml IV ONCE ONE Stop: 04/21/21 02:08 Last Admin: 04/21/21 02:07 Dose: 1 ml Documented by: [id number] Imaging Data Radiologist's Impression: Chest X-Ray 04/20/21 00:00 XR chest 1V portable HISTORY: Shortness of breath. COMPARISON: Chest 03/02/2021. FINDINGS: There are low lung volumes. No pneumothorax. The heart remains enlarged. 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 A few left basilar linear densities favor subsegmental atelectasis or scarring. Trace bilateral pleural effusions. There is mild central pulmonary vascular congestion without overt edema. No new focal lung consolidations to suggest pneumonia. IMPRESSION: Mild central pulmonary vascular congestion without overt edema. Trace bilateral pleural effusions. ACT 112: Negative or not required by law. Electronically signed by: Peña Herrera M.D. 04/21/2021 8:[address] 04/20/21 23:58 CT head/brain wo con CLINICAL HISTORY: eval for new CVA COMPARISON STUDY: February 25, 2021 TECHNIQUE: Axial CT of the brain is performed from the vertex to the skull base. IV contrast was not administered for this examination. A dose lowering technique was utilized adhering to the principles of ALARA. CT DOSE: 1151.75 mGy.cm FINDINGS: No acute intracranial hemorrhage, no midline shift or space occupying lesions seen. Evaluation is slightly limited due to motion and beam hardening artifact. Leal-white matter differentiation is preserved. Redemonstration of mild decrease in attenuation within periventricular white matter which is unchanged since prior study and could represent chronic small vessel ischemia. Diffuse atrophic changes of brain parenchyma are again seen and associated with ex vacuo dilatation of ventricles which is unchanged since recent prior study. There is no acute depressed skull fractures seen. Visualized paranasal sinuses and mastoid air cells are patent and well-aerated. IMPRESSION: 1. No acute intracranial hemorrhage, no midline shift or space occupying lesions. 2. Limited study due to motion and beam hardening artifact. 3. Atrophic changes of brain parenchyma associated with ex vacuo dilatation of ventricles, stable since prior. 4. Chronic small vessel ischemia. ACT 112: Negative or not required by law. The above report was generated using voice recognition software. It may contain grammatical, syntax or spelling errors. Electronically signed by: Steph Villagran DO 04/21/2021 7:35 AM Chest CTA 04/21/21 01:35 CT angio chest PE protocol CT DOSE: 431.96 mGy.cm HISTORY: 86 years-old Male with PE. Acute shortness of breath TECHNIQUE: Multiple CTA images of the chest were obtained after the intravenous administration of 119 ml Optiray. Coronal and sagittal MIPS were obtained from the axial data set and were submitted for review. All measurements were obtained according to NASCET criteria. A dose lowering technique was utilized adhering to the principles of ALARA. COMPARISON: CTA chest 11/10/2016 FINDINGS: CTA: Mild cardiomegaly. No pericardial effusion. Aortic valvular prosthesis. Extensive calcifications of the coronary arteries. Mitral annular calcifications. Atherosclerotic plaque of the thoracic aorta without aneurysm or dissection. Mild descending thoracic aortic tortuosity. The pulmonary arterial tree is opacified to the level of the segmental branches and demonstrates no filling defects to suggest thromboembolic disease. The subsegmental branches are not well visualized secondary to contrast bolus timing. CT CHEST: Unremarkable thyroid. No adenopathy. Small layering pleural effusions. No pneumothorax. Mild pleural thickening of the lung apices. 7 mm subpleural solid nodule of the right lung apex, image 226 is unchanged. Mild intralobular septal thickening. Mild dependent bibasilar consolidative opacities. 10 mm subpleural solid nodule of the right upper lobe on image 207 is new from 2017. 5 mm solid nodule of the right upper lobe on image 216 was also not definitively seen on prior. Mild bronchial wall thickening. Central airways appear patent. No pneumoperitoneum. There is circumferential wall thickening of the upper esophagus. Trace perisplenic free fluid. Unremarkable soft tissues. No acute fracture. Healed chronic right-sided rib fractures. Chronic appearing T4 compression deformity. 25% superior endplate compression deformity at T6 without retropulsion is unchanged. 25% superior compression deformity at T7 with 50% T8 compression deformity, new from comparison. T11 severe compression deformity with 4 mm retropulsion is also new from comparison. IMPRESSION: 1. No pulmonary emboli. 2. Cardiomegaly with mild pulmonary edema and small layering pleural effusions. 3. Mild dependent subsegmental bibasilar atelectasis. 4. There are a few solid nodules noted within the right upper lobe including a subpleural 10 mm solid nodule which is favored to represent scarring. A 3-6 month follow-up chest CT is recommended. 5. Age-indeterminate T7, T8 and T11 compression deformities are new from 2017. Additionally, there is 4 mm retropulsion at T11 without significant central canal stenosis. Correlate with point point tenderness. ACT 112: Negative or not required by law. The above report was generated using voice recognition software. It may contain grammatical, syntax or spelling errors. Electronically signed by: Deandre Ngo M.D. 04/21/2021 8:14 AM Discharge Plan Visit Data Chief Complaint: Respiratory Problems ED Provider: Allyson Garsia Discharge Problem: Acute alteration in mental status, Hypoxia Patient Disposition: Admitted As Inpatient Discharge Instructions Interventions: ED Discharge Assessment Last Done: 04/21/21 06:42
--- NOTE | 2021-04-21 07:36 | CT Scan Report ---
CT head/brain wo con CLINICAL HISTORY: eval for new CVA COMPARISON STUDY: February 25, 2021 TECHNIQUE: Axial CT of the brain is performed from the vertex to the skull base. IV contrast was not administered for this examination. A dose lowering technique was utilized adhering to the principles of ALARA. CT DOSE: 1151.75 mGy.cm FINDINGS: No acute intracranial hemorrhage, no midline shift or space occupying lesions seen. Evaluation is sli ghtly limited due to motion and beam hardening artifact. Leal-white matter differentiation is preserved. Redemonstration of mild decrease in attenuation within periventricular white matter which is unchange d since prior study and could represent chronic small vessel ischemia. Diffuse atrophic changes of brain parenchyma are again seen and associated with ex vacuo dilatation o f ventricles which is unchanged since recent prior study. There is no acute depressed skull fractures seen. Visualized paranasal sinuses and mastoid air cells are patent and well-aerated. IMPRESSION: 1. No acute intracranial hemorrhage, no midline shift or space occupying lesions. 2. Limited study due to motion and beam hardening artifact. 3. Atrophic changes of brain parenchyma associated with ex vacuo dilatation of ventricles, stable si nce prior. 4. Chronic small vessel ischemia. ACT 112: Negative or not required by law. The above report was generated using voice recognition software. It may contain grammatical, syntax o r spelling errors. Electronically signed by: Steph Villagran DO 04/21/2021 7:35 AM
--- NOTE | 2021-04-21 08:16 | CT Scan Report ---
CT angio chest PE protocol CT DOSE: 431.96 mGy.cm HISTORY: 86 years-old Male with PE. Acute shortness of breath TECHNIQUE: Multiple CTA images of the chest were obtained after the intravenous administration of 119 ml Optiray. Coronal and sagittal MIPS were obtained from the axial data set and were submitted for review. All measurements were obtained according to NASCET criteria. A dose lowering technique was u tilized adhering to the principles of ALARA. COMPARISON: CTA chest 11/10/2016 FINDINGS: CTA: Mild cardiomegaly. No pericardial effusion. Aortic valvular prosthesis. Extensive calcifications of t he coronary arteries. Mitral annular calcifications. Atherosclerotic plaque of the thoracic aorta wit hout aneurysm or dissection. Mild descending thoracic aortic tortuosity. The pulmonary arterial tree is opacified to the level of the segmental branches and demonstrates no filling defects to suggest th romboembolic disease. The subsegmental branches are not well visualized secondary to contrast bolus t iming. CT CHEST: Unremarkable thyroid. No adenopathy. Small layering pleural effusions. No pneumothorax. Mild pleural thickening of the lung apices. 7 mm subpleural solid nodule of the right lung apex, image 226 is unch anged. Mild intralobular septal thickening. Mild dependent bibasilar consolidative opacities. 10 mm s ubpleural solid nodule of the right upper lobe on image 207 is new from 2017. 5 mm solid nodule of th e right upper lobe on image 216 was also not definitively seen on prior. Mild bronchial wall thickeni ng. Central airways appear patent. No pneumoperitoneum. There is circumferential wall thickening of the upper esophagus. Trace perisplen ic free fluid. Unremarkable soft tissues. No acute fracture. Healed chronic right-sided rib fractures . Chronic appearing T4 compression deformity. 25% superior endplate compression deformity at T6 witho ut retropulsion is unchanged. 25% superior compression deformity at T7 with 50% T8 compression deform ity, new from comparison. T11 severe compression deformity with 4 mm retropulsion is also new from co mparison. IMPRESSION: 1. No pulmonary emboli. 2. Cardiomegaly with mild pulmonary edema and small layering pleural effusions. 3. Mild dependent subsegmental bibasilar atelectasis. 4. There are a few solid nodules noted within the right upper lobe including a subpleural 10 mm solid nodule which is favored to represent scarring. A 3-6 month follow-up chest CT is recommended. 5. Age-indeterminate T7, T8 and T11 compression deformities are new from 2017. Additionally, there is 4 mm retropulsion at T11 without significant central canal stenosis. Correlate with point point tend [place]. ACT 112: Negative or not required by law. The above report was generated using voice recognition software. It may contain grammatical, syntax o r spelling errors. Electronically signed by: Deandre Ngo M.D. 04/21/2021 8:14 AM
--- NOTE | 2021-04-21 08:28 | XRay Report ---
XR chest 1V portable HISTORY: Shortness of breath. COMPARISON: Chest 03/02/2021. FINDINGS: There are low lung volumes. No pneumothorax. The heart remains enlarged. 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 A few left basilar linear densities favor subsegmental atelectasis or scar ring. Trace bilateral pleural effusions. There is mild central pulmonary vascular congestion without overt edema. No new focal lung consolidations to suggest pneumonia. IMPRESSION: Mild central pulmonary vascular congestion without overt edema. Trace bilateral pleural effusions. ACT 112: Negative or not required by law. Electronically signed by: Peña Herrera M.D. 04/21/2021 8:27 AM
[2021-04-21] MEDS ORDERED: ACETAMINOPHEN 325 MG TAB PO PRN (09:17)
[2021-04-21] MEDS ORDERED: DEXTROSE 50% 50 ML SYRINGE IV PRN (09:17)
[2021-04-21] MEDS ORDERED: LACTATED RINGER'S 1,000 ML IV SCH (09:17)
[2021-04-21] MEDS ORDERED: GLUCOSE 10 TABS/TUBE PO PRN (09:17)
[2021-04-21] MEDS ORDERED: GLUCAGON FOR INJ 1 MG VIAL SQ PRN (09:17)
[2021-04-21] MEDS ORDERED: bisacodyL 10 MG SUPP PR PRN (09:17)
[2021-04-21] MEDS ORDERED: CARBOHYDRATES FOR HYPOGLYCEMIA PO PRN (09:17)
[2021-04-21] MEDS ORDERED: GLUCOSE 40% GEL 15 GM TUBE PO PRN (09:17)
[2021-04-21] MEDS ORDERED: MAGNESIUM HYDROXIDE SUSP 30 ML UDC PO PRN (09:17)
[2021-04-21] MEDS: ROSUVASTATIN CALCIUM 20 MG TAB PO SCH (10:47)
[2021-04-21] MEDS: LEVOTHYROXINE SODIUM 100 MCG TABLET PO SCH (10:47)
[2021-04-21] MEDS: FAMOTIDINE 40 MG TABLET PO SCH (10:47)
[2021-04-21] MEDS: MAGNESIUM OXIDE 400 MG TAB PO SCH ×2 (10:47→21:49)
[2021-04-21] MEDS: CLOPIDOGREL BISULFATE 75 MG TAB PO SCH (10:48)
[2021-04-21] MEDS: DOCUSATE SODIUM/SENNA 50/8.6MG TAB PO SCH (10:48)
[2021-04-21] MEDS: FUROSEMIDE 20 MG TAB PO SCH (10:48)
[2021-04-21] MEDS: DOCUSATE SODIUM 100 MG CAP PO SCH ×2 (10:48→21:49)
[2021-04-21] MEDS: ENOXAPARIN INJ 40 MG/0.4 ML SYR SQ SCH (10:49)
[2021-04-21] MEDS: dilTIAZem HCL 240 MG CAPCR PO SCH (10:49)
[2021-04-21] MEDS: INSULIN GLARGINE SOLOSTAR 100 UNITS/ML 3 ML PEN SC SCH ×2 (10:59→21:49)
[2021-04-21] MEDS: INSULIN ASPART 100 UNITS/ML 3 ML PEN SC SCH ×4 (11:02→21:49)
--- NOTE | 2021-04-21 17:20 | Communication Note ---
Date of Service: April 21, 2021 Patient was seen and examined but admitted the same day therefore I will not be billing for this encounter. Discussed history with his at bedside. She r eports decline over the last 7 days with increased confusion, lethargy and slurred speech leading up to sudden hypoxic episode yesterday. Confirms risk feeding patient as he lost a lot of weight on thickened liquid diet. Given general decline and possible UTI will elect to treat this with ceftriaxone at present time. Given motion artifact with CT head unlikely benefit from MRI brain to completely rule out CVA and limited change in management. If no improvement with antibiotics may need palliative care consult. Recently started citalopram and even though at small dose this may be contributing towards insomnia therefore will discontinue.
[2021-04-21] MEDS: cefTRIAXone SODIUM 2,000 MG in DEXTROSE 5% 50 ML IV SCH (17:42)
[2021-04-21] MEDS ORDERED: CITALOPRAM 20 MG TAB PO SCH (21:00)
[2021-04-21] MEDS: TAMSULOSIN HCL 0.4 MG CAP PO SCH (21:49)
[2021-04-22] MEDS: LEVOTHYROXINE SODIUM 100 MCG TABLET PO SCH (05:50)
--- NOTE | 2021-04-22 05:52 | Electrocardiogram Report ---
Test Reason : Blood Pressure : / mmHG Vent. Rate : 087 BPM Atrial Rate : 087 BPM P-R Int : 164 ms QRS Dur : 080 ms QT Int : 354 ms P-R-T Axes : 043 005 022 degrees QTc Int : 425 ms Normal sinus rhythm Possible Left atrial enlargement Septal infarct , age undetermined Abnormal ECG When compared with ECG of 25-FEB-2021 10:37, Premature supraventricular complexes are no longer Present Septal infarct is now Present Nonspecific T wave abnormality now evident in Inferior leads Confirmed by Heron Cifuentes ([id number]) on 04/22/2021 5:52:11 AM Referred By: [facility] Confirmed By:Heron Cifuentes
[2021-04-22 08:15] LABS: Basophils # (auto) 0.01 K/uL (0-0.2); Basophils % (auto) 0.2 %; Eosinophils # (auto) 0.23 K/uL (0-0.5); Hematocrit (blood only) 30.4 % (42-52); Hemoglobin 10.3 g/dL (14.0-18.0); Immature Granulocytes # (auto) 0.03 K/uL (0.00-0.02); Immature Granulocytes % (auto) 0.5 %; Lymphocytes % (auto) 8.7 %; Mean Corpuscular Hemoglobin 32.7 pg (25-34); Mean Corpuscular Hgb Conc 33.9 g/dL (32-36); Mean Corpuscular Volume 96.5 fL (80-100); Monocytes # (auto) 0.66 K/uL (0.11-0.59); Monocytes % (auto) 11.5 %; Neutrophils # (auto) 4.29 K/uL (1.4-6.5); Neutrophils % (auto) 75.1 %; Platelet Count 153 K/uL (130-400); RDW Coefficient of Variation 14.9 % (11.5-14.5); RDW Standard Deviation 52.5 fL (36.4-46.3); Red Blood Count 3.15 M/uL (4.7-6.1); White Blood Count 5.72 K/uL (4.8-10.8)
[2021-04-22] MEDS: DOCUSATE SODIUM 100 MG CAP PO SCH ×2 (08:34→20:29)
[2021-04-22] MEDS: ROSUVASTATIN CALCIUM 20 MG TAB PO SCH (08:34)
[2021-04-22] MEDS: FUROSEMIDE 20 MG TAB PO SCH (08:34)
[2021-04-22] MEDS: FAMOTIDINE 40 MG TABLET PO SCH (08:34)
[2021-04-22] MEDS: DOCUSATE SODIUM/SENNA 50/8.6MG TAB PO SCH (08:34)
[2021-04-22] MEDS: MAGNESIUM OXIDE 400 MG TAB PO SCH ×2 (08:35→20:29)
[2021-04-22] MEDS: ENOXAPARIN INJ 40 MG/0.4 ML SYR SQ SCH (08:36)
[2021-04-22] MEDS: CLOPIDOGREL BISULFATE 75 MG TAB PO SCH (08:36)
[2021-04-22] MEDS: dilTIAZem HCL 240 MG CAPCR PO SCH (08:36)
[2021-04-22 08:39] LABS: Albumin Level 2.2 gm/dl (3.4-5.0); BUN Creatinine Ratio 24.3 (10-20); Bilirubin Direct 0.2 mg/dl (0-0.2); Calcium 7.9 mg/dl (8.5-10.1); Creatinine Clr Calc Pharmacy 89.6 ml/min; Est GFR (Non-African American) 89.8 ml/min; Potassium 3.4 mmol/L (3.5-5.1)
[2021-04-22] MEDS: INSULIN GLARGINE SOLOSTAR 100 UNITS/ML 3 ML PEN SC SCH (08:44)
[2021-04-22] MEDS: INSULIN ASPART 100 UNITS/ML 3 ML PEN SC SCH ×4 (08:46→20:29)
[2021-04-22 08:50] LABS: Bilirubin,Total 0.5 mg/dl (0.2-1); Thyroid Stimulating Hormone 8.96 uIu/ml (0.300-4.500); Total Protein 4.8 gm/dl (6.4-8.2)
--- NOTE | 2021-04-22 12:48 | Hospitalist Progress Note ---
Date of Service April 22, 2021 Assessment & Plan (1) Altered mental status: Suspect infection related given improvement with IV ceftriaxone started yesterday for suspected UTI. However given GPC growing in urine culture will get blood cultures. Continue on IV ceftriaxone for now pending further identification of cultures as non-septic, WBC normal and improving. ?source left heel unstageable ulcer although would expect procalcitonin to be elevated if this is the case, no surrounding cellulitis. TSH elevated but unlikely cause of his acute altered mental state. (2) Unstageable pressure ulcer of heel: Appreciate wound care management. No surrounding cellulitis. XR to assess for osteomyelitis. If blood cultures are positive will need surgical review of this. (3) Hypoxia: Suspect secondary to aspiration in setting of altered mental state given quick resolution Continue to monitor respiratory status Aim O2 sats > 90%, similar to prior discharge Aspiration precautions Known silent aspirations but risk feeding due to poor nutritional status on thickened fluids (4) Diabetes: Chronic. Well-controlled. Last A1c = 7.4 Hold oral agents, pioglitazone and Metformin Lantus 7 units (reduce to daily due to hypoglycemia this morning) with insulin sliding scale (no carb coverage) (5) Atrial flutter: Presently in regular rate and rhythm Continue diltiazem 240 mg daily (6) Hypothyroid: Chronic. TSH 8.96, repeat 4-6 weeks Continue Synthroid 100 mcg daily (7) Hypertension: Blood pressure mildly elevated on arrival at 163/84 Continue diltiazem as above Continue to monitor (8) Esophageal thickening: ?suspect aspiration -Pepcid 40mg po daily -Given poor respiratory status and likely etiology of chronic aspirations; deferring EGD at current time (9) Stroke: Prior left frontal CVA in February status post carotid endarterectomy Continue Crestor 20 mg p.o. every morning Continue Plavix 75 mg p.o. every morning (10) DVT prophylaxis: ProphylaxisLovenox 40mg SQ daily F/E/Ncontinue bowel regimen Codefull. Dispoobservation to medical Admission and Anticipated Discharge Date Admission Date: April 21, 2021 Subjective Able to tell me the year but no further recognition of date. Much more alert than yesterday. Eating well without any choking or coughing. No pain, shortness of breath. Unknown if at baseline but improved from past 2 days. No fever or chills. No acute events overnight. Requiring 2 L of oxygen. Review of Systems Review of Systems: All systems reviewed & are unremarkable except as noted in HPI & below Physical Exam Constitutional: well developed; + not well nourished and no acute distress Eyes: + anicteric sclerae; normal pupil size Respiratory: normal respiratory effort; no respiratory distress Auscultation: + rales (bilateral); no wheezes Cardiovascular: Rate/Rhythm: regular rate and regular rhythm Heart Sounds: + murmur (3/6) Extremities: normal capillary refill and + pedal edema (3+ b/l LE edema) Gastrointestinal (Abdomen): normal bowel sounds, soft, nontender, no hepatosplenomegaly Skin: + ulcer (unstageable left heel, without surrounding cellulitis) Neurologic: moves all extremities, + focal motor deficit (Generalized R > L sided weakness), awake and + confused Psychiatric: Orientation: alert, oriented to person (self), oriented to place (aware he is in hospital) and oriented to time (year only) Results & Data Results & Data ([facility]) Vital Signs (Past 12 Hours) Vital Signs Temp Pulse Resp BP Pulse Ox 04/22/21 07:45 37.0 C 82 16 139/63 92 04/22/21 07:05 36.7 C 73 18 129/65 95 PG Care Time/CCT Total # of Minutes Spent Total Time Spent with Patient: Total time spent is greater than 50% in coordination of care (as documented) at patient's floor/unit and/or counseling patient: Coding Level of Care Code 87704 Subseq Obs Care Lvl 2 Diagnoses Altered mental status R41.82 Altered mental status type: unspecified Unstageable pressure ulcer of heel L89.600 Hypoxia R09.02 Diabetes E11.59 Diabetes mellitus complication detail: with other circulatory complications Diabetes mellitus complication status: with circulatory complication Diabetes mellitus iron installer insulin use: without iron installer use Diabetes mellitus type: type 2 Atrial flutter I48.92 Atrial flutter type: unspecified Hypothyroid E03.9 Hypothyroidism type: unspecified Hypertension I10 Hypertension type: essential hypertension Esophageal thickening K22.8 Stroke I63.9 CVA mechanism: unspecified DVT prophylaxis Z29.9 (1) Diabetes Diabetes mellitus complication detail: with other circulatory complications Diabetes mellitus complication status: with circulatory complication Diabetes mellitus half-way insulin use: without iron installer use Diabetes mellitus type: type 2 Qualified Code(s): E11.59 - Type 2 diabetes mellitus with other circulatory complications (2) Atrial flutter Atrial flutter type: unspecified Qualified Code(s): I48.92 - Unspecified atrial flutter (3) Hypothyroid Hypothyroidism type: unspecified Qualified Code(s): E03.9 - Hypothyroidism, unspecified (4) Altered mental status Altered mental status type: unspecified Qualified Code(s): R41.82 - Altered mental status, unspecified (5) Hypertension Hypertension type: essential hypertension Qualified Code(s): I10 - Essential (primary) hypertension (6) Stroke CVA mechanism: unspecified Qualified Code(s): I63.9 - Cerebral infarction, unspecified
[2021-04-22] MEDS ORDERED: POTASSIUM CHLORIDE CRTAB 20 MEQ TABCR PO STA (16:28)
[2021-04-22] MEDS: cefTRIAXone SODIUM 2,000 MG in DEXTROSE 5% 50 ML IV SCH (17:06)
--- NOTE | 2021-04-22 17:29 | XRay Report ---
XR ankle LT min 3V routine CLINICAL HISTORY: unstageable ulcer ?osteomyelitis. Left heel ulcer. COMPARISON STUDY: None. FINDINGS: No acute fracture or dislocation within the left ankle. Vascular calcification is are noted . Deformity within the medial malleolus likely due to an old, healed fracture. Mild degenerative silverio ges at the tibiotalar joint. Diffuse soft tissue swelling within the left lower leg, ankle, and hindf oot. There is a plantar heel spur. Suspect a soft tissue ulceration at the posterior heel. No underly ing bony destruction to suggest an osteomyelitis. IMPRESSION: Soft tissue ulcer at the posterior heel. No underlying bony destruction to suggest an os teomyelitis. ACT 112: Negative or not required by law. Electronically signed by: Peña Herrera M.D. 04/22/2021 5:28 PM
[2021-04-22] MEDS: TAMSULOSIN HCL 0.4 MG CAP PO SCH (20:30)
[2021-04-23] MEDS: LEVOTHYROXINE SODIUM 100 MCG TABLET PO SCH (06:27)
[2021-04-23] MEDS: CLOPIDOGREL BISULFATE 75 MG TAB PO SCH (08:24)
[2021-04-23] MEDS: FUROSEMIDE 20 MG TAB PO SCH (08:24)
[2021-04-23] MEDS: DOCUSATE SODIUM 100 MG CAP PO SCH ×2 (08:24→20:52)
[2021-04-23] MEDS: dilTIAZem HCL 240 MG CAPCR PO SCH (08:24)
[2021-04-23] MEDS: ROSUVASTATIN CALCIUM 20 MG TAB PO SCH (08:25)
[2021-04-23] MEDS: ENOXAPARIN INJ 40 MG/0.4 ML SYR SQ SCH (08:25)
[2021-04-23] MEDS: DOCUSATE SODIUM/SENNA 50/8.6MG TAB PO SCH (08:25)
[2021-04-23] MEDS: FAMOTIDINE 40 MG TABLET PO SCH (08:25)
[2021-04-23] MEDS: INSULIN GLARGINE SOLOSTAR 100 UNITS/ML 3 ML PEN SC SCH (08:27)
[2021-04-23] MEDS: INSULIN ASPART 100 UNITS/ML 3 ML PEN SC SCH ×4 (08:29→20:52)
[2021-04-23] MEDS ORDERED: FUROSEMIDE 40 MG in SYRINGE 0 ML IV ONE (13:00)
[2021-04-23 13:35] LABS: BUN Creatinine Ratio 20.2 (10-20); Calcium 8.3 mg/dl (8.5-10.1); Creatinine Clr Calc Pharmacy 57.2 ml/min; Est GFR (African American) 83.6 ml/min; Est GFR (Non-African American) 72.1 ml/min; Potassium 4.3 mmol/L (3.5-5.1)
[2021-04-23] MEDS ORDERED: GADOBUTROL 65ML VIAL IV ONE (14:25)
--- NOTE | 2021-04-23 14:52 | Magnetic Resonance Report ---
MR ankle LT wo/w con HISTORY: 86 years-old Male unstageable heel ulcer ?osteomyelitis chronic soft tissue wound of the hi ndfoot. Clinical concern for osteomyelitis. COMPARISON: Left ankle radiographs 04/22/2021 TECHNIQUE: Multiplanar multisequence MRI of the left ankle was obtained both with and without the use of 8.0 mL Gadavist. FINDINGS: Motion degraded exam. Extensive subcutaneous edema of the lower leg, foot and ankle, most pronounced within the dorsal forefoot. Mild subtalar, tibiotalar and midfoot osteoarthritis. Subcortical cystic changes involve the mid calcaneus with suggestion of a postsurgical linear tract measuring up to 2.5 cm in length. There is a soft tissue wound/ulcer of the posterior heel. No drainable fluid collection . There is a 2.0 cm area of subcortical and periosteal edema involving the posterolateral calcaneus w ith mild cortical indistinctness best seen on image 33 of series 11 and 12 and also image 19 of serie s 8. Mild associated enhancement. Bone marrow signal is otherwise within normal limits. Tendinosis of the peroneal, tibialis anterior and posterior tendons. Mild multifocal tenosynovitis. D iffuse muscular atrophy with intramuscular edema suggestive of chronic denervation changes. IMPRESSION: 1. Soft tissue ulcer of the posterior heel. No abscess. 2. Subtle bone marrow changes of the adjacent posterolateral calcaneus are suspicious for developing osteomyelitis. 3. Extensive subcutaneous edema suggestive of cellulitis, venous stasis or lymphedema. 4. Chronic denervation changes. ACT 112: Negative or not required by law. The above report was generated using voice recognition software. It may contain grammatical, syntax o r spelling errors. Electronically signed by: Deandre Ngo M.D. 04/23/2021 2:50 PM
--- NOTE | 2021-04-23 15:58 | Hospitalist Progress Note ---
Date of Service April 23, 2021 Assessment & Plan (1) Altered mental status: Suspect infection related given improvement with IV ceftriaxone started 04/21 for suspected UTI. Blood cultures taken after antibiotics started due to GPC growing in urine culture. No specific urinary symptoms other than altered mental state. Continue on IV ceftriaxone for now pending further identification of cultures as patient non-septic, WBC normal and improving. XR left ankle shows no osteomyelitis, will get MRI for better assessment of fluid collection and to rule out osteomyelitis as source especially given acute left leg swelling TSH elevated but unlikely cause of his acute altered mental state. (2) UTI (urinary tract infection): Possible (see above) (3) Unstageable pressure ulcer of heel: Appreciate wound care management. No surrounding cellulitis. XR to assess for osteomyelitis. If blood cultures are positive will need surgical review of this. (4) Bilateral leg edema: Right leg swelling chronic lymphedema but worse than usual, left leg swelling significantly worse than usual Suspect due to infection and underlying lymphedema Will trial lasix 40mg IV today and watch Cr tomorrow to see if any can be taken off with diuretics, however no significant pulmonary edema on CT to suggest CHF. Continue with right leg wraps. (5) Hypoxia: Suspect secondary to aspiration in setting of altered mental state given quick resolution Continue to monitor respiratory status Aim O2 sats > 90%, similar to prior discharge Aspiration precautions Known silent aspirations but risk feeding due to poor nutritional status on thickened fluids (6) Diabetes: Chronic. Well-controlled. Last A1c = 7.4 Hold oral agents, pioglitazone and Metformin Lantus 7 units (reduce to daily due to hypoglycemia this morning) with insulin sliding scale (no carb coverage) (7) Atrial flutter: Presently in regular rate and rhythm Continue diltiazem 240 mg daily (8) Hypothyroid: Chronic. TSH 8.96, repeat 4-6 weeks Continue Synthroid 100 mcg daily (9) Hypertension: Blood pressure mildly elevated on arrival at 163/84 Continue diltiazem as above Continue to monitor (10) Esophageal thickening: ?suspect aspiration -Pepcid 40mg po daily -Given poor respiratory status and likely etiology of chronic aspirations; deferring EGD at current time (11) Stroke: Prior left frontal CVA in February status post carotid endarterectomy Continue Crestor 20 mg p.o. every morning Continue Plavix 75 mg p.o. every morning (12) DVT prophylaxis: ProphylaxisLovenox 40mg SQ daily F/E/Ncontinue bowel regimen Codefull. Disposwitch to full admission on medical Admission and Anticipated Discharge Date Admission Date: April 21, 2021 Subjective Much more alert and orientated today. No fever or chills. Back to his baseline. Reports left leg swelling unusual for him and feels this is relatively acute. Unknown date of ulcer on left heel on discussion with his but was not present on last admission here. He has been at [facility] since his discharge in February therefore developed at some point then. Reports am bulation is getting better since his stroke and left sided weakness. Review of Systems Review of Systems: All systems reviewed & are unremarkable except as noted in HPI & below Physical Exam Constitutional: well developed; + not well nourished and no acute distress Eyes: + anicteric sclerae; normal pupil size Respiratory: normal respiratory effort; no respiratory distress Auscultation: + rales (bilateral); no wheezes Cardiovascular: Rate/Rhythm: regular rate and regular rhythm Heart Sounds: + murmur (3/6) Extremities: normal capillary refill and + pedal edema (3+ b/l LE edema) Gastrointestinal (Abdomen): normal bowel sounds, soft, nontender, no hepatosplenomegaly Skin: + ulcer (unstageable left heel, without surrounding cellulitis) Neurologic: moves all extremities, + focal motor deficit (Generalized R > L sided weakness), awake and + confused Psychiatric: Orientation: alert, oriented to person (self), oriented to place (aware he is in hospital) and oriented to time (year only) Results & Data Results & Data ([facility]) Vital Signs (Past 12 Hours) Vital Signs Temp Pulse Resp BP Pulse Ox 04/23/21 15:41 36.5 C 67 20 135/75 93 04/23/21 15:12 93 04/23/21 08:14 37.0 C 80 18 158/95 H 96 PG Care Time/CCT Total # of Minutes Spent Total Time Spent with Patient: Total time spent is greater than 50% in coordination of care (as documented) at patient's floor/unit and/or counseling patient: Coding Level of Care Code 34730 Subseq Hosp Care Lvl 2 Diagnoses Altered mental status R41.82 Altered mental status type: unspecified UTI (urinary tract infection) N39.0 Unstageable pressure ulcer of heel L89.600 Bilateral leg edema R60.0 Hypoxia R09.02 Diabetes E11.59 Diabetes mellitus complication detail: with other circulatory complications Diabetes mellitus complication status: with circulatory complication Diabetes mellitus senior living insulin use: without senior living use Diabetes mellitus type: type 2 Atrial flutter I48.92 Atrial flutter type: unspecified Hypothyroid E03.9 Hypothyroidism type: unspecified Hypertension I10 Hypertension type: essential hypertension Esophageal thickening K22.8 Stroke I63.9 CVA mechanism: unspecified DVT prophylaxis Z29.9 (1) Diabetes Diabetes mellitus complication detail: with other circulatory complications Diabetes mellitus complication status: with circulatory complication Diabetes mellitus intermediate card tender insulin use: without intermediate card tender use Diabetes mellitus type: type 2 Qualified Code(s): E11.59 - Type 2 diabetes mellitus with other circulatory complications (2) Atrial flutter Atrial flutter type: unspecified Qualified Code(s): I48.92 - Unspecified atrial flutter (3) Hypothyroid Hypothyroidism type: unspecified Qualified Code(s): E03.9 - Hypothyroidism, unspecified (4) Altered mental status Altered mental status type: unspecified Qualified Code(s): R41.82 - Altered mental status, unspecified (5) Hypertension Hypertension type: essential hypertension Qualified Code(s): I10 - Essential (primary) hypertension (6) Stroke CVA mechanism: unspecified Qualified Code(s): I63.9 - Cerebral infarction, unspecified
[2021-04-23] MEDS: cefTRIAXone SODIUM 2,000 MG in DEXTROSE 5% 50 ML IV SCH (18:07)
--- NOTE | 2021-04-23 19:59 | Ultrasound Report ---
ULTRASOUND US arterial duplex LE LT CLINICAL HISTORY: Unstageable heel ulcer ?peripheral artery disease COMPARISON STUDY: None FINDINGS: Real-time as well as Doppler evaluation of the arterial structures of the lower legs was p erformed. Prominent atherosclerotic plaques are seen throughout left lower extremity arteries and shows increas ed velocity within distal aspect of the superficial femoral artery and posterior tibialis artery katya uring 120 cm/s and 162 cm/s mild consistent with stenosis. No evidence of focal occlusion is seen. Evaluation of blood pressure was not performed due to uncooperative patient and wound dressing. IMPRESSION: 1. There is stenosis within distal aspect of the superficial femoral artery and posterior tibialis a rtery with velocities as detailed above. No evidence of focal occlusion. Electronically signed by: Steph Villagran DO 04/23/2021 7:58 PM
[2021-04-23] MEDS: TAMSULOSIN HCL 0.4 MG CAP PO SCH (20:51)
[2021-04-24] MEDS: LEVOTHYROXINE SODIUM 100 MCG TABLET PO SCH (06:18)
[2021-04-24 07:30] LABS: Eosinophils # (auto) 0.21 K/uL (0-0.5); Hematocrit (blood only) 30.8 % (42-52); Hemoglobin 10.5 g/dL (14.0-18.0); Immature Granulocytes # (auto) 0.02 K/uL (0.00-0.02); Immature Granulocytes % (auto) 0.3 %; Lymphocytes # (auto) 0.78 K/uL (1.2-3.4); Lymphocytes % (auto) 11.1 %; Mean Corpuscular Hemoglobin 32.5 pg (25-34); Mean Corpuscular Hgb Conc 34.1 g/dL (32-36); Mean Corpuscular Volume 95.4 fL (80-100); Mean Platelet Volume 8.7 fL (7.4-10.4); Monocytes # (auto) 0.96 K/uL (0.11-0.59); Monocytes % (auto) 13.7 %; Neutrophils # (auto) 5.03 K/uL (1.4-6.5); Neutrophils % (auto) 71.9 %; Platelet Count 159 K/uL (130-400); RDW Coefficient of Variation 14.7 % (11.5-14.5); RDW Standard Deviation 51.2 fL (36.4-46.3); Red Blood Count 3.23 M/uL (4.7-6.1)
[2021-04-24 08:05] LABS: BUN Creatinine Ratio 19.9 (10-20); C Reactive Protein 3.41 mg/dl (0-0.29); Calcium 7.8 mg/dl (8.5-10.1); Est GFR (African American) 98.8 ml/min; Est GFR (Non-African American) 85.3 ml/min; Potassium 3.9 mmol/L (3.5-5.1)
[2021-04-24] MEDS: INSULIN ASPART 100 UNITS/ML 3 ML PEN SC SCH ×4 (08:45→21:11)
--- NOTE | 2021-04-24 09:25 | Ultrasound Report ---
BILATERAL LOWER EXTREMITY VENOUS DOPPLER HISTORY: Bilateral leg pain. COMPARISON STUDY: None. FINDINGS: There is normal compressibility, flow, and augmentation within the bilateral lower extremit y deep venous systems. IMPRESSION: No DVT within the right or left lower extremity. ACT 112: Negative or not required by law. Electronically signed by: Peña Herrera M.D. 04/24/2021 9:24 AM
[2021-04-24] MEDS: ENOXAPARIN INJ 40 MG/0.4 ML SYR SQ SCH (09:26)
[2021-04-24] MEDS: CLOPIDOGREL BISULFATE 75 MG TAB PO SCH (09:27)
[2021-04-24] MEDS: ROSUVASTATIN CALCIUM 20 MG TAB PO SCH (09:27)
[2021-04-24] MEDS: FAMOTIDINE 40 MG TABLET PO SCH (09:27)
[2021-04-24] MEDS: INSULIN GLARGINE SOLOSTAR 100 UNITS/ML 3 ML PEN SC SCH (09:27)
[2021-04-24] MEDS: DOCUSATE SODIUM/SENNA 50/8.6MG TAB PO SCH (09:27)
[2021-04-24] MEDS: DOCUSATE SODIUM 100 MG CAP PO SCH ×2 (09:27→21:12)
[2021-04-24] MEDS: dilTIAZem HCL 240 MG CAPCR PO SCH (09:27)
[2021-04-24] MEDS: FUROSEMIDE 20 MG TAB PO SCH (09:27)
--- NOTE | 2021-04-24 10:42 | Consultation ---
Date of Consultation April 24, 2021 Assessment & Plan (1) Peripheral arterial disease: Pt with significant PAD on US and L heel ulceration with possible early osteomyelitis. Pt discussed with Dr Leon, recommends pt undergo LLE angio in OR on Tuesday. Pt agreeable. Will discuss with as well. Also recommend orthopedic surgical consult for the heel wound. History of Present Illness Reason for Consultation: PAD Attending Physician: Michael Zuñiga MD History of Present Illness 86yo m with hx of HTN, mild dementia, BPH, carotid stenosis s/p R CEA in 03/06, hypothyroidism, spinal stenosis, heart failure, admitted with L heel ulcer, seen in consultation today for PAD. Pt known to Dr Leon for carotid stenosis and R CEA in 03/06. Pt admits pain in L heel. Denies rest pain, claudication, fever, chest pain, SOB, abd pain,N/V, other complaints. Arterial US demonstrates significant PAD, with monophasic flow distally. Allergies Allergy/AdvReac Type Severity Reaction Status Date / Time metoprolol AdvReac Mild GI SYMPTOMS Verified 04/21/21 01:14 Home Medications Medication Instructions Recorded Confirmed Type cholecalciferol (vitamin D3) 1,000 unit PO QAM 05/30/19 04/21/21 History [Vitamin D3] tamsulosin 0.4 mg PO QPM 05/30/19 04/21/21 History levothyroxine 100 mcg tablet 100 mcg PO DAILY 02/16/21 04/21/21 History clopidogrel 75 mg PO QAM #0 tab 03/03/21 04/21/21 Rx docusate sodium 100 mg PO BID #60 cap 03/03/21 04/21/21 Rx rosuvastatin [Crestor] 20 mg PO QAM #30 tab 03/03/21 04/21/21 Rx acetaminophen [Tylenol] 650 mg PO Q6 PRN 04/21/21 04/21/21 History bisacodyl [Dulcolax (bisacodyl)] 10 mg [place] UD PRN 04/21/21 04/21/21 History citalopram [Celexa] 5 mg PO HS 04/21/21 04/21/21 History diltiazem HCl 240 mg PO DAILY 04/21/21 04/21/21 History furosemide [Lasix] 20 mg PO DAILY 04/21/21 04/21/21 History magnesium hydroxide [Milk of 30 ml PO UD PRN 04/21/21 04/21/21 History Magnesia] metformin 1,000 mg PO BID 04/21/21 04/21/21 History pioglitazone 30 mg PO DAILY 04/21/21 04/21/21 History sennosides-docusate sodium [Senna 3 tab-cap PO DAILY 04/21/21 04/21/21 History Plus] Patient History Medical History Anemia Atrial flutter BPH (benign prostatic hyperplasia) Carotid stenosis Cellulitis Chronic kidney disease Diabetes History of aortic stenosis s/p avr Hyperlipidemia Hypertension Hypothyroid Squamous cell carcinoma Multiple Surgical History S/P AVR (aortic valve replacement) Bioprosthetic (25 mm Buenrostro 2 porcine valve) October 2016 Family History Uncle Parkinson disease Brother Parkinson disease Other Family history non-contributory Social History Smoking Status: Former smoker Second Hand Exposure: No; Do You Dip or Chew Tobacco: No; Tobacco Cessation Education Requested by Patient: No Hx Alcohol Use: No Hx Substance Use: No Preferred Language: Venezuelan Communication Ability: Impaired Service Parts Coordinator Required: No Beliefs That Will Affect Care: None Current Living Situation: Other Current Living Situation Comment: home alone with spouse. Feels Safe at Home: Yes Safety Concerns: Feels Safe At This Time Assistive Devices: Walker Review of Systems Review of Systems: All systems reviewed & are unremarkable except as noted in HPI & below Physical Exam Constitutional: WD/WN, vitals as above cooperative; not in distress Neck: trachea midline (R neck incision well healed.) Respiratory: normal respiratory effort, lungs clear to auscultation Auscultation: + diminished lung sounds Cardiovascular: Rate/Rhythm: + irregularly irregular Vessels: femoral pulses present, posterior tibial pulses present (nonpalpable LLE), dorsalis pedis pulses present (nonpalapble LLE) and radial pulses present; + abnormal peripheral pulses Extremities: normal capillary refill and + edema Gastrointestinal (Abdomen): normal bowel sounds, soft, nontender, no hepatosplenomegaly Musculoskeletal: no cyanosis or clubbing, extremities motor strength 5/5 Skin: + eschar (L heel, with demarcation) Neurologic: moves all extremities, awake and + confused (mildly, pleasant) Psychiatric: Orientation: alert, oriented to person and oriented to place Results & Data ([facility]) Vital Signs (Past 12 Hours) Vital Signs Temp Pulse Resp BP Pulse Ox 04/24/21 07:11 37.1 C 67 20 163/71 H 96 04/23/21 23:10 36.8 C 74 20 130/68 94
--- NOTE | 2021-04-24 13:24 | Hospitalist Progress Note ---
Date of Service April 24, 2021 Assessment & Plan (1) Altered mental status: Now resolved Suspect infection related given significant improvement with IV ceftriaxone started 04/21 for suspected UTI. Blood cultures taken after antibiotics started due to GPC growing in urine culture. Now urine culture growing gamma strep, not enterococcus. No specific urinary symptoms other than altered mental state. No CVA tenderness. MRI left ankle - possible osteomyelitis, procalcitonin negative. Will get ort hopedic consult. TSH mildly elevated but unlikely cause of his acute altered mental state. (2) Peripheral arterial disease: Noted on Continue clopidogrel and rosuvastatin Appreciate vascular surgery consult - planning on angiogram next week (3) Osteomyelitis of ankle: Possible diagnosis per MRI Consult orthopedics Consult ID (4) Unstageable pressure ulcer of heel: Appreciate wound care management. No surrounding cellulitis. MRI suggestive of early osteomyelitis Blood culture negative @ 24 hours (5) UTI (urinary tract infection): Possible (see above) (6) Bilateral leg edema: Renal function improved with IV lasix yesterday suggesting overall hypervolemia rather than just his chronic lymphedema. Suspect heel infection causing worsened swelling of left side. Low Na diet, will not fluid restrict at the present time Continue daily I&Os Daily weights US venous doppler negative for DVT (7) Acute heart failure with preserved ejection fraction: See above (8) Hypoxia: Suspect secondary to aspiration in setting of altered mental state given quick resolution on admission Continue to monitor respiratory status Aim O2 sats > 90%, similar to prior discharge Aspiration precautions Known silent aspirations but risk feeding due to poor nutritional status on thickened fluids (9) Diabetes: Chronic. Well-controlled. Last A1c = 7.4 Hold oral agents, pioglitazone and Metformin Consult glycemic control given current poor control (10) Atrial flutter: Postoperative atrial flutter and atrial fibrillation with no documented recurrence on an event recorder, May,. Given peripheral artery disease will place on monitor to assess for recurrence Continue diltiazem 240 mg daily (11) Hypothyroid: Chronic. 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 every morning Continue Plavix 75 mg p.o. every morning (15) DVT prophylaxis: ProphylaxisLovenox 40mg SQ daily F/E/Ncontinue bowel regimen Codefull. DispoTransfer to med/tele due to need for cardiac catheterization technician Admission and Anticipated Discharge Date Admission Date: April 23, 2021 Subjective Patient is alert and orientated to person, place and year. Mild pain in left heel. No shortness of breath, chest pain, fever or chills. No urinary symptoms or flank pain. Review of Systems Review of Systems: All systems reviewed & are unremarkable except as noted in HPI & below Physical Exam Constitutional: well developed; + not well nourished and no acute distress Eyes: + anicteric sclerae; normal pupil size Left eyelid drooping Respiratory: normal respiratory effort; no respiratory distress Auscultation: no diminished lung sounds, no rales and no wheezes Cardiovascular: Rate/Rhythm: regular rate and regular rhythm Heart Sounds: + murmur (3/6 systolic throughout) Extremities: normal capillary refill and + pedal edema (3+ b/l LE edema, equal); no calf tenderness Gastrointestinal (Abdomen): normal bowel sounds, soft, nontender, no hepatosplenomegaly Skin: + ulcer (unstageable left heel, eschar without surrounding cellulitis) Neurologic: moves all extremities and awake; not confused Psychiatric: Orientation: alert Results & Data Results & Data ([facility]) Vital Signs (Past 12 Hours) Vital Signs Temp Pulse Resp BP Pulse Ox 04/24/21 07:11 37.1 C 67 20 163/71 H 96 PG Care Time/CCT Total # of Minutes Spent Total Time Spent with Patient: Total time spent is greater than 50% in coordination of care (as documented) at patient's floor/unit and/or counseling patient: Coding Level of Care Code 30693 Subseq Hosp Care Lvl 3 Diagnoses Altered mental status R41.82 Altered mental status type: unspecified Peripheral arterial disease I73.9 Osteomyelitis of ankle M86.172 Osteomyelitis type: other acute Laterality: left Unstageable pressure ulcer of heel L89.620 Laterality: left UTI (urinary tract infection) N39.0 Urinary tract infection type: site unspecified Hematuria presence: without hematuria Bilateral leg edema R60.0 Acute heart failure with preserved ejection fraction I50.31 Hypoxia R09.02 Diabetes E11.59 Diabetes mellitus type: type 2 Diabetes mellitus rat exterminator insulin use: without rat exterminator use Diabetes mellitus complication status: with circulatory complication Diabetes mellitus complication detail: with other circulatory complications Atrial flutter I48.92 Atrial flutter type: unspecified Hypothyroid E03.9 Hypothyroidism type: unspecified Hypertension I10 Hypertension type: essential hypertension Esophageal thickening K22.8 Stroke I63.9 CVA mechanism: unspecified DVT prophylaxis Z29.9 (1) Altered mental status Altered mental status type: unspecified Qualified Code(s): R41.82 - Altered mental status, unspecified (2) UTI (urinary tract infection) Urinary tract infection type: site unspecified Hematuria presence: without hematuria Qualified Code(s): N39.0 - Urinary tract infection, site not specified (3) Unstageable pressure ulcer of heel Laterality: left Qualified Code(s): L89.620 - Pressure ulcer of left heel, unstageable (4) Diabetes Diabetes mellitus type: type 2 Diabetes mellitus rat exterminator insulin use: without rat exterminator use Diabetes mellitus complication status: with circulatory complication Diabetes mellitus complication detail: with other circulatory complications Qualified Code(s): E11.59 - Type 2 diabetes mellitus with other circulatory complications (5) Atrial flutter Atrial flutter type: unspecified Qualified Code(s): I48.92 - Unspecified atrial flutter (6) Hypothyroid Hypothyroidism type: unspecified Qualified Code(s): E03.9 - Hypothyroidism, unspecified (7) Hypertension Hypertension type: essential hypertension Qualified Code(s): I10 - Essential (primary) hypertension (8) Stroke CVA mechanism: unspecified Qualified Code(s): I63.9 - Cerebral infarction, unspecified (9) Osteomyelitis of ankle Osteomyelitis type: other acute Laterality: left Qualified Code(s): M86.172 - Other acute osteomyelitis, left ankle and foot
[2021-04-24] MEDS ORDERED: PHARMACY GLYCEMIC MGMT CONSULT PRN (13:57)
[2021-04-24] MEDS: FUROSEMIDE 40 MG in SYRINGE 0 ML IV SCH (14:27)
--- NOTE | 2021-04-24 14:29 | Pharmacy Report ---
Pharmacy Glycemic Short Note 2 - Date of Service April 24, 2021 - Glycemic Short BSG Results (Last 24 hours): 04/23/21 04/23/21 04/24/21 18:02 20:19 07:09 Glucose 123 H POC Glucose 199 H 169 H 04/24/21 04/24/21 07:58 11:25 Glucose POC Glucose 132 H 246 H OUTPATIENT ANTIDIABETIC REGIMEN: * metformin 1000 mg PO BID * pioglitazone 30 mg PO daily * A1c = 7.4% ASSESSMENT: * 86 year old diabetic male well controlled on oral agents as an outpatient. * Oral agents held on admission. Patient was started on Lantus + Novolog. * Fasting BSG near goal. Will continue current Lantus dose for now. * Post prandial BSG elevation noted. Will tighten correction factor and add carb coverage. PLAN FOR INPATIENT GLYCEMIC CONTROL: * Hold outpatient oral diabetes medications * Basal insulin * Continue Lantus 7 units SQ qAM * Bolus insulin * NovoLog per scale ACHS or Q6hrs while NPO * Goal Range: Low 100 mg/dL - High 140 mg/dL * Correction Factor: 30 mg/dL/unit * Nutritional / Prandial insulin per carb ratio of 1 unit per 10 grams CHO consumed PLAN FOR DISCHARGE: * A1c at goal
[2021-04-24] MEDS: cefTRIAXone SODIUM 2,000 MG in DEXTROSE 5% 50 ML IV SCH (16:32)
[2021-04-24] MEDS: TAMSULOSIN HCL 0.4 MG CAP PO SCH (21:12)
[2021-04-25] MEDS: LEVOTHYROXINE SODIUM 100 MCG TABLET PO SCH (05:49)
[2021-04-25] MEDS: DOCUSATE SODIUM/SENNA 50/8.6MG TAB PO SCH (08:27)
[2021-04-25] MEDS: CLOPIDOGREL BISULFATE 75 MG TAB PO SCH (08:27)
[2021-04-25] MEDS: DOCUSATE SODIUM 100 MG CAP PO SCH ×2 (08:27→20:36)
[2021-04-25] MEDS: dilTIAZem HCL 240 MG CAPCR PO SCH (08:28)
[2021-04-25] MEDS: ROSUVASTATIN CALCIUM 20 MG TAB PO SCH (08:28)
[2021-04-25] MEDS: INSULIN ASPART 100 UNITS/ML 3 ML PEN SC SCH ×4 (08:28→20:35)
[2021-04-25] MEDS: FAMOTIDINE 40 MG TABLET PO SCH (08:28)
[2021-04-25] MEDS: FUROSEMIDE 40 MG in SYRINGE 0 ML IV SCH (08:28)
[2021-04-25] MEDS: ENOXAPARIN INJ 40 MG/0.4 ML SYR SQ SCH (08:28)
[2021-04-25 08:41] LABS: Basophils # (auto) 0.01 K/uL (0-0.2); Basophils % (auto) 0.2 %; Eosinophils # (auto) 0.16 K/uL (0-0.5); Eosinophils % (auto) 2.7 %; Hematocrit (blood only) 29.3 % (42-52); Hemoglobin 9.8 g/dL (14.0-18.0); Immature Granulocytes # (auto) 0.02 K/uL (0.00-0.02); Immature Granulocytes % (auto) 0.3 %; Lymphocytes # (auto) 0.66 K/uL (1.2-3.4); Lymphocytes % (auto) 11.3 %; Mean Corpuscular Hemoglobin 32.5 pg (25-34); Mean Corpuscular Hgb Conc 33.4 g/dL (32-36); Mean Platelet Volume 8.9 fL (7.4-10.4); Monocytes # (auto) 0.87 K/uL (0.11-0.59); Monocytes % (auto) 14.9 %; Neutrophils # (auto) 4.13 K/uL (1.4-6.5); Neutrophils % (auto) 70.6 %; Platelet Count 165 K/uL (130-400); RDW Coefficient of Variation 14.7 % (11.5-14.5); RDW Standard Deviation 52.4 fL (36.4-46.3); Red Blood Count 3.02 M/uL (4.7-6.1); White Blood Count 5.85 K/uL (4.8-10.8)
[2021-04-25 08:58] LABS: BUN Creatinine Ratio 25.1 (10-20); Calcium 7.8 mg/dl (8.5-10.1); Creatinine Clr Calc Pharmacy 77.2 ml/min; Est GFR (African American) 97.7 ml/min; Est GFR (Non-African American) 84.3 ml/min; Potassium 3.9 mmol/L (3.5-5.1)
--- NOTE | 2021-04-25 09:41 | Pharmacy Report ---
Pharmacy Glycemic Short Note 2 - Date of Service April 25, 2021 - Glycemic Short BSG Results (Last 24 hours): 04/24/21 04/24/21 04/24/21 11:25 16:23 20:58 Glucose POC Glucose 246 H 215 H 154 H 04/25/21 04/25/21 07:42 08:14 Glucose 88 POC Glucose 99 OUTPATIENT ANTIDIABETIC REGIMEN: * metformin 1000 mg PO BID * pioglitazone 30 mg PO daily * A1c = 7.4% ASSESSMENT: 04/25/21 * Patient is currently receiving an average of 22 units of insulin per day * 7 units of basal insulin * 15 units of prandial/correctional insulin * BSGs ranging 132- 246 over the past 24hrs * Risk factors for insulin resistance are constant over the past 24hrs * Anticipating insulin regimen will need decreased for the next 24hrs d/t : * AM Fasting BSG = 99 therefore Basal insulin will be stopped due to decreased fasting (132 mg/dL to 99 mg/dL). May be resumed tomorrow at lower dose depending on fasting. * Once carbohydrate ratio was added, BSGs trended downwards throughout the day. Since basal insulin removed, will tighten CF/CR slightly to provide for coverage * Total daily dose = ~15-20 units/day 04/26/21 * 86 year old diabetic male well controlled on oral agents as an outpatient. * Oral agents held on admission. Patient was started on Lantus + Novolog. * Fasting BSG near goal. Will continue current Lantus dose for now. * Post prandial BSG elevation noted. Will tighten correction factor and add carb coverage. PLAN FOR INPATIENT GLYCEMIC CONTROL: * Hold outpatient oral diabetes medications * Basal insulin * HOLD * Bolus insulin * NovoLog per scale ACHS or Q6hrs while NPO * Goal Range: Low 100 mg/dL - High 140 mg/dL * Correction Factor: 25 mg/dL/unit * Nutritional / Prandial insulin per carb ratio of 1 unit per 8 grams CHO consumed PLAN FOR DISCHARGE: * A1c at goal
--- NOTE | 2021-04-25 10:58 | Orthopedic Consultation ---
Date of Consultation April 25, 2021 Assessment & Plan (1) Pressure ulcer, heel, left, unstageable: Ulcer appears well demarcated without surrounding cellulitis, localized to the heel, no definitive osteomyelitis on x-ray or MRI, no fluid collection or abscess on MRI, questionable developing osteomyelitis, agree with angiography and intervention to aid in reperfusion of the left lower extremity. Continue with IV antibiotics. Heel precautions. Nonurgent debridement of heel ulcer can be performed after revascularization procedure. Thank you for the consultation. History of Present Illness Reason for Consultation: Left heel ulcer Attending Physician: Michael Zuñiga MD History of Present Illness The patient is an 86-year-old male with past medical history noted below who presented to [facility] secondary to altered mental status and hypoxia, subsequently found to have left heel pressure ulcer, patient reports symptoms greater than 3 weeks however the patient is unsure. Has history of right foot MSSA infections and ulcers which required surgical intervention in 2016. Patient was seen by vascular surgery plan for angiography with intervention on 04/28/2021. Patient denies any fevers, chills, nausea, vomiting, shortness of breath or chest pain. Allergies Allergy/AdvReac Type Severity Reaction Status Date / Time metoprolol AdvReac Mild GI SYMPTOMS Verified 04/21/21 01:14 Home Medications Medication Instructions Recorded Confirmed Type cholecalciferol (vitamin D3) 1,000 unit PO QAM 05/30/19 04/21/21 History [Vitamin D3] tamsulosin 0.4 mg PO QPM 05/30/19 04/21/21 History levothyroxine 100 mcg tablet 100 mcg PO DAILY 02/16/21 04/21/21 History clopidogrel 75 mg PO QAM #0 tab 03/03/21 04/21/21 Rx docusate sodium 100 mg PO BID #60 cap 03/03/21 04/21/21 Rx rosuvastatin [Crestor] 20 mg PO QAM #30 tab 03/03/21 04/21/21 Rx acetaminophen [Tylenol] 650 mg PO Q6 PRN 04/21/21 04/21/21 History bisacodyl [Dulcolax (bisacodyl)] 10 mg [place] UD PRN 04/21/21 04/21/21 History citalopram [Celexa] 5 mg PO HS 04/21/21 04/21/21 History diltiazem HCl 240 mg PO DAILY 04/21/21 04/21/21 History furosemide [Lasix] 20 mg PO DAILY 04/21/21 04/21/21 History magnesium hydroxide [Milk of 30 ml PO UD PRN 04/21/21 04/21/21 History Magnesia] metformin 1,000 mg PO BID 04/21/21 04/21/21 History pioglitazone 30 mg PO DAILY 04/21/21 04/21/21 History sennosides-docusate sodium [Senna 3 tab-cap PO DAILY 04/21/21 04/21/21 History Plus] Patient History Medical History (Updated 04/28/21 @ 14:29 by Zeeshan Nur MD) Anemia Atrial flutter BPH (benign prostatic hyperplasia) Carotid stenosis Cellulitis Chronic kidney disease Diabetes History of aortic stenosis s/p avr Hyperlipidemia Hypertension Hypothyroid Peripheral arterial disease Squamous cell carcinoma Multiple Stroke Surgical History S/P AVR (aortic valve replacement) Bioprosthetic (25 mm Buenrostro 2 porcine valve) October 2016 Family History Uncle Parkinson disease Brother Parkinson disease Other Family history non-contributory Social History Smoking Status: Former smoker Second Hand Exposure: No; Do You Dip or Chew Tobacco: No; Tobacco Cessation Education Requested by Patient: No Hx Alcohol Use: No Hx Substance Use: No Preferred Language: Czech Communication Ability: Impaired Yarn Winder Required: No Beliefs That Will Affect Care: None Current Living Situation: Other Current Living Situation Comment: home alone with spouse. Feels Safe at Home: Yes Safety Concerns: Feels Safe At This Time Assistive Devices: Oxygen - at Night Review of Systems Review of Systems: All systems reviewed & are unremarkable except as noted in HPI & below Constitutional: as per Subjective / HPI Physical Exam Physical Exam: Left lower extremity neurovascular sensory intact grossly, diminished pulses, neuropathy at baseline, 4 cm x 4 cm heel ulcer with well demarcated edges without surrounding cellulitis or drainage, + eschar. Constitutional: WD/WN, vitals as above Results & Data ([facility]) Vital Signs (Past 12 Hours) Vital Signs Temp Pulse Pulse Resp BP Pulse Ox 04/25/21 07:40 78 04/25/21 07:00 36.4 C L 81 20 134/70 90 04/25/21 04:00 36.9 C 93 H 18 120/56 L 97 04/25/21 00:00 37.0 C 73 18 101/64 92 Diagnostic Findings XR ankle LT min 3V routine CLINICAL HISTORY: unstageable ulcer ?osteomyelitis. Left heel ulcer. COMPARISON STUDY: None. FINDINGS: No acute fracture or dislocation within the left ankle. Vascular ca lcification is are noted. Deformity within the medial malleolus likely due to an old, healed fracture. Mild degenerative changes at the tibiotalar joint. Diffuse soft tissue swelling within the left lower leg, ankle, and hindfoot. There is a plantar heel spur. Suspect a soft tissue ulceration at the posterior heel. No underlying bony destruction to suggest an osteomyelitis. IMPRESSION: Soft tissue ulcer at the posterior heel. No underlying bony destruction to suggest an osteomyelitis. MR ankle LT wo/w con HISTORY: 86 years-old Male unstageable heel ulcer ?osteomyelitis chronic soft tissue wound of the hindfoot. Clinical concern for osteomyelitis. COMPARISON: Left ankle radiographs 04/22/2021 TECHNIQUE: Multiplanar multisequence MRI of the left ankle was obtained both with and without the use of 8.0 mL Gadavist. FINDINGS: Motion degraded exam. Extensive subcutaneous edema of the lower leg, foot and ankle, most pronounced within the dorsal forefoot. Mild subtalar, tibiotalar and midfoot osteoarthritis. Subcortical cystic changes involve the mid calcaneus with suggestion of a postsurgical linear tract measuring up to 2.5 cm in length. There is a soft tissue wound/ulcer of the posterior heel. No drainable fluid collection. There is a 2.0 cm area of subcortical and periosteal edema involving the posterolateral calcaneus with mild cortical indistinctness best seen on image 33 of series 11 and 12 and also image 19 of series 8. Mild associated enhancement. Bone marrow signal is otherwise within normal limits. Tendinosis of the peroneal, tibialis anterior and posterior tendons. Mild multifocal tenosynovitis. Diffuse muscular atrophy with intramuscular edema suggestive of chronic denervation changes. IMPRESSION: 1. Soft tissue ulcer of the posterior heel. No abscess. 2. Subtle bone marrow changes of the adjacent posterolateral calcaneus are suspicious for developing osteomyelitis. 3. Extensive subcutaneous edema suggestive of cellulitis, venous stasis or lymphedema. 4. Chronic denervation changes.
--- NOTE | 2021-04-25 13:04 | Hospitalist Progress Note ---
Date of Service April 25, 2021 Assessment & Plan (1) Altered mental status: Now resolved Suspect infection related given significant improvement with IV ceftriaxone started 04/21 for suspected UTI. Blood cultures taken after antibiotics started due to GPC growing in urine culture. Now urine culture growing gamma strep, not enterococcus. No specific urinary symptoms other than altered mental state. No CVA tenderness. MRI left ankle - possible osteomyelitis, procalcitonin negative. Ortho consulted TSH mildly elevated but unlikely cause of his acute altered mental state. (2) Peripheral arterial disease: Noted on US arterial doppler Continue clopidogrel and rosuvastatin Appreciate vascular surgery consult - planning on angiogram next week (3) Osteomyelitis of ankle: Possible diagnosis per MRI Consult orthopedics Consult ID pending (4) Unstageable pressure ulcer of heel: Appreciate wound care management. No surrounding cellulitis. MRI suggestive of early osteomyelitis Blood culture negative @ 24 hours (5) UTI (urinary tract infection): Possible (see above) (6) Bilateral leg edema: Improving with IV lasix 40mg daily therefore will continue Suspect heel infection causing worsened swelling of left side. Low Na diet, will not fluid restrict at the present time Continue daily I&Os Daily weights US venous doppler negative for DVT (7) Acute heart failure with preserved ejection fraction: See above (8) Hypoxia: Suspect secondary to aspiration in setting of altered mental state given quick resolution on admission Continue to monitor respiratory status Aim O2 sats > 90%, similar to prior discharge Aspiration precautions Known silent aspirations but risk feeding due to poor nutritional status on thickened fluids (9) Diabetes: Chronic. Well-controlled. Last A1c = 7.4 Hold oral agents, pioglitazone and Metformin Consult glycemic control given current poor control (10) Atrial flutter: Postoperative atrial flutter and atrial fibrillation with no documented recurrence on an event recorder, May,. Given peripheral artery disease will place on monitor to assess for recurrence Continue diltiazem 240 mg daily (11) Hypothyroid: Chronic. 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 every morning Continue Plavix 75 mg p.o. every morning (15) DVT prophylaxis: ProphylaxisLovenox 40mg SQ daily F/E/Ncontinue bowel regimen Codefull. DispoContinue on med/tele due to need for traffic monitor specialist Admission and Anticipated Discharge Date Admission Date: April 23, 2021 Subjective No concerns or questions. Legs starting to wrinkle somewhat. No ольга aspirations. No shortness of breath or chest pain. Review of Systems Review of Systems: All systems reviewed & are unremarkable except as noted in HPI & below Physical Exam Constitutional: well developed; + not well nourished and no acute distress Eyes: + anicteric sclerae; normal pupil size Respiratory: normal respiratory effort; no respiratory distress Auscultation: no diminished lung sounds, no rales and no wheezes Cardiovascular: Rate/Rhythm: regular rate and regular rhythm Heart Sounds: + murmur (3/6 systolic throughout) Extremities: normal capillary refill and + pedal edema (2+ b/l LE edema, equal); no calf tenderness Gastrointestinal (Abdomen): normal bowel sounds, soft, nontender, no hepatosplenomegaly Skin: + ulcer (dressing not removed, no surrounding cellulitis) Neurologic: moves all extremities and awake; not confused Psychiatric: Orientation: alert Results & Data Results & Data ([facility]) Vital Signs (Past 12 Hours) Vital Signs Temp Pulse Pulse Resp BP Pulse Ox 04/25/21 11:00 36.9 C 96 H 20 115/62 90 04/25/21 07:40 78 04/25/21 07:00 36.4 C L 81 20 134/70 90 04/25/21 04:00 36.9 C 93 H 18 120/56 L 97 PG Care Time/CCT Total # of Minutes Spent Total Time Spent with Patient: Total time spent is greater than 50% in coordination of care (as documented) at patient's floor/unit and/or counseling patient: Coding Level of Care Code 79821 Subseq Hosp Care Lvl 2 Diagnoses Altered mental status R41.82 Altered mental status type: unspecified Peripheral arterial disease I73.9 Osteomyelitis of ankle M86.172 Laterality: left Osteomyelitis type: other acute Unstageable pressure ulcer of heel L89.620 Laterality: left UTI (urinary tract infection) N39.0 Hematuria presence: without hematuria Urinary tract infection type: site unspecified Bilateral leg edema R60.0 Acute heart failure with preserved ejection fraction I50.31 Hypoxia R09.02 Diabetes E11.59 Diabetes mellitus complication detail: with other circulatory complications Diabetes mellitus complication status: with circulatory complication Diabetes mellitus intermediate accountant insulin use: without intermediate accountant use Diabetes mellitus type: type 2 Atrial flutter I48.92 Atrial flutter type: unspecified Hypothyroid E03.9 Hypothyroidism type: unspecified Hypertension I10 Hypertension type: essential hypertension Esophageal thickening K22.8 Stroke I63.9 CVA mechanism: unspecified DVT prophylaxis Z29.9 (1) UTI (urinary tract infection) Hematuria presence: without hematuria Urinary tract infection type: site unspecified Qualified Code(s): N39.0 - Urinary tract infection, site not specified (2) Unstageable pressure ulcer of heel Laterality: left Qualified Code(s): L89.620 - Pressure ulcer of left heel, unstageable (3) Diabetes Diabetes mellitus complication detail: with other circulatory complications Diabetes mellitus complication status: with circulatory complication Diabetes mellitus intermediate accountant insulin use: without intermediate accountant use Diabetes mellitus type: type 2 Qualified Code(s): E11.59 - Type 2 diabetes mellitus with other circulatory complications (4) Atrial flutter Atrial flutter type: unspecified Qualified Code(s): I48.92 - Unspecified atrial flutter (5) Hypothyroid Hypothyroidism type: unspecified Qualified Code(s): E03.9 - Hypothyroidism, unspecified (6) Osteomyelitis of ankle Laterality: left Osteomyelitis type: other acute Qualified Code(s): M86.172 - Other acute osteomyelitis, left ankle and foot (7) Altered mental status Altered mental status type: unspecified Qualified Code(s): R41.82 - Altered mental status, unspecified (8) Hypertension Hypertension type: essential hypertension Qualified Code(s): I10 - Essential (primary) hypertension (9) Stroke CVA mechanism: unspecified Qualified Code(s): I63.9 - Cerebral infarction, unspecified
[2021-04-25] MEDS: cefTRIAXone SODIUM 2,000 MG in DEXTROSE 5% 50 ML IV SCH (16:46)
[2021-04-25] MEDS: TAMSULOSIN HCL 0.4 MG CAP PO SCH (20:36)
[2021-04-26] MEDS: LEVOTHYROXINE SODIUM 100 MCG TABLET PO SCH (07:02)
[2021-04-26] MEDS: FUROSEMIDE 40 MG in SYRINGE 0 ML IV SCH (08:42)
[2021-04-26] MEDS: ROSUVASTATIN CALCIUM 20 MG TAB PO SCH (08:42)
[2021-04-26] MEDS: FAMOTIDINE 40 MG TABLET PO SCH (08:42)
[2021-04-26] MEDS: dilTIAZem HCL 240 MG CAPCR PO SCH (08:42)
[2021-04-26] MEDS: DOCUSATE SODIUM/SENNA 50/8.6MG TAB PO SCH (08:42)
[2021-04-26] MEDS: DOCUSATE SODIUM 100 MG CAP PO SCH ×2 (08:42→20:34)
[2021-04-26] MEDS: CLOPIDOGREL BISULFATE 75 MG TAB PO SCH (08:42)
[2021-04-26] MEDS: ENOXAPARIN INJ 40 MG/0.4 ML SYR SQ SCH (08:43)
[2021-04-26] MEDS: INSULIN ASPART 100 UNITS/ML 3 ML PEN SC SCH ×4 (08:44→20:43)
[2021-04-26] MEDS ORDERED: INSULIN GLARGINE SOLOSTAR 100 UNITS/ML 3 ML PEN SC SCH (09:00)
[2021-04-26 09:06] LABS: BUN Creatinine Ratio 22.5 (10-20); Calcium 8.1 mg/dl (8.5-10.1); Creatinine Clr Calc Pharmacy 63.3 ml/min; Est GFR (African American) 93.4 ml/min; Est GFR (Non-African American) 80.6 ml/min
--- NOTE | 2021-04-26 11:09 | Pharmacy Report ---
Pharmacy Glycemic Short Note 2 - Date of Service April 26, 2021 - Glycemic Short BSG Results (Last 24 hours): 04/25/21 04/25/21 04/25/21 11:37 16:47 20:10 Glucose POC Glucose 191 H 181 H 273 H 04/25/21 04/26/21 04/26/21 20:15 07:53 08:23 Glucose 169 H POC Glucose 262 H 177 H OUTPATIENT ANTIDIABETIC REGIMEN: * metformin 1000 mg PO BID * pioglitazone 30 mg PO daily * A1c = 7.4% ASSESSMENT: 04/26/21 * Patient's BSGs yesterday were elevated - [phone] mg/dL. Fasting BSG today is 177 mg/dL. * Patient received 23 units of insulin yesterday which were all bolus. * Start Lantus again but give 10 units today since fasting extremely elevated. * Tighten Novolog for now until Lantus is onboard then can loosen. 04/25/21 * Patient is currently receiving an average of 22 units of insulin per day * 7 units of basal insulin * 15 units of prandial/correctional insulin * BSGs ranging 132- 246 over the past 24hrs * Risk factors for insulin resistance are constant over the past 24hrs * Anticipating insulin regimen will need decreased for the next 24hrs d/t : * AM Fasting BSG = 99 therefore Basal insulin will be stopped due to decreased fasting (132 mg/dL to 99 mg/dL). May be resumed tomorrow at lower dose depending on fasting. * Once carbohydrate ratio was added, BSGs trended downwards throughout the day. Since basal insulin removed, will tighten CF/CR slightly to provide for coverage * Total daily dose = ~15-20 units/day 04/26/21 * 86 year old diabetic male well controlled on oral agents as an outpatient. * Oral agents held on admission. Patient was started on Lantus + Novolog. * Fasting BSG near goal. Will continue current Lantus dose for now. * Post prandial BSG elevation noted. Will tighten correction factor and add carb coverage. PLAN FOR INPATIENT GLYCEMIC CONTROL: * Hold outpatient oral diabetes medications * Basal insulin * Lantus 10 units daily * Bolus insulin * NovoLog per scale ACHS or Q6hrs while NPO * Goal Range: Low 100 mg/dL - High 140 mg/dL * Correction Factor: 20 mg/dL/unit * Nutritional / Prandial insulin per carb ratio of 1 unit per 6 grams CHO consumed PLAN FOR DISCHARGE: * A1c at goal
[2021-04-26] MEDS: TAMSULOSIN HCL 0.4 MG CAP PO SCH (20:35)
--- NOTE | 2021-04-26 23:56 | Hospitalist Progress Note ---
Date of Service April 26, 2021 Assessment & Plan (1) Altered mental status: Present on admission. Now resolved. Suspect infection related given significant improvement with IV ceftriaxone started 04/21 for suspected UTI. Blood cultures taken after antibiotics started due to GPC growing in urine culture. Now urine culture growing gamma strep, not enterococcus. No specific urinary symptoms other than altered mental state. No CVA tenderness. MRI left ankle - possible osteomyelitis, procalcitonin negative. Ortho consulted TSH mildly elevated but unlikely cause of his acute altered mental state. (2) Peripheral arterial disease: Noted on US arterial doppler Continue clopidogrel and rosuvastatin Appreciate vascular surgery consult - planning on angiogram next week (3) Osteomyelitis of ankle: Possible diagnosis per MRI Appreciate orthopedic consult - Nonurgent debridement of heel ulcer can be performed after revascularization procedure. Continue IV ceftriaxone pending ID consult (4) Unstageable pressure ulcer of heel: Appreciate wound care management. No surrounding cellulitis. MRI suggestive of early osteomyelitis (see above) Blood culture negative @ 48 hours (5) UTI (urinary tract infection): Possible (see above) (6) Bilateral leg edema: Improving with IV lasix 40mg daily therefore will continue Suspect heel infection causing worsened swelling of left side. Low Na diet, will not fluid restrict at the present time I&Os Daily weights 90.9 -> 81.6kg US venous doppler negative for DVT (7) Acute heart failure with preserved ejection fraction: See above (8) Hypoxia: Present on admission. Now resolved. Suspect secondary to aspiration in setting of altered mental state given quick resolution on admission Continue to monitor respiratory status Aim O2 sats > 90%, similar to prior discharge Aspiration precautions Known silent aspirations but risk feeding due to poor nutritional status on thickened fluids (9) Diabetes: Chronic. Well-controlled. Last A1c = 7.4 Hold oral agents, pioglitazone and Metformin Consult glycemic control given current poor control (10) Atrial flutter: Postoperative atrial flutter and atrial fibrillation with no documented recurrence on an event recorder, May,. Given peripheral artery disease will place on monitor to assess for recurrence Continue diltiazem 240 mg daily (11) Hypothyroid: Chronic. 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 every morning Continue Plavix 75 mg p.o. every morning (15) DVT prophylaxis: ProphylaxisLovenox 40mg SQ daily F/E/Ncontinue bowel regimen Codefull. DispoContinue on med/tele Admission and Anticipated Discharge Date Admission Date: April 23, 2021 Subjective No acute events overnight. No questions or concerns. Review of Systems Review of Systems: All systems reviewed & are unremarkable except as noted in HPI & below Physical Exam Constitutional: well developed; + not well nourished and no acute distress Eyes: + anicteric sclerae; normal pupil size Respiratory: normal respiratory effort; no respiratory distress Cardiovascular: Extremities: normal capillary refill and + pedal edema (2+ b/l LE edema, equal); no calf tenderness Skin: + ulcer (left heel) Neurologic: moves all extremities and awake; not confused Psychiatric: Orientation: alert Results & Data Results & Data ([facility]) Vital Signs (Past 12 Hours) Vital Signs Temp Pulse Pulse Resp BP Pulse Ox 04/26/21 22:55 37.0 C 95 H 15 152/65 H 95 04/26/21 19:57 36.6 C 75 18 138/76 93 04/26/21 15:59 70 04/26/21 15:00 36.4 C L 73 18 126/68 91 PG Care Time/CCT Total # of Minutes Spent Total Time Spent with Patient: Total time spent is greater than 50% in coordination of care (as documented) at patient's floor/unit and/or counseling patient: Coding Level of Care Code 08544 Subseq Hosp Care Lvl 2 Diagnoses Altered mental status R41.82 Altered mental status type: unspecified Peripheral arterial disease I73.9 Osteomyelitis of ankle M86.172 Osteomyelitis type: other acute Laterality: left Unstageable pressure ulcer of heel L89.620 Laterality: left UTI (urinary tract infection) N39.0 Urinary tract infection type: site unspecified Hematuria presence: without hematuria Bilateral leg edema R60.0 Acute heart failure with preserved ejection fraction I50.31 Hypoxia R09.02 Diabetes E11.59 Diabetes mellitus type: type 2 Diabetes mellitus group home insulin use: without group home use Diabetes mellitus complication status: with circulatory complication Diabetes mellitus complication detail: with other circulatory complications Atrial flutter I48.92 Atrial flutter type: unspecified Hypothyroid E03.9 Hypothyroidism type: unspecified Hypertension I10 Hypertension type: essential hypertension Esophageal thickening K22.8 Stroke I63.9 CVA mechanism: unspecified DVT prophylaxis Z29.9 (1) Altered mental status Altered mental status type: unspecified Qualified Code(s): R41.82 - Altered mental status, unspecified (2) Osteomyelitis of ankle Osteomyelitis type: other acute Laterality: left Qualified Code(s): M86.172 - Other acute osteomyelitis, left ankle and foot (3) Unstageable pressure ulcer of heel Laterality: left Qualified Code(s): L89.620 - Pressure ulcer of left heel, unstageable (4) UTI (urinary tract infection) Urinary tract infection type: site unspecified Hematuria presence: without hematuria Qualified Code(s): N39.0 - Urinary tract infection, site not specified (5) Diabetes Diabetes mellitus type: type 2 Diabetes mellitus radio engineer insulin use: without radio engineer use Diabetes mellitus complication status: with circulatory complication Diabetes mellitus complication detail: with other circulatory complications Qualified Code(s): E11.59 - Type 2 diabetes mellitus with other circulatory complications (6) Atrial flutter Atrial flutter type: unspecified Qualified Code(s): I48.92 - Unspecified atrial flutter (7) Hypothyroid Hypothyroidism type: unspecified Qualified Code(s): E03.9 - Hypothyroidism, unspecified (8) Hypertension Hypertension type: essential hypertension Qualified Code(s): I10 - Essential (primary) hypertension (9) Stroke CVA mechanism: unspecified Qualified Code(s): I63.9 - Cerebral infarction, unspecified
[2021-04-27] MEDS: LEVOTHYROXINE SODIUM 100 MCG TABLET PO SCH (05:52)
[2021-04-27 06:56] LABS: BUN Creatinine Ratio 28.9 (10-20); Calcium 7.8 mg/dl (8.5-10.1); Creatinine Clr Calc Pharmacy 70.6 ml/min; Est GFR (African American) 97.7 ml/min; Est GFR (Non-African American) 84.3 ml/min; Potassium 3.8 mmol/L (3.5-5.1)
[2021-04-27] MEDS: CLOPIDOGREL BISULFATE 75 MG TAB PO SCH (08:21)
[2021-04-27] MEDS: DOCUSATE SODIUM/SENNA 50/8.6MG TAB PO SCH (08:21)
[2021-04-27] MEDS: dilTIAZem HCL 240 MG CAPCR PO SCH (08:21)
[2021-04-27] MEDS: DOCUSATE SODIUM 100 MG CAP PO SCH ×2 (08:22→20:10)
[2021-04-27] MEDS: INSULIN GLARGINE SOLOSTAR 100 UNITS/ML 3 ML PEN SC SCH (08:22)
[2021-04-27] MEDS: ENOXAPARIN INJ 40 MG/0.4 ML SYR SQ SCH (08:22)
[2021-04-27] MEDS: FAMOTIDINE 40 MG TABLET PO SCH (08:22)
[2021-04-27] MEDS: FUROSEMIDE 40 MG in SYRINGE 0 ML IV SCH (08:22)
[2021-04-27] MEDS: INSULIN ASPART 100 UNITS/ML 3 ML PEN SC SCH ×4 (08:22→20:26)
[2021-04-27] MEDS: ROSUVASTATIN CALCIUM 20 MG TAB PO SCH (08:22)
[2021-04-27] MEDS: cefTRIAXone SODIUM 2,000 MG in DEXTROSE 5% 50 ML IV SCH (08:27)
--- NOTE | 2021-04-27 09:15 | Hospitalist Progress Note ---
Date of Service April 27, 2021 Assessment & Plan (1) Altered mental status: Encephalopathy, metabolic, secondary to diabetic foot infection resolved. Suspect infection related given significant improvement with IV ceftriaxone started 04/21 for suspected UTI. Blood cultures taken after antibiotics started due to GPC growing in urine culture. Now urine culture growing gamma strep, not enterococcus. MRI left ankle - possible osteomyelitis, procalcitonin negative. Ortho consulted (2) Peripheral arterial disease: Noted on US arterial doppler, may inpact diabetic foot infection healing Continue clopidogrel and rosuvastatin Appreciate vascular surgery consult - planning on angiogram next week (3) Osteomyelitis of ankle: Possible diagnosis per MRI This is a diabetic foot infection, seems to be improving with antibiotics Appreciate orthopedic consult - Nonurgent debridement of heel ulcer can be performed after revascularization procedure. Continue IV ceftriaxone pending ID consult (4) Unstageable pressure ulcer of heel: Appreciate wound care management. No surrounding cellulitis. MRI suggestive of early osteomyelitis (see above) Blood culture negative (5) UTI (urinary tract infection): Possible (see above) (6) Bilateral leg edema: Improving with IV lasix 40mg daily therefore will continue Suspect heel infection causing worsened swelling of left side. Low Na diet, will not fluid restrict at the present time I&Os Daily weights 90.9 -> 81.6kg US venous doppler negative for DVT (7) Acute heart failure with preserved ejection fraction: See above (8) Hypoxia: Present on admission. Now resolved. Suspect secondary to aspiration in setting of altered mental state given quick resolution on admission Continue to monitor respiratory status Aim O2 sats > 90%, similar to prior discharge Aspiration precautions Known silent aspirations but risk feeding due to poor nutritional status on thickened fluids (9) Diabetes: Chronic. Well-controlled. Last A1c = 7.4 Hold oral agents, pioglitazone and Metformin Consult glycemic control given current poor control (10) Atrial flutter: Postoperative atrial flutter and atrial fibrillation with no documented recurrence on an event recorder, May,. Given peripheral artery disease will place on monitor to assess for recurrence Continue diltiazem 240 mg daily (11) Hypothyroid: Chronic. 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 every morning Continue Plavix 75 mg p.o. every morning (15) DVT prophylaxis: ProphylaxisLovenox 40mg SQ daily F/E/Ncontinue bowel regimen Codefull. DispoContinue on med/tele Admission and Anticipated Discharge Date Admission Date: April 23, 2021 Subjective this pt is doing well, is aware of his situation with regard to a diabetic foot infection and possible osteomyelitis, has upcoming angiogram on 04/28 to asses blood flow, clinically leg is warm with poor capillary refill and neuropathy Review of Systems Review of Systems: Mild distress and fatigue no headache, no visual changes no speech or swallowing issues no chest pain, pressure or palpitations no shortness of breath, cough or wheezes no abdominal pain, nausea or vomiting, diarrhea or constipation no dysuria, hematuria or frequency ankle skin breakdown no back pain, CVA tenderness or radicular pain no bruising, bleeding or rashes no focal signs of weakness peripheral neuropathy no complaints of anxiety or depression.. Physical Exam Physical Exam: The patient appeared thin but appropriately nourished Vital signs as documented. Head exam is normocephalic atraumatic Neck is without JVD, thyromegaly, or carotid bruits. Lungs are clear to auscultation, no focal loss of breath sounds Cardiac exam, Rhythm is regular. shrill systolic murmur Abdominal exam reveals normal bowel sounds, soft non tender, no masses Extremities are nonedematous diminished pulses and cap refill L>R Neurologic exam is alert and oriented, does have gross loss of distal sensation to feet Skin is with left heel skin defect Psychologically is without concerns for anxiety or depression Results & Data Results & Data ([facility]) Vital Signs (Past 12 Hours) Vital Signs Temp Pulse Pulse Resp BP Pulse Ox 04/27/21 07:32 97.3 F L 67 18 122/72 94 04/27/21 07:14 68 04/27/21 02:52 97.3 F L 75 12 110/68 95 04/26/21 22:55 98.6 F 95 H 15 152/65 H 95 04/26/21 22:19 79 PG Care Time/CCT Total # of Minutes Spent Total Time Spent with Patient: Total time spent is greater than 50% in coordination of care (as documented) at patient's floor/unit and/or counseling patient: Coding Level of Care Code 73684 Subseq Hosp Care Lvl 3 Diagnoses Altered mental status R41.82 Altered mental status type: unspecified Peripheral arterial disease I73.9 Osteomyelitis of ankle M86.172 Laterality: left Osteomyelitis type: other acute Unstageable pressure ulcer of heel L89.620 Laterality: left UTI (urinary tract infection) N39.0 Hematuria presence: without hematuria Urinary tract infection type: site unspecified Bilateral leg edema R60.0 Acute heart failure with preserved ejection fraction I50.31 Hypoxia R09.02 Diabetes E11.59 Diabetes mellitus complication detail: with other circulatory complications Diabetes mellitus complication status: with circulatory complication Diabetes mellitus assistant terminal manager insulin use: without assistant terminal manager use Diabetes mellitus type: type 2 Atrial flutter I48.92 Atrial flutter type: unspecified Hypothyroid E03.9 Hypothyroidism type: unspecified Hypertension I10 Hypertension type: essential hypertension Esophageal thickening K22.8 Stroke I63.9 CVA mechanism: unspecified DVT prophylaxis Z29.9 (1) UTI (urinary tract infection) Hematuria presence: without hematuria Urinary tract infection type: site unspecified Qualified Code(s): N39.0 - Urinary tract infection, site not s pecified (2) Unstageable pressure ulcer of heel Laterality: left Qualified Code(s): L89.620 - Pressure ulcer of left heel, unstageable (3) Diabetes Diabetes mellitus complication detail: with other circulatory complications Diabetes mellitus complication status: with circulatory complication Diabetes mellitus assistant terminal manager insulin use: without assistant terminal manager use Diabetes mellitus type: type 2 Qualified Code(s): E11.59 - Type 2 diabetes mellitus with other circulatory complications (4) Atrial flutter Atrial flutter type: unspecified Qualified Code(s): I48.92 - Unspecified atrial flutter (5) Hypothyroid Hypothyroidism type: unspecified Qualified Code(s): E03.9 - Hypothyroidism, unspecified (6) Osteomyelitis of ankle Laterality: left Osteomyelitis type: other acute Qualified Code(s): M86.172 - Other acute osteomyelitis, left ankle and foot (7) Altered mental status Altered mental status type: unspecified Qualified Code(s): R41.82 - Altered mental status, unspecified (8) Hypertension Hypertension type: essential hypertension Qualified Code(s): I10 - Essential (primary) hypertension (9) Stroke CVA mechanism: unspecified Qualified Code(s): I63.9 - Cerebral infarction, unspecified
[2021-04-27] MEDS: TAMSULOSIN HCL 0.4 MG CAP PO SCH (20:11)
[2021-04-28] MEDS: LEVOTHYROXINE SODIUM 100 MCG TABLET PO SCH (06:24)
[2021-04-28] MEDS ORDERED: ceFAZolin 2000MG 2,000 MG/15 ML SYR IV SCH (08:00)
[2021-04-28 08:33] LABS: BUN Creatinine Ratio 27.9 (10-20); Creatinine Clr Calc Pharmacy 64.2 ml/min; Est GFR (African American) 93.9 ml/min; Potassium 4.2 mmol/L (3.5-5.1)
[2021-04-28] MEDS: INSULIN ASPART 100 UNITS/ML 3 ML PEN SC SCH ×4 (08:49→21:40)
[2021-04-28] MEDS: FAMOTIDINE 40 MG TABLET PO SCH (08:51)
[2021-04-28] MEDS: dilTIAZem HCL 240 MG CAPCR PO SCH (08:51)
[2021-04-28] MEDS: FUROSEMIDE 40 MG in SYRINGE 0 ML IV SCH (08:51)
[2021-04-28] MEDS: DOCUSATE SODIUM/SENNA 50/8.6MG TAB PO SCH (08:51)
[2021-04-28] MEDS: ROSUVASTATIN CALCIUM 20 MG TAB PO SCH (08:51)
[2021-04-28] MEDS: DOCUSATE SODIUM 100 MG CAP PO SCH ×2 (08:51→21:40)
[2021-04-28] MEDS: CLOPIDOGREL BISULFATE 75 MG TAB PO SCH (08:51)
[2021-04-28] MEDS: ENOXAPARIN INJ 40 MG/0.4 ML SYR SQ SCH (08:51)
[2021-04-28] MEDS ORDERED: INSULIN GLARGINE SOLOSTAR 100 UNITS/ML 3 ML PEN SC SCH (09:00)
[2021-04-28] MEDS: cefTRIAXone SODIUM 2,000 MG in DEXTROSE 5% 50 ML IV SCH (09:14)
--- NOTE | 2021-04-28 13:15 | Pharmacy Report ---
Pharmacy Glycemic Short Note 2 - Date of Service April 28, 2021 - Glycemic Short BSG Results (Last 24 hours): 04/27/21 04/27/21 04/27/21 16:43 20:18 20:25 Glucose POC Glucose 94 248 H 254 H 04/28/21 04/28/21 04/28/21 07:47 07:51 11:39 Glucose 147 H POC Glucose 162 H 179 H OUTPATIENT ANTIDIABETIC REGIMEN: * metformin 1000 mg PO BID * pioglitazone 30 mg PO daily * A1c = 7.4% ASSESSMENT: 04/28/21: * Patient rececived a total of 35 units of insulin yesterday * 8 units of basal * 27 units of bolus * BSGs ranged from 81 -254 mg/dL * Fasting BSG of 162 mg/dL is above goal. Lantus was slightly decreased on 04/27 due to fasting BSG below goal. May need to increase if trend continues. Partial dose given today for NPO. * Lunch BSG elevated today despite NPO status. Will tighten correctional insulin. 04/26/21 * Patient's BSGs yesterday were elevated - 68-379-148-273 mg/dL. Fasting BSG today is 177 mg/dL. * Patient received 23 units of insulin yesterday which were all bolus. * Start Lantus again but give 10 units today since fasting extremely elevated. * Tighten Novolog for now until Lantus is onboard then can loosen. 04/25/21 * Patient is currently receiving an average of 22 units of insulin per day * 7 units of basal insulin * 15 units of prandial/correctional insulin * BSGs ranging 132- 246 over the past 24hrs * Risk factors for insulin resistance are constant over the past 24hrs * Anticipating insulin regimen will need decreased for the next 24hrs d/t : * AM Fasting BSG = 99 therefore Basal insulin will be stopped due to decreased fasting (132 mg/dL to 99 mg/dL). May be resumed tomorrow at lower dose depending on fasting. * Once carbohydrate ratio was added, BSGs trended downwards throughout the day. Since basal insulin removed, will tighten CF/CR slightly to provide for coverage * Total daily dose = ~15-20 units/day PLAN FOR INPATIENT GLYCEMIC CONTROL: * Hold outpatient oral diabetes medications * Basal insulin * Lantus 6 units today * Resume Lantus 8 units SQ daily on 04/29 * Bolus insulin * NovoLog per scale ACHS or Q6hrs while NPO * Goal Range: Low 100 mg/dL - High 140 mg/dL * Correction Factor: 20 mg/dL/unit * Nutritional / Prandial insulin per carb ratio of 1 unit per 6 grams CHO consumed PLAN FOR DISCHARGE: * A1c at goal
[2021-04-28] MEDS ORDERED: MIDAZOLAM HCL 1 MG/ML 2ML VIAL ONE (14:10)
[2021-04-28] MEDS ORDERED: fentaNYL citrate 100 MCG/2 ML VIAL ONE (14:10)
--- NOTE | 2021-04-28 14:23 | History & Physical Bridge Note ---
Date of Service April 28, 2021 History & Physical Bridge Note Patient for left lower extremity arteriogram with possible intervention. I have discussed the risks options and benefits of the procedure with the patient. The patient understands the risks options and benefits and agrees to the procedure. I have examined the patient, reviewed the History & Physical and in the interval since the performance of the History & Physical I have noted the following changes of clinical significance: no changes noted
--- NOTE | 2021-04-28 14:35 | Anesthesiology Consultation ---
Date of Service April 28, 2021 Assessment & Plan (1) Encounter for pre-operative examination: Chart Review Chart Review: Acceptable Risk for Surgery History Surgery Operation Date: 04/28/21 14:20 Proposed Procedures p Left Leg Angiogram with Intervention - Drake Leon MD Height/Weight Height: 5 ft 8 in Weight: 81.6 kg Allergies Allergy/AdvReac Type Severity Reaction Status Date / Time metoprolol AdvReac Mild GI SYMPTOMS Verified 04/21/21 01:14 Medications Home Medications Medication Instructions Recorded Confirmed Last Taken cholecalciferol (vitamin D3) 1,000 unit PO QAM 05/30/19 04/21/21 05/30/19 [Vitamin D3] tamsulosin 0.4 mg PO QPM 05/30/19 04/21/21 05/29/19 levothyroxine 100 mcg tablet 100 mcg PO DAILY 02/16/21 04/21/21 Unknown clopidogrel 75 mg PO QAM #0 tab 03/03/21 04/21/21 Unknown docusate sodium 100 mg PO BID #60 cap 03/03/21 04/21/21 Unknown rosuvastatin [Crestor] 20 mg PO QAM #30 tab 03/03/21 04/21/21 Unknown acetaminophen [Tylenol] 650 mg PO Q6 PRN 04/21/21 04/21/21 Unknown bisacodyl [Dulcolax (bisacodyl)] [address] UD PRN 04/21/21 04/21/21 Unknown citalopram [Celexa] 5 mg PO HS 04/21/21 04/21/21 Unknown diltiazem HCl 240 mg PO DAILY 04/21/21 04/21/21 Unknown furosemide [Lasix] 20 mg PO DAILY 04/21/21 04/21/21 Unknown magnesium hydroxide [Milk of 30 ml PO UD PRN 04/21/21 04/21/21 Unknown Magnesia] metformin 1,000 mg PO BID 04/21/21 04/21/21 Unknown pioglitazone 30 mg PO DAILY 04/21/21 04/21/21 Unknown sennosides-docusate sodium [Senna 3 tab-cap PO DAILY 04/21/21 04/21/21 Unknown Plus] Active Medications Generic Name Dose Route Start Last Admin Trade Name Freq PRN Reason Stop Dose Admin Clopidogrel Bisulfate 75 mg 04/21/21 09:17 04/28/21 08:51 Clopidogrel Bisulfate 75 Mg Tab PO 05/21/21 09:16 75 mg QAM NILESH Administration Diltiazem HCl 240 mg 04/21/21 09:17 04/28/21 08:51 Diltiazem Hcl 240 Mg Capcr PO 05/21/21 09:16 240 mg DAILY NILESH Administration Docusate Sodium 100 mg 04/21/21 09:17 04/28/21 08:51 Docusate Sodium 100 Mg Cap PO 05/21/21 09:16 100 mg BID NILESH Administration Enoxaparin Sodium 40 mg 04/21/21 09:17 04/28/21 08:51 Enoxaparin Inj 40 Mg/0.4 Ml Syr SQ 05/21/21 09:16 40 mg Q24H NILESH Administration Famotidine 40 mg 04/21/21 09:17 04/28/21 08:51 Famotidine 40 Mg Tablet PO 05/21/21 09:16 40 mg QAM NILESH Administration Furosemide 40 mg/ Syringe 4 mls @ 4 mls/min 04/24/21 13:30 04/28/21 08:51 IV 05/24/21 13:29 4 mls/min QAM NILESH Administration Ceftriaxone Sodium 2,000 mg/ 70 mls @ 100 mls/hr 04/27/21 09:00 04/28/21 10:27 Dextrose IV 06/08/21 08:59 Infused QAM NILESH Infusion Protocol Insulin Aspart 0 units 04/21/21 09:17 04/28/21 12:33 Insulin Aspart 100 Units/Ml 3 Ml Pen SC 05/21/21 09:16 2 units ACHS NILESH Administration Insulin Glargine 8 units 04/27/21 09:00 04/27/21 08:22 Insulin Glargine Solostar 100 Units/Ml 3 Ml Pen SC 05/27/21 08:59 8 units QAM NILESH Administration Levothyroxine Sodium 100 mcg 04/21/21 09:17 04/28/21 06:24 Levothyroxine Sodium 100 Mcg Tablet PO 05/21/21 09:16 100 mcg DAILYBB NILESH Administration Rosuvastatin Calcium 20 mg 04/21/21 09:17 04/28/21 08:51 Rosuvastatin Calcium 20 Mg Tab PO 05/21/21 09:16 20 mg QAM NILESH Administration Senna/Docusate Sodium 3 tab 04/21/21 09:17 04/28/21 08:51 Docusate Sodium/Senna 50/8.6mg Tab PO 05/21/21 09:16 3 tab DAILY NILESH Administration Tamsulosin HCl 0.4 mg 04/21/21 21:00 04/27/21 20:11 Tamsulosin Hcl 0.4 Mg Cap PO 05/21/21 20:59 0.4 mg QPM NILESH Administration Past Medical History Medical History (Updated 04/28/21 @ 14:29 by Zeeshan Nur MD) Anemia Atrial flutter BPH (benign prostatic hyperplasia) Carotid stenosis Cellulitis Chronic kidney disease Diabetes History of aortic stenosis s/p avr Hyperlipidemia Hypertension Hypothyroid Peripheral arterial disease Squamous cell carcinoma Multiple Stroke Past Family History Family History Uncle Parkinson disease Brother Parkinson disease Other Family history non-contributory Past Surgical History Surgical History S/P AVR (aortic valve replacement) Bioprosthetic (25 mm Buenrostro 2 porcine valve) October 2016 Social History Smoking Status: Former smoker tobacco type: cigars Do You Dip or Chew Tobacco: No Hx Alcohol Use: No Hx Substance Use: No Physical Exam Vital Signs Last Vital Signs Temp 36.6 C 04/28/21 11:51 Pulse 90 04/28/21 11:51 Resp 16 04/28/21 11:51 BP 103/66 04/28/21 11:51 Pulse Ox 96 04/28/21 11:51 Testing Laboratory Results 04/25/21 08:14 04/28/21 07:51 PT Cancelled 04/20/21 22:00 INR Cancelled 04/20/21 22:00 APTT Cancelled 04/20/21 22:00 Urine Color Dark Yellow 04/21/21 00:10 Urine Appearance Clear (Clear) 04/21/21 00:10 Urine pH 6.0 (4.5-7.5) 04/21/21 00:10 Ur Specific [place] 1.024 (1.000-1.030) 04/21/21 00:10 Urine Protein 1+ (Negative) H 04/21/21 00:10 Urine Glucose (UA) 1+ (Negative) H 04/21/21 00:10 Urine Ketones Trace (Negative) H 04/21/21 00:10 Urine Nitrite Negative (Negative) 04/21/21 00:10 Ur Leukocyte Esterase Negative (Negative) 04/21/21 00:10 Urine WBC (Auto) 1-5 /hpf (0-5) 04/21/21 00:10 Urine RBC (Auto) 0-4 /hpf (0-4) 04/21/21 00:10 U Hyaline Cast (Auto) 1-5 /lpf (0-5) 04/21/21 00:10 U Epithel Cells (Auto) 10-20 /lpf (0-5) H 04/21/21 00:10 Urine Bacteria (Auto) 1+ (Negative) H 04/21/21 00:10 04/22/21 17:03 Aerobic Blood Culture - Final Blood No growth in Aerobic bottle after 5 days. Anaerobic Blood Culture - Final No growth in Anaerobic bottle after 5 days. 04/22/21 17:00 Aerobic Blood Culture - Final Blood No growth in Aerobic bottle after 5 days. Anaerobic Blood Culture - Final No growth in Anaerobic bottle after 5 days. 04/21/21 00:10 Urine Culture - Final Urine,Clean Catch Gamma strep not enterococcus 04/28/21 04/28/21 11:39 07:47 POC Glucose 179 H 162 H Electrocardiogram Date: 04/20/21 Findings: + NSR @ (87), + NSST changes and + poor R wave progression Chest X-Ray Date: 04/20/21 Findings: + pulmonary vascular congestion (mild) Echocardiogram Date: 02/26/21 LV Function: normal adequately functioning bioprosthetic aortic valve
[2021-04-28] MEDS ORDERED: ceFAZolin 1000MG 1,000 MG/7.5 ML SYR IV SCH (15:00)
[2021-04-28] MEDS ORDERED: LIDOCAINE 1% LOCAL 20 ML VIAL ONE (15:16)
[2021-04-28] MEDS ORDERED: VISIPAQUE IV PRN (16:09)
--- NOTE | 2021-04-28 16:10 | Post Operative Brief Note ---
Immediate Post Op Note v1 Date of Surgery April 28, 2021 Pre & Post Diagnosis Operation Date: 04/28/21 14:20 Pre-Op Diagnosis: Peripheral Artery Disease with Heel Ulcer Post-Op Diagnosis: Peripheral Artery Disease with Heel Ulcer I identified the patient and participated in the time-out.: Yes Procedure Operation Date: 04/28/21 14:20 Actual Procedures p Left Lower Extremity Angiogram , Ultrasound Localization of Right Femoral Artery, Mechanical Closure of Right Femoral Artery(Right) - Drake Leon MD Surgeon Drake Leon MD Play Reader MD Dian Estimated Blood Loss 5 Findings Consistent with Post-Op Diagnosis Ant and post tibial arteries are occluded. Peroneal is patent to the ankle. Distal anterior tibial artery reconstitutes just above the ankle and supplies the DP No intervention required. Anesthesia Type MAC Complications none Disposition Accompanied Patient To Recovery: No Disposition: Recovery Room
--- NOTE | 2021-04-28 16:24 | Procedure Note ---
Angiogram Post Procedure Fluoroscopy Time (minutes): 2.2 Radiation (mGy): 37 Contrast: 45cc Post Operative Report Pre & Post Diagnosis Operation Date: 04/28/21 14:20 Pre-Op Diagnosis: Peripheral Artery Disease with Heel Ulcer Post-Op Diagnosis: Peripheral Artery Disease with Heel Ulcer I identified the patient and participated in the time-out.: Yes Procedure Operation Date: 04/28/21 14:20 Actual Procedures p Left Lower Extremity Angiogram , Ultrasound Localization of Right Femoral Artery, Mechanical Closure of Right Femoral Artery(Right) - Drake Leon MD Surgeon Drake Leon MD Color Worker MD Dian Estimated Blood Loss 5 Findings Consistent with Post-Op Diagnosis Widely patent SFA, no intervention performed. Distal runoff to L Foot is from Peroneal artery (PT and AT occluded proximally), AT Reconstitutes at the level of the ankle from the peroneal. Specimens None Disposition Disposition: Recovery Room Description of Procedure Patient was placed on the operating room table in supine position. The patient was identified and a timeout performed. Local anesthesia was performed in the right groin with approximately 7 cc of 1% lidocaine. The femoral artery was accessed percutaneously under ultrasound guidance, and a 6 [place] sheath was placed via Seldinger technique. A floppy guidewire was passed retrograde, and up into the aortic bifurcation. Next an angled catheter was passed retrograde up into the aortic bifurcation, and the aortic bifurcation was straddled. The wire was then able to be passed over the bifurcation and down the contralateral left side. Over the tortuosity of the patient's iliofemoral vessels, we were unable to traverse the bifurcation with the angled catheter, so this catheter was withdrawn and a quickcross catheter was passed across the aortic bifurcation without issue. At this point we took our left lower extremity arteriogram images, which revealed a widely patent common femoral artery, superficial femoral artery, and popliteal artery. There were no lesions that were amenable to intervention. We did note that there were occlusions in the proximal posterior tibial artery as well as the proximal anterior tibial artery, and the patient's primary runoff to the foot was off of the peroneal artery the anterior tibial artery did reconstitute distally at the level of the ankle from the inf low provided by the peroneal artery. We withdrew our catheter, and we performed an angiogram from the sheath of the right groin access which appeared normal. At this point we brought up a StarClose percutaneous closure device to close arteriotomy. This was accomplished without incident. The procedure was then concluded and manual pressure was held prior to the patient leaving for the recovery room. Dr. Leon was present and scrubbed for the entire procedure. I attest to the content of the Intraoperative Record and any orders documented therein. Any exceptions are noted below.
--- NOTE | 2021-04-28 16:31 | Anesthesiology Progress Note ---
Date of Service April 28, 2021 Anesthesia Post Procedure Vital Signs Vital Signs: Temp Pulse Pulse Pulse Resp BP Pulse Ox 04/28/21 15:00 86 04/28/21 14:51 98.8 F 83 18 147/85 H 92 04/28/21 11:51 97.9 F 90 16 103/66 96 04/28/21 07:36 97.7 F 90 18 143/73 H 96 04/28/21 07:00 81 04/28/21 04:05 98.2 F 85 20 114/65 93 04/27/21 23:19 98.2 F 80 20 113/64 95 04/27/21 22:19 82 04/27/21 19:20 98.4 F 68 22 118/67 92 Transfer of Care Handoff Completed per policy Notes Mental Status: alert / awake / arousable and participated in evaluation Patient Amnestic to Procedure: Yes Nausea / Vomiting: adequately controlled Pain: adequately controlled Airway Patency, RR, SpO2: stable & adequate BP & HR: stable & adequate Hydration State: stable & adequate Anesthetic Complications: no major complications apparent and Pt Satisfied with anesthetic care
[2021-04-28] MEDS ORDERED: SODIUM CHLORIDE 0.9% 1000ML 1,000 ML IV SCH (17:05)
--- NOTE | 2021-04-28 19:33 | Hospitalist Progress Note ---
Date of Service April 28, 2021 Assessment & Plan (1) Altered mental status: Encephalopathy, metabolic, secondary to diabetic foot infection resolved. Suspect infection related given significant improvement with IV ceftriaxone started 04/21 for suspected UTI. Blood cultures taken after antibiotics started due to GPC growing in urine culture. Now urine culture growing gamma strep, not enterococcus. MRI left ankle - possible osteomyelitis, procalcitonin negative. Ortho consulted recommending non urgent debridement after revascularization, revascularization not indicated per vascular surg, will recontact ortho (2) Peripheral arterial disease: Noted on US arterial doppler, may inpact diabetic foot infection healing Continue clopidogrel and rosuvastatin Appreciate vascular surgery consult - angiography 04/28 Ant and post tibial arteries are occluded. Peroneal is patent to the ankle. Distal anterior tibial artery reconstitutes just above the ankle and supplies the DP No intervention required. 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 Continue IV ceftriaxone pending ID consult recommends bone biospy for further guidance on antibiotics (4) Unstageable pressure ulcer of heel: Appreciate wound care management. No surrounding cellulitis. MRI suggestive of early osteomyelitis (see above) Blood culture negative (5) UTI (urinary tract infection): Possible (see above) (6) Bilateral leg edema: Improving with IV lasix 40mg daily therefore will continue Suspect heel infection causing worsened swelling of left side. Low Na diet, will not fluid restrict at the present time I&Os Daily weights 90.9 -> 81.6kg US venous doppler negative for DVT (7) Acute heart failure with preserved ejection fraction: See above (8) Hypoxia: Present on admission. Now resolved. Suspect secondary to aspiration in setting of altered mental state given quick resolution on admission Continue to monitor respiratory status Aim O2 sats > 90%, similar to prior discharge Aspiration precautions Known silent aspirations but risk feeding due to poor nutritional status on thickened fluids (9) Diabetes: Chronic. Well-controlled. Last A1c = 7.4 Hold oral agents, pioglitazone and Metformin Consult glycemic control given current poor control (10) Atrial flutter: Postoperative atrial flutter and atrial fibrillation with no documented recurrence on an event recorder, May,. Given peripheral artery disease will place on monitor to assess for recurrence Continue diltiazem 240 mg daily (11) Hypothyroid: Chronic. 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 every morning Continue Plavix 75 mg p.o. every morning (15) DVT prophylaxis: ProphylaxisLovenox 40mg SQ daily F/E/Ncontinue bowel regimen Codefull. Admission and Anticipated Discharge Date Admission Date: April 23, 2021 Subjective this pt is doing well, is aware of his situation with regard to a diabetic foot infection and possible osteomyelitis, has upcoming angiogram on 04/28 to asses blood flow Review of Systems Review of Systems: Mild distress and fatigue no headache, no visual changes no speech or swallowing issues no chest pain, pressure or palpitations no shortness of breath, cough or wheezes no abdominal pain, nausea or vomiting, diarrhea or constipation no dysuria, hematuria or frequency ankle skin breakdown no back pain, CVA tenderness or radicular pain no bruising, bleeding or rashes no focal signs of weakness peripheral neuropathy no complaints of anxiety or depression.. Physical Exam Physical Exam: The patient appeared thin but appropriately nourished Vital signs as documented. Head exam is normocephalic atraumatic Neck is without JVD, thyromegaly, or carotid bruits. Lungs are clear to auscultation, no focal loss of breath sounds Cardiac exam, Rhythm is regular. shrill systolic murmur Abdominal exam reveals normal bowel sounds, soft non tender, no masses Extremities are nonedematous diminished pulses and cap refill L>R Neurologic exam is alert and oriented, does have gross loss of distal sensation to feet Skin is with left heel skin defect Psychologically is without concerns for anxiety or depression Results & Data Results & Data ([facility]) Vital Signs (Past 12 Hours) Vital Signs Temp Pulse Pulse Pulse Resp BP Pulse Ox 04/28/21 17:10 97.9 F 86 18 157/84 H 95 04/28/21 16:50 99.5 F 87 16 149/76 H 100 04/28/21 16:40 99.5 F 90 19 148/74 H 98 04/28/21 16:30 87 19 149/79 H 98 04/28/21 16:20 98.2 F 86 16 154/94 H 99 04/28/21 15:00 86 04/28/21 14:51 98.8 F 83 18 147/85 H 92 04/28/21 11:51 97.9 F 90 16 103/66 96 04/28/21 07:36 97.7 F 90 18 143/73 H 96 PG Care Time/CCT Total # of Minutes Spent Total Time Spent with Patient: Total time spent is greater than 50% in coordination of care (as documented) at patient's floor/unit and/or counseling patient: Coding Level of Care Code 21861 Subseq Hosp Care Lvl 3 Diagnoses Altered mental status R41.82 Altered mental status type: unspecified Peripheral arterial disease I73.9 Osteomyelitis of ankle M86.172 Osteomyelitis type: other acute Laterality: left Unstageable pressure ulcer of heel L89.620 Laterality: left UTI (urinary tract infection) N39.0 Urinary tract infection type: site unspecified Hematuria presence: without hematuria Bilateral leg edema R60.0 Acute heart failure with preserved ejection fraction I50.31 Hypoxia R09.02 Diabetes E11.59 Diabetes mellitus type: type 2 Diabetes mellitus terminal system operator insulin use: without terminal system operator use Diabetes mellitus complication status: with circulatory complication Diabetes mellitus complication detail: with other circulatory complications Atrial flutter I48.92 Atrial flutter type: unspecified Hypothyroid E03.9 Hypothyroidism type: unspecified Hypertension I10 Hypertension type: essential hypertension Esophageal thickening K22.8 Stroke I63.9 CVA mechanism: unspecified DVT prophylaxis Z29.9 (1) Altered mental status Altered mental status type: unspecified Qualified Code(s): R41.82 - Altered mental status, unspecified (2) Osteomyelitis of ankle Osteomyelitis type: other acute Laterality: left Qualified Code(s): M86.172 - Other acute osteomyelitis, left ankle and foot (3) Unstageable pressure ulcer of heel Laterality: left Qualified Code(s): L89.620 - Pressure ulcer of left heel, unstageable (4) UTI (urinary tract infection) Urinary tract infection type: site unspecified Hematuria presence: without hematuria Qualified Code(s): N39.0 - Urinary tract infection, site not specified (5) Diabetes Diabetes mellitus type: type 2 Diabetes mellitus terminal system operator insulin use: without long-term use Diabetes mellitus complication status: with circulatory complication Diabetes mellitus complication detail: with other circulatory complications Qualified Code(s): E11.59 - Type 2 diabetes mellitus with other circulatory complications (6) Atrial flutter Atrial flutter type: unspecified Qualified Code(s): I48.92 - Unspecified atrial flutter (7) Hypothyroid Hypothyroidism type: unspecified Qualified Code(s): E03.9 - Hypothyroidism, unspecified (8) Hypertension Hypertension type: essential hypertension Qualified Code(s): I10 - Essential (primary) hypertension (9) Stroke CVA mechanism: unspecified Qualified Code(s): I63.9 - Cerebral infarction, unspecified
[2021-04-28] MEDS: TAMSULOSIN HCL 0.4 MG CAP PO SCH (21:41)
[2021-04-29] MEDS: LEVOTHYROXINE SODIUM 100 MCG TABLET PO SCH (05:11)
[2021-04-29 07:42] LABS: BUN Creatinine Ratio 26.8 (10-20); Calcium 8.1 mg/dl (8.5-10.1); Creatinine Clr Calc Pharmacy 70.6 ml/min; Est GFR (African American) 97.7 ml/min; Est GFR (Non-African American) 84.3 ml/min; Potassium 4.1 mmol/L (3.5-5.1)
[2021-04-29] MEDS: DOCUSATE SODIUM/SENNA 50/8.6MG TAB PO SCH (08:23)
[2021-04-29] MEDS: dilTIAZem HCL 240 MG CAPCR PO SCH (08:23)
[2021-04-29] MEDS: ROSUVASTATIN CALCIUM 20 MG TAB PO SCH (08:24)
[2021-04-29] MEDS: FUROSEMIDE 40 MG in SYRINGE 0 ML IV SCH (08:24)
[2021-04-29] MEDS: FAMOTIDINE 40 MG TABLET PO SCH (08:24)
[2021-04-29] MEDS: DOCUSATE SODIUM 100 MG CAP PO SCH ×2 (08:24→20:07)
[2021-04-29] MEDS: ENOXAPARIN INJ 40 MG/0.4 ML SYR SQ SCH (08:24)
[2021-04-29] MEDS: CLOPIDOGREL BISULFATE 75 MG TAB PO SCH (08:24)
[2021-04-29] MEDS: INSULIN GLARGINE SOLOSTAR 100 UNITS/ML 3 ML PEN SC SCH (08:25)
[2021-04-29] MEDS: INSULIN ASPART 100 UNITS/ML 3 ML PEN SC SCH ×4 (08:26→20:07)
[2021-04-29] MEDS: cefTRIAXone SODIUM 2,000 MG in DEXTROSE 5% 50 ML IV SCH (08:32)
--- NOTE | 2021-04-29 16:45 | Orthopedic Progress Note ---
Date of Service April 29, 2021 Assessment & Plan (1) Pressure ulcer, heel, left, unstageable: Plan: Patient underwent angiogram without intervention yesterday. Heel likely will require debridement. Discussed with Dr. London. Will plan on OR for left heel I&D with Dr. London on Tuesday. Continue IV antibiotics as ordered. Admission and Anticipated Discharge Date Admission Date: April 23, 2021 Subjective Patient resting in bed comfortably. No significant pain. Denies complaints. Review of Systems Review of Systems: All systems reviewed & are unremarkable except as noted in Subjective Physical Exam Physical Exam: Left foot toes are mobile. No calf tenderness. Decreased sensation at baseline. Left heel ulcer with overlying eschar, well demarcated edges. No erythema or gross purluence noted. Results & Data ([facility]) Vital Signs (Past 12 Hours) Vital Signs Temp Pulse Pulse Resp BP Pulse Ox 04/29/21 16:00 79 04/29/21 15:00 36.5 C 82 20 112/62 90 04/29/21 11:13 36.3 C L 72 20 138/73 92 04/29/21 08:00 81 04/29/21 07:12 36.4 C L 61 20 150/74 H 99
--- NOTE | 2021-04-29 17:50 | Hospitalist Progress Note ---
Date of Service April 29, 2021 Assessment & Plan (1) Altered mental status: Plan: Altered mental status: Encephalopathy, metabolic, secondary to diabetic foot infection resolved. Suspect infection related given significant improvement with IV ceftriaxone started 04/21 for suspected UTI. Blood cultures taken after antibiotics started due to GPC growing in urine culture. Now urine culture growing gamma strep, not enterococcus. MRI left ankle - possible osteomyelitis, procalcitonin negative. Ortho consulted recommending non urgent debridement after revascularization, revascularization not indicated per vascular surg, will recontacted ortho plans for incise and drain clean up in the OR on the (2) Peripheral arterial disease: Plan: Noted on US arterial doppler, may inpact diabetic foot infection healing Continue clopidogrel and rosuvastatin Appreciate vascular surgery consult - angiography 04/28 Ant and post tibial arteries are occluded. Peroneal is patent to the ankle. Distal anterior tibial artery reconstitutes just above the ankle and supplies the DP No intervention required. (3) Osteomyelitis of ankle: Plan: Possible diagnosis per MRI This is a diabetic foot infection, seems to be improving with antibiotics Appreciate orthopedic consult - Nonurgent debridement of heel ulcer can be performed after revascularization procedure. Continue IV ceftriaxone pending ID consult recommends bone biospy for further guidance on antibiotics (4) Unstageable pressure ulcer of heel: Plan: Appreciate wound care management. No surrounding cellulitis. MRI suggestive of early osteomyelitis (see above) Blood culture negative (5) UTI (urinary tract infection): (6) Bilateral leg edema: Plan: Improving with IV lasix 40mg daily therefore will continue Suspect heel infection causing worsened swelling of left side. Low Na diet, will not fluid restrict at the present time I&Os Daily weights 90.9 -> 81.6kg US venous doppler negative for DVT (7) Acute heart failure with preserved ejection fraction: (8) Hypoxia: Plan: Present on admission. Now resolved. Suspect secondary to aspiration in setting of altered mental state given quick resolution on admission Continue to monitor respiratory status Aim O2 sats > 90%, similar to prior discharge Aspiration precautions Known silent aspirations but risk feeding due to poor nutritional status on thickened fluids (9) Diabetes: Plan: Chronic. Well-controlled. Last A1c = 7.4 Hold oral agents, pioglitazone and Metformin Consult glycemic control given current poor control (10) Atrial flutter: Plan: Postoperative atrial flutter and atrial fibrillation with no documented recurrence on an event recorder, May,. Given peripheral artery disease will place on monitor to assess for recurrence Continue diltiazem 240 mg daily (11) Hypothyroid: Plan: Chronic. 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 every morning Continue Plavix 75 mg p.o. every morning (15) DVT prophylaxis: Plan: Lovenox subcu for DVT prevention full code Admission and Anticipated Discharge Date Admission Date: April 23, 2021 Subjective Patient is awake and alert he is understanding of his situation little more bright than usual today. Review of Systems Review of Systems: he patient appeared thin but appropriately nourished Vital signs as documented. Head exam is normocephalic atraumatic Neck is without JVD, thyromegaly, or carotid bruits. Lungs are clear to auscultation, no focal loss of breath sounds Cardiac exam, Rhythm is regular. shrill systolic murmur Abdominal exam reveals normal bowel sounds, soft non tender, no masses Extremities are nonedematous diminished pulses and cap refill L>R Neurologic exam is alert and oriented, does have gross loss of distal sensation to feet Skin is with left heel skin defect Psychologically is without concerns for anxiety or depression Physical Exam Physical Exam: he patient appeared thin but appropriately nourished Vital signs as documented. Head exam is normocephalic atraumatic Neck is without JVD, thyromegaly, or carotid bruits. Lungs are clear to auscultation, no focal loss of breath sounds Cardiac exam, Rhythm is regular. shrill systolic murmur Abdominal exam reveals normal bowel sounds, soft non tender, no masses Extremities are nonedematous diminished pulses and cap refill L>R Neurologic exam is alert and oriented, does have gross loss of distal sensation to feet Skin is with left heel skin defect Psychologically is without concerns for anxiety or depression Results & Data Results & Data ([facility]) Vital Signs (Past 12 Hours) Vital Signs Temp Pulse Pulse Resp BP Pulse Ox 04/29/21 16:00 79 04/29/21 15:00 97.7 F 82 20 112/62 90 04/29/21 11:13 97.3 F L 72 20 138/73 92 04/29/21 08:00 81 04/29/21 07:12 97.5 F L 61 20 150/74 H 99 PG Care Time/CCT Total # of Minutes Spent Total Time Spent with Patient: Total time spent is greater than 50% in coordination of care (as documented) at patient's floor/unit and/or counseling patient: Coding Level of Care Code 84025 Subseq Hosp Care Lvl 2 Diagnoses Altered mental status R41.82 Altered mental status type: unspecified Peripheral arterial disease I73.9 Osteomyelitis of ankle M86.172 Osteomyelitis type: other acute Laterality: left Unstageable pressure ulcer of heel L89.620 Laterality: left UTI (urinary tract infection) N39.0 Urinary tract infection type: site unspecified Hematuria presence: without hematuria Bilateral leg edema R60.0 Acute heart failure with preserved ejection fraction I50.31 Hypoxia R09.02 Diabetes E11.59 Diabetes mellitus type: type 2 Diabetes mellitus tug hand insulin use: without tug hand use Diabetes mellitus complication status: with circulatory complication Diabetes mellitus complication detail: with other circulatory complications Atrial flutter I48.92 Atrial flutter type: unspecified Hypothyroid E03.9 Hypothyroidism type: unspecified Hypertension I10 Hypertension type: essential hypertension Esophageal thickening K22.8 Stroke I63.9 CVA mechanism: unspecified DVT prophylaxis Z29.9 (1) Altered mental status Altered mental status type: unspecified Qualified Code(s): R41.82 - Altered mental status, unspecified (2) Osteomyelitis of ankle Osteomyelitis type: other acute Laterality: left Qualified Code(s): M86.172 - Other acute osteomyelitis, left ankle and foot (3) Unstageable pressure ulcer of heel Laterality: left Qualified Code(s): L89.620 - Pressure ulcer of left heel, unstageable (4) UTI (urinary tract infection) Urinary tract infection type: site unspecified Hematuria presence: without hematuria Qualified Code(s): N39.0 - Urinary tract infection, site not specified (5) Diabetes Diabetes mellitus type: type 2 Diabetes mellitus tug hand insulin use: without fdc use Diabetes mellitus complication status: with circulatory complication Diabetes mellitus complication detail: with other circulatory complications Qualified Code(s): E11.59 - Type 2 diabetes mellitus with other circulatory complications (6) Atrial flutter Atrial flutter type: unspecified Qualified Code(s): I48.92 - Unspecified atrial flutter (7) Hypothyroid Hypothyroidism type: unspecified Qualified Code(s): E03.9 - Hypothyroidism, unspecified (8) Hypertension Hypertension type: essential hypertension Qualified Code(s): I10 - Essential (primary) hypertension (9) Stroke CVA mechanism: unspecified Qualified Code(s): I63.9 - Cerebral infarction, unspecified
[2021-04-29] MEDS: TAMSULOSIN HCL 0.4 MG CAP PO SCH (20:07)
[2021-04-30] MEDS: LEVOTHYROXINE SODIUM 100 MCG TABLET PO SCH (05:58)
[2021-04-30 07:50] LABS: BUN Creatinine Ratio 30.8 (10-20); Calcium 7.7 mg/dl (8.5-10.1); Creatinine Clr Calc Pharmacy 70.6 ml/min; Est GFR (African American) 97.7 ml/min; Est GFR (Non-African American) 84.3 ml/min; Potassium 4.2 mmol/L (3.5-5.1)
[2021-04-30] MEDS: INSULIN ASPART 100 UNITS/ML 3 ML PEN SC SCH ×4 (08:57→20:32)
[2021-04-30] MEDS: ENOXAPARIN INJ 40 MG/0.4 ML SYR SQ SCH (09:01)
[2021-04-30] MEDS: FAMOTIDINE 40 MG TABLET PO SCH (09:04)
[2021-04-30] MEDS: DOCUSATE SODIUM/SENNA 50/8.6MG TAB PO SCH (09:04)
[2021-04-30] MEDS: cefTRIAXone SODIUM 2,000 MG in DEXTROSE 5% 50 ML IV SCH (09:04)
[2021-04-30] MEDS: dilTIAZem HCL 240 MG CAPCR PO SCH (09:05)
[2021-04-30] MEDS: DOCUSATE SODIUM 100 MG CAP PO SCH ×2 (09:05→20:29)
[2021-04-30] MEDS: FUROSEMIDE 40 MG in SYRINGE 0 ML IV SCH (09:05)
[2021-04-30] MEDS: CLOPIDOGREL BISULFATE 75 MG TAB PO SCH (09:05)
[2021-04-30] MEDS: ROSUVASTATIN CALCIUM 20 MG TAB PO SCH (09:05)
[2021-04-30] MEDS: INSULIN GLARGINE SOLOSTAR 100 UNITS/ML 3 ML PEN SC SCH (09:12)
--- NOTE | 2021-04-30 11:14 | Anesthesiology Consultation ---
Date of Service April 30, 2021 Assessment & Plan (1) Encounter for pre-operative examination: Chart Review Chart Review: Acceptable Risk for Surgery (necessary surgery) and Patient NOT seen in Pre Admission Testing Consults Requested none History Surgery Operation Date: 04/28/21 14:20 Proposed Procedures p Left Leg Angiogram with Intervention - Drake Leon MD Operation Date: 05/01/21 12:45 Proposed Procedures p Left Heel Incision and Drainage - Dustin London DO Height/Weight Height: 5 ft 8 in Weight: 81.2 kg Allergies Allergy/AdvReac Type Severity Reaction Status Date / Time metoprolol AdvReac Mild GI SYMPTOMS Verified 04/21/21 01:14 Medications Home Medications Medication Instructions Recorded Confirmed Last Taken cholecalciferol (vitamin D3) 25 1,000 unit PO QAM 05/30/19 04/21/21 05/30/19 mcg (1,000 unit) capsule (Vitamin D3) tamsulosin 0.4 mg capsule 0.4 mg PO QPM 05/30/19 04/21/21 05/29/19 levothyroxine 100 mcg tablet 100 mcg PO DAILY 02/16/21 04/21/21 Unknown clopidogrel 75 mg tablet 75 mg PO QAM #0 tab 03/03/21 04/21/21 Unknown docusate sodium 100 mg capsule 100 mg PO BID #60 cap 03/03/21 04/21/21 Unknown rosuvastatin 20 mg tablet (Crestor) 20 mg PO QAM #30 tab 03/03/21 04/21/21 Unknown acetaminophen 325 mg capsule 650 mg PO Q6 PRN 04/21/21 04/21/21 Unknown (Tylenol) bisacodyl 10 mg rectal suppository 10 mg OH UD PRN 04/21/21 04/21/21 Unknown (Dulcolax (bisacodyl)) citalopram 10 mg tablet (Celexa) 5 mg PO HS 04/21/21 04/21/21 Unknown diltiazem HCl 120 mg 240 mg PO DAILY 04/21/21 04/21/21 Unknown capsule,extended release 12 hr furosemide 20 mg tablet (Lasix) 20 mg PO DAILY 04/21/21 04/21/21 Unknown magnesium hydroxide 400 mg/5 mL 30 ml PO UD PRN 04/21/21 04/21/21 Unknown oral suspension (Milk of Magnesia) metformin 1,000 mg tablet 1,000 mg PO BID 04/21/21 04/21/21 Unknown pioglitazone 15 mg tablet 30 mg PO DAILY 04/21/21 04/21/21 Unknown sennosides 8.6 mg-docusate sodium 3 tab-cap PO DAILY 04/21/21 04/21/21 Unknown 50 mg capsule (Senna Plus) Active Medications Generic Name Dose Route Start Last Admin Trade Name Freq PRN Reason Stop Dose Admin Clopidogrel Bisulfate 75 mg 04/21/21 09:17 04/30/21 09:05 Clopidogrel Bisulfate 75 Mg Tab PO 05/21/21 09:16 75 mg QAM NILESH Administration Diltiazem HCl 240 mg 04/21/21 09:17 04/30/21 09:05 Diltiazem Hcl 240 Mg Capcr PO 05/21/21 09:16 240 mg DAILY NILESH Administration Docusate Sodium 100 mg 04/21/21 09:17 04/30/21 09:05 Docusate Sodium 100 Mg Cap PO 05/21/21 09:16 100 mg BID NILESH Administration Enoxaparin Sodium 40 mg 04/21/21 09:17 04/30/21 09:01 Enoxaparin Inj 40 Mg/0.4 Ml Syr SQ 05/21/21 09:16 40 mg Q24H NILESH Administration Famotidine 40 mg 04/21/21 09:17 04/30/21 09:04 Famotidine 40 Mg Tablet PO 05/21/21 09:16 40 mg QAM NILESH Administration Furosemide 40 mg/ Syringe 4 mls @ 4 mls/min 04/24/21 13:30 04/30/21 09:05 IV 05/24/21 13:29 4 mls/min QAM NILESH Administration Ceftriaxone Sodium 2,000 mg/ 70 mls @ 100 mls/hr 04/27/21 09:00 04/30/21 10:02 Dextrose IV 06/08/21 08:59 Infused QAM NILESH Infusion Protocol Insulin Aspart 0 units 04/21/21 09:17 04/30/21 08:57 Insulin Aspart 100 Units/Ml 3 Ml Pen SC 05/21/21 09:16 15 units ACHS NILESH Administration Insulin Glargine 9 units 04/30/21 09:00 04/30/21 09:12 Insulin Glargine Solostar 100 Units/Ml 3 Ml Pen SC 05/30/21 08:59 9 units QAM NILESH Administration Iodixanol 45 ml 04/28/21 16:09 04/28/21 16:10 Visipaque IV 05/02/21 16:08 45 ml UD PRN Administration Interaction Checking Levothyroxine Sodium 100 mcg 04/21/21 09:17 04/30/21 05:58 Levothyroxine Sodium 100 Mcg Tablet PO 05/21/21 09:16 100 mcg DAILYBB NILESH Administration Magnesium Hydroxide 30 ml 04/21/21 09:17 04/29/21 06:18 Magnesium Hydroxide Susp 30 Ml Udc PO 05/21/21 09:16 30 ml UD PRN Administration Constipation Rosuvastatin Calcium 20 mg 04/21/21 09:17 04/30/21 09:05 Rosuvastatin Calcium 20 Mg Tab PO 05/21/21 09:16 20 mg QAM NILESH Administration Senna/Docusate Sodium 3 tab 04/21/21 09:17 04/30/21 09:04 Docusate Sodium/Senna 50/8.6mg Tab PO 05/21/21 09:16 3 tab DAILY NILESH Administration Tamsulosin HCl 0.4 mg 04/21/21 21:00 04/29/21 20:07 Tamsulosin Hcl 0.4 Mg Cap PO 05/21/21 20:59 0.4 mg QPM NILESH Administration NPO Date Last Intake of Fluids: 04/28/21 Time Last Intake of Fluids: 00:00 Date Last Intake of Solids: 04/28/21 Time Last Intake of Solids: 00:00 Past Medical History Medical History Anemia Atrial flutter BPH (benign prostatic hyperplasia) Carotid stenosis Cellulitis Chronic kidney disease Diabetes History of aortic stenosis s/p avr Hyperlipidemia Hypertension Hypothyroid Peripheral arterial disease Squamous cell carcinoma Multiple Stroke Past Family History Family History Uncle Parkinson disease Brother Parkinson disease Other Family history non-contributory Past Surgical History Surgical History S/P AVR (aortic valve replacement) Bioprosthetic (25 mm Buenrostro 2 porcine valve) October 2016 Social History Smoking Status: Former smoker tobacco type: cigars Do You Dip or Chew Tobacco: No Hx Alcohol Use: No Hx Substance Use: No Physical Exam Vital Signs Last Vital Signs Temp 36.8 C 04/30/21 07:40 Pulse 73 04/30/21 07:40 Resp 18 04/30/21 07:40 BP 128/72 04/30/21 07:40 Pulse Ox 92 04/30/21 07:40 Testing Laboratory Results 04/25/21 08:14 04/30/21 06:46 PT Cancelled 04/20/21 22:00 INR Cancelled 04/20/21 22:00 APTT Cancelled 04/20/21 22:00 Urine Color Dark Yellow 04/21/21 00:10 Urine Appearance Clear (Clear) 04/21/21 00:10 Urine pH 6.0 (4.5-7.5) 04/21/21 00:10 Ur Specific [place] 1.024 (1.000-1.030) 04/21/21 00:10 Urine Protein 1+ (Negative) H 04/21/21 00:10 Urine Glucose (UA) 1+ (Negative) H 04/21/21 00:10 Urine Ketones Trace (Negative) H 04/21/21 00:10 Urine Nitrite Negative (Negative) 04/21/21 00:10 Ur Leukocyte Esterase Negative (Negative) 04/21/21 00:10 Urine WBC (Auto) 1-5 /hpf (0-5) 04/21/21 00:10 Urine RBC (Auto) 0-4 /hpf (0-4) 04/21/21 00:10 U Hyaline Cast (Auto) 1-5 /lpf (0-5) 04/21/21 00:10 U Epithel Cells (Auto) 10-20 /lpf (0-5) H 04/21/21 00:10 Urine Bacteria (Auto) 1+ (Negative) H 04/21/21 00:10 04/22/21 17:03 Aerobic Blood Culture - Final Blood No growth in Aerobic bottle after 5 days. Anaerobic Blood Culture - Final No growth in Anaerobic bottle after 5 days. 04/22/21 17:00 Aerobic Blood Culture - Final Blood No growth in Aerobic bottle after 5 days. Anaerobic Blood Culture - Final No growth in Anaerobic bottle after 5 days. 04/21/21 00:10 Urine Culture - Final Urine,Clean Catch Gamma strep not enterococcus 04/30/21 07:29 POC Glucose 139 H Electrocardiogram Date: 04/20/21 Findings: + NSR @ (87), + NSST changes and + poor R wave progression Chest X-Ray Date: 04/20/21 Findings: + pulmonary vascular congestion (mild) Echocardiogram Date: 02/26/21 LV Function: normal adequately functioning bioprosthetic aortic valve
--- NOTE | 2021-04-30 15:46 | Pharmacy Report ---
Pharmacy Glycemic Short Note 2 - Date of Service April 30, 2021 - Glycemic Short BSG Results (Last 24 hours): 04/29/21 04/29/21 04/30/21 16:29 20:03 06:46 Glucose 124 H POC Glucose 141 H 166 H 04/30/21 04/30/21 07:29 11:13 Glucose POC Glucose 139 H 242 H OUTPATIENT ANTIDIABETIC REGIMEN: * metformin 1000 mg PO BID * pioglitazone 30 mg PO daily * A1c = 7.4% ASSESSMENT: 04/30/21: * Fasting BSG is at goal. I will reduce Lantus dose for 05/01 AM due to NPO for L heel I&D. * Post prandial BSGs fluctuate. Lunch tends to be the highest BSG of the day, therefore I will tighten carb coverage with breakfast only. 04/28/21: * Patient rececived a total of 35 units of insulin yesterday * 8 units of basal * 27 units of bolus * BSGs ranged from 81 -254 mg/dL * Fasting BSG of 162 mg/dL is above goal. Lantus was slightly decreased on 04/27 due to fasting BSG below goal. May need to increase if trend continues. Partial dose given today for NPO. * Lunch BSG elevated today despite NPO status. Will tighten correctional insulin. 04/26/21 * Patient's BSGs yesterday were elevated - [phone] mg/dL. Fasting BSG today is 177 mg/dL. * Patient received 23 units of insulin yesterday which were all bolus. * Start Lantus again but give 10 units today since fasting extremely elevated. * Tighten Novolog for now until Lantus is onboard then can loosen. 04/25/21 * Patient is currently receiving an average of 22 units of insulin per day * 7 units of basal insulin * 15 units of prandial/correctional insulin * BSGs ranging 132- 246 over the past 24hrs * Risk factors for insulin resistance are constant over the past 24hrs * Anticipating insulin regimen will need decreased for the next 24hrs d/t : * AM Fasting BSG = 99 therefore Basal insulin will be stopped due to decreased fasting (132 mg/dL to 99 mg/dL). May be resumed tomorrow at lower dose depending on fasting. * Once carbohydrate ratio was added, BSGs trended downwards throughout the day. Since basal insulin removed, will tighten CF/CR slightly to provide for coverage * Total daily dose = ~15-20 units/day PLAN FOR INPATIENT GLYCEMIC CONTROL: * Hold outpatient oral diabetes medications * Basal insulin * Lantus 7 units qAM for 05/01 (NPO) * Resume Lantus 9 units SQ daily on 05/02 * Bolus insulin * NovoLog per scale ACHS or Q6hrs while NPO * Goal Range: Low 100 mg/dL - High 140 mg/dL Breakfast * Correction Factor: 20 mg/dL/unit * Nutritional / Prandial insulin per carb ratio of 1 unit per 4 grams CHO consumed Lunch/dinner/HS * Correction Factor: 20 mg/dL/unit * Nutritional / Prandial insulin per carb ratio of 1 unit per 5 grams CHO consumed PLAN FOR DISCHARGE: * A1c at goal
--- NOTE | 2021-04-30 17:02 | Hospitalist Progress Note ---
Date of Service April 30, 2021 Assessment & Plan (1) Altered mental status: Plan: Altered mental status: Encephalopathy, metabolic, secondary to diabetic foot infection resolved. diabetic foot infection significant improvement with IV ceftriaxone started 04/21 for suspected UTI. Blood cultures taken after antibiotics started due to GPC growing in urine culture. Now urine culture growing gamma strep, not enterococcus. MRI left ankle - possible osteomyelitis, procalcitonin negative. Ortho consulted recommending non urgent debridement after revascularization, revascularization not indicated per vascular surg, will ortho plans for incise and drain clean up in the OR on the (2) Peripheral arterial disease: Plan: Noted on US arterial doppler, vascular surgery consult - angiography 04/28 Ant and post tibial arteries are occluded. Peroneal is patent to the ankle. Distal anterior tibial artery reconstitutes just above the ankle and supplies the DP, No intervention required. 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 Continue IV ceftriaxone pending ID consult recommends bone biospy for further guidance on antibiotics (4) Unstageable pressure ulcer of heel: Plan: Appreciate wound care management. No surrounding cellulitis. MRI suggestive of early osteomyelitis (see above) Blood culture negative (5) UTI (urinary tract infection): Plan: gamma strep not enterococcus, treated with ceftriaxone (6) Bilateral leg edema: Plan: Improving with IV lasix 40mg daily therefore will continue and change to po Suspect heel infection causing worsened swelling of left side. Low Na diet, will not fluid restrict at the present time I&Os Daily weights 90.9 -> 81.6kg US venous doppler negative for DVT (7) Acute heart failure with preserved ejection fraction: (8) Hypoxia: Plan: Present on admission. Now resolved. Suspect secondary to aspiration in setting of altered mental state given quick resolution on admission Continue to monitor respiratory status Aim O2 sats > 90%, similar to prior discharge Aspiration precautions Known silent aspirations but risk feeding due to poor nutritional status on thickened fluids (9) Diabetes: Plan: Chronic. Well-controlled. Last A1c = 7.4 Hold oral agents, pioglitazone and Metformin Consult glycemic control given current poor control (10) Atrial flutter: Plan: Postoperative atrial flutter and atrial fibrillation with no documented recurrence on an event recorder, May,. Given peripheral artery disease will place on monitor to assess for recurrence Continue diltiazem 240 mg daily (11) Hypothyroid: Plan: Chronic. 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 every morning Continue Plavix 75 mg p.o. every morning (15) DVT prophylaxis: Plan: Lovenox subcu for DVT prevention full code Admission and Anticipated Discharge Date Admission Date: April 23, 2021 Subjective Patient is awake and alert he is understanding of his situation little more bright than usual today. Review of Systems Review of Systems: he patient appeared thin but appropriately nourished Vital signs as documented. Head exam is normocephalic atraumatic Neck is without JVD, thyromegaly, or carotid bruits. Lungs are clear to auscultation, no focal loss of breath sounds Cardiac exam, Rhythm is regular. shrill systolic murmur Abdominal exam reveals normal bowel sounds, soft non tender, no masses Extremities are nonedematous diminished pulses and cap refill L>R Neurologic exam is alert and oriented, does have gross loss of distal sensation to feet Skin is with left heel skin defect Psychologically is without concerns for anxiety or depression Physical Exam Physical Exam: he patient appeared thin but appropriately nourished Vital signs as documented. Head exam is normocephalic atraumatic Neck is without JVD, thyromegaly, or carotid bruits. Lungs are clear to auscultation, no focal loss of breath sounds Cardiac exam, Rhythm is regular. shrill systolic murmur Abdominal exam reveals normal bowel sounds, soft non tender, no masses Extremities are nonedematous diminished pulses and cap refill L>R Neurologic exam is alert and oriented, does have gross loss of distal sensation to feet Skin is with left heel skin defect Psychologically is without concerns for anxiety or depression Results & Data Results & Data ([facility]) Vital Signs (Past 12 Hours) Vital Signs Temp Pulse Resp BP Pulse Ox 04/30/21 14:44 97.9 F 69 18 102/62 96 04/30/21 11:39 98.2 F 76 18 122/70 92 04/30/21 07:40 98.2 F 73 18 128/72 92 PG Care Time/CCT Total # of Minutes Spent Total Time Spent with Patient: Total time spent is greater than 50% in coordination of care (as documented) at patient's floor/unit and/or counseling patient: Coding Level of Care Code 12303 Subseq Hosp Care Lvl 2 Diagnoses Altered mental status R41.82 Altered mental status type: unspecified Peripheral arterial disease I73.9 Osteomyelitis of ankle M86.172 Osteomyelitis type: other acute Laterality: left Unstageable pressure ulcer of heel L89.620 Laterality: left UTI (urinary tract infection) N39.0 Urinary tract infection type: site unspecified Hematuria presence: without hematuria Bilateral leg edema R60.0 Acute heart failure with preserved ejection fraction I50.31 Hypoxia R09.02 Diabetes E11.59 Diabetes mellitus type: type 2 Diabetes mellitus detention insulin use: without detention use Diabetes mellitus complication status: with circulatory complication Diabetes mellitus complication detail: with other circulatory complications Atrial flutter I48.92 Atrial flutter type: unspecified Hypothyroid E03.9 Hypothyroidism type: unspecified Hypertension I10 Hypertension type: essential hypertension Esophageal thickening K22.8 Stroke I63.9 CVA mechanism: unspecified DVT prophylaxis Z29.9 (1) Altered mental status Altered mental status type: unspecified Qualified Code(s): R41.82 - Altered mental status, unspecified (2) Osteomyelitis of ankle Osteomyelitis type: other acute Laterality: left Qualified Code(s): M86.172 - Other acute osteomyelitis, left ankle and foot (3) Unstageable pressure ulcer of heel Laterality: left Qualified Code(s): L89.620 - Pressure ulcer of left heel, unstageable (4) UTI (urinary tract infection) Urinary tract infection type: site unspecified Hematuria presence: without hematuria Qualified Code(s): N39.0 - Urinary tract infection, site not specified (5) Diabetes Diabetes mellitus type: type 2 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 use: without middle or intermediate school principal use Diabetes mellitus complication status: with circulatory complication Diabetes mellitus complication detail: with other circulatory complications Qualified Code(s): E11.59 - Type 2 diabetes mellitus with other circulatory complications (6) Atrial flutter Atrial flutter type: unspecified Qualified Code(s): I48.92 - Unspecified atrial flutter (7) Hypothyroid Hypothyroidism type: unspecified Qualified Code(s): E03.9 - Hypothyroidism, unspecified (8) Hypertension Hypertension type: essential hypertension Qualified Code(s): I10 - Essential (primary) hypertension (9) Stroke CVA mechanism: unspecified Qualified Code(s): I63.9 - Cerebral infarction, unspecified
[2021-04-30] MEDS: TAMSULOSIN HCL 0.4 MG CAP PO SCH (20:29)
[2021-04-30] MEDS: ACETAMINOPHEN 325 MG TAB PO PRN (20:29)
[2021-05-01] MEDS: LEVOTHYROXINE SODIUM 100 MCG TABLET PO SCH (06:21)
[2021-05-01] MEDS ORDERED: Nursing to Pharmacy Communication SCH ×2 (06:45→17:30)
[2021-05-01] MEDS: INSULIN ASPART 100 UNITS/ML 3 ML PEN SC SCH ×4 (07:16→22:07)
[2021-05-01] MEDS ORDERED: INSULIN ASPART 100 UNITS/ML 3 ML PEN SC SCH (07:30)
[2021-05-01] MEDS: ROSUVASTATIN CALCIUM 20 MG TAB PO SCH (08:45)
[2021-05-01] MEDS: DOCUSATE SODIUM 100 MG CAP PO SCH ×3 (08:45→22:06)
[2021-05-01] MEDS: DOCUSATE SODIUM/SENNA 50/8.6MG TAB PO SCH (08:45)
[2021-05-01] MEDS: FAMOTIDINE 40 MG TABLET PO SCH (08:45)
[2021-05-01] MEDS: FUROSEMIDE 40 MG TAB PO SCH (08:45)
[2021-05-01] MEDS: CLOPIDOGREL BISULFATE 75 MG TAB PO SCH (08:45)
[2021-05-01] MEDS: dilTIAZem HCL 240 MG CAPCR PO SCH (08:45)
[2021-05-01] MEDS: cefTRIAXone SODIUM 2,000 MG in DEXTROSE 5% 50 ML IV SCH (08:46)
[2021-05-01] MEDS ORDERED: INSULIN GLARGINE SOLOSTAR 100 UNITS/ML 3 ML PEN SC SCH (09:00)
[2021-05-01] MEDS ORDERED: PROPOFOL IV EMULSION 10 MG/ML 20 ML VIAL IV ONE (13:38)
[2021-05-01] MEDS ORDERED: fentaNYL citrate 100 MCG/2 ML VIAL ONE (13:38)
[2021-05-01] MEDS ORDERED: LIDOCAINE 2% 2 ML VIAL/AMP(20MG/ML) INFIL ONE (13:38)
--- NOTE | 2021-05-01 14:24 | History & Physical Bridge Note ---
Date of Service May 01, 2021 History & Physical Bridge Note I have examined the patient, reviewed the History & Physical and in the interval since the performance of the History & Physical I have noted the following changes of clinical significance: Will require left heel incision and drainage for abscess and severe left heel ulcer.
[2021-05-01] MEDS ORDERED: BUPIVACAINE 0.5 % 5 MG/1 ML MPF 30ML VIAL ONE (14:42)
--- NOTE | 2021-05-01 15:51 | Post Operative Brief Note ---
Immediate Post Op Note v1 Date of Surgery May 01, 2021 Pre & Post Diagnosis Operation Date: 04/28/21 14:20 Pre-Op Diagnosis: Peripheral Artery Disease with Heel Ulcer Post-Op Diagnosis: Peripheral Artery Disease with Heel Ulcer Operation Date: 05/01/21 12:45 Pre-Op Diagnosis: left plantar heel ulcer 5 cm x 5 cm x 0.6 cm, abscess left heel, peripheral arterial disease, tissue necrosis Post-Op Diagnosis: left plantar heel ulcer 5 cm x 5 cm x 0.6 cm, abscess left heel, peripheral arterial disease, tissue necrosis I identified the patient and participated in the time-out.: Yes Procedure Operation Date: 04/28/21 14:20 Actual Procedures p Left Lower Extremity Angiogram , Ultrasound Localization of Right Femoral Artery, Mechanical Closure of Right Femoral Artery(Right) - Drake Leon MD Operation Date: 05/01/21 12:45 Actual Procedures p Incision and Drainage abscess left heel, Irrigation and debridement of Left Heel Ulcer 5 cm x 5 cm x 0.6 cm, debridement of skin, subcutaneous fat, fascia and periosteum (Left) - Dustin London DO Surgeon Dustin London DO Superintendent Measurement None Estimated Blood Loss 3 Findings Consistent with Post-Op Diagnosis Specimens Tissue left heel Anesthesia Type General Regional Disposition Accompanied Patient To Recovery: No
[2021-05-01] MEDS ORDERED: ePHEDrine sulfate 50 MG/ML AMP IV PRN (16:03)
[2021-05-01] MEDS ORDERED: ATROPINE SULFATE 0.1 MG/ML 10ML SYR IV PRN (16:03)
[2021-05-01] MEDS ORDERED: ePHEDrine sulfate 50 MG/ML AMP ONE (16:03)
--- NOTE | 2021-05-01 16:44 | Anesthesiology Progress Note ---
Date of Service May 01, 2021 Anesthesia Post Procedure Vital Signs Vital Signs: Temp Pulse Pulse Pulse Resp BP Pulse Ox 05/01/21 16:30 37.0 C 68 11 L 123/56 L 98 05/01/21 16:20 37.0 C 68 14 119/53 L 98 05/01/21 16:10 75 13 128/60 98 05/01/21 16:00 73 14 114/56 L 96 05/01/21 15:53 36.5 C 67 18 121/56 L 96 05/01/21 14:14 36.5 C 75 20 126/60 91 05/01/21 11:09 36.9 C 75 20 118/65 91 05/01/21 07:56 65 05/01/21 04:04 36.7 C 80 18 136/62 90 05/01/21 00:00 79 04/30/21 23:39 36.9 C 82 18 109/59 L 96 04/30/21 19:43 36.8 C 59 L 18 115/57 L 90 Transfer of Care Handoff Completed per policy Notes Mental Status: alert / awake / arousable and participated in evaluation Patient Amnestic to Procedure: Yes Nausea / Vomiting: adequately controlled Pain: adequately controlled Airway Patency, RR, SpO2: stable & adequate BP & HR: stable & adequate Hydration State: stable & adequate Anesthetic Complications: no major complications apparent and Pt Satisfied with anesthetic care
[2021-05-01] MEDS ORDERED: MAGNESIUM HYDROXIDE SUSP 30 ML UDC PO PRN (16:56)
[2021-05-01] MEDS ORDERED: bisacodyL 10 MG SUPP PR PRN (16:56)
[2021-05-01] MEDS ORDERED: ONDANSETRON INJ 2 MG/ML 2 ML VIAL IV PRN (16:56)
[2021-05-01] MEDS ORDERED: SODIUM CHLORIDE 0.9% 1000ML 1,000 ML IV SCH (16:56)
[2021-05-01] MEDS ORDERED: METOCLOPRAMIDE HCL INJ 5 MG/ML 2 ML VIAL IV PRN (16:56)
[2021-05-01] MEDS ORDERED: NALOXONE HCL 0.4 MG/1 ML VIAL/CARP IV PRN (16:56)
--- NOTE | 2021-05-01 19:11 | Operative Report (OR) ---
DATE OF PROCEDURE: 05/01/2021 PREOPERATIVE DIAGNOSES: 1. Left plantar heel ulceration 5 cm x 5 cm x 0.6 cm. 2. Abscess of the left heel. 3. Peripheral artery disease. 4. Tissue necrosis. POSTOPERATIVE DIAGNOSES: 1. Left plantar heel ulceration 5 cm x 5 cm x 0.6 cm. 2. Abscess of the left heel. 3. Peripheral artery disease. 4. Tissue necrosis. PROCEDURE PERFORMED: 1. Left heel incision and drainage of abscess, left plantar heel. 2. Irrigation and debridement of heel ulcer measuring 5 cm x 5 cm x 0.6 cm. 3. Debridement of skin, subcutaneous fat, fascia and periosteum of the left heel. SURGEON: Dustin London DO. JOB PLACEMENT SPECIALIST: None. ANESTHESIA: General, regional. SPECIMENS: Tissue, left heel. DRAINS: None. COMPLICATIONS: None. BLOOD LOSS: 3 mL. PERTINENT HISTORY: This is an 86-year-old gentleman with left heel pressure ulcer for greater than 3 weeks. The patient was seen by vascular surgery for angiography with intervention. The patient was seen at the request of the medicine service and evaluated and noted to have no definite osteomyeliti s on x-ray or MRI, questionable developing osteomyelitis. The patient had a vascular procedure and w as then scheduled for surgical debridement of the heel as indicated. All potential risks, benefits, complications, alternatives, rehab potential for incomplete relief of symptoms, DVT, PE, , persistent pain, swelling, scarring, weakness, neurovascular injury, wound complications, need for further surgery or amputation were discussed with the family and the patient; they decided to proceed with the procedure as indicated. DESCRIPTION OF PROCEDURE: The patient was taken to the operative suite and placed supine on the tabl e. After review of consent and identification of proper site, the patient was anesthetized, LMA was placed. Left lower extremity was then sterilely prepped and draped in the usual sterile fashion, jb vated and partially exsanguinated just proximal to the heel with an Esmarch bandage, and an Esmarch t ourniquet was applied over sterile surgical towel at the level of the ankle. Next, after surgical timeout was performed, a 15 blade scalpel was used to circumferentially debride the large ulceration measuring 5 cm x 5 cm x 0.6 cm. Initial debridement was performed from skin, isaac bcutaneous fat and fascia. Next, after this was sharply debrided back to a more healthy appearing ti ssue, the site was copiously irrigated with sterile saline with Ancef. There was noted to be a sing le area along the lateral aspect that appeared to go deep. This was sharply debrided with a 15-blade scalpel. This tracked down to fascia and periosteum. However, there is no violation of the periost eum. There was noted to be an adjacent abscess fluid collection, which was then evacuated. It did n ot appear to invade the periosteum. Next, after this was completed, pulsatile lavage 3 liters in total with Ancef has been used to cleans e the heel and soft tissue including skin, fascia and subQ. Next, a sterile lightly compressive dres sing was applied consisting of Adaptic, sterile 4 x 4s, ABD pads x3, cast padding and an Wu wrap. T his was applied after regional anesthetic was injected approximately 20 mL surrounding the surgical s ite including the sural nerve and the posterior tibial nerve. This was overwrapped with an Wu wrap. The tourniquet was released. The patient awakened and taken to recovery in stable condition. Job ID: [id number]
--- NOTE | 2021-05-01 19:16 | Hospitalist Progress Note ---
Date of Service May 01, 2021 Assessment & Plan (1) Altered mental status: Plan: Altered mental status: Encephalopathy, metabolic, secondary to diabetic foot infection resolved. diabetic foot infection significant improvement with IV ceftriaxone started 04/21 for suspected UTI. Blood cultures taken after antibiotics started due to GPC growing in urine culture. Now urine culture growing gamma strep, not enterococcus. MRI left ankle - possible osteomyelitis, procalcitonin negative. Ortho consulted recommending non urgent debridement after revascularization, revascularization not indicated per vascular surg, 05/01/21 Incision and Drainage abscess left heel, Irrigation and debridement of Left Heel Ulcer 5 cm x 5 cm x 0.6 cm, debridement of skin, subcutaneous fat, fascia and periosteum (Left) - Dustin London DO (2) Peripheral arterial disease: Plan: Noted on US arterial doppler, vascular surgery consult - angiography 04/28 Ant and post tibial arteries are occluded. Peroneal is patent to the ankle. Distal anterior tibial artery reconstitutes just above the ankle and supplies the DP, No intervention required. 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 Continue IV ceftriaxone pending ID consult recommends bone biospy for further guidance on antibiotics (4) Unstageable pressure ulcer of heel: Plan: Appreciate wound care management. No surrounding cellulitis. MRI suggestive of early osteomyelitis (see above) Blood culture negative (5) UTI (urinary tract infection): Plan: gamma strep not enterococcus, treated with ceftriaxone (6) Bilateral leg edema: Plan: Improving with lasix 40mg daily Suspect heel infection causing worsened swelling of left side. Low Na diet, will not fluid restrict at the present time I&Os Daily weights 90.9 -> 81.6kg US venous doppler negative for DVT (7) Acute heart failure with preserved ejection fraction: (8) Hypoxia: Plan: Present on admission. Now resolved. Suspect secondary to aspiration in setting of altered mental state given quick resolution on admission Continue to monitor respiratory status Aim O2 sats > 90%, similar to prior discharge Aspiration precautions Known silent aspirations but risk feeding due to poor nutritional status on thickened fluids (9) Diabetes: Plan: Chronic. Well-controlled. Last A1c = 7.4 Hold oral agents, pioglitazone and Metformin Consult glycemic control given current poor control (10) Atrial flutter: Plan: Postoperative atrial flutter and atrial fibrillation with no documented recurrence on an event recorder, May,. Given peripheral artery disease will place on monitor to assess for recurrence Continue diltiazem 240 mg daily (11) Hypothyroid: Plan: Chronic. 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 every morning Continue Plavix 75 mg p.o. every morning (15) DVT prophylaxis: Plan: Lovenox subcu for DVT prevention full code Admission and Anticipated Discharge Date Admission Date: April 23, 2021 Subjective Patient is awake and alert he is understanding of his situation little more bright than usual today, s/p surgery today. Review of Systems Review of Systems: he patient appeared thin but appropriately nourished Vital signs as documented. Head exam is normocephalic atraumatic Neck is without JVD, thyromegaly, or carotid bruits. Lungs are clear to auscultation, no focal loss of breath sounds Cardiac exam, Rhythm is regular. shrill systolic murmur Abdominal exam reveals normal bowel sounds, soft non tender, no masses Extremities are nonedematous diminished pulses and cap refill L>R Neurologic exam is alert and oriented, does have gross loss of distal sensation to feet Skin is with left heel skin defect Psychologically is without concerns for anxiety or depression Physical Exam Physical Exam: he patient appeared thin but appropriately nourished Vital signs as documented. Head exam is normocephalic atraumatic Neck is without JVD, thyromegaly, or carotid bruits. Lungs are clear to auscultation, no focal loss of breath sounds Cardiac exam, Rhythm is regular. shrill systolic murmur Abdominal exam reveals normal bowel sounds, soft non tender, no masses Extremities are nonedematous diminished pulses and cap refill L>R Neurologic exam is alert and oriented, does have gross loss of distal sensation to feet Skin is with left heel skin defect Psychologically is without concerns for anxiety or depression Results & Data Results & Data ([facility]) Vital Signs (Past 12 Hours) Vital Signs Temp Pulse Pulse Pulse Resp BP Pulse Ox 05/01/21 18:09 97.9 F 101 H 18 114/69 93 05/01/21 17:35 97.9 F 80 16 106/63 93 05/01/21 17:03 74 05/01/21 17:00 97.7 F 75 16 129/69 93 05/01/21 16:49 97.3 F L 71 16 127/66 97 05/01/21 16:30 98.6 F 68 11 L 123/56 L 98 05/01/21 16:20 98.6 F 68 14 119/53 L 98 05/01/21 16:10 75 13 128/60 98 05/01/21 16:00 73 14 114/56 L 96 05/01/21 15:53 97.7 F 67 18 121/56 L 96 05/01/21 14:14 97.7 F 75 20 126/60 91 05/01/21 11:09 98.4 F 75 20 118/65 91 05/01/21 07:56 65 PG Care Time/CCT Total # of Minutes Spent Total Time Spent with Patient: Total time spent is greater than 50% in coordination of care (as documented) at patient's floor/unit and/or counseling patient: Coding Level of Care Code 69471 Subseq Hosp Care Lvl 2 Diagnoses Altered mental status R41.82 Altered mental status type: unspecified Peripheral arterial disease I73.9 Osteomyelitis of ankle M86.172 Laterality: left Osteomyelitis type: other acute Unstageable pressure ulcer of heel L89.620 Laterality: left UTI (urinary tract infection) N39.0 Hematuria presence: without hematuria Urinary tract infection type: site unspecified Bilateral leg edema R60.0 Acute heart failure with preserved ejection fraction I50.31 Hypoxia R09.02 Diabetes E11.59 Diabetes mellitus complication detail: with other circulatory complications Diabetes mellitus complication status: with circulatory complication Diabetes mellitus assistant terminal manager insulin use: without [facility] use Diabetes mellitus type: type 2 Atrial flutter I48.92 Atrial flutter type: unspecified Hypothyroid E03.9 Hypothyroidism type: unspecified Hypertension I10 Hypertension type: essential hypertension Esophageal thickening K22.8 Stroke I63.9 CVA mechanism: unspecified DVT prophylaxis Z29.9 (1) UTI (urinary tract infection) Hematuria presence: without hematuria Urinary tract infection type: site unspecified Qualified Code(s): N39.0 - Urinary tract infection, site not specified (2) Unstageable pressure ulcer of heel Laterality: left Qualified Code(s): L89.620 - Pressure ulcer of left heel, unstageable (3) Diabetes Diabetes mellitus complication detail: with other circulatory complications Diabetes mellitus complication status: with circulatory complication Diabetes mellitus assistant terminal manager insulin use: without assistant terminal manager use Diabetes mellitus type: type 2 Qualified Code(s): E11.59 - Type 2 diabetes mellitus with other circulatory complications (4) Atrial flutter Atrial flutter type: unspecified Qualified Code(s): I48.92 - Unspecified atrial flutter (5) Hypothyroid Hypothyroidism type: unspecified Qualified Code(s): E03.9 - Hypothyroidism, unspecified (6) Osteomyelitis of ankle Laterality: left Osteomyelitis type: other acute Qualified Code(s): M86.172 - Other acute osteomyelitis, left ankle and foot (7) Altered mental status Altered mental status type: unspecified Qualified Code(s): R41.82 - Altered mental status, unspecified (8) Hypertension Hypertension type: essential hypertension Qualified Code(s): I10 - Essential (primary) hypertension (9) Stroke CVA mechanism: unspecified Qualified Code(s): I63.9 - Cerebral infarction, unspecified
[2021-05-01] MEDS: TAMSULOSIN HCL 0.4 MG CAP PO SCH (22:06)
[2021-05-01] MEDS: SENNA 8.6 MG TAB PO SCH (22:06)
[2021-05-02] MEDS: LEVOTHYROXINE SODIUM 100 MCG TABLET PO SCH (06:12)
--- NOTE | 2021-05-02 06:45 | Orthopedic Progress Note ---
Date of Service May 02, 2021 Assessment & Plan (1) Pressure ulcer, heel, left, unstageable: Plan: POD #1 s/p Incision and Drainage with debridement of Left Heel Ulcer cont to ice/elevate for swelling will change dressing tomorrow morning remain NWB left foot as per medicine Admission and Anticipated Discharge Date Admission Date: April 23, 2021 Subjective POD #1 s/p Incision and Drainage with debridement of Left Heel Ulcer resting comfortably in bed, sleeping when entering room, denies pain Review of Systems Constitutional: as per Subjective / HPI Physical Exam Physical Exam: Vital Signs Temp Pulse Pulse Pulse Resp BP Pulse Ox 05/02/21 03:00 36.5 C 79 18 121/67 93 05/02/21 01:00 71 05/01/21 23:22 36.9 C 78 20 138/57 L 97 05/01/21 19:00 36.7 C 84 20 118/61 93 05/01/21 18:09 36.6 C 101 H 18 114/69 93 05/01/21 17:35 36.6 C 80 16 106/63 93 05/01/21 17:03 74 05/01/21 17:00 36.5 C 75 16 129/69 93 05/01/21 16:49 36.3 C L 71 16 127/66 97 05/01/21 16:30 37.0 C 68 11 L 123/56 L 98 05/01/21 16:20 37.0 C 68 14 119/53 L 98 05/01/21 16:10 75 13 128/60 98 05/01/21 16:00 73 14 114/56 L 96 05/01/21 15:53 36.5 C 67 18 121/56 L 96 05/01/21 14:14 36.5 C 75 20 126/60 91 05/01/21 11:09 36.9 C 75 20 118/65 91 05/01/21 07:56 65 Intake and Output 05/01/21 05/01/21 05/02/21 14:59 22:59 06:59 Intake Total 70 / 1145 1075 / 1145 Output Total 103 / 303 200 / 303 Balance 70 / 842 972 / 842 -200 / 842 Intake: IV 70 / 520 450 / 520 Sodium Chlorid e 0.9% 1000ML 1, 450 / 450 000 ml @ 100 m ls/hr IV .Q10H [facility] Rx#:[id number] cefTRIAXone SO DIUM 2,000 mg In 70 / 70 Dextrose 5% 50 ml @ 100 mls/hr IV QAM [facility] Rx# :[id number] IV Perioperative 350 / 350 Oral 275 / 275 Output: Urine 100 / 300 200 / 300 Estimated Blood Loss 3 / Other: Other Intake Leigh rce sips Weight 79.4 kg 82.8 kg Weight Measureme nt Method Built in Bedscale Patient Weight 05/02/21 06:59 Weight 82.8 kg Musculoskeletal: left lower leg: dressing is clean and dry, no drainage noted. he is able to wiggle his toes Results & Data ([facility]) Vital Signs (Past 12 Hours) Vital Signs Temp Pulse Pulse Resp BP Pulse Ox 05/02/21 03:00 36.5 C 79 18 121/67 93 05/02/21 01:00 71 05/01/21 23:22 36.9 C 78 20 138/57 L 97 05/01/21 19:00 36.7 C 84 20 118/61 93 Laboratory Results Laboratory Results WBC 5.85 K/uL (4.8-10.8) 04/25/21 08:14 RBC 3.02 M/uL (4.7-6.1) L 04/25/21 08:14 Hgb 9.8 g/dL (14.0-18.0) L 04/25/21 08:14 Hct 29.3 % (42-52) L 04/25/21 08:14 MCV 97.0 fL (80-100) 04/25/21 08:14 MCH 32.5 pg (25-34) 04/25/21 08:14 MCHC 33.4 g/dL (32-36) 04/25/21 08:14 RDW Std Deviation 52.4 fL (36.4-46.3) H 04/25/21 08:14 RDW Coeff of Kylee 14.7 % (11.5-14.5) H 04/25/21 08:14 Plt Count 165 K/uL (130-400) 04/25/21 08:14 MPV 8.9 fL (7.4-10.4) 04/25/21 08:14 Immature Gran % (Auto) 0.3 % 04/25/21 08:14 Neut % (Auto) 70.6 % 04/25/21 08:14 Lymph % (Auto) 11.3 % 04/25/21 08:14 [place] % (Auto) 14.9 % 04/25/21 08:14 Eos % (Auto) 2.7 % 04/25/21 08:14 Baso % (Auto) 0.2 % 04/25/21 08:14 Neut # (Auto) 4.13 K/uL (1.4-6.5) 04/25/21 08:14 Lymph # (Auto) 0.66 K/uL (1.2-3.4) L 04/25/21 08:14 [place] # (Auto) 0.87 K/uL (0.11-0.59) H 04/25/21 08:14 Eos # (Auto) 0.16 K/uL (0-0.5) 04/25/21 08:14 Baso # (Auto) 0.01 K/uL (0-0.2) 04/25/21 08:14 Immature Gran # (Auto) 0.02 K/uL (0.00-0.02) 04/25/21 08:14 ESR 18 mm/hr (0-20) 04/24/21 07:09 PT Cancelled 04/20/21 22:00 INR Cancelled 04/20/21 22:00 APTT Cancelled 04/20/21 22:00 PTT Ratio Cancelled 04/20/21 22:00 Sodium 137 mmol/L (136-145) 04/30/21 06:46 Potassium 4.2 mmol/L (3.5-5.1) 04/30/21 06:46 Chloride 104 mmol/L (98-107) 04/30/21 06:46 Carbon Dioxide 31 mmol/L (21-32) 04/30/21 06:46 Anion Gap 3.0 (3-11) 04/30/21 06:46 BUN 22 mg/dl (7-18) H 04/30/21 06:46 Creatinine 0.70 mg/dl (0.6-1.4) 04/30/21 06:46 Est Cr Clr Drug Dosing 70.6 ml/min 04/30/21 06:46 Est GFR ( Amer) 97.7 ml/min 04/30/21 06:46 Est GFR (Non-Af Amer) 84.3 ml/min 04/30/21 06:46 BUN/Creatinine Ratio 30.8 (10-20) H 04/30/21 06:46 Glucose 124 mg/dl (70-99) H 04/30/21 06:46 POC Glucose 172 mg/dl (70-99) H 05/01/21 20:02 Calcium 7.7 mg/dl (8.5-10.1) L 04/30/21 06:46 Magnesium 1.7 mg/dl (1.8-2.4) L 04/20/21 22:41 Total Bilirubin 0.5 mg/dl (0.2-1) 04/22/21 07:48 Direct Bilirubin 0.2 mg/dl (0-0.2) 04/22/21 07:48 AST 40 U/L (15-37) H 04/22/21 07:48 ALT 25 U/L (12-78) 04/22/21 07:48 Alkaline Phosphatase 67 U/L (45-117) 04/22/21 07:48 Troponin I 0.035 ng/ml (0-0.045) 04/20/21 22:41 C-Reactive Protein 3.41 mg/dl (0-0.29) H 04/24/21 07:09 NT-Pro-B Natriuret Pep 476 pg/ml (0-1800) 04/24/21 07:09 Total Protein 4.8 gm/dl (6.4-8.2) L 04/22/21 07:48 Albumin 2.2 gm/dl (3.4-5.0) L 04/22/21 07:48 Globulin 3.0 gm/dl (2.5-4.0) 04/20/21 22:41 Albumin/Globulin Ratio 0.9 (0.9-2) 04/20/21 22:41 Procalcitonin < 0.05 ng/ml (0-0.5) 04/22/21 07:48 TSH 8.960 uIu/ml (0.300-4.500) H 04/22/21 07:48 Urine Color Dark Yellow 04/21/21 00:10 Urine Appearance Clear (Clear) 04/21/21 00:10 Urine pH 6.0 (4.5-7.5) 04/21/21 00:10 Ur Specific [place] 1.024 (1.000-1.030) 04/21/21 00:10 Urine Protein 1+ (Negative) H 04/21/21 00:10 Urine Glucose (UA) 1+ (Negative) H 04/21/21 00:10 Urine Ketones Trace (Negative) H 04/21/21 00:10 Urine Blood Negative (Negative) 04/21/21 00:10 Urine Nitrite Negative (Negative) 04/21/21 00:10 Urine Bilirubin Negative (Negative) 04/21/21 00:10 Urine Urobilinogen Positive (Negative) H 04/21/21 00:10 Ur Leukocyte Esterase Negative (Negative) 04/21/21 00:10 Urine WBC (Auto) 1-5 /hpf (0-5) 04/21/21 00:10 Urine RBC (Auto) 0-4 /hpf (0-4) 04/21/21 00:10 U Hyaline Cast (Auto) 1-5 /lpf (0-5) 04/21/21 00:10 U Epithel Cells (Auto) 10-20 /lpf (0-5) H 04/21/21 00:10 Urine Bacteria (Auto) 1+ (Negative) H 04/21/21 00:10 Nasal Screen MRSA (PCR) Negative (Negative) 04/21/21 17:53 COVID-19 Eval Order Covid19 at [facility] 04/21/21 03:14 SARS-CoV-2 (PCR) NEGATIVE (Negative) 04/21/21 03:14 Impressions Chest X-Ray 04/20/21 00:00 XR chest 1V portable HISTORY: Shortness of breath. COMPARISON: Chest 03/02/2021. FINDINGS: There are low lung volumes. No pneumothorax. The heart remains enlarged. 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 A few left basilar linear densities favor subsegmental atelectasis or scarring. Trace bilateral pleural effusions. There is mild central pulmonary vascular congestion without overt edema. No new focal lung consolidations to suggest pneumonia. IMPRESSION: Mild central pulmonary vascular congestion without overt edema. Trace bilateral pleural effusions. ACT 112: Negative or not required by law. Electronically signed by: Peña Herrera M.D. 04/21/2021 8:[address] 04/20/21 23:58 CT head/brain wo con CLINICAL HISTORY: eval for new CVA COMPARISON STUDY: February 25, 2021 TECHNIQUE: Axial CT of the brain is performed from the vertex to the skull base. IV contrast was not administered for this examination. A dose lowering technique was utilized adhering to the principles of ALARA. CT DOSE: 1151.75 mGy.cm FINDINGS: No acute intracranial hemorrhage, no midline shift or space occupying lesions seen. Evaluation is slightly limited due to motion and beam hardening artifact. Leal-white matter differentiation is preserved. Redemonstration of mild decrease in attenuation within periventricular white matter which is unchanged since prior study and could represent chronic small vessel ischemia. Diffuse atrophic changes of brain parenchyma are again seen and associated with ex vacuo dilatation of ventricles which is unchanged since recent prior study. There is no acute depressed skull fractures seen. Visualized paranasal sinuses and mastoid air cells are patent and well-aerated. IMPRESSION: 1. No acute intracranial hemorrhage, no midline shift or space occupying lesions. 2. Limited study due to motion and beam hardening artifact. 3. Atrophic changes of brain parenchyma associated with ex vacuo dilatation of ventricles, stable since prior. 4. Chronic small vessel ischemia. ACT 112: Negative or not required by law. The above report was generated using voice recognition software. It may contain grammatical, syntax or spelling errors. Electronically signed by: Steph Villagran DO 04/21/2021 7:35 AM Chest CTA 04/21/21 01:35 CT angio chest PE protocol CT DOSE: 431.96 mGy.cm HISTORY: 86 years-old Male with PE. Acute shortness of breath TECHNIQUE: Multiple CTA images of the chest were obtained after the intravenous administration of 119 ml Optiray. Coronal and sagittal MIPS were obtained from the axial data set and were submitted for review. All measurements were obtained according to NASCET criteria. A dose lowering technique was utilized adhering to the principles of ALARA. COMPARISON: CTA chest 11/10/2016 FINDINGS: CTA: Mild cardiomegaly. No pericardial effusion. Aortic valvular prosthesis. Extensive calcifications of the coronary arteries. Mitral annular calcifications. Atherosclerotic plaque of the thoracic aorta without aneurysm or dissection. Mild descending thoracic aortic tortuosity. The pulmonary arterial tree is opacified to the level of the segmental branches and demonstrates no filling defects to suggest thromboembolic disease. The subsegmental branches are not well visualized secondary to contrast bolus timing. CT CHEST: Unremarkable thyroid. No adenopathy. Small layering pleural effusions. No pneumothorax. Mild pleural thickening of the lung apices. 7 mm subpleural solid nodule of the right lung apex, image 226 is unchanged. Mild intralobular septal thickening. Mild dependent bibasilar consolidative opacities. 10 mm subpleural solid nodule of the right upper lobe on image 207 is new from 2017. 5 mm solid nodule of the right upper lobe on image 216 was also not definitively seen on prior. Mild bronchial wall thickening. Central airways appear patent. No pneumoperitoneum. There is circumferential wall thickening of the upper esophagus. Trace perisplenic free fluid. Unremarkable soft tissues. No acute fracture. Healed chronic right-sided rib fractures. Chronic appearing T4 compression deformity. 25% superior endplate compression deformity at T6 without retropulsion is unchanged. 25% superior compression deformity at T7 with 50% T8 compression deformity, new from comparison. T11 severe compression deformity with 4 mm retropulsion is also new from comparison. IMPRESSION: 1. No pulmonary emboli. 2. Cardiomegaly with mild pulmonary edema and small layering pleural effusions. 3. Mild dependent subsegmental bibasilar atelectasis. 4. There are a few solid nodules noted within the right upper lobe including a subpleural 10 mm solid nodule which is favored to represent scarring. A 3-6 month follow-up chest CT is recommended. 5. Age-indeterminate T7, T8 and T11 compression deformities are new from 2017. Additionally, there is 4 mm retropulsion at T11 without significant central canal stenosis. Correlate with point point tenderness. ACT 112: Negative or not required by law. The above report was generated using voice recognition software. It may contain grammatical, syntax or spelling errors. Electronically signed by: Deandre Ngo M.D. 04/21/2021 8:14 AM Ankle X-Ray 04/22/21 16:59 XR ankle LT min 3V routine CLINICAL HISTORY: unstageable ulcer ?osteomyelitis. Left heel ulcer. COMPARISON STUDY: None. FINDINGS: No acute fracture or dislocation within the left ankle. Vascular calcification is are noted. Deformity within the medial malleolus likely due to an old, healed fracture. Mild degenerative changes at the tibiotalar joint. Diffuse soft tissue swelling within the left lower leg, ankle, and hindfoot. There is a plantar heel spur. Suspect a soft tissue ulceration at the posterior heel. No underlying bony destruction to suggest an osteomyelitis. IMPRESSION: Soft tissue ulcer at the posterior heel. No underlying bony destruction to suggest an osteomyelitis. ACT 112: Negative or not required by law. Electronically signed by: Peña Herrera M.D. 04/22/2021 5:28 PM Ankle MRI 04/23/21 12:39 MR ankle LT wo/w con HISTORY: 86 years-old Male unstageable heel ulcer ?osteomyelitis chronic soft tissue wound of the hindfoot. Clinical concern for osteomyelitis. COMPARISON: Left ankle radiographs 04/22/2021 TECHNIQUE: Multiplanar multisequence MRI of the left ankle was obtained both with and without the use of 8.0 mL Gadavist. FINDINGS: Motion degraded exam. Extensive subcutaneous edema of the lower leg, foot and ankle, most pronounced within the dorsal forefoot. Mild subtalar, tibiotalar and midfoot osteoarthritis. Subcortical cystic changes involve the mid calcaneus with suggestion of a postsurgical linear tract measuring up to 2.5 cm in length. There is a soft tissue wound/ulcer of the posterior heel. No drainable fluid collection. There is a 2.0 cm area of subcortical and periosteal edema involving the posterolateral calcaneus with mild cortical indistinctness best seen on image 33 of series 11 and 12 and also image 19 of series 8. Mild associated enhancement. Bone marrow signal is otherwise within normal limits. Tendinosis of the peroneal, tibialis anterior and posterior tendons. Mild multifocal tenosynovitis. Diffuse muscular atrophy with intramuscular edema suggestive of chronic denervation changes. IMPRESSION: 1. Soft tissue ulcer of the posterior heel. No abscess. 2. Subtle bone marrow changes of the adjacent posterolateral calcaneus are suspicious for developing osteomyelitis. 3. Extensive subcutaneous edema suggestive of cellulitis, venous stasis or lymphedema. 4. Chronic denervation changes. ACT 112: Negative or not required by law. The above report was generated using voice recognition software. It may contain grammatical, syntax or spelling errors. Electronically signed by: Deandre Ngo M.D. 04/23/2021 2:50 PM Duplex Scan Lower Extremity Artery 04/23/21 15:55 ULTRASOUND US arterial duplex LE LT CLINICAL HISTORY: Unstageable heel ulcer ?peripheral artery disease COMPARISON STUDY: None FINDINGS: Real-time as well as Doppler evaluation of the arterial structures of the lower legs was performed. Prominent atherosclerotic plaques are seen throughout left lower extremity arteries and shows increased velocity within distal aspect of the superficial femoral artery and posterior tibialis artery measuring 120 cm/s and 162 cm/s mild consistent with stenosis. No evidence of focal occlusion is seen. Evaluation of blood pressure was not performed due to uncooperative patient and wound dressing. IMPRESSION: 1. There is stenosis within distal aspect of the superficial femoral artery and posterior tibialis artery with velocities as detailed above. No evidence of focal occlusion. Electronically signed by: Steph Villagran DO 04/23/2021 7:58 PM Venous Doppler Study 04/24/21 07:52 BILATERAL LOWER EXTREMITY VENOUS DOPPLER HISTORY: Bilateral leg pain. COMPARISON STUDY: None. FINDINGS: There is normal compressibility, flow, and augmentation within the bilateral lower extremity deep venous systems. IMPRESSION: No DVT within the right or left lower extremity. ACT 112: Negative or not required by law. Electronically signed by: Peña Herrera M.D. 04/24/2021 9:24 AM
[2021-05-02 07:45] LABS: Hematocrit (blood only) 28.8 % (42-52); Hemoglobin 9.4 g/dL (14.0-18.0); Mean Corpuscular Hemoglobin 32.5 pg (25-34); Mean Corpuscular Hgb Conc 32.6 g/dL (32-36); Mean Corpuscular Volume 99.7 fL (80-100); Mean Platelet Volume 8.7 fL (7.4-10.4); Platelet Count 217 K/uL (130-400); RDW Coefficient of Variation 15.6 % (11.5-14.5); RDW Standard Deviation 56.4 fL (36.4-46.3); Red Blood Count 2.89 M/uL (4.7-6.1); White Blood Count 5.67 K/uL (4.8-10.8)
[2021-05-02 08:15] LABS: BUN Creatinine Ratio 34.8 (10-20); Calcium 7.9 mg/dl (8.5-10.1); Creatinine Clr Calc Pharmacy 78.8 ml/min; Est GFR (African American) 98.8 ml/min; Est GFR (Non-African American) 85.3 ml/min; Potassium 4.3 mmol/L (3.5-5.1)
[2021-05-02] MEDS: FAMOTIDINE 40 MG TABLET PO SCH (08:58)
[2021-05-02] MEDS: DOCUSATE SODIUM/SENNA 50/8.6MG TAB PO SCH (08:58)
[2021-05-02] MEDS: DOCUSATE SODIUM 100 MG CAP PO SCH ×4 (08:58→20:20)
[2021-05-02] MEDS: CLOPIDOGREL BISULFATE 75 MG TAB PO SCH (08:59)
[2021-05-02] MEDS: MULTIVITAMIN TAB PO SCH (08:59)
[2021-05-02] MEDS: dilTIAZem HCL 240 MG CAPCR PO SCH (08:59)
[2021-05-02] MEDS: FUROSEMIDE 40 MG TAB PO SCH (08:59)
[2021-05-02] MEDS: ROSUVASTATIN CALCIUM 20 MG TAB PO SCH (08:59)
[2021-05-02] MEDS: INSULIN ASPART 100 UNITS/ML 3 ML PEN SC SCH ×4 (09:00→20:32)
[2021-05-02] MEDS: cefTRIAXone SODIUM 2,000 MG in DEXTROSE 5% 50 ML IV SCH (09:17)
[2021-05-02] MEDS: ENOXAPARIN INJ 40 MG/0.4 ML SYR SQ SCH (10:00)
--- NOTE | 2021-05-02 10:52 | Pharmacy Report ---
Pharmacy Glycemic Short Note 2 - Date of Service May 02, 2021 - Glycemic Short BSG Results (Last 24 hours): 05/01/21 05/01/21 05/01/21 11:45 17:30 20:02 Glucose POC Glucose 176 H 119 H 172 H 05/02/21 05/02/21 07:21 07:44 Glucose 128 H POC Glucose 134 H OUTPATIENT ANTIDIABETIC REGIMEN: * metformin 1000 mg PO BID * pioglitazone 30 mg PO daily * A1c = 7.4% ASSESSMENT: 05/02/21: * POD1 I&D Left heel ulcer. * Fasting BSG is at goal, Lantus discontinued on transfer, resume 9 units daily now * No other changes at this time 04/30/21: * Fasting BSG is at goal. I will reduce Lantus dose for 05/01 AM due to NPO for L heel I&D. * Post prandial BSGs fluctuate. Lunch tends to be the highest BSG of the day, therefore I will tighten carb coverage with breakfast only. 04/28/21: * Patient received a total of 35 units of insulin yesterday * 8 units of basal * 27 units of bolus * BSGs ranged from 81 -254 mg/dL * Fasting BSG of 162 mg/dL is above goal. Lantus was slightly decreased on 04/27 due to fasting BSG below goal. May need to increase if trend continues. Partial dose given today for NPO. * Lunch BSG elevated today despite NPO status. Will tighten correctional insuli n. 04/26/21 * Patient's BSGs yesterday were elevated - [phone] mg/dL. Fasting BSG today is 177 mg/dL. * Patient received 23 units of insulin yesterday which were all bolus. * Start Lantus again but give 10 units today since fasting extremely elevated. * Tighten Novolog for now until Lantus is onboard then can loosen. 04/25/21 * Patient is currently receiving an average of 22 units of insulin per day * 7 units of basal insulin * 15 units of prandial/correctional insulin * BSGs ranging 132- 246 over the past 24hrs * Risk factors for insulin resistance are constant over the past 24hrs * Anticipating insulin regimen will need decreased for the next 24hrs d/t : * AM Fasting BSG = 99 therefore Basal insulin will be stopped due to decreased fasting (132 mg/dL to 99 mg/dL). May be resumed tomorrow at lower dose depending on fasting. * Once carbohydrate ratio was added, BSGs trended downwards throughout the day. Since basal insulin removed, will tighten CF/CR slightly to provide for coverage * Total daily dose = ~15-20 units/day PLAN FOR INPATIENT GLYCEMIC CONTROL: * Hold outpatient oral diabetes medications * Basal insulin * Resume Lantus 9 units SQ daily * Bolus insulin * NovoLog per scale ACHS or Q6hrs while NPO * Goal Range: Low 110 mg/dL - High 140 mg/dL * Correction Factor: 20 mg/dL/unit * Nutritional / Prandial insulin per carb ratio of 1 unit per 5 grams CHO consumed PLAN FOR DISCHARGE: * A1c at goal
[2021-05-02] MEDS ORDERED: INSULIN GLARGINE SOLOSTAR 100 UNITS/ML 3 ML PEN SC ONE (11:00)
--- NOTE | 2021-05-02 15:58 | Hospitalist Progress Note ---
Date of Service May 02, 2021 Assessment & Plan (1) Altered mental status: Plan: Altered mental status: Encephalopathy, metabolic, secondary to diabetic foot infection resolved. diabetic foot infection significant improvement with IV ceftriaxone started 04/21 for suspected UTI. Blood cultures taken after antibiotics started due to GPC growing in urine culture. Now urine culture growing gamma strep, not enterococcus. MRI left ankle - possible osteomyelitis, procalcitonin negative. Ortho consulted recommending non urgent debridement after revascularization, revascularization not indicated per vascular surg, 05/01/21 Incision and Drainage abscess left heel, Irrigation and debridement of Left Heel Ulcer 5 cm x 5 cm x 0.6 cm, debridement of skin, subcutaneous fat, fascia and periosteum (Left) - Dustin London, DO Final dressing to be determined by orthopedics (2) Peripheral arterial disease: Plan: Noted on US arterial doppler, vascular surgery consult - angiography 04/28 Ant and post tibial arteries are occluded. Peroneal is patent to the ankle. Distal anterior tibial artery reconstitutes just above the ankle and supplies the DP, No intervention required. 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 Continue IV ceftriaxone pending ID consult recommends bone biospy for further guidance on antibiotics (4) Unstageable pressure ulcer of heel: Plan: Appreciate wound care management. No surrounding cellulitis. MRI suggestive of early osteomyelitis (see above) Blood culture negative (5) UTI (urinary tract infection): Plan: gamma strep not enterococcus, treated with ceftriaxone (6) Bilateral leg edema: Plan: Improving with lasix 40mg daily hold Lasix at this time Suspect heel infection causing worsened swelling of left side. Low Na diet, will not fluid restrict at the present time I&Os Daily weights 90.9 -> 81.6kg US venous doppler negative for DVT (7) Acute heart failure with preserved ejection fraction: (8) Hypoxia: Plan: Present on admission. Now resolved. Suspect secondary to aspiration in setting of altered mental state given quick resolution on admission Continue to monitor respiratory status Aim O2 sats > 90%, similar to prior discharge Aspiration precautions Known silent aspirations but risk feeding due to poor nutritional status on thickened fluids (9) Diabetes: Plan: Chronic. Well-controlled. Last A1c = 7.4 Hold oral agents, pioglitazone and Metformin Consult glycemic control given current poor control (10) Atrial flutter: Plan: Postoperative atrial flutter and atrial fibrillation with no documented recurrence on an event recorder, May,. Given peripheral artery disease will place on monitor to assess for recurrence Continue diltiazem 240 mg daily (11) Hypothyroid: Plan: Chronic. 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 every morning Continue Plavix 75 mg p.o. every morning (15) DVT prophylaxis: Plan: Lovenox subcu for DVT prevention full code Admission and Anticipated Discharge Date Admission Date: April 23, 2021 Subjective Patient is sleepy today but responsive complaining of some pain in his foot no other focal complaints or problems I personally met with a surgeon to discuss the dressings his final wound dressing is yet to be determined Review of Systems Review of Systems: he patient appeared thin but appropriately nourished Vital signs as documented. Head exam is normocephalic atraumatic Neck is without JVD, thyromegaly, or carotid bruits. Lungs are clear to auscultation, no focal loss of breath sounds Cardiac exam, Rhythm is regular. shrill systolic murmur Abdominal exam reveals normal bowel sounds, soft non tender, no masses Extremities are nonedematous diminished pulses and cap refill L>R Neurologic exam is alert and oriented, does have gross loss of distal sensation to feet His left heel has a dressing in place surgeries to remove today 05/02 Psychologically is without concerns for anxiety or depression Physical Exam Physical Exam: he patient appeared thin but appropriately nourished Vital signs as documented. Head exam is normocephalic atraumatic Neck is without JVD, thyromegaly, or carotid bruits. Lungs are clear to auscultation, no focal loss of breath sounds Cardiac exam, Rhythm is regular. shrill systolic murmur Abdominal exam reveals normal bowel sounds, soft non tender, no masses Extremities are nonedematous diminished pulses and cap refill L>R Neurologic exam is alert and oriented, does have gross loss of distal sensation to feet Skin is with left heel skin defect, orthopedic surgery to determine final dressing Psychologically is without concerns for anxiety or depression Results & Data Results & Data ([facility]) Vital Signs (Past 12 Hours) Vital Signs Temp Pulse Pulse Resp BP Pulse Ox 05/02/21 15:50 82 05/02/21 15:30 98.2 F 86 20 100/59 L 92 05/02/21 12:00 98.2 F 75 20 112/70 94 05/02/21 08:00 98.2 F 78 20 116/67 91 05/02/21 07:35 67 PG Care Time/CCT Total # of Minutes Spent Total Time Spent with Patient: Total time spent is greater than 50% in coordination of care (as documented) at patient's floor/unit and/or counseling patient: Coding Level of Care Code 72306 Subseq Hosp Care Lvl 2 Diagnoses Altered mental status R41.82 Altered mental status type: unspecified Peripheral arterial disease I73.9 Osteomyelitis of ankle M86.172 Osteomyelitis type: other acute Laterality: left Unstageable pressure ulcer of heel L89.620 Laterality: left UTI (urinary tract infection) N39.0 Urinary tract infection type: site unspecified Hematuria presence: without hematuria Bilateral leg edema R60.0 Acute heart failure with preserved ejection fraction I50.31 Hypoxia R09.02 Diabetes E11.59 Diabetes mellitus type: type 2 Diabetes mellitus jail insulin use: without shear tender use Diabetes mellitus complication status: with circulatory complication Diabetes mellitus complication detail: with other circulatory complications Atrial flutter I48.92 Atrial flutter type: unspecified Hypothyroid E03.9 Hypothyroidism type: unspecified Hypertension I10 Hypertension type: essential hypertension Esophageal thickening K22.8 Stroke I63.9 CVA mechanism: unspecified DVT prophylaxis Z29.9 (1) Altered mental status Altered mental status type: unspecified Qualified Code(s): R41.82 - Altered mental status, unspecified (2) Osteomyelitis of ankle Osteomyelitis type: other acute Laterality: left Qualified Code(s): M86.172 - Other acute osteomyelitis, left ankle and foot (3) Unstageable pressure ulcer of heel Laterality: left Qualified Code(s): L89.620 - Pressure ulcer of left heel, unstageable (4) UTI (urinary tract infection) Urinary tract infection type: site unspecified Hematuria presence: without hematuria Qualified Code(s): N39.0 - Urinary tract infection, site not specified (5) Diabetes Diabetes mellitus type: type 2 Diabetes mellitus shear tender insulin use: without jail use Diabetes mellitus complication status: with circulatory complication Diabetes mellitus complication detail: with other circulatory complications Qualified Code(s): E11.59 - Type 2 diabetes mellitus with other circulatory complications (6) Atrial flutter Atrial flutter type: unspecified Qualified Code(s): I48.92 - Unspecified atrial flutter (7) Hypothyroid Hypothyroidism type: unspecified Qualified Code(s): E03.9 - Hypothyroidism, unspecified (8) Hypertension Hypertension type: essential hypertension Qualified Code(s): I10 - Essential (primary) hypertension (9) Stroke CVA mechanism: unspecified Qualified Code(s): I63.9 - Cerebral infarction, unspecified
[2021-05-02] MEDS: ACETAMINOPHEN 325 MG TAB PO PRN (20:14)
[2021-05-02] MEDS: TAMSULOSIN HCL 0.4 MG CAP PO SCH (20:15)
[2021-05-02] MEDS: SENNA 8.6 MG TAB PO SCH (20:16)
[2021-05-03] MEDS: LEVOTHYROXINE SODIUM 100 MCG TABLET PO SCH (06:19)
--- NOTE | 2021-05-03 07:04 | Orthopedic Progress Note ---
Date of Service May 03, 2021 Assessment & Plan (1) Pressure ulcer, heel, left, unstageable: Plan: POD #2 s/p Incision and Drainage with debridement of Left Heel Ulcer cont to ice/elevate for swelling dressing changed this am using adaptec, 4x4, ABD and shannon. remain NWB left foot as per medicine Admission and Anticipated Discharge Date Admission Date: April 23, 2021 Subjective POD #2 s/p Left heel incision and drainage of abscess, left plantar heel, Irrigation and debridement of heel ulcer measuring 5 cm x 5 cm x 0.6 cm, Debridement of skin, subcutaneous fat, fascia and periosteum of the left heel. Review of Systems Constitutional: no fever and no chills Cardiovascular: no chest pain, no dyspnea and no orthopnea Physical Exam Physical Exam: Vital Signs Temp Pulse Pulse Resp BP Pulse Ox 05/03/21 02:50 37.1 C 76 18 131/69 90 05/03/21 00:00 83 05/02/21 22:11 37.2 C 78 18 126/64 91 05/02/21 19:49 36.5 C 91 H 20 123/73 94 05/02/21 15:50 82 05/02/21 15:30 36.8 C 86 20 100/59 L 92 05/02/21 12:00 36.8 C 75 20 112/70 94 05/02/21 08:00 36.8 C 78 20 116/67 91 05/02/21 07:35 67 Intake and Output 05/02/21 05/03/21 05/03/21 22:59 06:59 14:59 Intake Total 360 / 1025 Output Total 200 / 850 Balance 360 / 175 -200 / 175 Intake: Oral 360 / 955 Output: Urine 200 / 850 Other: Other Intake Leigh rce sips # Unmeasured Voi ds 1 1 Weight 79.1 kg Weight Measureme nt Method [facility] Musculoskeletal: Left Leg: ankle and toes are mobile. calf is soft and nontender. dressing is removed, left heel ulcer with overlying eschar, well demarcated edges. there is no erythema or drainage noted. Results & Data ([facility]) Vital Signs (Past 12 Hours) Vital Signs Temp Pulse Pulse Resp BP Pulse Ox 05/03/21 02:50 37.1 C 76 18 131/69 90 05/03/21 00:00 83 05/02/21 22:11 37.2 C 78 18 126/64 91 05/02/21 19:49 36.5 C 91 H 20 123/73 94
--- NOTE | 2021-05-03 07:15 | Hospitalist Progress Note ---
Date of Service May 03, 2021 Assessment & Plan (1) Altered mental status: Plan: Altered mental status: Resolved Encephalopathy, metabolic, secondary to diabetic foot infection diabetic foot infection significant improvement with IV ceftriaxone started 04/21 for suspected UTI. Blood cultures taken after antibiotics started due to GPC growing in urine culture. Now urine culture growing gamma strep, not enterococcus. MRI left ankle - possible osteomyelitis, procalcitonin negative. Ortho consulted recommending non urgent debridement after revascularization, revascularization not indicated per vascular surg, 05/01/21 Incision and Drainage abscess left heel, Irrigation and debridement of Left Heel Ulcer 5 cm x 5 cm x 0.6 cm, debridement of skin, subcutaneous fat, fascia and periosteum (Left) - Dustin London, DO Final dressing to be determined by orthopedics (2) Peripheral arterial disease: Plan: Noted on US arterial doppler, vascular surgery consult - angiography 04/28 Ant and post tibial arteries are occluded. Peroneal is patent to the ankle. Distal anterior tibial artery reconstitutes just above the ankle and supplies the DP, No intervention required. 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 Continue IV ceftriaxone pending ID consult recommends bone biospy for further guidance on antibiotics (4) Unstageable pressure ulcer of heel: Plan: Appreciate wound care management. No surrounding cellulitis. MRI suggestive of early osteomyelitis (see above) Blood culture negative (5) UTI (urinary tract infection): Plan: gamma strep not enterococcus, treated with ceftriaxone (6) Bilateral leg edema: Plan: Improved with lasix 40mg daily hold Lasix at this time Suspect heel infection causing worsened swelling of left side. Low Na diet, will not fluid restrict at the present time I&Os Daily weights 90.9 -> 81.6kg US venous doppler negative for DVT (7) Acute heart failure with preserved ejection fraction: Plan: REsolved (8) Hypoxia: Plan: Present on admission. Now resolved. Suspect secondary to aspiration in setting of altered mental state given quick resolution on admission Continue to monitor respiratory status Aim O2 sats > 90%, similar to prior discharge Aspiration precautions Known silent aspirations but risk feeding due to poor nutritional status on thickened fluids (9) Diabetes: Plan: Chronic. Well-controlled. Last A1c = 7.4 Hold oral agents, pioglitazone and Metformin Consult glycemic control given current poor control (10) Atrial flutter: Plan: Postoperative atrial flutter and atrial fibrillation with no documented recurrence on an event recorder, May,. Given peripheral artery disease will place on monitor to assess for recurrence Continue diltiazem 240 mg daily (11) Hypothyroid: Plan: Chronic. 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 every morning Continue Plavix 75 mg p.o. every morning (15) DVT prophylaxis: Plan: Lovenox subcu for DVT prevention full code Admission and Anticipated Discharge Date Admission Date: April 23, 2021 Subjective the pt is doing well, heel is still with post op state, not defined dressing, will discuss if may need subacute rehab Review of Systems Review of Systems: he patient appeared thin but appropriately nourished Vital signs as documented. Head exam is normocephalic atraumatic Neck is without JVD, thyromegaly, or carotid bruits. Lungs are clear to auscultation, no focal loss of breath sounds Cardiac exam, Rhythm is regular. shrill systolic murmur Abdominal exam reveals normal bowel sounds, soft non tender, no masses Extremities are nonedematous diminished pulses and cap refill L>R Neurologic exam is alert and oriented, does have gross loss of distal sensation to feet His left heel has a dressing in place surgeries to remove today 05/02 Psychologically is without concerns for anxiety or depression Physical Exam Physical Exam: he patient appeared thin but appropriately nourished Vital signs as documented. Head exam is normocephalic atraumatic Neck is without JVD, thyromegaly, or carotid bruits. Lungs are clear to auscultation, no focal loss of breath sounds Cardiac exam, Rhythm is regular. shrill systolic murmur Abdominal exam reveals normal bowel sounds, soft non tender, no masses Extremities are nonedematous diminished pulses and cap refill L>R Neurologic exam is alert and oriented, does have gross loss of distal sensation to feet Skin is with left heel skin defect, orthopedic surgery to determine final dressing Psychologically is without concerns for anxiety or depression Results & Data Results & Data ([facility]) Vital Signs (Past 12 Hours) Vital Signs Temp Pulse Pulse Resp BP Pulse Ox 05/03/21 02:50 98.8 F 76 18 131/69 90 05/03/21 00:00 83 05/02/21 22:11 99.0 F 78 18 126/64 91 05/02/21 19:49 97.7 F 91 H 20 123/73 94 PG Care Time/CCT Total # of Minutes Spent Total Time Spent with Patient: Total time spent is greater than 50% in coordination of care (as documented) at patient's floor/unit and/or counseling patient: Coding Level of Care Code 39350 Subseq Hosp Care Lvl 2 Diagnoses Altered mental status R41.82 Altered mental status type: unspecified Peripheral arterial disease I73.9 Osteomyelitis of ankle M86.172 Laterality: left Osteomyelitis type: other acute Unstageable pressure ulcer of heel L89.620 Laterality: left UTI (urinary tract infection) N39.0 Hematuria presence: without hematuria Urinary tract infection type: site unspecified Bilateral leg edema R60.0 Acute heart failure with preserved ejection fraction I50.31 Hypoxia R09.02 Diabetes E11.59 Diabetes mellitus complication detail: with other circulatory complications Diabetes mellitus complication status: with circulatory complication Diabetes mellitus terminal gauger insulin use: without terminal gauger use Diabetes mellitus type: type 2 Atrial flutter I48.92 Atrial flutter type: unspecified Hypothyroid E03.9 Hypothyroidism type: unspecified Hypertension I10 Hypertension type: essential hypertension Esophageal thickening K22.8 Stroke I63.9 CVA mechanism: unspecified DVT prophylaxis Z29.9 (1) UTI (urinary tract infection) Hematuria presence: without hematuria Urinary tract infection type: site unspecified Qualified Code(s): N39.0 - Urinary tract infection, site not specified (2) Unstageable pressure ulcer of heel Laterality: left Qualified Code(s): L89.620 - Pressure ulcer of left heel, unstageable (3) Diabetes Diabetes mellitus complication detail: with other circulatory complications Diabetes mellitus complication status: with circulatory complication Diabetes mellitus custodial insulin use: without custodial use Diabetes mellitus type: type 2 Qualified Code(s): E11.59 - Type 2 diabetes mellitus with other circulatory complications (4) Atrial flutter Atrial flutter type: unspecified Qualified Code(s): I48.92 - Unspecified atrial flutter (5) Hypothyroid Hypothyroidism type: unspecified Qualified Code(s): E03.9 - Hypothyroidism, unspecified (6) Osteomyelitis of ankle Laterality: left Osteomyelitis type: other acute Qualified Code(s): M86.172 - Other acute osteomyelitis, left ankle and foot (7) Altered mental status Altered mental status type: unspecified Qualified Code(s): R41.82 - Altered mental status, unspecified (8) Hypertension Hypertension type: essential hypertension Qualified Code(s): I10 - Essential (primary) hypertension (9) Stroke CVA mechanism: unspecified Qualified Code(s): I63.9 - Cerebral infarction, unspecified
[2021-05-03] MEDS: CLOPIDOGREL BISULFATE 75 MG TAB PO SCH (08:40)
[2021-05-03] MEDS: DOCUSATE SODIUM 100 MG CAP PO SCH ×4 (08:40→20:38)
[2021-05-03] MEDS: dilTIAZem HCL 240 MG CAPCR PO SCH (08:40)
[2021-05-03] MEDS: ROSUVASTATIN CALCIUM 20 MG TAB PO SCH (08:40)
[2021-05-03] MEDS: DOCUSATE SODIUM/SENNA 50/8.6MG TAB PO SCH (08:40)
[2021-05-03] MEDS: FAMOTIDINE 40 MG TABLET PO SCH (08:40)
[2021-05-03] MEDS: MULTIVITAMIN TAB PO SCH (08:41)
[2021-05-03] MEDS: ENOXAPARIN INJ 40 MG/0.4 ML SYR SQ SCH (08:41)
[2021-05-03] MEDS: INSULIN GLARGINE SOLOSTAR 100 UNITS/ML 3 ML PEN SC SCH (08:41)
[2021-05-03] MEDS: INSULIN ASPART 100 UNITS/ML 3 ML PEN SC SCH ×4 (08:42→20:39)
[2021-05-03] MEDS: cefTRIAXone SODIUM 2,000 MG in DEXTROSE 5% 50 ML IV SCH (09:05)
--- NOTE | 2021-05-03 14:51 | Pharmacy Report ---
Pharmacy Glycemic Short Note 2 - Date of Service May 03, 2021 - Glycemic Short BSG Results (Last 24 hours): 05/02/21 05/02/21 05/03/21 17:08 20:23 07:33 POC Glucose 134 H 72 110 H 05/03/21 11:44 POC Glucose 216 H OUTPATIENT ANTIDIABETIC REGIMEN: * metformin 1000 mg PO BID * pioglitazone 30 mg PO daily * A1c = 7.4% ASSESSMENT: 05/03/21: * Blood sugars at goal except pre lunch, blood sugar consistently rising: today 110-->216mg/dl and yesterday 134-->239mg/dl * Tighten CR with breakfast * Fasting BSG 110mg/dl - no change with Lantus at this time * Likely DC to [facility] tomorrow 05/02/21: * POD1 I&D Left heel ulcer. * Fasting BSG is at goal, Lantus discontinued on transfer, resume 9 units daily now * No other changes at this time 04/30/21: * Fasting BSG is at goal. I will reduce Lantus dose for 05/01 AM due to NPO for L heel I&D. * Post prandial BSGs fluctuate. Lunch tends to be the highest BSG of the day, therefore I will tighten carb coverage with breakfast only. 04/28/21: * Patient received a total of 35 units of insulin yesterday * 8 units of basal * 27 units of bolus * BSGs ranged from 81 -254 mg/dL * Fasting BSG of 162 mg/dL is above goal. Lantus was slightly decreased on 04/27 due to fasting BSG below goal. May need to increase if trend continues. Partial dose given today for NPO. * Lunch BSG elevated today despite NPO status. Will tighten correctional insulin. 04/26/21 * Patient's BSGs yesterday were elevated - 70-144-555-273 mg/dL. Fasting BSG today is 177 mg/dL. * Patient received 23 units of insulin yesterday which were all bolus. * Start Lantus again but give 10 units today since fasting extremely elevated. * Tighten Novolog for now until Lantus is onboard then can loosen. 04/25/21 * Patient is currently receiving an average of 22 units of insulin per day * 7 units of basal insulin * 15 units of prandial/correctional insulin * BSGs ranging 132- 246 over the past 24hrs * Risk factors for insulin resistance are constant over the past 24hrs * Anticipating insulin regimen will need decreased for the next 24hrs d/t : * AM Fasting BSG = 99 therefore Basal insulin will be stopped due to decreased fasting (132 mg/dL to 99 mg/dL). May be resumed tomorrow at lower dose depending on fasting. * Once carbohydrate ratio was added, BSGs trended downwards throughout the day. Since basal insulin removed, will tighten CF/CR slightly to provide for coverage * Total daily dose = ~15-20 units/day PLAN FOR INPATIENT GLYCEMIC CONTROL: * Hold outpatient oral diabetes medications * Basal insulin * Lantus 9 units SQ daily * Bolus insulin * NovoLog per scale ACHS or Q6hrs while NPO * Goal Range: Low 110 mg/dL - High 140 mg/dL * Correction Factor: 20 mg/dL/unit Breakfast: * Nutritional / Prandial insulin per carb ratio of 1 unit per 3.5 grams CHO consumed Lunch/Dinner/HS * Nutritional / Prandial insulin per carb ratio of 1 unit per 5 grams CHO consumed PLAN FOR DISCHARGE: * A1c at goal for patient's age and co-morbidities
[2021-05-03] MEDS: SENNA 8.6 MG TAB PO SCH (20:38)
[2021-05-03] MEDS: TAMSULOSIN HCL 0.4 MG CAP PO SCH (20:38)
[2021-05-04] MEDS: LEVOTHYROXINE SODIUM 100 MCG TABLET PO SCH (05:43)
[2021-05-04 06:49] LABS: Hematocrit (blood only) 30.6 % (42-52); Hemoglobin 9.9 g/dL (14.0-18.0); Mean Corpuscular Hgb Conc 32.4 g/dL (32-36); Mean Platelet Volume 8.7 fL (7.4-10.4); Platelet Count 217 K/uL (130-400); RDW Coefficient of Variation 16.2 % (11.5-14.5); RDW Standard Deviation 57.7 fL (36.4-46.3); Red Blood Count 3.09 M/uL (4.7-6.1); White Blood Count 5.98 K/uL (4.8-10.8)
[2021-05-04 07:22] LABS: BUN Creatinine Ratio 33.2 (10-20); Calcium 7.9 mg/dl (8.5-10.1); Creatinine Clr Calc Pharmacy 63.3 ml/min; Est GFR (African American) 93.4 ml/min; Est GFR (Non-African American) 80.6 ml/min; Potassium 4.4 mmol/L (3.5-5.1)
[2021-05-04] MEDS: INSULIN ASPART 100 UNITS/ML 3 ML PEN SC SCH ×4 (09:06→20:29)
[2021-05-04] MEDS: CLOPIDOGREL BISULFATE 75 MG TAB PO SCH (09:08)
[2021-05-04] MEDS: DOCUSATE SODIUM 100 MG CAP PO SCH ×4 (09:09→20:29)
[2021-05-04] MEDS: dilTIAZem HCL 240 MG CAPCR PO SCH (09:09)
[2021-05-04] MEDS: INSULIN GLARGINE SOLOSTAR 100 UNITS/ML 3 ML PEN SC SCH (09:11)
[2021-05-04] MEDS: FAMOTIDINE 40 MG TABLET PO SCH (09:11)
[2021-05-04] MEDS: MULTIVITAMIN TAB PO SCH (09:12)
[2021-05-04] MEDS: DOCUSATE SODIUM/SENNA 50/8.6MG TAB PO SCH (09:12)
[2021-05-04] MEDS: ROSUVASTATIN CALCIUM 20 MG TAB PO SCH (09:12)
[2021-05-04] MEDS: cefTRIAXone SODIUM 2,000 MG in DEXTROSE 5% 50 ML IV SCH (09:19)
[2021-05-04] MEDS: ENOXAPARIN INJ 40 MG/0.4 ML SYR SQ SCH (09:19)
--- NOTE | 2021-05-04 14:18 | Hospitalist Progress Note ---
Date of Service May 04, 2021 Assessment & Plan (1) Altered mental status: Plan: Altered mental status: Resolved Encephalopathy, metabolic, secondary to diabetic foot infection diabetic foot infection significant improvement with IV ceftriaxone started 04/21 for suspected UTI. Blood cultures taken after antibiotics started due to GPC growing in urine culture. Now urine culture growing gamma strep, not enterococcus. MRI left ankle - possible osteomyelitis, procalcitonin negative. Ortho consulted recommending non urgent debridement after revascularization, revascularization not indicated per vascular surg, 05/01/21 Incision and Drainage abscess left heel, Irrigation and debridement of Left Heel Ulcer 5 cm x 5 cm x 0.6 cm, debridement of skin, subcutaneous fat, fascia and periosteum (Left) - Dustin London, DO Final dressing to be determined by orthopedics some increased confusion, will check urine, cxr on 05/04/21 , intra operative cultures are without results (2) Peripheral arterial disease: Plan: Noted on US arterial doppler, vascular surgery consult - angiography 04/28 Ant and post tibial arteries are occluded. Peroneal is patent to the ankle. Distal anterior tibial artery reconstitutes just above the ankle and supplies the DP, No intervention required. 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 Continue IV ceftriaxone pending ID consult recommends bone biospy for further guidance on antibiotics (4) Unstageable pressure ulcer of heel: Plan: Appreciate wound care management. No surrounding cellulitis. MRI suggestive of early osteomyelitis (see above) Blood culture negative (5) UTI (urinary tract infection): Plan: gamma strep not enterococcus, treated with ceftriaxone (6) Bilateral leg edema: Plan: Improved with lasix 40mg daily hold Lasix at this time Suspect heel infection causing worsened swelling of left side. Low Na diet, will not fluid restrict at the present time I&Os Daily weights 90.9 -> 81.6kg US venous doppler negative for DVT (7) Acute heart failure with preserved ejection fraction: Plan: REsolved (8) Hypoxia: Plan: Present on admission. Now resolved. Suspect secondary to aspiration in setting of altered mental state given quick resolution on admission Continue to monitor respiratory status Aim O2 sats > 90%, similar to prior discharge Aspiration precautions Known silent aspirations but risk feeding due to poor nutritional status on thickened fluids (9) Diabetes: Plan: Chronic. Well-controlled. Last A1c = 7.4 Hold oral agents, pioglitazone and Metformin Consult glycemic control given current poor control (10) Atrial flutter: Plan: Postoperative atrial flutter and atrial fibrillation with no documented recurrence on an event recorder, May,. Given peripheral artery disease will place on monitor to assess for recurrence Continue diltiazem 240 mg daily (11) Hypothyroid: Plan: Chronic. 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 every morning Continue Plavix 75 mg p.o. every morning (15) DVT prophylaxis: Plan: Lovenox subcu for DVT prevention full code Admission and Anticipated Discharge Date Admission Date: April 23, 2021 Subjective the pt is doing well, pleasantly confused may need subacute rehab Review of Systems Review of Systems: he patient appeared thin but appropriately nourished Vital signs as documented. Head exam is normocephalic atraumatic Neck is without JVD, thyromegaly, or carotid bruits. Lungs are clear to auscultation, no focal loss of breath sounds Cardiac exam, Rhythm is regular. shrill systolic murmur Abdominal exam reveals normal bowel sounds, soft non tender, no masses Extremities are nonedematous diminished pulses and cap refill L>R Neurologic exam is alert and oriented, does have gross loss of distal sensation to feet His left heel has a dressing in place surgeries to remove today 05/02 Psychologically is without concerns for anxiety or depression Physical Exam Physical Exam: he patient appeared thin but appropriately nourished Vital signs as documented. Head exam is normocephalic atraumatic Neck is without JVD, thyromegaly, or carotid bruits. Lungs are clear to auscultation, no focal loss of breath sounds Cardiac exam, Rhythm is regular. shrill systolic murmur Abdominal exam reveals normal bowel sounds, soft non tender, no masses Extremities are nonedematous diminished pulses and cap refill L>R Neurologic exam is alert and oriented, does have gross loss of distal sensation to feet Skin is with left heel skin defect, orthopedic surgery to determine final dressing Psychologically is without concerns for anxiety or depression Results & Data Results & Data ([facility]) Vital Signs (Past 12 Hours) Vital Signs Temp Pulse Pulse Resp BP Pulse Ox 05/04/21 12:12 98.2 F 76 20 143/76 H 96 05/04/21 12:07 62 05/04/21 07:00 97.2 F L 80 22 163/71 H 98 05/04/21 03:44 97.7 F 72 20 132/69 96 PG Care Time/CCT Total # of Minutes Spent Total Time Spent with Patient: Total time spent is greater than 50% in coordination of care (as documented) at patient's floor/unit and/or counseling patient: Coding Level of Care Code 50141 Subseq Hosp Care Lvl 3 Diagnoses Altered mental status R41.82 Altered mental status type: unspecified Peripheral arterial disease I73.9 Osteomyelitis of ankle M86.172 Osteomyelitis type: other acute Laterality: left Unstageable pressure ulcer of heel L89.620 Laterality: left UTI (urinary tract infection) N39.0 Urinary tract infection type: site unspecified Hematuria presence: without hematuria Bilateral leg edema R60.0 Acute heart failure with preserved ejection fraction I50.31 Hypoxia R09.02 Diabetes E11.59 Diabetes mellitus type: type 2 Diabetes mellitus halfway insulin use: without halfway use Diabetes mellitus complication status: with circulatory complication Diabetes mellitus complication detail: with other circulatory complications Atrial flutter I48.92 Atrial flutter type: unspecified Hypothyroid E03.9 Hypothyroidism type: unspecified Hypertension I10 Hypertension type: essential hypertension Esophageal thickening K22.8 Stroke I63.9 CVA mechanism: unspecified DVT prophylaxis Z29.9 (1) Altered mental status Altered mental status type: unspecified Qualified Code(s): R41.82 - Altered mental status, unspecified (2) Osteomyelitis of ankle Osteomyelitis type: other acute Laterality: left Qualified Code(s): M86.172 - Other acute osteomyelitis, left ankle and foot (3) Unstageable pressure ulcer of heel Laterality: left Qualified Code(s): L89.620 - Pressure ulcer of left heel, unstageable (4) UTI (urinary tract infection) Urinary tract infection type: site unspecified Hematuria presence: without hematuria Qualified Code(s): N39.0 - Urinary tract infection, site not specified (5) Diabetes Diabetes mellitus type: type 2 Diabetes mellitus termite helper insulin use: without termite helper use Diabetes mellitus complication status: with circulatory complication Diabetes mellitus complication detail: with other circulatory complications Qualified Code(s): E11.59 - Type 2 diabetes mellitus with other circulatory complications (6) Atrial flutter Atrial flutter type: unspecified Qualified Code(s): I48.92 - Unspecified atrial flutter (7) Hypothyroid Hypothyroidism type: unspecified Qualified Code(s): E03.9 - Hypothyroidism, unspecified (8) Hypertension Hypertension type: essential hypertension Qualified Code(s): I10 - Essential (primary) hypertension (9) Stroke CVA mechanism: unspecified Qualified Code(s): I63.9 - Cerebral infarction, unspecified
--- NOTE | 2021-05-04 15:11 | XRay Report ---
SINGLE VIEW CHEST CLINICAL HISTORY: Dyspnea. FINDINGS: An AP, portable, upright chest radiograph is compared to study dated 04/20/2021 and correlate d with chest CT dated 04/21/2021. The examination is degraded by portable technique and patient rotatio n. The patient's head obscures the apices. The heart is enlarged noting atherosclerotic calcification and uncoiling of the thoracic aorta. There is prominence of the pulmonary vasculature. Chronic inter stitial thickening is similar to previous. There are small pleural effusions with right basilar conso lidation. No pneumothorax is seen. The skeletal structures are osteopenic. There are healed left-side d rib fractures. Degenerative change is seen throughout the imaged spine. IMPRESSION: 1. Cardiomegaly with prominence of the pulmonary vasculature. Correlate clinically for evidence of co ngestive failure. 2. Small pleural effusions with right basilar consolidation. This could represent atelectasis and/or pneumonia. Clinical correlation will be required and radiographic follow-up to resolution is recommen ded. ACT 112: Negative or not required by law. Electronically signed by: Steven Foss M.D. 05/04/2021 3:10 PM
--- NOTE | 2021-05-04 17:51 | Orthopedic Progress Note ---
Date of Service May 04, 2021 Assessment & Plan (1) Pressure ulcer, heel, left, unstageable: Plan: POD #3 s/p Incision and Drainage with debridement of Left Heel Ulcer cont to ice/elevate for swelling dressing changed this am using adaptec, 4x4, ABD and shannon. remain NWB left foot as per medicine Recommend continued wound care nursing. Ortho to sign off at this time. Follow-up with Dr. London's clinic in approximately 2 weeks. Admission and Anticipated Discharge Date Admission Date: April 23, 2021 Subjective No complaints of left heel. States the dressing had fallen off of his left foot. Review of Systems Constitutional: no fever and no chills Cardiovascular: no chest pain, no dyspnea and no orthopnea Physical Exam Constitutional: no acute distress Musculoskeletal: Left heel: There is a stable eschar that measures approximately 4.5 cm in diameter. Minimal erythema. No streaking. No drainage. Results & Data ([facility]) Vital Signs (Past 12 Hours) Vital Signs Temp Pulse Pulse Resp BP Pulse Ox 05/04/21 16:11 77 05/04/21 15:00 36.7 C 82 18 132/69 97 05/04/21 12:12 36.8 C 76 20 143/76 H 96 05/04/21 12:07 62 05/04/21 07:00 36.2 C L 80 22 163/71 H 98
[2021-05-04] MEDS ORDERED: POLYETHYLENE (MIRALAX) 17 GM PACK PO PRN (17:54)
[2021-05-04] MEDS: SENNA 8.6 MG TAB PO SCH (20:29)
[2021-05-04] MEDS: TAMSULOSIN HCL 0.4 MG CAP PO SCH (20:29)
[2021-05-05] MEDS: LEVOTHYROXINE SODIUM 100 MCG TABLET PO SCH (05:29)
[2021-05-05] MEDS: INSULIN ASPART 100 UNITS/ML 3 ML PEN SC SCH ×4 (09:18→20:59)
[2021-05-05] MEDS: INSULIN GLARGINE SOLOSTAR 100 UNITS/ML 3 ML PEN SC SCH (09:19)
[2021-05-05] MEDS: cefTRIAXone SODIUM 2,000 MG in DEXTROSE 5% 50 ML IV SCH (09:31)
[2021-05-05] MEDS: dilTIAZem HCL 240 MG CAPCR PO SCH (09:34)
[2021-05-05] MEDS: FAMOTIDINE 40 MG TABLET PO SCH (09:35)
[2021-05-05] MEDS: ENOXAPARIN INJ 40 MG/0.4 ML SYR SQ SCH (09:35)
[2021-05-05] MEDS: ROSUVASTATIN CALCIUM 20 MG TAB PO SCH (09:35)
[2021-05-05] MEDS: CLOPIDOGREL BISULFATE 75 MG TAB PO SCH (09:35)
[2021-05-05] MEDS: MULTIVITAMIN TAB PO SCH ×2 (09:35→09:44)
[2021-05-05] MEDS: DOCUSATE SODIUM 100 MG CAP PO SCH ×4 (09:37→20:58)
[2021-05-05] MEDS: DOCUSATE SODIUM/SENNA 50/8.6MG TAB PO SCH (09:43)
--- NOTE | 2021-05-05 12:17 | Hospitalist Progress Note ---
Date of Service May 05, 2021 Assessment & Plan (1) Altered mental status: Plan: Altered mental status: Resolved Encephalopathy, metabolic, secondary to diabetic foot infection diabetic foot infection significant improvement with IV ceftriaxone started 04/21 for suspected UTI. Blood cultures taken after antibiotics started due to GPC growing in urine culture. Now urine culture growing gamma strep, not enterococcus. MRI left ankle - possible osteomyelitis, procalcitonin negative. Ortho consulted recommending non urgent debridement after revascularization, revascularization not indicated per vascular surg, 05/01/21 Incision and Drainage abscess left heel, Irrigation and debridement of Left Heel Ulcer 5 cm x 5 cm x 0.6 cm, debridement of skin, subcutaneous fat, fascia and periosteum (Left) - Dustin London, DO Final dressing to be determined by orthopedics (2) Peripheral arterial disease: Plan: Noted on US arterial doppler, vascular surgery consult - angiography 04/28 Ant and post tibial arteries are occluded. Peroneal is patent to the ankle. Distal anterior tibial artery reconstitutes just above the ankle and supplies the DP, No intervention required. 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 Discussed with Dr London and recommended 6 weeks of IV ceftriaxone (4) Unstageable pressure ulcer of heel: Plan: Appreciate wound care management. No surrounding cellulitis. MRI suggestive of early osteomyelitis (see above) Blood culture negative (5) UTI (urinary tract infection): Plan: gamma strep not enterococcus, treated with ceftriaxone (6) Bilateral leg edema: Plan: Improved with lasix 40mg daily hold Lasix at this time Suspect heel infection causing worsened swelling of left side. Low Na diet, will not fluid restrict at the present time I&Os Daily weights 90.9 -> 81.6kg US venous doppler negative for DVT (7) Acute heart failure with preserved ejection fraction: Plan: Improved. Would give IV lasix 40mg today and continue on increased dose of 40mg PO moving forward (8) Hypoxia: Plan: Present on admission. Now resolved. Suspect secondary to aspiration in setting of altered mental state given quick resolution on admission Continue to monitor respiratory status Aim O2 sats > 90%, similar to prior discharge Aspiration precautions Known silent aspirations but risk feeding due to poor nutritional status on thickened fluids (9) Diabetes: Plan: Chronic. Well-controlled. Last A1c = 7.4 Hold oral agents, pioglitazone and Metformin Consult glycemic control given current poor control (10) Atrial flutter: Plan: Postoperative atrial flutter and atrial fibrillation with no documented recurrence on an event recorder, May,. Given peripheral artery disease will place on monitor to assess for recurrence Continue diltiazem 240 mg daily (11) Hypothyroid: Plan: Chronic. 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 every morning Continue Plavix 75 mg p.o. every morning (15) DVT prophylaxis: Plan: Lovenox subcu for DVT prevention full code Admission and Anticipated Discharge Date Admission Date: April 23, 2021 Subjective No acute events overnight. No questions or concerns from patient. Updated his over the phone. Discussed with Dr London regarding antibiotics - requests 6 weeks IV antibiotics given surgery findings. Review of Systems Review of Systems: All systems reviewed & are unremarkable except as noted in HPI & below Physical Exam Constitutional: well developed; + not well nourished and no acute distress Eyes: + anicteric sclerae; normal pupil size Respiratory: normal respiratory effort; no respiratory distress Auscultation: no diminished lung sounds, no rales and no wheezes Cardiovascular: Rate/Rhythm: regular rate and regular rhythm Heart Sounds: + murmur (3/6 systolic throughout) Extremities: normal capillary refill and + pedal edema (1+ b/l LE edema, equal); no calf tenderness Gastrointestinal (Abdomen): normal bowel sounds, soft, nontender, no hepatosplenomegaly Skin: + ulcer (left heel, dreassing not removed) Neurologic: moves all extremities and awake; not confused Psychiatric: Orientation: alert Results & Data Results & Data ([facility]) Vital Signs (Past 12 Hours) Vital Signs Temp Pulse Pulse Resp BP Pulse Ox 07/20/21 11:10 37.0 C 100 H 20 107/64 95 05/05/21 07:56 36.5 C 82 20 120/73 92 05/05/21 07:28 78 05/05/21 03:25 36.7 C 81 18 149/79 H 91 05/05/21 01:02 75 PG Care Time/CCT Total # of Minutes Spent Total Time Spent with Patient: Total time spent is greater than 50% in coordination of care (as documented) at patient's floor/unit and/or counseling patient: Coding Level of Care Code 18738 Subseq Hosp Care Lvl 2 Diagnoses Altered mental status R41.82 Altered mental status type: unspecified Peripheral arterial disease I73.9 Osteomyelitis of ankle M86.172 Laterality: left Osteomyelitis type: other acute Unstageable pressure ulcer of heel L89.620 Laterality: left UTI (urinary tract infection) N39.0 Hematuria presence: without hematuria Urinary tract infection type: site unspecified Bilateral leg edema R60.0 Acute heart failure with preserved ejection fraction I50.31 Hypoxia R09.02 Diabetes E11.59 Diabetes mellitus complication detail: with other circulatory complications Diabetes mellitus complication status: with circulatory complication Diabetes mellitus fci insulin use: without medical terminologist use Diabetes mellitus type: type 2 Atrial flutter I48.92 Atrial flutter type: unspecified Hypothyroid E03.9 Hypothyroidism type: unspecified Hypertension I10 Hypertension type: essential hypertension Esophageal thickening K22.8 Stroke I63.9 CVA mechanism: unspecified DVT prophylaxis Z29.9 (1) UTI (urinary tract infection) Hematuria presence: without hematuria Urinary tract infection type: site unspecified Qualified Code(s): N39.0 - Urinary tract infection, site not specified (2) Unstageable pressure ulcer of heel Laterality: left Qualified Code(s): L89.620 - Pressure ulcer of left heel, unstageable (3) Diabetes Diabetes mellitus complication detail: with other circulatory complications Diabetes mellitus complication status: with circulatory complication Diabetes mellitus fci insulin use: without medical terminologist use Diabetes mellitus type: type 2 Qualified Code(s): E11.59 - Type 2 diabetes mellitus with other circulatory complications (4) Atrial flutter Atrial flutter type: unspecified Qualified Code(s): I48.92 - Unspecified atrial flutter (5) Hypothyroid Hypothyroidism type: unspecified Qualified Code(s): E03.9 - Hypothyroidism, unspecified (6) Osteomyelitis of ankle Laterality: left Osteomyelitis type: other acute Qualified Code(s): M86.172 - Other acute osteomyelitis, left ankle and foot (7) Altered mental status Altered mental status type: unspecified Qualified Code(s): R41.82 - Altered mental status, unspecified (8) Hypertension Hypertension type: essential hypertension Qualified Code(s): I10 - Essential (primary) hypertension (9) Stroke CVA mechanism: unspecified Qualified Code(s): I63.9 - Cerebral infarction, unspecified
[2021-05-05] MEDS ORDERED: FUROSEMIDE 40 MG in SYRINGE 0 ML IV ONE (12:45)
--- NOTE | 2021-05-05 15:02 | Pharmacy Report ---
Pharmacy Glycemic Short Note 2 - Date of Service May 05, 2021 - Glycemic Short BSG Results (Last 24 hours): 05/04/21 05/04/21 05/05/21 16:39 20:09 07:43 POC Glucose 156 H 176 H 134 H 05/05/21 11:18 POC Glucose 272 H OUTPATIENT ANTIDIABETIC REGIMEN: * metformin 1000 mg PO BID * pioglitazone 30 mg PO daily * A1c = 7.4% ASSESSMENT: 05/05/21 * Patient is currently receiving an average of 38 units of insulin per day * 9 units of basal insulin * 29 units of prandial/correctional insulin * BSGs ranging 135-311 over the past 24hrs * Risk factors for insulin resistance are constant over the past 24hrs * Anticipating insulin regimen will need increased for the next 24hrs d/t : * AM Fasting BSG = 134 therefore Basal insulin will be continued * Post-prandial BSGs trend upwards at lunch then downwards. Tight CR at breakfast time and then looser throughout the day to prevent hypoglycemia. * Total daily dose = ~40-50 units/day 05/03/21: * Blood sugars at goal except pre lunch, blood sugar consistently rising: today 110-->216mg/dl and yesterday 134-->239mg/dl * Tighten CR with breakfast * Fasting BSG 110mg/dl - no change with Lantus at this time * Likely DC to [facility] tomorrow 05/02/21: * POD1 I&D Left heel ulcer. * Fasting BSG is at goal, Lantus discontinued on transfer, resume 9 units daily now * No other changes at this time PLAN FOR INPATIENT GLYCEMIC CONTROL: * Hold outpatient oral diabetes medications * Basal insulin * Lantus 9 units SQ daily * Bolus insulin * NovoLog per scale ACHS or Q6hrs while NPO * Goal Range: Low 110 mg/dL - High 140 mg/dL * Correction Factor: 20 mg/dL/unit Breakfast: * Nutritional / Prandial insulin per carb ratio of 1 unit per 3 grams CHO consumed Lunch/Dinner/HS * Nutritional / Prandial insulin per carb ratio of 1 unit per 6 grams CHO consumed PLAN FOR DISCHARGE: * A1c at goal for patient's age and co-morbidities * Recommend monitoring BSGs as an outpatient since patient has required around 50 units/day of insulin. * If patient continues to have edema issues, recommend not restarting Actos as this can cause edema. Another agent, such as Jardiance could be considered.
[2021-05-05] MEDS: TAMSULOSIN HCL 0.4 MG CAP PO SCH (20:58)
[2021-05-06] MEDS: LEVOTHYROXINE SODIUM 100 MCG TABLET PO SCH (05:56)
[2021-05-06 07:36] LABS: BUN Creatinine Ratio 35.4 (10-20); Calcium 8.2 mg/dl (8.5-10.1); Est GFR (African American) 94.4 ml/min; Est GFR (Non-African American) 81.5 ml/min; Potassium 4.5 mmol/L (3.5-5.1)
[2021-05-06 07:39] LABS: Hematocrit (blood only) 34.4 % (42-52); Hemoglobin 11.3 g/dL (14.0-18.0); Mean Corpuscular Hemoglobin 32.8 pg (25-34); Mean Corpuscular Hgb Conc 32.8 g/dL (32-36); Mean Corpuscular Volume 99.7 fL (80-100); Mean Platelet Volume 9.1 fL (7.4-10.4); Platelet Count 219 K/uL (130-400); RDW Coefficient of Variation 16.1 % (11.5-14.5); RDW Standard Deviation 57.9 fL (36.4-46.3); Red Blood Count 3.45 M/uL (4.7-6.1); White Blood Count 7.11 K/uL (4.8-10.8)
[2021-05-06] MEDS: cefTRIAXone SODIUM 2,000 MG in DEXTROSE 5% 50 ML IV SCH (09:11)
[2021-05-06] MEDS: INSULIN ASPART 100 UNITS/ML 3 ML PEN SC SCH ×4 (09:31→21:24)
[2021-05-06] MEDS: INSULIN GLARGINE SOLOSTAR 100 UNITS/ML 3 ML PEN SC SCH (09:32)
[2021-05-06] MEDS: ENOXAPARIN INJ 40 MG/0.4 ML SYR SQ SCH (09:33)
[2021-05-06] MEDS: dilTIAZem HCL 240 MG CAPCR PO SCH (09:35)
[2021-05-06] MEDS: CLOPIDOGREL BISULFATE 75 MG TAB PO SCH (09:35)
[2021-05-06] MEDS: DOCUSATE SODIUM 100 MG CAP PO SCH ×2 (09:36→21:24)
[2021-05-06] MEDS: DOCUSATE SODIUM/SENNA 50/8.6MG TAB PO SCH (09:36)
[2021-05-06] MEDS: MULTIVITAMIN TAB PO SCH (09:36)
[2021-05-06] MEDS: ROSUVASTATIN CALCIUM 20 MG TAB PO SCH (09:36)
[2021-05-06] MEDS: FUROSEMIDE 40 MG TAB PO SCH (09:36)
[2021-05-06] MEDS: FAMOTIDINE 40 MG TABLET PO SCH (09:36)
--- NOTE | 2021-05-06 20:28 | XRay Report ---
XR chest 1V portable CLINICAL HISTORY: PICC Placement COMPARISON STUDY: Chest CT April 21, 2021. Chest radiograph May 04, 2021. FINDINGS: The tip of the left PICC projects over the SVC. Evaluation of the chest is difficult given kyphosis. Right basilar opacity is improved. There are trace bilateral pleural effusions. There is no pneumothorax. Cardiomediastinal silhouette is stable. IMPRESSION: Tip of left PICC projects over the SVC. ACT 112: Negative or not required by law. Electronically signed by: Mendel Shelby M.D. 05/06/2021 8:26 PM
[2021-05-06] MEDS: TAMSULOSIN HCL 0.4 MG CAP PO SCH (21:24)
--- NOTE | 2021-05-06 22:14 | Hospitalist Progress Note ---
Date of Service May 06, 2021 Assessment & Plan (1) Altered mental status: Plan: Altered mental status: Resolved Encephalopathy, metabolic, secondary to diabetic foot infection diabetic foot infection significant improvement with IV ceftriaxone started 04/21 for suspected UTI. Blood cultures taken after antibiotics started due to GPC growing in urine culture. Now urine culture growing gamma strep, not enterococcus. MRI left ankle - possible osteomyelitis, procalcitonin negative. Ortho consulted recommending non urgent debridement after revascularization, revascularization not indicated per vascular surg, 05/01/21 Incision and Drainage abscess left heel, Irrigation and debridement of Left Heel Ulcer 5 cm x 5 cm x 0.6 cm, debridement of skin, subcutaneous fat, fascia and periosteum (Left) - Dustin London, (2) Peripheral arterial disease: Plan: Noted on US arterial doppler, vascular surgery consult - angiography 04/28 Ant and post tibial arteries are occluded. Peroneal is patent to the ankle. Distal anterior tibial artery reconstitutes just above the ankle and supplies the DP, No intervention required. 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 Discussed with Dr London and recommended 6 weeks of IV ceftriaxone PICC line ordered and consent gained today (4) Unstageable pressure ulcer of heel: Plan: Appreciate wound care management. No surrounding cellulitis. MRI suggestive of early osteomyelitis (see above) Blood culture negative (5) UTI (urinary tract infection): Plan: gamma strep not enterococcus, treated with ceftriaxone (6) Bilateral leg edema: Plan: Improved with lasix 40mg daily hold Lasix at this time Suspect heel infection causing worsened swelling of left side. Low Na diet, will not fluid restrict at the present time I&Os Daily weights 90.9 -> 81.6kg US venous doppler negative for DVT (7) Acute heart failure with preserved ejection fraction: Plan: Improved. Would give IV lasix 40mg today and continue on increased dose of 40mg PO moving forward (8) Hypoxia: Plan: Present on admission. Now resolved. Suspect secondary to aspiration in setting of altered mental state given quick resolution on admission Continue to monitor respiratory status Aim O2 sats > 90%, similar to prior discharge Aspiration precautions Known silent aspirations but risk feeding due to poor nutritional status on thickened fluids (9) Diabetes: Plan: Chronic. Well-controlled. Last A1c = 7.4 Hold oral agents, pioglitazone and Metformin Consult glycemic control given current poor control (10) Atrial flutter: Plan: Postoperative atrial flutter and atrial fibrillation with no documented recurrence on an event recorder, May,. Given peripheral artery disease will place on monitor to assess for recurrence Continue diltiazem 240 mg daily (11) Hypothyroid: Plan: Chronic. 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 every morning Continue Plavix 75 mg p.o. every morning (15) DVT prophylaxis: Plan: Lovenox subcu for DVT prevention full code Admission and Anticipated Discharge Date Admission Date: April 23, 2021 Anticipated date of discharge: 05/07/21 Subjective No acute events overnight. No questions or concerns from patient. Updated his over the phone and gained consent for PICC line as requested by Solvang Brannon. Review of Systems Review of Systems: All systems reviewed & are unremarkable except as noted in HPI & below Physical Exam Constitutional: well developed; + not well nourished and no acute distress Eyes: + anicteric sclerae; normal pupil size Respiratory: normal respiratory effort; no respiratory distress Auscultation: no diminished lung sounds, no rales and no wheezes Cardiovascular: Rate/Rhythm: regular rate and regular rhythm Heart Sounds: + murmur (3/6 systolic throughout) Extremities: normal capillary refill, + pedal edema (2+ b/l LE edema, equal) and + edema (bilateral peripheral upper extremities); no calf tenderness Gastrointestinal (Abdomen): normal bowel sounds, soft, nontender, no hepatosplenomegaly Skin: + ulcer (left heel, dreassing not removed) Neurologic: moves all extremities and awake; not confused Psychiatric: Orientation: alert Results & Data Results & Data ([facility]) Vital Signs (Past 12 Hours) Vital Signs Temp Pulse Pulse Resp BP Pulse Ox 05/06/21 18:58 36.3 C L 87 18 144/78 H 92 05/06/21 15:50 80 05/06/21 15:12 36.7 C 50 L 20 122/80 98 05/06/21 11:18 36.4 C L 81 20 117/79 96 PG Care Time/CCT Total # of Minutes Spent Total Time Spent with Patient: Total time spent is greater than 50% in co ordination of care (as documented) at patient's floor/unit and/or counseling patient: Coding Level of Care Code 16611 Subseq Hosp Care Lvl 2 Diagnoses Altered mental status R41.82 Altered mental status type: unspecified Peripheral arterial disease I73.9 Osteomyelitis of ankle M86.172 Laterality: left Osteomyelitis type: other acute Unstageable pressure ulcer of heel L89.620 Laterality: left UTI (urinary tract infection) N39.0 Hematuria presence: without hematuria Urinary tract infection type: site unspecified Bilateral leg edema R60.0 Acute heart failure with preserved ejection fraction I50.31 Hypoxia R09.02 Diabetes E11.59 Diabetes mellitus complication detail: with other circulatory complications Diabetes mellitus complication status: with circulatory complication Diabetes mellitus care home insulin use: without cost estimating manager use Diabetes mellitus type: type 2 Atrial flutter I48.92 Atrial flutter type: unspecified Hypothyroid E03.9 Hypothyroidism type: unspecified Hypertension I10 Hypertension type: essential hypertension Esophageal thickening K22.8 Stroke I63.9 CVA mechanism: unspecified DVT prophylaxis Z29.9 (1) UTI (urinary tract infection) Hematuria presence: without hematuria Urinary tract infection type: site unspecified Qualified Code(s): N39.0 - Urinary tract infection, site not specified (2) Unstageable pressure ulcer of heel Laterality: left Qualified Code(s): L89.620 - Pressure ulcer of left heel, unstageable (3) Diabetes Diabetes mellitus complication detail: with other circulatory complications Diabetes mellitus complication status: with circulatory complication Diabetes mellitus cost estimating manager insulin use: without care home use Diabetes mellitus type: type 2 Qualified Code(s): E11.59 - Type 2 diabetes mellitus with other circulatory complications (4) Atrial flutter Atrial flutter type: unspecified Qualified Code(s): I48.92 - Unspecified atrial flutter (5) Hypothyroid Hypothyroidism type: unspecified Qualified Code(s): E03.9 - Hypothyroidism, unspecified (6) Osteomyelitis of ankle Laterality: left Osteomyelitis type: other acute Qualified Code(s): M86.172 - Other acute osteomyelitis, left ankle and foot (7) Altered mental status Altered mental status type: unspecified Qualified Code(s): R41.82 - Altered mental status, unspecified (8) Hypertension Hypertension type: essential hypertension Qualified Code(s): I10 - Essential (primary) hypertension (9) Stroke CVA mechanism: unspecified Qualified Code(s): I63.9 - Cerebral infarction, unspecified
[2021-05-07] MEDS: LEVOTHYROXINE SODIUM 100 MCG TABLET PO SCH (05:27)
[2021-05-07] MEDS: INSULIN ASPART 100 UNITS/ML 3 ML PEN SC SCH ×3 (08:35→17:46)
[2021-05-07] MEDS: cefTRIAXone SODIUM 2,000 MG in DEXTROSE 5% 50 ML IV SCH (08:37)
[2021-05-07] MEDS: FUROSEMIDE 40 MG TAB PO SCH (08:40)
[2021-05-07] MEDS: FAMOTIDINE 40 MG TABLET PO SCH (08:40)
[2021-05-07] MEDS: ENOXAPARIN INJ 40 MG/0.4 ML SYR SQ SCH (08:40)
[2021-05-07] MEDS: dilTIAZem HCL 240 MG CAPCR PO SCH (08:40)
[2021-05-07] MEDS: DOCUSATE SODIUM/SENNA 50/8.6MG TAB PO SCH (08:40)
[2021-05-07] MEDS: INSULIN GLARGINE SOLOSTAR 100 UNITS/ML 3 ML PEN SC SCH (08:40)
[2021-05-07] MEDS: CLOPIDOGREL BISULFATE 75 MG TAB PO SCH (08:40)
[2021-05-07] MEDS: ROSUVASTATIN CALCIUM 20 MG TAB PO SCH (08:40)
[2021-05-07] MEDS: DOCUSATE SODIUM 100 MG CAP PO SCH (08:40)
[2021-05-07] MEDS: MULTIVITAMIN TAB PO SCH (08:40)
--- NOTE | 2021-05-07 12:27 | Discharge Summary ---
Date of Service May 07, 2021 Admission HPI Per Admitting Provider Eligio Morrell is an 86yo male with history of HTN, HLP, DM, AFlutter presenting with altered mental status/confusion and report of hypoxia from the longterm. Patient was admitted in February 2021 with an acute 1cm infarct of the posterior left frontal lobe and severe stenosis of the proximal right internal carotid artery with an associated string sign. He underwent carotid endarterectomy with Dr. Leon on 03/02/2021. He was discharged to [facility] then subsequently to [facility]. Patient presents this evening with report of confusion/altered mental status x3 days as well as hypoxia this evening. Saturations reported to be in the 60s and 70s from the longterm. On arrival, patient afebrile, mildly hypertensive otherwise hemodynamically stable. No respiratory distress. Adequate oxygenation on 2 L of oxygen by nasal cannula. Nursing states the patient saturations do drop to the high 80s (87 to 89%) while sleeping. Patient offers no complaints. He is uncertain why he is in the hospital this evening. Admission Exam Per Admitting Provider General: patient resting comfortably, easily arousable, NAD, non-toxic in appearance, is not oriented. Following commands. Answers some questions appropriately Skin: warm, dry, intact, no rashes or lesions HEENT: NC/AT, PERRL, EOMI, anicteric sclera, conjunctiva without injection, external ear normal to inspection and nontender, nares patent, dry mucus membranes, dentition intact, no oropharyngeal lesions, neck supple, trachea midline, no LAD, no thyromegaly, no JVD Heart: +S1/S2, regular, 3/6 systolic ejection murmur at left sternal border with radiation across the precordium Lungs: equal air entry bilaterally, no rales/rhonchi/wheezes Abd: +BS, soft, NT/ND, no masses/organomegaly/ascites Ext: warm, 2+ pulses in UE/LE bilaterally, no clubbing/cyanosis, 3+ edema of bilateral lower extremities, right greater than left Neuro: Patient awake, not oriented. Following commands. Answers some questions appropriately. No facial droop. Speech is clear. Muscle strength 5 out of 5 in upper and lower extremities bilaterally Principal Diagnosis Acute hypoxic respiratory failure - suspected from aspiration Left heel diabetic ulcer, abscess and suspected osteomyelitis Altered mental status due to left heel infection Discharge Exam Constitutional well developed; + not well nourished and no acute distress Eyes + anicteric sclerae; normal pupil size Respiratory normal respiratory effort; no respiratory distress Auscultation: no diminished lung sounds, no rales and no wheezes Cardiovascular Rate/Rhythm: regular rate and regular rhythm Extremities: normal capillary refill, + pedal edema (1+ b/l LE edema, equal) and + edema (bilateral peripheral upper extremities); no calf tenderness Gastrointestinal (Abdomen) normal bowel sounds, soft, nontender, no hepatosplenomegaly Skin + ulcer (left heel, dreassing not removed) Neurologic moves all extremities and awake; not confused Psychiatric Orientation: alert Discharge Data Allergies Allergy/AdvReac Type Severity Reaction Status Date / Time metoprolol AdvReac Mild GI SYMPTOMS Verified 05/09/21 17:56 almond AdvReac Unknown Cough Verified 05/10/21 17:42 Consultations 04/21/21 03:31 ED Decision to Admit Stat 04/23/21 15:55 Consult Infectious Diseases Routine 04/24/21 07:52 Consult Vascular Surgery Routine 04/24/21 13:31 Consult Orthopedic Surgery Routine Procedures Performed Operation Date: 04/28/21 14:20 Actual Procedures p Left Lower Extremity Angiogram , Ultrasound Localization of Right Femoral Artery, Mechanical Closure of Right Femoral Artery(Right) - Drake Leon MD Operation Date: 05/01/21 12:45 Actual Procedures p Incision and Drainage with debridement of Left Heel Ulcer(Left) - Dustin London, Ordered Studies 04/20/21 23:58 CT head/brain wo con Urgent 04/21/21 01:35 CT angio chest PE protocol Urgent 04/23/21 12:39 MR ankle LT wo/w con Routine 04/23/21 15:55 US arterial duplex LE LT Routine 04/24/21 07:52 US venous doppler LE BI Routine 04/28/21 10:23 EV angio LE LT Routine US EV guide vascular access Routine Hospital Course (1) Altered mental status: (2) Peripheral arterial disease: (3) Osteomyelitis of ankle: (4) Unstageable pressure ulcer of heel: (5) UTI (urinary tract infection): (6) Bilateral leg edema: (7) Acute heart failure with preserved ejection fraction: (8) Hypoxia: (9) Diabetes: (10) Atrial flutter: (11) Hypothyroid: (12) Hypertension: (13) Esophageal thickening: (14) Stroke: (15) DVT prophylaxis: Eligio Morrell is an 86 year old male admitted to [facility] from April 21-2020 due to hypoxia and altered mental status. Suspect altered mental status due to left diabetic heel ulcer which on MRI and surgical debridement suggests osteomyelitis. Altered mental status improved with intravenous ceftriaxone started on admission. He underwent angiogram by vascular surgery 04/28 showing peripheral artery disease but nothing requiring intervention. Subsequently underwent debridement, incision and drainage of left heel ulcer and abscess on 05/01. On discussion with orthopedics recommend 6 weeks total of antibiotics from operation date (last dose 06/12). Please follow up with Dr London with appointment as below. Please see additional wound care instructions for daily dressing changes. Continue on Lovenox 40mg SQ daily while non-weight bearing on left leg. Suspect hypoxic episode on admission was secondary to altered mental status causing aspiration. He was assessed by speech and language therapy and will continue on easy to chew diet with permissive aspirations of thin liquids due to poor nutrition previously when trying thickened liquids. His risk of aspiration is still present but less so now your infection is no longer causing altered mental state. He was also noted to have pitting edema in all four extremities. Residual edema is reflective of your overall nutritional state rather than congestive heart failure however you were diuresed with IV Lasix during your admission due to pulmonary edema on chest XR which has now resolved. He should continue on increased dose of 40mg Lasix daily to avoid this recurring. Also switched Actos for Jardiance to help with this as Actos can cause swelling. Citalopram was discontinued due to family concern contributing towards altered mental state and possibly started while patient was actively having an infection therefore unclear whether this is still warranted. Consider psychiatry follow up if this needs to be restarted for his mood. Total Time Total Time Spent Total Time Spent (In Minutes): 40 Discharge Plan Discharge Items Patient Disposition: Transfer Inpatient Rehab Fac Reason For Visit: AMS, HYPOXIA PRIOR TO ARRIVAL Discharge Diagnosis: Acute hypoxic respiratory failure - suspected from aspiration Left heel diabetic ulcer, abscess and suspected osteomyelitis Altered mental status due to left heel infection Activity: Per Instructions section Weightbearing: Left non-weightbearing Non-emergency contact: Primary Care Provider and Surgeon Call non-emergency contact if: you have any medication questions Follow-up/Referrals: Dustin London DO [Surgeon] - (Dr. London's clinic will phone you with an appt time and date approximately 2 weeks postop.) [facility] [Primary Care Provider] - Diet: Carb Consistent or DM2, Low Potassium (2gm) and Low Sodium (2gm) Diet Texture: Easy to Chew Addtl Attending Provider Instructions: You were admitted to [facility] from April 21-2020 due to hypoxia and altered mental status. Suspect your altered mental status was due to left diabetic heel ulcer which on MRI and surgical debridement suggests osteomyelitis. This altered mental status improved with intravenous ceftriaxone started on admission. You underwent angiogram by vascular surgery 04/28 showing peripheral artery disease but nothing requiring intervention. Therefore you underwent debridement, incision and drainage of left heel ulcer and abscess on 05/01. On discussion with orthopedics recommend 6 weeks total of antibiotics from operation date (last dose 06/12). Please follow up with Dr London with appointment as above. Please see additional wound care instructions for daily dressing changes. Continue on Lovenox 40mg SQ daily while non-weight bearing on left leg. Suspect hypoxic (low oxygen) episode on admission was secondary to altered mental status causing aspiration. You were assessed by speech and language therapy and will continue on easy to chew diet with permissive aspirations of thin liquids due to poor nutrition previously when trying thickened liquids. Your risk of aspiration is still present but less so now your infection is no longer causing altered mental state. You were also noted to have pitting edema in all four extremities. Residual edema is reflective of your overall nutritional state rather than congestive heart failure however you were diuresed with IV Lasix during your admission due to pulmonary edema on chest XR which has now resolved. Please continue on increased dose of 40mg Lasix daily to avoid this recurring. Also switched Actos for Jardiance to help with this as Actos can cause swelling. Citalopram was discontinued due to family concern contributing towards altered mental state and possibly started while patient was actively having an infection therefore unclear whether this is still warranted. Consider psychiatry follow up if this needs to be restarted for his mood. Pending Studies at Discharge: No Stand-Alone Forms: My [facility] Skilled Items Patient informed of condition?: Yes DNR: No Discharge Level of Care: Acute rehab Communicable Disease: No Discharge Prognosis: Improving Lines: PICC Urinary Catheter: No Medications and DC Order Prescriptions: Continued levothyroxine [Synthroid] 100 mcg tablet 100 mcg PO DAILYBB RF: 0 tamsulosin [Flomax] 0.4 mg capsule 0.4 mg PO HS RF: 0 cholecalciferol (vitamin D3) [Vitamin D3] 1,000 unit Capsule 1,000 unit PO QAM RF: 0 rosuvastatin [Crestor] 20 mg Tablet 20 mg PO QAM Qty: 30 RF: 0 diltiazem HCl 120 mg Capsule,Extended Release 12 Hr 240 mg PO QAM RF: 0 metformin 1,000 mg Tablet 1,000 mg PO BID RF: 0 acetaminophen [Tylenol] 325 mg Capsule 650 mg PO Q6 PRN (Reason: Fever Or Pain) RF: 0 Senna Plus 8.6-50 mg Capsule 3 tab-cap PO QAM RF: 0 Discontinued citalopram [Celexa] 10 mg Tablet 5 mg PO HS RF: 0 pioglitazone 15 mg Tablet 30 mg PO DAILY RF: 0 furosemide [Lasix] 20 mg Tablet 20 mg PO DAILY RF: 0 No Action heparin lock flush (porcine) 10 unit/mL Solution 50 unit IV QS RF: 0 oxycodone [Roxicodone] 5 mg Tablet 5 mg PO Q12 RF: 0 sodium chloride 0.9 % (flush) [Normal Saline Flush] Syringe 10 ml IV QS RF: 0 ceftriaxone 2 gram recon soln 2 g IV Q24H RF: 0 clopidogrel [Plavix] 75 mg tablet 75 mg PO QAM RF: 0 docusate sodium [Colace] 100 mg capsule 100 mg PO BIDM RF: 0 furosemide [Lasix] 20 mg tablet 40 mg PO QAM RF: 0 enoxaparin [Lovenox] 40 mg/0.4 mL syringe 40 mg subcut Q24H RF: 0 Jardiance 10 mg tablet 10 mg PO QAM RF: 0 Discharge Orders: Discharge Order (Routine); Ordered 05/07/21 Ordered By: Michael Zuñiga Admission Data Admit Date/Time: 04/23/21 15:46 Attending Provider: Michael Zuñiga Admit Provider: Gwendolyn Truong Primary Care Provider: [facility] Other Providers: [facility] ; Gwendolyn Truong ; Piero Han ; Raymundo Walters ; Paolo Truong I. ; Floyd Mathews II ; Gayathri Brandon ; Ortiz Hassan ; Drake Leon ; Jair Estrada Coding Level of Care Code D/C DAY MANAGEMENT >30 MINS Diagnoses Altered mental status R41.82 Altered mental status type: unspecified Peripheral arterial disease I73.9 Osteomyelitis of ankle M86.172 Laterality: left Osteomyelitis type: other acute Unstageable pressure ulcer of heel L89.620 Laterality: left UTI (urinary tract infection) N39.0 Hematuria presence: without hematuria Urinary tract infection type: site unspecified Bilateral leg edema R60.0 Acute heart failure with preserved ejection fraction I50.31 Hypoxia R09.02 Diabetes E11.59 Diabetes mellitus complication detail: with other circulatory complications Diabetes mellitus complication status: with circulatory complication Diabetes mellitus halfway insulin use: without halfway use Diabetes mellitus type: type 2 Atrial flutter I48.92 Atrial flutter type: unspecified Hypothyroid E03.9 Hypothyroidism type: unspecified Hypertension I10 Hypertension type: essential hypertension Esophageal thickening K22.8 Stroke I63.9 CVA mechanism: unspecified DVT prophylaxis Z29.9
--- NOTE | 2021-05-18 13:01 | Coding Query ---
DEBRIDEMENT DOCUMENTATION To promote full compliance with coding requirements relating to patient care, physician participation is requested in all cases of trimmer sawyer uncertainty. Please assist us with the question(s) below: Please place an X in the parenthesis (x). If other, please document the finding: Type of Debridement: (X ) Excisional Debridement- Cutting away necrotic, devitalized tissue or slough to the level of viable tissue using a sharp instrument (i.e. scalpel, scissors, etc.) ( ) Non Excisional Debridement- The removal of necrotic, devitalized tissue or slough by means of scraping, mechanical brushing, flushing, or washing (i.e. irrigation,whirlpool);minor removal of loose fragments. ( ) Other (please specify): Thank you Carlita HAYWARD
== END 2021-05-07 19:27 | DRG 628 ==
LOC: 2N 20:45 → ED 20:45 → SUATTDRO 04-21 04:23 → 2N 04-21 06:42 → SUATTDRO 04-23 15:46

== ENCOUNTER 2021-05-09 17:34 | Inpatient (IN) ==
[2021-05-09] MEDS ORDERED: ALBUT/IPRATROP 3MG/0.5MG NEB 3 ML VIAL NEB STA (18:22)
[2021-05-09] MEDS ORDERED: PIPERACILL/TAZOBAC CONSULT ACTIVE PRN (18:30)
[2021-05-09] MEDS ORDERED: PIPERACILLIN/TAZOBACTAM 4.5 GM/120 ML BAG IV ONE (18:30)
[2021-05-09 18:38] LABS: Basophils # (auto) 0.01 K/uL (0-0.2); Basophils % (auto) 0.1 %; Eosinophils # (auto) 0.06 K/uL (0-0.5); Eosinophils % (auto) 0.6 %; Hematocrit (blood only) 35.3 % (42-52); Hemoglobin 11.6 g/dL (14.0-18.0); Immature Granulocytes # (auto) 0.01 K/uL (0.00-0.02); Immature Granulocytes % (auto) 0.1 %; Lymphocytes # (auto) 0.28 K/uL (1.2-3.4); Lymphocytes % (auto) 2.9 %; Mean Corpuscular Hgb Conc 32.9 g/dL (32-36); Mean Corpuscular Volume 100.3 fL (80-100); Mean Platelet Volume 9.5 fL (7.4-10.4); Monocytes # (auto) 0.67 K/uL (0.11-0.59); Neutrophils # (auto) 8.48 K/uL (1.4-6.5); Neutrophils % (auto) 89.3 %; Platelet Count 187 K/uL (130-400); RDW Coefficient of Variation 16.5 % (11.5-14.5); RDW Standard Deviation 59.1 fL (36.4-46.3); Red Blood Count 3.52 M/uL (4.7-6.1); White Blood Count 9.51 K/uL (4.8-10.8)
[2021-05-09 18:58] LABS: INR 1.1 (0.9-1.1); Partial Thromboplastin Ratio 1.2; Partial Thromboplastin Time 30.3 Seconds (21.0-31.0); Prothrombin Time 11.4 Seconds (9.0-12.0)
--- NOTE | 2021-05-09 19:05 | Emergency Department Note ---
Impression & Plan Acute respiratory failure with hypoxia, Diastolic heart failure, Unstageable pressure ulcer of heel, Aspiration pneumonia, Bilateral leg edema, History of cerebrovascular accident ED Provider Note NAME: TOSHA MILLER JR AGE: 86 SEX: M ARRIVES VIA: Ambulance INFORMANT: Patient, ED PROVIDER(S): [facility] MD CHIEF COMPLAINT: Respiratory failure PLAN: Disposition: Admit MEDICAL DECISION MAKING: The patient is a pleasant 86-year-old gentleman with a complicated recent past medical history including dementia, CVA with residual right-sided mari paresis,dysphagia, diastolic heart failure, osteomyelitis of the left ankle, peripheral arterial disease status post right carotid endarterectomy on 02/27 hypertension, hyperlipidemia, diabetes, atrial flutter who presents to the emergency department from his snf facility at [facility] for worsening shortness of breath/respiratory status with persistent hypoxia despite being on supplemental oxygen/nasal cannula increased to 5L with O2 mid s and then placed on 100% O2 via nonrebreather by EMS for severe hypoxia and work of breathing. Per the patient's who arrived to the bedside, she was told today by [facility] staff that he has been declining ever since he returned to their facility from his recent hospitalization on . The patient's reports that she feels as though she is unclear of some of the details of his recent care because of limited communication with her from the SNF. She does have the patient's living will with her which does describe the patient's wishes should he become terminally ill. Documentation from [facility] shows DNR as code status. On arrival the patient is acute on chronically ill-appearing, cachectic, moderate respiratory distress with increased work of breathing with scattered rales and rhonchi throughout. He is alert and oriented to self and place though does appear mildly confused. He has 3+ bilateral lower extremity edema which the patient's reports has been evolving for several months in the setting of his recurrent hospitalizations following his CVA in February 2021. He has bilateral heel ulcers without surrounding erythema, warmth tenderness or crepitus. Given the patient's respiratory failure on arrival requiring nonrebreather he was placed on BiPAP for respiratory support. Patient's work of breathing improved significantly once on BiPAP. Patient was ordered for empiric Zosyn given suspicion for aspiration. EKG without overt acute ischemia. Chest x-ray is suspicious for multifocal pneumonia right greater than left suspicious for aspiration in setting of the patient's history thereof. WBC and platelets within normal limits. H/H 11.6/35.3 similar to prior range of values. Chemistry without metabolic acidosis. Lactic acid 1.4, within normal limits. Electrolytes and LFTs without significant abnormality. Troponin negative/undetectable. BNP within normal limits. Procalcitonin is not s ignificantly elevated. UA without convincing evidence of infection. COVID-19 PCR was negative. Per preliminary stat rad report, CT head negative for acute process. CTA of the chest negative for PE though does show progression of dependent airspace opacities. CT of the abdomen pelvis demonstrates fecal retention with mild rectal fecal impaction otherwise no acute intra-abdominal process. Upon re- evaluation, patient was resting comfortably with resolution of WOB. ABG after several hours on Bipap with PO2 400 and so FiO2 weaned to 40% with stable oxygenation. Patient's agrees with plan for admission. Case was discussed with Dr. Truong, [facility] hospitalist, who will evaluate the patient for admission. Triage Nursing notes reviewed and agree them. Prior medical records reviewed Vital Signs: reviewed and remarkable for no significant abnormalities Differential diagnosis: Reactive airway disease, pneumonia, pneumothorax, COPD, CHF, infections, cardiac ischemia, pulmonary embolism, musculoskeletal, gastrointestinal, as well as other pathologies. ER treatment provided: See below. Diagnostics interpreted by me: ECG: Sinus rhythm with PACs, 80 bpm, ST and T wave abnormality, no overt ST elevation or depression, QTC 440, QRS 78. Baseline artifact. Cardiac Monitoring: An order for continuous cardiac monitoring was placed and demonstrated sinus rhythm with PACs, 80 bpm. Laboratory studies: See below Imaging studies: See below and [facility] Preliminary Findings Only See Final Report For Complete Findings CT HEAD: Comparison: CT head 04/21/21 Involutional and chronic small vessel ischemic changes. No ICH, mass-effect, or edema. No skull fracture. Sinuses and mastoid air cells are clear. Motion artifact. Radiologist: Linda Rodriguez M.D. Study ready at 20:40 and initial results transmitted at 20:42 -- Preliminary Findings Only See Final Report For Complete Findings CTA CHEST: Comparison: CT chest 04/21/21. Small pleural effusions, increased from prior. Dependent airspace disease at the lung bases, increased from prior, atelectasis or pneumonia. No pneumothorax. No pulmonary embolism. No thoracic aortic aneurysm or dissection. Cardiomegaly, coronary artery atherosclerosis, and aortic valve replacement. Left PICC extends to the SVC. Nonobstructing kidney stones. Osteopenia. Stable subacute to chronic compression fractures throughout the thoracic and upper lumbar spine. Multiple subacute to chronic nondisplaced right rib fractures. Radiologist: Linda Rodriguez M.D. Study ready at 20:43 and initial results transmitted at 20:50 -- Preliminary Findings Only See Final Report For Complete Findings CT ABDOMEN & PELVIS With Contrast: Motion artifact. Liver, gallbladder, spleen, pancreas, adrenal glands are unremarkable. Nonobstructing kidney stones. No hydronephrosis. Aortoiliac atherosclerosis without aneurysm. Constipation with colonic stool retention and mild rectal fecal impaction. No bowel obstruction. Appendix not visualized. Sigmoid diverticulosis without diverticulitis. Urinary bladder decompressed from Cisse catheter. Prostate is not enlarged. Anasarca. Chronic severe compression fractures at T11 and L1. Mild compression deformity at L4, most likely chronic. Radiologist: Linda Rodriguez M.D. Study ready at 20:43 and initial results transmitted at 20:54 Consultation(s): Case was discussed with Dr. Truong, [facility] hospitalist, who will evaluate the patient for admission. HPI: The patient is a pleasant 86-year-old gentleman with a complicated recent past medical history including dementia, CVA with residual right-sided hemiparesis,dysphagia, diastolic heart failure, osteomyelitis of the left ankle, peripheral arterial disease status post right carotid endarterectomy on 02/27 hypertension, hyperlipidemia, diabetes, atrial flutter who presents to the emergency department from his snf facility at [facility] for worsening shortness of breath/respiratory status with persistent hypoxia despite being on supplemental oxygen/nasal cannula increased to 5L with O2 mid s and then placed on 100% O2 via nonrebreather by EMS for severe hypoxia and work of b reathing. Per the patient's who arrived to the bedside, she was told today by [facility] staff that he has been declining ever since he returned to their facility from his recent hospitalization on . The patient's reports that she feels as though she is unclear of some of the details of his recent care because of limited communication with her from the SNF. She does have the patient's living will with her which does describe the patient's wishes should he become terminally ill. Documentation from [facility] shows DNR as code status. ROS: See above HPI for pertinent positives & negatives. A total of 10 systems reviewed and were otherwise negative. PAST MEDICAL HISTORY:See Below PAST SURGICAL HISTORY:See Below FAMILY HISTORY:See Below SOCIAL HISTORY:See Below HOME MEDICATIONS:See Below ALLERGIES:See Below VITALS:See Below PHYSICAL EXAMINATION: GENERAL: Awake, alert, cachectic, acute on chronically ill-appearing, in moderate respiratory distress HENT: Normocephalic, atraumatic. Oropharynx with dry and cracked mucous membranes and otherwise unremarkable. EYES: Normal conjunctiva. Sclera non-icteric. NECK: Supple. No nuchal rigidity. FROM. No JVD. RESPIRATORY: Scattered rales and rhonchi bilaterally with increased work of br eathing. CARDIAC: Regular rate, normal rhythm. Extremities warm and well perfused. Pulses equal. ABDOMEN: Soft, non-distended. No tenderness to palpation. No rebound or guarding. No masses. RECTAL: Deferred. MUSCULOSKELETAL: Chest examination reveals no tenderness. The back is symmetrical on inspection without obvious abnormality. There is no CVA tenderness to palpation. No joint edema. LOWER EXTREMITIES: 3+ bilateral lower extremity edema without erythema, warmth or tenderness. Bilateral heel ulcers without discharge, surrounding erythema, warmth, or crepitus. NEURO: Alert to self and place. Generalized weakness in all extremities. SKIN: No rash or jaundice noted. ED COURSE: Critical Care: I have personally spent greater than 95 minutes of critical care time in the direct management of this patient. This includes bedside care, interpretation of diagnostic studies, and testing, discussion with consultants, patient, and family members, and other required patient management activities. This 95 minutes is in excess of all separately billable procedures. [facility] MD Past Med/Surg History Medical History Anemia Atrial flutter BPH (benign prostatic hyperplasia) Carotid stenosis Cellulitis Chronic kidney disease Diabetes History of aortic stenosis s/p avr Hyperlipidemia Hypertension Hypothyroid Peripheral arterial disease Squamous cell carcinoma Multiple Stroke Surgical History S/P AVR (aortic valve replacement) Bioprosthetic (25 mm Buenrostro 2 porcine valve) October 2016 Family History Uncle Parkinson disease Brother Parkinson disease Other Family history non-contributory Social History Smoking Status: Former smoker Second Hand Exposure: No; Hx Alcohol Use: No Hx Substance Use: No Preferred Language: Gambian Communication Ability: Impaired Voice Professor Required: No Beliefs That Will Affect Care: None Current Living Situation: Other Current Living Situation Comment: home alone with spouse. Feels Safe at Home: Yes Assistive Devices: Hearing Aid - Bilateral Allergies Allergies Allergy/AdvReac Type Severity Reaction Status Date / Time metoprolol AdvReac Mild GI SYMPTOMS Verified 05/09/21 17:56 Home Meds Home Medications Medication Instructions Recorded Confirmed cholecalciferol (vitamin D3) 25 1,000 unit PO QAM 05/30/19 05/09/21 mcg (1,000 unit) capsule (Vitamin D3) tamsulosin 0.4 mg capsule (Flomax) 0.4 mg PO HS 05/30/19 05/09/21 levothyroxine 100 mcg tablet 100 mcg PO DAILYBB 02/16/21 05/09/21 (Synthroid) acetaminophen 325 mg capsule 650 mg PO Q6 PRN 04/21/21 05/09/21 (Tylenol) diltiazem HCl 120 mg 240 mg PO QAM 04/21/21 05/09/21 capsule,extended release 12 hr metformin 1,000 mg tablet 1,000 mg PO BID 04/21/21 05/09/21 sennosides 8.6 mg-docusate sodium 3 tab-cap PO QAM 04/21/21 05/09/21 50 mg capsule (Senna Plus) ceftriaxone 2 gram intravenous 2 g IV Q24H 05/09/21 05/09/21 solution clopidogrel 75 mg tablet (Plavix) 75 mg PO QAM 05/09/21 05/09/21 docusate sodium 100 mg capsule 100 mg PO BIDM 05/09/21 05/09/21 (Colace) empagliflozin 10 mg tablet 10 mg PO QAM 05/09/21 05/09/21 (Jardiance) enoxaparin 40 mg/0.4 mL 40 mg SUBCUT Q24H 05/09/21 05/09/21 subcutaneous syringe (Lovenox) furosemide 20 mg tablet (Lasix) 40 mg PO QAM 05/09/21 05/09/21 heparin lock flush (porcine) 10 50 unit IV QS 05/09/21 05/09/21 unit/mL intravenous solution oxycodone 5 mg tablet (Roxicodone) 5 mg PO Q12 05/09/21 05/09/21 sodium chloride 0.9 % (flush) 10 ml IV QS 05/09/21 05/09/21 (Normal Saline Flush) Previous Rx's Medication Instructions Recorded rosuvastatin 20 mg tablet (Crestor) 20 mg PO QAM #30 tab 03/03/21 Results & Data (ED) Vital Signs Vital Signs - 24 hr 05/09/21 17:50 05/09/21 18:16 05/09/21 18:56 Pulse Rate 82 86 Pulse Rate [Apical] Respiratory Rate 18 26 H Respiratory Effort / Characteristics Moaning Short of Breath Spontaneous Respiratory Depth Shallow Normal Respiratory Pattern Rapid/Shallow Tachypnea Blood Pressure 142/67 H Blood Pressure [Left Radial Artery] Blood Pressure Mean 92 Blood Pressure Mean [Left Radial Artery] Pulse Oximetry 100 98 Oxygen Delivery Method Non-rebreather Non-rebreather Oxygen Flow Rate 15 Fraction of Inspired Oxygen 100 Sepsis Recent Fever Within 48 Hours No Sepsis New/Unexplained Change in Mental Status No Sepsis Action Taken by Nursing No Action Required 05/09/21 18:59 05/09/21 21:49 05/09/21 22:20 Pulse Rate 72 Pulse Rate [Apical] 94 H 74 Respiratory Rate 26 H 15 18 Respiratory Effort / Characteristics Spontaneous Non-Labored Spontaneous Respiratory Depth Normal Respiratory Pattern Regular Blood Pressure Blood Pressure [Left Radial Artery] 98/62 L Blood Pressure Mean Blood Pressure Mean [Left Radial Artery] 74 Pulse Oximetry 98 100 98 Oxygen Delivery Method BiPAP BiPAP Oxygen Flow Rate Fraction of Inspired Oxygen 100 40 Sepsis Recent Fever Within 48 Hours Sepsis New/Unexplained Change in Mental Status Sepsis Action Taken by Nursing 05/09/21 23:11 Pulse Rate Pulse Rate [Apical] Respiratory Rate 18 Respiratory Effort / Characteristics Moaning Respiratory Depth Respiratory Pattern Blood Pressure Blood Pressure [Left Radial Artery] Blood Pressure Mean Blood Pressure Mean [Left Radial Artery] Pulse Oximetry 96 Oxygen Delivery Method BiPAP Oxygen Flow Rate Fraction of Inspired Oxygen Sepsis Recent Fever Within 48 Hours Sepsis New/Unexplained Change in Mental Status Sepsis Action Taken by Nursing Laboratory Data Attestation: I reviewed the patient's lab results. Result diagrams: 05/09/21 18:20 05/09/21 18:20 Lab Results 05/09/21 05/09/21 05/09/21 Range/Units 18:20 18:20 18:20 WBC 9.51 (4.8-10.8) K/uL RBC 3.52 L (4.7-6.1) M/uL Hgb 11.6 L (14.0-18.0) g/dL Hct 35.3 L (42-52) % MCV 100.3 H (80-100) fL MCH 33.0 (25-34) pg MCHC 32.9 (32-36) g/dL RDW Std Deviation 59.1 H (36.4-46.3) fL RDW Coeff of Kylee 16.5 H (11.5-14.5) % Plt Count 187 (130-400) K/uL MPV 9.5 (7.4-10.4) fL Immature Gran % (Auto) 0.1 % Neut % (Auto) 89.3 % Lymph % (Auto) 2.9 % Swisher % (Auto) 7.0 % Eos % (Auto) 0.6 % Baso % (Auto) 0.1 % Neut # (Auto) 8.48 H (1.4-6.5) K/uL Lymph # (Auto) 0.28 L (1.2-3.4) K/uL Swisher # (Auto) 0.67 H (0.11-0.59) K/uL Eos # (Auto) 0.06 (0-0.5) K/uL Baso # (Auto) 0.01 (0-0.2) K/uL Immature Gran # (Auto) 0.01 (0.00-0.02) K/uL PT (9.0-12.0) Seconds INR (0.9-1.1) APTT (21.0-31.0) Seconds PTT Ratio POC pH (7.35-7.45) POC pCO2 (35-46) mmHg POC pO2 (80-95) mmHg POC HCO3 (19-24) nayan/L POC Total CO2 (24-31) mmol/L POC Base Excess (-9-1.8) nayan/L POC ABG O2 Sat (90-95) % Sodium 139 (136-145) mmol/L Potassium 3.9 (3.5-5.1) mmol/L Chloride 107 (98-107) mmol/L Carbon Dioxide 27 (21-32) mmol/L Anion Gap 6.0 (3-11) BUN 27 H (7-18) mg/dl Creatinine 0.97 (0.6-1.4) mg/dl Est Cr Clr Drug Dosing 57.8 ml/min Est GFR ( Amer) 80.5 ml/min Est GFR (Non-Af Amer) 69.4 ml/min BUN/Creatinine Ratio 27.3 H (10-20) Glucose 171 H (70-99) mg/dl Lactate (0.4-2.0) mmol/L Calcium 8.3 L (8.5-10.1) mg/dl Phosphorus 3.1 (2.5-4.9) mg/dl Magnesium 2.0 (1.8-2.4) mg/dl Total Bilirubin 0.8 (0.2-1) mg/dl Direct Bilirubin 0.2 (0-0.2) mg/dl AST 22 (15-37) U/L ALT 31 (12-78) U/L Alkaline Phosphatase 99 (45-117) U/L Total Creatine Kinase 57 (39-308) U/L Troponin I < 0.015 (0-0.045) ng/ml NT-Pro-B Natriuret Pep 388 (0-1800) pg/ml Total Protein 5.4 L (6.4-8.2) gm/dl Albumin 2.4 L (3.4-5.0) gm/dl Globulin 3.0 (2.5-4.0) gm/dl Albumin/Globulin Ratio 0.8 L (0.9-2) Lipase 42 L (73-393) U/L Procalcitonin 0.12 (0-0.5) ng/ml TSH 12.900 H (0.300-4.500) uIu/ml Free T4 1.29 (0.8-1.6) ng/dl Urine Color Urine Appearance (Clear) Urine pH (4.5-7.5) Ur Specific [place] (1.000-1.030) Urine Protein (Negative) Urine Glucose (UA) (Negative) Urine Ketones (Negative) Urine Blood (Negative) Urine Nitrite (Negative) Urine Bilirubin (Negative) Urine Urobilinogen (Negative) Ur Leukocyte Esterase (Negative) Urine WBC (Auto) (0-5) /hpf Urine RBC (Auto) (0-4) /hpf U Hyaline Cast (Auto) (0-5) /lpf U Epithel Cells (Auto) (0-5) /lpf Urine Bacteria (Auto) (Negative) COVID-19 Eval Order SARS-CoV-2 (PCR) (Negative) 05/09/21 05/09/21 05/09/21 Range/Units 18:34 18:34 18:56 WBC (4.8-10.8) K/uL RBC (4.7-6.1) M/uL Hgb (14.0-18.0) g/dL Hct (42-52) % MCV (80-100) fL MCH (25-34) pg MCHC (32-36) g/dL RDW Std Deviation (36.4-46.3) fL RDW Coeff of Kylee (11.5-14.5) % Plt Count (130-400) K/uL MPV (7.4-10.4) fL Immature Gran % (Auto) % Neut % (Auto) % Lymph % (Auto) % Swisher % (Auto) % Eos % (Auto) % Baso % (Auto) % Neut # (Auto) (1.4-6.5) K/uL Lymph # (Auto) (1.2-3.4) K/uL Swisher # (Auto) (0.11-0.59) K/uL Eos # (Auto) (0-0.5) K/uL Baso # (Auto) (0-0.2) K/uL Immature Gran # (Auto) (0.00-0.02) K/uL PT 11.4 (9.0-12.0) Seconds INR 1.1 (0.9-1.1) APTT 30.3 (21.0-31.0) Seconds PTT Ratio 1.2 POC pH (7.35-7.45) POC pCO2 (35-46) mmHg POC pO2 (80-95) mmHg POC HCO3 (19-24) nayan/L POC Total CO2 (24-31) mmol/L POC Base Excess (-9-1.8) nayan/L POC ABG O2 Sat (90-95) % Sodium (136-145) mmol/L Potassium (3.5-5.1) mmol/L Chloride (98-107) mmol/L Carbon Dioxide (21-32) mmol/L Anion Gap (3-11) BUN (7-18) mg/dl Creatinine (0.6-1.4) mg/dl Est Cr Clr Drug Dosing ml/min Est GFR ( Amer) ml/min Est GFR (Non-Af Amer) ml/min BUN/Creatinine Ratio (10-20) Glucose (70-99) mg/dl Lactate 1.4 (0.4-2.0) mmol/L Calcium (8.5-10.1) mg/dl Phosphorus (2.5-4.9) mg/dl Magnesium (1.8-2.4) mg/dl Total Bilirubin (0.2-1) mg/dl Direct Bilirubin (0-0.2) mg/dl AST (15-37) U/L ALT (12-78) U/L Alkaline Phosphatase (45-117) U/L Total Creatine Kinase (39-308) U/L Troponin I (0-0.045) ng/ml NT-Pro-B Natriuret Pep (0-1800) pg/ml Total Protein (6.4-8.2) gm/dl Albumin (3.4-5.0) gm/dl Globulin (2.5-4.0) gm/dl Albumin/Globulin Ratio (0.9-2) Lipase (73-393) U/L Procalcitonin (0-0.5) ng/ml TSH (0.300-4.500) uIu/ml Free T4 (0.8-1.6) ng/dl Urine Color Urine Appearance (Clear) Urine pH (4.5-7.5) Ur Specific [place] (1.000-1.030) Urine Protein (Negative) Urine Glucose (UA) (Negative) Urine Ketones (Negative) Urine Blood (Negative) Urine Nitrite (Negative) Urine Bilirubin (Negative) Urine Urobilinogen (Negative) Ur Leukocyte Esterase (Negative) Urine WBC (Auto) (0-5) /hpf Urine RBC (Auto) (0-4) /hpf U Hyaline Cast (Auto) (0-5) /lpf U Epithel Cells (Auto) (0-5) /lpf Urine Bacteria (Auto) (Negative) COVID-19 Eval Order Covid19 at [facility] SARS-CoV-2 (PCR) (Negative) 05/09/21 05/09/21 05/09/21 Range/Units 18:56 19:47 21:45 WBC (4.8-10.8) K/uL RBC (4.7-6.1) M/uL Hgb (14.0-18.0) g/dL Hct (42-52) % MCV (80-100) fL MCH (25-34) pg MCHC (32-36) g/dL RDW Std Deviation (36.4-46.3) fL RDW Coeff of Klyee (11.5-14.5) % Plt Count (130-400) K/uL MPV (7.4-10.4) fL Immature Gran % (Auto) % Neut % (Auto) % Lymph % (Auto) % Swisher % (Auto) % Eos % (Auto) % Baso % (Auto) % Neut # (Auto) (1.4-6.5) K/uL Lymph # (Auto) (1.2-3.4) K/uL Swisher # (Auto) (0.11-0.59) K/uL Eos # (Auto) (0-0.5) K/uL Baso # (Auto) (0-0.2) K/uL Immature Gran # (Auto) (0.00-0.02) K/uL PT (9.0-12.0) Seconds INR (0.9-1.1) APTT (21.0-31.0) Seconds PTT Ratio POC pH 7.48 H (7.35-7.45) POC pCO2 45 (35-46) mmHg POC pO2 401 H (80-95) mmHg POC HCO3 34 H (19-24) nayan/L POC Total CO2 35 H (24-31) mmol/L POC Base Excess 10.0 H (-9-1.8) nayan/L POC ABG O2 Sat 100.0 H (90-95) % Sodium (136-145) mmol/L Potassium (3.5-5.1) mmol/L Chloride (98-107) mmol/L Carbon Dioxide (21-32) mmol/L Anion Gap (3-11) BUN (7-18) mg/dl Creatinine (0.6-1.4) mg/dl Est Cr Clr Drug Dosing ml/min Est GFR ( Amer) ml/min Est GFR (Non-Af Amer) ml/min BUN/Creatinine Ratio (10-20) Glucose (70-99) mg/dl Lactate (0.4-2.0) mmol/L Calcium (8.5-10.1) mg/dl Phosphorus (2.5-4.9) mg/dl Magnesium (1.8-2.4) mg/dl Total Bilirubin (0.2-1) mg/dl Direct Bilirubin (0-0.2) mg/dl AST (15-37) U/L ALT (12-78) U/L Alkaline Phosphatase (45-117) U/L Total Creatine Kinase (39-308) U/L Troponin I (0-0.045) ng/ml NT-Pro-B Natriuret Pep (0-1800) pg/ml Total Protein (6.4-8.2) gm/dl Albumin (3.4-5.0) gm/dl Globulin (2.5-4.0) gm/dl Albumin/Globulin Ratio (0.9-2) Lipase (73-393) U/L Procalcitonin (0-0.5) ng/ml TSH (0.300-4.500) uIu/ml Free T4 (0.8-1.6) ng/dl Urine Color Yellow Urine Appearance Clear (Clear) Urine pH 6.0 (4.5-7.5) Ur Specific [place] 1.021 (1.000-1.030) Urine Protein Negative (Negative) Urine Glucose (UA) 3+ H (Negative) Urine Ketones Negative (Negative) Urine Blood Trace H (Negative) Urine Nitrite Negative (Negative) Urine Bilirubin Negative (Negative) Urine Urobilinogen Negative (Negative) Ur Leukocyte Esterase Negative (Negative) Urine WBC (Auto) 0 (0-5) /hpf Urine RBC (Auto) 0-4 (0-4) /hpf U Hyaline Cast (Auto) 0 (0-5) /lpf U Epithel Cells (Auto) 0-5 (0-5) /lpf Urine Bacteria (Auto) Negative (Negative) COVID-19 Eval Order SARS-CoV-2 (PCR) NEGATIVE (Negative) Administered Medications Sodium Chloride (Nss) 500 mls @ 125 mls/hr IV .Q4H NILESH Stop: 06/08/21 21:14 Last Admin: 05/09/21 21:30 Dose: 125 mls/hr Documented by: [id number] Discontinued Medications Albuterol (Albut/Ipratrop 3mg/0.5mg Neb 3 Ml Vial) 3 ml NEB NOW STA Stop: 05/09/21 18:23 Last Admin: 05/09/21 18:45 Dose: 3 ml Documented by: [id number] Piperacillin Sod/Tazobactam Sod (Zosyn) 4.5 gm in 120 mls @ 240 mls/hr IV NOW ONE Stop: 05/09/21 18:59 Last Admin: 05/09/21 19:31 Dose: 240 mls/hr Documented by: [id number] Ioversol (Optiray 320 125ml) 120 ml IV ONCE ONE Stop: 05/09/21 19:44 Last Admin: 05/09/21 19:43 Dose: 120 ml Documented by: [id number] Imaging Data Radiologist's Impression: Chest X-Ray 05/09/21 18:22 XR chest 1V portable CLINICAL HISTORY: SEPSIS COMPARISON STUDY: Chest CT April 21, 2021. Chest radiograph May 06, 2021. FINDINGS: A left PICC is in place. There is no pneumothorax or pleural effusion. Cardiomediastinal silhouette is stable. Bibasilar opacities, greater on the right, have developed. There is no evidence for pulmonary edema. IMPRESSION: Bibasilar opacities, greater on the right. The findings favor pneumonia. Radiographic follow-up to ensure resolution is recommended. ACT 112: Negative or not required by law. Electronically signed by: Mendel Shelby M.D. 05/09/2021 7:04 PM Foot X-Ray 05/09/21 18:28 XR foot LT 2V CLINICAL HISTORY: sepsis, h/o osteo COMPARISON: Left ankle radiographs April 22, 2021. MRI of the left ankle April 23, 2021. FINDINGS: Soft tissue swelling is present. There is extensive vascular calcification. Evaluation of the pelvis is suboptimal. No acute fracture is identified. There is no radiographic evidence of acute osteomyelitis. IMPRESSION: No acute fracture. No radiographic evidence for acute osteomyelitis. ACT 112: Negative or not required by law. Electronically signed by: Mendel Shelyb M.D. 05/09/2021 7:07 PM Foot X-Ray 05/09/21 18:28 XR foot RT 2V CLINICAL HISTORY: sepsis, h/o osteo COMPARISON: Right foot radiographs October 14, 2017. FINDINGS: Evaluation of the right foot is suboptimal given chronic deformity of the toes. No acute fracture is noted. Similar alignment was shown on radiographs of October 14, 2017. No acute fracture is identified. There is no radiographic evidence for acute osteomyelitis. IMPRESSION: Difficult exam to interpret given chronic deformity of the toes. However, no acute fracture or radiographic evidence for acute osteomyelitis. ACT 112: Negative or not required by law. Electronically signed by: Mendel Shelby M.D. 05/09/2021 7:09 PM Discharge Plan Visit Data Chief Complaint: Shortness of Breath/Dyspnea Stated Complaint: SOB, CHF, LEG EDEMA Discharge Problem: Acute respiratory failure with hypoxia, Diastolic heart failure, Unstageable pressure ulcer of heel, Aspiration pneumonia, Bilateral leg edema, History of cerebrovascular accident
[2021-05-09 19:06] LABS: Alanine Aminotransferase 31 U/L (12-78); Albumin Level 2.4 gm/dl (3.4-5.0); Aspartate Aminotransferase 22 U/L (15-37); BUN Creatinine Ratio 27.3 (10-20); Bilirubin Direct 0.2 mg/dl (0-0.2); Blood Urea Nitrogen 27 mg/dl (7-18); Calcium 8.3 mg/dl (8.5-10.1); Carbon Dioxide 27 mmol/L (21-32); Chloride 107 mmol/L (98-107); Creatinine Clr Calc Pharmacy 57.8 ml/min; Est GFR (African American) 80.5 ml/min; Est GFR (Non-African American) 69.4 ml/min; Glucose 171 mg/dl (70-99); Lipase 42 U/L (73-393); Potassium 3.9 mmol/L (3.5-5.1); Sodium 139 mmol/L (136-145)
--- NOTE | 2021-05-09 19:06 | XRay Report ---
XR chest 1V portable CLINICAL HISTORY: SEPSIS COMPARISON STUDY: Chest CT April 21, 2021. Chest radiograph May 06, 2021. FINDINGS: A left PICC is in place. There is no pneumothorax or pleural effusion. Cardiomediastinal si lhouette is stable. Bibasilar opacities, greater on the right, have developed. There is no evidence f or pulmonary edema. IMPRESSION: Bibasilar opacities, greater on the right. The findings favor pneumonia. Radiographic fo llow-up to ensure resolution is recommended. ACT 112: Negative or not required by law. Electronically signed by: Mendel Shelby M.D. 05/09/2021 7:04 PM
--- NOTE | 2021-05-09 19:08 | XRay Report ---
XR foot LT 2V CLINICAL HISTORY: sepsis, h/o osteo COMPARISON: Left ankle radiographs April 22, 2021. MRI of the left ankle April 23, 2021. FINDINGS: Soft tissue swelling is present. There is extensive vascular calcification. Evaluation of the pelvis is suboptimal. No acute fracture is identified. There is no radiographic evidence of acute osteomyelitis. IMPRESSION: No acute fracture. No radiographic evidence for acute osteomyelitis. ACT 112: Negative or not required by law. Electronically signed by: Mendel Shelby M.D. 05/09/2021 7:07 PM
--- NOTE | 2021-05-09 19:10 | XRay Report ---
XR foot RT 2V CLINICAL HISTORY: sepsis, h/o osteo COMPARISON: Right foot radiographs October 14, 2017. FINDINGS: Evaluation of the right foot is suboptimal given chronic deformity of the toes. No acute f racture is noted. Similar alignment was shown on radiographs of October 14, 2017. No acute fracture is identified. There is no radiographic evidence for acute osteomyelitis. IMPRESSION: Difficult exam to interpret given chronic deformity of the toes. However, no acute fractu re or radiographic evidence for acute osteomyelitis. ACT 112: Negative or not required by law. Electronically signed by: Mendel Shelby M.D. 05/09/2021 7:09 PM
[2021-05-09 19:15] LABS: Albumin Globulin Ratio 0.8 (0.9-2); Alkaline Phosphatase 99 U/L (45-117); Bilirubin,Total 0.8 mg/dl (0.2-1); Creatine Kinase 57 U/L (39-308); NT Pro B Type Natriuretic Pept 388 pg/ml (0-1800); Phosphorus 3.1 mg/dl (2.5-4.9); Total Protein 5.4 gm/dl (6.4-8.2); Troponin I < 0.015 ng/ml (0-0.045)
[2021-05-09] MEDS ORDERED: OPTIRAY 320 125ml IV ONE (19:43)
[2021-05-09 20:08] LABS: Appearance Urine Clear (Clear); Bacteria Urine Automated Negative (Negative); Bilirubin Urine Negative (Negative); Blood Urine Trace (Negative); Cast Urine Automated 0 /lpf (0-5); Color Urine Yellow; Epithelial Cell Urine Auto 0-5 /lpf (0-5); Glucose Urine UA 3+ (Negative); Ketones Urine Negative (Negative); Leukocyte Esterase Urine Negative (Negative); Nitrite Urine Negative (Negative); Protein Urine Negative (Negative); RBC Urine Automated 0-4 /hpf (0-4); Specific Gravity Urine 1.021 (1.000-1.030); Urobilinogen Urine Negative (Negative); WBC Urine Automated 0 /hpf (0-5)
[2021-05-09 21:14] LABS: T4 Free Thyroxine 1.29 ng/dl (0.8-1.6)
[2021-05-09] MEDS ORDERED: SODIUM CHLORIDE 0.9% 500 ML IV SCH (21:15)
[2021-05-09 22:07] LABS: iSTAT Arterial Blood Gas HCO3 34 meg/L (19-24); iSTAT Arterial Blood Gas pCO2 45 mmHg (35-46); iSTAT Arterial Blood Gas pH 7.48 (7.35-7.45); iSTAT Arterial Blood Gas pO2 401 mmHg (80-95); iSTAT Carbon Dioxide 35 mmol/L (24-31)
--- NOTE | 2021-05-09 22:19 | History & Physical Report ---
Date of Service May 09, 2021 Assessment & Plan (1) Acute respiratory failure with hypoxia: Plan: Patient with acute hypoxic respiratory failure requiring rescue BiPAP in ER. Possibly secondary to aspiration event. Patient presently afebrile, HD stable. He has been weaned down to NC 4L with saturation of 93%. CT with worsening of dependent infiltrates suggestive of ongoing aspiration. -Admit to PCU -BiPAP as needed -Supplemental O2 -Zosyn -Aspiration precautions, assistance with meals as needed, nectar thick liquids (for now) -Patient was evaluated by Speech Therapy on 04/23/21. Recommendations noted. Family in agreement with permissive aspiration of thin liquids (2) Acute alteration in mental status: Plan: Patient is awake and alert upon my evaluation. -Treatment of underlying medical issues -Frequent orientation, delirium prevention strategies -He is very hard of hearing and does not have his hearing aides with him at this time (3) Unstageable pressure ulcer of heel: Plan: S/p incision and drainage -Offload heels -Wound care daily and as needed -Oxycodone 5mg po q 12 hours - will change to PRN (4) Peripheral arterial disease: Plan: Chronic. Noted on US arterial doppler. Patient has been seen by Vascular Surgery in the past. Had angiography performed on 04/28 which showed occlusion of anterior and posterior tibial arteries with patent peroneal. No intervention required. -Continue Plavix and Crestor (5) Osteomyelitis of ankle: Plan: Patient on Ceftriaxone x 6 week course -Treatment for possible aspiration event with Zosyn for now -May resume Ceftriaxone on discharge to complete course (6) History of cerebrovascular accident: Plan: Chronic -Continue Plavix and Crestor (7) Diabetes: Plan: Chronic. Well controlled. A1C=7.4 in February 2021. -Hold oral agents -Lantus 4u BID -ISS (8) Hypothyroid: Plan: Chronic. Elevated TSH with normal T4 -Continue Synthroid 100mcg daily (9) Atrial flutter: Plan: Patient with post-operative atrial flutter and fibrillation. No documented recurrence. -Continue Diltiazem 240mg po daily (10) Hypertension: Plan: Blood pressure well controlled at present 119/88 -Continue Diltiazem -Continue to monitor Plan: F/E/N - Heplock. Management of PICC line per protocol - NSS flush with heparin. AHA/CC/diet as tolerated. Easy to chew with nectar thick liquids for now. Family stated during prior hospital stay that they are ok with permissive aspiration of thin liquids. Monitor electrolytes and replete as needed. Ppx - On Lovenox 40mg daily, continue Code - DNR/DNI per discussion with and review of paperwork Dispo - Admit to PCU History of Present Illness Chief Complaint: hypoxia Primary Care Provider: [facility] Eligio Morrell is an 86yo male with history of HTN, HLP, DM, Atrial flutter. Patient was admitted to [facility] in February 2021 with an acute posterior left frontal lobe infarct and severe stenosis of the proximal right ICA. He had a carotid endarterectomy performed by Dr. Leon on 03/02/21. He was discharged to [facility] then subsequently [facility]. He returned to [facility] on 04/21/21 with confusion/AMS and hypoxia. He was found to have diabetic foot infection with possible osteomyelitis of the left ankle. He had an I&D performed on 05/01/21 of his left heel ulcer by Dr. London. He was discharged on IV Ceftriaxone to complete a 6 week course. Patient was discharged on 05/07/21 to [facility]. is at bedside and provides history. She states that she was contacted by [facility] today because patient was reportedly hypoxic and confused. There was also concern that his PICC line was not functioning and that he may be retaining fluid. She said that she spoke with him on the phone he had a very wet cough. states that visitation is quite limited at [facility] due to Covid-19 precautions. She is not able to visit her often and is not updated regularly on his condition. She denies mention of other symptoms, specifically fever, vomiting, diarrhea. She is fairly certain that her had an aspiration event which led to his decreased oxygenation today. She reports that his mental status has been waxing and waning since the stroke in February. At times he is engaged in conversation but mostly is tired. He does not ambulate and is mostly bed ridden. He requires assistance with ADLs. Patient in respiratory distress upon arrival - RR of 26. He was placed on BiPAP in the ER - initially 10/5 100% FiO2 - ABG on those settings 7.48/45/407. His FiO2 was decreased to 40%. SpO2 maintained >92%. He was transported upstairs on nasal cannula without difficulty. Allergies Allergy/AdvReac Type Severity Reaction Status Date / Time metoprolol AdvReac Mild GI SYMPTOMS Verified 05/09/21 17:56 Home Medications Medication Instructions Recorded Confirmed Type cholecalciferol (vitamin D3) 25 1,000 unit PO QAM 05/30/19 05/09/21 History mcg (1,000 unit) capsule (Vitamin D3) tamsulosin 0.4 mg capsule (Flomax) 0.4 mg PO HS 05/30/19 05/09/21 History levothyroxine 100 mcg tablet 100 mcg PO DAILYBB 02/16/21 05/09/21 History (Synthroid) rosuvastatin 20 mg tablet (Crestor) 20 mg PO QAM #30 tab 03/03/21 05/09/21 Rx acetaminophen 325 mg capsule 650 mg PO Q6 PRN 04/21/21 05/09/21 History (Tylenol) diltiazem HCl 120 mg 240 mg PO QAM 04/21/21 05/09/21 History capsule,extended release 12 hr metformin 1,000 mg tablet 1,000 mg PO BID 04/21/21 05/09/21 History sennosides 8.6 mg-docusate sodium 3 tab-cap PO QAM 04/21/21 05/09/21 History 50 mg capsule (Senna Plus) ceftriaxone 2 gram intravenous 2 g IV Q24H 05/09/21 05/09/21 History solution clopidogrel 75 mg tablet (Plavix) 75 mg PO QAM 05/09/21 05/09/21 History docusate sodium 100 mg capsule 100 mg PO BIDM 05/09/21 05/09/21 History (Colace) empagliflozin 10 mg tablet 10 mg PO QAM 05/09/21 05/09/21 History (Jardiance) enoxaparin 40 mg/0.4 mL 40 mg SUBCUT Q24H 05/09/21 05/09/21 History subcutaneous syringe (Lovenox) furosemide 20 mg tablet (Lasix) 40 mg PO QAM 05/09/21 05/09/21 History heparin lock flush (porcine) 10 50 unit IV QS 05/09/21 05/09/21 History unit/mL intravenous solution oxycodone 5 mg tablet (Roxicodone) 5 mg PO Q12 05/09/21 05/09/21 History sodium chloride 0.9 % (flush) 10 ml IV QS 05/09/21 05/09/21 History (Normal Saline Flush) Past Med/Surg History Medical History (Updated 05/10/21 @ 01:24 by Gwendolyn Truong DO) Anemia Atrial flutter BPH (benign prostatic hyperplasia) Carotid stenosis Cellulitis Chronic kidney disease Diabetes History of aortic stenosis s/p avr Hyperlipidemia Hypertension Hypothyroid Peripheral arterial disease Squamous cell carcinoma Multiple Stroke Surgical History S/P AVR (aortic valve replacement) Bioprosthetic (25 mm Buenrostro 2 porcine valve) October 2016 Family History Uncle Parkinson disease Brother Parkinson disease Other Family history non-contributory Social History Smoking Status: Former smoker Second Hand Exposure: No; Hx Alcohol Use: No Hx Substance Use: No Preferred Language: Fijian Communication Ability: Effective Hotel [employer]creational Facilities Manager Required: No Beliefs That Will Affect Care: None Current Living Situation: [facility] Current Living Situation Comment: home alone with spouse. Feels Safe at Home: Yes Safety Concerns: Feels Safe At This Time Assistive Devices: Glasses, Hearing Aid - Bilateral and Oxygen - Continuous Review of Systems Review of Systems: All systems reviewed & are unremarkable except as noted in HPI & below Physical Exam Physical Exam: General: frail, elderly mal patient resting comfortably, BiPAP in place at 10/5 40%, hard of hearing, NAD Skin: thin, left heel with black eschar, right heel with ulcer, dressing in place, skin tear on left forearm HEENT: NC/AT, PERRL, EOMI, anicteric sclera, conjunctiva without injection, external ear normal to inspection and nontender, nares patent, moist mucus membranes, dentition intact, no oropharyngeal lesions, neck supple, trachea midline, no LAD, no thyromegaly, no JVD Heart: +S1/S2, regular, no m/r/g Lungs: equal air entry bilaterally, diminished in bases Abd: +BS, soft, NT/ND, no masses/organomegaly/ascites Ext: cool, heel wounds as above - eschar on left, ulcer on right, no purulence, diminished pulses, 2+ edema Neuro: patient answering questions and following commands Results & Data Results & Data ([facility]) Vital Signs (Past 12 Hours) Vital Signs Pulse Pulse Resp BP Pulse Ox 05/09/21 21:49 72 15 100 05/09/21 18:59 94 H 26 H 98 05/09/21 18:56 86 26 H 98 05/09/21 17:50 82 18 142/67 H 100 Laboratory Results Laboratory Results WBC 9.51 K/uL (4.8-10.8) 05/09/21 18:20 RBC 3.52 M/uL (4.7-6.1) L 05/09/21 18:20 Hgb 11.6 g/dL (14.0-18.0) L 05/09/21 18:20 Hct 35.3 % (42-52) L 05/09/21 18:20 MCV 100.3 fL (80-100) H 05/09/21 18:20 MCH 33.0 pg (25-34) 05/09/21 18:20 MCHC 32.9 g/dL (32-36) 05/09/21 18:20 RDW Std Deviation 59.1 fL (36.4-46.3) H 05/09/21 18:20 RDW Coeff of Kylee 16.5 % (11.5-14.5) H 05/09/21 18:20 Plt Count 187 K/uL (130-400) 05/09/21 18:20 MPV 9.5 fL (7.4-10.4) 05/09/21 18:20 Immature Gran % (Auto) 0.1 % 05/09/21 18:20 Neut % (Auto) 89.3 % 05/09/21 18:20 Lymph % (Auto) 2.9 % 05/09/21 18:20 Angelina % (Auto) 7.0 % 05/09/21 18:20 Eos % (Auto) 0.6 % 05/09/21 18:20 Baso % (Auto) 0.1 % 05/09/21 18:20 Neut # (Auto) 8.48 K/uL (1.4-6.5) H 05/09/21 18:20 Lymph # (Auto) 0.28 K/uL (1.2-3.4) L 05/09/21 18:20 Angelina # (Auto) 0.67 K/uL (0.11-0.59) H 05/09/21 18:20 Eos # (Auto) 0.06 K/uL (0-0.5) 05/09/21 18:20 Baso # (Auto) 0.01 K/uL (0-0.2) 05/09/21 18:20 Immature Gran # (Auto) 0.01 K/uL (0.00-0.02) 05/09/21 18:20 PT 11.4 Seconds (9.0-12.0) 05/09/21 18:34 INR 1.1 (0.9-1.1) 05/09/21 18:34 APTT 30.3 Seconds (21.0-31.0) 05/09/21 18:34 PTT Ratio 1.2 05/09/21 18:34 POC pH 7.48 (7.35-7.45) H 05/09/21 21:45 POC pCO2 45 mmHg (35-46) 05/09/21 21:45 POC pO2 401 mmHg (80-95) H 05/09/21 21:45 POC HCO3 34 nayan/L (19-24) H 05/09/21 21:45 POC Total CO2 35 mmol/L (24-31) H 05/09/21 21:45 POC Base Excess 10.0 nayan/L (-9-1.8) H 05/09/21 21:45 POC ABG O2 Sat 100.0 % (90-95) H 05/09/21 21:45 Sodium 139 mmol/L (136-145) 05/09/21 18:20 Potassium 3.9 mmol/L (3.5-5.1) 05/09/21 18:20 Chloride 107 mmol/L (98-107) 05/09/21 18:20 Carbon Dioxide 27 mmol/L (21-32) 05/09/21 18:20 Anion Gap 6.0 (3-11) 05/09/21 18:20 BUN 27 mg/dl (7-18) H 05/09/21 18:20 Creatinine 0.97 mg/dl (0.6-1.4) 05/09/21 18:20 Est Cr Clr Drug Dosing 57.8 ml/min 05/09/21 18:20 Est GFR ( Amer) 80.5 ml/min 05/09/21 18:20 Est GFR (Non-Af Amer) 69.4 ml/min 05/09/21 18:20 BUN/Creatinine Ratio 27.3 (10-20) H 05/09/21 18:20 Glucose 171 mg/dl (70-99) H 05/09/21 18:20 Lactate 1.4 mmol/L (0.4-2.0) 05/09/21 18:34 Calcium 8.3 mg/dl (8.5-10.1) L 05/09/21 18:20 Phosphorus 3.1 mg/dl (2.5-4.9) 05/09/21 18:20 Magnesium 2.0 mg/dl (1.8-2.4) 05/09/21 18:20 Total Bilirubin 0.8 mg/dl (0.2-1) 05/09/21 18:20 Direct Bilirubin 0.2 mg/dl (0-0.2) 05/09/21 18:20 AST 22 U/L (15-37) 05/09/21 18:20 ALT 31 U/L (12-78) 05/09/21 18:20 Alkaline Phosphatase 99 U/L (45-117) 05/09/21 18:20 Total Creatine Kinase 57 U/L (39-308) 05/09/21 18:20 Troponin I < 0.015 ng/ml (0-0.045) 05/09/21 18:20 NT-Pro-B Natriuret Pep 388 pg/ml (0-1800) 05/09/21 18:20 Total Protein 5.4 gm/dl (6.4-8.2) L 05/09/21 18:20 Albumin 2.4 gm/dl (3.4-5.0) L 05/09/21 18:20 Globulin 3.0 gm/dl (2.5-4.0) 05/09/21 18:20 Albumin/Globulin Ratio 0.8 (0.9-2) L 05/09/21 18:20 Lipase 42 U/L (73-393) L 05/09/21 18:20 Procalcitonin 0.12 ng/ml (0-0.5) 05/09/21 18:20 TSH 12.900 uIu/ml (0.300-4.500) H 05/09/21 18:20 Free T4 1.29 ng/dl (0.8-1.6) 05/09/21 18:20 Urine Color Yellow 05/09/21 19:47 Urine Appearance Clear (Clear) 05/09/21 19:47 Urine pH 6.0 (4.5-7.5) 05/09/21 19:47 Ur Specific [place] 1.021 (1.000-1.030) 05/09/21 19:47 Urine Protein Negative (Negative) 05/09/21 19:47 Urine Glucose (UA) 3+ (Negative) H 05/09/21 19:47 Urine Ketones Negative (Negative) 05/09/21 19:47 Urine Blood Trace (Negative) H 05/09/21 19:47 Urine Nitrite Negative (Negative) 05/09/21 19:47 Urine Bilirubin Negative (Negative) 05/09/21 19:47 Urine Urobilinogen Negative (Negative) 05/09/21 19:47 Ur Leukocyte Esterase Negative (Negative) 05/09/21 19:47 Urine WBC (Auto) 0 /hpf (0-5) 05/09/21 19:47 Urine RBC (Auto) 0-4 /hpf (0-4) 05/09/21 19:47 U Hyaline Cast (Auto) 0 /lpf (0-5) 05/09/21 19:47 U Epithel Cells (Auto) 0-5 /lpf (0-5) 05/09/21 19:47 Urine Bacteria (Auto) Negative (Negative) 05/09/21 19:47 COVID-19 Eval Order Covid19 at [facility] 05/09/21 18:56 SARS-CoV-2 (PCR) NEGATIVE (Negative) 05/09/21 18:56 Impressions Chest X-Ray 05/09/21 18:22 XR chest 1V portable CLINICAL HISTORY: SEPSIS COMPARISON STUDY: Chest CT April 21, 2021. Chest radiograph May 06, 2021. FINDINGS: A left PICC is in place. There is no pneumothorax or pleural effusion. Cardiomediastinal silhouette is stable. Bibasilar opacities, greater on the right, have developed. There is no evidence for pulmonary edema. IMPRESSION: Bibasilar opacities, greater on the right. The findings favor pneumonia. Radiographic follow-up to ensure resolution is recommended. ACT 112: Negative or not required by law. Electronically signed by: Mendel Shelby M.D. 05/09/2021 7:04 PM Foot X-Ray 05/09/21 18:28 XR foot RT 2V CLINICAL HISTORY: sepsis, h/o osteo COMPARISON: Right foot radiographs October 14, 2017. FINDINGS: Evaluation of the right foot is suboptimal given chronic deformity of the toes. No acute fracture is noted. Similar alignment was shown on radiographs of October 14, 2017. No acute fracture is identified. There is no radiographic evidence for acute osteomyelitis. IMPRESSION: Difficult exam to interpret given chronic deformity of the toes. However, no acute fracture or radiographic evidence for acute osteomyelitis. ACT 112: Negative or not required by law. Electronically signed by: Mendel Shelby M.D. 05/09/2021 7:09 PM PG Care Time/CCT Total # of Minutes Spent Total Time Spent with Patient: Total time spent is greater than 50% in coordination of care (as documented) at patient's floor/unit and/or counseling patient: Coding Level of Care Code 29551 Initial Inpt Care Lvl 3 Diagnoses Acute alteration in mental status R41.82 Unstageable pressure ulcer of heel L89.600 Laterality: unspecified laterality Peripheral arterial disease I73.9 Osteomyelitis of ankle M86.172 Osteomyelitis type: other acute Laterality: left History of cerebrovascular accident Z86.73 Acute respiratory failure with hypoxia J96.01 Diabetes E11.59 Diabetes mellitus type: type 2 Diabetes mellitus vermin exterminator insulin use: without vermin exterminator use Diabetes mellitus complication status: with circulatory complication Diabetes mellitus complication detail: with other circulatory complications Hypothyroid E03.9 Hypothyroidism type: unspecified Atrial flutter I48.92 Atrial flutter type: unspecified Hypertension I10 Hypertension type: essential hypertension (1) Unstageable pressure ulcer of heel Laterality: unspecified laterality Qualified Code(s): L89.600 - Pressure ulcer of unspecified heel, unstageable (2) Osteomyelitis of ankle Osteomyelitis type: other acute Laterality: left Qualified Code(s): M86.172 - Other acute osteomyelitis, left ankle and foot (3) Diabetes Diabetes mellitus type: type 2 Diabetes mellitus vermin exterminator insulin use: without retirement use Diabetes mellitus complication status: with circulatory complication Diabetes mellitus complication detail: with other circulatory complications Qualified Code(s): E11.59 - Type 2 diabetes mellitus with other circulatory complications (4) Hypothyroid Hypothyroidism type: unspecified Qualified Code(s): E03.9 - Hypothyroidism, unspecified (5) Atrial flutter Atrial flutter type: unspecified Qualified Code(s): I48.92 - Unspecified atrial flutter (6) Hypertension Hypertension type: essential hypertension Qualified Code(s): I10 - Essential (primary) hypertension
[2021-05-10] MEDS ORDERED: oxyCODONE HCL IR 5 MG TAB (IMMEDIATE RELEASE) PO PRN (00:19)
[2021-05-10] MEDS ORDERED: DEXTROSE 50% 50 ML SYRINGE IV PRN (00:19)
[2021-05-10] MEDS ORDERED: GLUCOSE 10 TABS/TUBE PO PRN (00:19)
[2021-05-10] MEDS ORDERED: CARBOHYDRATES FOR HYPOGLYCEMIA PO PRN (00:19)
[2021-05-10] MEDS ORDERED: PIPERACILL/TAZOBAC CONSULT ACTIVE PRN (00:19)
[2021-05-10] MEDS ORDERED: GLUCOSE 40% GEL 15 GM TUBE PO PRN (00:19)
[2021-05-10] MEDS ORDERED: GLUCAGON FOR INJ 1 MG VIAL SQ PRN (00:19)
[2021-05-10] MEDS ORDERED: ACETAMINOPHEN 325 MG TAB PO PRN (00:19)
[2021-05-10] MEDS: SODIUM CHLORIDE 0.9% 10ML FLUSH IV SCH ×3 (00:54→16:39)
[2021-05-10] MEDS: PIPERACILLIN/TAZOBACTAM 3.375 GM in DEXTROSE 5% 100 ML IV SCH ×3 (03:00→17:34)
[2021-05-10] MEDS: ENOXAPARIN INJ 40 MG/0.4 ML SYR SQ SCH (06:31)
[2021-05-10] MEDS: LEVOTHYROXINE SODIUM 100 MCG TABLET PO SCH (06:32)
--- NOTE | 2021-05-10 06:33 | CT Scan Report ---
CT head/brain wo con CLINICAL HISTORY: ams COMPARISON STUDY: April 21, 2021 TECHNIQUE: Axial CT of the brain is performed from the vertex to the skull base. IV contrast was not administered for this examination. A dose lowering technique was utilized adhering to the principles of ALARA. CT DOSE: FINDINGS: Limited study due to motion and beam hardening artifact despite multiple attempts. No intra or extra-axial mass lesions are visualized. There is no CT evidence of acute cortical infarc tion. There is no evidence of midline shift. There is no acute hemorrhage. No acute depressed calvar ial fractures are visualized. There are patchy white matter hypodensities likely on a small vessel basis. Atrophic changes of brain parenchyma associated with ex vacuo dilatation of ventricles are again seen . Calcification of the tentorium and falx are again seen. There is no evidence of acute sinusitis IMPRESSION: No acute intracranial hemorrhage, no midline shift or space occupying lesions. Atrophic changes of brain parenchyma associated with ex vacuo dilatation of ventricles. Chronic small vessel ischemia. Limited exam due to motion and beam hardening artifact despite multiple attempts. ACT 112: Negative or not required by law. The above report was generated using voice recognition software. It may contain grammatical, syntax o r spelling errors. Electronically signed by: Steph Villagran DO 05/10/2021 6:31 AM
--- NOTE | 2021-05-10 06:52 | CT Scan Report ---
CT ANGIOGRAM OF THE CHEST CLINICAL HISTORY: PE COMPARISON STUDY: April 21, 2021 TECHNIQUE: Following the IV administration of 120 mL of Optiray, CT angiogram of the thorax was perfo rmed from the thoracic inlet to the lung bases utilizing the pulmonary embolus protocol. Images are r eviewed in the axial, sagittal, and coronal planes. IV contrast was administered without complication . MIP imaging was performed. A dose lowering technique was utilized adhering to the principles of AL KWAKU. CT DOSE: FINDINGS: There is adequate opacification of the main pulmonary artery. Evaluation of peripheral branches of pu lmonary artery is limited due to motion artifact. Also quality of study is further degraded due to beam hardening artifact from patient's arms. There is no acute central pulmonary embolus is seen. No right heart strain. Minimal four-chamber card iomegaly without pericardial effusion. Prosthetic aortic valve and heavy calcifications of mitral ana ulus are seen. Severe calcifications of the coronary arteries are demonstrated. Main pulmonary artery is normal in caliber. There is dilatation of right and left pulmonary arteries which could be seen in pulmonary hypertension. No pathologically enlarged axillary mediastinal or hilar lymph nodes were visualized. There was no evidence of thoracic aortic dilatation. Tracheobronchial tree is patent. Mild interval worsening of bilateral pleural effusion and associated consolidative opacities at dependent portions of bilateral lower lobes which could represent malinda sive atelectasis and/or pneumonia. No pleural effusions are visualized. Limited evaluation of upper abdominal viscera shows calculi within bilateral renal pelvises and possi ble hydronephrosis on the left however evaluation is limited due to motion and beam hardening artifac t. Osseous structures are diffusely demineralized. Multilevel compression fracture deformities of the T6 , T7, T8, T11 and L1 are again seen. IMPRESSION: 1. No acute central pulmonary embolus. Evaluation of peripheral branches of pulmonary arteries is li mited due to beam hardening and motion artifact. No evidence of right heart strain. 2. Interval worsening of bilateral pleural effusion and consolidative opacities at dependent portion s of bilateral lower lobes which could represent atelectasis and pneumonia. 3. Bilateral nephrolithiasis. Possible hydronephrosis on the left. Limited exam. 4. Multilevel compression fracture deformities of the spine. 5. The rest of findings as above. ACT 112: Negative or not required by law. The above report was generated using voice recognition software. It may contain grammatical, syntax o r spelling errors. Electronically signed by: Steph Villagran DO 05/10/2021 6:50 AM
--- NOTE | 2021-05-10 07:05 | CT Scan Report ---
CT abd pelvis IV con only CLINICAL HISTORY: sepsis COMPARISON STUDY: November 10, 2016 TECHNIQUE: A dose lowering technique was utilized adhering to the principles of ALARA. CT DOSE: 2353.44 mGy.cm FINDINGS: Limited exam due to motion and beam hardening artifact Lower chest: For description of the chest findings please refer to report of the CT chest which was p erformed at the same time.. Liver: The contrast-enhanced liver is normal in size, contour, and attenuation. There is no intrahepa tic biliary ductal dilatation. The hepatic veins and portal veins are patent. Gallbladder: Is fluid-filled and dilated. No definite gallstones or pericholecystic edema is seen how ever evaluation is limited due to motion and beam hardening artifact. Spleen: Normal in size and attenuation. Extensive calcifications of the splenic vessels are seen. Pancreas: Is not well seen, possibly atrophic. Adrenal glands: Right adrenal gland is unremarkable. Left adrenal gland is not well seen. Kidneys: 7 mm nonobstructive nephrolithiasis on the right. Punctate calculus within left renal pelvis and peripelvic cysts. No definite renal lesions or cysts are seen however evaluation is limited. Pelvic viscera: Urinary bladder is decompressed with Cisse balloon within its lumen which limits eval uation. Prostate gland is not enlarged. Bowel: Bowel loops are nondilated. Appendix is not seen. Dilated rectum filled with stool which could represent fecal impaction. Diverticulosis of sigmoid colon without definite evidence of diverticulit is however evaluation is limited due to diffuse mesenteric and subcutaneous edema. Peritoneum: There is no intraperitoneal free air or abdominal ascites. Vasculature: Abdominal aorta is normal in caliber, tortuous and heavily calcified. Adenopathy: None. Skeletal structures: Calcifications within bilateral psoas muscles. Severe diffuse osteopenia. Compre ssion fracture deformity of L1 mild anterolisthesis of L4 on L5. IMPRESSION: 1. Fecal impaction. 2. Dilated gallbladder without definite gallstones or surrounding inflammatory changes. Please corre late above-mentioned findings with right upper quadrant and tenderness. 3. Bilateral nonobstructive nephrolithiasis. Peripelvic cysts on the left. 4. Diverticulosis of sigmoid colon without evidence of diverticulitis. 5. Diffuse mesenteric and subcutaneous edema. 6. Multilevel compression deformities of the vertebral bodies. Severe osteopenia. 7. Atherosclerosis. 8. The rest of findings as above. 9. Limited exam due to motion and beam hardening artifact. ACT 112: Negative or not required by law. The above report was generated using voice recognition software. It may contain grammatical, syntax o r spelling errors. Electronically signed by: Steph Villagran DO 05/10/2021 7:04 AM
[2021-05-10] MEDS: INSULIN ASPART 100 UNITS/ML 3 ML PEN SC SCH ×3 (08:09→17:34)
[2021-05-10] MEDS: INSULIN GLARGINE SOLOSTAR 100 UNITS/ML 3 ML PEN SC SCH ×2 (08:10→19:58)
[2021-05-10] MEDS: DOCUSATE SODIUM 100 MG CAP PO SCH ×2 (08:47→16:39)
[2021-05-10] MEDS: ROSUVASTATIN CALCIUM 20 MG TAB PO SCH (08:48)
[2021-05-10] MEDS ORDERED: FUROSEMIDE 40 MG TAB PO SCH (09:00)
[2021-05-10] MEDS ORDERED: dilTIAZem ER 120 MG CAPCR PO SCH (09:00)
[2021-05-10] MEDS ORDERED: DOCUSATE SODIUM/SENNA 50/8.6MG TAB PO SCH (09:00)
[2021-05-10] MEDS ORDERED: FUROSEMIDE 20 MG in SYRINGE 0 ML IV SCH (09:00)
[2021-05-10] MEDS: CLOPIDOGREL BISULFATE 75 MG TAB PO SCH (09:45)
--- NOTE | 2021-05-10 11:35 | Hospitalist Progress Note ---
Date of Service May 10, 2021 Assessment & Plan (1) Acute respiratory failure with hypoxia: Plan: Rapid recovery after significant hypoxia again fits with aspiration whether he has an pneumonia or not +/- PNA. Procalcitonin 0.12 therefore I suspect mainly aspiration. Although he chronically aspirates he was stable here for over a week without significant aspirations while on thin liquids. Oxycodone is a new medication from when I discharged him therefore suspect this caused altered mental state increasing his aspiration risk. In addition he is much more edematous than when I discharged him therefore suspect the Lasix 40mg PO was not enough to keep off the fluid. Continue short course (suggest 5 days) Zosyn to cover for aspiration pneumonia then switch back to IV ceftriaxone (total 6 weeks, last dose 06/12) for left heel osteomyelitis after this No opiates on discharge - discussed this with Dr Wynne at [facility] and added to discharge instructions as requested. Consult palliative although I do feel it may be premature for him to go on hospice in light of him having been given oxycodone. Keep NPO for now while oxycodone weans out (choking on liquids this morning). SLT to see tomorrow. Once more alert can restart risk feeding with thin liquids and strict aspiration precautions (2) Dysphagia: Plan: Strict aspiration precaution Reconsult SLT due to altered mental status Nutritional problems when on nectar thick fluids therefore will likely go back on thin liquids with acceptance of some aspirations (3) Acute on chronic heart failure with preserved ejection fraction: Plan: Lasix 40mg IV daily, Low sodium diet once back on diet Increased fluid retention despite increasing Lasix to 40 mg p.o. daily on dis charge therefore suspect he will need 40 mg p.o. twice daily once discharged on this occasion. Consider switch of diltiazem to metoprolol succinate (4) Acute alteration in mental status: Plan: Suspect secondary to hypoxia and oxycodone use. Mostly back to his baseline this afternoon. (5) Unstageable pressure ulcer of heel: Plan: S/p incision and drainage 05/01, 6 weeks of IV ceftriaxone -Offload heels -Wound care daily and as needed -Consult ortho is further debridement necessary, wound care nurse consult for ongoing management (6) Peripheral arterial disease: Plan: Chronic. Noted on US arterial doppler. Patient has been seen by Vascular Surgery in the past. Had angiography performed on 04/28 which showed occlusion of anterior and posterior tibial arteries with patent peroneal. No intervention required. -Continue Plavix and Crestor (7) Osteomyelitis of ankle: Plan: Patient on Ceftriaxone x 6 week course -Treatment for possible aspiration event with Zosyn for now -May resume Ceftriaxone on discharge to complete course (last dose 06/12) (8) History of cerebrovascular accident: Plan: Chronic -Continue Plavix and Crestor (9) Diabetes: Plan: Chronic. Well controlled. A1C=7.4 in February 2021. -Hold oral agents, recommending restarting in [address] with IV contrast to make sure outpatient regimen is ok (stopped Actos last admission and switched to Jardiance) -Lantus 4u BID -ISS (10) Hypothyroid: Plan: Chronic. Elevated TSH with normal T4, repeat in 4-6 weeks once well. -Continue Synthroid 100mcg daily (11) Atrial flutter: Plan: Patient with post-operative atrial flutter and fibrillation. No documented recurrence. -Hold diltiazem until BP improves (12) Hypertension: Plan: -Continue to monitor - holding diltiazem as above Plan: F/E/N - Heplock. Management of PICC line per protocol - NSS flush with heparin. NPO except ice chips, sips and meds Ppx - On Lovenox 40mg daily Code - DNR/DNI Dispo - Admit to PCU Admission and Anticipated Discharge Date Admission Date: May 09, 2021 Subjective Patient was recently just discharged on after prolonged hospitalization. Readmitted Tuesday. I know him well from his prior admission. He is unable to contribute towards his history of why he is here and just tells me he wants to drink. I discussed his care with his at bedside - they have discussed PEG tube as a family previously and declined this intervention for his chronic aspirations. Patient lacks insight to contribute towards this discussion however he expresses repeatedly a desire to eat. On review of his [place] medication list he was started on oxycodone on Tuesday. I did not discharge him on opiates. Given when the patient has an altered mental state his aspiration risk is magnified I suspect this caused his large aspiration causing hypoxia and his readmission. I discussed this with Dr Wynne and suspect on prescription came from an [facility] controller physician on Kumar night. Regardless he requested on discharge instruction "opiates only to be prescribed by Dr Wynne/Madelyn") Initially placed consult for palliative care without above knowledge of oxycodone use but given this potentially reversible cause I would suggest hos pice is premature (although certainly palliative care in general is appropriate). He is also significantly more edematous than when I discharged him. Lasix 40mg IV during prior admission helped significantly with pulmonary and peripheral edema. Increased his Lasix dosing from 20->40mg PO daily on discharge however he has certainly gained excessive fluid in a short space of time despite this (he was on lasix 40mg PO for the last few days of his hospitalization without significant worsening hypervolemia). His weight is up approximately 5kg since discharge. Will likely need closer to 40mg PO BID on discharge. Review of Systems Review of Systems: Unobtainable due to cognitive status Physical Exam Constitutional: WD/WN, vitals as above Eyes: + anicteric sclerae; normal pupil size ENMT: Mouth: + dry oral mucous membranes Neck: trachea midline, no thyromegaly Respiratory: normal respiratory effort and able to speak in complete sentences; no respiratory distress, no labored breathing, no retractions, does not use accessory muscles, no cough and not tachypneic Auscultation: + diminished lung sounds (bibasal) and + rales (upper airway sounds anteriorly); no crackles Cardiovascular: Rate/Rhythm: regular rate and regular rhythm Extremities: + edema (pitting in all 4 extremities 3+ b/l in legs) Gastrointestinal (Abdomen): Inspection/Auscultation: abdomen normal to inspection and normal bowel sounds; abdomen not distended Percussion/Palpation: abdomen soft; abdomen nontender, no guarding and abdomen not rigid Musculoskeletal: no cyanosis or clubbing, extremities motor strength 5/5 Skin: Eschar on left heel without surrounding cellulitis Neurologic: moves all extremities, awake and + confused (improved to baseline throughout the day) Psychiatric: Orientation: alert and oriented to person (self and his ); + not oriented to place and + not oriented to time Insight: + poor insight Results & Data Results & Data ([facility]) Vital Signs (Past 12 Hours) Vital Signs Temp Pulse Pulse Resp BP Pulse Ox 05/10/21 10:54 36.6 C 71 17 122/50 L 100 05/10/21 08:00 65 05/10/21 07:31 37.3 C 71 18 123/52 L 100 05/10/21 03:33 37.1 C 74 18 123/60 100 05/10/21 00:00 37.1 C 91 H 20 119/88 93 PG Care Time/CCT Total # of Minutes Spent Total Time Spent with Patient: Total time spent is greater than 50% in coordination of care (as documented) at patient's floor/unit and/or counseling patient: Coding Level of Care Code 11603 Subseq Hosp Care Lvl 3 Diagnoses Acute respiratory failure with hypoxia J96.01 Acute alteration in mental status R41.82 Unstageable pressure ulcer of heel L89.600 Laterality: unspecified laterality Peripheral arterial disease I73.9 Osteomyelitis of ankle M86.172 Laterality: left Osteomyelitis type: other acute History of cerebrovascular accident Z86.73 Diabetes E11.59 Diabetes mellitus complication detail: with other circulatory complications Diabetes mellitus complication status: with circulatory complication Diabetes mellitus rn long term care insulin use: without jail use Diabetes mellitus type: type 2 Hypothyroid E03.9 Hypothyroidism type: unspecified Atrial flutter I48.92 Atrial flutter type: unspecified Hypertension I10 Hypertension type: essential hypertension Acute on chronic heart failure with preserved ejection fraction I50.33 Dysphagia R13.10 (1) Unstageable pressure ulcer of heel Laterality: unspecified laterality Qualified Code(s): L89.600 - Pressure ulcer of unspecified heel, unstageable (2) Diabetes Diabetes mellitus complication detail: with other circulatory complications Diabetes mellitus complication status: with circulatory complication Diabetes mellitus rn long term care insulin use: without rn long term care use Diabetes mellitus type: type 2 Qualified Code(s): E11.59 - Type 2 diabetes mellitus with other circulatory complications (3) Atrial flutter Atrial flutter type: unspecified Qualified Code(s): I48.92 - Unspecified atrial flutter (4) Hypothyroid Hypothyroidism type: unspecified Qualified Code(s): E03.9 - Hypothyroidism, unspecified (5) Osteomyelitis of ankle Laterality: left Osteomyelitis type: other acute Qualified Code(s): M86.172 - Other acute osteomyelitis, left ankle and foot (6) Hypertension Hypertension type: essential hypertension Qualified Code(s): I10 - Essential (primary) hypertension
--- NOTE | 2021-05-10 11:49 | Electrocardiogram Report ---
Test Reason : Blood Pressure : / mmHG Vent. Rate : 080 BPM Atrial Rate : 080 BPM P-R Int : 178 ms QRS Dur : 078 ms QT Int : 382 ms P-R-T Axes : 047 025 002 degrees QTc Int : 440 ms Poor data quality, interpretation may be adversely affected Sinus rhythm with Premature atrial complexes Nonspecific ST and T wave abnormality Abnormal ECG When compared with ECG of 20-APR-2021 22:24, Criteria for Septal infarct are no longer Present Confirmed by Kiko Stafford ([id number]) on 05/10/2021 11:48:40 AM Referred By: REFERRED SELF Confirmed By:Kiko Stafford
[2021-05-10] MEDS ORDERED: PHARMACY GLYCEMIC MGMT CONSULT PRN (11:51)
--- NOTE | 2021-05-10 12:45 | Orthopedic Consultation ---
Date of Consultation May 10, 2021 Assessment & Plan (1) Pressure ulcer, heel, left, unstageable: 86-year-old male with status post I&D of his left heel on 05/01/[address] London readmitted for acute respiratory failure with hypoxia. Continue elevation of both feet with her being on pillows versus waffle boots at this time. Daily dressing changes. We can involve wound care team starting Tuesday. The wound for the most part is dry. Consider Aquacel Ag moistened with normal sterile saline for now versus Kaltostat. Previous wound care orders were for Betadine cleansing of the demarcated area with application of Kaltostat. I will discuss the case with Dr. London who will see the patient. Question need for further radiologic studies. 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 He had a carotid endarterectomy performed 03/02/21. Patient was readmitted in April for left foot infection and eventually underwent irrigation debridement of his left heel with presumed osteomyelitis. He was continued on IV antibiotics for 6 weeks and was returned to his skilled facility. He was readmitted today for acute respiratory failure with hypoxia with question of aspiration. Been asked to see him to recheck his left heel for questionable further needs of irrigation and debridement. Currently the patient is awake and alert. He states that his heel continues to have pain mostly on palpation. No other complaints at this time. Allergies Allergy/AdvReac Type Severity Reaction Status Date / Time metoprolol AdvReac Mild GI SYMPTOMS Verified 05/09/21 17:56 Home Medications Medication Instructions Recorded Confirmed Type cholecalciferol (vitamin D3) 25 1,000 unit PO QAM 05/30/19 05/09/21 History mcg (1,000 unit) capsule (Vitamin D3) tamsulosin 0.4 mg capsule (Flomax) 0.4 mg PO HS 05/30/19 05/09/21 History levothyroxine 100 mcg tablet 100 mcg PO DAILYBB 02/16/21 05/09/21 History (Synthroid) rosuvastatin 20 mg tablet (Crestor) 20 mg PO QAM #30 tab 03/03/21 05/09/21 Rx acetaminophen 325 mg capsule 650 mg PO Q6 PRN 04/21/21 05/09/21 History (Tylenol) diltiazem HCl 120 mg 240 mg PO QAM 04/21/21 05/09/21 History capsule,extended release 12 hr metformin 1,000 mg tablet 1,000 mg PO BID 04/21/21 05/09/21 History sennosides 8.6 mg-docusate sodium 3 tab-cap PO QAM 04/21/21 05/09/21 History 50 mg capsule (Senna Plus) ceftriaxone 2 gram intravenous 2 g IV Q24H 05/09/21 05/09/21 History solution clopidogrel 75 mg tablet (Plavix) 75 mg PO QAM 05/09/21 05/09/21 History docusate sodium 100 mg capsule 100 mg PO BIDM 05/09/21 05/09/21 History (Colace) empagliflozin 10 mg tablet 10 mg PO QAM 05/09/21 05/09/21 History (Jardiance) enoxaparin 40 mg/0.4 mL 40 mg SUBCUT Q24H 05/09/21 05/09/21 History subcutaneous syringe (Lovenox) furosemide 20 mg tablet (Lasix) 40 mg PO QAM 05/09/21 05/09/21 History heparin lock flush (porcine) 10 50 unit IV QS 05/09/21 05/09/21 History unit/mL intravenous solution oxycodone 5 mg tablet (Roxicodone) 5 mg PO Q12 05/09/21 05/09/21 History sodium chloride 0.9 % (flush) 10 ml IV QS 05/09/21 05/09/21 History (Normal Saline Flush) Patient History Medical History Anemia Atrial flutter BPH (benign prostatic hyperplasia) Carotid stenosis Cellulitis Chronic kidney disease Diabetes History of aortic stenosis s/p avr Hyperlipidemia Hypertension Hypothyroid Peripheral arterial disease Squamous cell carcinoma Multiple Stroke Surgical History S/P AVR (aortic valve replacement) Bioprosthetic (25 mm Buenrostro 2 porcine valve) October 2016 Family History Uncle Parkinson disease Brother Parkinson disease Other Family history non-contributory Social History Smoking Status: Former smoker Second Hand Exposure: No; Hx Alcohol Use: No Hx Substance Use: No Preferred Language: Persian Communication Ability: Effective Event Sales Representative Required: No Beliefs That Will Affect Care: None Current Living Situation: [facility] Current Living Situation Comment: home alone with spouse. Feels Safe at Home: Yes Safety Concerns: Feels Safe At This Time Assistive Devices: Glasses, Hearing Aid - Bilateral and Oxygen - Continuous Review of Systems Review of Systems: All systems reviewed & are unremarkable except as noted in HPI & below Physical Exam Physical Exam: On examination of his left foot, there is an Optifoam dressing over the left heel. There does not appear to be much in the way of drainage on this Optifoam. Nursing staff is present and removed the Optifoam dressing that showed scant drainage. There is no foul odor. He continues to have the left heel ulceration with the blackened demarcating central portion. Around the wound edges themselves, he has an area from approximately central lateral wound edge all the way distally to the medial wound edge that has some yellow slough and or some slight purulence noted more on the lateral edge. A wound culture was taken by nursing staff in this area. He has no overt erythema. I do not appreciate much in the way of drainage. Palpation of the area does cause the patient discomfort. But I am unable to express any drainage at this time. Wound to be redressed per previous wound care orders. Results & Data ([facility]) Vital Signs (Past 12 Hours) Vital Signs Temp Pulse Pulse Resp BP Pulse Ox 05/10/21 10:54 36.6 C 71 17 122/50 L 100 05/10/21 08:00 65 05/10/21 07:31 37.3 C 71 18 123/52 L 100 05/10/21 03:33 37.1 C 74 18 123/60 100 Diagnostic Findings Patient: TOSHA MILLER JRAdmit Date: 05/09/21MR#: [id number]:[id number]: Date: 1935[facility] Zip: [place] [id number]: [id number]: EDSex: MRoom/Bed:Att Phy:Diagnosis: SOB, CHF, LEG EDEMAPri Phy: AnaidRaina Date: 05/09/21Fam Phy:Interpreting Phy: Mendel Shelby MDAdmit Phy: Ordering Phy: [facility] M.D. cc: ~ XR foot LT 2V CLINICAL HISTORY: sepsis, h/o osteo COMPARISON: Left ankle radiographs April 22, 2021. MRI of the left ankle April 23, 2021. FINDINGS: Soft tissue swelling is present. There is extensive vascular calcification. Evaluation of the pelvis is suboptimal. No acute fracture is identified. There is no radiographic evidence of acute osteomyelitis. IMPRESSION: No acute fracture. No radiographic evidence for acute osteomyelitis.
--- NOTE | 2021-05-10 13:02 | Palliative Care Consultation ---
Date of Consultation May 10, 2021 Assessment & Plan (1) Dysphagia: Improves with treatment of infection, though this is not likely to resolve. Monitor during hospital stay. He is currently NPO but cogent enough to be frequently asking for water. Given poor prognosis, he may be best served by permissive aspiration for comfort. (2) Palliative care encounter: Mr. Morrell is able to read my name agustin and tell me that palliate means to relieve suffering. However, he does not seem to have clear insight into his illness at this time. He denies pain or dyspnea and tells me that he feels good but wants water. I was not able to meet with his family today but will discuss goals of care with them moving forward. (3) Acute respiratory failure with hypoxia: (4) Aspiration pneumonia: Aspiration pneumonia type: unspecified Laterality: bilateral Lung location: lower lobe of lung Qualified Code(s): J69.0 - Pneumonitis due to inhalation of food and vomit (5) History of cerebrovascular accident: (6) Acute heart failure with preserved ejection fraction: (7) Osteomyelitis of ankle: Osteomyelitis type: other acute Laterality: left Qualified Code(s): M86.172 - Other acute osteomyelitis, left ankle and foot History of Present Illness Reason for Consultation: goals of care Requesting Physician: Dr. Zuñiga Attending Physician: Michael Zuñiga MD History of Present Illness 86 yo gentleman with diabetes, atrial flutter, peripheral vascular disease and cerebrovascular disease. He was hospitalized in February with left frontal ischemic CVA and right ICA stenosis. He did have endarterectomy at that time. He was discharged to [facility] for therapy. He was readmitted earlier this month with hypoxia and mental status changes related to left ankle osteomyelitis. He was noted to have aspiration at that time though that had resolved prior to discharge. He was discharged to [facility] on IV rocephin but was readmitted on 05/09 with similar symptoms. He continues to have left ankle infection and aspiration. He is aspirating sipping juice and coughing frequently. He is awake and alert but has some confusion. He is able to answer some questions and denies pain or shortness of breath however it does not seem that he has sufficient insight for decision making at the moment. Allergies Allergy/AdvReac Type Severity Reaction Status Date / Time metoprolol AdvReac Mild GI SYMPTOMS Verified 05/09/21 17:56 Home Medications Medication Instructions Recorded Confirmed Type cholecalciferol (vitamin D3) 25 1,000 unit PO QAM 05/30/19 05/09/21 History mcg (1,000 unit) capsule (Vitamin D3) tamsulosin 0.4 mg capsule (Flomax) 0.4 mg PO HS 05/30/19 05/09/21 History levothyroxine 100 mcg tablet 100 mcg PO DAILYBB 02/16/21 05/09/21 History (Synthroid) rosuvastatin 20 mg tablet (Crestor) 20 mg PO QAM #30 tab 03/03/21 05/09/21 Rx acetaminophen 325 mg capsule 650 mg PO Q6 PRN 04/21/21 05/09/21 History (Tylenol) diltiazem HCl 120 mg 240 mg PO QAM 04/21/21 05/09/21 History capsule,extended release 12 hr metformin 1,000 mg tablet 1,000 mg PO BID 04/21/21 05/09/21 History sennosides 8.6 mg-docusate sodium 3 tab-cap PO QAM 04/21/21 05/09/21 History 50 mg capsule (Senna Plus) ceftriaxone 2 gram intravenous 2 g IV Q24H 05/09/21 05/09/21 History solution clopidogrel 75 mg tablet (Plavix) 75 mg PO QAM 05/09/21 05/09/21 History docusate sodium 100 mg capsule 100 mg PO BIDM 05/09/21 05/09/21 History (Colace) empagliflozin 10 mg tablet 10 mg PO QAM 05/09/21 05/09/21 History (Jardiance) enoxaparin 40 mg/0.4 mL 40 mg SUBCUT Q24H 05/09/21 05/09/21 History subcutaneous syringe (Lovenox) furosemide 20 mg tablet (Lasix) 40 mg PO QAM 05/09/21 05/09/21 History heparin lock flush (porcine) 10 50 unit IV QS 05/09/21 05/09/21 History unit/mL intravenous solution oxycodone 5 mg tablet (Roxicodone) 5 mg PO Q12 05/09/21 05/09/21 History sodium chloride 0.9 % (flush) 10 ml IV QS 05/09/21 05/09/21 History (Normal Saline Flush) Patient History Medical History Anemia Atrial flutter BPH (benign prostatic hyperplasia) Carotid stenosis Cellulitis Chronic kidney disease Diabetes History of aortic stenosis s/p avr Hyperlipidemia Hypertension Hypothyroid Peripheral arterial disease Squamous cell carcinoma Multiple Stroke Surgical History S/P AVR (aortic valve replacement) Bioprosthetic (25 mm Buenrostro 2 porcine valve) October 2016 Family History Uncle Parkinson disease Brother Parkinson disease Other Family history non-contributory Social History Smoking Status: Former smoker Second Hand Exposure: No; Hx Alcohol Use: No Hx Substance Use: No Preferred Language: Pakistani Communication Ability: Effective Continuous Crusher 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 Feels Safe at Home: Yes Safety Concerns: Feels Safe At This Time Assistive Devices: Glasses, Hearing Aid - Bilateral and Oxygen - Continuous Review of Systems Review of Systems: [place] Symptom Assessment Scale Pain 0/3 Dyspnea 0/3 Anxiety 1/3 Fatigue 2/3 Drowsiness 0/3 Palliative Performance Score 30% Physical Exam Constitutional: + ill appearing; no acute distress ENMT: Mouth: + dry oral mucous membranes Respiratory: + uses accessory muscles and + cough (with drinking thin liquids) Cardiovascular: Rate/Rhythm: regular rate and regular rhythm Gastrointestinal (Abdomen): nontender Musculoskeletal: Extremities: + muscle atrophy Neurologic: awake and + confused Results & Data ([facility]) Vital Signs (Past 12 Hours) Vital Signs Temp Pulse Pulse Resp BP Pulse Ox 05/10/21 10:54 97.9 F 71 17 122/50 L 100 05/10/21 08:00 65 05/10/21 07:31 99.1 F 71 18 123/52 L 100 05/10/21 03:33 98.8 F 74 18 123/60 100 PG Care Time/CCT Total # of Minutes Spent Total Time Spent with Patient: Total time spent is greater than 50% in coordination of care (as documented) at patient's floor/unit and/or counseling patient: Coding Level of Care Code 76571 Initial Inpt Care Lvl 1 Diagnoses Palliative care encounter Z51.5 Acute respiratory failure with hypoxia J96.01 Aspiration pneumonia J69.0 Aspiration pneumonia type: unspecified Laterality: bilateral Lung location: lower lobe of lung Dysphagia R13.10 History of cerebrovascular accident Z86.73 Acute heart failure with preserved ejection fraction I50.31 Osteomyelitis of ankle M86.172 Osteomyelitis type: other acute Laterality: left
--- NOTE | 2021-05-10 15:00 | Pharmacy Report ---
Pharmacy Glycemic Short Note 2 - Date of Service May 10, 2021 - Glycemic Short BSG Results (Last 24 hours): 05/09/21 05/10/21 05/10/21 18:20 07:20 11:16 Glucose 171 H POC Glucose 177 H 156 H OUTPATIENT ANTIDIABETIC REGIMEN: * Metformin 1000 mg PO BID * Jardiance 10 mg PO daily * A1c = 7.4% 02/26/21 ASSESSMENT: * Eligio is a 86 yo T2DM male admitted with acute respiratory failure. * During an admission earlier this month he required ~ 9 units of Lantus. Novolog needs varied but tended to be 20-40 units per day. * He is currently ordered Lantus 4 units BID which I feel is appropriate for now. * He is NPO. Once patient resumes a diet, he will likely need carb coverage tightened. PLAN FOR INPATIENT GLYCEMIC CONTROL: * Hold outpatient oral diabetes medications * Basal insulin * Continue Lantus 4 units SQ BID * Bolus insulin * NovoLog per scale ACHS or Q6hrs while NPO * Goal Range: Low 100 mg/dL - High 140 mg/dL * Correction Factor: 20 mg/dL/unit * Nutritional / Prandial insulin per carb ratio of 1 unit per 6 grams CHO consumed
[2021-05-10] MEDS ORDERED: FUROSEMIDE 20 MG in SYRINGE 0 ML IV ONE (16:00)
[2021-05-10] MEDS: TAMSULOSIN HCL 0.4 MG CAP PO SCH (19:59)
[2021-05-10] MEDS: DOCUSATE SODIUM/SENNA 50/8.6MG TAB PO SCH (21:55)
[2021-05-11] MEDS: SODIUM CHLORIDE 0.9% 10ML FLUSH IV SCH ×3 (01:13→16:48)
[2021-05-11] MEDS: INSULIN ASPART 100 UNITS/ML 3 ML PEN SC SCH ×5 (01:14→21:15)
[2021-05-11] MEDS: PIPERACILLIN/TAZOBACTAM 3.375 GM in DEXTROSE 5% 100 ML IV SCH ×3 (01:14→18:03)
[2021-05-11 06:01] LABS: Basophils # (auto) 0.01 K/uL (0-0.2); Basophils % (auto) 0.2 %; Eosinophils # (auto) 0.29 K/uL (0-0.5); Eosinophils % (auto) 4.4 %; Hematocrit (blood only) 30.1 % (42-52); Hemoglobin 9.8 g/dL (14.0-18.0); Immature Granulocytes # (auto) 0.02 K/uL (0.00-0.02); Immature Granulocytes % (auto) 0.3 %; Lymphocytes # (auto) 0.65 K/uL (1.2-3.4); Lymphocytes % (auto) 9.8 %; Mean Corpuscular Hemoglobin 32.1 pg (25-34); Mean Corpuscular Hgb Conc 32.6 g/dL (32-36); Mean Corpuscular Volume 98.7 fL (80-100); Mean Platelet Volume 8.9 fL (7.4-10.4); Monocytes # (auto) 0.63 K/uL (0.11-0.59); Monocytes % (auto) 9.5 %; Neutrophils # (auto) 5.05 K/uL (1.4-6.5); Neutrophils % (auto) 75.8 %; Platelet Count 149 K/uL (130-400); RDW Coefficient of Variation 16.6 % (11.5-14.5); RDW Standard Deviation 59.8 fL (36.4-46.3); Red Blood Count 3.05 M/uL (4.7-6.1); White Blood Count 6.65 K/uL (4.8-10.8)
[2021-05-11 06:28] LABS: BUN Creatinine Ratio 27.1 (10-20); Calcium 8.3 mg/dl (8.5-10.1); Creatinine Clr Calc Pharmacy 61.8 ml/min; Est GFR (African American) 92.4 ml/min; Est GFR (Non-African American) 79.8 ml/min; Potassium 3.3 mmol/L (3.5-5.1)
[2021-05-11] MEDS: ENOXAPARIN INJ 40 MG/0.4 ML SYR SQ SCH (06:28)
[2021-05-11] MEDS: LEVOTHYROXINE SODIUM 100 MCG TABLET PO SCH (06:29)
[2021-05-11] MEDS: DOCUSATE SODIUM 100 MG CAP PO SCH ×2 (07:26→16:47)
[2021-05-11] MEDS: INSULIN GLARGINE SOLOSTAR 100 UNITS/ML 3 ML PEN SC SCH ×2 (07:26→20:07)
--- NOTE | 2021-05-11 07:55 | Hospitalist Progress Note ---
Date of Service May 11, 2021 Assessment & Plan (1) Acute respiratory failure with hypoxia: Plan: Rapid recovery after significant hypoxia again fits with aspiration whether he has an pneumonia or not +/- PNA. Procalcitonin 0.12 therefore pneumonia less likely more concern for aspiration pneumonitis Although he chronically aspirates he was stable here for over a week without significant aspirations while on thin liquids. Initial concern on presentation was for some pulmonary edema fluid overload recommending continued diuretic care Continue short course (suggest 5 days) Zosyn to cover for aspiration pneumonia then switch back to IV ceftriaxone (total 6 weeks, last dose 06/12) for left heel osteomyelitis after this SLT evaluation once more reinforces that he is a aspiration risk but the patient refuses thickened liquids.. (2) Dysphagia: Plan: Strict aspiration precaution Nutritional problems when on nectar thick fluids therefore will likely go back on thin liquids with acceptance of some aspirations (3) Acute on chronic heart failure with preserved ejection fraction: Plan: Lasix 40mg IV daily, Low sodium diet once back on diet Increased fluid retention despite increasing Lasix to 40 mg p.o. daily on discharge therefore suspect he will need 40 mg p.o. twice daily once discharged on this occasion. Diltiazem discontinued will use metoprolol if need be or consider carvedilol (4) Acute alteration in mental status: Plan: Suspect secondary to hypoxia and oxycodone use. Mostly back to his baseline this afternoon. (5) Unstageable pressure ulcer of heel: Plan: S/p incision and drainage 05/01, 6 weeks of IV ceftriaxone -Offload heels -Wound care daily and as needed -Consult ortho is further debridement necessary, wound care nurse consult for ongoing management (6) Peripheral arterial disease: Plan: Chronic. Noted on US arterial doppler. Patient has been seen by Vascular Surgery in the past. Had angiography performed on 04/28 which showed occlusion of anterior and posterior tibial arteries with patent peroneal. No intervention required. -Continue Plavix and Crestor (7) Osteomyelitis of ankle: Plan: Patient on Ceftriaxone x 6 week course -Treatment for possible aspiration event with Zosyn for now -May resume Ceftriaxone on discharge to complete course (last dose 06/12) (8) History of cerebrovascular accident: Plan: Chronic -Continue Plavix and Crestor (9) Diabetes: Plan: Chronic. Well controlled. A1C=7.4 in February 2021. -Hold oral agents, recommending restarting when resuming his outpatient regimen (stopped Actos last admission and switched to Jardiance) -Lantus 4u BID -ISS (10) Hypothyroid: Plan: Chronic. Elevated TSH with normal T4, repeat in 4-6 weeks once well. -Continue Synthroid 100mcg daily (11) Atrial flutter: Plan: Patient with post-operative atrial flutter and fibrillation. No documented recurrence. -Hold diltiazem until BP improves consider beta-anatoliy for rate control (12) Hypertension: Plan: -Continue to monitor - holding diltiazem as above Plan: F/E/N - Heplock. Management of PICC line per protocol - NSS flush with heparin. NPO except ice chips, sips and meds Ppx - On Lovenox 40mg daily Code - DNR/DNI Admission and Anticipated Discharge Date Admission Date: May 09, 2021 Subjective Patient pleasantly confused pain control is plus minus continues on Zosyn for aspiration pneumonia is chronically known to be an aspirator adamantly refuses thickened liquids Review of Systems Review of Systems: Mild distress and fatigue planes of some heel and foot pain no headache, no visual changes no speech or swallowing issues no chest pain, pressure or palpitations no shortness of breath, persistent coughing when eating no abdominal pain, nausea or vomiting, diarrhea or constipation no dysuria, hematuria or frequency no focal joint pain or swelling no back pain, CVA tenderness or radicular pain no bruising, bleeding or rashes no focal signs of weakness or numbness or altered sensation no complaints of anxiety or depression.. Physical Exam Physical Exam: The patient appeared in no acute distress Vital signs as documented. Head exam is normocephalic atraumatic Neck is without JVD, thyromegaly, or carotid bruits. Lungs are rhonchi at the bases Cardiac exam, Rhythm is regular.. No murmurs, rubs or gallops. Abdominal exam reveals normal bowel sounds, soft non tender, no masses Extremities are nonedematous and both pedal pulses are present Neurologic exam is alert and oriented x2, no focal loss of strength or sensation Skin is with black eschar to heal slightly smaller than last week Psychologically is without concerns for anxiety or depression Results & Data Results & Data ([facility]) Vital Signs (Past 12 Hours) Vital Signs Temp Pulse Resp BP Pulse Ox 05/11/21 03:00 98.4 F 76 15 137/77 100 05/10/21 22:59 98.4 F 87 22 143/96 H 97 PG Care Time/CCT Total # of Minutes Spent Total Time Spent with Patient: Total time spent is greater than 50% in coordination of care (as documented) at patient's floor/unit and/or counseling patient: Coding Level of Care Code 03234 Subseq Hosp Care Lvl 3 Diagnoses Acute respiratory failure with hypoxia J96.01 Dysphagia R13.10 Acute on chronic heart failure with preserved ejection fraction I50.33 Acute alteration in mental status R41.82 Unstageable pressure ulcer of heel L89.600 Laterality: unspecified laterality Peripheral arterial disease I73.9 Osteomyelitis of ankle M86.172 Laterality: left Osteomyelitis type: other acute History of cerebrovascular accident Z86.73 Diabetes E11.59 Diabetes mellitus complication detail: with other circulatory complications Diabetes mellitus complication status: with circulatory complication Diabetes mellitus fdc insulin use: without fdc use Diabetes mellitus type: type 2 Hypothyroid E03.9 Hypothyroidism type: unspecified Atrial flutter I48.92 Atrial flutter type: unspecified Hypertension I10 Hypertension type: essential hypertension (1) Unstageable pressure ulcer of heel Laterality: unspecified laterality Qualified Code(s): L89.600 - Pressure ulcer of unspecified heel, unstageable (2) Diabetes Diabetes mellitus complication detail: with other circulatory complications Diabetes mellitus complication status: with circulatory complication Diabetes mellitus fdc insulin use: without fdc use Diabetes mellitus type: type 2 Qualified Code(s): E11.59 - Type 2 diabetes mellitus with other circulatory complications (3) Atrial flutter Atrial flutter type: unspecified Qualified Code(s): I48.92 - Unspecified atrial flutter (4) Hypothyroid Hypothyroidism type: unspecified Qualified Code(s): E03.9 - Hypothyroidism, unspecified (5) Osteomyelitis of ankle Laterality: left Osteomyelitis type: other acute Qualified Code(s): M86.172 - Other acute osteomyelitis, left ankle and foot (6) Hypertension Hypertension type: essential hypertension Qualified Code(s): I10 - Essential (primary) hypertension
[2021-05-11] MEDS: FUROSEMIDE 40 MG in SYRINGE 0 ML IV SCH (08:15)
[2021-05-11] MEDS: CLOPIDOGREL BISULFATE 75 MG TAB PO SCH (08:17)
[2021-05-11] MEDS: ROSUVASTATIN CALCIUM 20 MG TAB PO SCH (08:17)
[2021-05-11] MEDS: CHOLECALCIFEROL 1,000 UNITS 25 MCG TAB PO SCH (08:17)
[2021-05-11] MEDS: POLYETHYLENE (MIRALAX) 17 GM PACK PO SCH (08:19)
[2021-05-11] MEDS: POTASSIUM CHLORIDE CRTAB 20 MEQ TABCR PO SCH ×2 (08:56→08:58)
[2021-05-11] MEDS ORDERED: POTASSIUM CHLORIDE 10 MEQ / 100ML WTR IV STA (09:01)
[2021-05-11] MEDS ORDERED: MAGNESIUM SULFATE / D5W 1 GM/100 ML BAG IV ONE (09:01)
[2021-05-11] MEDS: POTASSIUM CHLORIDE / WTR 10 MEQ/100 ML PLCT IV SCH ×3 (09:46→11:48)
[2021-05-11] MEDS: TAMSULOSIN HCL 0.4 MG CAP PO SCH (19:59)
[2021-05-11] MEDS: DOCUSATE SODIUM/SENNA 50/8.6MG TAB PO SCH (19:59)
[2021-05-11] MEDS ORDERED: oxyCODONE HCL IR 5 MG TAB (IMMEDIATE RELEASE) PO PRN (20:04)
[2021-05-11] MEDS ORDERED: Nursing to Pharmacy Communication SCH (21:00)
[2021-05-11] MEDS: METOPROLOL TARTRATE 25 MG TAB PO SCH (21:01)
[2021-05-12] MEDS: SODIUM CHLORIDE 0.9% 10ML FLUSH IV SCH ×3 (01:00→15:27)
[2021-05-12] MEDS: PIPERACILLIN/TAZOBACTAM 3.375 GM in DEXTROSE 5% 100 ML IV SCH ×2 (02:43→09:29)
[2021-05-12] MEDS: ENOXAPARIN INJ 40 MG/0.4 ML SYR SQ SCH (06:02)
[2021-05-12] MEDS: LEVOTHYROXINE SODIUM 100 MCG TABLET PO SCH (06:02)
[2021-05-12 07:09] LABS: BUN Creatinine Ratio 26.9 (10-20); Calcium 7.9 mg/dl (8.5-10.1); Creatinine Clr Calc Pharmacy 68.6 ml/min; Est GFR (African American) 96.5 ml/min; Est GFR (Non-African American) 83.3 ml/min; Potassium 3.6 mmol/L (3.5-5.1)
--- NOTE | 2021-05-12 07:35 | Hospitalist Progress Note ---
Date of Service May 12, 2021 Assessment & Plan (1) Fever: Plan: pt had a fever has osteomyelitis and high risk for aspiration, will change antibiotics to ceftriaxone, family wants to continue antibiotics at present (2) Acute respiratory failure with hypoxia: Plan: Rapid recovery after significant hypoxia again fits with aspiration whether he has an pneumonia or not +/- PNA. Procalcitonin 0.12 therefore pneumonia less likely more concern for aspiration pneumonitis Although he chronically aspirates he was stable here for over a week without significant aspirations while on thin liquids. Initial concern on presentation was for some pulmonary edema fluid overload recommending continued diuretic care switch back to IV ceftriaxone (total 6 weeks, last dose 06/12) for left heel osteomyelitis after this SLT evaluation once more reinforces that he is a aspiration risk but the patient refuses thickened liquids.. (3) Dysphagia: Plan: Strict aspiration precaution Nutritional problems when on nectar thick fluids therefore will likely go back on thin liquids with acceptance of some aspirations (4) Acute on chronic heart failure with preserved ejection fraction: Plan: stopping diuretics as is on comfort measures and has poor po intake (5) Acute alteration in mental status: Plan: Suspect secondary to hypoxia and oxycodone use. (6) Unstageable pressure ulcer of heel: Plan: S/p incision and drainage 05/01, 6 weeks of IV ceftriaxone -Offload heels -Wound care daily and as needed -Consult ortho is further debridement necessary, wound care nurse consult for ongoing management (7) Peripheral arterial disease: Plan: Chronic. Noted on US arterial doppler. Patient has been seen by Vascular Surgery in the past. Had angiography performed on 04/28 which showed occlusion of anterior and posterior tibial arteries with patent peroneal. No intervention required. (8) Osteomyelitis of ankle: Plan: Patient on Ceftriaxone x 6 week course(last dose 06/12) (9) History of cerebrovascular accident: Plan: Chronic -stopping Plavix and Crestor (10) Diabetes: Plan: Chronic. Well controlled. A1C=7.4 in February 2021. (11) Hypothyroid: Plan: Chronic. Elevated TSH with normal T4, repeat in 4-6 weeks once well. -Continue Synthroid 100mcg daily (12) Atrial flutter: Plan: Patient with post-operative atrial flutter and fibrillation. No documented recurrence. -Hold diltiazem (13) Hypertension: Plan: -Continue to monitor - holding diltiazem as above Plan: F/E/N - Heplock. Management of PICC line per protocol - NSS flush with heparin. NPO except ice chips, sips and meds will transition to comfort care Code - DNR/DNI Admission and Anticipated Discharge Date Admission Date: May 09, 2021 Subjective PT is intermittently confused, now transitioned to comfort care , will move from telemetry Review of Systems Review of Systems: Mild distress and fatigue planes of some heel and foot pain no headache, no visual changes no speech or swallowing issues no chest pain, pressure or palpitations no shortness of breath, persistent coughing when eating no abdominal pain, nausea or vomiting, diarrhea or constipation no dysuria, hematuria or frequency no focal joint pain or swelling no back pain, CVA tenderness or radicular pain no bruising, bleeding or rashes no focal signs of weakness or numbness or altered sensation no complaints of anxiety or depression.. Physical Exam Physical Exam: The patient appeared in no acute distress Vital signs as documented. Head exam is normocephalic atraumatic Neck is without JVD, thyromegaly, or carotid bruits. Lungs are rhonchi at the bases Cardiac exam, Rhythm is regular.. No murmurs, rubs or gallops. Abdominal exam reveals normal bowel sounds, soft non tender, no masses Extremities are nonedematous and both pedal pulses are present Neurologic exam is alert and oriented x2, no focal loss of strength or sensation Skin is with black eschar to heal slightly smaller than last week Psychologically is without concerns for anxiety or depression Results & Data Results & Data ([facility]) Vital Signs (Past 12 Hours) Vital Signs Temp Pulse Resp BP Pulse Ox 05/12/21 04:53 99.0 F 79 18 109/44 L 91 05/12/21 00:00 98.2 F 69 18 121/81 99 PG Care Time/CCT Total # of Minutes Spent Total Time Spent with Patient: Total time spent is greater than 50% in coordination of care (as documented) at patient's floor/unit and/or counseling patient: Coding Level of Care Code 81050 Subseq Hosp Care Lvl 2 Diagnoses Acute respiratory failure with hypoxia J96.01 Dysphagia R13.10 Acute on chronic heart failure with preserved ejection fraction I50.33 Acute alteration in mental status R41.82 Unstageable pressure ulcer of heel L89.600 Laterality: unspecified laterality Peripheral arterial disease I73.9 Osteomyelitis of ankle M86.172 Laterality: left Osteomyelitis type: other acute History of cerebrovascular accident Z86.73 Diabetes E11.59 Diabetes mellitus complication detail: with other circulatory complications Diabetes mellitus complication status: with circulatory complication Diabetes mellitus chcf insulin use: without chcf use Diabetes mellitus type: type 2 Hypothyroid E03.9 Hypothyroidism type: unspecified Atrial flutter I48.92 Atrial flutter type: unspecified Hypertension I10 Hypertension type: essential hypertension Fever R50.9 (1) Unstageable pressure ulcer of heel Laterality: unspecified laterality Qualified Code(s): L89.600 - Pressure ulcer of unspecified heel, unstageable (2) Diabetes Diabetes mellitus complication detail: with other circulatory complications Diabetes mellitus complication status: with circulatory complication Diabetes mellitus chcf insulin use: without long goods drier use Diabetes mellitus type: type 2 Qualified Code(s): E11.59 - Type 2 diabetes mellitus with other circulatory complications (3) Atrial flutter Atrial flutter type: unspecified Qualified Code(s): I48.92 - Unspecified atrial flutter (4) Hypothyroid Hypothyroidism type: unspecified Qualified Code(s): E03.9 - Hypothyroidism, unspecified (5) Osteomyelitis of ankle Laterality: left Osteomyelitis type: other acute Qualified Code(s): M86.172 - Other acute osteomyelitis, left ankle and foot (6) Hypertension Hypertension type: essential hypertension Qualified Code(s): I10 - Essential (primary) hypertension
--- NOTE | 2021-05-12 08:19 | XRay Report ---
XR chest 1V portable HISTORY: 86 years-old Male eval for ASP PNX acute shortness of breath COMPARISON: Chest radiograph and CTA chest 05/09/2021 TECHNIQUE: Portable AP view of the chest FINDINGS: Cardiac silhouette is enlarged. Aortic valvular prosthesis. Opacity of the medial right lung apex is new from prior. Persistent bibasilar opacities. No pneumothorax, large pleural effusion or overt pulm onary edema. Degenerative changes of the shoulders and spine. IMPRESSION: 1. New opacity of the medial right lung apex is likely secondary to summation density with patient ro tation. 2. Persistent bibasilar densities suggestive of atelectasis versus pneumonitis. 3. Cardiomegaly without overt pulmonary edema. ACT 112: Negative or not required by law. The above report was generated using voice recognition software. It may contain grammatical, syntax o r spelling errors. Electronically signed by: Deandre Ngo M.D. 05/12/2021 8:18 AM
[2021-05-12] MEDS: DOCUSATE SODIUM 100 MG CAP PO SCH (09:23)
[2021-05-12] MEDS: POLYETHYLENE (MIRALAX) 17 GM PACK PO SCH (09:27)
[2021-05-12] MEDS: INSULIN ASPART 100 UNITS/ML 3 ML PEN SC SCH ×2 (09:29→11:50)
[2021-05-12] MEDS: CHOLECALCIFEROL 1,000 UNITS 25 MCG TAB PO SCH (09:31)
[2021-05-12] MEDS: METOPROLOL TARTRATE 25 MG TAB PO SCH ×2 (09:31→21:38)
[2021-05-12] MEDS: FUROSEMIDE 40 MG in SYRINGE 0 ML IV SCH (09:31)
[2021-05-12] MEDS: INSULIN GLARGINE SOLOSTAR 100 UNITS/ML 3 ML PEN SC SCH (09:31)
[2021-05-12] MEDS: CLOPIDOGREL BISULFATE 75 MG TAB PO SCH (09:32)
[2021-05-12] MEDS: ROSUVASTATIN CALCIUM 20 MG TAB PO SCH (09:32)
--- NOTE | 2021-05-12 10:31 | Palliative Care Progress Note ---
Date of Service May 12, 2021 Assessment & Plan (1) Dysphagia: Plan: Patient with chronic dysphagia. He is receiving treatment for aspiration PNA with Zosyn; however, this is expected to continue in the future. When I saw the patient this morning, he agreed that he did not want to drink the thickened liquids. When I asked him what he wanted to eat, he said "coke and potato chips". I was able to talk with Portia, his regarding permissive aspiration. We disc ussed the likelihood of his aspiration to continue with his known progressive illness, she is in full understanding of this. We discussed the joys of tactile stimulation of food on your tongue, joyful eating and the fact that he has eaten normally for > 85 years and Portia understands why he would not want to shift to a nectar thickened approach to his diet. She mentioned that this conversation had been started when he was at [facility], but never was fully addressed. She said that the family does understand the risk vs benefits of comfort/permissive feedings. Comfort feeding orders will be placed. (2) Palliative care encounter: Plan: I was able to talk at length with Eligio Pearce's at [phone] at length. She stated that they have been moving forward to have Mr. Morrell become a resident at [facility], and would like him to go there upon discharge, pending bed availability, if able. We discussed his condition in detail, including his medications. He has been intermittently refusing some of his medications and partly this could be due to the volume of medications that he is prescribed. We discussed decreasing his medication list to focus on having just a few medications on board, we went through his medications and will discontinue some of these, including his anticoagulants, understanding the associated stroke risk. For now, we will begin a transition to comfort measures. We will discontinue laboratory draws, vital signs, and glucose sticks; along with focusing on comfort feeding as patient requests. Continue IV abx and oral medications as the patient tolerates while admitted. (3) Acute respiratory failure with hypoxia: Plan: Appears comfortable now. On 2LNC. He has even, unlabored respirations. Likely exacerbated with aspiration. (4) Aspiration pneumonia: Plan: Chronic. On IV Zosyn, to continue through hospital stay. Likely to continue. Permissive aspiration. (5) History of cerebrovascular accident: Plan: On PO Plavix and SQ Lovenox. Discussed risk vs benefits of continuing treatment and known stroke risk with discontinuing. Discussed with pt , will discontinue at this time. Focus on Hospice at discharge. (6) Acute heart failure with preserved ejection fraction: (7) POLST (Physician Orders for Life-Sustaining Treatment): Plan: POLST discussed over the phone with the patients , January and it reads as follows: DNR/DNI, SECTION LEAD[employer] MACHINE [employer]TER, trial abx, no artificial nutrition/hydration. Avoid any future hospitalizations unless cleared by family first. Focus on quality and dignity towards end of life. Admission and Anticipated Discharge Date Admission Date: May 09, 2021 Subjective Patient is intermittently confused, but able to answer questions. He denies pain, but does state that he will not drink the thickened liquids. He expressed that all he wants is a 'coke and potato chips' Please see A/P for conversation with family. Review of Systems Review of Systems: [place] Symptom Assessment Scale Pain 0/3 Dyspnea 0/3 Anxiety 1/3 Fatigue 2/3 Drowsiness 0/3 Lack of Appetite: 1/3 Palliative Performance Score 30% Physical Exam Constitutional: + ill appearing; no acute distress ENMT: Mouth: + dry oral mucous membranes Respiratory: + uses accessory muscles and + cough (with drinking thin liquids) Cardiovascular: Rate/Rhythm: regular rate and regular rhythm Musculoskeletal: Extremities: + muscle atrophy Neurologic: awake and + confused Results & Data ([facility]) Vital Signs (Past 12 Hours) Vital Signs Temp Pulse Resp BP Pulse Ox 05/12/21 08:26 37.0 C 89 18 143/76 H 95 05/12/21 04:53 37.2 C 79 18 109/44 L 91 05/12/21 00:00 36.8 C 69 18 121/81 99 PG Care Time/CCT Total # of Minutes Spent Total Time Spent with Patient: Total time spent is greater than 50% in coordination of care (as documented) at patient's floor/unit and/or counseling patient: 45 minutes with > 50% of that time spent assessing the patient, discussing goals of care with the patients , assessing symptom management needs, and collaborating with IDT. Coding Level of Care Code 87667 Subseq Hosp Care Lvl 3 Diagnoses Dysphagia R13.10 Palliative care encounter Z51.5 Acute respiratory failure with hypoxia J96.01 Aspiration pneumonia J69.0 Aspiration pneumonia type: unspecified Laterality: bilateral Lung location: lower lobe of lung History of cerebrovascular accident Z86.73 Acute heart failure with preserved ejection fraction I50.31 POLST (Physician Orders for Life-Sustaining Treatment) Z78.9 Time Spent (min) 45 (1) Aspiration pneumonia Aspiration pneumonia type: unspecified Laterality: bilateral Lung location: lower lobe of lung Qualified Code(s): J69.0 - Pneumonitis due to inhalation of food and vomit
[2021-05-12] MEDS ORDERED: DOCUSATE SODIUM 100 MG CAP PO PRN (12:40)
[2021-05-12] MEDS ORDERED: cefTRIAXone SODIUM 2,000 MG in DEXTROSE 5% 50 ML IV SCH (16:00)
[2021-05-12] MEDS ORDERED: MoRPHine SULFATE 2 MG/ML CARP IV PRN (20:09)
[2021-05-12] MEDS: TAMSULOSIN HCL 0.4 MG CAP PO SCH (21:38)
[2021-05-13] MEDS: LEVOTHYROXINE SODIUM 100 MCG TABLET PO SCH (05:34)
[2021-05-13] MEDS: ACETAMINOPHEN 500 MG TAB PO PRN ×2 (08:32→18:25)
[2021-05-13] MEDS: METOPROLOL TARTRATE 25 MG TAB PO SCH ×4 (08:34→22:30)
--- NOTE | 2021-05-13 10:16 | Hospitalist Progress Note ---
Date of Service May 13, 2021 Assessment & Plan (1) Need for comfort care: Plan: IV access is challenging attempting oral medications of cefdinir will prescribe morphine concentrate for pain control augmented by intravenous morphine as needed (2) Fever: Plan: pt has osteomyelitis and high risk for aspiration, patient declines to eat thickened liquids and is at high aspiration risk he is declining without oral intake family is now wishing to pursue comfort measures initially antibiotics were continued but with declining oral intake and loss of IV access as the patient ripped out his PICC line we not feel it would be in best interest to place PICC line given there is an uncomfortable situation. (3) Acute respiratory failure with hypoxia: Plan: Rapid recovery after significant hypoxia again fits with aspiration whether he has an pneumonia or not +/- PNA. Procalcitonin 0.12 therefore pneumonia less likely more concern for aspiration pneumonitis (4) Dysphagia: Plan: Strict aspiration precaution Nutritional problems when on nectar thick fluids therefore will likely go back on thin liquids with acceptance of some aspirations (5) Acute on chronic heart failure with preserved ejection fraction: Plan: stopping diuretics as is on comfort measures and has poor po intake (6) Acute alteration in mental status: Plan: Suspect secondary to hypoxia and oxycodone use. toxic encepahopathy (7) Unstageable pressure ulcer of heel: Plan: -Offload heels -Wound care daily and as needed -Pressure ulcer of left heel, at least a stage 3 (8) Peripheral arterial disease: Plan: Chronic. Noted on US arterial doppler. Patient has been seen by Vascular Surgery in the past. Had angiography performed on 04/28 which showed occlusion of anterior and posterior tibial arteries with patent peroneal. No intervention required. (9) Osteomyelitis of ankle: Plan: previously Patient on Ceftriaxone x 6 week course(last dose supposed to be 06/12) (10) History of cerebrovascular accident: Plan: Chronic -stopping Plavix and Crestor (11) Diabetes: Plan: Chronic. A1C=7.4 in February 2021. (12) Hypothyroid: Plan: Chronic. Elevated TSH with normal T4, -typically on Synthroid 100mcg daily (13) Atrial flutter: Plan: Patient with post-operative atrial flutter and fibrillation. No documented recurrence. -Hold diltiazem (14) Hypertension: Plan: - holding diltiazem as above Plan: pt pulled out picc, using oral morphine, allowed pleasure eating comfort care Code - DNR/DNI Admission and Anticipated Discharge Date Admission Date: May 09, 2021 Subjective Patient seems fairly comfortable mostly complaining of bilateral foot burning and pain Review of Systems Review of Systems: Mild distress and fatigue complains of continued heel and foot pain no headache, no visual changes Ongoing swallowing issues and continues declining oral intake no chest pain, pressure or palpitations no shortness of breath, persistent coughing when eating no abdominal pain, nausea or vomiting, diarrhea or constipation no dysuria, hematuria or frequency Bilateral foot joint pain no back pain, CVA tenderness or radicular pain lower extremity skin changes previous site of known infection no focal signs of weakness or numbness or altered sensation no complaints of anxiety or depression.. Physical Exam Physical Exam: The patient appeared with running away fading Vital signs as documented. Head exam is normocephalic atraumatic Neck is without JVD, thyromegaly, or carotid bruits. Lungs diminished at the bases with rhonchi Cardiac exam, Rhythm is regular.. No murmurs, rubs or gallops. Abdominal exam reveals normal bowel sounds, soft non tender, no masses Extremities mildly edematous and plethoric Neurologic exam is alert and oriented x2, no focal loss of strength decree sensation distally Skin is with black eschar to heal slightly smaller than last week Results & Data Results & Data ([facility]) Vital Signs (Past 12 Hours) Vital Signs Pulse BP 05/13/21 08:40 87 149/73 H PG Care Time/CCT Total # of Minutes Spent Total Time Spent with Patient: Total time spent is greater than 50% in coordination of care (as documented) at patient's floor/unit and/or counseling patient: Coding Level of Care Code 79250 Subseq Hosp Care Lvl 2 Diagnoses Fever R50.9 Acute respiratory failure with hypoxia J96.01 Dysphagia R13.10 Acute on chronic heart failure with preserved ejection fraction I50.33 Acute alteration in mental status R41.82 Unstageable pressure ulcer of heel L89.600 Laterality: unspecified laterality Peripheral arterial disease I73.9 Osteomyelitis of ankle M86.172 Laterality: left Osteomyelitis type: other acute History of cerebrovascular accident Z86.73 Diabetes E11.59 Diabetes mellitus complication detail: with other circulatory complications Diabetes mellitus complication status: with circulatory complication Diabetes mellitus lobsterman insulin use: without lobsterman use Diabetes mellitus type: type 2 Hypothyroid E03.9 Hypothyroidism type: unspecified Atrial flutter I48.92 Atrial flutter type: unspecified Hypertension I10 Hypertension type: essential hypertension Need for comfort care (1) Unstageable pressure ulcer of heel Laterality: unspecified laterality Qualified Code(s): L89.600 - Pressure ulcer of unspecified heel, unstageable (2) Diabetes Diabetes mellitus complication detail: with other circulatory complications Diabetes mellitus complication status: with circulatory complication Diabetes mellitus retirement insulin use: without lobsterman use Diabetes mellitus type: type 2 Qualified Code(s): E11.59 - Type 2 diabetes mellitus with other circulatory complications (3) Atrial flutter Atrial flutter type: unspecified Qualified Code(s): I48.92 - Unspecified atrial flutter (4) Hypothyroid Hypothyroidism type: unspecified Qualified Code(s): E03.9 - Hypothyroidism, unspecified (5) Osteomyelitis of ankle Laterality: left Osteomyelitis type: other acute Qualified Code(s): M86.172 - Other acute osteomyelitis, left ankle and foot (6) Hypertension Hypertension type: essential hypertension Qualified Code(s): I10 - Essential (primary) hypertension
[2021-05-13] MEDS: FUROSEMIDE 40 MG in SYRINGE 0 ML IV SCH (10:41)
[2021-05-13] MEDS: CEFDINIR 300 MG CAP PO SCH ×3 (13:30→22:29)
[2021-05-13] MEDS ORDERED: MoRPHine SULFATE 10 MG/0.5 ML UDP PO PRN (18:45)
[2021-05-13] MEDS ORDERED: LORazepam 1 MG TAB SL PRN (18:46)
[2021-05-13] MEDS: TAMSULOSIN HCL 0.4 MG CAP PO SCH ×2 (22:24→22:30)
[2021-05-14] MEDS: LEVOTHYROXINE SODIUM 100 MCG TABLET PO SCH (06:00)
[2021-05-14] MEDS: ACETAMINOPHEN 500 MG TAB PO PRN (07:34)
[2021-05-14] MEDS ORDERED: cephALEXin 500 MG CAP PO SCH (09:00)
[2021-05-14] MEDS: METOPROLOL TARTRATE 25 MG TAB PO SCH (10:23)
[2021-05-14] MEDS: CEFDINIR 300 MG CAP PO SCH (10:23)
--- NOTE | 2021-05-14 19:00 | Discharge Summary ---
Date of Service May 14, 2021 Admission HPI Per Admitting Provider Eligio Morrell is an 86yo male with history of HTN, HLP, DM, Atrial flutter. 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 He had a carotid endarterectomy performed by Dr. Leon on 03/02/21. He was discharged to [facility] then subsequently [facility]. He returned to [facility] on 04/21/21 with confusion/AMS and hypoxia. He was found to have diabetic foot infection with possible osteomyelitis of the left ankle. He had an I&D performed on 05/01/21 of his left heel ulcer by Dr. London. He was discharged on IV Ceftriaxone to complete a 6 week course. Patient was discharged on 05/07/21 to [facility]. is at bedside and provides history. She states that she was contacted by [facility] today because patient was reportedly hypoxic and confused. There was also concern that his PICC line was not functioning and that he may be retaining fluid. She said that she spoke with him on the phone he had a very wet cough. states that visitation is quite limited at [facility] due to Covid-19 precautions. She is not able to visit her often and is not updated regularly on his condition. She denies mention of other symptoms, specifically fever, vomiting, diarrhea. She is fairly certain that her had an aspiration event which led to his decreased oxygenation today. She reports that his mental status has been waxing and waning since the stroke in February. At times he is engaged in conversation but mostly is tired. He does not ambulate and is mostly bed ridden. He requires assistance with ADLs. Patient in respiratory distress upon arrival - RR of 26. He was placed on BiPAP in the ER - initially 10/5 100% FiO2 - ABG on those settings 7.48/45/407. His FiO2 was decreased to 40%. SpO2 maintained >92%. He was transported upstairs on nasal cannula without difficulty. Principal Diagnosis transition to hospice at [facility] chronic aspiration with decision not to follow aspiration precautions heel osteomyelitis Discharge Exam Patient is more awake and alert he had reasonable pain control his had requested no opiate therapy for pain. Patient be discharged on oral antibiotics having completed IV antibiotics for a minimum of 2 weeks he will continue 4 more weeks of oral cefdinir however he is transitioning to hospice and is unclear whether he would decline due to his chronic aspiration state Discharge Data Allergies Allergy/AdvReac Type Severity Reaction Status Date / Time metoprolol AdvReac Mild GI SYMPTOMS Verified 05/09/21 17:56 almond AdvReac Unknown Cough Verified 05/10/21 17:42 Consultations 05/09/21 21:03 ED Decision to Admit Stat 05/10/21 08:32 Consult Palliative Care Routine 05/10/21 11:32 Consult Orthopedic Surgery Routine Ordered Studies 05/09/21 18:26 CT abd pelvis IV con only Stat CT angio chest PE protocol Stat CT head/brain wo con Stat Hospital Course (1) Need for comfort care: IV access is challenging attempting oral medications of cefdinir attempted to prescribe morphine concentrate for pain control but did not want opiates to cloud his sensorium (2) Fever: pt has osteomyelitis and high risk for aspiration, patient declines to eat thickened liquids and is at high aspiration risk he is declining without oral intake family is now wishing to pursue comfort measures initially a ntibiotics were continued but with declining oral intake and loss of IV access as the patient ripped out his PICC line Given his hospice status, will not replace an attempt to use oral medicines ( al though aspiration risk) to complete the 6 week course, however with decision to move to hospice therapy picc line antibiotic therapy seem contrary to the spirit of hospice care (3) Acute respiratory failure with hypoxia: Rapid recovery after significant hypoxia again fits with aspiration whether he has an pneumonia or not +/- PNA. Procalcitonin 0.12 therefore pneumonia less likely more concern for aspiration pneumonitis, transitioned back to cephalosporin for heel infection (4) Dysphagia: Pt refuses aspiration precaution particularly thickened liquids, he states he knows he should but still refuses it therefore will likely go back on thin liquids with acceptance of some aspirations (5) Acute on chronic heart failure with preserved ejection fraction: stopping diuretics as is on comfort measures and has poor po intake (6) Acute alteration in mental status: Suspect secondary to hypoxia and oxycodone use. toxic encepahopathy, this however has sensitized family and influences their request not to use opiates, which will be a challenge entering hospice care (7) Unstageable pressure ulcer of heel: -Offload heels -Wound care for comfort -Pressure ulcer of left heel, at least a stage 3 (8) Peripheral arterial disease: Chronic. Noted on US arterial doppler. Patient has been seen by Vascular Surgery in the past. Had angiography performed on 04/28 which showed occlusion of anterior and posterior tibial arteries with patent peroneal. No intervention required. (9) Osteomyelitis of ankle: previously Patient on Ceftriaxone x 6 week course(last dose supposed to be 06/12), since pt pulled out picc and did not wish for it to be retried, will have on po cefdinir (10) History of cerebrovascular accident: Chronic -stopping Plavix and Crestor (11) Diabetes: Chronic. A1C=7.4 in February 2021. (12) Hypothyroid: Chronic. Elevated TSH with normal T4, -typically on Synthroid 100mcg daily (13) Atrial flutter: Patient with post-operative atrial flutter and fibrillation. No documented recurrence. -Hold diltiazem (14) Hypertension: - holding diltiazem as above pt pulled out picc, , allowed pleasure eating comfort care Code - DNR/DNI Total Time Total Time Spent Total Time Spent (In Minutes): It required greater than 30 minutes to prepare this patient for discharge Discharge Plan Discharge Items Patient Disposition: Hospice - Medical Facility Reason For Visit: ASPIRATION Discharge Diagnosis: encephalopathy felt possible secondary to opiates med treatment of heel osteomyelitis aspiration pneumonia with chronic aspiration, pt refused to alter diet or take thickened liquids thus prompting family to consider hospice care Activity: Per Instructions section Activity Comment: activity for comfort Non-emergency contact: Primary Care Provider Call non-emergency contact if: your pain is not controlled Follow-up/Referrals: [facility] [Primary Care Provider] - Diet: Regular Diet Comment: should be mechanical soft nectar thick Addtl Attending Provider Instructions: This patient is entering the hospice care because of his refusal to consider altering diet or thickening liquids and is chronically aspirating liquids. The patient is currently undergoing treatment for osteomyelitis of his heel. He received intravenous antibiotics previously while in the hospital up until the day he removed his PICC line which was approximately 05/11/2021. He subsequently been transitioned to hospice we switched him to oral antibiotics to be swallowed carefully with a small sip understanding this is less than optimal however since he had almost 3 weeks of IV therapy will continue with cephalosporin orally. There is some concern as he initially presented with encephalopathy with the admitting doctor informed the family was likely from an opiate now the family is wary of using opiates for pain control. The patient currently has very little need for pain control however as things progress with poor oral intake good with hydration and nutrition discussions with hospice may lead to having to readdress the need for opiate control. Pending Studies at Discharge: No Stand-Alone Forms: My [facility] Skilled Items Patient informed of condition?: Yes DNR: Yes Discharge Level of Care: Other Communicable Disease: No Discharge Prognosis: Deteriorating Lines: None Urinary Catheter: Yes Medications and DC Order Prescriptions: New cefdinir 300 mg Capsule 300 mg PO BID Qty: 56 RF: 0 metoprolol tartrate 25 mg Tablet 12.5 mg PO BID Qty: 60 RF: 0 Continued levothyroxine [Synthroid] 100 mcg tablet 100 mcg PO DAILYBB RF: 0 tamsulosin [Flomax] 0.4 mg capsule 0.4 mg PO HS RF: 0 cholecalciferol (vitamin D3) [Vitamin D3] 1,000 unit Capsule 1,000 unit PO QAM RF: 0 docusate sodium [Colace] 100 mg capsule 100 mg PO BIDM RF: 0 Changed acetaminophen [Tylenol] 325 mg Capsule 1,000 mg PO Q6 PRN (Reason: Fever Or Pain) Qty: 0 RF: 0 Discontinued heparin lock flush (porcine) 10 unit/mL Solution 50 unit IV QS RF: 0 oxycodone [Roxicodone] 5 mg Tablet 5 mg PO Q12 RF: 0 sodium chloride 0.9 % (flush) [Normal Saline Flush] Syringe 10 ml IV QS RF: 0 ceftriaxone 2 gram recon soln 2 g IV Q24H RF: 0 clopidogrel [Plavix] 75 mg tablet 75 mg PO QAM RF: 0 furosemide [Lasix] 20 mg tablet 40 mg PO QAM RF: 0 enoxaparin [Lovenox] 40 mg/0.4 mL syringe 40 mg subcut Q24H RF: 0 Jardiance 10 mg tablet 10 mg PO QAM RF: 0 rosuvastatin [Crestor] 20 mg Tablet 20 mg PO QAM Qty: 30 RF: 0 diltiazem HCl 120 mg Capsule,Extended Release 12 Hr 240 mg PO QAM RF: 0 metformin 1,000 mg Tablet 1,000 mg PO BID RF: 0 Senna Plus 8.6-50 mg Capsule 3 tab-cap PO QAM RF: 0 Discharge Orders: Discharge Order (Routine); Ordered 05/14/21 Ordered By: Cirilo Bran Admission Data Admit Date/Time: 05/09/21 22:18 Attending Provider: Cirilo Bran Admit Provider: Gwendolyn Truong [facility] Other Providers: [facility] ; Gwendolyn Truong ; Claudia Jasmine ; Dustin London ; [facility] Other Interventions: Discharge Summary Assessment (RN) Last Done: 05/14/21 14:38 Coding Level of Care Code D/C DAY MANAGEMENT >30 MINS Diagnoses Need for comfort care Fever R50.9 Acute respiratory failure with hypoxia J96.01 Dysphagia R13.10 Acute on chronic heart failure with preserved ejection fraction I50.33 Acute alteration in mental status R41.82 Unstageable pressure ulcer of heel L89.600 Laterality: unspecified laterality Peripheral arterial disease I73.9 Osteomyelitis of ankle M86.172 Osteomyelitis type: other acute Laterality: left History of cerebrovascular accident Z86.73 Diabetes E11.59 Diabetes mellitus type: type 2 Diabetes mellitus long line teamster insulin use: without long line teamster use Diabetes mellitus complication status: with circulatory complication Diabetes mellitus complication detail: with other circulatory complications Hypothyroid E03.9 Hypothyroidism type: unspecified Atrial flutter I48.92 Atrial flutter type: unspecified Hypertension I10 Hypertension type: essential hypertension
== END 2021-05-14 16:43 | disposition hospice, inpatient (51) | DRG 177 ==
LOC: ED 17:35 → SUATTDRO 22:18 → 2E 22:18 → 3E 05-12 17:59